=== PATIENT | female | born 1950 | race Caucasian/White ===

== ENCOUNTER 2017-10-16 13:50 | Emergency (ER) | payer MEDICARE, SELFPAY ==
[2017-10-16 13:51] VITALS: BP 154/76; PULSE 64; RESP 16; TEMP 36.9; O2SAT 99; BMI 26.4
--- NOTE | 2017-10-16 14:16 | EKG12_ITS ---
Test Reason : PALPITATIONS Blood Pressure : / mmHG Vent. Rate : 064 BPM Atrial Rate : 064 BPM P-R Int : 176 ms QRS Dur : 150 ms QT Int : 426 ms P-R-T Axes : 065 011 075 degrees QTc Int : 439 ms Sinus rhythm with Premature atrial complexes in a pattern of bigeminy Left bundle branch block Abnormal ECG Confirmed by LALITA CAICEDO ([id number]), graphics editor MAGALY STAHL ([id number]) on 10/19/2017 1:34:18 PM Referred By: Confirmed By:LALITA CAICEDO
[2017-10-16 14:52] LABS: Anion Gap 7 (5-15); BUN 19 mg/dL (7-18); BUN/Creat Ratio 20.3 RATIO (10-20); Calcium,Total 9.5 mg/dL (8.5-10.1); Chloride 112 mmol/L (98-107); Creatinine, Serum 0.94 mg/dL (0.55-1.02); EST Glomerular Filtration Rate 63 mL/min (>60); Est Glom Filt Rate - Afr Amer 76 mL/min (>60); Estimated Creatinine Clearance 56.98 ml/min; Glucose 89 mg/dL (74-106); Potassium 4.1 mmol/L (3.5-5.1); Sodium Level 145 mmol/L (136-145)
--- NOTE | 2017-10-16 16:13 | ED.VISSUMM ---
- ER Visit Summary Date of Service: 10/16/17 Chief Complaint: Palpitations for approximately 2 weeks History of Present Illness: The patient is a 67 F who has history of diabetes, hypertension hyper constantly male who presents with intermittent palpitations for the past 2 weeks. She denies any leg pain, swelling discoloration. She denies history of PE, DVT or any risk factors. She denies fever, chills night sweats. She denies heat or cold intolerance. She denies chest pain of any type. She denies dyspnea, cough, dyspnea on exertion, orthopnea or PND. She denies any GI or symptoms. Please read written note for complete detail Physical Examination: Vital signs remarkable for blood pressure 157/76. Monitor reveals sinus rhythm with frequent PACs and a pattern of atrial bigeminy. Head is atraumatic normocephalic. Pupils are equal round reactive. Extraocular muscles are intact. TMs are pearly white with landmarks noted. Nares patent with no drainage. Posterior pharynx without erythema or exudate. Uvula is midline. There is no dysphonia or dysphasia. Trachea is midline. There is no stridor with auscultation of the neck. Heart is irregular secondary to PACs. Lungs are clear to auscultation. Abdomen soft nontender. There is no asymmetry, swelling, discoloration, leg vein distention, palpable cords or tenderness along the distribution of the deep venous system. Patient is alert and oriented ?3. Motor is 5 over 5. Sensory is intact. DTRs are symmetric with no clonus or Babinski sign. Cranial 2 through 12 are intact. Cerebellar testing is normal. Test Results: BMP is remarkable slight elevation of BUN at 19. Troponin is less than 0.02. EKG reveals a sinus rhythm with premature atrial complexes and a bigeminy pattern. Emergency Department Course and Treatment: To evaluate patient's PACs electrode panel was obtained. If her potassium is low will obtain a magnesium level. In the event that this is atypical cardiac ischemic event and troponin was obtained since she has had symptoms for 2 weeks. Her troponin is less than 0.02. Treatment Plan: Follow-up with PCP Dr. Calzada Disposition: Discharged home with appropriate home-going instructions Impression: Patient secondary to premature atrial beats and atrial bigeminal pattern This note was generated with [employer] software. It may contain incorrect words, spelling, and punctuation that were not noted in review of the chart prior to signing ED Disposition - Plan for ED Patient: Disposition: Home or Assisted Living Chief Complaint: Palpitations Instructions: ED Palpitations Referrals: Davon Calzada MD [Primary Care Provider] - 1 Week if not improving
--- NOTE | 2017-10-16 16:19 | ED.VISSUMM ---
- ER Visit Summary Date of Service: 10/16/17 Chief Complaint: [] History of Present Illness: The patient is a 67 F [] Physical Examination: [] Test Results: [] Emergency Department Course and Treatment: [] Treatment Plan: [] Disposition: [] Impression: [] This note was generated with Memrise dictation software. It may contain incorrect words, spelling, and punctuation that were not noted in review of the chart prior to signing ED Disposition - Plan for ED Patient: Disposition: Home or Assisted Living Chief Complaint: Palpitations Instructions: ED Palpitations Referrals: Davon Calzada MD [Primary Care Provider] - 1 Week if not improving
[2017-10-16 16:24] VITALS: BP 115/98; PULSE 17; PULSE 58; RESP 17; O2SAT 98
== END 2017-10-16 16:32 | disposition home or self-care (01) ==
PROVIDERS: Emergency Provider Emergency Medicine; Family Provider Internal Medicine; PCP Internal Medicine
DX: I49.1 Atrial premature depolarization (principal); R00.8 Other abnormalities of heart beat; E66.9 Obesity, unspecified; E11.9 Type 2 diabetes mellitus without complications; I10 Essential (primary) hypertension; E78.00 Pure hypercholesterolemia, unspecified; Z79.82 Long term (current) use of aspirin; Z79.84 Long term (current) use of oral hypoglycemic drugs; Z79.899 Other long term (current) drug therapy
CPT/HCPCS: 80048; 84484; 93005; 99284; A4216

== ENCOUNTER → 2018-10-28 10:49 | Outpatient (CLI) | payer MEDICARE, SELFPAY ==
[2018-09-30 12:55] VITALS: BMI 26.9
--- NOTE | 2018-10-31 09:51 | PFT ---
INTRODUCTION: The patient is a 68-year-old female that presents for pulmonary function testing secondary to a diagnosis of dyspnea. Respiratory therapy reports good patient effort. Bronchodilators were used during testing. INTERPRETATION: Forced expiration spirometry demonstrates the presence of a moderate large airways obstructive ventilatory defect. There was no significant response to aerosolized bronchodilators. Spirograms are of good quality and do not plateau indicating slow emptying of the lungs. Body plethysmography was performed and reveals lung volumes to be within normal limits. Diffusing capacity by single breath CO is within normal limits as well. IMPRESSION: Irreversible moderate large airways obstructive ventilatory defect with preserved lung volumes and diffusing capacity.
== END ==
LOC: PSN 10:50
PROVIDERS: Family Provider Internal Medicine; PCP Internal Medicine; Referring Provider Internal Medicine Critical Care Medicine; Visit Provider Internal Medicine Critical Care Medicine
DX: R06.00 Dyspnea, unspecified (principal)
CPT/HCPCS: 94060; 94726; 94729

== ENCOUNTER → 2018-12-06 | Outpatient (CLI) | payer MEDICARE, SELFPAY ==
[2018-09-30 12:55] VITALS: BMI 26.9
--- NOTE | 2018-12-06 08:48 | ECHOD_ITS ---
Reason For Study: VALVE REPLACEMENT Procedure This was a 2D Doppler, Color Flow transthoracic echocardiogram. Exam performed in department. Left Ventricle Normal LV size. Left ventricular systolic function is normal. The estimated ejection fraction is 60 %. Stage 1 diastolic dysfunction. No regional wall motion abnormalities noted. Right Ventricle Normal RV size. Normal systolic function. Atria The left atrium is mildly enlarged. The right atrium is mildly enlarged. Mitral Valve There is mild mitral annular calcification. Mild (1+) eccentric mitral valve insufficiency. Tricuspid Valve Normal tricuspid valve. Mild tricuspid valve insufficiency. Pulmonary artery systolic pressure is 24 mmHg. Aortic Valve Peak aortic valve gradient 58 mmHg. Mean aortic valve gradient 35 mmHg. Moderate aortic stenosis. Calculated aortic valve area (continuity equation) is 1.1 cm2. Mild (1+) aortic valve insufficiency. Bioprosthetic aortic valve. Pulmonic Valve Normal pulmonic valve. Mild (1+) pulmonic valve insufficiency. Great Vessels Normal aortic root. The pulmonary artery is normal size. Normal inferior vena cava. Pericardium/Pleural No pericardial effusion. MMode/2D Measurements & Calculations LVIDd: 4.6 cm IVSd: 1.00 cm LVOT diam: 2.0 cm LVIDs: 3.2 cm LVPWd: 1.0 cm LVOT area: 3.2 cm2 RVDd: 4.0 cm FS: 29.9 % Ao root diam: 2.9 cm LAV(MOD-bp): 65.1 ml LA A4 area: 21.4 cm2 LAV(MOD-bp) Indexed: 34.8 ml/m2 LAV(MOD-sp2): 61.0 ml LAV(MOD-sp4): 68.3 ml LA dimension(2D): 4.1 cm RA A4 area: 21.7 cm2 Time Measurements MV dec time: 0.33 sec Doppler Measurements & Calculations MV E max dez: 85.0 cm/sec Lat Peak E' Dez: 7.9 cm/sec Med Peak E' Dez: 5.0 cm/sec MV A max dez: 106.1 cm/sec E/E' lat: 10.7 E/E' med: 16.9 MV E/A: 0.80 Ao V2 max: 382.5 cm/sec LV V1 max: 129.5 cm/sec SV(LVOT): 85.7 ml Ao max P.6 mmHg LV V1 max P.7 mmHg Ao V2 mean: 283.9 cm/sec LV V1 mean P.6 mmHg Ao mean P.3 mmHg LV V1 mean: 89.5 cm/sec Ao V2 VTI: 78.2 cm LV V1 VTI: 26.6 cm SPENCER(I,D): 1.1 cm2 SPENCER(V,D): 1.1 cm2 PA V2 max: 112.8 cm/sec PI end-d dez: 97.8 cm/sec TR max dez: 232.7 cm/sec TR max P.7 mmHg Interpretation Summary Normal LV size. Left ventricular systolic function is normal. The estimated ejection fraction is 60 %. Stage 1 diastolic dysfunction. Moderate aortic stenosis. Calculated aortic valve area (continuity equation) is 1.1 cm2. Mild (1+) aortic valve insufficiency. Bioprosthetic aortic valve. No previous for comparison Ordering Physician: Chriss Sanchez Referring Physician: JALEN BRADLEY Performed By: Meredith Nelson, CIERA, RVT
== END | disposition home or self-care (01) ==
PROVIDERS: Family Provider Internal Medicine; PCP Internal Medicine; Referring Provider Internal Medicine Critical Care Medicine; Visit Provider Internal Medicine Critical Care Medicine
DX: I35.0 Nonrheumatic aortic (valve) stenosis (principal)
CPT/HCPCS: 93306

== ENCOUNTER 2019-01-05 18:29 | Inpatient (IN) | payer MEDICARE, SELFPAY ==
[2018-12-13 12:38] VITALS: BMI 26.9
[2019-01-05] VITALS (7 sets, daily range): BP systolic 112–119; BP diastolic 55–81; PULSE 65–133; RESP 12–22; TEMP 36.6–37.3; O2SAT 97–99; BMI 28.8; BMI 26.0
--- NOTE | 2019-01-05 18:47 | EKG12_ITS ---
Test Reason : Blood Pressure : / mmHG Vent. Rate : 135 BPM Atrial Rate : 135 BPM P-R Int : 184 ms QRS Dur : 136 ms QT Int : 336 ms P-R-T Axes : -43 -25 165 degrees QTc Int : 504 ms Unusual P axis, possible atrial fluttter Left bundle branch block Abnormal ECG Confirmed by REZA RASCON, KATINA ([id number]), primer expeditor and drier MAGALY STAHL ([id number]) on 01/07/2019 6:39:44 AM Referred By: Marlen Woodson Confirmed By:KATINA COBB MD
--- NOTE | 2019-01-05 18:47 | RAD_ITS ---
STUDY: X-RAY CHEST REASON FOR EXAM: Female, 68 years old. Chest pain TECHNIQUE: Single AP portable view of the chest. COMPARISON: None. FINDINGS: The lungs are clear and expanded. There is no demonstrated pleural abnormality. Sternal cerclage wires and vascular clips are present from a prior sternotomy and coronary artery bypass graft procedure (CABG). Normal mediastinum and rosalinda. Normal visualized pulmonary arteries. Normal visualized aortic arch and descending thoracic aorta. Normal visualized thoracic spine. Normal visualized ribs, clavicles, and shoulders. There is no demonstrated abnormality of the visualized soft tissue structures of the upper abdomen. RAD/Chest 1 View (Portable) IMPRESSION: No acute chest disease. Electronically Signed: Darius Dukes MD at 19:03 EDT , Service support ,
[2019-01-05 19:15] LABS: Absolute Neutrophil Count 4.7 X10^3/uL (2.0-7.7); Basophil# 0.05 X10^3/uL; Basophil% 0.6 % (0-1); Eosinophil# 0.19 X10^3/uL; Eosinophils% 2.4 % (0-5); Hematocrit 39.9 % (37-47); Hemoglobin 13.3 g/dl (12.0-15.0); Lymphocyte % 29.3 % (19-41); Mean Corp Hgb Conc 33.3 g/gl (32-36); Mean Corpuscular Hgb 29.2 pg (27.0-32.0); Mean Corpuscular Volume 87.5 fL (81-99); Mean Platelet Vol. 10.8 fl (6.2-12.0); Monocyte# 0.64 X10^3/uL; Monocyte% 8.2 % (0-10); Neutrophil # 4.66 X10^3/uL (2.7-7.7); Neutrophil % 59.4 % (47-70); POSITIVE COUNT NO; POSITIVE DIFFERENTIAL NO; POSITIVE MORPHOLOGY NO; Platelet Count 179 K/mm3 (150-450); RBC Distribution Width CV 14.4 % (11.6-14.6); RBC Distribution Width SD 46.4 fl (35.1-43.9); Red Blood Count 4.56 M/mm3 (4.2-5.4); White Blood Count 7.9 K/mm3 (4.4-11.0)
[2019-01-05 19:17] LABS: International Normalized Ratio 1.1; Prothrombin Time (Protime)PT. 13.6 SECONDS (11.7-14.9)
[2019-01-05 19:18] LABS: Partial Thromboplast Time 29.8 Seconds (24.1-36.2)
[2019-01-05 19:20] LABS: Anion Gap 8 (5-15); BUN 20 mg/dL (7-18); Calcium,Total 9.5 mg/dL (8.5-10.1); Chloride 114 mmol/L (98-107); Creatinine, Serum 1.11 mg/dL (0.55-1.02); EST Glomerular Filtration Rate 52 mL/min (>60); Est Glom Filt Rate - Afr Amer 62 mL/min (>60); Estimated Creatinine Clearance 45.86 ml/min; Glucose 113 mg/dL (74-106); Potassium 4.1 mmol/L (3.5-5.1); Sodium Level 143 mmol/L (136-145)
[2019-01-05] MEDS: Adenosine 6 MG/2 ML Syringe IV (19:22)
--- NOTE | 2019-01-05 19:43 | EKG12_ITS ---
Test Reason : REPEAT Blood Pressure : / mmHG Vent. Rate : 061 BPM Atrial Rate : 061 BPM P-R Int : 160 ms QRS Dur : 152 ms QT Int : 428 ms P-R-T Axes : 056 -41 101 degrees QTc Int : 430 ms Normal sinus rhythm Left axis deviation Left bundle branch block Abnormal ECG Confirmed by REZA RASCON, KATINA ([id number]), newspaper copy editor MAGALY STAHL ([id number]) on 01/07/2019 6:40:04 AM Referred By: Marlen Woodson Confirmed By:KATINA COBB MD
--- NOTE | 2019-01-05 19:45 | ED.RN ---
6 MG ADENOSINE GIVEN, PT TOLERATED WELL. CARDIAC RHYTHM CONVERTED TO SINUS / SINUS ARRHYTHMIA. SECOND ECG TO CONFIRM.
--- NOTE | 2019-01-05 19:49 | ED.DCSUM_ITS ---
- ER Visit Summary Date of Service: 01/05/19 Chief Complaint: Chest tightness History of Present Illness: The patient is a 68 F who presents with chest tightness. Symptoms started yesterday and lasted for a few minutes. They recurred today. Symptoms have been going on intermittently throughout the day. Nothing seems to bring them on or make them worse. She never had this before. She has some mild shortness of breath with it but no other associated symptoms. Patient has a history of diabetes, hypertension, hyperlipidemia, and asthma. She denies any history of coronary disease. She does have a history of aortic valve replacement in 2012. She is not on blood thinners. She denies any history of PE, leg swelling, calf pain. Physical Examination: Afebrile and vital signs unremarkable except for heart rate of 133. Skin is normal without pallor or diaphoresis. Patient is alert and oriented. Heart is tachycardic but regular. Lungs are clear. Abdomen soft. Extremities nontender with no edema. Strong equal pulses. Test Results: EKG showed a monomorphic tachycardia, wide-complex at a rate of 135. Previous EKG showed a left bundle branch block pattern. CBC, BMP, troponin unremarkable. Chest x-ray showed no acute findings. Emergency Department Course and Treatment: Patient presents with a wide-complex tachycardia. She has a history of a left bundle branch block. This is monomorphic and regular. I suspect she has an underlying flutter. Patient was placed on a monitor and treated with adenosine. This immediately showed an underlying flutter pattern. The patient subsequently converted to sinus rhythm. Repeat EKG showed sinus rhythm at a rate of 61 with left bundle branch block pattern. No sign of acute ischemia or infarction pattern. Patient had aspirin prior to arrival. On further reevaluation, she remains in sinus rhythm. She is pain-free. Sitting comfortably. Breathing comfortably without symptoms. Vitals are stable. Chest x-ray and labs were otherwise unremarkable. Hospitalist was contacted to admit for further care. Treatment Plan: As above Disposition: Admission Impression: 1. Atrial flutter new onset This note was generated with [employer]ation software. It may contain incorrect words, spelling, and punctuation that were not noted in review of the chart prior to signing ED Disposition - Plan for ED Patient: Referrals: Davon Calzada MD [Primary Care Provider] -
--- NOTE | 2019-01-05 19:53 | PCM.HP.STD ---
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 insulin use: without assisted use Diabetes mellitus complication status: with unspecified complications Qualified Code(s): E11.8 - Type 2 diabetes mellitus with unspecified complications (6) Asthma Status: Chronic Qualifiers: Asthma severity: moderate Asthma persistence: persistent Asthma complication type: uncomplicated Qualified Code(s): J45.40 - Moderate persistent asthma, uncomplicated (7) GERD (gastroesophageal reflux disease) Status: Chronic Qualifiers: Esophagitis presence: esophagitis presence not specified Qualified Code(s): K21.9 - Gastro-esophageal reflux disease without esophagitis History of Present Illness Date of Admission: 01/05/19 Chief Complaint: Chest pain The patient is a 68 y/o F w/ PMHx: Asthma, HTN, HLD, GERD, Diabetes mellitus type II, Valvular Heart Disease w/ s/p Porcine AVR 2012 who presents to the [facility] ED on 01/05/19 with history of onset intermittent chest tightness with associated lightheadedness, dizziness in addition to dyspnea x2 days, worse on day of presentation with more pronounced symptoms and more episodes prompting eventual presentation to the ED. Patient rated chest tightness as mild to moderate, 4-5 out of 10, currently completely resolved. She denies having had any episodes like this prior. The ED work-up included T 99.1, heart rate 133, BP 116/81, respiratory rate 18, 97% on room air, unremarkable CBC, unremarkable coags, BMP with chloride 114, BUN/Cr 20/1.11, glucose 113, trop 0.020, chest x-ray with no acute cardiopulmonary findings, initial EKG with monomorphic tachycardia, wide-complex at a rate of 135 with administration of 6 mg adenosine following which patient demonstrated atrial flutter with eventual chemical cardioversion with demonstrated sinus rhythm with a left bundle branch block. Patient was administered aspirin and nitroglycerin per EMS prior to arrival and had been a 5 level of discomfort but improved to 3 and is noted upon evaluation was 0. Past Medical History Past Medical History (Chronic Problems): Chronic Problems (Last Reviewed 12/13/18 @ 12:53 by Re Escalona NP-C) HTN (hypertension) (Chronic) HLD (hyperlipidemia) (Chronic) H/O aortic valve replacement (Chronic) 2012 Diabetes mellitus, type II (Chronic) Aortic stenosis (Chronic) Asthma (Chronic) GERD (gastroesophageal reflux disease) (Chronic) Medical History: Medical History (Last Reviewed 12/13/18 @ 12:53 by Re Escalona NP-C) Asthma with acute exacerbation J45.901 Bradycardia R00.1 Cough R05 Lichen planus L43.9 Pneumonia J18.9 Aortic stenosis I35.0 Asthma, moderate persistent J45.40 Carpal tunnel syndrome G56.00 GERD (gastroesophageal reflux disease) K21.9 HLD (hyperlipidemia) E78.5 HTN (hypertension) I10 Seasonal allergies J30.2 Type 2 diabetes mellitus E11.9 Allergies Penicillins Allergy (Verified 01/05/19 18:30) Shortness of breath Home Medications: Ambulatory Orders Medication Instructions Recorded Lisinopril [Zestril] 5 mg PO DAILY 09/06/16 Pravastatin [Pravachol] 40 mg PO DAILY 09/06/16 Ranitidine [Zantac] 150 mg PO BID 09/06/16 fluticasone furoate 200 1 inh INHALATION DAILY #3 device 11/16/17 mcg-vilanterol 25 mcg/dose inhalation powder metformin 500 mg tablet 500 mg PO DAILY 12/01/17 albuterol sulfate HFA 90 2 puff INHALATION Q6H PRN #18 g 07/01/18 mcg/actuation aerosol inhaler Cholecalciferol (Vitamin D3) 2,000 unit PO DAILY 01/05/19 [D3-1999] Surgical History: Surgical History (Last Reviewed 12/13/18 @ 12:53 by STEPHANY Christiansen) H/O aortic valve replacement Z95.2 01/25/13 History of tonsillectomy Z90.89 Hx of cataract extraction Z98.49 S/P surgical removal of pilonidal cyst Z98.890 Surgical History: - - Tonsillectomy, aortic valve replacement with porcine valve, pilonidal cyst removal in use, cataract surgery bilaterally. 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 Denies: Chills, Fever, Weight Change HEENT: Denies: Head Aches, Sinus Congestion, Sinus Drainage Cardiovascular: Reports: Chest Pain, Chest Tightness, Heaviness, Light Headedness. Denies: Edema, Orthopnea, Palpitations, Syncope Respiratory: Reports: Shortness of Breath. Denies: Cough, Shortness of breath at rest, Shortness of breath upon exertion, Sputum production, Wheezing Gastrointestinal: Denies: Abdominal Pain, Nausea, Vomiting Genitourinary: Denies: Dysuria Musculoskeletal: Denies: Joint Pain, Joint Tenderness Skin: Denies: Rash, Wounds Neurological: Denies: Numbness, Tingling, Focal weakness Psychiatric: Denies: Anxiety, Depression, Homicidal Ideations, Suicidal Ideations Hematologic/ Lymphatic: Denies: Easy Bruising, Easy Bleeding VTE Information - Inpt Only VTE Present on Admission: No VTE Mechan Device Prophylaxis: SCD's VTE Pharm Prophylaxis ordered?: Yes Patient Problems: Active and Suspected Problems (Last Reviewed 12/13/18 @ 12:53 by Re Escalona NP-Noah) Atrial flutter with rapid ventricular response (Acute) Subjective: Seated upright in ED bed, no acute distress, complete resolution of prior chest tightness. Objective: Physical Examination: General: awake, alert, oriented x 3 and cooperative, seated upright in the ED bed in no apparent distress. Skin: normal color, turgor, no icterus, cyanosis. HEENT: AT/NC, EOMI, PERRLA, MMM, no carotid bruits or JVD noted. Lungs: CTA bilaterally, moderate effort, mild decrease BL bases, no rales, ronchi or wheezing. Heart: Remains converted, Regular rate and rhythm; no gallop, rub audible, SM present, s/p AVR. Abdomen: soft, NTTP, ND, normal BS, no HSM. Extremities: no cyanosis, clubbing, or edema. Neurological: patient awake, alert, oriented x 3; cognitive function intact; pupils equally reactive to light and accomodation; cranial nerves II-XII grossly normal, moving all 4 extremities, no focal deficits, strength mildly globally decreased secondary to acute hesitation, improved. Psychiatric: affect appears normal, no acute evidence of depressive or anxiety feelings. - Physical Exam Vital Signs Temp Pulse Resp BP Pulse Ox 99.1 F 67 12 119/73 99 01/05/19 18:31 01/05/19 19:45 01/05/19 19:45 01/05/19 19:45 01/05/19 19:45 Oxygen Flow Rate (L/min) 2 Oxygen Delivery Method Nasal Cannula Weight: 183 lb 10.321 oz Body Mass Index (BMI) 28.8 Laboratory Tests Past 24 Hrs 01/05/19 01/05/19 01/05/19 18:56 18:56 18:56 WBC 7.9 RBC 4.56 Hgb 13.3 Hct 39.9 MCV 87.5 MCH 29.2 MCHC 33.3 RDW 14.4 RDW Differential 46.4 H Plt Count 179 MPV 10.8 Immature Gran % (Auto) 0.100 Neut % (Auto) 59.4 Lymph % (Auto) 29.3 [place] % (Auto) 8.2 Eos % (Auto) 2.4 Baso % (Auto) 0.6 Absolute Neuts (auto) 4.7 Absolute Lymphs (auto) 2.30 Total Counted Not Reportable PT 13.6 INR 1.1 APTT 29.8 Sodium 143 Potassium 4.1 Chloride 114 H Carbon Dioxide 21.0 Anion Gap 8 BUN 20 H Creatinine 1.11 H Estim Creat Clear Calc 45.86 Est GFR (MDRD) Af Amer 62 Est GFR (MDRD) Non-Af 52 L BUN/Creatinine Ratio 18.0 Glucose 113 H Calcium 9.5 Troponin I 0.020 Assessment/Plan All Active Problems (Last Reviewed 12/13/18 @ 12:53 by Re Escalona, DALTON-C) Atrial flutter with rapid ventricular response (Acute) The patient is a 68 y/o F w/ PMHx: Asthma, HTN, HLD, GERD, Diabetes mellitus type II, Valvular Heart Disease w/ s/p Porcine AVR 2012 who presents to the [facility] ED on 01/05/19 with history of onset intermittent chest tightness with associated lightheadedness, dizziness in addition to dyspnea x2 days, worse on day of presentation with more pronounced symptoms and more episodes prompting eventual presentation to the ED. (1) New onset, Paroxsymal atrial flutter with associated chest tightness, dyspnea: ED work-up included T 99.1, heart rate 133, BP 116/81, respiratory rate 18, 97% on room air, unremarkable CBC, unremarkable coags, BMP with chloride 114, BUN/Cr 20/1.11, glucose 113, trop 0.020, chest x-ray with no acute cardiopulmonary findings, initial EKG with monomorphic tachycardia, wide-complex at a rate of 135 with administration of 6 mg adenosine following which patient demonstrated atrial flutter with eventual chemical cardioversion with demonstrated sinus rhythm with a left bundle branch block. Will admit to PCU, maintain on telemetry, obtain cardiac enzyme serial set, obtain magnesium level, obtain ECHO, obtain TSH level. CHADs scoring appropriate for consideration of anticoagulation versus ASA therapy. Will initiate oral cardizem, monitor given concurrent disease history and following conversion in ED BP low normal, HR 60s, may not tolerate. Maintain on therapeutic lovenox while monitoring. (2) Chronic Asthma: Hold home inhalers,maintain on duonebs, PRN albuterol, HOB, IS parameters. (3) Hypertension: Continue home regimen including lisinopril, Cardizem as noted with close monitoring, PRN hydralazine. (4) Hyperlipidemia: Continue home statin regimen. AM FLP. (5) Diabetes mellitus type II: Hold oral home regimen, ADA diet, accu checks w/ ISS. (6) ? CKD stage III: Admission BUN/Cr 20/1.11, unclear if CKD, repeat BMP in AM. (7) GERD: Continue home ranitidine. (8) Valvular Heart Disease: history, s/p 2012 AVR porcine, pending ECHO as noted. (9) DVT Prophylaxis: SCDs, lovenox. Code Visit OBSV E&M: 77329 Initial observation care L3
--- NOTE | 2019-01-05 19:56 | HP.PCM_ITS ---
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: without intermediate use Diabetes me llitus complication status: with unspecified complications Qualified Code(s): E11.8 - Type 2 diabetes mellitus with unspecified complications (6) Asthma Status: Chronic Qualifiers: Asthma severity: moderate Asthma persistence: persistent Asthma complication type: uncomplicated Qualified Code(s): J45.40 - Moderate persistent asthma, uncomplicated (7) GERD (gastroesophageal reflux disease) Status: Chronic Qualifiers: Esophagitis presence: esophagitis presence not specified Qualified Code(s): K21.9 - Gastro-esophageal reflux disease without esophagitis History of Present Illness Date of Admission: 01/05/19 Chief Complaint: Chest pain The patient is a 68 y/o F w/ PMHx: Asthma, HTN, HLD, GERD, Diabetes mellitus type II, Valvular Heart Disease w/ s/p Porcine AVR 2012 who presents to the [facility] ED on 01/05/19 with history of onset intermittent chest tightness with associated lightheadedness, dizziness in addition to dyspnea x2 days, worse on day of presentation with more pronounced symptoms and more episodes prompting eventual presentation to the ED. Patient rated chest tightness as mild to moderate, 4-5 out of 10, currently completely resolved. She denies having had any episodes like this prior. The ED work-up included T 99.1, heart rate 133, BP 116/81, respiratory rate 18, 97% on room air, unremarkable CBC, unremarkable coags, BMP with chloride 114, BUN/Cr 20/1.11, glucose 113, trop 0.020, chest x- ray with no acute cardiopulmonary findings, initial EKG with monomorphic tachycardia, wide-complex at a rate of 135 with administration of 6 mg adenosine following which patient demonstrated atrial flutter with eventual chemical cardioversion with demonstrated sinus rhythm with a left bundle branch block. Patient was administered aspirin and nitroglycerin per EMS prior to arrival and had been a 5 level of discomfort but improved to 3 and is noted upon evaluation was 0. Past Medical History Past Medical History (Chronic Problems): Chronic Problems (Last Reviewed 12/13/18 @ 12:53 by Re Escalona NP-C) HTN (hypertension) (Chronic) HLD (hyperlipidemia) (Chronic) H/O aortic valve replacement (Chronic) Porcine 2012 Diabetes mellitus, type II (Chronic) Aortic stenosis (Chronic) Asthma (Chronic) GERD (gastroesophageal reflux disease) (Chronic) Medical History: Medical History (Last Reviewed 12/13/18 @ 12:53 by STEPHANY Christiansen) Asthma with acute exacerbation J45.901 Bradycardia R00.1 Cough R05 Lichen planus L43.9 Pneumonia J18.9 Aortic stenosis I35.0 Asthma, moderate persistent J45.40 Carpal tunnel syndrome G56.00 GERD (gastroesophageal reflux disease) K21.9 HLD (hyperlipidemia) E78.5 HTN (hypertension) I10 Seasonal allergies J30.2 Type 2 diabetes mellitus E11.9 Allergies Penicillins Allergy (Verified 01/05/19 18:30) Shortness of breath Home Medications: Ambulatory Orders Medication Instructions Recorded Lisinopril [Zestril] 5 mg PO DAILY 09/06/16 Pravastatin [Pravachol] 40 mg PO DAILY 09/06/16 Ranitidine [Zantac] 150 mg PO BID 09/06/16 fluticasone furoate 200 1 inh INHALATION DAILY #3 device 11/16/17 mcg-vilanterol 25 mcg/dose inhalation powder metformin 500 mg tablet 500 mg PO DAILY 12/01/17 albuterol sulfate HFA 90 2 puff INHALATION Q6H PRN #18 g 07/01/18 mcg/actuation aerosol inhaler Cholecalciferol (Vitamin D3) 2,000 unit PO DAILY 01/05/19 [D3-2000] Surgical History: Surgical History (Last Reviewed 12/13/18 @ 12:53 by STEPHANY Christiansen) H/O aortic valve replacement Z95.2 01/25/13 History of tonsillectomy Z90.89 Hx of cataract extraction Z98.49 S/P surgical removal of pilonidal cyst Z98.890 Surgical History: - - Tonsillectomy, aortic valve replacement with porcine valve, pilonidal cyst removal in use, cataract surgery bilaterally. 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 Denies: Chills, Fever, Weight Change HEENT: Denies: Head Aches, Sinus Congestion, Sinus Drainage Cardiovascular: Reports: Chest Pain, Chest Tightness, Heaviness, Light Headedness. Denies: Edema, Orthopnea, Palpitations, Syncope Respiratory: Reports: Shortness of Breath. Denies: Cough, Shortness of breath at rest, Shortness of breath upon exertion, Sputum production, Wheezing Gastrointestinal: Denies: Abdominal Pain, Nausea, Vomiting Genitourinary: Denies: Dysuria Musculoskeletal: Denies: Joint Pain, Joint Tenderness Skin: Denies: Rash, Wounds Neurological: Denies: Numbness, Tingling, Focal weakness Psychiatric: Denies: Anxiety, Depression, Homicidal Ideations, Suicidal Ideations Hematologic/ Lymphatic: Denies: Easy Bruising, Easy Bleeding VTE Information - Inpt Only VTE Present on Admission: No VTE Mechan Device Prophylaxis: SCD's VTE Pharm Prophylaxis ordered?: Yes Patient Problems: Active and Suspected Problems (Last Reviewed 12/13/18 @ 12:53 by STEPHANY Christiansen) Atrial flutter with rapid ventricular response (Acute) Subjective: Seated upright in ED bed, no acute distress, complete resolution of prior chest tightness. Objective: Physical Examination: General: awake, alert, oriented x 3 and cooperative, seated upright in the ED bed in no apparent distress. Skin: normal color, turgor, no icterus, cyanosis. HEENT: AT/NC, EOMI, PERRLA, MMM, no carotid bruits or JVD noted. Lungs: CTA bilaterally, moderate effort, mild decrease BL bases, no rales, ronchi or wheezing. Heart: Remains converted, Regular rate and rhythm; no gallop, rub audible, SM present, s/p AVR. Abdomen: soft, NTTP, ND, normal BS, no HSM. Extremities: no cyanosis, clubbing, or edema. Neurological: patient awake, alert, oriented x 3; cognitive function intact; pupils equally reactive to light and accomodation; cranial nerves II-XII grossly normal, moving all 4 extremities, no focal deficits, strength mildly globally decreased secondary to acute hesitation, improved. Psychiatric: affect appears normal, no acute evidence of depressive or anxiety feelings. - Physical Exam Vital Signs Temp Pulse Resp BP Pulse Ox 99.1 F 67 12 119/73 99 01/05/19 18:31 01/05/19 19:45 01/05/19 19:45 01/05/19 19:45 01/05/19 19:45 Oxygen Flow Rate (L/min) 2 Oxygen Delivery Method Nasal Cannula Weight: 183 lb 10.321 oz Body Mass Index (BMI) 28.8 Laboratory Tests Past 24 Hrs 01/05/19 01/05/19 01/05/19 18:56 18:56 18:56 WBC 7.9 RBC 4.56 Hgb 13.3 Hct 39.9 MCV 87.5 MCH 29.2 MCHC 33.3 RDW 14.4 RDW Differential 46.4 H Plt Count 179 MPV 10.8 Immature Gran % (Auto) 0.100 Neut % (Auto) 59.4 Lymph % (Auto) 29.3 [place] % (Auto) 8.2 Eos % (Auto) 2.4 Baso % (Auto) 0.6 Absolute Neuts (auto) 4.7 Absolute Lymphs (auto) 2.30 Total Counted Not Reportable PT 13.6 INR 1.1 APTT 29.8 Sodium 143 Potassium 4.1 Chloride 114 H Carbon Dioxide 21.0 Anion Gap 8 BUN 20 H Creatinine 1.11 H Estim Creat Clear Calc 45.86 Est GFR (MDRD) Af Amer 62 Est GFR (MDRD) Non-Af 52 L BUN/Creatinine Ratio 18.0 Glucose 113 H Calcium 9.5 Troponin I 0.020 Assessment/Plan All Active Problems (Last Reviewed 12/13/18 @ 12:53 by Re Escalona, DALTON-C) Atrial flutter with rapid ventricular response (Acute) The patient is a 68 y/o F w/ PMHx: Asthma, HTN, HLD, GERD, Diabetes mellitus type II, Valvular Heart Disease w/ s/p Porcine AVR 2012 who presents to the [facility] ED on 01/05/19 with history of onset intermittent chest tightness with associated lightheadedness, dizziness in addition to dyspnea x2 days, worse on day of presentation with more pronounced symptoms and more episodes prompting eventual presentation to the ED. (1) New onset, Paroxsymal atrial flutter with associated chest tightness, dyspnea: ED work-up included T 99.1, heart rate 133, BP 116/81, respiratory rate 18, 97% on room air, unremarkable CBC, unremarkable coags, BMP with chloride 114, BUN/Cr 20/1.11, glucose 113, trop 0.020, chest x-ray with no acute cardiopulmonary findings, initial EKG with monomorphic tachycardia, wide-complex at a rate of 135 with administration of 6 mg adenosine following which patient demonstrated atrial flutter with eventual chemical cardioversion with demonstrated sinus rhythm with a left bundle branch block. Will admit to PCU, maintain on telemetry, obtain cardiac enzyme serial set, obtain magnesium level, obtain ECHO, obtain TSH level. CHADs scoring appropriate for consideration of anticoagulation versus ASA therapy. Will initiate oral cardizem, monitor given concurrent disease history and following conversion in ED BP low normal, HR 60s, may not tolerate. Maintain on therapeutic lovenox while monitoring. (2) Chronic Asthma: Hold home inhalers,maintain on duonebs, PRN albuterol, HOB, IS parameters. (3) Hypertension: Continue home regimen including lisinopril, Cardizem as noted with close monitoring, PRN hydralazine. (4) Hyperlipidemia: Continue home statin regimen. AM FLP. (5) Diabetes mellitus type II: Hold oral home regimen, ADA diet, accu checks w/ ISS. (6) ? CKD stage III: Admission BUN/Cr 20/1.11, unclear if CKD, repeat BMP in AM. (7) GERD: Continue home ranitidine. (8) Valvular Heart Disease: history, s/p 2012 AVR porcine, pending ECHO as noted. (9) DVT Prophylaxis: SCDs, lovenox. Code Visit OBSV E&M: [id number] Initial observation care L3
--- NOTE | 2019-01-05 20:55 | EKG12_ITS ---
Test Reason : CP ADMIT Blood Pressure : / mmHG Vent. Rate : 062 BPM Atrial Rate : 062 BPM P-R Int : 180 ms QRS Dur : 152 ms QT Int : 438 ms P-R-T Axes : 067 -40 110 degrees QTc Int : 444 ms Normal sinus rhythm Left axis deviation Left bundle branch block Abnormal ECG When compared with ECG of 16-OCT-2017 14:09, Premature atrial complexes are no longer Present Confirmed by ODETTE RASCON, BENTLEY ([id number]), photo editor MAGALY STAHL ([id number]) on 01/07/2019 8:31:11 AM Referred By: Marlen Woodson Confirmed By:BENTLEY PINO MD
[2019-01-05 21:21] LABS: Magnesium 2.1 mg/dL (1.6-2.6)
[2019-01-05] MEDS: dilTIAZem CD 120 MG Capsule PO (22:27)
[2019-01-05] MEDS: Enoxaparin 80 MG/0.8 ML Syringe SC (22:27)
[2019-01-05] MEDS: Pravastatin 40 MG Tablet PO (22:29)
[2019-01-05] MEDS: Famotidine 20 MG Tablet PO (22:29)
[2019-01-06] VITALS (15 sets, daily range): BP systolic 96–121; BP diastolic 51–71; PULSE 51–126; RESP 16–18; TEMP 36.4–36.8; O2SAT 96–100
[2019-01-06 00:21] LABS: Bedside Glucose 108 mg/dL (70-110)
[2019-01-06 05:43] LABS: Absolute Lymphocyte Count 2.09 X10^3/ul (0.83-4.51); Absolute Neutrophil Count 3.6 X10^3/uL (2.0-7.7); Basophil# 0.02 X10^3/uL; Basophil% 0.3 % (0-1); Eosinophil# 0.22 X10^3/uL; Eosinophils% 3.4 % (0-5); Hematocrit 36.9 % (37-47); Hemoglobin 12.1 g/dl (12.0-15.0); Lymphocyte # 2.09 X10^3/ul (4.0); Lymphocyte % 32.4 % (19-41); Mean Corp Hgb Conc 32.8 g/gl (32-36); Mean Corpuscular Hgb 29.4 pg (27.0-32.0); Mean Corpuscular Volume 89.8 fL (81-99); Mean Platelet Vol. 11.3 fl (6.2-12.0); Monocyte# 0.55 X10^3/uL; Monocyte% 8.5 % (0-10); Neutrophil # 3.57 X10^3/uL (2.7-7.7); Neutrophil % 55.4 % (47-70); Platelet Count 151 K/mm3 (150-450); RBC Distribution Width CV 14.7 % (11.6-14.6); RBC Distribution Width SD 47.6 fl (35.1-43.9); Red Blood Count 4.11 M/mm3 (4.2-5.4); White Blood Count 6.5 K/mm3 (4.4-11.0)
[2019-01-06 05:45] LABS: POSITIVE COUNT NO; POSITIVE DIFFERENTIAL NO; POSITIVE MORPHOLOGY NO
[2019-01-06 06:13] LABS: Anion Gap 8 (5-15); BUN 21 mg/dL (7-18); BUN/Creat Ratio 23.3 RATIO (10-20); Calcium,Total 8.8 mg/dL (8.5-10.1); Chloride 113 mmol/L (98-107); Cholesterol 134 mg/dL (200); EST Glomerular Filtration Rate 65 mL/min (>60); Est Glom Filt Rate - Afr Amer 79 mL/min (>60); Estimated Creatinine Clearance 56.56 ml/min; Glucose 106 mg/dL (74-106); High Density Lipoprotein 39 mg/dL; Potassium 4.2 mmol/L (3.5-5.1); Sodium Level 143 mmol/L (136-145); Thyroid Stim Hormone (TSH) 5.43 uIU/mL (0.358-3.74); Triglycerides 149 mg/dL; Very Low Density Lipoprotein 30 mg/dL (5-40)
[2019-01-06 07:00] LABS: Bedside Glucose 99 mg/dL (70-110)
[2019-01-06] MEDS: Ipratropium/Albuterol Sulfate 3 ML AMPUL.NEB INHALATION ×2 (07:04→19:22)
[2019-01-06] MEDS: Enoxaparin 80 MG/0.8 ML Syringe SC ×2 (09:12→21:11)
[2019-01-06] MEDS: Lisinopril 5 MG Tablet PO (09:13)
[2019-01-06] MEDS: Famotidine 20 MG Tablet PO ×2 (09:13→21:07)
--- NOTE | 2019-01-06 09:16 | PCM.CONS.C ---
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: without regional intermodal truck driver use Diabetes mellitus complication status: with unspecified complications Qualified Code(s): E11.8 - Type 2 diabetes mellitus with unspecified complications (6) Asthma Status: Chronic Qualifiers: Asthma severity: moderate Asthma persistence: persistent Asthma complication type: uncomplicated Qualified Code(s): J45.40 - Moderate persistent asthma, uncomplicated (7) GERD (gastroesophageal reflux disease) Status: Chronic Qualifiers: Esophagitis presence: esophagitis presence not specified Qualified Code(s): K21.9 - Gastro-esophageal reflux disease without esophagitis Reason for Consult Date of Consultation: 01/06/19 History of Present Illness: The patient is a 68 year old white female with a past medical history which is included underlying lipidemia, hypertension, aortic valve disease status post aortic valve [id number], superimposed upon a history of underlying diabetes mellitus, COPD/asthma, and GERD who presents for evaluation of atrial flutter. The patient states that to the best of her knowledge she has never had any cardiac dysrhythmias before. She has noted off and on palpitations. However yesterday she noted a combination of symptoms which included palpitations, chest discomfort, shortness of breath/dyspnea, feeling lightheaded and dizzy and as if she may lose consciousness but she did not, and subsequently presented to the emergency department and was subsequently diagnosed with atrial flutter with a rapid ventricular response. In the emergency department she was evaluated and treated with IV adenosine which subsequently was reported as identifying her underlying atrial flutter. She was reported as subsequently spontaneously converting to sinus rhythm. She was placed in the PCU for further evaluation and care. She is undergone cardiac enzymes which have been negative. Her ECG has demonstrated underlying sinus rhythm with a left axis deviation and a left bundle branch block pattern. In comparison to a previous ECG available from 10-16-2017 the aforementioned left bundle branch block pattern was present at that time. A chest x-ray was performed which demonstrated post open heart surgery changes with no acute cardiopulmonary disease process. She states on her good days she otherwise feels well with no similar type symptoms. She does not describe symptoms of ongoing chest discomfort at rest or with exertion. There is been no orthopnea, PND, or peripheral pitting edema. There has been no near syncope or syncope. She had a transthoracic echocardiogram performed on 12-06-18. At that time her left ventricle was normal with an LVEF of 60% with mild biatrial enlargement mild mitral annular consultation with mild MR, mild TR, and a bioprosthetic aortic valve in place with a mean gradient of 35 mmHg and a calculated aortic valve area 1.1 cm? compatible with moderate aortic valve stenosis with associated mild aortic valve insufficiency, mild HI, and estimated RV systolic pressure 24 mmHg, and decreased diastolic compliance. Past Medical History Allergies/Adverse Reactions: Allergies Penicillins Allergy (Verified 01/05/19 18:30) Shortness of breath Home Medications: Ambulatory Orders Medication Instructions Recorded Lisinopril [Zestril] 5 mg PO DAILY 09/06/16 Pravastatin [Pravachol] 40 mg PO DAILY 09/06/16 Ranitidine [Zantac] 150 mg PO BID 09/06/16 fluticasone furoate 200 1 inh INHALATION DAILY #3 device 11/16/17 mcg-vilanterol 25 mcg/dose inhalation powder metformin 500 mg tablet 500 mg PO DAILY 12/01/17 albuterol sulfate HFA 90 2 puff INHALATION Q6H PRN #18 g 07/01/18 mcg/actuation aerosol inhaler Cholecalciferol (Vitamin D3) 2,000 unit PO DAILY 01/05/19 [D3-2000] Past Medical History (Chronic Problems): Chronic Problems (Last Reviewed 12/13/18 @ 12:53 by Re Escalona NP-C) HTN (hypertension) (Chronic) HLD (hyperlipidemia) (Chronic) H/O aortic valve replacement (Chronic) Porcine 2012 Diabetes mellitus, type II (Chronic) Aortic stenosis (Chronic) Asthma (Chronic) GERD (gastroesophageal reflux disease) (Chronic) Surgical History: - - Tonsillectomy, aortic valve replacement with porcine valve, pilonidal cyst removal in use, cataract surgery bilaterally. 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 - *Family History Maternal Family History: Family History (Last Reviewed 12/13/18 @ 12:53 by STEPHANY Christiansen) Mother Diabetes Aunt Breast cancer Father Cancer History Items: Diabetes Paternal Family History: Family History (Last Reviewed 12/13/18 @ 12:53 by STEPHANY Christiansen) Mother Diabetes Aunt Breast cancer Father Cancer History Items: Cancer Lives: Alone Smoking Status: Never smoker Tobacco Use: Non-smoker Alcohol: Occasional Drugs: None Review of Systems - Review of Systems General: Denies: Fever, Night Sweats, Fatigue Cardiovascular: Reports: Chest Discomfort, Palpitations, Near Syncope. Denies: Shortness of Breath, Orthopnea, PND, Peripheral Edema, Lightheadedness, Dizziness, Syncope Respiratory: Reports: Shortness of Breath. Denies: Cough, Sputum Production, Hemoptysis Gastrointestinal: Denies: Hematemesis, Hematochezia, Melena Genitourinary: Denies: Dysuria, Hematuria Skin: Denies: Rash Subjectve: This is a 68-year-old white female appears resting comfortably at the moment in no acute distress. Objective: Vital Signs Temp Pulse Resp BP Pulse Ox 98.3 F 64 17 111/51 L 99 01/06/19 08:42 01/06/19 08:42 01/06/19 08:42 01/06/19 08:42 01/06/19 08:42 Oxygen Flow Rate (L/min) 1.5 Oxygen Delivery Method Room Air Weight: 166 lb Body Mass Index (BMI) 28.8 Intake and Output for Last 24 Hours 01/04/19 01/05/19 01/06/19 23:59 23:59 23:59 Intake Total 240 / 240 60 / 60 Balance 240 / 240 60 / 60 General: Awake, Alert, Oriented x 3, Cooperative, No Acute Distress HEENT: Atraumatic, Normocephalic, PERRL, EOMI, Sclera Non Icteric Oral: Moist Mucosa Neck: Supple, Good ROM, No JVD Lungs: Expiratory Wheezes-Leonidas Cardiovascular: Regular Rhythm, Normal S1, Normal S2 Murmur Murmur: Grade 3/6, Harsh, Mid Systolic, LLSB, LVOT, Sternal Notch Vascular: Leonidas Carotid Artery Bruits Abdomen: Bowel Sounds Present, Soft, Non Tender Extremities: No Cyanosis, No Clubbing, No edema Neurological: No Focal Motor or Sensory Deficit Psych/Mental Status: Appropriate 01/05/19 18:56: WBC 7.9, RBC 4.56, Hgb 13.3, Hct 39.9, MCV 87.5, MCH 29.2, MCHC 33.3, RDW 14.4, RDW Differential 46.4 H, Plt Count 179, MPV 10.8, Immature Gran % (Auto) 0.100, Neut % (Auto) 59.4, Lymph % (Auto) 29.3, [place] % (Auto) 8.2, Eos % (Auto) 2.4, Baso % (Auto) 0.6, Absolute Neuts (auto) 4.7, Total Counted Not Reportable 01/05/19 18:56: PT 13.6, INR 1.1, APTT 29.8 01/05/19 18:56: Sodium 143, Potassium 4.1, Chloride 114 H, Carbon Dioxide 21.0, Anion Gap 8, BUN 20 H, Creatinine 1.11 H, Est GFR (MDRD) Af Amer 62, Est GFR (MDRD) Non-Af 52 L, BUN/Creatinine Ratio 18.0, Glucose 113 H, Calcium 9.5, Troponin I 0.020 01/05/19 18:56: Magnesium 2.1 01/05/19 21:55: Troponin I 0.023 01/06/19 00:40: Troponin I 0.018 01/06/19 05:25: Sodium 143, Potassium 4.2, Chloride 113 H, Carbon Dioxide 22.0, Anion Gap 8, BUN 21 H, Creatinine 0.90, Est GFR (MDRD) Af Amer 79, Est GFR (MDRD) Non-Af 65, BUN/Creatinine Ratio 23.3 H, Glucose 106, Calcium 8.8, Triglycerides 149, Cholesterol 134, LDL Cholesterol 65, VLDL Cholesterol 30, HDL Cholesterol 39 L 01/06/19 05:25: WBC 6.5, RBC 4.11 L, Hgb 12.1, Hct 36.9 L, MCV 89.8, MCH 29.4, MCHC 32.8, RDW 14.7 H, RDW Differential 47.6 H, Plt Count 151, MPV 11.3, Immature Gran % (Auto) 0.000, Neut % (Auto) 55.4, Lymph % (Auto) 32.4, [place] % (Auto) 8.5, Eos % (Auto) 3.4, Baso % (Auto) 0.3, Absolute Neuts (auto) 3.6, Total Counted Not Reportable Rhythm: Sinus rhythm/sinus bradycardia EKG: As noted above ECHO: As noted above CXR: As noted above Assessment/Plan 1. Atrial flutter with rapid ventricular response The patient appears to have demonstrated evidence of atrial flutter with a rapid ventricular response. This was further identified in the emergency department after IV adenosine demonstrating the underlying atrial flutter activity. The patient has had subsequent spontaneous return to sinus rhythm/sinus bradycardia. The patient does have an underlying IVCD/left bundle branch block pattern. At the present time this may be secondary to combination of factors. This could include the patient's age, history of hypertension, history of cardiovascular disease, history of pulmonary disease, etc. At the moment she is being monitored. Her rhythm remains sinus/sinus bradycardia. She will continue rate control therapy as deemed appropriate taking to consideration concerns of potential sinus bradycardia. She will continue anticoagulant therapy as deemed appropriate. She may need to be considered for antiarrhythmic therapy as well again taking into consideration concerns of potential sinus bradycardia. Depending upon her clinical course she may need future EP consultation for possible EPS/RFA. Also if the bradycardia becomes an issue she may need to be considered for permanent pacemaker support. In the interim she will undergo further evaluation of her cardiovascular disease history and process. This will include an attempt at regaining additional cardiovascular records. This will will also include a pharmacologic stress nuclear imaging study to evaluate for any obvious underlying CAD/myocardial ischemia that would be contributing to her symptoms and/or her objective findings. 2. Aortic valve disease status post aortic valve replacement At the present time she has undergone recent evaluation of her aortic valve by transthoracic echocardiogram as noted above. An attempt will be made to obtain previous medical records to assist in knowledge of her aortic valve disease process. She will need continued future follow-up as an inpatient and outpatient as deemed appropriate to monitor her aortic valve. She also needs continued AHA antibiotic prophylaxis. 3. Hyperlipidemia She will continue medical management. 4. Hypertension She will continue medical therapy with adjustment as needed taking into consideration concerns of any rate limiting factors. 5. Diabetes mellitus She will continue under the care of internal medicine. 6. OPD She will continue under the care of internal medicine and pulmonology as needed. 7. GERD She will continue medical therapy as deemed appropriate. Comment: The patient's case was discussed reviewed with the patient and her daughter. This note was generated with [employer] dictation software. It may contain incorrect words, spelling, and punctuation that were not noted in checking the note before signing.
--- NOTE | 2019-01-06 10:28 | CASEMGMT ---
SW met with patient as she requested a Medicaid application. SW gave patient a Medicaid application along with phone, fax, and address to [facility]. Pricilla PENALOZA MSW
[2019-01-06 11:40] LABS: Bedside Glucose 105 mg/dL (70-110)
--- NOTE | 2019-01-06 12:54 | EKG12_ITS ---
Test Reason : MED Blood Pressure : / mmHG Vent. Rate : 049 BPM Atrial Rate : 049 BPM P-R Int : 184 ms QRS Dur : 150 ms QT Int : 488 ms P-R-T Axes : 055 -18 100 degrees QTc Int : 440 ms Sinus bradycardia with Premature atrial complexes Left bundle branch block Abnormal ECG When compared with ECG of 06-JAN-2019 12:56, MANUAL COMPARISON REQUIRED, DATA IS UNCONFIRMED Confirmed by ODETTE RASCON, BENTLEY ([id number]), society editor MAGALY STAHL ([id number]) on 01/07/2019 8:10:01 AM Referred By: Marlen Woodson Confirmed By:BENTLEY PINO MD
[2019-01-06] MEDS: Metoprolol Tartrate 25 MG Tablet 12.5 MG PO ×2 (12:56→21:07)
--- NOTE | 2019-01-06 13:14 | STRESSREP_ITS ---
Stress Test Report Date: 01-06-19 Procedure: Pharmacologic stress nuclear imaging study Indications: Chest pain; shortness of breath; palpitations; atrial flutter; status post aortic valve replacement; abnormal ECG-left bundle branch block pattern Consent: Per the patient Procedure: The patient underwent pharmacologic (Regadenoson) evaluation with a peak heart rate of 86 beats per minute (57 %predicted maximal heart rate) and a peak blood pressure of 120/62 mmHg. The baseline ECG demonstrated sinus bradycardia; left bundle branch block pattern. The peak pharmacologic ECG demonstrated no obvious ECG changes. There were occasional PACs and PVCs pretest, occasional PACs during infusion, and occasional PACs/PVCs during recovery. There was no complaint of chest discomfort during pharmacologic infusion or recovery. The examination was discontinued secondary to completion of protocol. Impression: 1. Pharmacologic (Regadenoson) evaluation 2. Peak pharmacologic ECG with continued left bundle branch block pattern. 3. There were occasional PACs and PVCs pretest, occasional PACs during infusion, and occasional PACs/PVCs during recovery. 4. Nuclear images pending Myocardial perfusion imaging study: Technique: The patient was injected with 12.0 millicuries of technetium 99m Cardiolite and subsequently rest SPECT Cardiolite nuclear imaging was obtained in the horizontal long, vertical long, and short axis views. The patient underwent pharmacologic (Regadenoson) evaluation with a peak heart rate of 86 beats per minute (57 % percent predicted maximal heart rate) and a peak blood pressure of 120/62 mmHg. The patient was injected with 34.2 millicuries of technetium 99m Cardiolite and subsequently stress SPECT Cardiolite nuclear imaging was obtained in the horizontal long, vertical long, and short axis views. A gated Cardiolite study at peak stress was obtained. Interpretation: Rest and stress SPECT Cardiolite nuclear imaging status post realignment, normalization, and attenuation correction demonstrate a small area of subtle diminished tracer uptake near the apical segments without significant change between rest and stress.. There is end systolic thickening and brightening. The gated Cardiolite study demonstrates myocardial thickening and inward wall motion. The reported LVEF is 69 %. Impression: 1. Rest and stress SPECT currently nuclear imaging demonstrate myocardial perfusion changes appearing compatible defects of physiologic apical thinning with no myocardial perfusion changes considered diagnostic for associated stress-induced myocardial ischemia or previous myocardial injury/infarction. 2. The gated Cardiolite study reports an LVEF of 69 %. This note was generated with Letsgofordinneration software. It may contain incorrect words, spelling, and punctuation that were not noted in checking the note before signing.
--- NOTE | 2019-01-06 13:32 | PCM.PN.HOSP ---
Patient Problems: Active and Suspected Problems (Last Reviewed 12/13/18 @ 12:53 by STEPHANY Christiansen) Atrial flutter with rapid ventricular response (Acute) Subjective: Patient is a 68-year-old lady with history of aortic valve replacement with porcine material who presented to the emergency department with chest tightness with associated lightheadedness. EKG obtained in the emergency department demonstrated A. fib flutter with aberrancy. Admitted to a monitored bed for subsequent management Objective: GENERAL: cooperative HEENT: Atraumatic; EYES; Anicteric, Normal Conjunctiva NECK; supple, normal thyroid, RESPIRATORY: Diminished to auscultation CARDIOVASCULAR: Regular S1 S2, GI: soft, non-tender, normoactive bowel sounds, : No Renal angle tenderness; EXTREMITIES: No edema, no clubbing, no cyanosis. MUSCULOSKELETAL: No Joint Tenderness; NEURO: Awake; no lateralizing signs. SKIN: No Rash PSYCH; Normal affect Vitals/I&O's: Vital Signs Temp Pulse Resp BP Pulse Ox 98.3 F 126 H 17 111/51 L 99 01/06/19 08:42 01/06/19 12:56 01/06/19 08:42 01/06/19 08:42 01/06/19 08:42 Oxygen Flow Rate (L/min) 1.5 Oxygen Delivery Method Room Air Weight: 75.296 kg Body Mass Index (BMI) 28.8 Intake and Output for Last 24 Hours 01/04/19 01/05/19 01/06/19 23:59 23:59 23:59 Intake Total 240 / 240 520 / 520 Balance 240 / 240 520 / 520 Laboratory Results 01/05/19 18:56: WBC 7.9, RBC 4.56, Hgb 13.3, Hct 39.9, MCV 87.5, MCH 29.2, MCHC 33.3, RDW 14.4, RDW Differential 46.4 H, Plt Count 179, MPV 10.8, Immature Gran % (Auto) 0.100, Neut % (Auto) 59.4, Lymph % (Auto) 29.3, [place] % (Auto) 8.2, Eos % (Auto) 2.4, Baso % (Auto) 0.6, Absolute Neuts (auto) 4.7, Absolute Lymphs (auto) 2.30, Total Counted Not Reportable 01/05/19 18:56: PT 13.6, INR 1.1, APTT 29.8 01/05/19 18:56: Sodium 143, Potassium 4.1, Chloride 114 H, Carbon Dioxide 21.0, Anion Gap 8, BUN 20 H, Creatinine 1.11 H, Estim Creat Clear Calc 45.86, Est GFR (MDRD) Af Amer 62, Est GFR (MDRD) Non-Af 52 L, BUN/Creatinine Ratio 18.0, Glucose 113 H, Calcium 9.5, Troponin I 0.020 01/05/19 18:56: Magnesium 2.1 01/05/19 21:55: Troponin I 0.023 01/05/19 22:10: POC Glucose 108 01/06/19 00:40: Troponin I 0.018 01/06/19 05:25: Sodium 143, Potassium 4.2, Chloride 113 H, Carbon Dioxide 22.0, Anion Gap 8, BUN 21 H, Creatinine 0.90, Estim Creat Clear Calc 56.56, Est GFR (MDRD) Af Amer 79, Est GFR (MDRD) Non-Af 65, BUN/Creatinine Ratio 23.3 H, Glucose 106, Calcium 8.8, Triglycerides 149, Cholesterol 134, LDL Cholesterol 65, VLDL Cholesterol 30, HDL Cholesterol 39 L, TSH 5.43 H 01/06/19 05:25: WBC 6.5, RBC 4.11 L, Hgb 12.1, Hct 36.9 L, MCV 89.8, MCH 29.4, MCHC 32.8, RDW 14.7 H, RDW Differential 47.6 H, Plt Count 151, MPV 11.3, Immature Gran % (Auto) 0.000, Neut % (Auto) 55.4, Lymph % (Auto) 32.4, [place] % (Auto) 8.5, Eos % (Auto) 3.4, Baso % (Auto) 0.3, Absolute Neuts (auto) 3.6, Absolute Lymphs (auto) 2.09, Total Counted Not Reportable 01/06/19 06:33: POC Glucose 99 01/06/19 11:21: POC Glucose 105 Current Medications Acetaminophen (Tylenol) 650 mg PO Q6H PRN PRN PRN Reason: Non-cardiac pain (mod-severe) Hydrocodone Bitart/Acetaminophen (Almond 5mg-325mg) 1 - 2 tablet PO Q6H PRN PRN PRN Reason: MOD-SEVERE PAIN (4-10/10) Al Hydroxide/Mg Hydroxide (Mylanta Ii) 15 - 30 ml PO Q4H PRN PRN PRN Reason: INDIGESTION Albuterol Sulfate (Ventolin Aerosols) 2.5 mg INHALATION Q2H PRN PRN PRN Reason: dyspnea, wheezing Albuterol/Ipratropium (Duoneb) 3 ml INHALATION Q6HWA.RT [facility] Last Admin: 01/06/19 12:50 Dose: Not Given Cholecalciferol (Vitamin D) 2,000 unit PO DAILY [facility] Last Admin: 01/06/19 09:13 Dose: 2,000 unit Dextrose (D50w Syringe) 0 gm IV X1 PRN; Protocol PRN Reason: Hypoglycemia Dofetilide (Tikosyn) 250 mcg PO Q12 [facility] Enoxaparin Sodium (Lovenox) 80 mg 1 mg/kg (80 mg) SC Q12 [facility] Last Admin: 01/06/19 09:12 Dose: 80 mg Famotidine (Pepcid) 20 mg PO BID [facility] Last Admin: 01/06/19 09:13 Dose: 20 mg Glucagon () 1 mg IM .X1 PRN PRN Reason: Hypoglycemia Hydralazine HCl (Apresoline Iv) 10 mg IV Q4H PRN PRN PRN Reason: SBP > 160 Insulin Human Lispro (Humalog Kwikpen (Bkc)) 0 unit SQ ACHS [facility]; Protocol Last Admin: 01/06/19 11:24 Dose: Not Given Lisinopril (Zestril) 5 mg PO DAILY [facility] Last Admin: 01/06/19 09:13 Dose: 5 mg Melatonin (Melatonin) 3 mg PO QHS PRN PRN PRN Reason: INSOMNIA Metoprolol Tartrate (Lopressor (Beta Mira)) 12.5 mg PO BID [facility] Last Admin: 01/06/19 12:56 Dose: 12.5 mg Morphine Sulfate () 1 - 2 mg IV Q4H PRN PRN PRN Reason: PAIN Nitroglycerin (Nitrostat) 0.4 mg SUBLINGUAL Q5M PRN PRN Reason: CARDIAC/CHEST PAIN Ondansetron HCl (Zofran) 4 mg IV Q8H PRN PRN PRN Reason: NAUSEA/VOMITING Pravastatin Sodium (Pravachol) 40 mg PO QHS [facility] Last Admin: 01/05/19 22:29 Dose: 40 mg Sodium Chloride () 5 - 15 ml IV UD PRN PRN Reason: SALINE FLUSH Medical Necessity - Tobacco Use Smoking Status: Never smoker Tobacco Use: Non-smoker Assessment/Plan All Active Problems (Last Reviewed 12/13/18 @ 12:53 by Re Escalona NP-C) Atrial flutter with rapid ventricular response (Acute) Patient is a 68-year-old lady with history of aortic valve replacement with porcine material who presented to the emergency department with chest tightness with associated lightheadedness. EKG obtained in the emergency department demonstrated A. fib flutter with aberrancy. Admitted to a monitored bed for subsequent management 1. Paroxysmal atrial/flutter fibrillation with RVR and aberrancy. Patient apparently underwent cardioversion in the ED converted to sinus rhythm subsequently admitted to the progressive care unit patient however went back into A. fib Case discussed with Dr. Torres plan is for patient to be started on Tikosyn. As part of patient's management she underwent a nuclear stress test on 01/06/2019 which was negative for stress-induced ischemia. Patient was also started on systemic anticoagulation with Lovenox on admission 2. Mild intermittent asthma: Currently not in exacerbation 3. Essential hypertension-blood pressure controlled, home medications continued with dose adjustment as needed 4. Dyslipidemia: Patient is on pravastatin did continue 5. Diabetes mellitus type 2: Patient oral medications held placed and Accu-Cheks before meals and at bedtime with sliding scale coverage 6. 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 GERD on H2 blockers 8. DVT prophylaxis on Lovenox Active Medications Acetaminophen (Tylenol) 650 mg PO Q6H PRN PRN PRN Reason: Non-cardiac pain (mod-severe) Hydrocodone Bitart/Acetaminophen (Almond 5mg-325mg) 1 - 2 tablet PO Q6H PRN PRN PRN Reason: MOD-SEVERE PAIN (4-10/10) Al Hydroxide/Mg Hydroxide (Mylanta Ii) 15 - 30 ml PO Q4H PRN PRN PRN Reason: INDIGESTION Albuterol Sulfate (Ventolin Aerosols) 2.5 mg INHALATION Q2H PRN PRN PRN Reason: dyspnea, wheezing Albuterol/Ipratropium (Duoneb) 3 ml INHALATION Q6HWA.RT [facility] Last Admin: 01/06/19 12:50 Dose: Not Given Cholecalciferol (Vitamin D) 2,000 unit PO DAILY [facility] Last Admin: 01/06/19 09:13 Dose: 2,000 unit Dextrose (D50w Syringe) 0 gm IV X1 PRN; Protocol PRN Reason: Hypoglycemia Dofetilide (Tikosyn) 250 mcg PO Q12 [facility] Enoxaparin Sodium (Lovenox) 80 mg 1 mg/kg (80 mg) SC Q12 [facility] Last Admin: 01/06/19 09:12 Dose: 80 mg Famotidine (Pepcid) 20 mg PO BID [facility] Last Admin: 01/06/19 09:13 Dose: 20 mg Glucagon () 1 mg IM .X1 PRN PRN Reason: Hypoglycemia Hydralazine HCl (Apresoline Iv) 10 mg IV Q4H PRN PRN PRN Reason: SBP > 160 Insulin Human Lispro (Humalog Kwikpen (Bkc)) 0 unit SQ ACHS [facility]; Protocol Last Admin: 01/06/19 11:24 Dose: Not Given Lisinopril (Zestril) 5 mg PO DAILY [facility] Last Admin: 01/06/19 09:13 Dose: 5 mg Melatonin (Melatonin) 3 mg PO QHS PRN PRN PRN Reason: INSOMNIA Metoprolol Tartrate (Lopressor (Beta Mira)) 12.5 mg PO BID [facility] Last Admin: 01/06/19 12:56 Dose: 12.5 mg Morphine Sulfate () 1 - 2 mg IV Q4H PRN PRN PRN Reason: PAIN Nitroglycerin (Nitrostat) 0.4 mg SUBLINGUAL Q5M PRN PRN Reason: CARDIAC/CHEST PAIN Ondansetron HCl (Zofran) 4 mg IV Q8H PRN PRN PRN Reason: NAUSEA/VOMITING Pravastatin Sodium (Pravachol) 40 mg PO QHS [facility] Last Admin: 01/05/19 22:29 Dose: 40 mg Sodium Chloride () 5 - 15 ml IV UD PRN PRN Reason: SALINE FLUSH Code Visit OBSV E&M: 12569 Subsequent observation care L3
--- NOTE | 2019-01-06 13:37 | PN_ITS ---
Patient Problems: Active and Suspected Problems (Last Reviewed 12/13/18 @ 12:53 by STEPHANY Christiansen) Atrial flutter with rapid ventricular response (Acute) Subjective: Patient is a 68-year-old lady with history of aortic valve replacement with porcine material who presented to the emergency department with chest tightness with associated lightheadedness. EKG obtained in the emergency department demonstrated A. fib flutter with aberrancy. Admitted to a monitored bed for subsequent management Objective: GENERAL: cooperative HEENT: Atraumatic; EYES; Anicteric, Normal Conjunctiva NECK; supple, normal thyroid, RESPIRATORY: Diminished to auscultation CARDIOVASCULAR: Regular S1 S2, GI: soft, non-tender, normoactive bowel sounds, : No Renal angle tenderness; EXTREMITIES: No edema, no clubbing, no cyanosis. MUSCULOSKELETAL: No Joint Tenderness; NEURO: Awake; no lateralizing signs. SKIN: No Rash PSYCH; Normal affect Vitals/I&O's: Vital Signs Temp Pulse Resp BP Pulse Ox 98.3 F 126 H 17 111/51 L 99 01/06/19 08:42 01/06/19 12:56 01/06/19 08:42 01/06/19 08:42 01/06/19 08:42 Oxygen Flow Rate (L/min) 1.5 Oxygen Delivery Method Room Air Weight: 75.296 kg Body Mass Index (BMI) 28.8 Intake and Output for Last 24 Hours 01/04/19 01/05/19 01/06/19 23:59 23:59 23:59 Intake Total 240 / 240 520 / 520 Balance 240 / 240 520 / 520 Laboratory Results 01/05/19 18:56: WBC 7.9, RBC 4.56, Hgb 13.3, Hct 39.9, MCV 87.5, MCH 29.2, MCHC 33.3, RDW 14.4, RDW Differential 46.4 H, Plt Count 179, MPV 10.8, Immature Gran % (Auto) 0.100, Neut % (Auto) 59.4, Lymph % (Auto) 29.3, [place] % (Auto) 8.2, Eos % (Auto) 2.4, Baso % (Auto) 0.6, Absolute Neuts (auto) 4.7, Absolute Lymphs (auto) 2.30, Total Counted Not Reportable 01/05/19 18:56: PT 13.6, INR 1.1, APTT 29.8 01/05/19 18:56: Sodium 143, Potassium 4.1, Chloride 114 H, Carbon Dioxide 21.0, Anion Gap 8, BUN 20 H, Creatinine 1.11 H, Estim Creat Clear Calc 45.86, Est GFR (MDRD) Af Amer 62, Est GFR (MDRD) Non-Af 52 L, BUN/Creatinine Ratio 18.0, Gluco se 113 H, Calcium 9.5, Troponin I 0.020 01/05/19 18:56: Magnesium 2.1 01/05/19 21:55: Troponin I 0.023 01/05/19 22:10: POC Glucose 108 01/06/19 00:40: Troponin I 0.018 01/06/19 05:25: Sodium 143, Potassium 4.2, Chloride 113 H, Carbon Dioxide 22.0, Anion Gap 8, BUN 21 H, Creatinine 0.90, Estim Creat Clear Calc 56.56, Est GFR (MDRD) Af Amer 79, Est GFR (MDRD) Non-Af 65, BUN/Creatinine Ratio 23.3 H, Glucose 106, Calcium 8.8, Triglycerides 149, Cholesterol 134, LDL Cholesterol 65, VLDL Cholesterol 30, HDL Cholesterol 39 L, TSH 5.43 H 01/06/19 05:25: WBC 6.5, RBC 4.11 L, Hgb 12.1, Hct 36.9 L, MCV 89.8, MCH 29.4, MCHC 32.8, RDW 14.7 H, RDW Differential 47.6 H, Plt Count 151, MPV 11.3, Immature Gran % (Auto) 0.000, Neut % (Auto) 55.4, Lymph % (Auto) 32.4, [place] % (Auto) 8.5, Eos % (Auto) 3.4, Baso % (Auto) 0.3, Absolute Neuts (auto) 3.6, Absolute Lymphs (auto) 2.09, Total Counted Not Reportable 01/06/19 06:33: POC Glucose 99 01/06/19 11:21: POC Glucose 105 Current Medications Acetaminophen (Tylenol) 650 mg PO Q6H PRN PRN PRN Reason: Non-cardiac pain (mod-severe) Hydrocodone Bitart/Acetaminophen ([place] 5mg-325mg) 1 - 2 tablet PO Q6H PRN PRN PRN Reason: MOD-SEVERE PAIN (4-10/10) Al Hydroxide/Mg Hydroxide (Mylanta Ii) 15 - 30 ml PO Q4H PRN PRN PRN Reason: INDIGESTION Albuterol Sulfate (Ventolin Aerosols) 2.5 mg INHALATION Q2H PRN PRN PRN Reason: dyspnea, wheezing Albuterol/Ipratropium (Duoneb) 3 ml INHALATION Q6HWA.RT [facility] Last Admin: 01/06/19 12:50 Dose: Not Given Cholecalciferol (Vitamin D) 2,000 unit PO DAILY [facility] Last Admin: 01/06/19 09:13 Dose: 2,000 unit Dextrose (D50w Syringe) 0 gm IV X1 PRN; Protocol PRN Reason: Hypoglycemia Dofetilide (Tikosyn) 250 mcg PO Q12 [facility] Enoxaparin Sodium (Lovenox) 80 mg 1 mg/kg (80 mg) SC Q12 [facility] Last Admin: 01/06/19 09:12 Dose: 80 mg Famotidine (Pepcid) 20 mg PO BID [facility] Last Admin: 01/06/19 09:13 Dose: 20 mg Glucagon () 1 mg IM .X1 PRN PRN Reason: Hypoglycemia Hydralazine HCl (Apresoline Iv) 10 mg IV Q4H PRN PRN PRN Reason: SBP > 160 Insulin Human Lispro (Humalog Kwikpen (Bkc)) 0 unit SQ ACHS [facility]; Protocol Last Admin: 01/06/19 11:24 Dose: Not Given Lisinopril (Zestril) 5 mg PO DAILY [facility] Last Admin: 01/06/19 09:13 Dose: 5 mg Melatonin (Melatonin) 3 mg PO QHS PRN PRN PRN Reason: INSOMNIA Metoprolol Tartrate (Lopressor (Beta Mira)) 12.5 mg PO BID [facility] Last Admin: 01/06/19 12:56 Dose: 12.5 mg Morphine Sulfate () 1 - 2 mg IV Q4H PRN PRN PRN Reason: PAIN Nitroglycerin (Nitrostat) 0.4 mg SUBLINGUAL Q5M PRN PRN Reason: CARDIAC/CHEST PAIN Ondansetron HCl (Zofran) 4 mg IV Q8H PRN PRN PRN Reason: NAUSEA/VOMITING Pravastatin Sodium (Pravachol) 40 mg PO QHS [facility] Last Admin: 01/05/19 22:29 Dose: 40 mg Sodium Chloride () 5 - 15 ml IV UD PRN PRN Reason: SALINE FLUSH Medical Necessity - Tobacco Use Smoking Status: Never smoker Tobacco Use: Non-smoker Assessment/Plan All Active Problems (Last Reviewed 12/13/18 @ 12:53 by ARNAUD ChristiansenC) Atrial flutter with rapid ventricular response (Acute) Patient is a 68-year-old lady with history of aortic valve replacement with porcine material who presented to the emergency department with chest tightness with associated lightheadedness. EKG obtained in the emergency department demonstrated A. fib flutter with aberrancy. Admitted to a monitored bed for subsequent management 1. Paroxysmal atrial/flutter fibrillation with RVR and aberrancy. Patient apparently underwent cardioversion in the ED converted to sinus rhythm subsequently admitted to the progressive care unit patient however went back into A. fib Case discussed with Dr. Torres plan is for patient to be started on Tikosyn. As part of patient's management she underwent a nuclear stress test on 01/06/2019 which was negative for stress-induced ischemia. Patient was also started on systemic anticoagulation with Lovenox on admission 2. Mild intermittent asthma: Currently not in exacerbation 3. Essential hypertension-blood pressure controlled, home medications continued with dose adjustment as needed 4. Dyslipidemia: Patient is on pravastatin did continue 5. Diabetes mellitus type 2: Patient oral medications held placed and Accu- Cheks before meals and at bedtime with sliding scale coverage 6. 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 GERD on H2 blockers 8. DVT prophylaxis on Lovenox Active Medications Acetaminophen (Tylenol) 650 mg PO Q6H PRN PRN PRN Reason: Non-cardiac pain (mod-severe) Hydrocodone Bitart/Acetaminophen ([place] 5mg-325mg) 1 - 2 tablet PO Q6H PRN PRN PRN Reason: MOD-SEVERE PAIN (4-10/10) Al Hydroxide/Mg Hydroxide (Mylanta Ii) 15 - 30 ml PO Q4H PRN PRN PRN Reason: INDIGESTION Albuterol Sulfate (Ventolin Aerosols) 2.5 mg INHALATION Q2H PRN PRN PRN Reason: dyspnea, wheezing Albuterol/Ipratropium (Duoneb) 3 ml INHALATION Q6HWA.RT [facility] Last Admin: 01/06/19 12:50 Dose: Not Given Cholecalciferol (Vitamin D) 2,000 unit PO DAILY [facility] Last Admin: 01/06/19 09:13 Dose: 2,000 unit Dextrose (D50w Syringe) 0 gm IV X1 PRN; Protocol PRN Reason: Hypoglycemia Dofetilide (Tikosyn) 250 mcg PO Q12 [facility] Enoxaparin Sodium (Lovenox) 80 mg 1 mg/kg (80 mg) SC Q12 [facility] Last Admin: 01/06/19 09:12 Dose: 80 mg Famotidine (Pepcid) 20 mg PO BID [facility] Last Admin: 01/06/19 09:13 Dose: 20 mg Glucagon () 1 mg IM .X1 PRN PRN Reason: Hypoglycemia Hydralazine HCl (Apresoline Iv) 10 mg IV Q4H PRN PRN PRN Reason: SBP > 160 Insulin Human Lispro (Humalog Kwikpen (Bkc)) 0 unit SQ ACHS [facility]; Protocol Last Admin: 01/06/19 11:24 Dose: Not Given Lisinopril (Zestril) 5 mg PO DAILY [facility] Last Admin: 01/06/19 09:13 Dose: 5 mg Melatonin (Melatonin) 3 mg PO QHS PRN PRN PRN Reason: INSOMNIA Metoprolol Tartrate (Lopressor (Beta Mira)) 12.5 mg PO BID [facility] Last Admin: 01/06/19 12:56 Dose: 12.5 mg Morphine Sulfate () 1 - 2 mg IV Q4H PRN PRN PRN Reason: PAIN Nitroglycerin (Nitrostat) 0.4 mg SUBLINGUAL Q5M PRN PRN Reason: CARDIAC/CHEST PAIN Ondansetron HCl (Zofran) 4 mg IV Q8H PRN PRN PRN Reason: NAUSEA/VOMITING Pravastatin Sodium (Pravachol) 40 mg PO QHS [facility] Last Admin: 01/05/19 22:29 Dose: 40 mg Sodium Chloride () 5 - 15 ml IV UD PRN PRN Reason: SALINE FLUSH Code Visit OBSV E&M: 31956 Subsequent observation care L3
[2019-01-06] MEDS: Dofetilide 250 MCG Capsule PO ×2 (14:16→22:57)
[2019-01-06 17:11] LABS: Bedside Glucose 165 mg/dL (70-110)
--- NOTE | 2019-01-06 17:20 | EKG12_ITS ---
Test Reason : RHYTHM Blood Pressure : / mmHG Vent. Rate : 125 BPM Atrial Rate : 122 BPM P-R Int : 000 ms QRS Dur : 152 ms QT Int : 368 ms P-R-T Axes : 000 -17 157 degrees QTc Int : 531 ms Atrial fibrillation with rapid ventricular response Left bundle branch block Abnormal ECG When compared with ECG of 05-JAN-2019 20:55, MANUAL COMPARISON REQUIRED, DATA IS UNCONFIRMED Confirmed by ODETTE RASCON, BENTLEY ([id number]), multimedia editor MAGALY STAHL ([id number] on 01/07/2019 8:10:47 AM Referred By: Marlen Woodson Confirmed By:BENTLEY PINO MD
[2019-01-06] MEDS: Insulin Lispro 100 UNIT/ML INSULN.PEN SQ (17:44)
[2019-01-06] MEDS: Pravastatin 40 MG Tablet PO (21:07)
[2019-01-06 23:00] LABS: Bedside Glucose 111 mg/dL (70-110)
[2019-01-07] VITALS (20 sets, daily range): BP systolic 105–128; BP diastolic 56–80; PULSE 45–80; RESP 16–20; TEMP 36.6–36.9; O2SAT 94–97
--- NOTE | 2019-01-07 02:00 | EKG12_ITS ---
Test Reason : TIKOSIN Blood Pressure : / mmHG Vent. Rate : 051 BPM Atrial Rate : 051 BPM P-R Int : 190 ms QRS Dur : 160 ms QT Int : 570 ms P-R-T Axes : 074 -30 071 degrees QTc Int : 525 ms Sinus bradycardia with Premature atrial complexes Left axis deviation Left bundle branch block Abnormal ECG When compared with ECG of 06-JAN-2019 17:19, MANUAL COMPARISON REQUIRED, DATA IS UNCONFIRMED Confirmed by ODETTE RASCON, BENTLEY ([id number]), desk editor MAGALY STAHL ([id number]) on 01/07/2019 8:08:36 AM Referred By: Marlen Woodson Confirmed By:BENTLEY PINO MD
[2019-01-07 06:03] LABS: Anion Gap 9 (5-15); BUN 22 mg/dL (7-18); BUN/Creat Ratio 21.4 RATIO (10-20); Chloride 112 mmol/L (98-107); Creatinine, Serum 1.03 mg/dL (0.55-1.02); EST Glomerular Filtration Rate 56 mL/min (>60); Est Glom Filt Rate - Afr Amer 68 mL/min (>60); Estimated Creatinine Clearance 49.42 ml/min; Glucose 105 mg/dL (74-106); Potassium 4.3 mmol/L (3.5-5.1); Sodium Level 144 mmol/L (136-145)
[2019-01-07 06:55] LABS: Bedside Glucose 107 mg/dL (70-110)
[2019-01-07] MEDS: Ipratropium/Albuterol Sulfate 3 ML AMPUL.NEB INHALATION ×2 (07:33→20:25)
--- NOTE | 2019-01-07 08:23 | CDU_ITS ---
Reason For Study: BRUIT Rt. Velocities/BP Lt. Velocities/BP Prox CCA 114/14 cm/sec. Prox CCA 138/36 cm/sec. Mid CCA 87/23 cm/sec. Mid CCA 85/30 cm/sec. Dist CCA 71/21 cm/sec. Dist CCA 83/23 cm/sec. Prox ICA 82/19 cm/sec. Prox ICA 85/27 cm/sec. Mid ICA 67/21 cm/sec. Mid ICA 113/58 cm/sec. Dist ICA 44/16 cm/sec. Dist ICA 118/45 cm/sec. Rt. ICA/CCA = .7. Lt. ICA/CCA = .9. Prox ECA 76/18 cm/sec. Prox ECA 100/18 cm/sec. Rt. Vert. 58/16 cm/sec. Lt. Vert. 54/16 cm/sec. Right Extracranial There is intimal thickening but no significant atherosclerotic plaque noted in the right common carotid artery. There is heterogeneous, irregular atherosclerotic plaque noted in the right internal carotid artery. There is no significant atherosclerotic plaque noted in the right external carotid artery. Antegrade flow is noted in the right vertebral artery. Left Extracranial There is intimal thickening but no significant atherosclerotic plaque noted in the left common carotid artery. There is heterogeneous, irregular atherosclerotic plaque noted in the left internal carotid artery. There is homogeneous, smooth atherosclerotic plaque noted in the left external carotid artery. Antegrade flow is noted in the left vertebral artery. Procedure Carotid Duplex [id number]. Exam performed portable in patient room. Interpretation Summary Minimal plague at the proximal right internal carotid with <50% stenosis. <50% stenosis right external carotid Minimal calcific plague at the proximal left internal carotid with <50% stenosis. <50% stenosis left external carotid Patent and antegrade vertebrals bilaterally Ordering Physician: Ori Torres Referring Physician: JALEN BRADLEY Performed By: Meredith Nelson, RDCS, RVT
--- NOTE | 2019-01-07 08:23 | PN.CARD_ITS ---
Subjectve: The patient states she is feeling better overall. She notes her symptoms occur when she enters atrial flutter especially with a rapid ventricular response. Objective: Vital Signs Temp Pulse Resp BP Pulse Ox 97.9 F 59 L 20 H 123/80 H 95 01/07/19 08:10 01/07/19 08:10 01/07/19 08:10 01/07/19 08:10 01/07/19 08:10 Oxygen Flow Rate (L/min) 1.5 Oxygen Delivery Method Room Air Weight: 166 lb Body Mass Index (BMI) 28.8 Intake and Output for Last 24 Hours 01/05/19 01/06/19 01/07/19 23:59 23:59 23:59 Intake Total 240 / 240 1240 / 1240 360 / 360 Output Total 200 / 200 Balance 240 / 240 1240 / 1240 160 / 160 General: Awake, Alert, Oriented x 3, Cooperative, No Acute Distress HEENT: Atraumatic, Normocephalic, PERRL, EOMI, Sclera Non Icteric Oral: Moist Mucosa Neck: Supple, Good ROM, No JVD Lungs: Clear to auscultation Cardiovascular: Regular Rhythm, Normal S1, Normal S2 Murmur Murmur: Grade 3/6, Harsh, Mid Systolic, LLSB, LVOT, Sternal Notch Vascular: L Carotid Artery Bruits Abdomen: Bowel Sounds Present, Soft, Non Tender Extremities: No edema Neurological: No Focal Motor or Sensory Deficit Psych/Mental Status: Appropriate 01/07/19 05:20: Sodium 144, Potassium 4.3, Chloride 112 H, Carbon Dioxide 23.0, Anion Gap 9, BUN 22 H, Creatinine 1.03 H, Est GFR (MDRD) Af Amer 68, Est GFR (MDRD) Non-Af 56 L, BUN/Creatinine Ratio 21.4 H, Glucose 105, Calcium 9.0 Rhythm: Sinus rhythm/sinus bradycardia EKG: Sinus bradycardia; left bundle branch block pattern Medical Necessity - Tobacco Use Smoking Status: Never smoker Tobacco Use: Non-smoker Assessment/Plan 1. Atrial flutter with rapid ventricular response The patient appears to have demonstrated evidence of atrial flutter with a rapid ventricular response. This was further identified in the emergency department after IV adenosine demonstrating the underlying atrial flutter activity. The patient has had subsequent spontaneous return to sinus rhythm/sinus bradycardia. The patient does have an underlying IVCD/left bundle branch block pattern. At the present time this may be secondary to combination of factors. This could include the patient's age, history of hypertension, history of cardiovascular disease, history of pulmonary disease, etc. At the moment she is being monitored. Her rhythm remains sinus/sinus bradycardia. She has been treated medically. However it is been challenging with respect to rate limiting medications based on her underlying sinus bradycardia. She was also placed on antiarrhythmic therapy. Consideration was given to avoiding rate limiting agents such as amiodarone and sotalol. Consideration was also given to avoiding agents such as flecainide based upon the potential concern with the patient's underlying atrial flutter that if she did enter atrial flutter without adequate rate limiting medication she could potentially have atrial flutter with one-to-one conduction. Thus consideration was given to attempting medication with Tikosyn as long as she had no concerns with respect to her underlying ECG intervals/QT intervals, etc. However, it has been noticed on Tikosyn therapy that she has begun to prolong her QT intervals above and beyond her baseline status with her underlying IVCD. At the moment she will continue to be monitored. She will continue rate limiting therapy as tolerated. Her antiarrhythmic therapy will be placed on hold. With her permission a telephone curbside consultation will be obtained with electrophysiology with respect to guidance for further evaluation and care of her bradycardia/tachycardia (atrial flutter with RVR) with respect to medical therapy and/or device therapy and/or ablation therapy. She will eventually need consideration for oral systemic anticoagulant therapy once her course is more clearly defined. 2. Aortic valve disease status post aortic valve replacement At the present time she has undergone recent evaluation of her aortic valve by transthoracic echocardiogram as noted above. An attempt will be made to obtain previous medical records to assist in knowledge of her aortic valve disease process. She will need continued future follow-up as an inpatient and outpatient as deemed appropriate to monitor her aortic valve. She also needs continued AHA antibiotic prophylaxis. 3. Hyperlipidemia She will continue medical management. 4. Hypertension She will continue medical therapy with adjustment as needed taking into consideration concerns of any rate limiting factors. 5. Diabetes mellitus She will continue under the care of internal medicine. 6. OPD She will continue under the care of internal medicine and pulmonology as needed. 7. GERD She will continue medical therapy as deemed appropriate. 8. Carotid artery bruit She does have the appearance of a carotid artery bruit. Thus it would be reasonable to obtain a carotid artery duplex study for further evaluation. This note was generated with [employer] dictation software. It may contain incorrect words, spelling, and punctuation that were not noted in checking the note before signing.
--- NOTE | 2019-01-07 09:45 | PCM.PN.HOSP ---
Patient Problems: Active and Suspected Problems (Last Reviewed 12/13/18 @ 12:53 by STEPHANY Christiansen) Atrial flutter with rapid ventricular response (Acute) Subjective: Telemetry monitoring revealed episodes of bradycardia as well as A. fib with aberrancy. Case was discussed with Dr. Torres the day prior to patient undergo pacemaker placement on 01/07/2019 Objective: GENERAL: cooperative HEENT: Atraumatic; EYES; Anicteric, Normal Conjunctiva NECK; supple, normal thyroid, RESPIRATORY: Diminished to auscultation CARDIOVASCULAR: Irregular S1 S2, GI: soft, non-tender, normoactive bowel sounds, : No Renal angle tenderness; EXTREMITIES: No edema, no clubbing, no cyanosis. MUSCULOSKELETAL: No Joint Tenderness; NEURO: Awake; no lateralizing signs. SKIN: No Rash PSYCH; Normal affect Vitals/I&O's: Vital Signs Temp Pulse Resp BP Pulse Ox 97.9 F 59 L 20 H 123/80 H 95 01/07/19 08:10 01/07/19 08:10 01/07/19 08:10 01/07/19 08:10 01/07/19 08:10 Oxygen Flow Rate (L/min) 1.5 Oxygen Delivery Method Room Air Weight: 75.296 kg Body Mass Index (BMI) 28.8 Intake and Output for Last 24 Hours 01/05/19 01/06/19 01/07/19 23:59 23:59 23:59 Intake Total 240 / 240 1240 / 1240 360 / 360 Output Total 200 / 200 Balance 240 / 240 1240 / 1240 160 / 160 Laboratory Results 01/06/19 11:21: POC Glucose 105 01/06/19 16:56: POC Glucose 165 H 01/06/19 21:02: POC Glucose 111 H 01/07/19 05:20: Sodium 144, Potassium 4.3, Chloride 112 H, Carbon Dioxide 23.0, Anion Gap 9, BUN 22 H, Creatinine 1.03 H, Estim Creat Clear Calc 49.42, Est GFR (MDRD) Af Amer 68, Est GFR (MDRD) Non-Af 56 L, BUN/Creatinine Ratio 21.4 H, Glucose 105, Calcium 9.0 01/07/19 06:42: POC Glucose 107 Current Medications Acetaminophen (Tylenol) 650 mg PO Q6H PRN PRN PRN Reason: Non-cardiac pain (mod-severe) Hydrocodone Bitart/Acetaminophen ([place] 5mg-325mg) 1 - 2 tablet PO Q6H PRN PRN PRN Reason: MOD-SEVERE PAIN (4-10/10) Al Hydroxide/Mg Hydroxide (Mylanta Ii) 15 - 30 ml PO Q4H PRN PRN PRN Reason: INDIGESTION Albuterol Sulfate (Ventolin Aerosols) 2.5 mg INHALATION Q2H PRN PRN PRN Reason: dyspnea, wheezing Albuterol/Ipratropium (Duoneb) 3 ml INHALATION Q6HWA.RT [facility] Last Admin: 01/07/19 07:33 Dose: 3 ml Cholecalciferol (Vitamin D) 2,000 unit PO DAILY [facility] Last Admin: 01/06/19 09:13 Dose: 2,000 unit Dextrose (D50w Syringe) 0 gm IV X1 PRN; Protocol PRN Reason: Hypoglycemia Famotidine (Pepcid) 20 mg PO BID [facility] Last Admin: 01/06/19 21:07 Dose: 20 mg Glucagon () 1 mg IM .X1 PRN PRN Reason: Hypoglycemia Hydralazine HCl (Apresoline Iv) 10 mg IV Q4H PRN PRN PRN Reason: SBP > 160 Sodium Chloride () 1,000 mls @ 100 mls/hr IV .Q10H [facility] Insulin Human Lispro (Humalog Kwikpen (Bkc)) 0 unit SQ ACHS [facility]; Protocol Last Admin: 01/07/19 06:44 Dose: Not Given Lisinopril (Zestril) 5 mg PO DAILY [facility] Last Admin: 01/06/19 09:13 Dose: 5 mg Melatonin (Melatonin) 3 mg PO QHS PRN PRN PRN Reason: INSOMNIA Metoprolol Tartrate (Lopressor (Beta Mira)) 12.5 mg PO BID [facility] Last Admin: 01/06/19 21:07 Dose: 12.5 mg Morphine Sulfate () 1 - 2 mg IV Q4H PRN PRN PRN Reason: PAIN Nitroglycerin (Nitrostat) 0.4 mg SUBLINGUAL Q5M PRN PRN Reason: CARDIAC/CHEST PAIN Ondansetron HCl (Zofran) 4 mg IV Q8H PRN PRN PRN Reason: NAUSEA/VOMITING Pravastatin Sodium (Pravachol) 40 mg PO QHS [facility] Last Admin: 01/06/19 21:07 Dose: 40 mg Sodium Chloride () 5 - 15 ml IV UD PRN PRN Reason: SALINE FLUSH Medical Necessity - Tobacco Use Smoking Status: Never smoker Tobacco Use: Non-smoker Assessment/Plan All Active Problems (Last Reviewed 12/13/18 @ 12:53 by STEPHANY Christiansen) Atrial flutter with rapid ventricular response (Acute) Patient is a 68-year-old lady with history of aortic valve replacement with porcine material who presented to the emergency department with chest tightness with associated lightheadedness. EKG obtained in the emergency department demonstrated A. fib flutter with aberrancy. Admitted to a monitored bed for subsequent management 1. Paroxysmal atrial/flutter fibrillation with RVR and aberrancy. Patient apparently underwent cardioversion in the ED converted to sinus rhythm subsequently admitted to the progressive care unit patient however went back into A. fib Case discussed with Dr. Torres plan is for patient to be started on Tikosyn. As part of patient's management she underwent a nuclear stress test on 01/06/2019 which was negative for stress-induced ischemia. Patient was also started on systemic anticoagulation with Lovenox on admission ~01/07/2019;Telemetry monitoring revealed episodes of bradycardia as well as A. fib with aberrancy. Case was discussed with Dr. Torres the day prior to patient undergo pacemaker placement on 01/07/2019 2. Mild intermittent asthma: Currently not in exacerbation 3. Essential hypertension-blood pressure controlled, home medications continued with dose adjustment as needed 4. Dyslipidemia: Patient is on pravastatin did continue 5. Diabetes mellitus type 2: Patient oral medications held placed and Accu-Cheks before meals and at bedtime with sliding scale coverage 6. 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 GERD on H2 blockers 8. DVT prophylaxis on Lovenox Clinical Impression(s) from Imaging Studies Chest X-Ray 01/05/19 18:47 IMPRESSION: No acute chest disease. Electronically Signed: Darius Dukes MD at 19:03 EDT , Service support , Active Medications Acetaminophen (Tylenol) 650 mg PO Q6H PRN PRN PRN Reason: Non-cardiac pain (mod-severe) Hydrocodone Bitart/Acetaminophen ([place] 5mg-325mg) 1 - 2 tablet PO Q6H PRN PRN PRN Reason: MOD-SEVERE PAIN (4-10/10) Al Hydroxide/Mg Hydroxide (Mylanta Ii) 15 - 30 ml PO Q4H PRN PRN PRN Reason: INDIGESTION Albuterol Sulfate (Ventolin Aerosols) 2.5 mg INHALATION Q2H PRN PRN PRN Reason: dyspnea, wheezing Albuterol/Ipratropium (Duoneb) 3 ml INHALATION Q6HWA.RT [facility] Last Admin: 01/07/19 07:33 Dose: 3 ml Cholecalciferol (Vitamin D) 2,000 unit PO DAILY [facility] Last Admin: 01/06/19 09:13 Dose: 2,000 unit Dextrose (D50w Syringe) 0 gm IV X1 PRN; Protocol PRN Reason: Hypoglycemia Famotidine (Pepcid) 20 mg PO BID [facility] Last Admin: 01/06/19 21:07 Dose: 20 mg Glucagon () 1 mg IM .X1 PRN PRN Reason: Hypoglycemia Hydralazine HCl (Apresoline Iv) 10 mg IV Q4H PRN PRN PRN Reason: SBP > 160 Sodium Chloride () 1,000 mls @ 100 mls/hr IV .Q10H [facility] Insulin Human Lispro (Humalog Kwikpen (Bkc)) 0 unit SQ ACHS [facility]; Protocol Last Admin: 01/07/19 06:44 Dose: Not Given Lisinopril (Zestril) 5 mg PO DAILY [facility] Last Admin: 01/06/19 09:13 Dose: 5 mg Melatonin (Melatonin) 3 mg PO QHS PRN PRN PRN Reason: INSOMNIA Metoprolol Tartrate (Lopressor (Beta Mira)) 12.5 mg PO BID [facility] Last Admin: 01/06/19 21:07 Dose: 12.5 mg Morphine Sulfate () 1 - 2 mg IV Q4H PRN PRN PRN Reason: PAIN Nitroglycerin (Nitrostat) 0.4 mg SUBLINGUAL Q5M PRN PRN Reason: CARDIAC/CHEST PAIN Ondansetron HCl (Zofran) 4 mg IV Q8H PRN PRN PRN Reason: NAUSEA/VOMITING Pravastatin Sodium (Pravachol) 40 mg PO QHS [facility] Last Admin: 01/06/19 21:07 Dose: 40 mg Sodium Chloride () 5 - 15 ml IV UD PRN PRN Reason: SALINE FLUSH Code Visit Inpatient E&M: 82843 Subs Hosp L2
--- NOTE | 2019-01-07 09:49 | CASEMGMT ---
REYNOLD ASCENCIO assessment: Face to Face with patient for initial transition planning/care coordination assessment. REYNOLD ASCENCIO introduced self and role at [facility], pt voices understanding and consents to assessment at this time. Pt is sitting up in bed in no distress at this time. Pt is A/Ox4 at this time and answers all questions appropriately at this time. Care providers, pharmacy, and demographics verified at this time. PCP: Zheng but pt states she would like to switch to a PCP that is affiliated with [facility]. Pt provided with contact info for Dr. Nuñez and Dr. Harrell at this time. Specialists: shiv Sanchez Preferred Pharmacy: [facility] Insurance: [employer] Prescription Benefit: [employer] Living Will/HPOA: Pt is unsure if she has LW/HPOA but would like to complete at this time. Mehran PATINO aware, voices understanding. LNOK: Luiza Bateman, daughter Living Arrangements: Pt states that her 8wks ago and she now lives alone in 1 story apt and states no concerns at home at this time. Pt states that she has been staying with her daughter about 1 day a week since her and plans to stay with her upon discharge from the hospital. Pt states that her daughter does have a flight of stairs into apt but pt states no concerns with this at this time. Pt states is independent with ADL's. Transportation: Pt states drives self and states no transportation concerns at this time. DME/HHC: Pt states has a cane, grab bars, and shower chair and states no need for any further DME at this time. Pt states no hx of HHC or SNF in the past. Pt states no concerns with going home at time of discharge. Pt is retired. Pt states does not smoke or drink ETOH. Pt does ask if SW would also be able to fill out the DANNIE jonny that was provided previously. Sharad PATINO aware at this time as well as regarding pt's recent loss of , voices understanding. Pt states that daughter will arrive to see her prior to procedure for pacer. Pt voices no further questions/concerns/needs at this time. CM to follow for any further discharge planning/needs. Advised pt to ask for CM if any further questions/concerns/needs arise, voices understanding. Pt Goal: Home Plan: [place] REYNOLD ASCENCIO
[2019-01-07] MEDS: Famotidine 20 MG Tablet PO ×2 (11:11→22:38)
[2019-01-07] MEDS: Lisinopril 5 MG Tablet PO (11:12)
[2019-01-07] MEDS: 0.9% Normal Saline 1,000 ML 100 ML IV ×2 (11:13→22:15)
[2019-01-07] MEDS: Metoprolol Tartrate 25 MG Tablet 12.5 MG PO (11:14)
[2019-01-07] MEDS: 0.9% NaCl Peripheral Flush Adult/Peds IV (11:17)
--- NOTE | 2019-01-07 11:29 | CASEMGMT ---
SW met w/pt briefly in regard to LW/POA. Pt does not want to complete LW/POA at this time, would like daughter to be here. She also would like assist in completing the Medicaid application. SW let pt know will have SW on Thursday come see her as time allows in regard to this--as pt is about to leave the floor to get a pacemaker. SW will continue to follow. HARPREET Mitchell
[2019-01-07 12:15] LABS: Bedside Glucose 94 mg/dL (70-110)
[2019-01-07 13:47] LABS: M R Staph aureus DNA By PCR Negative (Negative); Probe Check PASS; Specimen Processing Control PASS
--- NOTE | 2019-01-07 14:26 | CL.IE_ITS ---
Patient: MCKENNA STEPHENS Study Date: 01/07/2019 Performing: Rubio Blanc MD : 1950 Age: 68 Gender: female PROCEDURES PERFORMED [id number] PACER INSERT+DUAL LEADS INDICATIONS Sinoatrial node dysfunction/Sick sinus syndrome PROCEDURE DETAILS The patient was brought to the Catheterization Lab in the postabsorptive nonsedated state. Infor med consent was obtained prior to the procedure. Local anesthetic was given subcutaneously to the le ft upper chest area with Lidocaine 2%. Incision was made to the left upper chest. Access was achieved and a guidewire was advanced into the left subclavian vein. PPM ventricular lead was inserted / posi tioned to right ventricular septal wall. PPM ventricular lead testing performed. PPM ventricular lead testing performed. PPM atrial lead was inserted / positioned to the right atrial appendage. PPM atri al lead testing performed. The Ventricular PM lead sutured in place with 3-0 Silk. The Atrial lead harris tured in place with 3-0 Silk. Device pocket was irrigated with antibiotic. PPM generator was attached to the lead(s) and inserted into the pocket. PPM generator was then interrogated by the mainframe systems programmer. Subcutaneous closure was completed with 3-0 Vicryl. Skin closure was completed with 4-0 Vicryl. Steri-strips applied to left subclavicular incision. The patient tolerated the procedure wel l. Estimated Blood Loss: < 10 mls IMPLANTED / EX-PLANTED DEVICES IMPLANTED DEVICE(S): PPM Ventricular lead - Apartment House Manager: [employer], Model # 7742 , Serial # [id number] PPM Atrial lead - Apartment House Manager: [employer], Model # 7741 , Serial # [id number] PPM Generator - Apartment House Manager: [employer], Model # [employer] MRI L111 , Serial # [id number] DEVICE PARAMETERS ATRIAL LEAD PARAMETERS: Current- 1.8 (mA) threshold- 1.4 (V) impedence- 686 (OHMS) VENTRICULAR LEAD PARAMETERS: Current- 0.9 (mA) threshold- 0.7 (V) impedence- 834 (OHMS) DEVICE PARAMETERS: Mode- DDD Lower rate- 60 Upper rate- 130 CONCLUSIONS / RECOMMENDATIONS Device Conclusions: Successful implantation of a dual chamber pacemaker battery change and replacemen t Device Recommendations: Follow up with Primary Care Physician PROCEDURE MEDICATIONS Versed 1 mg IV Fentanyl 25 mcg IV Oxygen: 2 L/min via nasal cannula Antibiotic given in appropriate timeframe. Signed By Rubio Blanc MD On 01/07/2019 14:26:29 Rubio Blanc MD
--- NOTE | 2019-01-07 15:13 | CASEMGMT ---
Pt back from getting pacemaker, daughter here. Daughter able to assist in completing Medicaid application. SW and daughter completed Medicaid jonny and SW faxed to S. SW gave jonny to the daughter. SW also spoke w/daughter and pt about POA/LW, pt not up for completing but did say she wants daughter as POA. Initial information completed and forms given to daughter with number for SW dept to follow up after discharge to complete. SW explained if SW here tomorrow is able she will come in to assist w/completing the forms but if not pt can set up an appointment after discharge. Daughter states understanding. Daughter also states pt is involved with the bereavement program at [facility] in regard to the recent loss of her . SW to follow up if time allows tomorrow for POA/LW, however if not daughter and pt have number to call to set up appt to complete after discharge. HARPREET Mitchell
[2019-01-07] MEDS: Acetaminophen 325 MG Tablet 650 MG PO (15:33)
[2019-01-07 16:46] LABS: Bedside Glucose 90 mg/dL (70-110)
[2019-01-07] MEDS: HYDROcodone Bitartrate/Apap 5/325 Tablet PO (20:31)
[2019-01-07] MEDS: Pravastatin 40 MG Tablet PO (22:38)
[2019-01-07 23:06] LABS: Bedside Glucose 120 mg/dL (70-110)
[2019-01-08] VITALS (10 sets, daily range): BP systolic 111–128; BP diastolic 69–73; PULSE 56–103; RESP 16; TEMP 36.6–36.7; O2SAT 97–98
--- NOTE | 2019-01-08 05:55 | RAD_ITS ---
STUDY: X-RAY CHEST REASON FOR EXAM: Female, 69 years old. Status post pacemaker placement. TECHNIQUE: PA and lateral views of the chest. COMPARISON: January 05, 2019. FINDINGS: Patient has a left-sided intracardiac pacemaker. Cardiac monitoring leads are present. Patient has had a sternotomy. There is mild elevation and eventration of the left hemidiaphragm. There may be some eventration of the right hemidiaphragm. The right lung appears to be hyperexpanded. Bronchovascular markings are prominent in both lungs. There are small bilateral pleural effusions. There is borderline cardiomegaly. Normal mediastinum and rosalinda. Normal visualized pulmonary arteries. There is atherosclerotic calcification of the aortic arch with tortuosity. There is demineralization of the osseous structures. Normal visualized ribs, clavicles, and shoulders. There is no demonstrated abnormality of the visualized soft tissue structures of the upper abdomen. RAD/Chest PA and Lateral IMPRESSION: Mild pulmonary congestion and small pleural effusions. Electronically Signed: Sulema Meraz MD at 9:41 EDT , Service support ,
--- NOTE | 2019-01-08 05:55 | EKG12_ITS ---
Test Reason : Blood Pressure : / mmHG Vent. Rate : 060 BPM Atrial Rate : 060 BPM P-R Int : 264 ms QRS Dur : 160 ms QT Int : 482 ms P-R-T Axes : 044 -20 098 degrees QTc Int : 482 ms Atrial-paced rhythm with prolonged AV conduction Left bundle branch block Abnormal ECG Confirmed by REZA RASCON, KATINA ([id number]), assignment editor EVELYNE ENGEL ([id number]) on 01/12/2019 12:10:55 PM Referred By: Marlen Woodson Confirmed By:KATINA COBB MD
[2019-01-08] MEDS: Ipratropium/Albuterol Sulfate 3 ML AMPUL.NEB INHALATION (06:55)
[2019-01-08] MEDS: 0.9% NaCl Peripheral Flush Adult/Peds IV (07:01)
[2019-01-08 07:05] LABS: Bedside Glucose 84 mg/dL (70-110)
[2019-01-08 07:32] LABS: Hematocrit 38.1 % (37-47); Hemoglobin 10.1 g/dl (12.0-15.0)
[2019-01-08 07:57] LABS: Anion Gap 8 (5-15); BUN 20 mg/dL (7-18); BUN/Creat Ratio 22.2 RATIO (10-20); Chloride 114 mmol/L (98-107); EST Glomerular Filtration Rate 65 mL/min (>60); Est Glom Filt Rate - Afr Amer 79 mL/min (>60); Estimated Creatinine Clearance 55.75 ml/min; Glucose 84 mg/dL (74-106); Potassium 4.3 mmol/L (3.5-5.1); Sodium Level 145 mmol/L (136-145)
[2019-01-08] MEDS: Acetaminophen 325 MG Tablet 650 MG PO ×2 (08:03→20:00)
[2019-01-08] MEDS: 0.9% Normal Saline 1,000 ML 100 ML IV (08:04)
[2019-01-08] MEDS: Lisinopril 5 MG Tablet PO (09:16)
[2019-01-08] MEDS: Famotidine 20 MG Tablet PO ×2 (09:16→21:23)
[2019-01-08] MEDS: Sotalol Hydrochloride 80 MG Tablet PO ×2 (09:17→21:23)
--- NOTE | 2019-01-08 09:34 | PCM.PN.CARD ---
Subjectve: Patient seen and evaluated. Appears to be doing well. No complaints Objective: Vital Signs Temp Pulse Resp BP Pulse Ox 98.1 F 69 16 118/69 97 01/08/19 09:05 01/08/19 09:05 01/08/19 09:05 01/08/19 09:05 01/08/19 09:05 Oxygen Flow Rate (L/min) 1.5 Oxygen Delivery Method Room Air Weight: 166 lb Body Mass Index (BMI) 28.8 Intake and Output for Last 24 Hours 01/06/19 01/07/19 01/08/19 23:59 23:59 23:59 Intake Total 1240 / 1240 2028 / 2028 602 / 602 Output Total 1250 / 1250 Balance 1240 / 1240 778 / 778 602 / 602 General: Awake, Alert, Oriented x 3 HEENT: PERRL, EOMI, Sclera Non Icteric Neck: Supple, Good ROM, No Lymph Node Enlargement Chest Wall: - - Left pacer site no hematoma Lungs: Clear to auscultation Cardiovascular: Regular Rhythm, Normal S1, Normal S2, No Murmurs, No Rubs, No Gallops Vascular: No Carotid Bruits, Normal Femoral Pulses, Normal Radial Pulses, Normal Dorsalis Pedal Pulse, Normal Posterior Tibial Pulses Abdomen: Bowel Sounds Present, Soft, Non Tender, No HSM, No Organomegaly Extremities: No Cyanosis, No Clubbing, No edema Musculoskeletal: No Erythema Skin: No Rashes Lymphatic: No Lymph Node Enlargement Neurological: No Focal Motor or Sensory Deficit Psych/Mental Status: Appropriate 01/08/19 05:43: Hgb 10.1 L, Hct 38.1 01/08/19 05:43: Sodium 145, Potassium 4.3, Chloride 114 H, Carbon Dioxide 23.0, Anion Gap 8, BUN 20 H, Creatinine 0.90, Est GFR (MDRD) Af Amer 79, Est GFR (MDRD) Non-Af 65, BUN/Creatinine Ratio 22.2 H, Glucose 84, Calcium 9.0 Rhythm: EKG: ECHO: Stress Test: Cardiac Cath: PCI: CT Surgery: Holter monitor: EPS: PPM: CXR: Chest CT Scan: Medical Necessity - Tobacco Use Smoking Status: Never smoker Tobacco Use: Non-smoker Assessment/Plan 1. Atrial flutter with rapid ventricular response The patient appears to have demonstrated evidence of atrial flutter with a rapid ventricular response. This was further identified in the emergency department after IV adenosine demonstrating the underlying atrial flutter activity. The patient has had subsequent spontaneous return to sinus rhythm/sinus bradycardia. The patient does have an underlying IVCD/left bundle branch block pattern. It appeared that patient had a tachybradycardia syndrome and after discussion with the primary blocker and polisher gold wheel and fixed assets accountant was decided to proceed with a dual-chamber permanent pacemaker implantation which was implanted successfully yesterday. Chest x-ray demonstrates no abnormalities and pacer check this morning was good. Decision by primary blocker and polisher gold wheel to start patient on sotalol. This would necessitate at least 5 doses and therefore patient would need to stay in-house until Thursday morning. Patient has expressed understanding. 2. Aortic valve disease status post aortic valve replacement At the present time she has undergone recent evaluation of her aortic valve by transthoracic echocardiogram as noted above. An attempt will be made to obtain previous medical records to assist in knowledge of her aortic valve disease process. She will need continued future follow-up as an inpatient and outpatient as deemed appropriate to monitor her aortic valve. She also needs continued AHA antibiotic prophylaxis. 3. Hyperlipidemia She will continue medical management. Thank you for allowing me to participate in the care of your patient. Please don't hesitate to call if any issues arise
--- NOTE | 2019-01-08 09:35 | PCM.PN.HOSP ---
Patient Problems: Active and Suspected Problems (Last Updated 01/07/19 @ 15:20 by Nicky Torres) Atrial flutter with rapid ventricular response (Acute) Subjective: Patient underwent pacemaker placement on 01/07/2019. Case discussed with Dr. pennington with cardiology plan is for patient to be initiated on sotalol necessitating patient being kept in the hospital for 48 hours Objective: GENERAL: cooperative HEENT: Atraumatic; EYES; Anicteric, Normal Conjunctiva NECK; supple, normal thyroid, RESPIRATORY: Diminished to auscultation CARDIOVASCULAR: Irregular S1 S2, GI: soft, non-tender, normoactive bowel sounds, : No Renal angle tenderness; EXTREMITIES: Left upper extremity in a sling MUSCULOSKELETAL: No Joint Tenderness; NEURO: Awake; no lateralizing signs. SKIN: No Rash PSYCH; Normal affect Vitals/I&O's: Vital Signs Temp Pulse Resp BP Pulse Ox 98.1 F 69 16 118/69 97 01/08/19 09:05 01/08/19 09:05 01/08/19 09:05 01/08/19 09:05 01/08/19 09:05 Oxygen Flow Rate (L/min) 1.5 Oxygen Delivery Method Room Air Weight: 75.296 kg Body Mass Index (BMI) 28.8 Intake and Output for Last 24 Hours 01/06/19 01/07/19 01/08/19 23:59 23:59 23:59 Intake Total 1240 / 1240 2027 / 2027 602 / 602 Output Total 1250 / 1250 Balance 1240 / 1240 778 / 778 602 / 602 Laboratory Results 01/07/19 11:30: MRSA (PCR) Negative 01/07/19 12:05: POC Glucose 94 01/07/19 16:34: POC Glucose 90 01/07/19 22:37: POC Glucose 120 H 01/08/19 05:43: Hgb 10.1 L, Hct 38.1 01/08/19 05:43: Sodium 145, Potassium 4.3, Chloride 114 H, Carbon Dioxide 23.0, Anion Gap 8, BUN 20 H, Creatinine 0.90, Estim Creat Clear Calc 55.75, Est GFR (MDRD) Af Amer 79, Est GFR (MDRD) Non-Af 65, BUN/Creatinine Ratio 22.2 H, Glucose 84, Calcium 9.0 01/08/19 07:01: POC Glucose 84 Current Medications Acetaminophen (Tylenol) 650 mg PO Q6H PRN PRN PRN Reason: Non-cardiac pain (mod-severe) Last Admin: 01/08/19 08:03 Dose: 650 mg Hydrocodone Bitart/Acetaminophen ([place] 5mg-325mg) 1 - 2 tablet PO Q6H PRN PRN PRN Reason: MOD-SEVERE PAIN (4-10/10) Last Admin: 01/07/19 20:31 Dose: 1 tablet Al Hydroxide/Mg Hydroxide (Mylanta Ii) 15 - 30 ml PO Q4H PRN PRN PRN Reason: INDIGESTION Albuterol Sulfate (Ventolin Aerosols) 2.5 mg INHALATION Q2H PRN PRN PRN Reason: dyspnea, wheezing Albuterol/Ipratropium (Duoneb) 3 ml INHALATION Q6HWA.RT [facility] Last Admin: 01/08/19 06:55 Dose: 3 ml Cholecalciferol (Vitamin D) 2,000 unit PO DAILY [facility] Last Admin: 01/08/19 09:16 Dose: 2,000 unit Dextrose (D50w Syringe) 0 gm IV X1 PRN; Protocol PRN Reason: Hypoglycemia Famotidine (Pepcid) 20 mg PO BID [facility] Last Admin: 01/08/19 09:16 Dose: 20 mg Glucagon () 1 mg IM .X1 PRN PRN Reason: Hypoglycemia Hydralazine HCl (Apresoline Iv) 10 mg IV Q4H PRN PRN PRN Reason: SBP > 160 Sodium Chloride () 1,000 mls @ 100 mls/hr IV .Q10H [facility] Last Admin: 01/08/19 08:04 Dose: 100 mls/hr Insulin Human Lispro (Humalog Kwikpen (Bkc)) 0 unit SQ ACHS [facility]; Protocol Last Admin: 01/08/19 07:01 Dose: Not Given Lisinopril (Zestril) 5 mg PO DAILY [facility] Last Admin: 01/08/19 09:16 Dose: 5 mg Melatonin (Melatonin) 3 mg PO QHS PRN PRN PRN Reason: INSOMNIA Morphine Sulfate () 1 - 2 mg IV Q4H PRN PRN PRN Reason: PAIN Nitroglycerin (Nitrostat) 0.4 mg SUBLINGUAL Q5M PRN PRN Reason: CARDIAC/CHEST PAIN Ondansetron HCl (Zofran) 4 mg IV Q8H PRN PRN PRN Reason: NAUSEA/VOMITING Pravastatin Sodium (Pravachol) 40 mg PO QHS [facility] Last Admin: 01/07/19 22:38 Dose: 40 mg Sodium Chloride () 5 - 15 ml IV UD PRN PRN Reason: SALINE FLUSH Last Admin: 01/08/19 07:01 Dose: 5 ml Sotalol HCl (Betapace (G)) 80 mg PO BID [facility] Last Admin: 01/08/19 09:17 Dose: 80 mg Medical Necessity - Tobacco Use Smoking Status: Never smoker Tobacco Use: Non-smoker Assessment/Plan All Active Problems (Last Updated 01/07/19 @ 15:20 by Nicky Torres) Atrial flutter with rapid ventricular response (Acute) Patient is a 68-year-old lady with history of aortic valve replacement with porcine material who presented to the emergency department with chest tightness with associated lightheadedness. EKG obtained in the emergency department demonstrated A. fib flutter with aberrancy. Admitted to a monitored bed for subsequent management 1. Paroxysmal atrial/flutter fibrillation with RVR and aberrancy. Patient apparently underwent cardioversion in the ED converted to sinus rhythm subsequently admitted to the progressive care unit patient however went back into A. fib Case discussed with Dr. Torres plan is for patient to be started on Tikosyn. As part of patient's management she underwent a nuclear stress test on 01/06/2019 which was negative for stress-induced ischemia. ~01/07/2019;Telemetry monitoring revealed episodes of bradycardia as well as A. fib with aberrancy. Case was discussed with Dr. Torres the day prior to patient undergo pacemaker placement on 01/07/2019 ~01/08/2019; Patient underwent pacemaker placement on 01/07/2019. Case discussed with Dr. Blanc with cardiology plan is for patient to be initiated on sotalol necessitating patient being kept in the hospital for 48 hours 2. Mild intermittent asthma: Currently not in exacerbation 3. Essential hypertension-blood pressure controlled, home medications continued with dose adjustment as needed 4. Dyslipidemia: Patient is on pravastatin did continue 5. Diabetes mellitus type 2: Patient oral medications held placed and Accu-Cheks before meals and at bedtime with sliding scale coverage 6. 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 GERD on H2 blockers 8. DVT prophylaxis on Lovenox; discontinued for her pacemaker placement on 01/07/2019 Active Medications Acetaminophen (Tylenol) 650 mg PO Q6H PRN PRN PRN Reason: Non-cardiac pain (mod-severe) Last Admin: 01/08/19 08:03 Dose: 650 mg Hydrocodone Bitart/Acetaminophen ([place] 5mg-325mg) 1 - 2 tablet PO Q6H PRN PRN PRN Reason: MOD-SEVERE PAIN (4-10/10) Last Admin: 01/07/19 20:31 Dose: 1 tablet Al Hydroxide/Mg Hydroxide (Mylanta Ii) 15 - 30 ml PO Q4H PRN PRN PRN Reason: INDIGESTION Albuterol Sulfate (Ventolin Aerosols) 2.5 mg INHALATION Q2H PRN PRN PRN Reason: dyspnea, wheezing Albuterol/Ipratropium (Duoneb) 3 ml INHALATION Q6HWA.RT [facility] Last Admin: 01/08/19 06:55 Dose: 3 ml Cholecalciferol (Vitamin D) 2,000 unit PO DAILY [facility] Last Admin: 01/08/19 09:16 Dose: 2,000 unit Dextrose (D50w Syringe) 0 gm IV X1 PRN; Protocol PRN Reason: Hypoglycemia Famotidine (Pepcid) 20 mg PO BID [facility] Last Admin: 01/08/19 09:16 Dose: 20 mg Glucagon () 1 mg IM .X1 PRN PRN Reason: Hypoglycemia Hydralazine HCl (Apresoline Iv) 10 mg IV Q4H PRN PRN PRN Reason: SBP > 160 Insulin Human Lispro (Humalog Kwikpen (Bkc)) 0 unit SQ ACHS [facility]; Protocol Last Admin: 01/08/19 07:01 Dose: Not Given Lisinopril (Zestril) 5 mg PO DAILY [facility] Last Admin: 01/08/19 09:16 Dose: 5 mg Melatonin (Melatonin) 3 mg PO QHS PRN PRN PRN Reason: INSOMNIA Morphine Sulfate () 1 - 2 mg IV Q4H PRN PRN PRN Reason: PAIN Nitroglycerin (Nitrostat) 0.4 mg SUBLINGUAL Q5M PRN PRN Reason: CARDIAC/CHEST PAIN Ondansetron HCl (Zofran) 4 mg IV Q8H PRN PRN PRN Reason: NAUSEA/VOMITING Pravastatin Sodium (Pravachol) 40 mg PO QHS [facility] Last Admin: 01/07/19 22:38 Dose: 40 mg Sodium Chloride () 5 - 15 ml IV UD PRN PRN Reason: SALINE FLUSH Last Admin: 01/08/19 07:01 Dose: 5 ml Sotalol HCl (Betapace (G)) 80 mg PO BID [facility] Last Admin: 01/08/19 09:17 Dose: 80 mg Clinical Impression(s) from Imaging Studies Chest X-Ray 01/05/19 18:47 IMPRESSION: No acute chest disease. Electronically Signed: Darius Dukes MD at 19:03 EDT , Service support , Code Visit Inpatient E&M: 02509 Subs Hosp L2
--- NOTE | 2019-01-08 09:38 | PN_ITS ---
Patient Problems: Active and Suspected Problems (Last Updated 01/07/19 @ 15:20 by Nicky Torres) Atrial flutter with rapid ventricular response (Acute) Subjective: Patient underwent pacemaker placement on 01/07/2019. Case discussed with Dr. pennington with cardiology plan is for patient to be initiated on sotalol necessitating patient being kept in the hospital for 48 hours Objective: GENERAL: cooperative HEENT: Atraumatic; EYES; Anicteric, Normal Conjunctiva NECK; supple, normal thyroid, RESPIRATORY: Diminished to auscultation CARDIOVASCULAR: Irregular S1 S2, GI: soft, non-tender, normoactive bowel sounds, : No Renal angle tenderness; EXTREMITIES: Left upper extremity in a sling MUSCULOSKELETAL: No Joint Tenderness; NEURO: Awake; no lateralizing signs. SKIN: No Rash PSYCH; Normal affect Vitals/I&O's: Vital Signs Temp Pulse Resp BP Pulse Ox 98.1 F 69 16 118/69 97 01/08/19 09:05 01/08/19 09:05 01/08/19 09:05 01/08/19 09:05 01/08/19 09:05 Oxygen Flow Rate (L/min) 1.5 Oxygen Delivery Method Room Air Weight: 75.296 kg Body Mass Index (BMI) 28.8 Intake and Output for Last 24 Hours 01/06/19 01/07/19 01/08/19 23:59 23:59 23:59 Intake Total 1240 / 1240 2027 / 2027 602 / 602 Output Total 1250 / 1250 Balance 1240 / 1240 778 / 778 602 / 602 Laboratory Results 01/07/19 11:30: MRSA (PCR) Negative 01/07/19 12:05: POC Glucose 94 01/07/19 16:34: POC Glucose 90 01/07/19 22:37: POC Glucose 120 H 01/08/19 05:43: Hgb 10.1 L, Hct 38.1 01/08/19 05:43: Sodium 145, Potassium 4.3, Chloride 114 H, Carbon Dioxide 23.0, Anion Gap 8, BUN 20 H, Creatinine 0.90, Estim Creat Clear Calc 55.75, Est GFR (MDRD) Af Amer 79, Est GFR (MDRD) Non-Af 65, BUN/Creatinine Ratio 22.2 H, Glucose 84, Calcium 9.0 01/08/19 07:01: POC Glucose 84 Current Medications Acetaminophen (Tylenol) 650 mg PO Q6H PRN PRN PRN Reason: Non-cardiac pain (mod-severe) Last Admin: 01/08/19 08:03 Dose: 650 mg Hydrocodone Bitart/Acetaminophen ([place] 5mg-325mg) 1 - 2 tablet PO Q6H PRN PRN PRN Reason: MOD-SEVERE PAIN (4-10/10) Last Admin: 01/07/19 20:31 Dose: 1 tablet Al Hydroxide/Mg Hydroxide (Mylanta Ii) 15 - 30 ml PO Q4H PRN PRN PRN Reason: INDIGESTION Albuterol Sulfate (Ventolin Aerosols) 2.5 mg INHALATION Q2H PRN PRN PRN Reason: dyspnea, wheezing Albuterol/Ipratropium (Duoneb) 3 ml INHALATION Q6HWA.RT [facility] Last Admin: 01/08/19 06:55 Dose: 3 ml Cholecalciferol (Vitamin D) 2,000 unit PO DAILY [facility] Last Admin: 01/08/19 09:16 Dose: 2,000 unit Dextrose (D50w Syringe) 0 gm IV X1 PRN; Protocol PRN Reason: Hypoglycemia Famotidine (Pepcid) 20 mg PO BID [facility] Last Admin: 01/08/19 09:16 Dose: 20 mg Glucagon () 1 mg IM .X1 PRN PRN Reason: Hypoglycemia Hydralazine HCl (Apresoline Iv) 10 mg IV Q4H PRN PRN PRN Reason: SBP > 160 Sodium Chloride () 1,000 mls @ 100 mls/hr IV .Q10H [facility] Last Admin: 01/08/19 08:04 Dose: 100 mls/hr Insulin Human Lispro (Humalog Kwikpen (Bkc)) 0 unit SQ ACHS [facility]; Protocol Last Admin: 01/08/19 07:01 Dose: Not Given Lisinopril (Zestril) 5 mg PO DAILY [facility] Last Admin: 01/08/19 09:16 Dose: 5 mg Melatonin (Melatonin) 3 mg PO QHS PRN PRN PRN Reason: INSOMNIA Morphine Sulfate () 1 - 2 mg IV Q4H PRN PRN PRN Reason: PAIN Nitroglycerin (Nitrostat) 0.4 mg SUBLINGUAL Q5M PRN PRN Reason: CARDIAC/CHEST PAIN Ondansetron HCl (Zofran) 4 mg IV Q8H PRN PRN PRN Reason: NAUSEA/VOMITING Pravastatin Sodium (Pravachol) 40 mg PO QHS [facility] Last Admin: 01/07/19 22:38 Dose: 40 mg Sodium Chloride () 5 - 15 ml IV UD PRN PRN Reason: SALINE FLUSH Last Admin: 01/08/19 07:01 Dose: 5 ml Sotalol HCl (Betapace (G)) 80 mg PO BID [facility] Last Admin: 01/08/19 09:17 Dose: 80 mg Medical Necessity - Tobacco Use Smoking Status: Never smoker Tobacco Use: Non-smoker Assessment/Plan All Active Problems (Last Updated 01/07/19 @ 15:20 by Nicky Torres) Atrial flutter with rapid ventricular response (Acute) Patient is a 68-year-old lady with history of aortic valve replacement with porcine material who presented to the emergency department with chest tightness with associated lightheadedness. EKG obtained in the emergency department demonstrated A. fib flutter with aberrancy. Admitted to a monitored bed for subsequent management 1. Paroxysmal atrial/flutter fibrillation with RVR and aberrancy. Patient apparently underwent cardioversion in the ED converted to sinus rhythm subsequently admitted to the progressive care unit patient however went back into A. fib Case discussed with Dr. Torres plan is for patient to be started on Tikosyn. As part of patient's management she underwent a nuclear stress test on 01/06/2019 which was negative for stress-induced ischemia. ~01/07/2019;Telemetry monitoring revealed episodes of bradycardia as well as A. fib with aberrancy. Case was discussed with Dr. Torres the day prior to patient undergo pacemaker placement on 01/07/2019 ~01/08/2019; Patient underwent pacemaker placement on 01/07/2019. Case discussed with Dr. Blanc with cardiology plan is for patient to be initiated on sotalol necessitating patient being kept in the hospital for 48 hours 2. Mild intermittent asthma: Currently not in exacerbation 3. Essential hypertension-blood pressure controlled, home medications continued with dose adjustment as needed 4. Dyslipidemia: Patient is on pravastatin did continue 5. Diabetes mellitus type 2: Patient oral medications held placed and Accu- Cheks before meals and at bedtime with sliding scale coverage 6. 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 GERD on H2 blockers 8. DVT prophylaxis on Lovenox; discontinued for her pacemaker placement on 01/07/2019 Active Medications Acetaminophen (Tylenol) 650 mg PO Q6H PRN PRN PRN Reason: Non-cardiac pain (mod-severe) Last Admin: 01/08/19 08:03 Dose: 650 mg Hydrocodone Bitart/Acetaminophen ([place] 5mg-325mg) 1 - 2 tablet PO Q6H PRN PRN PRN Reason: MOD-SEVERE PAIN (4-10/10) Last Admin: 01/07/19 20:31 Dose: 1 tablet Al Hydroxide/Mg Hydroxide (Mylanta Ii) 15 - 30 ml PO Q4H PRN PRN PRN Reason: INDIGESTION Albuterol Sulfate (Ventolin Aerosols) 2.5 mg INHALATION Q2H PRN PRN PRN Reason: dyspnea, wheezing Albuterol/Ipratropium (Duoneb) 3 ml INHALATION Q6HWA.RT [facility] Last Admin: 01/08/19 06:55 Dose: 3 ml Cholecalciferol (Vitamin D) 2,000 unit PO DAILY [facility] Last Admin: 01/08/19 09:16 Dose: 2,000 unit Dextrose (D50w Syringe) 0 gm IV X1 PRN; Protocol PRN Reason: Hypoglycemia Famotidine (Pepcid) 20 mg PO BID [facility] Last Admin: 01/08/19 09:16 Dose: 20 mg Glucagon () 1 mg IM .X1 PRN PRN Reason: Hypoglycemia Hydralazine HCl (Apresoline Iv) 10 mg IV Q4H PRN PRN PRN Reason: SBP > 160 Insulin Human Lispro (Humalog Kwikpen (Bkc)) 0 unit SQ ACHS [facility]; Protocol Last Admin: 01/08/19 07:01 Dose: Not Given Lisinopril (Zestril) 5 mg PO DAILY [facility] Last Admin: 01/08/19 09:16 Dose: 5 mg Melatonin (Melatonin) 3 mg PO QHS PRN PRN PRN Reason: INSOMNIA Morphine Sulfate () 1 - 2 mg IV Q4H PRN PRN PRN Reason: PAIN Nitroglycerin (Nitrostat) 0.4 mg SUBLINGUAL Q5M PRN PRN Reason: CARDIAC/CHEST PAIN Ondansetron HCl (Zofran) 4 mg IV Q8H PRN PRN PRN Reason: NAUSEA/VOMITING Pravastatin Sodium (Pravachol) 40 mg PO QHS [facility] Last Admin: 01/07/19 22:38 Dose: 40 mg Sodium Chloride () 5 - 15 ml IV UD PRN PRN Reason: SALINE FLUSH Last Admin: 01/08/19 07:01 Dose: 5 ml Sotalol HCl (Betapace (G)) 80 mg PO BID [facility] Last Admin: 01/08/19 09:17 Dose: 80 mg Clinical Impression(s) from Imaging Studies Chest X-Ray 01/05/19 18:47 IMPRESSION: No acute chest disease. Electronically Signed: Darius Dukes MD at 19:03 EDT , Service support , Code Visit Inpatient E&M: 56999 Subs Hosp L2
--- NOTE | 2019-01-08 10:46 | CASEMGMT ---
Social Work Note SW met with pt to complete advanced directives. SW provided pt with original copy and placed copy of advanced directives on pt's chart. Marleen Gray LEAD CUSTOMER SERVICE REPRESENTATIVE, [employer]
[2019-01-08 12:11] LABS: Bedside Glucose 141 mg/dL (70-110)
[2019-01-08 16:41] LABS: Bedside Glucose 97 mg/dL (70-110)
[2019-01-08] MEDS: Pravastatin 40 MG Tablet PO (21:23)
[2019-01-08 22:25] LABS: Bedside Glucose 113 mg/dL (70-110)
[2019-01-09] VITALS (11 sets, daily range): BP systolic 104–121; BP diastolic 56–64; PULSE 59–90; RESP 16–18; TEMP 36.6–36.9; O2SAT 96–98
[2019-01-09] MEDS: Ipratropium/Albuterol Sulfate 3 ML AMPUL.NEB INHALATION ×2 (07:15→19:12)
[2019-01-09 07:26] LABS: Bedside Glucose 29 mg/dL (70-110)
[2019-01-09 07:26] LABS: Bedside Glucose 108 mg/dL (70-110)
--- NOTE | 2019-01-09 07:44 | PN_ITS ---
Patient Problems: Active and Suspected Problems (Last Updated 01/07/19 @ 15:20 by Nicky Torres) Atrial flutter with rapid ventricular response (Acute) Subjective: Patient seen complains of some soreness at the site of her pacemaker incision. EKG obtained this morning demonstrates QTC of 457 Objective: GENERAL: cooperative HEENT: Atraumatic; EYES; Anicteric, Normal Conjunctiva NECK; supple, normal thyroid, RESPIRATORY: Diminished to auscultation CARDIOVASCULAR: Irregular S1 S2, GI: soft, non-tender, normoactive bowel sounds, : No Renal angle tenderness; EXTREMITIES: Left upper extremity in a sling MUSCULOSKELETAL: No Joint Tenderness; NEURO: Awake; no lateralizing signs. SKIN: No Rash PSYCH; Normal affect Vitals/I&O's: Vital Signs Temp Pulse Resp BP Pulse Ox 97.8 F 63 16 104/64 97 01/09/19 03:05 01/09/19 06:49 01/09/19 03:05 01/09/19 03:05 01/09/19 03:05 Oxygen Flow Rate (L/min) 1.5 Oxygen Delivery Method Room Air Weight: 75.296 kg Body Mass Index (BMI) 28.8 Intake and Output for Last 24 Hours 01/07/19 01/08/19 01/09/19 23:59 23:59 23:59 Intake Total 2027 / 2027 1583 / 1583 120 / 120 Output Total 1250 / 1250 750 / 750 750 / 750 Balance 778 / 778 833 / 833 -630 / -630 Laboratory Results 01/08/19 05:43: Sodium 145, Potassium 4.3, Chloride 114 H, Carbon Dioxide 23.0, Anion Gap 8, BUN 20 H, Creatinine 0.90, Estim Creat Clear Calc 55.75, Est GFR (MDRD) Af Amer 79, Est GFR (MDRD) Non-Af 65, BUN/Creatinine Ratio 22.2 H, Glucose 84, Calcium 9.0 01/08/19 11:29: POC Glucose 141 H 01/08/19 16:37: POC Glucose 97 01/08/19 21:22: POC Glucose 113 H 01/09/19 06:52: POC Glucose 29 L* 01/09/19 07:03: POC Glucose 108 Current Medications Acetaminophen (Tylenol) 650 mg PO Q6H PRN PRN PRN Reason: Non-cardiac pain (mod-severe) Last Admin: 01/08/19 20:00 Dose: 650 mg Hydrocodone Bitart/Acetaminophen ([place] 5mg-325mg) 1 - 2 tablet PO Q6H PRN PRN PRN Reason: MOD-SEVERE PAIN (4-10/10) Last Admin: 01/07/19 20:31 Dose: 1 tablet Al Hydroxide/Mg Hydroxide (Mylanta Ii) 15 - 30 ml PO Q4H PRN PRN PRN Reason: INDIGESTION Albuterol Sulfate (Ventolin Aerosols) 2.5 mg INHALATION Q2H PRN PRN PRN Reason: dyspnea, wheezing Albuterol/Ipratropium (Duoneb) 3 ml INHALATION Q6HWA.RT [facility] Last Admin: 01/09/19 07:15 Dose: 3 ml Cholecalciferol (Vitamin D) 2,000 unit PO DAILY [facility] Last Admin: 01/08/19 09:16 Dose: 2,000 unit Dextrose (D50w Syringe) 0 gm IV X1 PRN; Protocol PRN Reason: Hypoglycemia Famotidine (Pepcid) 20 mg PO BID [facility] Last Admin: 01/08/19 21:23 Dose: 20 mg Glucagon () 1 mg IM .X1 PRN PRN Reason: Hypoglycemia Hydralazine HCl (Apresoline Iv) 10 mg IV Q4H PRN PRN PRN Reason: SBP > 160 Insulin Human Lispro (Humalog Kwikpen (Bkc)) 0 unit SQ ACHS [facility]; Protocol Last Admin: 01/09/19 06:57 Dose: Not Given Lisinopril (Zestril) 5 mg PO DAILY [facility] Last Admin: 01/08/19 09:16 Dose: 5 mg Melatonin (Melatonin) 3 mg PO QHS PRN PRN PRN Reason: INSOMNIA Morphine Sulfate () 1 - 2 mg IV Q4H PRN PRN PRN Reason: PAIN Nitroglycerin (Nitrostat) 0.4 mg SUBLINGUAL Q5M PRN PRN Reason: CARDIAC/CHEST PAIN Ondansetron HCl (Zofran) 4 mg IV Q8H PRN PRN PRN Reason: NAUSEA/VOMITING Pravastatin Sodium (Pravachol) 40 mg PO QHS [facility] Last Admin: 01/08/19 21:23 Dose: 40 mg Sodium Chloride () 5 - 15 ml IV UD PRN PRN Reason: SALINE FLUSH Last Admin: 01/08/19 07:01 Dose: 5 ml Sotalol HCl (Betapace (G)) 80 mg PO BID [facility] Last Admin: 01/08/19 21:23 Dose: 80 mg Medical Necessity - Tobacco Use Smoking Status: Never smoker Tobacco Use: Non-smoker Assessment/Plan All Active Problems (Last Updated 01/07/19 @ 15:20 by Nicky Torres) Atrial flutter with rapid ventricular response (Acute) Patient is a 68-year-old lady with history of aortic valve replacement with porcine material who presented to the emergency department with chest tightness with associated lightheadedness. EKG obtained in the emergency department demonstrated A. fib flutter with aberrancy. Admitted to a monitored bed for subsequent management 1. Paroxysmal atrial/flutter fibrillation with RVR and aberrancy. Patient apparently underwent cardioversion in the ED converted to sinus rhythm subsequently admitted to the progressive care unit patient however went back into A. fib Case discussed with Dr. Torres plan is for patient to be started on Tikosyn. As part of patient's management she underwent a nuclear stress test on 01/06/2019 which was negative for stress-induced ischemia. ~01/07/2019;Telemetry monitoring revealed episodes of bradycardia as well as A. fib with aberrancy. Case was discussed with Dr. Torres the day prior to patient undergo pacemaker placement on 01/07/2019 ~01/08/2019; Patient underwent pacemaker placement on 01/07/2019. Case discussed with Dr. Blanc with cardiology plan is for patient to be initiated on sotalol necessitating patient being kept in the hospital for 48 hours 01/09/2019: Postoperative day 2 following pacemaker placement. Patient was started on sotalol on 01/08/2019. QTc 457. 2. Mild intermittent asthma: Currently not in exacerbation 3. Essential hypertension-blood pressure controlled, home medications continued with dose adjustment as needed 4. Dyslipidemia: Patient is on pravastatin did continue 5. Diabetes mellitus type 2: Patient oral medications held placed and Accu- Cheks before meals and at bedtime with sliding scale coverage 6. 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 GERD on H2 blockers 8. DVT prophylaxis on Lovenox; discontinued for her pacemaker placement on 01/07/2019 Disposition: Home Possibly on 01/10/2019 Code Visit Inpatient E&M: 64077 Subs Hosp L2
--- NOTE | 2019-01-09 08:58 | EKG12_ITS ---
Test Reason : ARRHYTHMIA Blood Pressure : / mmHG Vent. Rate : 061 BPM Atrial Rate : 061 BPM P-R Int : 256 ms QRS Dur : 156 ms QT Int : 454 ms P-R-T Axes : 069 -01 132 degrees QTc Int : 457 ms Atrial-paced rhythm with prolonged AV conduction Left bundle branch block Abnormal ECG Confirmed by REZA RASCON, KATINA ([id number]), supervising editor trailer EVELYNE ENGEL ([id number]) on 01/12/2019 12:05:29 PM Referred By: Marlen Woodson Confirmed By:KATINA COBB MD
[2019-01-09] MEDS: Lisinopril 5 MG Tablet PO (09:04)
[2019-01-09] MEDS: Famotidine 20 MG Tablet PO ×2 (09:04→21:28)
[2019-01-09] MEDS: Sotalol Hydrochloride 80 MG Tablet PO ×2 (09:04→21:28)
--- NOTE | 2019-01-09 10:07 | PCM.PN.CARD ---
Subjectve: Patient seen and evaluated. Appears to be doing well Objective: Vital Signs Temp Pulse Resp BP Pulse Ox 98.2 F 60 16 117/63 96 01/09/19 09:02 01/09/19 09:02 01/09/19 09:02 01/09/19 09:02 01/09/19 09:02 Oxygen Flow Rate (L/min) 1.5 Oxygen Delivery Method Room Air Weight: 166 lb Body Mass Index (BMI) 28.8 Intake and Output for Last 24 Hours 01/07/19 01/08/19 01/09/19 23:59 23:59 23:59 Intake Total 2027 1583 / 1583 120 / 120 Output Total 1250 / 1250 750 / 750 750 / 750 Balance 778 / 778 833 / 833 -630 / -630 General: Awake, Alert, Oriented x 3 HEENT: PERRL, EOMI, Sclera Non Icteric Neck: Supple, Good ROM, No Lymph Node Enlargement Lungs: Clear to auscultation Cardiovascular: Regular Rhythm, Normal S1, Normal S2, No Murmurs, No Rubs, No Gallops Vascular: No Carotid Bruits, Normal Femoral Pulses, Normal Radial Pulses, Normal Dorsalis Pedal Pulse, Normal Posterior Tibial Pulses Abdomen: Bowel Sounds Present, Soft, Non Tender, No HSM, No Organomegaly Extremities: No Cyanosis, No Clubbing, No edema Musculoskeletal: No Erythema Skin: No Rashes Lymphatic: No Lymph Node Enlargement Neurological: No Focal Motor or Sensory Deficit Psych/Mental Status: Appropriate Rhythm: EKG: ECHO: Stress Test: Cardiac Cath: PCI: CT Surgery: Holter monitor: EPS: PPM: CXR: Chest CT Scan: Medical Necessity - Tobacco Use Smoking Status: Never smoker Tobacco Use: Non-smoker Assessment/Plan 1. Atrial flutter with rapid ventricular response The patient appears to have demonstrated evidence of atrial flutter with a rapid ventricular response. This was further identified in the emergency department after IV adenosine demonstrating the underlying atrial flutter activity. The patient has had subsequent spontaneous return to sinus rhythm/sinus bradycardia. The patient does have an underlying IVCD/left bundle branch block pattern. 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 Chest x-ray demonstrates no abnormalities and pacer check this morning was good. Decision by primary azure principal solution specialist to start patient on sotalol. This would necessitate at least 5 doses and therefore patient would need to stay in-house until Thursday morning. Patient has expressed understanding. 2. Aortic valve disease status post aortic valve replacement At the present time she has undergone recent evaluation of her aortic valve by transthoracic echocardiogram as noted above. An attempt will be made to obtain previous medical records to assist in knowledge of her aortic valve disease process. She will need continued future follow-up as an inpatient and outpatient as deemed appropriate to monitor her aortic valve. She also needs continued AHA antibiotic prophylaxis. 3. Hyperlipidemia She will continue medical management. Thank you for allowing me to participate in the care of your patient. Please don't hesitate to call if any issues arise
--- NOTE | 2019-01-09 10:10 | PN.CARD_ITS ---
Subjectve: Patient seen and evaluated. Appears to be doing well Objective: Vital Signs Temp Pulse Resp BP Pulse Ox 98.2 F 60 16 117/63 96 01/09/19 09:02 01/09/19 09:02 01/09/19 09:02 01/09/19 09:02 01/09/19 09:02 Oxygen Flow Rate (L/min) 1.5 Oxygen Delivery Method Room Air Weight: 166 lb Body Mass Index (BMI) 28.8 Intake and Output for Last 24 Hours 01/07/19 01/08/19 01/09/19 23:59 23:59 23:59 Intake Total 2027 1583 / 1583 120 / 120 Output Total 1250 / 1250 750 / 750 750 / 750 Balance 778 / 778 833 / 833 -630 / -630 General: Awake, Alert, Oriented x 3 HEENT: PERRL, EOMI, Sclera Non Icteric Neck: Supple, Good ROM, No Lymph Node Enlargement Lungs: Clear to auscultation Cardiovascular: Regular Rhythm, Normal S1, Normal S2, No Murmurs, No Rubs, No Gallops Vascular: No Carotid Bruits, Normal Femoral Pulses, Normal Radial Pulses, Normal Dorsalis Pedal Pulse, Normal Posterior Tibial Pulses Abdomen: Bowel Sounds Present, Soft, Non Tender, No HSM, No Organomegaly Extremities: No Cyanosis, No Clubbing, No edema Musculoskeletal: No Erythema Skin: No Rashes Lymphatic: No Lymph Node Enlargement Neurological: No Focal Motor or Sensory Deficit Psych/Mental Status: Appropriate Rhythm: EKG: ECHO: Stress Test: Cardiac Cath: PCI: CT Surgery: Holter monitor: EPS: PPM: CXR: Chest CT Scan: Medical Necessity - Tobacco Use Smoking Status: Never smoker Tobacco Use: Non-smoker Assessment/Plan 1. Atrial flutter with rapid ventricular response The patient appears to have demonstrated evidence of atrial flutter with a rapid ventricular response. This was further identified in the emergency department after IV adenosine demonstrating the underlying atrial flutter activity. The patient has had subsequent spontaneous return to sinus rhythm/sinus bradycardia. The patient does have an underlying IVCD/left bundle branch block pattern. 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 Chest x-ray demonstrates no abnormalities and pacer check this morning was good. * Decision by primary sound system installer to start patient on sotalol. This would necessitate at least 5 doses and therefore patient would need to stay in-house until Thursday morning. Patient has expressed understanding. 2. Aortic valve disease status post aortic valve replacement At the present time she has undergone recent evaluation of her aortic valve by transthoracic echocardiogram as noted above. An attempt will be made to obtain previous medical records to assist in knowledge of her aortic valve disease process. She will need continued future follow-up as an inpatient and outpatient as deemed appropriate to monitor her aortic valve. She also needs continued AHA antibiotic prophylaxis. 3. Hyperlipidemia She will continue medical management. Thank you for allowing me to participate in the care of your patient. Please don't hesitate to call if any issues arise
[2019-01-09 11:56] LABS: Bedside Glucose 120 mg/dL (70-110)
[2019-01-09 16:46] LABS: Bedside Glucose 133 mg/dL (70-110)
[2019-01-09] MEDS: Acetaminophen 325 MG Tablet 650 MG PO (20:47)
[2019-01-09] MEDS: Pravastatin 40 MG Tablet PO (21:28)
[2019-01-09 21:35] LABS: Bedside Glucose 118 mg/dL (70-110)
[2019-01-10] VITALS (9 sets, daily range): BP systolic 86–107; BP diastolic 54–63; PULSE 59–66; RESP 16–18; TEMP 36.4–37; O2SAT 95–98
[2019-01-10 07:00] LABS: Bedside Glucose 107 mg/dL (70-110)
[2019-01-10] MEDS: Ipratropium/Albuterol Sulfate 3 ML AMPUL.NEB INHALATION ×2 (07:06→13:29)
[2019-01-10] MEDS: Sotalol Hydrochloride 80 MG Tablet PO (09:21)
[2019-01-10] MEDS: Famotidine 20 MG Tablet PO (09:21)
[2019-01-10] MEDS: Lisinopril 5 MG Tablet PO (09:21)
--- NOTE | 2019-01-10 09:24 | EKG12_ITS ---
Test Reason : MEDICATION Blood Pressure : / mmHG Vent. Rate : 060 BPM Atrial Rate : 060 BPM P-R Int : 254 ms QRS Dur : 160 ms QT Int : 450 ms P-R-T Axes : 034 -16 142 degrees QTc Int : 450 ms Atrial-paced rhythm with prolonged AV conduction Left bundle branch block Abnormal ECG Confirmed by REZA RASCON, KATINA ([id number]), editor sound EVELYNE ENGEL ([id number]) on 01/12/2019 11:49:32 AM Referred By: Marlen Woodson Confirmed By:KATINA COBB MD
--- NOTE | 2019-01-10 11:00 | PN.CARD_ITS ---
Subjectve: The patient is status post permanent pacemaker placement and antiarrhythmic medication initiation. She appears to be recuperating well. She has no new acute complaints. Objective: Vital Signs Temp Pulse Resp BP Pulse Ox 97.6 F L 60 16 93/62 96 01/10/19 03:17 01/10/19 07:06 01/10/19 07:06 01/10/19 03:17 01/10/19 07:06 Oxygen Flow Rate (L/min) 1.5 Oxygen Delivery Method Room Air Weight: 166 lb Body Mass Index (BMI) 28.8 Intake and Output for Last 24 Hours 01/08/19 01/09/19 01/10/19 23:59 23:59 23:59 Intake Total 1583 / 1583 920 / 920 120 / 120 Output Total 750 / 750 1300 / 1300 Balance 833 / 833 -380 / -380 120 / 120 General: Awake, Alert, Oriented x 3, Cooperative, No Acute Distress HEENT: Atraumatic, Normocephalic, PERRL, EOMI, Sclera Non Icteric Oral: Moist Mucosa Neck: Supple, Good ROM, No JVD Lungs: Clear to auscultation Cardiovascular: Regular Rhythm, Normal S1, Normal S2 Murmur Murmur: Grade 3/6, Harsh, Mid Systolic, LLSB, LVOT, Sternal Notch Abdomen: Bowel Sounds Present, Soft, Non Tender Extremities: No edema Neurological: No Focal Motor or Sensory Deficit Psych/Mental Status: Appropriate Rhythm: Electronic atrial paced rhythm EKG: Electronic atrial paced rhythm; underlying left bundle branch block pattern Medical Necessity - Tobacco Use Smoking Status: Never smoker Tobacco Use: Non-smoker Assessment/Plan 1. Atrial flutter with rapid ventricular response The patient appears to be doing well status post her permanent pacemaker placement. She has continued to be monitored. She has initiated medical therapy with sotalol/Betapace. She appears to have done well with no adverse events or findings. The goal will be to continue a combination of medical management with respect to her underlying atrial dysrhythmia and permanent pacemaker support based upon concerns of her bradycardia dysrhythmia. As she recuperates from her pacemaker procedure she will be considered for future anticoagulant therapy as well. 2. Aortic valve disease status post aortic valve replacement At the present time she has undergone recent evaluation of her aortic valve by transthoracic echocardiogram as noted above. An attempt will be made to obtain previous medical records to assist in knowledge of her aortic valve disease process. She will need continued future follow-up as an inpatient and outpatient as deemed appropriate to monitor her aortic valve. She also needs continued AHA antibiotic prophylaxis. 3. Hyperlipidemia She will continue medical management. 4. Hypertension She will continue medical therapy with adjustment as needed taking into consideration concerns of any rate limiting factors. 5. Diabetes mellitus She will continue under the care of internal medicine. 6. COPD She will continue under the care of internal medicine and pulmonology as needed. 7. GERD She will continue medical therapy as deemed appropriate. 8. Carotid artery bruit She does have the appearance of a carotid artery bruit. According to her carotid artery duplex study she has mild disease bilaterally. Comment: The above was discussed with the [facility] staff. This note was generated with [facility] dictation software. It may contain incorrect words, spelling, and punctuation that were not noted in checking the note before signing.
[2019-01-10 11:41] LABS: Bedside Glucose 106 mg/dL (70-110)
--- NOTE | 2019-01-10 12:15 | EKG12_ITS ---
Test Reason : MEDICATION Blood Pressure : / mmHG Vent. Rate : 060 BPM Atrial Rate : 060 BPM P-R Int : 262 ms QRS Dur : 158 ms QT Int : 478 ms P-R-T Axes : 044 -18 112 degrees QTc Int : 478 ms Atrial-paced rhythm with prolonged AV conduction Left bundle branch block Abnormal ECG Confirmed by REZA RASCON, KATINA ([id number]), brands editor EVELYNE ENGEL ([id number]) on 01/12/2019 11:49:02 AM Referred By: Marlen Woodson Confirmed By:KATINA COBB MD
--- NOTE | 2019-01-10 13:20 | DCINST_ITS ---
- Discharge Diagnoses Current Active Problems: Current Active and Chronic Problems (Last Updated 01/07/19 @ 15:20 by Nicky Torres) Non-rheumatic aortic stenosis (Chronic) Essential (primary) hypertension (Chronic) Presence of permanent cardiac pacemaker (Chronic 01/07/19) Sick sinus syndrome (Chronic) SA node dysfunction (Chronic) Atrial flutter with rapid ventricular response (Acute) HLD (hyperlipidemia) (Chronic) H/O aortic valve replacement (Chronic) 2012 Diabetes mellitus, type II (Chronic) You will use the following diet at home:: Cardiac Your food should be the consistency of: Regular Your liquids should be the consistency of: Regular/Thin Discharge Activity: Return to Normal Activity, No Restrictions Call your doctor if your incision/area has: Sudden Increased Bleeding, Increased Pain/ Swelling, Increased Redness, Swelling at the incision site Call your doctor if you observe: Fever of 101 or Higher, Shortness of breath, Dizziness, Fainting spells, Swelling in the ankles, Chest pain, Increased palpitations (irregular heartbeat) Allergies/Adverse Reactions: Allergies Penicillins Allergy (Verified 01/05/19 18:30) Shortness of breath Medications to take at Discharge Lisinopril [Zestril] 5 mg PO DAILY 09/06/16 Pravastatin [Pravachol] 40 mg PO DAILY 09/06/16 Ranitidine [Zantac] 150 mg PO BID 09/06/16 fluticasone furoate 200 mcg-vilanterol 25 mcg/dose inhalation powder 1 inh INHALATION DAILY #3 device 11/16/17 metformin 500 mg tablet 500 mg PO DAILY 12/01/17 albuterol sulfate HFA 90 mcg/actuation aerosol inhaler 2 puff INHALATION Q6H PRN #18 g 07/01/18 Cholecalciferol (Vitamin D3) [D3-2000] 2,000 unit PO DAILY 01/05/19 Sotalol Hydrochloride [Betapace (Beta Mira)] 80 mg PO BID #60 tablet 01/10/19 The following prescriptions were given: Sotalol Hydrochloride [Betapace (Beta Mira)] 80 mg PO BID #60 tablet Primary Care Physician: Davon Calzada MD [Primary Care Provider] - Please follow up with your Primary Care Physician in: 3-5 days Test Results: Test results from this visit will be discussed in further detail at your follow- up appointment, if applicable. Please Follow Up With: Rubio Blanc MD When: 1 week
--- NOTE | 2019-01-10 13:37 | DS.PCM_ITS ---
Discharge Date and Diagnosis - Problem List Patient Problems: Active and Suspected Problems (Last Updated 01/07/19 @ 15:20 by Nicky Torres) Atrial flutter with rapid ventricular response (Acute) Date of Admission: 01/05/19 Date of Discharge: 01/10/19 - Primary Discharge Diagnosis Active and Suspected Problems (Last Updated 01/07/19 @ 15:20 by Nicky Torres) Atrial flutter with rapid ventricular response (Acute) - Secondary Discharge Diagnosis Chronic Problems (Last Updated 01/07/19 @ 15:20 by Nicky Torres) Non-rheumatic aortic stenosis (Chronic) Essential (primary) hypertension (Chronic) Presence of permanent cardiac pacemaker (Chronic 01/07/19) Sick sinus syndrome (Chronic) SA node dysfunction (Chronic) HLD (hyperlipidemia) (Chronic) H/O aortic valve replacement (Chronic) Porcine 2012 Diabetes mellitus, type II (Chronic) Asthma (Chronic) GERD (gastroesophageal reflux disease) (Chronic) Hospital Course and Treatment Imaging Results: CXR: IMPRESSION: No acute chest disease. Carotid Duplex: Interpretation Summary Minimal plague at the proximal right internal carotid with <50% stenosis. <50% stenosis right external carotid Minimal calcific plague at the proximal left internal carotid with <50% stenosis. <50% stenosis left external carotid Patent and antegrade vertebrals bilaterally Operations: - - PROCEDURES PERFORMED [id number] PACER INSERT+DUAL LEADS INDICATIONS Sinoatrial node dysfunction/Sick sinus syndrome CONCLUSIONS / RECOMMENDATIONS Device Conclusions: Successful implantation of a dual chamber pacemaker battery change and replacement Device Recommendations: Follow up with Primary Care Physician Procedures: Nuclear stress test - Impression: 1. Rest and stress SPECT currently nuclear imaging demonstrate myocardial perfusion changes appearing compatible defects of physiologic apical thinning with no myocardial perfusion changes considered diagnostic for associated stress-induced myocardial ischemia or previous myocardial injury/infarction. 2. The gated Cardiolite study reports an LVEF of 69 %. Summary of Care Provided: Per HPI: The patient is a 68 y/o F w/ PMHx: Asthma, HTN, HLD, GERD, Diabetes mellitus type II, Valvular Heart Disease w/ s/p Porcine AVR 2012 who presents to the [facility] ED on 01/05/19 with history of onset intermittent chest tightness with associated lightheadedness, dizziness in addition to dyspnea x2 days, worse on day of presentation with more pronounced symptoms and more episodes prompting eventual presentation to the ED. Patient rated chest tightness as mild to moderate, 4-5 out of 10, currently completely resolved. She denies having had any episodes like this prior. The ED work-up included T 99.1, heart rate 133, BP 116/81, respiratory rate 18, 97% on room air, unremarkable CBC, unremarkable coags, BMP with chloride 114, BUN/Cr 20/1.11, glucose 113, trop 0.020, chest x- ray with no acute cardiopulmonary findings, initial EKG with monomorphic tachycardia, wide-complex at a rate of 135 with administration of 6 mg adenosine following which patient demonstrated atrial flutter with eventual chemical cardioversion with demonstrated sinus rhythm with a left bundle branch block. Patient was administered aspirin and nitroglycerin per EMS prior to arrival and had been a 5 level of discomfort but improved to 3 and is noted upon evaluation was 0. Hospital Course: 1. Paroxysmal atrial flutter/fib with RVR and aberrancy/HTN/HLD/aortic valve [id number] female who presented to the ER with a history of intermittent chest tightness and lightheadedness/dizziness that had worsened to 2 days prior to admission. She was found to have initial monomorphic tachycardia and a wide-complex he was given 6 mg of adenosine at which point she demonstrated atrial flutter and eventual chemical cardioversion with sinus rhythm and left bundle branch block. She was evaluated by cardiology and had a stress test which showed some physiologic apical thinning without any signs of ischemia. She had a normal EF on her stress test. She then had a carotid duplex which was negative for any stenosis. She underwent pacemaker placement for sick sinus syndrome and also started on sotalol. She had a normal QTC today 3 hours after her sotalol dose and therefore it was determined she can be discharged. She is healing well from her pacemaker and will follow-up with cardiology in a week at which point the wound can be evaluated and they can have a more in-depth discussion about anticoagulation options for her in the future. She does need to wear the sling. She will need to follow-up with her primary care physician in 3 to 5 days. This was discussed with the patient and she understood and agrees with plan. Her home medication for blood pressure and hyperlipidemia were continued on discharge. 2. Her other medical diagnoses were evaluated in her home medications were continued where appropriate Patient Problems: Active and Suspected Problems (Last Updated 01/07/19 @ 15:20 by Nicky Torres) Atrial flutter with rapid ventricular response (Acute) - Physical Exam General: Alert, Oriented x3, Cooperative, No apparent distress HEENT: Atraumatic, PERRLA, EOMI, Normocephalic Oral: Moist Mucosa Neck: Supple, No JVD Lungs: Clear to auscultation, Normal air movement, No rhonchi, No wheeze, No rales, Diminished Cardiovascular: Regular rate, Normal S1, Normal S2, No murmurs, - - irregular rhythm Abdomen: Soft, Non Tender, Non-Distended, No Hepato-splenomegaly Extremities: No edema, Capillary Refill Less than 3 Seconds Skin: No rashes, No breakdown, Incision - Dressing is clean dry and intact Neurological: Neuro grossly intact, Sensory exam intact to light touch and pain Psych/Mental Status: Normal Affect, Appropriate Vital Signs Temp Pulse Resp BP Pulse Ox 98.0 F 60 16 107/62 98 01/10/19 09:15 01/10/19 09:15 01/10/19 09:15 01/10/19 09:15 01/10/19 09:15 Oxygen Flow Rate (L/min) 1.5 Oxygen Delivery Method Room Air Weight: 166 lb Body Mass Index (BMI) 28.8 Intake and Output for Last 24 Hours 01/08/19 01/09/19 01/10/19 23:59 23:59 23:59 Intake Total 1583 / 1583 920 / 920 120 / 120 Output Total 750 / 750 1300 / 1300 Balance 833 / 833 -380 / -380 120 / 120 POC Glucose 01/10/19 01/10/19 01/09/19 11:23 06:40 21:27 POC Glucose 106 107 118 H 01/09/19 16:29 POC Glucose 133 H Discharge Activity: Return to Normal Activity, No Restrictions Call your doctor if your incision/area has: Sudden Increased Bleeding, Increased Pain/ Swelling, Increased Redness, Swelling at the incision site Call your doctor if you observe: Fever of 101 or Higher, Shortness of breath, Dizziness, Fainting spells, Swelling in the ankles, Chest pain, Increased palpitations (irregular heartbeat) Home Medications: Medications to take at Discharge Lisinopril [Zestril] 5 mg PO DAILY 09/06/16 Pravastatin [Pravachol] 40 mg PO DAILY 09/06/16 Ranitidine [Zantac] 150 mg PO BID 09/06/16 fluticasone furoate 200 mcg-vilanterol 25 mcg/dose inhalation powder 1 inh INHALATION DAILY #3 device 11/16/17 metformin 500 mg tablet 500 mg PO DAILY 12/01/17 albuterol sulfate HFA 90 mcg/actuation aerosol inhaler 2 puff INHALATION Q6H PRN #18 g 07/01/18 Cholecalciferol (Vitamin D3) [D3-2000] 2,000 unit PO DAILY 01/05/19 Sotalol Hydrochloride [Betapace (Beta Mira)] 80 mg PO BID #60 tablet 01/10/19 Following Prescrptions Were Given to Patient: Sotalol Hydrochloride [Betapace (Beta Mira)] 80 mg PO BID #60 tablet Primary Care Physician: Davon Calzada MD [Primary Care Provider] - Please follow up with your Primary Care Physician in: 3-5 days Please Follow Up With: Rubio Blanc MD When: 1 week Disposition: Home Minutes spent on discharge:: 35 Patient Condition:: Stable Medical Necessity - Tobacco Use Smoking Status: Never smoker Tobacco Use: Non-smoker Meaningful Use Info Meaningful Use Diagnoses (Choose all that apply): None applicable Code Visit Inpatient E&M: 92166 Disch Hosp
--- NOTE | 2019-01-10 14:57 | CHAPLAIN ---
Type of Pastoral Visit _x__ Initial Visit ___ Follow-up Visit ___ On-call Visit ___ General Patient Visit ___ Spiritual Assessment ___ Family Conference ___ Bereavement ___ Rapid Response ___ Code Blue ___ Other (describe below) Pastoral Care Referral From _x__ Patient ___ Family ___ Nurse ___ Physician ___ Title I Instructional Assistant ___ Aerospace Engineer ___ Other (describe below) Sacrament/Intervention _x__ Active listening ___ Anointing ___ Pentecostal ___ Bereavement ___ Communion ___ Kim exploration ___ ___ Life review ___ Prayer ___ Reconciliation ___ Sacrament of Sick ___ Supportive presence ___ Wedding ___ Other (describe below) Pastoral Comments visit was interrupted by staff/testing
--- NOTE | 2019-01-11 15:44 | CASEMGMT ---
REYNOLD ASCENCIO Discharge Follow-Up Phone Call. Lace: 12 Strata: 4 Discharge Date: 01/10/19 Adm Dx: New onset A-fib/flutter Attempted discharge follow-up phone call. No answer. Message left for pt to return call to SPORTS MEDICINE SPECIALISTMarleen FLAHERTY CM, if she has any questions/concerns re: discharge instructions, medications, or follow-up appts. Phone number provided. Brandon DUNAWAY RN CM
== END 2019-01-10 17:45 | disposition home or self-care (01) | DRG 244 ==
LOC: ED 19:02 → PCU 20:24
PROVIDERS: Internal Medicine; Internal Medicine Cardiovascular Disease; Admitting Provider Family Medicine; Emergency Provider Emergency Medicine; Family Provider Internal Medicine; PCP Internal Medicine; Referring Provider Family Medicine; Visit Provider Family Medicine
DX: I48.92 Unspecified atrial flutter (principal); I35.0 Nonrheumatic aortic (valve) stenosis; E78.5 Hyperlipidemia, unspecified; K21.9 Gastro-esophageal reflux disease without esophagitis; I10 Essential (primary) hypertension; Z95.3 Presence of xenogenic heart valve; I49.5 Sick sinus syndrome; Z79.84 Long term (current) use of oral hypoglycemic drugs; E11.9 Type 2 diabetes mellitus without complications; I44.7 Left bundle-branch block, unspecified
CPT/HCPCS: 33208; 36415; 71045; 71046; 78452; 80048; 80061; 82962; 83735; 84443; 84484; 85014; 85018; 85025; 85610; 85730; 87641; 93005; 93017; 93880; 94640; 99152; 99153; 99285; A9500; J7030; J7040; J7050; A4216; C1894; J0153; J2785

== ENCOUNTER 2019-01-14 15:06 | Emergency (ER) | payer MEDICARE, SELFPAY ==
[2019-01-05 18:31] VITALS: BMI 28.8
[2019-01-14 15:07] VITALS: BP 133/68; BP 145/79; PULSE 60; RESP 16; TEMP 36.7; O2SAT 97; BMI 27.1
[2019-01-14 15:19] VITALS: O2SAT 97
--- NOTE | 2019-01-14 15:19 | EKG12_ITS ---
Test Reason : CHEST DISCOMFORT Blood Pressure : / mmHG Vent. Rate : 060 BPM Atrial Rate : 060 BPM P-R Int : 244 ms QRS Dur : 154 ms QT Int : 456 ms P-R-T Axes : 061 012 123 degrees QTc Int : 456 ms Atrial-paced rhythm with prolonged AV conduction Left bundle branch block Abnormal ECG Confirmed by ODETTE RASCON, BENTLEY ([id number]), order editor ABIDA DONATO ([id number]) on 01/18/2019 9:21:47 AM Referred By: TL Confirmed By:BENTLEY PINO MD
--- NOTE | 2019-01-14 15:20 | ED.VISSUMM ---
- ER Visit Summary Date of Service: 01/14/19 Chief Complaint: Chest pain, dizziness History of Present Illness: The patient is a 69 F who has chest pain and dizziness. It started today. She feels a tightness in the middle part of her chest. It radiates into her back and she has pain between her shoulder blades. Exertion makes it worse and nothing makes it better. She was short of breath when it started. She also feels dizzy and lightheaded. The patient was here last week and diagnosed with atrial flutter with RVR. She was initially put on rate and rhythm control medications but then a permanent pacemaker was placed. She states that she has had no issues with the pacemaker wound. There is been no bleeding or discharge from this area. Physical Examination: Vital signs reviewed. HEENT exam unremarkable. Heart is regular rate and rhythm without murmurs. Lungs are clear to auscultation. Abdomen is soft and nontender. Extremities reveal no edema. Peripheral pulses are equal. Skin exam normal. The incision in the left upper chest is clean dry and intact. Neurologic exam normal. Test Results: EKG is paced with nonspecific changes. Rate of 60. Laboratory studies are unremarkable including troponin. Chest x-ray shows chronic changes Emergency Department Course and Treatment: Better after sublingual nitroglycerin. I spoke with Dr. Leonard on-call for Dr. Torres. He reviewed the case and felt the patient could be discharged home. She had a stress test last week which showed no ischemic changes. Patient has a follow-up next week as well. Treatment Plan: [] Disposition: Discharge Impression: Chest pain, recent pacemaker implantation This note was generated with [employer] software. It may contain incorrect words, spelling, and punctuation that were not noted in review of the chart prior to signing ED Disposition - Plan for ED Patient: Referrals: Davon Calzada MD [Primary Care Provider] -
--- NOTE | 2019-01-14 15:22 | RAD_ITS ---
STUDY: X-RAY CHEST REASON FOR EXAM: Female, 69 years old. Chest tightness and chest pain. TECHNIQUE: Single AP portable view of the chest. COMPARISON: Comparison is made with prior study dated January 08, 2019. FINDINGS: EKG electrodes are seen. Stable mild increased linear markings at the left lung base. This may represent mild scarring and/or atelectasis. There is no demonstrated pleural abnormality. Sternal cerclage wires are present from a prior sternotomy. A left-sided dual-chamber pacemaker is seen. Normal mediastinum and rosalinda. Normal visualized pulmonary arteries. Normal visualized aortic arch and descending thoracic aorta. Normal visualized thoracic spine. Normal visualized ribs, clavicles, and shoulders. There is no demonstrated abnormality of the visualized soft tissue structures of the upper abdomen. RAD/Chest 1 View (Portable) IMPRESSION: Stable mild increased markings at the left lung base suggestive of linear atelectasis and/or linear scarring. Electronically Signed: Mike Gray, at 15:36 EDT , Service support ,
[2019-01-14 15:40] LABS: Absolute Lymphocyte Count 1.56 X10^3/ul (0.83-4.51); Basophil# 0.04 X10^3/uL; Basophil% 0.5 % (0-1); Eosinophil# 0.14 X10^3/uL; Eosinophils% 1.9 % (0-5); Hemoglobin 12.8 g/dl (12.0-15.0); Lymphocyte # 1.56 X10^3/ul (4.0); Lymphocyte % 20.7 % (19-41); Mean Corpuscular Hgb 28.5 pg (27.0-32.0); Mean Corpuscular Volume 89.1 fL (81-99); Monocyte# 0.82 X10^3/uL; Monocyte% 10.9 % (0-10); Neutrophil # 4.95 X10^3/uL (2.7-7.7); Neutrophil % 65.9 % (47-70); POSITIVE COUNT NO; POSITIVE DIFFERENTIAL NO; POSITIVE MORPHOLOGY NO; Platelet Count 143 K/mm3 (150-450); RBC Distribution Width CV 14.3 % (11.6-14.6); RBC Distribution Width SD 46.3 fl (35.1-43.9); Red Blood Count 4.49 M/mm3 (4.2-5.4); White Blood Count 7.5 K/mm3 (4.4-11.0)
[2019-01-14 15:51] LABS: Anion Gap 4 (5-15); BUN 20 mg/dL (7-18); BUN/Creat Ratio 19.2 RATIO (10-20); Calcium,Total 9.4 mg/dL (8.5-10.1); Chloride 113 mmol/L (98-107); Creatinine, Serum 1.04 mg/dL (0.55-1.02); EST Glomerular Filtration Rate 56 mL/min (>60); Est Glom Filt Rate - Afr Amer 67 mL/min (>60); Estimated Creatinine Clearance 48.25 ml/min; Glucose 100 mg/dL (74-106); Potassium 4.4 mmol/L (3.5-5.1); Sodium Level 142 mmol/L (136-145)
[2019-01-14 15:58] VITALS: BP 112/69; PULSE 60; RESP 16; O2SAT 96
[2019-01-14] MEDS: Nitroglycerin SL (ED/IMG/CATH) 0.4 MG TABLET SUBLINGUAL ×3 (15:58→16:27)
[2019-01-14 16:34] VITALS: BMI 27.1
--- NOTE | 2019-01-14 16:56 | ED.DEP ---
ED Disposition - Plan for ED Patient: Disposition: Home or Assisted Living Instructions: ED Chest Pain NonCardiac Referrals: Davon Calzada MD [Primary Care Provider] -
[2019-01-14 17:11] VITALS: BP 104/60; PULSE 60; RESP 16; O2SAT 96; O2SAT 97
== END 2019-01-14 17:19 | disposition home or self-care (01) ==
PROVIDERS: Emergency Provider Emergency Medicine; Family Provider Internal Medicine; PCP Internal Medicine
DX: R07.89 Other chest pain (principal); Z95.0 Presence of cardiac pacemaker; R42 Dizziness and giddiness; R06.00 Dyspnea, unspecified; I48.92 Unspecified atrial flutter; E11.9 Type 2 diabetes mellitus without complications; I10 Essential (primary) hypertension; Z79.84 Long term (current) use of oral hypoglycemic drugs; Z79.899 Other long term (current) drug therapy
CPT/HCPCS: 71045; 80048; 84484; 85025; 93005; 99285; A4216

== ENCOUNTER 2019-05-20 08:37 | Emergency (ER) | payer MEDICARE, SELFPAY ==
[2019-03-21 08:19] VITALS: BMI 26.6
[2019-05-20 08:39] VITALS: BP 146/86; PULSE 61; RESP 18; TEMP 36.6; O2SAT 99; BMI 26.6
--- NOTE | 2019-05-20 08:55 | CT_ITS ---
STUDY: CT BRAIN WITHOUT CONTRAST REASON FOR EXAM: Female, 69 years old. Dizziness. RADIATION DOSAGE (If Supplied By Facility): CTDIvol = ( 44.99 ) mGy, DLP = ( 796.11 ) mGycm TECHNIQUE: Transaxial CT imaging of the brain was performed without administration of intravenous contrast material. Individualized dose optimization techniques were used for this CT. COMPARISON: No relevant priors. FINDINGS: Normal soft tissue structures. Normal calvarium. Normal size ventricles and extra-axial spaces for the patient's age. Normal white matter tracts of the cerebral hemispheres. Normal basal ganglia and thalami. Normal brainstem. Normal cerebellum. There is no intracranial hemorrhage. There are no findings of an acute ischemic infarction. Normal visualized paranasal sinuses. CT/Brain/Head without Contrast IMPRESSION: Normal unenhanced CT scan of the brain. Electronically Signed: Mike Gray, at 10:09 EDT , Service support ,
--- NOTE | 2019-05-20 08:55 | EKG12_ITS ---
Test Reason : DIZZINESS Blood Pressure : / mmHG Vent. Rate : 060 BPM Atrial Rate : 060 BPM P-R Int : 262 ms QRS Dur : 156 ms QT Int : 456 ms P-R-T Axes : 008 -36 139 degrees QTc Int : 456 ms Atrial-paced rhythm with prolonged AV conduction Left axis deviation Left bundle branch block Abnormal ECG Confirmed by GINGER RASCON, AGUSTIN ([id number]), purchasing expeditor MAGALY STAHL ([id number]) on 05/27/2019 11:22:13 AM Referred By: Ori Torres Confirmed By:HARVEY MILES MD
--- NOTE | 2019-05-20 08:57 | RAD_ITS ---
STUDY: X-RAY CHEST REASON FOR EXAM: Female, 69 years old. Shortness of breath and dizziness. TECHNIQUE: Single AP portable view of the chest. COMPARISON: Comparison is made with prior study dated January 14, 2019. FINDINGS: EKG electrodes are seen. Stable mild elevation of the left hemidiaphragm. There is no demonstrated pleural abnormality. Sternal cerclage wires and vascular clips are present from a prior sternotomy and coronary artery bypass graft procedure (CABG). A left-sided dual-chamber pacemaker is seen. Normal mediastinum and rosalinda. Normal visualized pulmonary arteries. Normal visualized aortic arch and descending thoracic aorta. Normal visualized thoracic spine. Normal visualized ribs, clavicles, and shoulders. There is no demonstrated abnormality of the visualized soft tissue structures of the upper abdomen. RAD/Chest 1 View (Portable) IMPRESSION: No acute abnormality is seen. Electronically Signed: Mike Gray, at 9:36 EDT , Service support ,
--- NOTE | 2019-05-20 09:04 | ED.DCSUM_ITS ---
- ER Visit Summary Date of Service: 05/20/19 Chief Complaint: Dizziness History of Present Illness: The patient is a 69 F presenting with dizziness with standing. This has been intermittent over the past couple of weeks. Daughter states that it has been progressively worsening. She has had no syncope. She denies vertigo. Denies chest pain or shortness of breath. Denies fever or cough. She had mild nausea today. She has also had intermittent diarrhea. Denies blood in her stool. Denies abdominal pain. She complains of a mild headache. Denies other complaints. Physical Examination: Vitals are stable. Patient is afebrile. Alert no acute distress. HEENT exam is unremarkable. Neck is supple. Lungs are clear and equal bilaterally. Heart is regular rate and rhythm. Abdomen is soft nontender nondistended. Extremities are unremarkable. Skin is warm and dry. No focal neurologic deficit. NIH 0 Remainder of exam is unremarkable. Emergency Department Course and Treatment: Patient was given IV fluids. CBC, chemistries unremarkable other than glucose 152. EKG is paced with rate of 60, unchanged from previous. Urinalysis shows 10-25 white blood cells, 1+ bacteria. Urine culture sent. Troponin is negative. Chest x-ray shows no acute abnormality. CT head shows no acute process. Orthostatics negative. She was given Macrobid. Patient is feeling improved. She is able to ambulate in the ED. Discussed with patient and her daughter. She is comfortable with discharge home. Advised to return to the ED for worsening complaints. Advised to follow- up with primary care physician. Disposition: Discharge home Impression: Lightheadedness, UTI This note was generated with [employer] dictation software. It may contain incorrect words, spelling, and punctuation that were not noted in review of the chart prior to signing ED Disposition - Plan for ED Patient: Instructions: Understanding Urinary Tract Infections (UTIs), DIZZINESS, Unk Cause Prescriptions: Nitrofurantoin Macrocrystals [Macrobid] 100 mg PO Q12 #14 cap Prescription Printed Referrals: Davon Calzada MD [Primary Care Provider] -
[2019-05-20 09:06] LABS: Absolute Lymphocyte Count 1.53 X10^3/uL (0.83-4.51); Absolute Neutrophil Count 4.3 X10^3/uL (2.0-7.7); Basophil# 0.07 X10^3/uL; Basophil% 1.1 % (0-1); Hematocrit 41.3 % (37-47); Hemoglobin 13.4 g/dL (12.0-15.0); Lymphocyte # 1.53 X10^3/ul (4.0); Mean Corp Hgb Conc 32.4 g/dL (32-36); Mean Corpuscular Hgb 29.6 pg (27.0-32.0); Mean Corpuscular Volume 91.2 fL (81-99); Mean Platelet Vol. 10.7 fl (6.2-12.0); Monocyte# 0.49 X10^3/uL; Monocyte% 7.4 % (0-10); NRBC Flagged by Analyzer 0 % (0-5); Neutrophil # 4.32 X10^3/uL (2.7-7.7); Platelet Count 161 K/mm3 (150-450); RBC Distribution Width CV 14.8 % (11.6-14.6); RBC Distribution Width SD 49.7 fl (35.1-43.9); Red Blood Count 4.53 M/mm3 (4.2-5.4); White Blood Count 6.6 K/mm3 (4.4-11.0)
[2019-05-20 09:27] LABS: Anion Gap 8 (5-15); BUN 17 mg/dL (7-18); BUN/Creat Ratio 17.3 RATIO (10-20); Calcium,Total 9.7 mg/dL (8.5-10.1); Chloride 110 mmol/L (98-107); Creatinine, Serum 0.98 mg/dL (0.55-1.02); EST Glomerular Filtration Rate 59 mL/min (>60); Est Glom Filt Rate - Afr Amer 72 mL/min (>60); Glucose 152 mg/dL (74-106); Potassium 4.5 mmol/L (3.5-5.1); Sodium Level 141 mmol/L (136-145)
[2019-05-20 10:12] LABS: Mucous, Urine 0 SEEN /hpf (<or=2+); Red Blood Cells-Urine 0 SEEN /hpf (0-5)
[2019-05-20 10:14] LABS: Color, Urine Straw (Yellow); Glucose, Dipstick Normal (Normal); Ketone-Dipstick Negative (Negative); Leukocyte Esterase-Dipstick 100 /ul (Negative); Nitrite-Dipstick Negative (Negative); Occult Blood-Urine Negative /ul (Negative); Protein-Dipstick 15 mg/dl (Negative); Specific Gravity, Urine 1.015 (1.002-1.030); Urine Bilirubin Dipstick Negative (Negative); Urine Clarity Sl. Cloudy (Clear); Urine Urobilinogen Normal (Normal); Urine pH 6.5 (5.0 - 8.0)
[2019-05-20 10:20] LABS: Bacteria 1+ /hpf (None Seen); Squamous Epithelial Cells - UA 0-5 SEEN /hpf (5-10); White Blood Cells 10-25 SEEN /hpf (0-5)
[2019-05-20 11:00] VITALS: BP 127/73; BP 132/79; BP 138/76; PULSE 60; PULSE 65; PULSE 68
--- NOTE | 2019-05-20 11:38 | CM.ED ---
SOCIAL WORK INFORMANT: DR. RUBALCAVA REASON FOR REFERRAL: D/C PLANNING, PATIENT WORRIED ABOUT HOME GOING. LIVING SITUATION: PATIENT LIVES HOME ALONE AND REPORTS HAS BEEN STAYING WITH DAUGHTER 2-3X/WEEK PRIOR LEVEL OF FUNCTIONING: PATIENT STATES IS NORMALLY INDEPENDENT. DAUGHTER ASSISTS WITH TRANSPORTATION, GROCERY SHOPPING, AND FINANCES. MENTAL HEALTH HISTORY: PATIENT REPORTS RECENTLY LOST IN NOVEMBER 2018. PATIENT STATES HAS BEEN DOING BEREAVEMENT COUNSELING THROUGH HOSPICE WITH KIRSTY CAVAZOS. PATIENT DENIES ANY FURTHER COUNSELING NEEDS. ASSESSMENT: MET WITH PATIENT IN ROOM. INTRODUCED ROLE AND REASON FOR REFERRAL. PATIENT STATES IS FEELING MUCH BETTER NOW AND REPORTS I WAS PANICKED WHEN I FIRST CAME IN. PATIENT REPORTS HAS BEEN DIAGNOSED WITH UTI AND WILL BE GIVEN AN ANTIBIOTIC. PATIENT STATES FEELS SAFE GOING HOME AND WILL STAY WITH DAUGHTER IF NEEDED. PATIENT DENIES ANY NEEDS OR RESOURCES. UPDATED DR. RUBALCAVA AND PATIENT'S NURSEELVIS ON THE ABOVE. 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
--- NOTE | 2019-05-20 11:55 | ED.DEP ---
ED Disposition - Plan for ED Patient: Instructions: DIZZINESS, Unk Cause, Understanding Urinary Tract Infections (UTIs) Prescriptions: Nitrofurantoin Macrocrystals [Macrobid] 100 mg PO Q12 #14 capsule Referrals: Davon Calzada MD [Primary Care Provider] -
[2019-05-20] MEDS: Nitrofurantoin Macrocrystals 100 MG Capsule PO (12:12)
[2019-05-20 12:13] VITALS: BP 136/75; PULSE 60; RESP 15; TEMP 36.6; O2SAT 97
== END 2019-05-20 12:40 | disposition home or self-care (01) ==
PROVIDERS: Emergency Provider Emergency Medicine; Family Provider Internal Medicine; PCP Internal Medicine; Referring Provider Internal Medicine Cardiovascular Disease
DX: N39.0 Urinary tract infection, site not specified (principal); R42 Dizziness and giddiness; R19.7 Diarrhea, unspecified; R51 Headache; J45.909 Unspecified asthma, uncomplicated; K21.9 Gastro-esophageal reflux disease without esophagitis; E11.9 Type 2 diabetes mellitus without complications; I10 Essential (primary) hypertension; E78.00 Pure hypercholesterolemia, unspecified; I48.91 Unspecified atrial fibrillation; Z95.2 Presence of prosthetic heart valve; Z95.0 Presence of cardiac pacemaker; Z79.84 Long term (current) use of oral hypoglycemic drugs; Z79.899 Other long term (current) drug therapy
CPT/HCPCS: 70450; 71045; 80048; 81001; 84484; 85025; 87077; 87086; 87088; 93005; 96360; 99285; J7030; A4216

== ENCOUNTER 2019-08-06 14:49 | Emergency (ER) | payer MEDICARE, SELFPAY ==
[2019-06-09 13:01] VITALS: BMI 26.6
[2019-08-06 14:50] VITALS: BP 172/82; PULSE 60; RESP 19; TEMP 36.9; O2SAT 99; BMI 28.3
--- NOTE | 2019-08-06 15:21 | EKG12_ITS ---
Test Reason : CP Blood Pressure : / mmHG Vent. Rate : 060 BPM Atrial Rate : 060 BPM P-R Int : 252 ms QRS Dur : 160 ms QT Int : 452 ms P-R-T Axes : 031 -57 122 degrees QTc Int : 452 ms Atrial-paced rhythm with prolonged AV conduction Left axis deviation Left bundle branch block Abnormal ECG Confirmed by ODETTE RASCON, BENTLEY ([id number]), food expeditor ABIDA DONATO ([id number]) on 08/09/2019 8:46:35 AM Referred By: TOSHIA Confirmed By:BENTLEY PINO MD
--- NOTE | 2019-08-06 15:23 | RAD_ITS ---
STUDY: X-RAY CHEST REASON FOR EXAM: Female, 69 years old. CHEST PAIN WITH SOB TECHNIQUE: AP COMPARISON: None. FINDINGS: EKG leads project over the chest. Two lead cardiac conduction device is seen via the left subclavian vein with lead tips projecting over the right atrium and right ventricle, respectively. Sternal wires and mediastinal surgical clips compatible with prior CABG. Left hemidiaphragm is elevated with minimal scarring in the left lung base. There is no demonstrated pleural abnormality. Normal size heart. Normal mediastinum and rosalinda. Normal visualized pulmonary arteries. There is atherosclerotic tortuosity of the aortic arch and descending thoracic aorta. No acute bony process. There is no demonstrated abnormality of the visualized soft tissue structures of the upper abdomen. RAD/Chest 1 View (Portable) IMPRESSION: 1. No airspace consolidation or pleural effusion. Electronically Signed: Vicente York MD (Brooks) at 15:38 EST , Service support ,
[2019-08-06 15:33] LABS: Absolute Lymphocyte Count 1.54 X10^3/uL (0.83-4.51); Absolute Neutrophil Count 6.4 X10^3/uL (2.0-7.7); Basophil# 0.06 X10^3/uL; Basophil% 0.7 % (0-1); Eosinophil# 0.14 X10^3/uL; Eosinophils% 1.6 % (0-5); Hematocrit 40.8 % (37-47); Hemoglobin 13.1 g/dL (12.0-15.0); Lymphocyte # 1.54 X10^3/ul (4.0); Lymphocyte % 17.5 % (19-41); Mean Corp Hgb Conc 32.1 g/dL (32-36); Mean Corpuscular Hgb 29.3 pg (27.0-32.0); Mean Corpuscular Volume 91.3 fL (81-99); Mean Platelet Vol. 11.1 fl (6.2-12.0); Monocyte# 0.59 X10^3/uL; Monocyte% 6.7 % (0-10); NRBC Flagged by Analyzer 0 % (0-5); Neutrophil # 6.43 X10^3/uL (2.7-7.7); Neutrophil % 73.3 % (47-70); Platelet Count 181 K/mm3 (150-450); RBC Distribution Width CV 14.1 % (11.6-14.6); Red Blood Count 4.47 M/mm3 (4.2-5.4); White Blood Count 8.8 K/mm3 (4.4-11.0)
[2019-08-06 15:49] LABS: Anion Gap 4 (5-15); BUN 20 mg/dL (7-18); BUN/Creat Ratio 16.8 RATIO (10-20); Calcium,Total 9.6 mg/dL (8.5-10.1); Chloride 115 mmol/L (98-107); Creatinine, Serum 1.19 mg/dL (0.55-1.02); EST Glomerular Filtration Rate 47 mL/min (>60); Est Glom Filt Rate - Afr Amer 57 mL/min (>60); Estimated Creatinine Clearance 42.17 ml/min; Glucose 109 mg/dL (74-106); Potassium 4.2 mmol/L (3.5-5.1); Sodium Level 142 mmol/L (136-145)
[2019-08-06 15:54] VITALS: BP 139/98; PULSE 60; RESP 14; O2SAT 99
[2019-08-06 16:08] VITALS: BP 121/72; PULSE 60; RESP 16; O2SAT 98
--- NOTE | 2019-08-06 16:15 | ED.VISSUMM ---
- ER Visit Summary Date of Service: 08/06/19 Chief Complaint: Chest pain History of Present Illness: The patient is a 69 F who presents with chest pain. It stared earlier today. She describes a tightness lower part of her sternum. It does not radiate. She has had intermittent shortness of breath. This pain is also intermittent. Nothing makes her symptoms better or worse. She denies any stents in her heart. She has a history of A. fib and has a pacemaker in place. Denies taking any blood thinning medications. Physical Examination: Vital signs reviewed. HEENT exam unremarkable. Heart is regular rate and rhythm without murmurs. Lungs are clear to auscultation. Her chest is tender in the lower sternal area and this reproduces the pain that she is feeling. Abdomen is soft and nontender. Extremities reveal no edema. Peripheral pulses are equal. Skin exam normal. Neurologic exam normal. Test Results: EKG is paced with no ST changes. Labs are unremarkable except for creatinine of 1.15 and chloride of 115. Chest x-ray unremarkable. Emergency Department Course and Treatment: Patient was given aspirin by EMS. The patient's work-up is negative. Her pain is reproducible. I do not feel that this is cardiac in nature. Patient will be discharged to take Tylenol for pain at home. She will call her casting molder for follow-up Treatment Plan: [] Disposition: Discharge Impression: Chest pain This note was generated with [employer] dictation software. It may contain incorrect words, spelling, and punctuation that were not noted in review of the chart prior to signing ED Disposition - Plan for ED Patient: Referrals: Davon Calzada MD [Primary Care Provider] -
--- NOTE | 2019-08-06 16:18 | ED.DEP ---
ED Disposition - Plan for ED Patient: Disposition: Home or Assisted Living Instructions: CHEST WALL PAIN, Costochondritis Referrals: Davon Calzada MD [Primary Care Provider] -
[2019-08-06 16:28] VITALS: BP 148/78; PULSE 60; RESP 16; O2SAT 98
== END 2019-08-06 16:28 | disposition home or self-care (01) ==
PROVIDERS: Emergency Provider Emergency Medicine; Family Provider Internal Medicine; PCP Internal Medicine
DX: R07.89 Other chest pain (principal); R06.00 Dyspnea, unspecified; I48.91 Unspecified atrial fibrillation; J45.909 Unspecified asthma, uncomplicated; K21.9 Gastro-esophageal reflux disease without esophagitis; E11.9 Type 2 diabetes mellitus without complications; I10 Essential (primary) hypertension; Z95.0 Presence of cardiac pacemaker; Z95.2 Presence of prosthetic heart valve; Z79.84 Long term (current) use of oral hypoglycemic drugs; Z79.899 Other long term (current) drug therapy
CPT/HCPCS: 71045; 80048; 84484; 85025; 93005; 99285; A4216

== ENCOUNTER 2019-09-07 11:01 | Day surgery (SDC) | payer MEDICARE, SELFPAY ==
[2019-09-07 11:32] VITALS: BP 172/76; PULSE 60; RESP 16; TEMP 37; O2SAT 99; BMI 25.9
[2019-09-07 11:35] LABS: Bedside Glucose 137 mg/dL (70-110)
[2019-09-07] MEDS: Lactated Ringers 1,000 ML 100 ML IV (11:37)
--- NOTE | 2019-09-07 11:56 | HP.PCM_ITS ---
History and Physical Date of Admission: 09/07/19 Clari Dalton a 69 year old female who is a consultation requested by Dr. Calzada for an opinion regarding a positive ifobt. My final recommendations will be communicated back to the requesting physician by way of shared Medical record. The patient has not been seen previously. The patient denies a family history of colon cancer. ? The patient has a history of aortic valve replacement for non-rheumatic aortic stenosis, as well as a pacemaker (01/07/19) due to a-fib, SA node dysfunction /sick sinus syndrome. She underwent nuclear stress test 01/06/19. She sees [facility]. History also includes HTN, DM type 2, asthma,and GERD. ? Component Latest Ref Rng & Units 06/10/2019 WBC 3.70 - 11.00 k/uL 6.10 RBC 3.90 - 5.20 m/uL 4.37 Hemoglobin 11.5 - 15.5 g/dL 12.8 Hematocrit 36.0 - 46.0 % 40.9 MCV 80.0 - 100.0 fL 93.6 MCH 26.0 - 34.0 pG 29.3 MCHC 30.5 - 36.0 g/dL 31.3 RDW-CV 11.5 - 15.0 % 14.6 Platelet Count 150 - 400 k/uL 192 MPV 9.0 - 12.7 fL 11.5 Absolute nRBC <0.01 k/uL <0.01 ? Component Latest Ref Rng & Units 06/21/2019 Occult Blood, Stool Negative Positive (A) ? Component Latest Ref Rng & Units 06/10/2019 Glucose 74 - 99 mg/dL 128 (H) BUN 7 - 21 mg/dL 15 Creatinine 0.58 - 0.96 mg/dL 0.90 Sodium 136 - 144 mmol/L 142 Potassium 3.7 - 5.1 mmol/L 4.2 Chloride 97 - 105 mmol/L 108 (H) CO2 22 - 30 mmol/L 23 Anion Gap 9 - 18 mmol/L 11 Calcium 8.5 - 10.2 mg/dL 9.9 eGFR- ? >60 eGFR-All Other Races . >60 Hemoglobin A1C 4.3 - 5.6 % 5.9 (H) Estimated Average Glucose mg/dL 123 ? ? Presenting complaint: The patient denies change in bowel habits, rectal bleeding or abdominal pain. Having a bowel movement once or twice a day. ? Taking ranitidine for a couple years. No heartburn or indigestion as long as she takes that. ? REVIEW OF SYSTEMS: GENERAL: No weight loss, malaise or fevers RESPIRATORY: Asthma. Recent shortness of breath- using rescue inhaler. No cough. CARDIOVASCULAR: Pacemaker. Paroxysmal A fib, HTN and HLD. GI: The patient states that her appetite has been good. She does get hungry. There has been no nausea, no vomiting. She denies dysphagia and denies odynophagia. There has not been indigestion or heartburn. There has not been regurgitation. Bowel habits have been regular. There has occasionally been diarrhea. There has occasionally been constipation. She will take 1/2 glass of prune juice with good relief.The patient denies rectal bleeding. There has not been melena. No abdominal pain. DIRECTOR PATIENT FINANCIAL SERVICES: Negative for abnormal vaginal bleeding, abnormal vaginal discharge. MUSCULOSKELETAL: Back pain - PSYCH: Negative for sleep disturbance, mood disorder and recent psychosocial stressors. HEMATOLOGY/LYMPHOLOGY Negative for prolonged bleeding, bruising easily or swollen nodes ENDOCRINE: No diabetes or thyroid. NEURO: No history of headaches, syncope, paralysis, seizures or tremors All other reviewed and negative other than HPI. ? ? PAST MEDICAL HISTORY ? AORTIC VALVE DISORDER 12/03/2005 ? Oneal 12-03-05: ECG showed SB, no LVH-rec Echo to consider bicupsid AV Echo 03-09: LA 42 mm, 61%, mild LVH, mod-severe calcific -orifice 1.1 cm2, 1+ TR, RVSP 31 Go 02-07: rec repeat Echo in 6 mo (reordered in 01-09 as pt did not do test) Echo 02-08: 65%, LVH, trivial MR, RVSP 24, mod-sev of 1 cm2 ? ASTHMA UNSPECIFIED 07/12/2007 ? Amoxil 01-05 and Ketek 08-08 for URI Singulair and Albuterol started in 04-07 Rec OTC antihistamine for eye symptoms as of 01-09 ? Carpal tunnel syndrome 06/17/2007 ? Recommended Naprosyn and Flexeril as of 03-09 [facility]: rec stopping in 06-09 Responding well to wrist splints as of 06-09 and wt loss as of 07-09 ? HYPERLIPIDEMIA NEC/NOS 06/17/2007 ? Zocor in 01-05 and Lipitor as of 04-09 LDL 100, HDL 36, TG 186 in 05-08 LDL 84, HDL 36, TG 140 in 11-08 Changed to Pravastatin 40 mg in 10-09 LDL 112, HDL 38, TG 136 in 01-09 ? HYPERTENSION NOS 06/17/2007 ? Lisinopril started about 12-05 Creat 0.9 in 05-08, 07-10, 01-09 UA negative for protein and blood in 01-09 ? Impaired fasting glucose 03/04/2010 ? Lichen planus 03/09/2014 ? Vulva ? PNEUMONIA, ORGANISM NOS 06/08/2008 ? Lingular infiltrate by CXR, WBC 11 K in 03-10: need to repeat for clearing (pt had pneumonia clinically) CXR 06-10 showed partial resolution of the left lingular infiltrate: scheduled pt as need to consider CT given timeframe CT in 07-10: atelec vs scar vs infiltrate (unlikely given clinical improvement), no JEWEL (notified by phone 08-02-08) ? S/P aortic valve replacement 03/03/2013 ? Type II or unspecified type diabetes mellitus without mention of complication, not stated as uncontrolled 04/15/2013 ? PAST SURGICAL HISTORY ? BREAST BIOPSY W/STEREOTACTIC GUIDANCE Left 12/25/2016 ? Microcalcifications-benign ? PILONIDAL CYST/SINUS EXCISION ? 1950s ? REMOVAL OF TONSILS,<12 Y/O ? 1950s ? Tonsillectomy ? REPLAC AORT VALV PROSTH VALV ? 01/25/2013 ? Aortic valve replacement, [place] FAMILY HISTORY ? Diabetes Mother ? ? alive age 86 2010 ? Hypertension Mother ? ? Heart Mother ? ? pacemaker ? Cancer Father ? ? lymphoma? dec. age 60s CURRENT MEDICATIONS ? Blood Pressure Monitor kit Use to monitor blood pressure as directed. 1 Kit 0 ? albuterol HFA (PROVENTIL HFA) 90 mcg/actuation inhaler Inhale 2 Puffs as instructed every 6 hours as needed for Wheezing/Shortness of Breath. ? ? ? Cholecalciferol, Vitamin D3, 2,000 unit cap Take 1 capsule by mouth once daily. ? ? ? metFORMIN (GLUCOPHAGE) 500 mg tablet TABLET BY MOUTH EVERY DAY WITH BREAKFAST 90 tablet 1 ? pravastatin (PRAVACHOL) 40 mg tablet Take 1 tablet by mouth daily at bedtime. 90 tablet 1 ? lisinopril (ZESTRIL, PRINIVIL) 5 mg tablet Take 1 tablet by mouth once daily. 90 tablet 1 ? sotalol (BETAPACE) 80 mg tablet Take 1 tablet by mouth twice daily. ? ? ? ranitidine (ZANTAC) 150 mg tablet Take 1 tablet by mouth twice daily. 180 tablet 3 ? fluticasone-vilanterol (BREO ELLIPTA) 200-25 mcg/dose inhaler Inhale 1 Inhalation as instructed once daily. Inhale one puff once daily. () ? 0 ? blood sugar diagnostic (CONTOUR TEST STRIPS) test strip Test blood sugar(s) 2 times daily. Dx: 250.00. Insulin: No 100 Strip 2 ? ? ? SOCIAL HISTORY: Patient is . She has never smoked and reports her alcohol use as never. ? ? PHYSICAL EXAMINATION: Blood pressure 134/82, pulse 63, weight 76.7 kg (169 lb), SpO2 98 %. General Appearance: Well appearing, alert, in no acute distress, well-hydrated, well nourished. Skin: Skin color, texture, turgor normal, no suspicious rashes or lesions. Head: Normocephalic, no masses, lesions or abnormalities. Eyes: Anicteric sclera. Oropharynx: Lips, mucosa, and tongue normal, oropharynx normal. Neck: Supple, no adenopathy; thyroid symmetric, normal size. Lungs: lungs clear to auscultation. No wheezing, rhonchi, rales. Heart: RRR without murmur. Abdomen: Abdomen soft, non-tender. Bowel sounds normal. No masses, organomegaly. Extremities: No deformities, edema, skin discoloration, clubbing or cyanosis. Good capillary refill. Peripheral Pulses: Normal. Neurologic: Gait normal. Sensation grossly intact. ? ?Impression: positive ifobt No anemia ? ? Plan: This patient will be scheduled for a colonoscopy using Miralax and Dulcolax as the prep. The preparation, as well as the procedure, has been explained in detail. The risks, benefits, anticipated outcomes and possible complications, including failure to complete the endoscopy and perforation, were mentioned. ?I explained the procedure in understandable terms and the patient was given printed material concerning the planned procedure. The patient had the opportunity to ask questions concerning the planned procedure. The patient freely consents to the planned procedure. ? The patient is asked to call with any questions for concerns, or should there be any change in health status between now and the scheduled procedure. ? ? Susie Hart RN FABRICATION DEPARTMENT SUPERVISOR.PC INSTALLATION ENGINEER
[2019-09-07 12:23] VITALS: BP 113/68; BP 172/76; PULSE 60; RESP 16; TEMP 36.8; O2SAT 98
--- NOTE | 2019-09-07 12:27 | OP.CCLET_ITS ---
09/07/2019 Davon Calzada [address] [place] [address] Re : Colonoscopy procedure for Clari Dalton Dear Dr. Calzada This procedure was performed on Saturday, September 07, 2019. My impressions and recommendations are as follows: Impressions : - Non-bleeding external and internal hemorrhoids. - No specimens collected. Recommendations : - Repeat colonoscopy in 10 years for screening purposes. - Return to primary care physician PRN. - Continue present medications. My findings are described in the full procedure note, which is enclosed. If I can be of further assistance, please feel free to contact me at Doctor phone number(s): , Work: . Sincerely, MD Radha Duran MD 09/07/2019 12:26:49 PM This report has been signed electronically.
--- NOTE | 2019-09-07 12:27 | OP.COLON_ITS ---
Patient Name: Clari Dalton Procedure Date: 09/07/2019 11:16 AM Date of : 1950 Age: 69 Procedure: Colonoscopy Indications: Heme positive stool Providers: Radha Silvestre MD Referring MD: Davon Calzada Medicines: See the Anesthesia note for documentation of the administered medications Patient Profile: Refer to note in patient chart for documentation of history and physical. Last Colonoscopy: date unknown. Complications: No immediate complications. Procedure: Pre-Anesthesia Assessment: - see anesthesia note After I obtained informed consent, the scope was passed under direct vision. Throughout the procedure, the patient's blood pressure, pulse, and oxygen saturations were monitored continuously. The pediatric colonoscope was introduced through the anus and advanced to the cecum, identified by appendiceal orifice and ileocecal valve. The colonoscopy was performed without difficulty. The patient tolerated the procedure well. The quality of the bowel preparation was adequate. Scope In: 12:03:43 PM Scope Withdrawal Time 0 hours 11 minutes 27 seconds Scope Out: 12:20:43 PM Total Procedure Duration Time 0 hours 17 minutes 0 seconds Findings: The perianal and digital rectal examinations were normal. Pertinent negatives include normal sphincter tone. Non-bleeding external and internal hemorrhoids were found. Impression: - Non-bleeding external and internal hemorrhoids. - No specimens collected. Recommendation: - Repeat colonoscopy in 10 years for screening purposes. - Return to primary care physician PRN. - Continue present medications. Procedure Code(s): --- Professional --- 30436, Colonoscopy, flexible; diagnostic, including collection of specimen(s) by brushing or washing, when performed (separate procedure) Diagnosis Code(s): --- Professional --- K64.8, Other hemorrhoids R19.5, Other fecal abnormalities CPT copyright 2017 [employer]. All rights reserved. The codes documented in this report are preliminary and upon manager battery review may be revised to meet current compliance requirements. MD Radha Duran MD 09/07/2019 12:26:49 PM This report has been signed electronically. Number of Addenda: 0 Note Initiated On: 09/07/2019 11:16 AM
[2019-09-07 12:28] VITALS: BP 129/68; BP 172/76; PULSE 60; RESP 16; O2SAT 100
[2019-09-07 12:30] VITALS: BP 132/69; BP 172/76; PULSE 60; RESP 16; O2SAT 100
[2019-09-07 12:40] VITALS: BP 133/77; BP 172/76; PULSE 60; RESP 16; TEMP 37.5; O2SAT 100
[2019-09-07 13:15] VITALS: BP 172/76
== END 2019-09-07 13:18 | disposition home or self-care (01) ==
LOC: EN 11:01 → AC 11:03
PROVIDERS: PCP Internal Medicine; Referring Provider Internal Medicine; Visit Provider Surgery
PROC: 0DJD8ZZ Inspection of Lower Intestinal Tract, Via Natural or Artificial Opening Endoscopic (ICD-10-PCS; CPT 45378; principal; 2019-09-07 11:55)
DX: R19.5 Other fecal abnormalities (principal); K64.8 Other hemorrhoids; K64.4 Residual hemorrhoidal skin tags; I49.5 Sick sinus syndrome; I48.91 Unspecified atrial fibrillation; J45.909 Unspecified asthma, uncomplicated; I10 Essential (primary) hypertension; E11.9 Type 2 diabetes mellitus without complications; K21.9 Gastro-esophageal reflux disease without esophagitis; E78.00 Pure hypercholesterolemia, unspecified; Z78.0 Asymptomatic menopausal state; Z87.01 Personal history of pneumonia (recurrent); Z95.2 Presence of prosthetic heart valve; Z79.84 Long term (current) use of oral hypoglycemic drugs; Z79.899 Other long term (current) drug therapy
CPT/HCPCS: 45378; 82962; J7120; J3490

== ENCOUNTER → 2019-12-08 08:08 | Outpatient (CLI) | payer MEDICARE, SELFPAY ==
[2019-06-09 13:01] VITALS: BMI 26.6
[2019-11-14 11:16] VITALS: BMI 25.9
--- NOTE | 2019-12-09 11:26 | PFT ---
INTRODUCTION: The patient is a 69-year-old female that presents for pulmonary function studies secondary to a diagnosis of asthma. Respiratory therapy reports good patient effort. Bronchodilators were used during testing. INTERPRETATION: Forced expiration spirometry demonstrates the presence of a moderate large airways obstructive ventilatory defect. There was a significant response to aerosolized bronchodilators noted. Spirograms are of good quality and plateau gradually indicating slow emptying of the lungs. Body plethysmography was performed and revealed a decreased TLC to 65% of predicted, indicative of a moderate restrictive ventilatory impairment. The remainder of the lung volumes are symmetrically reduced. Diffusing capacity by single breath CO is reduced at 53% of predicted. When compared to previous pulmonary function studies from October 2018 there has been a 14% reduction in FEV1, 29% reduction in TLC and 24% reduction in DLCO. IMPRESSION: Partially reversible moderate mixed ventilatory defect with symmetric reduction in diffusing capacity. There has been significant worsening in the patient's PFTs since October 2018, as noted above.
== END ==
PROVIDERS: Family Provider Internal Medicine; PCP Internal Medicine; Referring Provider Internal Medicine Critical Care Medicine; Visit Provider Internal Medicine Critical Care Medicine
DX: J45.909 Unspecified asthma, uncomplicated (principal)
CPT/HCPCS: 94060; 94726; 94729

== ENCOUNTER → 2019-12-20 12:54 | Outpatient (CLI) | payer MEDICARE, SELFPAY ==
[2019-11-14 11:16] VITALS: BMI 25.9
[2019-12-15 09:28] LABS: Hemoglobin 12.3 g/dL (12.0-15.0); Mean Corp Hgb Conc 33.2 g/dL (32-36); Mean Corpuscular Hgb 31.1 pg (27.0-32.0); Mean Corpuscular Volume 93.4 fL (81-99); Mean Platelet Vol. 11.5 fl (6.2-12.0); Platelet Count 173 K/mm3 (150-450); RBC Distribution Width CV 14.8 % (11.6-14.6); RBC Distribution Width SD 50.6 fl (35.1-43.9); Red Blood Count 3.96 M/mm3 (4.2-5.4)
[2019-12-15 09:57] LABS: Anion Gap 7 (5-15); BUN 18 mg/dL (7-18); BUN/Creat Ratio 18.8 RATIO (10-20); Calcium,Total 9.5 mg/dL (8.5-10.1); Chloride 110 mmol/L (98-107); Creatinine, Serum 0.96 mg/dL (0.55-1.02); EST Glomerular Filtration Rate 61 mL/min (>60); Est Glom Filt Rate - Afr Amer 74 mL/min (>60); Glucose 126 mg/dL (74-106); Potassium 3.7 mmol/L (3.5-5.1); Sodium Level 144 mmol/L (136-145)
[2019-12-15 10:18] LABS: BNP,B-Type NATRIURETIC PEPTIDE 343.2 pg/mL (0-100)
--- NOTE | 2019-12-20 12:55 | ECHOD_ITS ---
Reason For Study: DYSPNEA Procedure This was a 2D Doppler, Color Flow transthoracic echocardiogram. Exam performed in department. Left Ventricle Normal LV size. Sigmoid septum. Left ventricular systolic function is normal. The estimated ejection fraction is 60 %. Diastolic function is indeterminate. No regional wall motion abnormalities noted. Right Ventricle Normal RV size. Normal systolic function. Atria The left atrium is mildly enlarged. The right atrium is mildly enlarged. No doppler evidence for ASD. Mitral Valve There is moderate mitral annular calcification. Extension of the mitral annular calcification onto the base of the posterior mitral valve leaflet. Anterior leaflet diffuse mitral valve thickening. Mild (1+) mitral valve insufficiency. Tricuspid Valve Normal tricuspid valve. Moderate (2+) tricuspid valve insufficiency. Right ventricular systolic pressure estimated to be 25 mmHg. Aortic Valve Moderate aortic stenosis. Stable appearing bioprosthetic aortic valve apparatus. Pulmonic Valve The pulmonic valve is not well visualized. Mild (1+) pulmonic valve insufficiency. Great Vessels Borderline dilated ascending aorta. Pericardium/Pleural No pericardial effusion. MMode/2D Measurements & Calculations LVIDd: 4.2 cm IVSd: 1.3 cm LVOT diam: 2.0 cm LVIDs: 3.0 cm LVPWd: 1.1 cm LVOT area: 3.0 cm2 RVDd: 3.5 cm FS: 27.3 % Ao root diam: 3.9 cm LAV(MOD-bp): 64.0 ml LVAd ap4: 26.8 cm2 LAV(MOD-bp) Indexed: 33.1 ml/m2 EDV(MOD-sp4): 87.2 ml LAV(MOD-sp2): 59.2 ml EDV(sp4-el): 88.9 ml LAV(MOD-sp4): 66.0 ml LVAs ap4: 15.6 cm2 ESV(MOD-sp4): 37.6 ml ESV(sp4-el): 36.7 ml EF(MOD-sp4): 56.8 % EF(sp4-el): 58.7 % SV(MOD-sp4): 49.5 ml SV(sp4-el): 52.2 ml LA A4 area: 20.6 cm2 LA dimension(2D): 4.4 cm RA A4 area: 19.3 cm2 Time Measurements MV dec time: 0.26 sec Doppler Measurements & Calculations MV E max dez: 83.3 cm/sec Lat Peak E' Dez: 5.6 cm/sec Med Peak E' Dez: 4.5 cm/sec MV A max dez: 106.7 cm/sec E/E' lat: 14.8 E/E' med: 18.4 MV E/A: 0.78 MV V2 max: 98.5 cm/sec Ao V2 max: 378.1 cm/sec LV V1 max: 130.2 cm/sec MV max P.9 mmHg Ao max P.3 mmHg LV V1 max P.8 mmHg MV V2 mean: 57.2 cm/sec Ao V2 mean: 278.2 cm/sec LV V1 mean P.3 mmHg MV mean P.5 mmHg Ao mean P.1 mmHg LV V1 mean: 99.9 cm/sec MV V2 VTI: 35.9 cm Ao V2 VTI: 73.7 cm LV V1 VTI: 26.0 cm MVA(VTI): 2.2 cm2 SPENCER(I,D): 1.1 cm2 SPENCER(V,D): 1.0 cm2 SV(LVOT): 79.1 ml PA V2 max: 103.8 cm/sec PI end-d dez: 58.0 cm/sec TR max dez: 235.8 cm/sec MV P1/2t-pr_phl: 129.3 msec TR max P.3 mmHg Interpretation Summary Left ventricular systolic function is normal. The estimated ejection fraction is 60 %. Sigmoid septum. The left atrium is mildly enlarged. The right atrium is mildly enlarged. There is moderate mitral annular calcification. Extension of the mitral annular calcification onto the base of the posterior mitral valve leaflet. Anterior leaflet diffuse mitral valve thickening. Mild (1+) mitral valve insufficiency. Moderate (2+) tricuspid valve insufficiency. Stable appearing bioprosthetic aortic valve apparatus. Moderate aortic stenosis. Mild (1+) pulmonic valve insufficiency. Borderline dilated ascending aorta. Right ventricular systolic pressure estimated to be 25 mmHg. Diastolic function is indeterminate. Ordering Physician: Ori Torres Referring Physician: Davon Calzada M.D. Performed By: Meredith Nelson, CIERA, RVT
--- NOTE | 2019-12-20 13:54 | RAD_ITS ---
STUDY: X-RAY CHEST REASON FOR EXAM: Female, 69 years old. SOB TECHNIQUE: PA and lateral views of the chest. COMPARISON: Portable AP upright chest x-ray August 06, 2019. FINDINGS: Left chest wall/left subclavian dual-lead cardiac pacemaker is unchanged. There is improved aeration at the left base. No new infiltrate. There is no demonstrated pleural abnormality. Normal size heart. Sternal cerclage wires and vascular clips are present from a prior sternotomy and coronary artery bypass graft procedure (CABG). Normal mediastinum and rosalinda. Normal visualized pulmonary arteries. Normal visualized aortic arch and descending thoracic aorta. There are stable degenerative changes of the visualized thoracic spine. Normal visualized ribs, clavicles, and shoulders. There is no demonstrated abnormality of the visualized soft tissue structures of the upper abdomen. RAD/Chest PA and Lateral IMPRESSION: 1. Improved aeration of the left base. No acute pneumonic infiltrate. 2. Prior median sternotomy and CABG as well as dual lead cardiac pacemaker again noted. No CHF. Electronically Signed: Nathaniel Flores MD at 14:12 EDT , Service support ,
== END ==
LOC: CVS 12:55
PROVIDERS: PCP Internal Medicine; Referring Provider Internal Medicine Cardiovascular Disease; Visit Provider Internal Medicine Cardiovascular Disease
DX: R06.00 Dyspnea, unspecified (principal); R06.02 Shortness of breath; I10 Essential (primary) hypertension; I35.0 Nonrheumatic aortic (valve) stenosis; Z95.3 Presence of xenogenic heart valve; E11.9 Type 2 diabetes mellitus without complications; I48.0 Paroxysmal atrial fibrillation; R00.1 Bradycardia, unspecified; J45.40 Moderate persistent asthma, uncomplicated
CPT/HCPCS: 36415; 71046; 80048; 83735; 83880; 85027; 93306

== ENCOUNTER 2020-01-04 17:50 | Emergency (ER) | payer MEDICARE, SELFPAY ==
[2019-11-14 11:16] VITALS: BMI 25.9
[2020-01-04] VITALS (8 sets, daily range): BP systolic 134–175; BP diastolic 69–94; PULSE 60–62; RESP 11–18; TEMP 36.7; O2SAT 97–98; BMI 28.3
--- NOTE | 2020-01-04 18:24 | ED.DCSUM_ITS ---
History of Present Illness Chief Complaint: Chest Pain Informant: Patient, Relative Onset: Hours - 1 Activity at onset: - - reaching up into a kitchen cabinet w/ RUE Timing: Continuous Quality: Tightness Location: Left Chest - lower, and substernal, and into upper back between shoulder blades Current Severity: Mild Maximum Severity: Moderate Worsened By: Nothing. Not Worsened By: Movement of Arm, Movement of Torso, Breathing, Coughing Relieved By: Nothing Associated Symptoms: Dyspnea. Negative for: Nausea, Vomiting, Diaphoresis, Cough, Fever, Lightheadedness, Palpitations Narrative: Patient starts by saying that she has tightness in her chest all the time, since she had her aortic valve replaced. She was having a little more tightness and seasonal allergy type asthma symptoms earlier, she did some albuterol and it felt better. However, when she reached overhead about an hour prior to evaluation, into her kitchen cabinet, she use her right upper extremity and suddenly felt increased tightness and may be a sharp pain in her left inframammary area, radiating into her mid back. That pain has persisted. She felt short of breath with that as well. Denies a history of coronary disease. Had atrial fibrillation that responded well to sotalol, but she came bradycardic so she has a pacemaker, and aortic valve replacement, and does not take any antiplatelet or anticoagulants. - Past Medical History (1) Lichen planus Status: Chronic (2) Asthma Status: Chronic (3) Essential (primary) hypertension Status: Chronic (4) GERD (gastroesophageal reflux disease) Status: Chronic (5) HLD (hyperlipidemia) Status: Chronic (6) History of aortic valve replacement with bioprosthetic valve Status: Chronic Comment: Porcine (7) Non-rheumatic aortic stenosis Status: Chronic (8) Paroxysmal atrial fibrillation Status: Chronic (9) Presence of permanent cardiac pacemaker Status: Chronic (10) Seasonal allergies Status: Chronic (11) Sick sinus syndrome Status: Chronic (12) Type 2 diabetes mellitus Status: Chronic Past Medical History - Allergies and Home Meds Allergies/Adverse Reactions: Allergies Penicillins Allergy (Verified 01/04/20 17:55) Shortness of breath Primary Care Physician: Davon Calzada MD [Primary Care Provider] - 3-5 Days if not improving Surgical History: - - Tonsillectomy, aortic valve replacement with porcine valve, pilonidal cyst removal in use, cataract surgery bilaterally. Lives: Alone Smoking Status: Never smoker - Family History Maternal Family History: Family History (Last Reviewed 01/02/20 @ 08:58 by STEPHANY Christiansen) Mother Diabetes Aunt Breast cancer Father Cancer Family History: Reports: Diabetes Paternal Family History: Family History (Last Reviewed 01/02/20 @ 08:58 by STEPHANY Christiansen) Mother Diabetes Aunt Breast cancer Father Cancer Family History: Reports: Cancer Review of Systems General: Denies: Chills, Fever, Sweats Eyes: Denies: Visual changes - bilaterally, Diplopia ENT: Denies: Bilateral ear pain, Rhinorrhea, Sore throat Cardiovascular: Reports: Chest pain. Denies: Palpitations Respiratory: Reports: Dyspnea. Denies: Cough, Dyspnea on exertion Gastrointestinal: Denies: Abdominal pain, Nausea, Vomiting, Diarrhea, Melena, Hematochezia Genitourinary: Denies: Dysuria, Hematuria, Frequency Musculoskeletal: Reports: Back pain. Denies: Neck pain, Swelling, Extremity Pain Skin: Denies: Rash, Wounds Neurological: Denies: Headache, Weakness, Numbness Physical Exam Vital Signs/Narrative: Vital Signs Temp Pulse Resp BP Pulse Ox 01/04/20 17:54 98.0 F 62 18 175/94 H 98 01/04/20 17:52 98.0 F 62 18 175/94 H 98 Inital Vital Signs reviewed: Yes General: Well nourished, Well developed, Obese, No Acute Distress Head: Normocephalic, Atraumatic Eyes: Perrl, EOMI ENT: Moist mucous membranes, No rhinorrhea Neck: Supple, Nontender, No lymphadenopathy, No JVD Cardiovascular: Regular rate, Regular rhythm, No murmurs, Normal S1, Normal S2 Respiratory: No distress, CTA bilaterally, Chest nontender Abdomen: Soft, Nondistended, Normal bowel sounds, No masses, Tender - Mild, epigastric only. Negative for: Guarding, Rebound tenderness, Pulsatile mass Back: Nontender, Normal Inspection Extremities: Nontender, No edema. Negative for: Calf Tenderness Skin: Normal color, No rash, No Trauma Neurological: Alert, Oriented x3, Cranial nerves II-XII grossly intact, Normal Strength, Normal Sensation Psychological: Normal affect, Normal Mood Diagnostic/Tx/Re-eval Impressions Chest X-Ray 01/04/20 18:30 IMPRESSION: No acute cardiopulmonary findings Electronically Signed: Kris Araiza, at 18:55 EDT Tel , Service support , 01/04/20 18:30 Chest 1 View (Portable) [RAD] Stat Laboratory Results 01/04/20 01/04/20 18:10 18:10 WBC 7.3 RBC 4.09 L Hgb 12.2 Hct 38.7 MCV 94.6 MCH 29.8 MCHC 31.5 L RDW Std Deviation 50.6 H RDW Coeff of Yunior 14.6 Plt Count 185 MPV 11.5 Immature Gran % (Auto) 0.400 Neut % (Auto) 60.4 Lymph % (Auto) 26.3 [place] % (Auto) 8.9 Eos % (Auto) 3.2 Baso % (Auto) 0.8 Absolute Neuts (auto) 4.4 Absolute Lymphs (auto) 1.92 Nucleated RBC % 0 Sodium 145 Potassium 4.1 Chloride 113 H Carbon Dioxide 26.0 Anion Gap 6 BUN 20 H Creatinine 0.92 Estim Creat Clear Calc 54.54 Est GFR (MDRD) Af Amer 77 Est GFR (MDRD) Non-Af 64 BUN/Creatinine Ratio 21.6 H Glucose 123 H Calcium 9.4 Troponin I < 0.015 - Rhythm Strip Rhythm Strip: Atrial pacing Rate: 60 - EKG Initial EKG Interpretation: No Acute Injury Pattern, Paced Prior: Unchanged Treatment: Aspirin, NTG SL - a little improved; Repeat Eval: mild, persistent, pt comfortable EVE Risk: Age >/= 65, >/= 3RF Score: 2 - Medical Decision Making Patient has constant retrosternal tightness, it was made worse by reaching up over her shoulder. I suspect this is all related to scar tissue she has in her sternum from having open chest surgery for her valve replacement. She and daughter thinks it makes sense. I recommend given her risk factors, undergoing the heart pathway and performing a 3-hour delta troponin. I also offered admission. She prefers to undergo the delta troponin to go home if possible. Her heart score is 0,0,2,2,0 = 4. Under the circumstances, I think this is very reasonable. The second 3-hour troponin was 0 for a delta of 0. She is comfortable being discharged home and advised to follow-up closely, we discussed reasons to return. ED Disposition - Plan for ED Patient: Disposition: Home or Assisted Living Diagnosis: Atypical chest pain Instructions: ED Strain Chest Wall Referrals: Davon Calzada MD [Primary Care Provider] - 3-5 Days if not improving
--- NOTE | 2020-01-04 18:24 | EKG12_ITS ---
Test Reason : CHEST HEAVINESS Blood Pressure : / mmHG Vent. Rate : 060 BPM Atrial Rate : 060 BPM P-R Int : 254 ms QRS Dur : 156 ms QT Int : 458 ms P-R-T Axes : 066 -28 115 degrees QTc Int : 458 ms Atrial-paced rhythm with prolonged AV conduction Left bundle branch block Abnormal ECG Confirmed by REZA RASCON, KATINA ([id number]), story editor MAGALY STAHL ([id number]) on 01/06/2020 9:13:28 AM Referred By: MONROE Confirmed By:KATINA COBB MD
--- NOTE | 2020-01-04 18:30 | RAD_ITS ---
STUDY: X-RAY CHEST REASON FOR EXAM: Female, 69 years old. INTERMITTENT CHEST HEAVINESS X45 MIN, SOB TECHNIQUE: Single frontal view of the chest. COMPARISON: 12/20/2019. FINDINGS: Left cardiac device. Median sternotomy wires. There is nonspecific elevation of the left hemidiaphragm. Cardiac silhouette unremarkable. Pulmonary vascularity unremarkable. Aorta unremarkable. No focal airspace opacities. No pleural effusions. Left upper lobe granuloma. Upper abdomen unremarkable. Osseous structures intact. No pneumothorax. RAD/Chest 1 View (Portable) IMPRESSION: No acute cardiopulmonary findings Electronically Signed: Kris Araiza, at 18:55 EDT Tel , Service support ,
[2020-01-04] MEDS: Aspirin 81 MG TAB.CHEW 324 MG PO (18:31)
[2020-01-04] MEDS: Nitroglycerin SL (ED/IMG/CATH) 0.4 MG TABLET SUBLINGUAL (18:32)
[2020-01-04 18:43] LABS: Anion Gap 6 (5-15); BUN 20 mg/dL (7-18); BUN/Creat Ratio 21.6 RATIO (10-20); Calcium,Total 9.4 mg/dL (8.5-10.1); Chloride 113 mmol/L (98-107); Creatinine, Serum 0.92 mg/dL (0.55-1.02); EST Glomerular Filtration Rate 64 mL/min (>60); Est Glom Filt Rate - Afr Amer 77 mL/min (>60); Estimated Creatinine Clearance 54.54 ml/min; Glucose 123 mg/dL (74-106); Potassium 4.1 mmol/L (3.5-5.1); Sodium Level 145 mmol/L (136-145)
[2020-01-04 18:59] LABS: Absolute Lymphocyte Count 1.92 X10^3/uL (0.83-4.51); Absolute Neutrophil Count 4.4 X10^3/uL (2.0-7.7); Basophil# 0.06 X10^3/uL; Basophil% 0.8 % (0-1); Eosinophil# 0.23 X10^3/uL; Eosinophils% 3.2 % (0-5); Hematocrit 38.7 % (37-47); Hemoglobin 12.2 g/dL (12.0-15.0); Lymphocyte # 1.92 X10^3/ul (4.0); Lymphocyte % 26.3 % (19-41); Mean Corp Hgb Conc 31.5 g/dL (32-36); Mean Corpuscular Hgb 29.8 pg (27.0-32.0); Mean Corpuscular Volume 94.6 fL (81-99); Mean Platelet Vol. 11.5 fl (6.2-12.0); Monocyte# 0.65 X10^3/uL; Monocyte% 8.9 % (0-10); NRBC Flagged by Analyzer 0 % (0-5); Neutrophil # 4.41 X10^3/uL (2.7-7.7); Neutrophil % 60.4 % (47-70); Platelet Count 185 K/mm3 (150-450); RBC Distribution Width CV 14.6 % (11.6-14.6); RBC Distribution Width SD 50.6 fl (35.1-43.9); Red Blood Count 4.09 M/mm3 (4.2-5.4); White Blood Count 7.3 K/mm3 (4.4-11.0)
== END 2020-01-04 22:02 | disposition home or self-care (01) ==
PROVIDERS: Emergency Provider Emergency Medicine; PCP Internal Medicine
DX: R07.89 Other chest pain (principal); R06.00 Dyspnea, unspecified; E66.9 Obesity, unspecified; I10 Essential (primary) hypertension; K21.9 Gastro-esophageal reflux disease without esophagitis; E78.5 Hyperlipidemia, unspecified; I35.0 Nonrheumatic aortic (valve) stenosis; I48.0 Paroxysmal atrial fibrillation; I49.5 Sick sinus syndrome; E11.9 Type 2 diabetes mellitus without complications; J45.909 Unspecified asthma, uncomplicated; Z95.3 Presence of xenogenic heart valve; Z79.84 Long term (current) use of oral hypoglycemic drugs; Z79.899 Other long term (current) drug therapy
CPT/HCPCS: 71045; 80048; 84484; 85025; 93005; 99285

== ENCOUNTER 2020-01-14 20:08 | Emergency (ER) | payer MEDICARE, SELFPAY ==
[2020-01-04 17:52] VITALS: BMI 28.3
[2020-01-14 20:10] VITALS: BP 168/96; PULSE 60; RESP 13; RESP 16; TEMP 36.7; O2SAT 97; O2SAT 98; BMI 29.6
--- NOTE | 2020-01-14 20:24 | CT_ITS ---
STUDY: CT BRAIN WITHOUT CONTRAST REASON FOR EXAM: Female, 70 years old. DIZZINESS, vertigo. RADIATION DOSAGE (If Supplied By Facility): CTDIvol = ( 44.99 ) mGy, DLP = ( 846.73 ) mGycm TECHNIQUE: Transaxial CT imaging of the brain was performed without administration of intravenous contrast material. Individualized dose optimization techniques were used for this CT. COMPARISON: 05/20/2019 FINDINGS: Normal soft tissue structures. Normal calvarium. Normal size ventricles and extra-axial spaces for the patient''s age. Normal white matter tracts of the cerebral hemispheres. Normal basal ganglia and thalami. Normal brainstem. Normal cerebellum. There is no intracranial hemorrhage. There are no findings of an acute ischemic infarction. Normal visualized paranasal sinuses. CT/Brain/Head without Contrast IMPRESSION: Normal unenhanced CT scan of the brain. Electronically Signed: Darius Dukes MD at 21:00 EDT , Service support ,
--- NOTE | 2020-01-14 20:26 | EKG12_ITS ---
Test Reason : DIZZINESS Blood Pressure : / mmHG Vent. Rate : 060 BPM Atrial Rate : 083 BPM P-R Int : 264 ms QRS Dur : 168 ms QT Int : 470 ms P-R-T Axes : 000 044 164 degrees QTc Int : 470 ms Atrial-paced rhythm with prolonged AV conduction Left bundle branch block Abnormal ECG Confirmed by REZA RASCON, KATINA ([id number]), sound editor ABIDA DONATO ([id number]) on 01/18/2020 1:06:41 PM Referred By: SUDEEP Confirmed By:KATINA COBB MD
--- NOTE | 2020-01-14 20:31 | ED.VISSUMM ---
- ER Visit Summary Date of Service: 01/14/20 Chief Complaint: Dizziness History of Present Illness: The patient is a 70 F who presents with dizziness that began today. Patient states it is gradually gotten worse. Patient states she feels like she is shaky all over. Patient denies any spinning sensation or lightheadedness. Patient does admit to some pain in her chest and some mild shortness of breath. Patient denies any nausea or vomiting. Patient denies any diaphoresis. Patient denies any fevers or chills. Patient states nothing makes the dizziness better or worse. Physical Examination: Vital signs are stable. Patient is afebrile. Patient is in no acute distress. Oral mucosa is pink and moist. Neck is supple. Trachea is midline. There is no JVD noted. Heart was regular rate and rhythm. Lungs are clear and equal bilaterally. Abdomen is soft. Bowel sounds are normal. There is no tenderness. There is no rebound or guarding noted. Skin is warm dry. Cranial nerves II through XII are intact. There are no focal motor or sensory deficits noted. Extremities are intact. There is no calf tenderness or edema. Test Results: CBC and comprehensive metabolic profile were essentially within normal limits. Urinalysis does not show any evidence of urinary tract infection. EKG shows a paced rhythm with a rate of 60. There is a left bundle branch block pattern noted. This was unchanged compared to previous EKG dated 01/04/2020. Portable chest x-ray was obtained. There is no acute cardiopulmonary process. CT scan of the brain was obtained. There is no intracranial abnormality. These were interpreted by the radiologist and reviewed by myself. Emergency Department Course and Treatment: Orthostatic vital signs were obtained and were within normal limits. Patient was able to ambulate to the bathroom and back without any difficulty. Patient states her dizziness did not change with this. Patient was advised of her findings. Patient was instructed to drink plenty of fluids. Patient was instructed to follow-up with her primary care physician in 5 to 7 days. Patient understood and was agreeable with the plan. All questions were answered. Disposition: Discharge home Impression: Dizziness This note was generated with [employer] dictation software. It may contain incorrect words, spelling, and punctuation that were not noted in review of the chart prior to signing ED Disposition - Plan for ED Patient: Disposition: Home or Assisted Living Diagnosis: Dizziness Instructions: ED Dizziness [facility] Referrals: Davon Calzada MD [Primary Care Provider] - 3-5 Days
[2020-01-14 20:39] LABS: Absolute Lymphocyte Count 2.19 X10^3/uL (0.83-4.51); Absolute Neutrophil Count 5.2 X10^3/uL (2.0-7.7); Basophil# 0.06 X10^3/uL; Basophil% 0.7 % (0-1); Eosinophil# 0.28 X10^3/uL; Eosinophils% 3.3 % (0-5); Hematocrit 41.8 % (37-47); Hemoglobin 13.1 g/dL (12.0-15.0); Lymphocyte # 2.19 X10^3/ul (4.0); Lymphocyte % 26.1 % (19-41); Mean Corp Hgb Conc 31.3 g/dL (32-36); Mean Corpuscular Hgb 29.2 pg (27.0-32.0); Mean Corpuscular Volume 93.3 fL (81-99); Mean Platelet Vol. 11.3 fl (6.2-12.0); Monocyte# 0.66 X10^3/uL; Monocyte% 7.9 % (0-10); NRBC Flagged by Analyzer 0 % (0-5); Neutrophil # 5.17 X10^3/uL (2.7-7.7); Neutrophil % 61.6 % (47-70); Platelet Count 217 K/mm3 (150-450); RBC Distribution Width CV 14.3 % (11.6-14.6); Red Blood Count 4.48 M/mm3 (4.2-5.4); White Blood Count 8.4 K/mm3 (4.4-11.0)
--- NOTE | 2020-01-14 20:43 | RAD_ITS ---
STUDY: X-RAY CHEST REASON FOR EXAM: Female, 70 years old. dizziness. Increased blood pressure TECHNIQUE: Single AP portable view of the chest. COMPARISON: 01/04/2020 FINDINGS: The lungs are clear and expanded. There is no demonstrated pleural abnormality. Normal size heart. Previous CABG. Pacemaker is seen with leads terminating in the right atrium and right ventricle. Normal mediastinum and rosalinda. Normal visualized pulmonary arteries. Normal visualized aortic arch and descending thoracic aorta. Normal visualized thoracic spine. Normal visualized ribs, clavicles, and shoulders. There is no demonstrated abnormality of the visualized soft tissue structures of the upper abdomen. RAD/Chest 1 View (Portable) IMPRESSION: No definite acute or significant abnormality seen. Electronically Signed: Darius Dukes MD at 21:01 EDT , Service support ,
[2020-01-14 21:05] LABS: ALB/GLOB Ratio 0.9 RATIO (0.9-2.4); AST(SGOT) 42 U/L (15-37); Alanine Aminotransfer ALT/SGPT 64 U/L (13-56); Albumin, Serum 3.5 g/dL (3.2-5.0); Alkaline Phosphatase 175 U/L (45-117); Anion Gap 7 (5-15); BUN 17 mg/dL (7-18); BUN/Creat Ratio 18.1 RATIO (10-20); Calcium,Total 9.4 mg/dL (8.5-10.1); Chloride 110 mmol/L (98-107); Creatinine, Serum 0.94 mg/dL (0.55-1.02); EST Glomerular Filtration Rate 62 mL/min (>60); Est Glom Filt Rate - Afr Amer 76 mL/min (>60); Estimated Creatinine Clearance 52.61 ml/min; Glucose 144 mg/dL (74-106); Potassium 3.8 mmol/L (3.5-5.1); Protein, Total 7.5 g/dL (6.4-8.2); Sodium Level 141 mmol/L (136-145)
[2020-01-14 21:12] VITALS: BP 158/75; PULSE 60; RESP 16; O2SAT 97
[2020-01-14 21:23] LABS: Bacteria 0 SEEN /hpf (None Seen); Mucous, Urine 0 SEEN /hpf (<or=2+); Red Blood Cells-Urine 0 SEEN /hpf (0-5); White Blood Cells 0 SEEN /hpf (0-5)
[2020-01-14 21:25] LABS: Color, Urine Yellow (Yellow); Glucose, Dipstick Normal (Normal); Ketone-Dipstick Negative (Negative); Leukocyte Esterase-Dipstick Negative /ul (Negative); Nitrite-Dipstick Negative (Negative); Occult Blood-Urine Negative /ul (Negative); Protein-Dipstick Negative (Negative); Urine Bilirubin Dipstick Negative (Negative); Urine Clarity Sl. Cloudy (Clear); Urine Urobilinogen Normal (Normal); Urine pH 6.5 (5.0 - 8.0)
[2020-01-14 21:33] LABS: Squamous Epithelial Cells - UA 0-5 SEEN /hpf (5-10)
[2020-01-14 22:00] VITALS: BP 167/87; PULSE 60; RESP 18; O2SAT 97
[2020-01-14 22:10] VITALS: BP 138/78; BP 147/101; BP 167/87; PULSE 60; PULSE 61
== END 2020-01-14 22:32 | disposition home or self-care (01) ==
PROVIDERS: Emergency Provider Emergency Medicine; PCP Internal Medicine
DX: R42 Dizziness and giddiness (principal); R07.89 Other chest pain; R06.02 Shortness of breath; R51 Headache; M54.9 Dorsalgia, unspecified; I44.7 Left bundle-branch block, unspecified; I10 Essential (primary) hypertension; K21.9 Gastro-esophageal reflux disease without esophagitis; Z79.899 Other long term (current) drug therapy
CPT/HCPCS: 70450; 71045; 80053; 81001; 84484; 85025; 93005; 99285; A4216

== ENCOUNTER → 2020-02-14 08:29 | Outpatient (CLI) | payer MEDICARE, SELFPAY ==
[2019-06-09 13:01] VITALS: BMI 26.6
[2020-02-14 08:30] VITALS: PULSE 59; PULSE 60; PULSE 62; PULSE 63; PULSE 65; PULSE 71; PULSE 73; PULSE 74; O2SAT 94; O2SAT 95; O2SAT 96
--- NOTE | 2020-02-14 14:19 | WT_ITS ---
PSN 6 Minute Walk Test - 6 Minute Walk Test 6 Minute Walk Test: 6 Minute Walk Test PSN:6-Minute Walk Test Start: 02/14/20 09:42 Freq: Status: Active Protocol: RESP.[id number] Document 02/14/20 08:30 [facility] (Rec: 02/14/20 09:50 [facility] [id number]) 6 Minute Walk Test Date Performed 02/14/20 Time Performed 08:30 Height 5 ft 7 in Weight: 178 lb Weight in Pounds 178.[address]: Dr. Sanchez Assistive device used: Cane Pre-test Oxygen Delivery Method Room Air Pulse Ox (%) 96 Pulse Rate (60-100 beats/min) 60 Dyspnea Eloisa Scale (0-10) 0.5 Exertion Eloisa Scale (6-20) 6 1st minute Oxygen Delivery Method Room Air Pulse Ox (%) 96 Pulse Rate (60-100 beats/min) 59 L 2nd minute Oxygen Delivery Method Room Air Pulse Ox (%) 94 Pulse Rate (60-100 beats/min) 63 3rd minute Oxygen Delivery Method Room Air Pulse Ox (%) 94 Pulse Rate (60-100 beats/min) 65 4th minute Oxygen Delivery Method Room Air Pulse Ox (%) 95 Pulse Rate (60-100 beats/min) 74 5th minute Oxygen Delivery Method Room Air Pulse Ox (%) 96 Pulse Rate (60-100 beats/min) 73 6th minute Oxygen Delivery Method Room Air Pulse Ox (%) 95 Pulse Rate (60-100 beats/min) 71 Dyspnea Eloisa Scale (0-10) 1 Exertion Eloisa Scale (6-20) 8 Post-test Oxygen Delivery Method Room Air Pulse Ox (%) 96 Pulse Rate (60-100 beats/min) 62 Full Laps Walked 8 Partial Lap, Number of Tiles Walked 46 Total Distance Walked (ft) 518 - Interpretation Interpretation: The patient ambulated 518 feet over the course of 6 minutes beginning on room air with the use of a cane. Pretesting oxygen saturation was noted to be 96% on room air. With ambulation, the alfredo oxygen saturation was 94%. Although there was evidence of impaired walk distance, there was no significant exertional oxygen desaturation. This would be consistent with a musculoskeletal limitation to exercise tolerance. - Recommendations Recommendations: There is no indication for the use of supplemental oxygen at this time.
== END ==
LOC: PSN 08:31
PROVIDERS: Family Provider Internal Medicine; PCP Internal Medicine; Referring Provider Internal Medicine Critical Care Medicine; Visit Provider Internal Medicine Critical Care Medicine
DX: J45.909 Unspecified asthma, uncomplicated (principal)
CPT/HCPCS: 94618

== ENCOUNTER 2020-03-10 19:47 | Emergency (ER) | payer MEDICARE, SELFPAY ==
[2020-02-17 09:24] VITALS: BMI 29.1
[2020-03-10 19:51] VITALS: BP 187/119; PULSE 60; RESP 18; TEMP 37.2; O2SAT 97; BMI 29.7
--- NOTE | 2020-03-10 20:05 | EKG12_ITS ---
Test Reason : CHEST TIGHTNESS Blood Pressure : / mmHG Vent. Rate : 060 BPM Atrial Rate : 060 BPM P-R Int : 252 ms QRS Dur : 164 ms QT Int : 456 ms P-R-T Axes : 051 -17 135 degrees QTc Int : 456 ms Atrial-paced rhythm with prolonged AV conduction Left bundle branch block Abnormal ECG Confirmed by ODETTE RASCON, BENTLEY ([id number]), writer editor ABIDA DONATO ([id number]) on 03/12/2020 9:47:05 AM Referred By: [place] Confirmed By:BENTLEY PINO MD
--- NOTE | 2020-03-10 20:05 | RAD_ITS ---
STUDY: X-RAY CHEST REASON FOR EXAM: Female, 70 years old. EPISODE OF CHEST TIGHTNESS TODAY TECHNIQUE: Single frontal view of the chest. COMPARISON: 01/14/2020 FINDINGS: Dual-chamber pacemaker on the left. Median sternotomy wires. The lungs are clear and expanded. There is no demonstrated pleural abnormality. Normal size heart. Normal mediastinum and rosalinda. Normal visualized pulmonary arteries. Normal visualized aortic arch and descending thoracic aorta. Normal visualized thoracic spine. Normal visualized ribs, clavicles, and shoulders. There is no demonstrated abnormality of the visualized soft tissue structures of the upper abdomen. RAD/Chest 1 View (Portable) IMPRESSION: No acute pulmonary findings. Electronically Signed: Jarad Victor MD at 20:46 EDT Tel , Service support ,
[2020-03-10 20:19] LABS: Absolute Lymphocyte Count 1.91 X10^3/uL (0.83-4.51); Absolute Neutrophil Count 4.7 X10^3/uL (2.0-7.7); Basophil# 0.06 X10^3/uL; Basophil% 0.8 % (0-1); Eosinophil# 0.23 X10^3/uL; Hematocrit 38.4 % (37-47); Hemoglobin 12.4 g/dL (12.0-15.0); Lymphocyte # 1.91 X10^3/ul (4.0); Lymphocyte % 25.2 % (19-41); Mean Corp Hgb Conc 32.3 g/dL (32-36); Mean Corpuscular Hgb 28.9 pg (27.0-32.0); Mean Corpuscular Volume 89.5 fL (81-99); Mean Platelet Vol. 11.3 fl (6.2-12.0); Monocyte# 0.63 X10^3/uL; Monocyte% 8.3 % (0-10); NRBC Flagged by Analyzer 0 % (0-5); Neutrophil # 4.74 X10^3/uL (2.7-7.7); Neutrophil % 62.4 % (47-70); POSITIVE MORPHOLOGY YES; Platelet Count 164 K/mm3 (150-450); RBC Distribution Width CV 14.7 % (11.6-14.6); RBC Distribution Width SD 47.8 fl (35.1-43.9); Red Blood Count 4.29 M/mm3 (4.2-5.4); White Blood Count 7.6 K/mm3 (4.4-11.0)
[2020-03-10] MEDS: Aspirin 81 MG TAB.CHEW 324 MG PO (20:20)
[2020-03-10 20:23] LABS: Differential Indicated SCAN CRITERIA MET
[2020-03-10 20:49] LABS: Differential Comment SCANNED
[2020-03-10 21:00] VITALS: BP 137/70; PULSE 65; RESP 22; O2SAT 97
--- NOTE | 2020-03-10 21:33 | ED.VISSUMM ---
- ER Visit Summary Date of Service: 03/10/20 Chief Complaint: Shortness of breath History of Present Illness: The patient is a [address] Torres and Dr. Calzada. She reports she has shortness of breath began an hour and a half ago that she was walking through her house. She states that it is a little bit more than usual. States that it was not relieved with her albuterol MDI as fast as it typically is. She reports it is now completely resolved. Patient reports that she has had a chest tightness for years that is unchanged. She states that she has had this ever since have an aortic valve replacement in January 2013. States her tightness was no different than usual today. She denies any other complaints. Physical Examination: Vitals: Stable. Afebrile. General: Well-nourished and well-developed. Head: Normocephalic atraumatic. Neck: Supple, no lymphadenopathy. No JVD. Nontender. Cardiovascular: Regular rate and rhythm. No murmurs. Respiratory: No respiratory distress. Clear to auscultation bilaterally. Abdominal: Soft, nontender, nondistended, normal bowel sounds. No guarding, rebound, or peritoneal signs. Back: Nontender. Extremities: Nontender, no edema. Skin: Normal color, no rash. Neurologic: Alert and oriented ?3. Cranial nerves II through XII are intact. Normal strength and sensation. Psych: Normal affect. Test Results: EKG is AV paced at 60 with no acute changes. Initial troponin 0 0.03. Chem-7 is remarkable for a sodium of 146, chloride 115, glucose 128. CBC is normal. Clinical Impression(s) from Imaging Studies Chest X-Ray 03/10/20 20:05 IMPRESSION: No acute pulmonary findings. Electronically Signed: Jarad Victor MD at 20:46 EDT Tel , Service support , Emergency Department Course and Treatment: Patient is resting comfortably. She is had no further shortness of breath while here. Treatment Plan: Patient was discussed with Dr. Torres. She will have a 3-hour troponin obtained. I am not going to do a repeat EKG as she is paced and this is going to be helpful. Assuming this is negative she will be discharged instructions to follow-up with her primary care physician1-2 days if not improving. If this is positive she will be admitted to the hospital. Disposition: Pending Impression: 1. Atypical chest pain. 2. Dyspnea. 3. History of asthma. This note was generated with MakerBot[employer] software. It may contain incorrect words, spelling, and punctuation that were not noted in review of the chart prior to signing <Christ Alvarado - Last Filed: 03/11/20 00:08> - ER Visit Summary Addendum by Blanca: Repeat troponin was obtained and is still in the negative range. The patient has had no further symptoms. Based on initial plan, the patient will be discharged home. This note was generated with [employer] software. It may contain incorrect words, spelling, and punctuation that were not noted in review of the chart prior to signing <Davis Albrecht - Last Filed: 03/11/20 01:02> ED Disposition <Christ Alvarado - Last Filed: 03/11/20 00:08> <Davis Albrecht - Last Filed: 03/11/20 01:02> - Plan for ED Patient: Instructions: ED REACTIVE AIRWAY DISEASE Adult Referrals: Davon Calzada MD [Primary Care Provider] - 1-2 Days if not improving
[2020-03-10 21:58] LABS: Anion Gap 8 (5-15); BUN 12 mg/dL (7-18); BUN/Creat Ratio 12.9 RATIO (10-20); Calcium,Total 9.4 mg/dL (8.5-10.1); Chloride 115 mmol/L (98-107); Creatinine, Serum 0.93 mg/dL (0.55-1.02); EST Glomerular Filtration Rate 63 mL/min (>60); Est Glom Filt Rate - Afr Amer 76 mL/min (>60); Estimated Creatinine Clearance 53.17 ml/min; Glucose 128 mg/dL (74-106); Potassium 3.6 mmol/L (3.5-5.1); Sodium Level 146 mmol/L (136-145)
[2020-03-10 22:00] VITALS: BP 130/80; PULSE 60; RESP 18; O2SAT 96
[2020-03-10 23:00] VITALS: BP 138/85; PULSE 60; RESP 13
[2020-03-11] VITALS: BP 120/72; PULSE 60; RESP 14
[2020-03-11 01:00] VITALS: BP 133/80; PULSE 60; RESP 12; O2SAT 96
== END 2020-03-11 01:18 | disposition home or self-care (01) ==
LOC: ED 20:44
PROVIDERS: Emergency Provider Emergency Medicine; PCP Internal Medicine
DX: R07.89 Other chest pain (principal); R06.00 Dyspnea, unspecified; R19.7 Diarrhea, unspecified; J45.909 Unspecified asthma, uncomplicated; I10 Essential (primary) hypertension; E11.9 Type 2 diabetes mellitus without complications; I49.5 Sick sinus syndrome; E78.00 Pure hypercholesterolemia, unspecified; Z95.2 Presence of prosthetic heart valve; Z95.0 Presence of cardiac pacemaker; Z79.84 Long term (current) use of oral hypoglycemic drugs; Z79.899 Other long term (current) drug therapy
CPT/HCPCS: 71045; 80048; 84484; 85025; 93005; 99285; A4216

== ENCOUNTER → 2020-03-19 09:05 | Outpatient (CLI) | payer MEDICARE, SELFPAY ==
[2020-03-10 19:51] VITALS: BMI 29.7
[2020-03-19 10:24] LABS: AST(SGOT) 23 U/L (15-37); Alanine Aminotransfer ALT/SGPT 32 U/L (13-56); Albumin, Serum 3.5 g/dL (3.2-5.0); Alkaline Phosphatase 165 U/L (45-117); Bilirubin, Direct 0.11 mg/dL (0.00-0.30); Cholesterol 189 mg/dL (200); Globulin 3.6 g/dL (2.2-4.2); High Density Lipoprotein 45 mg/dL; Protein, Total 7.1 g/dL (6.4-8.2); Triglycerides 200 mg/dL; Very Low Density Lipoprotein 40 mg/dL (5-40)
== END ==
LOC: LAB 09:07
PROVIDERS: PCP Internal Medicine; Referring Provider Internal Medicine Cardiovascular Disease; Visit Provider Internal Medicine Cardiovascular Disease
DX: E78.00 Pure hypercholesterolemia, unspecified (principal)
CPT/HCPCS: 36415; 80061; 80076

== ENCOUNTER → 2020-10-08 11:21 | Outpatient (CLI) | payer MEDICARE, SELFPAY ==
[2020-10-04 08:43] VITALS: BMI 29.9
--- NOTE | 2020-10-08 11:35 | RAD_ITS ---
STUDY: X-RAY CHEST REASON FOR EXAM: Female, 70 years old. SOB, CP TECHNIQUE: PA and lateral views of the chest. COMPARISON: March 10, 2020 chest x-ray FINDINGS: There is a left-sided pacer with leads overlying the right atrium and ventricle. Persistent elevation of the left hemidiaphragm. There is no visualized focal infiltrate. There is no demonstrated pleural abnormality. Sternal cerclage wires and vascular clips are present from a prior sternotomy and coronary artery bypass graft procedure (CABG). Normal mediastinum and rosalinda. Normal visualized pulmonary arteries. Normal visualized aortic arch and descending thoracic aorta. There are diffuse degenerative changes of the visualized thoracic spine. Normal visualized ribs, clavicles, and shoulders. There is no demonstrated abnormality of the visualized soft tissue structures of the upper abdomen. RAD/Chest PA and Lateral IMPRESSION: Stable chest status post CABG pacemaker no visualized focal infiltrate. Electronically Signed: Argenis Avila MD at 3:01 EST Tel , Service support ,
[2020-10-08 12:59] LABS: Absolute Lymphocyte Count 1.67 X10^3/uL (0.83-4.51); Absolute Neutrophil Count 4.6 X10^3/uL (2.0-7.7); Basophil# 0.07 X10^3/uL; Eosinophils% 2.8 % (0-5); Hematocrit 41.3 % (37-47); Hemoglobin 12.6 g/dL (12.0-15.0); Lymphocyte # 1.67 X10^3/ul (4.0); Lymphocyte % 23.8 % (19-41); Mean Corp Hgb Conc 30.5 g/dL (32-36); Mean Corpuscular Hgb 27.7 pg (27.0-32.0); Mean Corpuscular Volume 90.8 fL (81-99); Mean Platelet Vol. 10.9 fl (6.2-12.0); Monocyte# 0.44 X10^3/uL; Monocyte% 6.3 % (0-10); NRBC Flagged by Analyzer 0 % (0-5); Neutrophil # 4.63 X10^3/uL (2.7-7.7); Neutrophil % 65.8 % (47-70); Platelet Count 181 K/mm3 (150-450); RBC Distribution Width CV 14.7 % (11.6-14.6); RBC Distribution Width SD 49.3 fl (35.1-43.9); Red Blood Count 4.55 M/mm3 (4.2-5.4)
[2020-10-08 13:21] LABS: Anion Gap 8 (5-15); BUN 19 mg/dL (7-18); BUN/Creat Ratio 19.7 RATIO (10-20); Calcium,Total 9.8 mg/dL (8.5-10.1); Chloride 109 mmol/L (98-107); Creatinine, Serum 0.96 mg/dL (0.55-1.02); EST Glomerular Filtration Rate 60 mL/min (>60); Est Glom Filt Rate - Afr Amer 73 mL/min (>60); Glucose 183 mg/dL (74-106); Magnesium 1.8 mg/dL (1.6-2.6); Potassium 3.6 mmol/L (3.5-5.1); Sodium Level 142 mmol/L (136-145)
[2020-10-08 13:22] LABS: BNP,B-Type NATRIURETIC PEPTIDE 224.2 pg/mL (0-100)
== END ==
LOC: LAB 11:24
PROVIDERS: PCP Internal Medicine; Referring Provider Nurse Practitioner Family; Visit Provider Nurse Practitioner Family
DX: R06.00 Dyspnea, unspecified (principal); I48.0 Paroxysmal atrial fibrillation; I35.0 Nonrheumatic aortic (valve) stenosis; I10 Essential (primary) hypertension; I49.5 Sick sinus syndrome; E78.5 Hyperlipidemia, unspecified; R06.02 Shortness of breath; R07.9 Chest pain, unspecified; Z95.0 Presence of cardiac pacemaker
CPT/HCPCS: 36415; 71046; 80048; 83735; 83880; 85025

== ENCOUNTER 2021-07-02 11:12 | Emergency (ER) | payer MEDICARE, SELFPAY ==
[2021-07-02 11:14] VITALS: BP 119/77; PULSE 60; RESP 24; TEMP 37.3; O2SAT 96; BMI 28.3
[2021-07-02 12:26] VITALS: BP 160/83; PULSE 60; RESP 20; O2SAT 95
--- NOTE | 2021-07-02 13:17 | EDS_ITS ---
HPI History of Present Illness Chief Complaint: Shortness of Breath Informant: patient Onset/Context/Timing Onset: Days (several) Context: Gradual Onset Timing: Intermittent Quality: wheezing Location: chest Current Severity: Gone Maximum Severity: Moderate Worsened by: coughing, exertion sometimes Relieved by: Albuterol mdi Narrative Narrative: Patient states she developed a cough about 1 week ago, it has gotten worse, nonproductive, and for the last several days she has had some shortness of breath and wheezing. She has a history of asthma, she states it feels like her asthma. She has had no orthopnea or peripheral edema. No chest pain except for mild soreness from lots of coughing. She denies any fevers, chills, myalgias. She has chronic diarrhea that is unchanged without any blood or melena. No other GI symptoms. She was vaccinated against Covid. She was seen at urgent care just prior to being sent here to the ER and had a negative rapid Covid test. She states that other than the cough and wheezing she is feeling well. [facility] Medical History (Updated 07/02/21 @ 14:[address] Paul Lanza MD) Asthma with acute exacerbation Asthma, moderate persistent Bradycardia Carpal tunnel syndrome Cough Dyspnea on exertion Essential (primary) hypertension GERD (gastroesophageal reflux disease) HLD (hyperlipidemia) HLD (hyperlipidemia) Lichen planus Non-rheumatic aortic stenosis Pneumonia SA node dysfunction Seasonal allergies Shortness of breath Sick sinus syndrome Type 2 diabetes mellitus Home Medications pravastatin 40 mg PO QHS 09/06/16 [History Last Taken 01/13/19] metformin 500 mg tablet 500 mg PO DAILY 12/01/17 [History Last Taken 01/14/19] cholecalciferol (vitamin D3) 2,000 unit PO DAILY 01/05/19 [History Last Taken 01/14/19] fexofenadine 180 mg tablet 180 mg PO DAILY #30 tab 11/28/19 [Rx Last Taken Unknown] pantoprazole 20 mg PO DAILY 01/14/20 [History Last Taken Unknown] lisinopril 10 mg tablet 10 mg PO BID #180 tab 10/04/20 [Rx Last Taken Unknown] sotalol 80 mg tablet 80 mg PO BID #180 tab 01/07/21 [Rx Last Taken Unknown] meclizine 25 mg tablet 25 mg PO DAILY PRN 02/14/21 [History Last Taken Unknown] albuterol sulfate 90 mcg/actuation aerosol inhaler 2 puff INHALATION Q4H PRN #18 g 02/15/21 [Rx Last Taken Unknown] cefdinir 300 mg PO BID #20 cap 07/02/21 [Rx Last Taken Unknown] clobetasol 1 applic TOPICAL DAILY 07/02/21 [History Last Taken Unknown] estradiol 1 applic VAGINAL 07/02/21 [History Last Taken Unknown] fluticasone furoate-vilanterol [Breo Ellipta] 1 inh INHALATION DAILY 07/02/21 [History Last Taken Unknown] prednisone 40 mg PO DAILY #10 tablet 07/02/21 [Rx Last Taken Unknown] Allergy/AdvReac Type Severity Reaction Status Date / Time Penicillins Allergy Shortness Verified 07/02/21 11:17 of breath Family History (Reviewed 02/15/21 @ 10:18 by Re Escalona M[employer]IPLE [employer]LE [employer]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, 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) Mother Diabetes Aunt Breast cancer Father Cancer Surgical History H/O aortic valve replacement H/O aortic valve replacement History of aortic valve replacement with bioprosthetic valve (~01/25/13) History of tonsillectomy Hx of cataract extraction Presence of permanent cardiac pacemaker (01/07/19) S/P surgical removal of pilonidal cyst Social History Smoking Status: Never smoker alcohol intake: never substance use type: does not use caffeine: Yes (Occasionally) Type: carbonated beverages and tea ROS ROS ED Constitutional Constitutional ED: Denies chills or fever(s) Eyes Eyes: Denies change in vision or diplopia ENT ENT ED: Denies rhinorrhea or sore throat Cardiovascular Cardiovascular: Denies chest pain or palpitations Respiratory/Chest Respiratory/Chest: Reports cough, dyspnea and wheezing Gastrointestinal Gastrointestinal: Reports diarrhea; Denies abdominal pain, nausea or vomiting Genitourinary Genitourinary ED: Denies dysuria or hematuria Musculoskeletal Musculoskeletal: Reports other Details: Chronic arthralgias unchanged ; Denies back pain or neck pain Integumentary Denies abscess or rash Neurologic Neurologic: Denies headache(s), paresthesias or weakness Psychiatric Psychiatric: Denies anxiety or suicidal thoughts EXAM Physical Exam Const Vital Signs: 07/02/21 11:14 07/02/21 12:26 07/02/21 12:28 Temperature 99.1 F Temperature Source Oral Pulse Rate 60 60 Respiratory Rate 24 H 20 H Respiratory Effort Normal Non-Labored Respiratory Depth Normal Respiratory Pattern Normal Blood Pressure 119/77 160/83 H Blood Pressure Mean 91 108 Pulse Ox 96 95 Oxygen Delivery Method Room Air Room Air Positive well nourished and well developed General Appearance ED: well developed and NAD HEENT Reports moist mucous membranes normocephalic and atraumatic Eyes PERRL and EOMs intact bilaterally Neck full ROM and supple Resp normal respiratory effort and clear to auscultation bilaterally Cardio regular rate, regular rhythm and no JVD Cardio Narrative: Mild systolic ejection murmur Rate: Negative for tachycardic GI non-tender and non-distended Auscultation: normoactive bowel sounds Palpation: soft Back/Spine no CVA tenderness General Back: other FROM Extremity normal to inspection General Extremety ED: Negative for edema, pulses abnormal or tenderness General Extremity: Negative for edema or pulses abnormal Neuro oriented x3, CN's II-XII intact bilaterally and no sensory deficits noted Sensorium / Orientation: awake and alert Motor Exam: strength 5/5 throughout Skin no rashes or lesions noted and no wounds MDM MDM MDM Narrative Medical decision making narrative: Chest x-ray obtained, as below it shows findings suggestive of early pneumonia at the right lung base. This is not a Covid-like appearance, and she had a negative rapid Covid test. I do think it is reasonable to obtain a send out PCR to ensure that that was not a false negative, however she has normal vital signs except for some mild hypertension on recheck at 160/83, but she is not hypoxic. Her lungs are clear she is breathing well, she does not have any pleuritic discomfort to suggest pulmonary embolus here, nor does she have specific risk factors for that. I do not think she really requires any further work-up, I think her symptoms are consistent with an illness. We ambulated her, she did well without hypoxemia. At this time I think it is reasonable to treat her as an outpatient for pneumonia with azithromycin since she has a penicillin allergy, and a short course of steroids for her asthma. She is amenable to all of that. Started her with a dose of Solu-Medrol here since we have an IV, will prescribe her a 5-day burst to start tomorrow of prednisone. Advise close outpatient follow-up either with her pu lmonologist or her PCP, she is comfortable with that plan. After the patient was given the initial azithromycin here, I realized that she was on sotalol, which can give her a prolonged QT interval. Therefore instead of prescribing more a azithromycin I will prescribe her to cefdinir for 10 days. Radiography Diagnostic Testing: Clinical Impression(s) from Imaging Studies Chest X-Ray 07/02/21 13:30 IMPRESSION: Stable scarring at the lung bases with the findings suggestive of early infiltrate at the right lung base. Electronically Signed: Mike Gray MD at 13:47 EST , Service support , Discharge Plan Triage Chief Complaint: Shortness of Breath ED Provider: Paul Lanza Dx/Rx/DC Orders Clinical Impression: Pneumonia, Acute asthma exacerbation Instructions: ED Asthma, Acute (Adult), ED Pneumonia (Adult) Prescriptions: New prednisone 20 MG tablet 40 mg PO DAILY Qty: 10 RF: 0 cefdinir 300 mg capsule 300 mg PO BID Qty: 20 RF: 0 No Action metformin 500 mg tablet 500 mg PO DAILY RF: 0 lisinopril 10 mg tablet 10 mg PO BID Qty: 180 RF: 3 meclizine 25 mg tablet 25 mg PO DAILY PRN (Reason: Dizziness) RF: 0 albuterol sulfate 90 mcg/actuation HFA aerosol inhaler 2 puff INHALATION Q4H PRN (Reason: shortness of breath or wheezing) Qty: 18 RF: 6 pravastatin 40 MG tablet 40 mg PO QHS RF: 0 cholecalciferol (vitamin D3) 2,000 UNIT capsule 2,000 unit PO DAILY RF: 0 pantoprazole 20 MG tablet 20 mg PO DAILY RF: 0 estradiol 0.01 % (0.1 mg/gram) cream 1 applic VAGINAL RF: 0 Breo Ellipta 200-25 mcg/dose blister with device 1 inh INHALATION DAILY RF: 0 clobetasol 0.025 % Cream 1 applic TOPICAL DAILY RF: 0 fexofenadine 180 mg tablet 180 mg PO DAILY Qty: 30 RF: 3 sotalol 80 mg tablet 80 mg PO BID Qty: 180 RF: 3 Primary Care Provider: Davon Calzada Referrals: Chriss Sanchez MD [STAFF PHYSICIAN] - (Follow-up with pulmonary or your PCP within the next 3-5 days) Davon Calzada MD [Primary Care Provider] - Activity Restrictions/Additional Instructions: Start your antibiotic as soon as you get the prescription, start the prednisone prescription tomorrow 07/03 Disposition Disposition: Home, Self Care
--- NOTE | 2021-07-02 13:30 | RAD_ITS ---
STUDY: X-RAY CHEST REASON FOR EXAM: Female, 71 years old. Cough asthma TECHNIQUE: PA and lateral views of the chest. COMPARISON: Comparison is made with prior examination dated 10/08/2020. FINDINGS: EKG electrodes are seen. Hyperinflation. There is evidence of increased markings at the lung bases suggestive of a scarring. These have increased at the right lung base suggestive of possible early right basilar infiltrate. There is no demonstrated pleural abnormality. Sternal cerclage wires and vascular clips are present from a prior sternotomy and coronary artery bypass graft procedure (CABG). A left-sided dual-chamber pacemaker is seen. Normal mediastinum and rosalinda. Normal visualized pulmonary arteries. Normal visualized aortic arch and descending thoracic aorta. Normal visualized thoracic spine. Normal visualized ribs, clavicles, and shoulders. There is no demonstrated abnormality of the visualized soft tissue structures of the upper abdomen. RAD/Chest PA and Lateral IMPRESSION: Stable scarring at the lung bases with the findings suggestive of early infiltrate at the right lung base. Electronically Signed: Mike Gray MD at 13:47 EST , Service support ,
[2021-07-02] MEDS: Azithromycin 250 MG Tablet 500 MG PO (14:15)
[2021-07-02] MEDS: MethylPREDNISolone 125 MG/2 ML Vial IV (14:15)
[2021-07-02 15:17] VITALS: O2SAT 98
[2021-07-02 15:34] VITALS: BP 149/76; PULSE 60; RESP 22; O2SAT 96
== END 2021-07-02 15:35 | disposition home or self-care (01) ==
PROVIDERS: Emergency Provider Emergency Medicine; PCP Internal Medicine
DX: J18.9 Pneumonia, unspecified organism (principal); J45.41 Moderate persistent asthma with (acute) exacerbation; E11.9 Type 2 diabetes mellitus without complications; E78.5 Hyperlipidemia, unspecified; I10 Essential (primary) hypertension; I35.0 Nonrheumatic aortic (valve) stenosis; I49.5 Sick sinus syndrome; K21.9 Gastro-esophageal reflux disease without esophagitis; G56.00 Carpal tunnel syndrome, unspecified upper limb; Z95.2 Presence of prosthetic heart valve; Z79.84 Long term (current) use of oral hypoglycemic drugs; Z79.899 Other long term (current) drug therapy
CPT/HCPCS: 71046; 87635; 96374; 99285; U0005; A4216; U0003

== ENCOUNTER 2021-09-10 13:27 | Outpatient (CLI) | payer MEDICARE, SELFPAY ==
--- NOTE | 2021-09-10 13:34 | ECHOD_ITS ---
Reason For Study: VALVE REPLACEMET EVAL Procedure This was a 2D Doppler, Color Flow transthoracic echocardiogram. The study was technically difficult. Due to body habitus. Exam performed in department. Left Ventricle Based upon the 2D echocardiographic images obtained there appears to be grossly normal left ventricular size, wall motion, and systolic function. The estimated ejection fraction is 55 %. Diastolic function is indeterminate. Right Ventricle Normal RV size. ICD or pacer leads identified within the right ventricle. Normal systolic function. Atria The left atrium is mildly enlarged. The right atrium is mildly enlarged. No doppler evidence for ASD. Mitral Valve There is moderate mitral annular calcification. Extension of the mitral annular calcification on the base of the posterior mitral valve leaflet. Anterior leaflet diffuse mitral valve thickening. Mild (1+) mitral valve insufficiency. Tricuspid Valve Normal tricuspid valve. Moderate (2+) tricuspid valve insufficiency. Right ventricular systolic pressure estimated to be 28 mmHg. Aortic Valve The aortic valve apparatus is not well visualized, however, based upon the 2D echocardiographic images obtained there appears to be a stable appearing bioprosthetic aortic valve apparatus. Moderate aortic stenosis. Pulmonic Valve The pulmonic valve is not well visualized. Great Vessels Normal sized aortic root. Pericardium/Pleural No pericardial effusion. MMode/2D Measurements & Calculations LVIDd: 4.3 cm IVSd: 1.3 cm LVOT diam: 2.0 cm LVIDs: 3.3 cm LVPWd: 1.1 cm LVOT area: 3.0 cm2 RVDd: 4.0 cm FS: 23.1 % Ao root diam: 3.3 cm LAV(MOD-bp): 52.9 ml LA A4 area: 20.2 cm2 LAV(MOD-bp) Indexed: 27.1 ml/m2 LAV(MOD-sp2): 38.7 ml LAV(MOD-sp4): 64.4 ml LA dimension(2D): 4.3 cm RA A4 area: 17.8 cm2 Time Measurements MV dec time: 0.22 sec Doppler Measurements & Calculations MV E max dez: 79.9 cm/sec Lat Peak E' Dez: 7.9 cm/sec Med Peak E' Dez: 4.4 cm/sec MV A max dez: 87.1 cm/sec E/E' lat: 10.1 E/E' med: 18.2 MV E/A: 0.92 Ao V2 max: 331.7 cm/sec LV V1 max: 95.3 cm/sec SV(LVOT): 53.9 ml Ao max P.0 mmHg LV V1 max P.6 mmHg Ao V2 mean: 215.3 cm/sec LV V1 mean P.6 mmHg Ao mean P.0 mmHg LV V1 mean: 59.5 cm/sec Ao V2 VTI: 66.6 cm LV V1 VTI: 18.0 cm SPENCER(I,D): 0.81 cm2 SPENCER(V,D): 0.86 cm2 PA V2 max: 100.3 cm/sec TR max dez: 249.7 cm/sec TR max P.0 mmHg ECHO/Echo Complete Interpretation Summary The study was technically difficult. Based upon the 2D echocardiographic images obtained there appears to be grossly normal left ventricular size, wall motion, and systolic function. The estimated ejection fraction is 55 %. The left atrium is mildly enlarged. The right atrium is mildly enlarged. There is moderate mitral annular calcification. Extension of the mitral annular calcification on the base of the posterior mitr al valve leaflet. Anterior leaflet diffuse mitral valve thickening. Mild (1+) mitral valve insufficiency. Moderate (2+) tricuspid valve insufficiency. The aortic valve apparatus is not well visualized, however, based upon the 2D e chocardiographic images obtained there appears to be a stable appearing bioprosthetic aortic tamra ve apparatus. Moderate aortic stenosis. Right ventricular systolic pressure estimated to be 28 mmHg. Diastolic function is indeterminate. Ordering Physician: Ori Torres Referring Physician: Davon Calzada Performed By: Leila Lin, RDCS, RVT
== END 2021-09-10 23:59 | disposition home or self-care (01) ==
LOC: CVS 13:33
PROVIDERS: PCP Internal Medicine; Referring Provider Internal Medicine Cardiovascular Disease; Visit Provider Internal Medicine Cardiovascular Disease
DX: I35.0 Nonrheumatic aortic (valve) stenosis (principal)
CPT/HCPCS: 93306

== ENCOUNTER → 2022-03-19 | Outpatient (REF) | payer MEDICARE, MEDICAID, SELFPAY ==
[2022-03-19 09:21] LABS: Absolute Lymphocyte Count 2.19 X10^3/uL (0.83-4.51); Absolute Neutrophil Count 4.9 X10^3/uL (2.0-7.7); Basophil# 0.05 X10^3/uL; Basophil% 0.6 % (0-1); Eosinophil# 0.18 X10^3/uL; Eosinophils% 2.3 % (0-5); Hematocrit 39.1 % (37-47); Hemoglobin 12.2 g/dL (12.0-15.0); Lymphocyte # 2.19 X10^3/ul (0.83-4.51); Lymphocyte % 27.7 % (19-41); Mean Corp Hgb Conc 31.2 g/dL (32-36); Mean Corpuscular Volume 89.9 fL (81-99); Mean Platelet Vol. 11.4 fl (6.2-12.0); Monocyte# 0.56 X10^3/uL; Monocyte% 7.1 % (0-10); NRBC Flagged by Analyzer 0 % (0-5); Neutrophil # 4.89 X10^3/uL (2.7-7.7); Neutrophil % 61.9 % (47-70); Platelet Count 202 K/mm3 (150-450); RBC Distribution Width CV 15.5 % (11.6-14.6); RBC Distribution Width SD 51.2 fl (35.1-43.9); Red Blood Count 4.35 M/mm3 (4.2-5.4); White Blood Count 7.9 K/mm3 (4.4-11.0)
[2022-03-19 09:34] LABS: Vitamin D,25 Hydroxy 63.5 ng/mL
[2022-03-19 09:41] LABS: ALB/GLOB Ratio 0.9 RATIO (0.9-2.4); AST(SGOT) 18 U/L (15-37); Alanine Aminotransfer ALT/SGPT 28 U/L (13-56); Albumin, Serum 3.3 g/dL (3.2-5.0); Alkaline Phosphatase 141 U/L (45-117); Anion Gap 7 (5-15); BUN 28 mg/dL (7-18); BUN/Creat Ratio 27.5 RATIO (10-20); Calcium,Total 10.1 mg/dL (8.5-10.1); Chloride 111 mmol/L (98-107); Cholesterol 182 mg/dL (200); Creatinine, Serum 1.02 mg/dL (0.55-1.02); EST Glomerular Filtration Rate 56 mL/min (>60); Est Glom Filt Rate - Afr Amer 68 mL/min (>60); Globulin 3.8 g/dL (2.2-4.2); Glucose 131 mg/dL (74-106); High Density Lipoprotein 60 mg/dL; Magnesium 2.2 mg/dL (1.6-2.6); Potassium 4.4 mmol/L (3.5-5.1); Protein, Total 7.1 g/dL (6.4-8.2); Sodium Level 142 mmol/L (136-145); Triglycerides 141 mg/dL; Very Low Density Lipoprotein 28 mg/dL (5-40)
[2022-03-19 09:44] LABS: Hemoglobin A1c 6.4 % (3.8-5.6)
== END ==
LOC: OLS.SWAL 05:00
PROVIDERS: PCP Internal Medicine; Visit Provider Internal Medicine
DX: E11.9 Type 2 diabetes mellitus without complications (principal); E55.9 Vitamin D deficiency, unspecified; I10 Essential (primary) hypertension; E78.5 Hyperlipidemia, unspecified
CPT/HCPCS: 36415; 80053; 80061; 82306; 83036; 83735; 85025

== ENCOUNTER → 2022-07-21 | Outpatient (REF) | payer MEDICARE, OTHER, MEDICAID, SELFPAY ==
[2022-07-21 09:40] LABS: Hemoglobin A1c 6.4 % (3.8-5.6)
== END ==
LOC: OLS.SWAL 04:00
PROVIDERS: Referring Provider Internal Medicine; Visit Provider Internal Medicine
DX: E11.9 Type 2 diabetes mellitus without complications (principal)
CPT/HCPCS: 36415; 83036

== ENCOUNTER → 2022-09-03 | Outpatient (REF) | payer MEDICARE, MEDICAID, SELFPAY ==
[2022-09-03 08:58] LABS: Hemoglobin A1c 6.3 % (3.8-5.6)
[2022-09-03 09:05] LABS: ALB/GLOB Ratio 0.9 RATIO (0.9-2.4); AST(SGOT) 21 U/L (15-37); Alanine Aminotransfer ALT/SGPT 24 U/L (13-56); Albumin, Serum 3.1 g/dL (3.2-5.0); Alkaline Phosphatase 127 U/L (45-117); Anion Gap 5 (5-15); BUN 23 mg/dL (7-18); BUN/Creat Ratio 21.3 RATIO (10-20); Calcium,Total 9.6 mg/dL (8.5-10.1); Chloride 116 mmol/L (98-107); Cholesterol 169 mg/dL (200); Creatinine, Serum 1.08 mg/dL (0.55-1.02); EST Glomerular Filtration Rate 53 mL/min (>60); Est Glom Filt Rate - Afr Amer 64 mL/min (>60); Globulin 3.5 g/dL (2.2-4.2); Glucose 104 mg/dL (74-106); High Density Lipoprotein 50 mg/dL; Potassium 4.8 mmol/L (3.5-5.1); Protein, Total 6.6 g/dL (6.4-8.2); Sodium Level 143 mmol/L (136-145); Thyroid Stim Hormone (TSH) 3.71 uIU/mL (0.358-3.74); Triglycerides 144 mg/dL; Very Low Density Lipoprotein 29 mg/dL (5-40)
== END ==
LOC: OLS.SWAL 05:00
PROVIDERS: Visit Provider Internal Medicine
DX: E78.49 Other hyperlipidemia (principal); E11.9 Type 2 diabetes mellitus without complications; I10 Essential (primary) hypertension
CPT/HCPCS: 36415; 80053; 80061; 83036; 84443

== ENCOUNTER → 2022-09-28 | Outpatient (REF) | payer MEDICARE, MEDICAID, SELFPAY ==
[2022-09-29 07:26] LABS: Bacteria 0 SEEN /hpf (None Seen); Mucous, Urine 0 SEEN /hpf (<or=2+); Red Blood Cells-Urine 0 SEEN /hpf (0-5); White Blood Cells 0 SEEN /hpf (0-5)
[2022-09-29 07:51] LABS: Color, Urine Yellow (Yellow); Glucose, Dipstick Normal (Normal); Ketone-Dipstick Negative (Negative); Leukocyte Esterase-Dipstick Negative /ul (Negative); Nitrite-Dipstick Negative (Negative); Occult Blood-Urine Negative /ul (Negative); Protein-Dipstick Negative (Negative); Urine Bilirubin Dipstick Negative (Negative); Urine Clarity Sl. Cloudy (Clear); Urine Urobilinogen Normal (Normal); Urine pH 6.5 (5.0 - 8.0)
[2022-09-29 08:06] LABS: Squamous Epithelial Cells - UA 0-5 SEEN /hpf (5-10)
== END ==
LOC: OLS.SWAL 10:30
PROVIDERS: Referring Provider Internal Medicine; Visit Provider Internal Medicine
DX: N39.0 Urinary tract infection, site not specified (principal)
CPT/HCPCS: 81001; 87086; 87088

== ENCOUNTER → 2022-11-12 | Outpatient (REF) | payer MEDICARE, MEDICAID, SELFPAY ==
[2022-11-12 06:56] LABS: Absolute Lymphocyte Count 2.34 X10^3/uL (0.83-4.51); Absolute Neutrophil Count 4.6 X10^3/uL (2.0-7.7); Basophil# 0.05 X10^3/uL; Basophil% 0.6 % (0-1); Eosinophil# 0.15 X10^3/uL; Eosinophils% 1.9 % (0-5); Hematocrit 35.1 % (37-47); Lymphocyte # 2.34 X10^3/ul (0.83-4.51); Lymphocyte % 29.8 % (19-41); Mean Corp Hgb Conc 31.3 g/dL (32-36); Mean Corpuscular Volume 92.6 fL (81-99); Mean Platelet Vol. 11.5 fl (6.2-12.0); Monocyte# 0.65 X10^3/uL; Monocyte% 8.3 % (0-10); NRBC Flagged by Analyzer 0 % (0-5); Neutrophil # 4.63 X10^3/uL (2.7-7.7); Neutrophil % 59.1 % (47-70); Platelet Count 201 K/mm3 (150-450); RBC Distribution Width CV 15.1 % (11.6-14.6); RBC Distribution Width SD 51.8 fl (35.1-43.9); Red Blood Count 3.79 M/mm3 (4.2-5.4); White Blood Count 7.8 K/mm3 (4.4-11.0)
[2022-11-12 07:02] LABS: Anion Gap 4 (5-15); BUN 22 mg/dL (7-18); BUN/Creat Ratio 21.4 RATIO (10-20); Calcium,Total 9.7 mg/dL (8.5-10.1); Chloride 114 mmol/L (98-107); Creatinine, Serum 1.03 mg/dL (0.55-1.02); EST Glomerular Filtration Rate 56 mL/min (>60); Est Glom Filt Rate - Afr Amer 67 mL/min (>60); Glucose 99 mg/dL (74-106); Potassium 4.4 mmol/L (3.5-5.1); Sodium Level 141 mmol/L (136-145)
== END ==
LOC: OLS.SWAL 05:00
PROVIDERS: Visit Provider Internal Medicine
DX: I10 Essential (primary) hypertension (principal); R42 Dizziness and giddiness
CPT/HCPCS: 36415; 80048; 85025

== ENCOUNTER → 2022-12-01 | Outpatient (CLI) | payer MEDICARE, MEDICAID, SELFPAY | END | disposition home or self-care (01) | PROVIDERS: PCP Internal Medicine; Referring Provider Nurse Practitioner Gerontology; Visit Provider Nurse Practitioner Gerontology | DX: I48.0 Paroxysmal atrial fibrillation (principal) | CPT/HCPCS: 93225; 93226 ==

== ENCOUNTER → 2022-12-02 | Outpatient (REF) | payer MEDICARE, MEDICAID, SELFPAY ==
[2022-12-02 09:13] LABS: ALB/GLOB Ratio 0.8 RATIO (0.9-2.4); AST(SGOT) 28 U/L (15-37); Alanine Aminotransfer ALT/SGPT 34 U/L (13-56); Albumin, Serum 2.8 g/dL (3.2-5.0); Alkaline Phosphatase 141 U/L (45-117); Anion Gap 8 (5-15); BUN 27 mg/dL (7-18); BUN/Creat Ratio 24.3 RATIO (10-20); Calcium,Total 9.8 mg/dL (8.5-10.1); Chloride 114 mmol/L (98-107); Cholesterol 174 mg/dL (200); Creatinine, Serum 1.11 mg/dL (0.55-1.02); EST Glomerular Filtration Rate 51 mL/min (>60); Est Glom Filt Rate - Afr Amer 62 mL/min (>60); Globulin 3.7 g/dL (2.2-4.2); Glucose 103 mg/dL (74-106); High Density Lipoprotein 45 mg/dL; Potassium 4.5 mmol/L (3.5-5.1); Protein, Total 6.5 g/dL (6.4-8.2); Sodium Level 142 mmol/L (136-145); Thyroid Stim Hormone (TSH) 4.84 uIU/mL (0.358-3.74); Triglycerides 128 mg/dL; Very Low Density Lipoprotein 26 mg/dL (5-40)
[2022-12-02 09:16] LABS: Hemoglobin A1c 6.1 % (3.8-5.6)
== END ==
LOC: OLS.SWAL 05:00
PROVIDERS: PCP Internal Medicine; Visit Provider Internal Medicine
DX: E11.9 Type 2 diabetes mellitus without complications (principal); I10 Essential (primary) hypertension; E78.49 Other hyperlipidemia
CPT/HCPCS: 36415; 80053; 80061; 83036; 84443

== ENCOUNTER → 2023-01-02 | Outpatient (REF) | payer MEDICARE, MEDICAID, SELFPAY ==
[2023-01-02 08:20] LABS: Thyroid Stim Hormone (TSH) 3.18 uIU/mL (0.358-3.74)
== END ==
LOC: OLS.SWAL 05:00
PROVIDERS: PCP Internal Medicine; Visit Provider Internal Medicine
DX: I10 Essential (primary) hypertension (principal); E78.49 Other hyperlipidemia
CPT/HCPCS: 36415; 84443

== ENCOUNTER → 2023-03-02 | Outpatient (REF) | payer MEDICARE, MEDICAID, SELFPAY ==
[2023-03-02 06:46] LABS: ALB/GLOB Ratio 0.8 RATIO (0.9-2.4); AST(SGOT) 20 U/L (15-37); Alanine Aminotransfer ALT/SGPT 27 U/L (13-56); Albumin, Serum 2.8 g/dL (3.2-5.0); Alkaline Phosphatase 144 U/L (45-117); Anion Gap 3 (5-15); BUN 22 mg/dL (7-18); BUN/Creat Ratio 20.8 RATIO (10-20); Calcium,Total 9.2 mg/dL (8.5-10.1); Chloride 115 mmol/L (98-107); Cholesterol 138 mg/dL (200); Creatinine, Serum 1.06 mg/dL (0.55-1.02); EST Glomerular Filtration Rate 54 mL/min (>60); Est Glom Filt Rate - Afr Amer 65 mL/min (>60); Globulin 3.5 g/dL (2.2-4.2); Glucose 103 mg/dL (74-106); High Density Lipoprotein 43 mg/dL; Potassium 4.4 mmol/L (3.5-5.1); Protein, Total 6.3 g/dL (6.4-8.2); Sodium Level 141 mmol/L (136-145); Thyroid Stim Hormone (TSH) 4.73 uIU/mL (0.358-3.74); Triglycerides 126 mg/dL; Very Low Density Lipoprotein 25 mg/dL (5-40)
== END ==
LOC: OLS.SWAL 05:00
PROVIDERS: PCP Internal Medicine; Visit Provider Internal Medicine
DX: E78.49 Other hyperlipidemia (principal); I10 Essential (primary) hypertension; E11.9 Type 2 diabetes mellitus without complications
CPT/HCPCS: 36415; 80053; 80061; 83036; 84443

== ENCOUNTER → 2023-06-01 | Outpatient (REF) | payer MEDICAID, SELFPAY ==
[2023-06-01 08:54] LABS: ALB/GLOB Ratio 0.8 RATIO (0.9-2.4); AST(SGOT) 22 U/L (15-37); Alanine Aminotransfer ALT/SGPT 34 U/L (13-56); Albumin, Serum 2.9 g/dL (3.2-5.0); Alkaline Phosphatase 155 U/L (45-117); Anion Gap 6 (5-15); BUN 23 mg/dL (7-18); BUN/Creat Ratio 24.1 RATIO (10-20); Calcium,Total 9.5 mg/dL (8.5-10.1); Chloride 115 mmol/L (98-107); Cholesterol 150 mg/dL (200); Creatinine, Serum 0.95 mg/dL (0.55-1.02); EST Glomerular Filtration Rate 61 mL/min (>60); Est Glom Filt Rate - Afr Amer 73 mL/min (>60); Globulin 3.7 g/dL (2.2-4.2); Glucose 111 mg/dL (74-106); High Density Lipoprotein 44 mg/dL; Potassium 4.2 mmol/L (3.5-5.1); Protein, Total 6.6 g/dL (6.4-8.2); Sodium Level 142 mmol/L (136-145); Thyroid Stim Hormone (TSH) 4.33 uIU/mL (0.358-3.74); Triglycerides 162 mg/dL; Very Low Density Lipoprotein 32 mg/dL (5-40)
== END | disposition home or self-care (01) ==
LOC: OLS.SWAL 04:00
PROVIDERS: PCP Internal Medicine; Referring Provider Internal Medicine; Visit Provider Internal Medicine
DX: E11.9 Type 2 diabetes mellitus without complications (principal); I10 Essential (primary) hypertension; E78.49 Other hyperlipidemia
CPT/HCPCS: 36415; 80053; 80061; 83036; 84443

== ENCOUNTER → 2023-06-23 | Outpatient (CLI) | payer MEDICARE, MEDICAID, SELFPAY ==
--- NOTE | 2023-06-23 10:19 | ECHOD_ITS ---
Reason For Study: VALVE REPLACEMENT Procedure This was a 2D Doppler, Color Flow transthoracic echocardiogram. Technically difficult study due to body habitus. Definity deferred due to no IV access. Several IV attempts made. Exam performed in department. Left Ventricle Moderate concentric left ventricular hypertrophy. The left ventricular ejection fraction is 65 %. Stage 2 diastolic dysfunction. Right Ventricle Moderately dilated right ventricle. ICD or pacer leads identified within the right ventricle. Normal systolic function. Atria There is severe biatrial dilatation. ICD or pacer leads identified within the right atrium. Mitral Valve Moderate mitral annular calcification. Mild (1+) mitral valve insufficiency. Tricuspid Valve Moderate (2+) tricuspid valve insufficiency. Right ventricular systolic pressure estimated to be 46 mmHg. Aortic Valve Moderate aortic stenosis. Bioprosthetic aortic valve. Pulmonic Valve The pulmonic valve is not well visualized. Great Vessels The aortic root is not well visualized. Pericardium/Pleural No pericardial effusion. MMode/2D Measurements & Calculations LVIDd: 3.9 cm IVSd: 1.4 cm LVOT diam: 2.0 cm LVIDs: 2.5 cm LVPWd: 1.3 cm LVOT area: 3.1 cm2 FS: 35.2 % Ao root diam: 3.0 cm LAV(MOD-bp): 67.9 ml LA A4 area: 21.6 cm2 LAV(MOD-bp) Indexed: 33.4 ml/m2 LAV(MOD-sp2): 63.5 ml LAV(MOD-sp4): 63.9 ml LA dimension(2D): 5.4 cm TAPSE: 1.7 cm RA A4 area: 17.2 cm2 Time Measurements MV dec time: 0.37 sec Doppler Measurements & Calculations MV E max dez: 71.6 cm/sec Lat Peak E' Dez: 7.2 cm/sec Med Peak E' Dez: 4.7 cm/sec MV A max dez: 99.4 cm/sec E/E' lat: 10.0 E/E' med: 15.4 MV E/A: 0.72 MV V2 max: 100.6 cm/sec MV dec slope: 194.8 cm/sec2 Ao V2 max: 324.7 cm/sec MV max P.1 mmHg Ao max P.2 mmHg MV V2 mean: 58.6 cm/sec Ao V2 mean: 219.1 cm/sec MV mean P.6 mmHg Ao mean P.2 mmHg MV V2 VTI: 40.5 cm Ao V2 VTI: 72.6 cm MVA(VTI): 2.0 cm2 AV (velocity ratio): 0.36 SPENCER(I,D): 1.1 cm2 SPENCER(V,D): 1.2 cm2 LV V1 max: 128.1 cm/sec SV(LVOT): 80.3 ml PA V2 max: 98.5 cm/sec LV V1 max P.6 mmHg PA V2 mean: 73.0 cm/sec LV V1 mean P.9 mmHg LV V1 mean: 94.9 cm/sec LV V1 VTI: 26.2 cm TR max dez: 280.0 cm/sec TR max P.4 mmHg ECHO/Echo Complete Interpretation Summary Moderate concentric left ventricular hypertrophy. The left ventricular ejection fraction is 65 %. Stage 2 diastolic dysfunction. Moderately dilated right ventricle. There is severe biatrial dilatation. Mild (1+) mitral valve insufficiency. Moderate (2+) tricuspid valve insufficiency. Right ventricular systolic pressure estimated to be 46 mmHg. Moderate aortic stenosis. Ordering Physician: Blnaca Kaufman Referring Physician: Blanca Kaufman Performed By: Verito Hopkins RCS
== END | disposition home or self-care (01) ==
PROVIDERS: PCP Internal Medicine; Referring Provider Nurse Practitioner Gerontology; Visit Provider Nurse Practitioner Gerontology
DX: I35.0 Nonrheumatic aortic (valve) stenosis (principal); Z95.3 Presence of xenogenic heart valve
CPT/HCPCS: 93306; Q9957; A4216

== ENCOUNTER → 2023-08-28 | Outpatient (REF) | payer MEDICARE, MEDICAID, SELFPAY ==
--- OUTSIDE RECORDS SUMMARY | 2023-08-28 05:25 | XMS RPT_ITS | CCD ---
Author Name Unknown Address [address] [place] [address] Organization [facility] Care Team Providers Care Hris Administrator Name Role Phone MARBELLA HOLLINS Unavailable Unavailable PHYSICIAN, NONE Unavailable Unavailable Zheng RASCON, Davon Head Primary Care Provider [phone] Davon Bradley MD Primary Care Provider [phone] Davon Bradley MD Primary Care Provider [phone] Allergies Allergy Classification Reported Allergen(s) Allergy Type Date of Onset Reaction(s) Facility (14 sources) Penicillins Propensity to adverse reactions 6 Other: See Comments [facility] [place] Work Phone: (20 sources) Seasonal allergy Propensity to adverse reactions 4 Intolerance [facility] [place] Work Phone: (6 sources) Penicillins Propensity to adverse reactions to drug 6 Other: See Comments [facility] [place] Work Phone: Medications Current Medications Medication Drug Class(es) Dates Sig (Normalized) Sig (Original) acetaminophen 500 mg oral tablet (3 sources) Start: 01-21-2022 End: 02-20-2022 take 2 tablets by mouth every six hours as needed acetaminophen (TYLENOL EXTRA STRENGTH) 500 mg tablet Take 2 tablets by mouth every 6 hours as needed for pain. 56 tablet 2 01/21/2022 02/20/2022 Active Completed/Discontinued Medications Medication Drug Class(es) Dates Sig (Normalized) Sig (Original) [id number] 200 actuat albuterol 0.09 mg/actuat metered dose inhaler (20 sources) beta2-Adrenergic Agonist Start: 07-01-2018 take 2 puff(s) by inhalation every six hours as needed for wheezing albuterol HFA (PROVENTIL HFA) 90 mcg/actuation inhaler Inhale 2 Puffs as instructed every 6 hours as needed for Wheezing/Shortnes s of Breath. 0 07/01/2018 Active Problems Active Problems Problem Classification Problem Date Documented Date Episodic/Chronic Asthma (20 sources) Asthma; Translations: [Unspecified asthma, uncomplicated] Onset: 07-12-2007 12-01-2016 Chronic Cardiac dysrhythmias (20 sources) Paroxysmal atrial fibrillation; Translations: [Paroxysmal atrial fibrillation] Onset: 05-24-2019 05-24-2019 Chronic Conduction disorders (20 sources) Cardiac pacemaker in situ; Translations: [Presence of cardiac pacemaker] Onset: 01-07-2019 05-10-2020 Chronic Diabetes mellitus without complication (20 sources) Diabetes mellitus without complication; Translations: [Type 2 diabetes mellitus without complications] Onset: 04-15-2013 06-15-2015 Chronic Disorders of lipid metabolism (20 sources) Hyperlipidemia; Translations: [Hyperlipidemia, unspecified] Onset: 06-17-2007 12-01-2016 Chronic Esophageal disorders (20 sources) Gastroesophageal reflux disease; Translations: [Gastro-esophageal reflux disease without esophagitis] Onset: 07-12-2007 12-01-2016 Chronic Essential hypertension (20 sources) Essential hypertension; Translations: [Essential (primary) hypertension] Onset: 06-17-2007 12-01-2016 Chronic Genitourinary congenital anomalies (3 sources) Fusion of vulva; 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 Genitourinary symptoms and ill-defined conditions (1 source) Dribbling of urine; Translations: [Post-void dribbling] Chronic Genitourinary symptoms and ill-defined conditions (3 sources) History of urinary tract infection; Translations: [Personal history of urinary (tract) infections] Episodic Heart valve disorders (20 sources) History of aortic valve replacement; Translations: [Presence of prosthetic heart valve] Onset: 03-03-2013 05-24-2019 Chronic Menopausal disorders (2 sources) Atrophy of vagina; 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 Other inflammatory condition of skin (1 source) Pruritus of vulva; Translations: [Pruritus vulvae] Episodic Other nutritional; endocrine; and metabolic disorders (7 sources) Obese class I; Translations: [Obesity, unspecified] Onset: 01-21-2022 01-21-2022 Chronic Other screening for suspected conditions (not mental disorders or infectious disease) (1 source) Patient encounter status; Translations: [Encounter for screening mammogram for malignant neoplasm of breast] Episodic Residual codes; unclassified (2 sources) Postoperative state; Translations: [Other specified postprocedural states] Episodic Past or Other Problems Problem Classification Problem Date Documented Da te Episodic/Chronic Allergic reactions (20 sources) Urticaria; Translations: [Urticaria, unspecified] Onset: 10-25-2021 Episodic Conditions associated with dizziness or vertigo (20 sources) Dizziness; Translations: [Dizziness and giddiness] Onset: 05-25-2020 05-25-2020 Episodic Other inflammatory condition of skin (20 sources) Lichen planus; Translations: [Lichen planus, unspecified] Onset: 03-09-2014 03-09-2014 Episodic Results Test Name Value Interpretation Reference Range Facil ity Vital Signs Date Time Vital Sign Value Performing Clinician Faci lity 12-25-2021 09:22-0400 Diastolic blood pressure 82 mm[Hg] Indigo Mayfield APRN.MAINTENANCE ANALYST Work Phone: [facility] [place] 12-25-2021 09:22-0400 Systolic blood pressure 136 mm[Hg] Indigo Mayfield APRN.CNP Work Phone: [facility] [place] 12-16-2021 14:10-0400 Diastolic blood pressure 74 mm[Hg] Davon Bradley MD Work Phone: [facility] [place] 12-16-2021 14:10-0400 Heart rate 60 /min Davon Bradley MD Work Phone: [facility] [place] 12-16-2021 14:10-0400 Systolic blood pressure 114 mm[Hg] Davon Bradley MD Work Phone: [facility] [place] 12-16-2021 14:04-0400 Body temperature 97.3 [degF] Davon Bradley MD Work Phone: [facility] [place] 12-16-2021 14:04-0400 Body weight 80.2 kg Davon Bradley MD Work Phone: [facility] [place] 12-05-2021 13:47-0400 Body weight 80.29 kg Cami Farris APRN.MAINTENANCE ANALYST Work Phone: [facility] [place] 12-05-2021 13:47-0400 Diastolic blood pressure 76 mm[Hg] Cami Farris APRN.MAINTENANCE ANALYST Work Phone: [facility] [place] 12-05-2021 13:47-0400 Systolic blood pressure 140 mm[Hg] Cami Farris APRN.MAINTENANCE ANALYST Work Phone: [facility] [place] Encounters Encounter Date Encounter Type Care Provider Facility Start: 05-11-2023 ambulatory Sarah Diaz [facility] [place] Procedures Date Procedure Procedure Detail Performing Clinician Start: 12-05-2021 Urnls dip stick/tabl et rgnt auto w/o microscopy Cami Farris APRN.MAINTENANCE ANALYST Work Phone: Start: 06-12-2021 Adult depression scr eening assessment Davon Bradley MD Work Phone: Start: 09-07-2019 Colonoscopy Davon Keenan MD Work Phone: Start: 06-16-2018 Mammography Davon Keenan MD Work Phone: Plan of Treatment Date Care Activity Detail Author Start: 09-07-2029 Colonoscopy COLONOSCOPY [facility] Start: 09-07-2029 COLORECTAL CANCER SCREENING COLORECTAL CANCER SCREENING [facility] [place] Start: 04-03-2023 Influenza vaccination [facility] Start: 01-13-2023 End: 03-15-2023 ALBUMIN/CREAT RATIO RND UR ALBUMIN/CREAT RATIO RND UR Lab Routine Diabetes mellitus without complication (HCC) Expected: 01/13/2023, Expires: 03/15/2023 [facility] Work Phone: Immunizations Immunization Date Immunization Notes Care Provider Fa cility 09-24-2021 COVID-19 vaccine, ag e 12+ yr ([employer] [facility]) Davon Bradley MD Work Phone: [facility] [place] 06-12-2021 influenza, high-dose , quadrivalent vaccine (FLUZONE HIGH DOSE QUADRIVALENT) Davon Bradley MD Work Phone: [facility] Work Phone: 06-12-2021 influenza virus vacc ine, unspecified formulation Sarah Birmingham MA [facility] 05-10-2020 influenza, high-dose , quadrivalent vaccine (FLUZONE HIGH DOSE QUADRIVALENT) Davon Bradley MD Work Phone: [facility] Work Phone: 05-24-2019 influenza, high dose seasonal, preservative-free Davon Bradley MD Work Phone: [facility] 06-09-2018 influenza, high dose seasonal, preservative-free Davon Bradley MD Work Phone: [facility] 05-12-2018 influenza, seasonal, injectable, preservative free Davon Bradley MD Work Phone: [facility] 06-12-2017 influenza, high dose seasonal, preservative-free Davon Bradley MD Work Phone: [facility] [place] 06-20-2016 influenza, high dose seasonal, preservative-free Davon Bradley MD Work Phone: [facility] Work Phone: 12-17-2015 pneumococcal conjuga te vaccine, 13 valent Davon Bradley MD Work Phone: [facility] 06-15-2015 influenza, high dose seasonal, preservative-free Davon Bradley MD Work Phone: [facility] Work Phone: 06-06-2014 influenza, seasonal, injectable Davon Bradley MD Work Phone: [facility] 05-19-2013 influenza virus vacc ine, unspecified formulation Davon Bradley MD Work Phone: [facility] 01-25-2013 pneumococcal polysaccharide vaccine, 23 valent Davon Bradley MD Work Phone: [facility] Work Phone: 05-10-2012 influenza virus vacc ine, whole virus Davon Bradley MD Work Phone: [facility] Work Phone: 04-26-2009 influenza virus vacc ine, unspecified formulation Davon Bradley MD Work Phone: [facility] 06-02-2008 influenza virus vacc ine, whole virus Davon Bradley MD Work Phone: [facility] Work Phone: 04-06-2008 pneumococcal polysaccharide vaccine, 23 valent Davon Bradley MD Work Phone: [facility] 11-23-2007 tetanus and diphther ia toxoids, adsorbed, preservative free, for adult use (2 Lf of tetanus toxoid and 2 Lf of diphtheria toxoid) Davon Bradley MD Work Phone: [facility] 06-03-2007 influenza virus vacc ine, unspecified formulation Davon Bradley MD Work Phone: [facility] Payers Date Payer Category Payer Unknown [id number] 2013 Medicare MEDICARE MEDICAR E A AND B [id number] 2013-Present [phone] [place] [address] Medicare [id number] 2013 Medicare MEDICARE MEDICAR E A AND B [id number] 2013-Present [phone] [place] [address] Medicare [id number] Social History Date Type Detail Facility Tobacco smoking stat us [facility] Never smoked tobacco [facility] Work Phone: Start: 09-24-2021 End: 02-19-2022 Alcohol intake Current non-drinker of alcohol (finding) [facility] Start: 1950 Sex Assigned At Not on file [facility] Start: 10-13-2021 End: 01-21-2022 Exposure to SARS-CoV-2 (event) Not sure [facility] Start: 02-19-2022 End: 08-29-2022 History of Social function [facility] Work Phone: Start: 02-19-2022 End: 08-29-2022 Tobacco use panel [facility] Work Phone: Adult Depression Screening Assessment 0 [facility] Work Phone: Medical Equipment Procedure Code Equipment Code Equipment Origin al Text Equipment Identifier Dates Test blood sugar (s) 1 times daily. Dx: Type 2 DM - Controlled E11.9 Insulin: No Start: 11-27-2020 Clinical Notes 09-28-2012 to 05-11-2023 Sarah Birmingham MA - 05/11/2023 8:22 AM EDTPatient InstructionsIndigo Mayfield APRN.CNP - 02/19/2022 8:00 AM EDTPatient InstructionsIndigo Mayfield APRN.CNP - 02/05/2022 8:00 AM EDT Note Date & Type Note Facility 05-11-2023 Note Patient Outreach (MJ HUSTONAV) CLARI STEPHENS ([id number]) 1950 F Date Time Provider Department 05/11/23 SARAH BIRMINGHAMV During your visit today, we recorded the following information about you: Sarah Birmingham MA 05/11/2023 2:19 PM Signed POPULATION HEALTH NAVIGATION OUTREACH Action/ LVM DGSEHART MESSAGE SENT ANNUAL MEDICARE WELLNESS BP Controlled (<130/80) due on 11/27/2021 HbA1C due on 06/18/2022 Advance Directive Discussion Never done Annual PCP Team Chronic Disease Visit due on 12/16/2022 Influenza Vaccine(1) due on 04/03/2023 Patient Identified by Name and : NO Outreach Outcome/Action Unable to reach patient: Left message [employer] message sent Did you use a PCP flex slot to schedule this appointment? No Reason for Outreach Care Gap or Scheduling/Wellness visits Payer: Payor: MEDICARE / Plan: MEDICARE A AND B / Product Type: Medicare / Care Gap Reviewed:: Annual Wellness visit Controlling Blood Pressure HBA1C Flu Vaccine Reminder: Reminder note to check Health Maintenance for items below Health Maintenance items due: Shingrix Vaccine(1 of 2) Never done DTaP,Tdap,Td Vaccine(1 - Tdap) due on 11/24/2007 Hepatitis B Vaccine(1 of 3 - Risk 3-dose series) Never done Covid-19 Vaccine(4 - Moderna series) due on 11/19/2021 BP Controlled (<130/80) due on 11/27/2021 Diabetic Foot Exam due on 03/14/2022 Dilated Retinal Exam due on 04/03/2022 Urine Albumin:Creatinine Ratio due on 06/12/2022 HbA1C due on 06/18/2022 Advance Directive Discussion Never done Depression Assessment Never done LDL Cholesterol due on 12/16/2022 Annual PCP Team Chronic Disease Visit due on 12/16/2022 Influenza Vaccine(1) due on 04/03/2023 Navigation Signature: Sarah Birmingham MA May 11, 2023 8:22 AM Allergies As of Date: 05/11/2023 Noted Allergy Reaction PENICILLINS 12/03/2005 14 - Other: See Comments Comments: Childhood reaction. Tolerates cephalosporins SEASONAL ALLERGIES 02/01/2014 5 - Intolerance Comments: Sneezing and running nose (sinus issues) Date Reviewed: 02/19/2022 Reviewed by: Cami Meraz, RN - Fully Assessed Reason for Visit: Population Health Navigation Outreach [3910] Cmt: ACO BP AND DM Prescriptions as of 05/11/2023 - oxyCODONE IR (ROXICODONE) 5 mg immediate release tablet Take 1 tablet by mouth every 6 hours as needed for pain for up to 5 doses. - estradiol 0.01% estriol 0.01% topical cream (CPD) Apply 1 gram (4 clicks) vaginally twice weekly - amLODIPine (NORVASC) 2.5 mg tablet Take 1 tablet by mouth once daily. - metFORMIN (GLUCOPHAGE) 500 mg tablet TABLET BY MOUTH EVERY DAY WITH BREAKFAST - pravastatin (PRAVACHOL) 40 mg tablet Take 1 tablet by mouth daily at bedtime. - estradiol (ESTRACE) 0.01 % (0.1 mg/gram) vaginal cream Use 1 g vaginally two times a week, THEN 1 g two times a week. Apply to affected area daily for 2 weeks then twice weekly.. - lisinopril (ZESTRIL, PRINIVIL) 20 mg tablet Take 1 tablet by mouth twice daily. - famotidine (PEPCID) 40 mg tablet Take 1 tablet by mouth once daily. - aspirin 81 mg chewable tablet Take 1 tablet by mouth once daily. - meclizine (ANTIVERT) 25 mg tab Take 1 tablet by mouth every 6 hours as needed (dizziness). - nystatin (NYSTOP) powder Apply 1 application to affected area four times daily. - blood sugar diagnostic (BLOOD GLUCOSE TEST) test strip Test blood sugar(s) 1 times daily. Dx: Type 2 DM - Controlled E11.9 Insulin: No - Lancets lancets Test blood sugar(s) 1 times daily. Dx: Type 2 DM - Controlled E11.9 Insulin: No - clobetasol (TEMOVATE) 0.05 % ointment Apply 1 application to affected area daily at bedtime. TO AFFECTED AREA for 4 weeks. - Blood Pressure Monitor kit Use to monitor blood pressure as directed. - albuterol HFA (PROVENTIL HFA) 90 mcg/actuation inhaler Inhale 2 Puffs as instructed every 6 hours as needed for Wheezing/Shortness of Breath. - Cholecalciferol, Vitamin D3, 2,000 unit cap Take 1 capsule by mouth once daily. - sotalol (BETAPACE) 80 mg tablet Take 1 tablet by mouth twice daily. - fluticasone-vilanterol (BREO ELLIPTA) 200-25 mcg/dose inhaler Inhale 1 Inhalation as instructed once daily. Inhale one puff once daily. () Problem List As Of Date 05/11/2023 Noted Resolved Aortic valve disorders [I35.9] 12/03/2005 04/19/2013 Hyperlipemia [E78.5] 06/17/2007 Obesity, Unspecified [E66.9] 06/17/2007 06/07/2014 Essential hypertension [I10] 06/17/2007 Asthma [J45.909] 07/12/2007 Esophageal reflux [K21.9] 07/12/2007 Routine general medical examination at 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 [facility] 05-11-2023 Note HNO ID: [id number] Author: Sarah Birmingham MA Service: ? Author Type: Office Services Manager Type: Progress Notes Filed: 05/11/2023 2:19 PM Note Text: POPULATION HEALTH NAVIGATION OUTREACH Action/FYI LVM [employer] MESSAGE SENT ANNUAL MEDICARE WELLNESS BP Controlled (<130/80) due on 11/27/2021 HbA1C due on 06/18/2022 Advance Directive Discussion Never done Annual PCP Team Chronic Disease Visit due on 12/16/2022 Influenza Vaccine(1) due on 04/03/2023 Patient Identified by Name and : NO Outreach Outcome/Action Unable to reach patient: Left message [employer] message sent Did you use a PCP flex slot to schedule this appointment? No Reason for Outreach Care Gap or Scheduling/Wellness visits Payer: Payor: MEDICARE / Plan: MEDICARE A AND B / Product Type: Medicare / Care Gap Reviewed:: Annual Wellness visit Controlling Blood Pressure HBA1C Flu Vaccine Reminder: Reminder note to check Health Maintenance for items below Health Maintenance items due: Shingrix Vaccine(1 of 2) Never done DTaP,Tdap,Td Vaccine(1 - Tdap) due on 11/24/2007 Hepatitis B Vaccine(1 of 3 - Risk 3-dose series) Never done Covid-19 Vaccine(4 - Moderna series) due on 11/19/2021 BP Controlled (<130/80) due on 11/27/2021 Diabetic Foot Exam due on 03/14/2022 Dilated Retinal Exam due on 04/03/2022 Urine Albumin:Creatinine Ratio due on 06/12/2022 HbA1C due on 06/18/2022 Advance Directive Discussion Never done Depression Assessment Never done LDL Cholesterol due on 12/16/2022 Annual PCP Team Chronic Disease Visit due on 12/16/2022 Influenza Vaccine(1) due on 04/03/2023 Navigation Signature: Sarah Birmingham MA May 11, 2023 8:22 AM [facility] 05-11-2023 History of Presen t illness Narrative POPULATION HEALTH NAVIGATION OUTREACH Action/I LVM [employer] MESSAGE SENT ANNUAL MEDICARE WELLNESS BP Controlled (<130/80) due on 11/27/2021 HbA1C due on 06/18/2022 Advance Directive Discussion Never done Annual PCP Team Chronic Disease Visit due on 12/16/2022 Influenza Vaccine(1) due on 04/03/2023 Patient Identified by Name and : NO Outreach Outcome/Action Unable to reach patient: Left message [employer] message sent Did you use a PCP flex slot to schedule this appointment? No Reason for Outreach Care Gap or Scheduling/Wellness visits Payer: Payor: MEDICARE / Plan: MEDICARE A AND B / Product Type: Medicare / Care Gap Reviewed:: Annual Wellness visit Controlling Blood Pressure HBA1C Flu Vaccine Reminder: Reminder note to check Health Maintenance for items below Health Maintenance items due: Shingrix Vaccine(1 of 2) Never done DTaP,Tdap,Td Vaccine(1 - Tdap) due on 11/24/2007 Hepatitis B Vaccine(1 of 3 - Risk 3-dose series) Never done Covid-19 Vaccine(4 - Moderna series) due on 11/19/2021 BP Controlled (<130/80) due on 11/27/2021 Diabetic Foot Exam due on 03/14/2022 Dilated Retinal Exam due on 04/03/2022 Urine Albumin:Creatinine Ratio due on 06/12/2022 HbA1C due on 06/18/2022 Advance Directive Discussion Never done Depression Assessment Never done LDL Cholesterol due on 12/16/2022 Annual PCP Team Chronic Disease Visit due on 12/16/2022 Influenza Vaccine(1) due on 04/03/2023 Navigation Signature: Sarah Birmingham MA May 11, 2023 8:22 AM documented in this encounter [facility] 01-13-2023 Note Patient Outreach (IN TMMN) CLARI STEPHENS ([id number]) 1950 F Date Time Provider Department 01/13/23 DAVON BRADLEY During your visit today, we recorded the following information about you: Allergies As of Date: 01/13/2023 Noted Allergy Reaction PENICILLINS 12/03/2005 14 - Other: See Comments Comments: Childhood reaction. Tolerates cephalosporins SEASONAL ALLERGIES 02/01/2014 5 - Intolerance Comments: Sneezing and running nose (sinus issues) Date Reviewed: 02/19/2022 Reviewed by: Cami Meraz RN - Fully Assessed Visit Diagnosis:Diabetes mellitus without complication (HCC) [E11.9] Order(s):ALBUMIN/CREAT RATIO RND UR [SQUACR] Order #: [id number] FUTURE HGB A1C [KLQIU9C] Order #: [id number] FUTURE Prescriptions as of 01/16/2023 - oxyCODONE IR (ROXICODONE) 5 mg immediate release tablet Take 1 tablet by mouth every 6 hours as needed for pain for up to 5 doses. - estradiol 0.01% estriol 0.01% topical cream (CPD) Apply 1 gram (4 clicks) vaginally twice weekly - amLODIPine (NORVASC) 2.5 mg tablet Take 1 tablet by mouth once daily. - metFORMIN (GLUCOPHAGE) 500 mg tablet TABLET BY MOUTH EVERY DAY WITH BREAKFAST - pravastatin (PRAVACHOL) 40 mg tablet Take 1 tablet by mouth daily at bedtime. - estradiol (ESTRACE) 0.01 % (0.1 mg/gram) vaginal cream Use 1 g vaginally two times a week, THEN 1 g two times a week. Apply to affected area daily for 2 weeks then twice weekly.. - lisinopril (ZESTRIL, PRINIVIL) 20 mg tablet Take 1 tablet by mouth twice daily. - famotidine (PEPCID) 40 mg tablet Take 1 tablet by mouth once daily. - aspirin 81 mg chewable tablet Take 1 tablet by mouth once daily. - meclizine (ANTIVERT) 25 mg tab Take 1 tablet by mouth every 6 hours as needed (dizziness). - nystatin (NYSTOP) powder Apply 1 application to affected area four times daily. - blood sugar diagnostic (BLOOD GLUCOSE TEST) test strip Test blood sugar(s) 1 times daily. Dx: Type 2 DM - Controlled E11.9 Insulin: No - Lancets lancets Test blood sugar(s) 1 times daily. Dx: Type 2 DM - Controlled E11.9 Insulin: No - clobetasol (TEMOVATE) 0.05 % ointment Apply 1 application to affected area daily at bedtime. TO AFFECTED AREA for 4 weeks. - Blood Pressure Monitor kit Use to monitor blood pressure as directed. - albuterol HFA (PROVENTIL HFA) 90 mcg/actuation inhaler Inhale 2 Puffs as instructed every 6 hours as needed for Wheezing/Shortness of Breath. - Cholecalciferol, Vitamin D3, 2,000 unit cap Take 1 capsule by mouth once daily. - sotalol (BETAPACE) 80 mg tablet Take 1 tablet by mouth twice daily. - fluticasone-vilanterol (BREO ELLIPTA) 200-25 mcg/dose inhaler Inhale 1 Inhalation as instructed once daily. Inhale one puff once daily. 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] 09/28/2012 06/07/2014 S/P aortic valve replacement [Z95.2] 03/03/2013 Diabetes mellitus without complication (HCC) [E*04/15/2013 Lichen planus [L43.9] 03/09/2014 Paroxysmal atrial fibrillation (HCC) [I48.0] 05/24/2019 Presence of permanent cardiac pacemaker [Z95.0] 01/07/2019 Dizziness [R42] 05/25/2020 Urticaria [L50.9] 10/25/2021 Obesity, Class I, BMI 30-34.9 [E66.9] 01/21/2022 Encounter Status:Closed by SONIA SIMS on 01/16/23 [facility] 11-11-2022 Note Patient Outreach (IN TMMN) CLARI STEPHENS ([id number]) 1950 F Date Time Provider Department 11/11/22 DAVON BRADLEY During your visit today, we recorded the following information about you: Allergies As of Date: 11/11/2022 Noted Allergy Reaction PENICILLINS 12/03/2005 14 - Other: See Comments Comments: Childhood reaction. Tolerates cephalosporins SEASONAL ALLERGIES 02/01/2014 5 - Intolerance Comments: Sneezing and running nose (sinus issues) Date Reviewed: 02/19/2022 Reviewed by: Cami Meraz RN - Fully Assessed Visit Diagnosis:Diabetes mellitus without complication (HCC) [E11.9] Order(s):ALBUMIN/CREAT RATIO RND UR [SQUACR] Order #: [id number] FUTURE HGB A1C [LDMYP7K] Order #: [id number] FUTURE Prescriptions as of 11/14/2022 - oxyCODONE IR (ROXICODONE) 5 mg immediate release tablet Take 1 tablet by mouth every 6 hours as needed for pain for up to 5 doses. - estradiol 0.01% estriol 0.01% topical cream (CPD) Apply 1 gram (4 clicks) vaginally twice weekly - amLODIPine (NORVASC) 2.5 mg tablet Take 1 tablet by mouth once daily. - metFORMIN (GLUCOPHAGE) 500 mg tablet TABLET BY MOUTH EVERY DAY WITH BREAKFAST - pravastatin (PRAVACHOL) 40 mg tablet Take 1 tablet by mouth daily at bedtime. - estradiol (ESTRACE) 0.01 % (0.1 mg/gram) vaginal cream Use 1 g vaginally two times a week, THEN 1 g two times a week. Apply to affected area daily for 2 weeks then twice weekly.. - lisinopril (ZESTRIL, PRINIVIL) 20 mg tablet Take 1 tablet by mouth twice daily. - famotidine (PEPCID) 40 mg tablet Take 1 tablet by mouth once daily. - aspirin 81 mg chewable tablet Take 1 tablet by mouth once daily. - meclizine (ANTIVERT) 25 mg tab Take 1 tablet by mouth every 6 hours as needed (dizziness). - nystatin (NYSTOP) powder Apply 1 application to affected area four times daily. - blood sugar diagnostic (BLOOD GLUCOSE TEST) test strip Test blood sugar(s) 1 times daily. Dx: Type 2 DM - Controlled E11.9 Insulin: No - Lancets lancets Test blood sugar(s) 1 times daily. Dx: Type 2 DM - Controlled E11.9 Insulin: No - clobetasol (TEMOVATE) 0.05 % ointment Apply 1 application to affected area daily at bedtime. TO AFFECTED AREA for 4 weeks. - Blood Pressure Monitor kit Use to monitor blood pressure as directed. - albuterol HFA (PROVENTIL HFA) 90 mcg/actuation inhaler Inhale 2 Puffs as instructed every 6 hours as needed for Wheezing/Shortness of Breath. - Cholecalciferol, Vitamin D3, 2,000 unit cap Take 1 capsule by mouth once daily. - sotalol (BETAPACE) 80 mg tablet Take 1 tablet by mouth twice daily. - fluticasone-vilanterol (BREO ELLIPTA) 200-25 mcg/dose inhaler Inhale 1 Inhalation as instructed once daily. Inhale one puff once daily. () Problem List As Of Date 11/11/2022 Noted Resolved Aortic valve disorders [I35.9] 12/03/2005 04/19/2013 Hyperlipemia [E78.5] 06/17/2007 Obesity, Unspecified [E66.9] 06/17/2007 06/07/2014 Essential hypertension [I10] 06/17/2007 Asthma [J45.909] 07/12/2007 Esophageal reflux [K21.9] 07/12/2007 Routine general medical examination at 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] 09/28/2012 06/07/2014 S/P aortic valve replacement [Z95.2] 03/03/2013 Diabetes mellitus without complication (HCC) [E*04/15/2013 Lichen planus [L43.9] 03/09/2014 Paroxysmal atrial fibrillation (HCC) [I48.0] 05/24/2019 Presence of permanent cardiac pacemaker [Z95.0] 01/07/2019 Dizziness [R42] 05/25/2020 Urticaria [L50.9] 10/25/2021 Obesity, Class I, BMI 30-34.9 [E66.9] 01/21/2022 Encounter Status:Closed by [employer] Project[employer]is Miguel on 11/14/22 [facility] 05-14-2022 Note Patient Outreach (IN TMMN) CLARI STEPHENS ([id number]) 1950 F Date Time Provider Department 05/14/22 DAVON BRADLEY During your visit today, we recorded the following information about you: Allergies As of Date: 05/14/2022 Noted Allergy Reaction PENICILLINS 12/03/2005 14 - Other: See Comments Comments: Childhood reaction. Tolerates cephalosporins SEASONAL ALLERGIES 02/01/2014 5 - Intolerance Comments: Sneezing and running nose (sinus issues) Date Reviewed: 02/19/2022 Reviewed by: Cami Meraz RN - Fully Assessed Visit Diagnosis:Encounter for screening mammogram for breast cancer [Z12.31] Order(s):[facility] SCREEN[facility] [[id number]] Order #: [id number] FUTURE Prescriptions as of 05/19/2022 - oxyCODONE IR (ROXICODONE) 5 mg immediate release tablet Take 1 tablet by mouth every 6 hours as needed for pain for up to 5 doses. - estradiol 0.01% estriol 0.01% topical cream (CPD) Apply 1 gram (4 clicks) vaginally twice weekly - amLODIPine (NORVASC) 2.5 mg tablet Take 1 tablet by mouth once daily. - metFORMIN (GLUCOPHAGE) 500 mg tablet TABLET BY MOUTH EVERY DAY WITH BREAKFAST - pravastatin (PRAVACHOL) 40 mg tablet Take 1 tablet by mouth daily at bedtime. - estradiol (ESTRACE) 0.01 % (0.1 mg/gram) vaginal cream Use 1 g vaginally two times a week, THEN 1 g two times a week. Apply to affected area daily for 2 weeks then twice weekly.. - lisinopril (ZESTRIL, PRINIVIL) 20 mg tablet Take 1 tablet by mouth twice daily. - famotidine (PEPCID) 40 mg tablet Take 1 tablet by mouth once daily. - aspirin 81 mg chewable tablet Take 1 tablet by mouth once daily. - meclizine (ANTIVERT) 25 mg tab Take 1 tablet by mouth every 6 hours as needed (dizziness). - nystatin (NYSTOP) powder Apply 1 application to affected area four times daily. - blood sugar diagnostic (BLOOD GLUCOSE TEST) test strip Test blood sugar(s) 1 times daily. Dx: Type 2 DM - Controlled E11.9 Insulin: No - Lancets lancets Test blood sugar(s) 1 times daily. Dx: Type 2 DM - Controlled E11.9 Insulin: No - clobetasol (TEMOVATE) 0.05 % ointment Apply 1 application to affected area daily at bedtime. TO AFFECTED AREA for 4 weeks. - Blood Pressure Monitor kit Use to monitor blood pressure as directed. - albuterol HFA (PROVENTIL HFA) 90 mcg/actuation inhaler Inhale 2 Puffs as instructed every 6 hours as needed for Wheezing/Shortness of Breath. - Cholecalciferol, Vitamin D3, 2,000 unit cap Take 1 capsule by mouth once daily. - sotalol (BETAPACE) 80 mg tablet Take 1 tablet by mouth twice daily. - fluticasone-vilanterol (BREO ELLIPTA) 200-25 mcg/dose inhaler Inhale 1 Inhalation as instructed once daily. Inhale one puff once daily. 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 Call office/go to ER if you are unable to urinate documented in this encounter [facility] [place] 02-19-2022 History of Presen t illness Narrative Female Pelvic Medicine & Reconstructive Surgery Post-Op Visit Clari Stephens is a 72 year old female who presents for a 4 Week post-op check s/p lysis of labial adhesions. JAVI post op 2 week on 02/05/2022: ASSESMENT: Clari Stephens is a 72 year old female who is post-op; stable and doing well post-operative course complicated by labial adhesions PLAN: Lengthy discussion with patient and daughter about the importance of applying vaginal estrogen cream and clobetasol to prevent the adhesions from worsening. Educated both daughter and patient on the following regimen: - Apply pea sized amount of clobetasol cream all over vaginal opening and labia while spreading labia every day - Apply 1 g of vaginal estrogen cream around vaginal opening with gentle spreading every night Just moved into a assisted living facility this past weekend. States she has been applying estrogen and clobetasol cream every day with gentle labial spreading. States she had bleeding for 3-4 days after last appointment, very light, after spreading. Since, she has not had any bleeding. Denies pain. States she is still able to void well, states urine is not trickling out and feels like she has a good stream. Post-op complications: yes, labial adhesion Bleeding: no Pain: no If you had pain related to your prolapse before surgery, has your pain resolved? Not Applicable Abnormal vaginal discharge: no Mine Boss offered:Patient declines OBJECTIVE: There were no vitals taken for this visit. General: Well appearing, alert, in no acute distress, well-hydrated, well nourished. Pelvic: Ext. Genitalia, Agglutination of labia majora ( about 1.5 cm) with 1 cm opening at the top and 1 cm opening at the bottom, able to release small amount of adhesions with gentle spreading at bottom. Vagina: unable to assess ASSESMENT: Clari Stephens is a 72 year old female who is post-op; with labial adhesions. PLAN: - Continue use of daily clobetasol and vaginal estrogen cream once daily for 1 month - Follow up in 1 month to assess adhesions - If adhesions have not worsened, can attempt to decrease frequency of medications - Educated patient if she cannot void, to call office or to go to ER - Discussed plan with patient and daughter, both agreeable to plan Indigo Mayfield APRN.DEEJAY documented in this encounter [facility] 02-05-2022 Instructions Indigo Mayfield APRN.CNP - 02/05/2022 8:25 AM EDT Follow up in 1-2 weeks Apply pea sized amount of clobetasol cream all over vaginal opening and labia Apply 1 g of vaginal estrogen cream with finger around vaginal opening with gentle spreading of labia documented in this encounter [facility] [place] 02-05-2022 History of Presen t illness Narrative Female Pelvic Medicine & Reconstructive Surgery Post-Op Visit Clari Stephens is a 72 year old female who presents for a 2 Week post-op check s/p: Procedure(s): Lysis of labial adhesions, cystoscopy Anesthesia: Monitored Anesthesia Care Findings: -Completely fused labia minora with small pinpoint hole at 6:00 with urine leaking out, vaginal opening restored on completion of procedure -Mid vagina stenotic -Normal appearing cervix - A 360 degree cystoscopy was performed without evidence of trauma, sutures or injury to the bladder. There were brisk urine jets coming from both ureteral orifices. The urethra was assessed without any evidence of injury. History since surgery: Patient states she received message to start clobetasol and estrogen cream but did not apply it yet. States she gets confused on where to apply each cream. Is moving to an assisted living apartment in next 1-2 weeks where she hopes she will have help applying the creams. States that she can urinate much better since surgery. Denies concern for a UTI today. States she does not have pain, or vaginal bleeding. Is very happy with her recovery. Post-op complications: no Bleeding: no Pain: no If you had pain related to your prolapse before surgery, has your pain resolved? Yes Abnormal vaginal discharge: no PFDI-20 Do you: Usually experience pressure in the lower abdomen? No (0) Usually experience heaviness or dullness in the pelvic area? No (0) Usually have a bulge or something falling out that you can see or feel in your vaginal area? No (0) Ever have to push on the vagina or around the rectum to have or complete a bowel movement? No (0) Usually experience a feeling of incomplete bladder emptying? No (0) Ever have to push up on a bulge in the vaginal area with your fingers to start or complete urination? No (0) Feel you need to strain too hard to have a bowel movement? No (0) Feel you have not completely emptied your bowels at the end of a bowel movement? No (0) Usually lose stool beyond your control if your stool is well formed? Yes, not at all bothersome (1) Usually lose stool beyond your control if your stool is loose? Yes, not at all bothersome (1) Usually lose gas from the rectum beyond your control? No (0) Usually have pain when you pass your stool? No (0) Experience a strong sense of urgency and have to neil to the bathroom to have a bowel movement? Yes, not at all bothersome (1) Does part of your bowel ever pass through the rectum and bulge outside during or after a bowel movement? No (0) Usually experience frequent urination? No (0) Usually experience urine leakage associated with a feeling of urgency, that is, a strong sensation of needing to go to the bathroom? No (0) Usually experience urine leakage related to coughing, sneezing or laughing? No (0) Usually experience small amounts of urine leakage (that is, drops)? No (0) Usually experience difficulty emptying your bladder? No (0) Usually experience pain or discomfort in the lower abdomen or genital region? No (0) Overall, how satisfied were you with your postoperative pain medication? Satisfied With regard to your expectations before surgery, did you have the amount of pain you expected, more pain, or less pain? Much less pain than I expected Was the preoperative teaching you had about pain expectations helpful? Yes Were the discharge instructions you received about pain medications helpful? Yes Mine Boss offered:Patient declines OBJECTIVE: There were no vitals taken for this visit. General: Well appearing, alert, in no acute distress, well-hydrated, well nourished. Abdomen: Abdomen soft, non-tender Pelvic: Ext. Genitalia: agglutination of labia majora with 0.5 cm opening at top and bottom of labia, able to release only a small amount (about 0.1-0.2 cm worth) of adhesions with gentle spreading near top and bottom. slight erythema noted. Vagina: unable to visualize due to adhesions Cervix: unable to perform speculum exam Urethra: unable to visualize due to adhesions Bimanual: unable to perform Rectovaginal: Deferred ASSESMENT: Clari Stephens is a 72 year old female who is post-op; stable and doing well post-operative course complicated by labial adhesions PLAN: Lengthy discussion with patient and daughter about the importance of applying vaginal estrogen cream and clobetasol to prevent the adhesions from worsening. Educated both daughter and patient on the following regimen: - Apply pea sized amount of clobetasol cream all over vaginal opening and labia while spreading labia every day - Apply 1 g of vaginal estrogen cream around vaginal opening with gentle spreading every night May resume normal activities. Operative findings and pathology report were reviewed today. Follow up in 1-2 weeks or sooner if needed Chart forwarded to Dr. Miller for review Patient expressed understanding. Indigo Mayfield APRN.DEEJAY documented in this encounter [facility] 01-23-2022 Miscellaneous Notes Spoke with Luiza, patient's daughter. I relayed the message for Dr. Miller for patient to start Estrace and Clobetasol cream as directed. Advised Luiza to have Clari use applicator for Estrace cream to help the patency of the vagina. Luiza is not sure patient has an applicator but she will check and let me know. Chung Lion APRN.DEEJAY documented in this encounter [facility] 01-20-2022 Miscellaneous Notes Provider in pre-admission calling stating they still have not been able to get ahold of patient. Please advise if able to move forward with surgery tomorrow as patient has a pace maker and was supposed to be evaluated. Please advise and call pre-admission [phone] ask for Unique. Thank you Preadmission testing employee called. She saw that patient has surgery with Dr. Miller on 01/21/2022. She's tried to reach the patient multiple times, but she hasn't answer, nor has she called back in regards to preadmission testing. Employee just wanted to let Dr. Miller know. Thank you. documented in this encounter [facility] 01-16-2022 Miscellaneous Notes Called and all reviewed with pts daughter. She requested we faxed the admission forms to [facility] at [facility]. This was done. At this time pt still plans on coming in for appts with pcp. Did request they complete the office if this info does change. Form completed. rec'd forms from pts daughter. They are [facility] assisted living initial and annual health assessment. Printed last office note for pcp to review. documented in this encounter [facility] 01-13-2022 History of Presen t illness Narrative Female Pelvic Medicine & Reconstructive Surgery Follow-Up Clari Stephens is a 72 year old female, who presents for a follow-up of lichen planus, agglutination of labia minora, UTI and vaginal atrophy. Pt is a follow up for lichen planus. + JAVI Mayfield CNP 12/25/21: Impression: Clari Stephens is a 71 year old female with Lichen Planus, Agglutination of labia minora, UTI, vaginal atrophy. Plan: 1. Continue clobetasol cream nightly 2. Continue vaginal estrogen cream twice weekly, Rx to compounding pharmacy sent. Educated patient on where to apply cream 3. Complete course of Keflex for UTI 4. Apply Aquaphor as skin barrier for incontinence as needed 5. Follow up with Dr. Miller in 1 month 6. Patient to call office if she feels she cannot empty her bladder or if her symptoms worsen History since last visit: Pt is using clobetasol daily but forget to use estrace. Pt started macobid today for infection. Urinary Incontinence: yes, Does not need a pad Voiding Dysfunction: no Urinary Frequency: yes, Urinary Urgency: yes, sometimes Prolapse Symptoms: no Defecatory Dysfunction: no Fecal Incontinence: no Abnormal Bleeding: no Pain: no Abnormal Vaginal Discharge: no I have confirmed and edited as necessary, the PFSH obtained by others. Maricel Miller MD Mine Boss offered: Patient declines. OBJECTIVE: There were no vitals taken for this visit. General: Well appearing, alert, in no acute distress, well-hydrated, well nourished. Abdomen: Abdomen soft, non-tender Pelvic: Ext. Genitalia: Complete agglutination of labia majora. Gentle spreading of labia releases adhesions Impression: Clari Stephens is a 72 year old (FAVD x 1) female with Lichen Planus and Complete Labial Agglutination. Pt has been using clobetasol cream and occasionally vaginal estrogen cream. Last examined patient on 03/01/2021 and no significant improvement in agglutination. Would recommend labial adhesiolysis in the OR. Discussed risk of procedure including bleeding, infection, pain and non-resolution of symptoms. Pt and daughter agree and would like to proceed Plan: 1. Patient leaning towards surgical management and would like to schedule exam under anesthesia, labial adhesiolysis and possible cystoscopy on ThursdayJanuary 21 at [place] 2. No pre-operative appointments needed and will sign consent on the day of surgery 3. Pt will follow-up with Indigo Mayfield 1-2 weeks postoperatively and then restart clobetasol cream and vaginal estrogen cream 4. Will re-evaluate urinary incontinence and recurrent UTIs after she has undergone labial adhesiolysis I spent 30 minutes in the visit, with more than 50% of the total [id number] time of the visit in counseling / coordination of care. This time included preparing to see the patient, [id number] patient care, completing clinical documentation, obtaining and/or reviewing separately obtained history, performing a medically appropriate examination, counseling and educating the patient/family/caregiver and ordering medications, tests, or procedures. Maricel Miller MD documented in this encounter [facility] 01-07-2022 Miscellaneous Notes Patient notified. Kerline Pedroza RN ordered Patient of AG. Calling c/o UTI symptoms. Has been having dysuria x1 week and urinary frequency started this morning. Can only come in tomorrow between 10-11. Wants lab orders placed since no appointments available in that time frame. Please file. Patient requesting call back to let her know. Kerline Pedroza RN documented in this encounter [facility] 12-25-2021 Instructions Indigo Mayfield APRN.DEEJAY - 12/25/2021 9:52 AM EDT Follow up with Dr. Miller in 1 month. As you spread your labia apart nightly, apply 1 application of clobetasol cream. Twice weekly, apply vaginal estrogen cream before bed. If you cannot empty your bladder or your symptoms do not improve, call the office. documented in this encounter [facility] 12-25-2021 History of Presen t illness Narrative Female Pelvic Medicine & Reconstructive Surgery Follow-Up Clari Stephens is a 71 year old female, who presents for a follow-up of lichen planus and labial agglutination. ===== JAVI on 03/01/[address] Miller: IMPRESSION: Clari Stephens is a 71 year old (FAVD x 1) female with Lichen Planus and Complete Labial Agglutination. Discussed options with patient including continuing clobetasol/estrogen cream and gently spreading the labia apart every night for 5-10 minute or performing surgical excision and labial adhesiolysis in the OR. Pt is able to urinate and does not desire to be sexually active. Discussed plan with patient and daughter. Since patient is able to urinate, we will try conservative management with clobetasol/estrogen for 1 more month while she spreads apart the labial herself nightly. If there is no improvement in symptoms or if she has trouble urinating, then we will schedule labial adhesiolysis. PLAN: 1. Continue nightly clobetasol 0.05% 2. Continue vaginal estrogen cream twice weekly 3. Follow-up in 1 month History since last visit: Patient states she was using the Clobetasol and vaginal estrogen inconsistently until her last [employer] appointment with Cami Farris CNP on 12/05/2021 for an appointment made for UTI symptoms, specifically burning with urination. She is currently being treated with Keflex and has 2 days left of the treatment. She states she missed 3 days of taking it. States her burning has significantly decreased since starting her antibiotics. Also states this is her 2nd UTI in the last 6 months. Since she saw OB 3 weeks ago, she has been using Clobetasol most nights, states she puts it inside labia. She stopped using vaginal estrogen 1 month ago because it was and is concerned about the cost of the medication. Patient states that before she developed her UTI, she did not have vaginal burning or itching. States she feels like she fully empties her bladder, and that her incontinence can cause her skin to be irritated at times. Is here today because she was told she should follow up with UroGyn by the [employer]. Urinary Incontinence: yes, more recently with UTI Voiding Dysfunction: no Urinary Frequency: yes, more at night- voids 3-4x/night Urinary Urgency: yes, sometimes Prolapse Symptoms: no Defecatory Dysfunction: yes, recently constipated- hasn't taken anything Fecal Incontinence: yes, liquid Abnormal Bleeding: no Pain: no Abnormal Vaginal Discharge: no DOOR FITTER HISTORY: Last pap: Date:2011, normal; Last mammogram: Her last mammogram was 2018. She has a previous history of an abnormal mammogram with benign breast biopsy LMP: No LMP recorded. Patient is postmenopausal.; Menopause yes: Menstrual history: Menarche: teens; Deliveries: I have confirmed and edited as necessary, the PFSH obtained by others. Indigo Mayfield APRN.DEEJAY [employer] offered: Patient accepts, visit chaperoned by Magdalena Nava RN. OBJECTIVE: BP 136/82 General: Well appearing, alert, in no acute distress, well-hydrated, well nourished. Abdomen: Abdomen soft, non-tender Pelvic: Ext. Genitalia: complete agglutination of labia minora. Very small pinhole sized opening. Labia is erythematous. Vagina: unable to assess, pinhole vaginal opening Photo taken and uploaded to chart UA results: N/A Bladder scan: N/A Impression: Clari Stephens is a 71 year old female with Lichen Planus, Agglutination of labia minora, UTI, vaginal atrophy. Plan: 1. Continue clobetasol cream nightly 2. Continue vaginal estrogen cream twice weekly, Rx to compounding pharmacy sent. Educated patient on where to apply cream 3. Complete course of Keflex for UTI 4. Apply Aquaphor as skin barrier for incontinence as needed 5. Follow up with Dr. Miller in 1 month 6. Patient to call office if she feels she cannot empty her bladder or if her symptoms worsen I spent a total of 35 minutes on the date of the service which included preparing to see the patient, [id number] patient care, completing clinical documentation, obtaining and/or reviewing separately obtained history, performing a medically appropriate examination, counseling and educating the patient/family/caregiver and ordering medications, tests, or procedures Indigo Mayfield APRN.MAINTENANCE ANALYST documented in this encounter [facility] [place] 12-16-2021 History of Presen t illness Narrative This note was created using NoteWriter. Subjective Clari Stephens is a 71 year old female. She had no concerns. She had not been taking amlodipine for an unspecified time because her bottle fell behind the microwave. She was looking to get into assisted living. Review of Systems Constitutional: Negative. Respiratory: Negative for shortness of breath. Cardiovascular: Negative for chest pain, palpitations and leg swelling. Gastrointestinal: Negative. Neurological: Negative for dizziness and headaches. ACTIVE PROBLEM LIST Hyperlipemia Essential Hypertension Asthma Esophageal Reflux S/P Aortic Valve Replacement Diabetes Mellitus Without Complication (Hcc) Lichen Planus Paroxysmal Atrial Fibrillation (Hcc) Presence of Permanent Cardiac Pacemaker Dizziness Urticaria Current Outpatient Medications Medication Sig amLODIPine (NORVASC) 2.5 mg tablet Take 1 tablet by mouth once daily. metFORMIN (GLUCOPHAGE) 500 mg tablet TABLET BY MOUTH EVERY DAY WITH BREAKFAST pravastatin (PRAVACHOL) 40 mg tablet Take 1 tablet by mouth daily at bedtime. cephALEXin (KEFLEX) 500 mg capsule Take 1 capsule by mouth four times daily for 10 days. estradiol (ESTRACE) 0.01 % (0.1 mg/gram) vaginal cream Use 1 g vaginally two times a week, THEN 1 g two times a week. Apply to affected area daily for 2 weeks then twice weekly.. lisinopril (ZESTRIL, PRINIVIL) 20 mg tablet Take 1 tablet by mouth twice daily. famotidine (PEPCID) 40 mg tablet Take 1 tablet by mouth once daily. aspirin 81 mg chewable tablet Take 1 tablet by mouth once daily. meclizine (ANTIVERT) 25 mg tab Take 1 tablet by mouth every 6 hours as needed (dizziness). nystatin (NYSTOP) powder Apply 1 application to affected area four times daily. blood sugar diagnostic (BLOOD GLUCOSE TEST) test strip Test blood sugar(s) 1 times daily. Dx: Type 2 DM - Controlled E11.9 Insulin: No Lancets lancets Test blood sugar(s) 1 times daily. Dx: Type 2 DM - Controlled E11.9 Insulin: No clobetasol (TEMOVATE) 0.05 % ointment Apply 1 application to affected area daily at bedtime. TO AFFECTED AREA for 4 weeks. Blood Pressure Monitor kit Use to monitor blood pressure as directed. albuterol HFA (PROVENTIL HFA) 90 mcg/actuation inhaler Inhale 2 Puffs as instructed every 6 hours as needed for Wheezing/Shortness of Breath. Cholecalciferol, Vitamin D3, 2,000 unit cap Take 1 capsule by mouth once daily. sotalol (BETAPACE) 80 mg tablet Take 1 tablet by mouth twice daily. fluticasone-vilanterol (BREO ELLIPTA) 200-25 mcg/dose inhaler Inhale 1 Inhalation as instructed once daily. Inhale one puff once daily. () No current facility-administered medications for this visit. Objective BP 114/74 (BP Site: Left Arm, BP Position: Sitting, BP Cuff Size: Large Adult) Pulse 60 Temp 36.3 C (97.3 F) (Temporal Artery) Wt 80.2 kg (176 lb 12.8 oz) BMI 30.11 kg/m Physical Exam Constitutional: General: She is not in acute distress. Appearance: She is not diaphoretic. Cardiovascular: Rate and Rhythm: Normal rate and regular rhythm. Heart sounds: No murmur heard. No gallop. Pulmonary: Effort: Pulmonary effort is normal. Breath sounds: Normal breath sounds. No wheezing or rales. Musculoskeletal: Right lower leg: No edema. Left lower leg: No edema. Neurological: General: No focal deficit present. Mental Status: She is alert. Comments: Using a wheelchair and has a cane. Psychiatric: Mood and Affect: Mood normal. Assessment and Plan 1. Essential hypertension - ICD9: 401.9, ICD10: I10 (primary diagnosis) - good control - Recent BP reviewed. Continue medications. - AMLODIPINE 2.5 MG TABLET 2. Diabetes mellitus without complication (HCC) - ICD9: 250.00, ICD10: E11.9 Controlled. - Continue current medications - METFORMIN 500 MG TABLET - BASIC METABOLIC PNL - HGB A1C 3. Other hyperlipidemia - ICD9: 272.4, ICD10: E78.49 TBD by labs. - PRAVASTATIN 40 MG TABLET - LIPID PANEL, NONFASTING Davon Bradley MD documented in this encounter [facility] [place] 12-12-2021 Miscellaneous Notes Patient notified. She only remembers PCN allergy and not to Keflex. Kerline Pedroza RN Attempted to contact patient on mobile number but no answer and unable to leave a message as voicemail box is full. Also attempted to contact patient on home number but number rings fast busy. Will attempt to contact patient again later. Margoth Perry RN Please notify pt - The urine culture showed bacteria often found in skin, which is not surprising with her anatomy. Keflex prescribed - ask about allergy to PCN - she was prescribed Keflex in 2019 with no allergy noted. Cami Farris APRN.CNP documented in this encounter [facility] [place] 12-05-2021 Miscellaneous Notes Spoke to pharmacist at [facility] and medication instructions clarified. Margoth Perry RN 1 gm twice weekly. Cami Farris APRN.CNP Pharmacy called. Needing clarification on Estradiol cream. This is how it reads: Use 1 g vaginally two times a week, THEN 1 g two times a week. Apply to affected area daily for 2 weeks then twice weekly. documented in this encounter [facility] [place] 12-05-2021 Instructions Cami Farris APRN.CNP - 12/05/2021 2:12 PM EDT Incontinence pads such as Poise. Hypoallergenic, no dyes, no fragrances. Use them only when needed. Wash and dry skin after incontinence of urine and then apply Aquaphor or A&D to protect the skin. documented in this encounter [facility] [place] 12-05-2021 History of Presen t illness Narrative Clari Stephens is a 71 year old female who presents for problem visit Vaginal itching and burning. HPI: Vaginal itching and burning for past year, more burning over the past couple of months. Has lichen planus with agglutination of labial. Using clobetasol every night unless she falls asleep and forgets. Uses estrogen cream twice a week but has not used it for the past 10 days. States has gotten sloppy about using creams and needs to get back to using them regularly. Uses a calendar as a reminder but still forgets. Has taken antibiotics twice in the past few months for UTI. No discharge. States has a poor memory and hopes she is relating the correct information. Evaluated by Dr Miller, uro food production machine operator 01/2021 - Discussed options with patient including continuing clobetasol/estrogen cream and gently spreading the labia apart every night for 5-10 minute or performing surgical excision and labial adhesiolysis in the OR. Pt is able to urinate and does not desire to be sexually active. Discussed plan with patient and daughter. Since patient is able to urinate, we will try conservative management with clobetasol/estrogen for 1 more month while she spreads apart the labial herself nightly. If there is no improvement in symptoms or if she has trouble urinating, then we will schedule labial adhesiolysis. PLAN: 1. Continue nightly clobetasol 0.05% 2. Continue vaginal estrogen cream twice weekly 3. Follow-up in 1 month OB History T1 L1 SAB0 IAB0 Ectopic0 Multiple0 Live Births0 Student Dean History LMP: Postmenopausal Age at Menarche: Age at First : Age at Menopause: Student Dean History Comments: Sexual Activity: Never; No partner data on record Contraception: No contraception data on record PAST MEDICAL HISTORY Diagnosis Date AORTIC VALVE DISORDER 12/03/2005 [place] 12-03-05: ECG showed SB, no LVH-rec Echo to consider bicupsid AV Echo 03-09: LA 42 mm, 61%, mild LVH, mod-severe calcific -orifice 1.1 cm2, 1+ TR, RVSP 31 [place] 02-07: rec repeat Echo in 6 mo (reordered in 01-09 as pt did not do test) Echo 02-08: 65%, LVH, trivial MR, RVSP 24, mod-sev of 1 cm2 ASTHMA UNSPECIFIED 07/12/2007 Amoxil 01-05 and Ketek 08-08 for URI Singulair and Albuterol started in 04-07 Rec OTC antihistamine for eye symptoms as of 01-09 Carpal tunnel syndrome 06/17/2007 Recommended Naprosyn and Flexeril as of 03-09 [facility]: rec stopping in 06-09 Responding well to wrist splints as of 06-09 and wt loss as of 07-09 Heme positive stool 09/2019 HYPERLIPIDEMIA NEC/NOS 06/17/2007 Zocor in 01-05 and Lipitor as of 04-09 LDL 100, HDL 36, TG 186 in 05-08 LDL 84, HDL 36, TG 140 in 11-08 Changed to Pravastatin 40 mg in 10-09 LDL 112, HDL 38, TG 136 in 01-09 HYPERTENSION NOS 06/17/2007 Lisinopril started about 12-05 Creat 0.9 in 05-08, 07-10, 01-09 UA negative for protein and blood in 01-09 Impaired fasting glucose 03/04/2010 Lichen planus 03/09/2014 Vulva PNEUMONIA, ORGANISM NOS 06/08/2008 Lingular infiltrate by CXR, WBC 11 K in 03-10: need to repeat for clearing (pt had pneumonia clinically) CXR 06-10 showed partial resolution of the left lingular infiltrate: scheduled pt as need to consider CT given timeframe CT in 07-10: atelec vs scar vs infiltrate (unlikely given clinical improvement), no JEWEL (notified by phone 08-02-08) S/P aortic valve replacement 03/03/2013 Type II or unspecified type diabetes mellitus without mention of complication, not stated as uncontrolled 04/15/2013 PAST SURGICAL HISTORY Procedure Laterality Date BX BREAST W/DEVICE 1ST LESION STEREOTACTIC GUID Left 12/25/2016 Microcalcifications-benign COLONOSCOPY FLX DX W/COLLJ SPEC WHEN PFRMD 09/07/2019 EXCISION PILONIDAL CYST/SINUS SIMPLE 1950 estimated. PACEMAKER 01/07/2019 RPLCMT PROST AORTIC VALVE OPEN XCP HOMOGRF/STENT 01/25/2013 Aortic valve replacement, Porcine TONSILLECTOMY PRIMARY/SECONDARY <AGE 12 1952 estimated FAMILY HISTORY Problem Relation Age of Onset Diabetes Mother alive age 86 2010 Hypertension Mother Heart Mother pacemaker Cancer Father lymphoma? dec. age 60s Social History Tobacco Use Smoking status: Never Smoker Smokeless tobacco: Never Used Substance Use Topics Alcohol use: No Drug use: No Current Outpatient Medications Medication Sig lisinopril (ZESTRIL, PRINIVIL) 20 mg tablet Take 1 tablet by mouth twice daily. famotidine (PEPCID) 40 mg tablet Take 1 tablet by mouth once daily. aspirin 81 mg chewable tablet Take 1 tablet by mouth once daily. amLODIPine (NORVASC) 2.5 mg tablet Take 1 tablet by mouth once daily. meclizine (ANTIVERT) 25 mg tab Take 1 tablet by mouth every 6 hours as needed (dizziness). metFORMIN (GLUCOPHAGE) 500 mg tablet TABLET BY MOUTH EVERY DAY WITH BREAKFAST pravastatin (PRAVACHOL) 40 mg tablet Take 1 tablet by mouth daily at bedtime. blood sugar diagnostic (BLOOD GLUCOSE TEST) test strip Test blood sugar(s) 1 times daily. Dx: Type 2 DM - Controlled E11.9 Insulin: No Lancets lancets Test blood sugar(s) 1 times daily. Dx: Type 2 DM - Controlled E11.9 Insulin: No estradiol (ESTRACE) 0.01 % (0.1 mg/gram) vaginal cream Apply to affected area daily for 2 weeks then twice weekly. Blood Pressure Monitor kit Use to monitor blood pressure as directed. albuterol HFA (PROVENTIL HFA) 90 mcg/actuation inhaler Inhale 2 Puffs as instructed every 6 hours as needed for Wheezing/Shortness of Breath. Cholecalciferol, Vitamin D3, 2,000 unit cap Take 1 capsule by mouth once daily. sotalol (BETAPACE) 80 mg tablet Take 1 tablet by mouth twice daily. fluticasone-vilanterol (BREO ELLIPTA) 200-25 mcg/dose inhaler Inhale 1 Inhalation as instructed once daily. Inhale one puff once daily. () hydrOXYzine HCl (ATARAX) 25 mg tablet Take 1 tablet by mouth three times daily as needed for itching/rash. (Patient not taking: Reported on 12/05/2021 ) predniSONE (DELTASONE) 10 mg tablet TAKE BY MOUTH 4 TABLETS DAILY FOR 2 DAYS, THEN 3 TABLETS DAILY FOR 2 DAYS, THEN 2 TABLETS DAILY FOR 2 DAYS, THEN 1 TABLET DAILY FOR 2 DAYS. (Patient not taking: Reported on 12/05/2021 ) nystatin (NYSTOP) powder Apply 1 application to affected area four times daily. clobetasol (TEMOVATE) 0.05 % ointment Apply 1 application to affected area daily at bedtime. TO AFFECTED AREA for 4 weeks. No current facility-administered medications for this visit. Allergies As of Date: 12/05/2021 Allergen Noted Reaction PENICILLINS 12/03/2005 SEASONAL ALLERGIES 02/01/2014 Intolerance Fully Assessed 12/05/2021 REVIEW OF SYSTEMS Abdomen: No bloating, early satiety, indigestion, or increased flatulence. No abdominal pain, nausea, vomiting, diarrhea, or constipation. Bladder: frequency and incontinence/dribbling of urine. Is not wearing protection. Allergies and current medication updated:Yes EXAM: BP 140/76 Wt 177 lb (80.3kg) GENERAL: pleasant, female in no apparent distress. Poor historian. CHEST: Normal inspiratory effort PELVIC: Complete agglutination of labia majora. Tiny vaginal opening with scant continuous stream of urine with gentle spreading of labia. Inner l NEURO: alert and oriented x3,exam grossly non-focal ASSESSMENT/PLAN: 1. Dermatitis of vulva - ICD9: 692.9, ICD10: L30.9 (primary diagnosis) - Incontinence pads such as Poise. Hypoallergenic, no dyes, no fragrances. - Use them only when needed. - Wash and dry skin after incontinence of urine and then apply - Aquaphor or A&D to protect the skin. - FLUCONAZOLE 150 MG TABLET 2. 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 Lichen planus - ICD9: 697.0, ICD10: L43.9 See #3 5. Urinary dribbling - ICD9: 788.35, ICD10: N39.43 - UA POC - trace intact blood, trace protein, small leuks - URINE CULTURE Clari's daughter, Luiza, called per myself per request of patient -discussed findings of only very small vaginal opening allowing urine to pass through and continuous dribbling of urine with spreading of labial skin. Discussed risk for infection and current skin breakdown. Advised that patient needs an appointment with Dr. Miller as soon as possible for further management. Continue clobetasol, vaginal estrogen. Informed of written instructions to protect skin from urine dribbling. Voiced understanding and will call for an appointment. Clari made aware that daughter was called prior to leaving the office. Follow-up as needed. Cami Farris APRN.DEEJAY I spent a total of 35 minutes on the date of the service which included preparing to see the patient, [id number] patient care, completing clinical documentation, obtaining and/or reviewing separately obtained history, performing a medically appropriate examination, counseling and educating the patient/family/caregiver, ordering medications, tests, or procedures and communicating results to the patient/family/caregiver. documented in this encounter [facility] [place] 11-04-2021 Miscellaneous Notes Patient's request for medication is as follows Signed Prescriptions Disp Refills lisinopril (ZESTRIL, PRINIVIL) 20 mg tablet 180 tablet 1 Sig: Take 1 tablet by mouth twice daily. Authorizing Provider: DAVON BRADLEY MD Pt's daughter Luiza calls to report that pt's lisinopril dose was increased and pt needs a new rx to go to the pharmacy. Went from lisinopril 10 mg one tab twice daily to 10 mg 2 tabs twice daily. Patient has been identified by name and date of : Yes Pending Prescriptions Disp Refills LISINOPRIL 20 MG TABLET 180 tablet 1 Sig: Take 1 tablet by mouth twice daily. RX INSTRUCTIONS: Patient aware RX will be sent to pharmacy. No need to notify patient. Iliana Romeo LPN documented in this encounter [facility] [place] 11-02-2021 Miscellaneous Notes Reason For Call: Urinary problem. Outcome: SEE HCP WITHIN 4 HOURS (OR PCP TRIAGE): Spoke with the provider on-call Dr. Bradley who prescribed the following medication and this nurse E-Prescribed it to the requested [facility]: Allergies reviewed: Yes ALLERGIES Penicillins Seasonal Allergies Intolerance Comment:Sneezing and running nose (sinus issues) The following medications were verbally ordered by and read back to Dr. Bradley on 11/02/2021 at 4:42 PM by Jonathan Malcolm RN. Signed Prescriptions: Disp Refills nitrofurantoin monohydrate and 6 capsule 0 macrocrystal (MACROBID) 100 mg capsule Sig: Take 1 capsule by mouth twice daily with meals for 3 days. EMERITA: No Authorizing Provider: DAVON BRADLEY Patient/Family notified: Yes Jonathan Malcolm RN Reason for Disposition [1] Discomfort (pain, burning or stinging) when passing urine AND [2] female Diabetes mellitus or weak immune system (e.g., HIV positive, cancer chemo, splenectomy, organ transplant, chronic steroids) Answer Assessment - Initial Assessment Questions 1. SEVERITY: 2/10; more annoying than anything 2. FREQUENCY: 4-5 times today 3. PATTERN: Present every time she urinates 4. ONSET: Couple of days to a week ago 5. FEVER: No 6. PAST UTI: Yes, last time was 2 months ago, she was put on nitrofurantoin monohydrate and macrocrystal (MACROBID) 7. CAUSE: Thinks it's caused by a UTI, feels similar to last month 8. OTHER SYMPTOMS: Some urinary incontinence that she's for over a year, she thinks her providers are aware Protocols used: URINARY [id number], URINATION PAIN - [id number] documented in this encounter [facility] [place] 10-28-2021 History of Presen t illness Narrative This note was created using NoteWriter. Subjective Clari Stephens is a 71 year old female. She continued with itchy hives ongoing for more than one month. She reverted to previously used soap. Prednisone helped temporarily. She had no other symptoms. Review of Systems Constitutional: Negative for diaphoresis and fever. HENT: Negative for sore throat and trouble swallowing. Respiratory: Negative for cough, shortness of breath and wheezing. Cardiovascular: Negative. Gastrointestinal: Negative for abdominal pain, diarrhea, nausea and vomiting. Musculoskeletal: Negative for arthralgias. ACTIVE PROBLEM LIST Hyperlipemia Essential Hypertension Asthma Esophageal Reflux S/P Aortic Valve Replacement Diabetes Mellitus Without Complication (Hcc) Lichen Planus Paroxysmal Atrial Fibrillation (Hcc) Presence of Permanent Cardiac Pacemaker Dizziness Urticaria Current Outpatient Medications Medication Sig loratadine (CLARITIN) 10 mg tablet Take 1 tablet by mouth once daily. predniSONE (DELTASONE) 10 mg tablet TAKE BY MOUTH 4 TABLETS DAILY FOR 2 DAYS, THEN 3 TABLETS DAILY FOR 2 DAYS, THEN 2 TABLETS DAILY FOR 2 DAYS, THEN 1 TABLET DAILY FOR 2 DAYS. aspirin 81 mg chewable tablet Take 1 tablet by mouth once daily. amLODIPine (NORVASC) 2.5 mg tablet Take 1 tablet by mouth once daily. lisinopril (ZESTRIL, PRINIVIL) 10 mg tablet Take 2 tablets by mouth twice daily. meclizine (ANTIVERT) 25 mg tab Take 1 tablet by mouth every 6 hours as needed (dizziness). metFORMIN (GLUCOPHAGE) 500 mg tablet TABLET BY MOUTH EVERY DAY WITH BREAKFAST pravastatin (PRAVACHOL) 40 mg tablet Take 1 tablet by mouth daily at bedtime. nystatin (NYSTOP) powder Apply 1 application to affected area four times daily. blood sugar diagnostic (BLOOD GLUCOSE TEST) test strip Test blood sugar(s) 1 times daily. Dx: Type 2 DM - Controlled E11.9 Insulin: No Lancets lancets Test blood sugar(s) 1 times daily. Dx: Type 2 DM - Controlled E11.9 Insulin: No estradiol (ESTRACE) 0.01 % (0.1 mg/gram) vaginal cream Apply to affected area daily for 2 weeks then twice weekly. clobetasol (TEMOVATE) 0.05 % ointment Apply 1 application to affected area daily at bedtime. TO AFFECTED AREA for 4 weeks. Blood Pressure Monitor kit Use to monitor blood pressure as directed. albuterol HFA (PROVENTIL HFA) 90 mcg/actuation inhaler Inhale 2 Puffs as instructed every 6 hours as needed for Wheezing/Shortness of Breath. Cholecalciferol, Vitamin D3, 2,000 unit cap Take 1 capsule by mouth once daily. sotalol (BETAPACE) 80 mg tablet Take 1 tablet by mouth twice daily. fluticasone-vilanterol (BREO ELLIPTA) 200-25 mcg/dose inhaler Inhale 1 Inhalation as instructed once daily. Inhale one puff once daily. () predniSONE (DELTASONE) 10 mg tablet Take 4 tabs daily for 3 days, then 2 tabs daily for 3 days, then 1 tab daily for 3 days with food. hydrOXYzine HCl (ATARAX) 25 mg tablet Take 1 tablet by mouth three times daily as needed for itching/rash. famotidine (PEPCID) 40 mg tablet Take 1 tablet by mouth once daily. No current facility-administered medications for this visit. Objective BP (P) 132/74 (BP Site: Left Arm, BP Position: Sitting, BP Cuff Size: Large Adult) Pulse (P) 84 Temp (P) 36.8 C (98.2 F) (Temporal) Resp (P) 16 Wt (P) 79.4 kg (175 lb) BMI (P) 29.81 kg/m Physical Exam Constitutional: General: She is not in acute distress. Appearance: She is not ill-appearing. HENT: Nose: Nose normal. Mouth/Throat: Pharynx: Oropharynx is clear. Cardiovascular: Rate and Rhythm: Normal rate and regular rhythm. Heart sounds: Murmur heard. Pulmonary: Effort: No respiratory distress. Breath sounds: No wheezing. Musculoskeletal: Right lower leg: No edema. Left lower leg: No edema. Skin: Findings: Rash present. Comments: Urticaria generalized. Neurological: Mental Status: She is alert. Assessment and Plan 1. Urticaria - ICD9: 708.9, ICD10: L50.9 (primary diagnosis) - Likely viral or allergic etiology discussed with patient - Follow up if symptoms persist or worsen. - PREDNISONE 10 MG TABLET - LORATADINE 10 MG TABLET - HYDROXYZINE HCL 25 MG TABLET - FAMOTIDINE 40 MG TABLET Discussed medication dosage, usage, goals of therapy, and side effects. 2. Gastroesophageal reflux disease without esophagitis - ICD9: 530.81, ICD10: K21.9 - She stopped pantoprazole some time ago. - FAMOTIDINE 40 MG TABLET 3. Diabetes mellitus without complication (HCC) - ICD9: 250.00, ICD10: E11.9 Monitor with prednisone. - Continue current medications Davon Bradley MD documented in this encounter [facility] [place] 10-25-2021 Instructions Davon Bradley MD - 10/25/2021 5:05 PM EDT SEE MEDICATION LIST FOR CHANGES. documented in this encounter [facility] [place] 10-23-2021 Miscellaneous Notes Spoke with patient. Given message from provider's office. Patient verbalizes understanding. Appointment scheduled. Miya Foley RN She needs in office follow up. She was seen in urgent care and called for a refill of prednisone, which I did. I need to see these rashes. Patient calling back, she checked her calendar and finished the prednisone one week ago today. She uses [facility] for her pharmacy if needed. Patient calling said she finished prednisone rx 2 weeks ago, and she has hives all over arms and legs, back. Patient said she stopped using her dryer sheet and soap. She has been using otc anti itch cream 1% hydrocortisone cream sparingly. Patient asking what did you want her to do, since hives have never left? Please advise documented in this encounter [facility] [place] documented as of this encounter (statuses as of 10/23/2021) [facility] [place]02-26[facility]2013 History of Past illness Narrative* Problem Noted Date Resolved Date Labia minora agglutination 09/28/201206/07 Impaired fasting glucose 03/04/2010 014 Routine general medical exam ination at a health care facility 07/12/2007 01/01/2012 Overview: Prednisone for hives in 05-08 HCT 41% in 05-08 TSH 4.38 in 05-08 C spine NL for neck pain on 03-24-07 To pursue Pap through [facility] outside [facility] for cost in 01-08: not so as of 04-10 PPD negative on 04-08-08: job related testing Obesity, Unspecified 06/17/2007 06/07/2014 Overview: Pt to come to the office once a week for a weight check as of 07-09 197 in 08-10, 187 in 02-07: left message with at home on 03-06-08, 185 in 05-10 Discussed limiting meat based proteins as of 01-08 Weight was 179 pounds in 04-11 Aortic valve disorders 12/03/2005 3 Overview: Oneal 12-03-05: ECG showed SB, no LVH-rec Echo to consider bicupsid AV Echo 03-09: LA 42 mm, 61%, mild LVH, mod-severe calcific -orifice 1.1 cm2, 1+ TR, RVSP 31 [place] 02-07: rec repeat Echo in 6 mo (reordered in 01-09 as pt did not do test) Echo 02-08: 65%, LVH, trivial MR, RVSP 24, mod-sev of 1 cm2 documented as of this encounter (statuses as of 10/28/2021) [facility] [place]02-[facility]2013 History of Past illness Narrative* Problem Noted Date Resolved Date Labia minora agglutination 09/28/201206/07 Impaired fasting glucose 03/04/2010 014 Routine general medical exam ination at a health care facility 07/12/2007 01/01/2012 Overview: Prednisone for hives in 05-08 HCT 41% in 05-08 TSH 4.38 in 05-08 C spine NL for neck pain on 03-24-07 To pursue Pap through [facility] for cost in 01-08: not so as of 04-10 PPD negative on 04-08-08: job related testing Obesity, Unspecified 06/17/2007 06/07/2014 Overview: Pt to come to the office once a week for a weight check as of 07-09 197 in 08-10, 187 in 02-07: left message with at home on 03-06-08, 185 in 05-10 Discussed limiting meat based proteins as of 01-08 Weight was 179 pounds in 04-11 Aortic valve disorders 12/03/2005 3 Overview: Oneal 12-03-05: ECG showed SB, no LVH-rec Echo to consider bicupsid AV Echo 03-09: LA 42 mm, 61%, mild LVH, mod-severe calcific -orifice 1.1 cm2, 1+ TR, RVSP 31 Go 02-07: rec repeat Echo in 6 mo (reordered in 01-09 as pt did not do test) Echo 02-08: 65%, LVH, trivial MR, RVSP 24, mod-sev of 1 cm2 documented as of this encounter (statuses as of 11/02/2021) [facility] [place]02[facility]2013 History of Past illness Narrative* Problem Noted Date Resolved Date Labia minora agglutination 09/28/201206/07 Impaired fasting glucose 03/04/2010 014 Routine general medical exam ination at a health care facility 07/12/2007 01/01/2012 Overview: Prednisone for hives in 05-08 HCT 41% in 05-08 TSH 4.38 in 05-08 C spine NL for neck pain on 03-24-07 To pursue Pap through [facility] for cost in 01-08: not so as of 04-10 PPD negative on 04-08-08: job related testing Obesity, Unspecified 06/17/2007 06/07/2014 Overview: Pt to come to the office once a week for a weight check as of 07-09 197 in 08-10, 187 in 02-07: left message with at home on 03-06-08, 185 in 05-10 Discussed limiting meat based proteins as of 01-08 Weight was 179 pounds in 04-11 Aortic valve disorders 12/03/2005 3 Overview: Oneal 12-03-05: ECG showed SB, no LVH-rec Echo to consider bicupsid AV Echo 03-09: LA 42 mm, 61%, mild LVH, mod-severe calcific -orifice 1.1 cm2, 1+ TR, RVSP 31 [place] 02-07: rec repeat Echo in 6 mo (reordered in 01-09 as pt did not do test) Echo 02-08: 65%, LVH, trivial MR, RVSP 24, mod-sev of 1 cm2 documented as of this encounter (statuses as of 11/04/2021) [facility] [place]02-[facility]2013 History of Past illness Narrative* Problem Noted Date Resolved Date Labia minora agglutination 09/28/201206/07 Impaired fasting glucose 03/04/2010 014 Routine general medical exam ination at a health care facility 07/12/2007 01/01/2012 Overview: Prednisone for hives in 05-08 HCT 41% in 05-08 TSH 4.38 in 05-08 C spine NL for neck pain on 03-24-07 To pursue Pap through [facility] for cost in 01-08: not so as of 04-10 PPD negative on 04-08-08: job related testing Obesity, Unspecified 06/17/2007 06/07/2014 Overview: Pt to come to the office once a week for a weight check as of 07-09 197 in 08-10, 187 in 02-07: left message with at home on 03-06-08, 185 in 05-10 Discussed limiting meat based proteins as of 01-08 Weight was 179 pounds in 04-11 Aortic valve disorders 12/03/2005 3 Overview: Oneal 12-03-05: ECG showed SB, no LVH-rec Echo to consider bicupsid AV Echo 03-09: LA 42 mm, 61%, mild LVH, mod-severe calcific -orifice 1.1 cm2, 1+ TR, RVSP 31 [place] 02-07: rec repeat Echo in 6 mo (reordered in 01-09 as pt did not do test) Echo 02-08: 65%, LVH, trivial MR, RVSP 24, mod-sev of 1 cm2 documented as of this encounter (statuses as of 12/05/2021) [facility] [place]02[facility]2013 History of Past illness Narrative* Problem Noted Date Resolved Date Labia minora agglutination 09/28/201206/07 Impaired fasting glucose 03/04/2010 014 Routine general medical exam ination at a health care facility 07/12/2007 01/01/2012 Overview: Prednisone for hives in 05-08 HCT 41% in 05-08 TSH 4.38 in 05-08 C spine NL for neck pain on 03-24-07 To pursue Pap through [facility] for cost in 01-08: not so as of 04-10 PPD negative on 04-08-08: job related testing Obesity, Unspecified 06/17/2007 06/07/2014 Overview: Pt to come to the office once a week for a weight check as of 07-09 197 in 08-10, 187 in 02-07: left message with at home on 03-06-08, 185 in 05-10 Discussed limiting meat based proteins as of 01-08 Weight was 179 pounds in 04-11 Aortic valve disorders 12/03/2005 3 Overview: Oneal 12-03-05: ECG showed SB, no LVH-rec Echo to consider bicupsid AV Echo 03-09: LA 42 mm, 61%, mild LVH, mod-severe calcific -orifice 1.1 cm2, 1+ TR, RVSP 31 [place] 02-07: rec repeat Echo in 6 mo (reordered in 01-09 as pt did not do test) Echo 02-08: 65%, LVH, trivial MR, RVSP 24, mod-sev of 1 cm2 documented as of this encounter (statuses as of 12/05/2021) [facility] [place]02[facility]2013 History of Past illness Narrative* Problem Noted Date Resolved Date Labia minora agglutination 09/28/201206/07 Impaired fasting glucose 03/04/2010 014 Routine general medical exam ination at a health care facility 07/12/2007 01/01/2012 Overview: Prednisone for hives in 05-08 HCT 41% in 05-08 TSH 4.38 in 05-08 C spine NL for neck pain on 03-24-07 To pursue Pap through [facility] for cost in 01-08: not so as of 04-10 PPD negative on 04-08-08: job related testing Obesity, Unspecified 06/17/2007 06/07/2014 Overview: Pt to come to the office once a week for a weight check as of 07-09 197 in 08-10, 187 in 02-07: left message with at home on 03-06-08, 185 in 05-10 Discussed limiting meat based proteins as of 01-08 Weight was 179 pounds in 04-11 Aortic valve disorders 12/03/2005 3 Overview: Oneal 12-03-05: ECG showed SB, no LVH-rec Echo to consider bicupsid AV Echo 03-09: LA 42 mm, 61%, mild LVH, mod-severe calcific -orifice 1.1 cm2, 1+ TR, RVSP 31 [place] 02-07: rec repeat Echo in 6 mo (reordered in 01-09 as pt did not do test) Echo 02-08: 65%, LVH, trivial MR, RVSP 24, mod-sev of 1 cm2 documented as of this encounter (statuses as of 12/12/2021) [facility] [place]02[facility]2013 History of Past illness Narrative* Problem Noted Date Resolved Date Labia minora agglutination 09/28/201206/07 Impaired fasting glucose 03/04/2010 014 Routine general medical exam ination at a health care facility 07/12/2007 01/01/2012 Overview: Prednisone for hives in 05-08 HCT 41% in 05-08 TSH 4.38 in 05-08 C spine NL for neck pain on 03-24-07 To pursue Pap through [facility] for cost in 01-08: not so as of 04-10 PPD negative on 04-08-08: job related testing Obesity, Unspecified 06/17/2007 06/07/2014 Overview: Pt to come to the office once a week for a weight check as of 07-09 197 in 08-10, 187 in 02-07: left message with at home on 03-06-08, 185 in 05-10 Discussed limiting meat based proteins as of 01-08 Weight was 179 pounds in 04-11 Aortic valve disorders 12/03/2005 3 Overview: Oneal 12-03-05: ECG showed SB, no LVH-rec Echo to consider bicupsid AV Echo 03-09: LA 42 mm, 61%, mild LVH, mod-severe calcific -orifice 1.1 cm2, 1+ TR, RVSP 31 [place] 02-07: rec repeat Echo in 6 mo (reordered in 01-09 as pt did not do test) Echo 02-08: 65%, LVH, trivial MR, RVSP 24, mod-sev of 1 cm2 documented as of this encounter (statuses as of 12/16/2021) [facility] [place]02[facility]2013 History of Past illness Narrative* Problem Noted Date Resolved Date Labia minora agglutination 09/28/201206/07 Impaired fasting glucose 03/04/2010 014 Routine general medical exam ination at a health care facility 07/12/2007 01/01/2012 Overview: Prednisone for hives in 05-08 HCT 41% in 05-08 TSH 4.38 in 05-08 C spine NL for neck pain on 03-24-07 To pursue Pap through [facility] for cost in 01-08: not so as of 04-10 PPD negative on 04-08-08: job related testing Obesity, Unspecified 06/17/2007 06/07/2014 Overview: Pt to come to the office once a week for a weight check as of 07-09 197 in 08-10, 187 in 02-07: left message with at home on 03-06-08, 185 in 05-10 Discussed limiting meat based proteins as of 01-08 Weight was 179 pounds in 04-11 Aortic valve disorders 12/03/2005 3 Overview: Oneal 12-03-05: ECG showed SB, no LVH-rec Echo to consider bicupsid AV Echo 03-09: LA 42 mm, 61%, mild LVH, mod-severe calcific -orifice 1.1 cm2, 1+ TR, RVSP 31 [place] 02-07: rec repeat Echo in 6 mo (reordered in 01-09 as pt did not do test) Echo 02-08: 65%, LVH, trivial MR, RVSP 24, mod-sev of 1 cm2 documented as of this encounter (statuses as of 12/25/2021) [facility] [place]02[facility]2013 History of Past illness Narrative* Problem Noted Date Resolved Date Labia minora agglutination 09/28/201206/07 Impaired fasting glucose 03/04/2010 014 Routine general medical exam ination at a health care facility 07/12/2007 01/01/2012 Overview: Prednisone for hives in 05-08 HCT 41% in 05-08 TSH 4.38 in 05-08 C spine NL for neck pain on 03-24-07 To pursue Pap through [facility] for cost in 01-08: not so as of 04-10 PPD negative on 04-08-08: job related testing Obesity, Unspecified 06/17/2007 06/07/2014 Overview: Pt to come to the office once a week for a weight check as of 07-09 197 in 08-10, 187 in 02-07: left message with at home on 03-06-08, 185 in 05-10 Discussed limiting meat based proteins as of 01-08 Weight was 179 pounds in 04-11 Aortic valve disorders 12/03/2005 3 Overview: Oneal 12-03-05: ECG showed SB, no LVH-rec Echo to consider bicupsid AV Echo 03-09: LA 42 mm, 61%, mild LVH, mod-severe calcific -orifice 1.1 cm2, 1+ TR, RVSP 31 [place] 02-07: rec repeat Echo in 6 mo (reordered in 01-09 as pt did not do test) Echo 02-08: 65%, LVH, trivial MR, RVSP 24, mod-sev of 1 cm2 documented as of this encounter (statuses as of 01/07/2022) [facility] [place]02[facility]2013 History of Past illness Narrative* Problem Noted Date Resolved Date Labia minora agglutination 09/28/201206/07 Impaired fasting glucose 03/04/2010 014 Routine general medical exam ination at a health care facility 07/12/2007 01/01/2012 Overview: Prednisone for hives in 05-08 HCT 41% in 05-08 TSH 4.38 in 05-08 C spine NL for neck pain on 03-24-07 To pursue Pap through [facility] for cost in 01-08: not so as of 04-10 PPD negative on 04-08-08: job related testing Obesity, Unspecified 06/17/2007 06/07/2014 Overview: Pt to come to the office once a week for a weight check as of 07-09 197 in 08-10, 187 in 02-07: left message with at home on 03-06-08, 185 in 05-10 Discussed limiting meat based proteins as of 01-08 Weight was 179 pounds in 04-11 Aortic valve disorders 12/03/2005 3 Overview: Oneal 12-03-05: ECG showed SB, no LVH-rec Echo to consider bicupsid AV Echo 03-09: LA 42 mm, 61%, mild LVH, mod-severe calcific -orifice 1.1 cm2, 1+ TR, RVSP 31 [place] 02-07: rec repeat Echo in 6 mo (reordered in 01-09 as pt did not do test) Echo 02-08: 65%, LVH, trivial MR, RVSP 24, mod-sev of 1 cm2 documented as of this encounter (statuses as of 01/13/2022) [facility] [place]02[facility]2013 History of Past illness Narrative* Problem Noted Date Resolved Date Labia minora agglutination 09/28/201206/07 Impaired fasting glucose 03/04/2010 014 Routine general medical exam ination at a health care facility 07/12/2007 01/01/2012 Overview: Prednisone for hives in 05-08 HCT 41% in 05-08 TSH 4.38 in 05-08 C spine NL for neck pain on 03-24-07 To pursue Pap through [facility] for cost in 01-08: not so as of 04-10 PPD negative on 04-08-08: job related testing Obesity, Unspecified 06/17/2007 06/07/2014 Overview: Pt to come to the office once a week for a weight check as of 07-09 197 in 08-10, 187 in 02-07: left message with at home on 03-06-08, 185 in 05-10 Discussed limiting meat based proteins as of 01-08 Weight was 179 pounds in 04-11 Aortic valve disorders 12/03/2005 3 Overview: Oneal 12-03-05: ECG showed SB, no LVH-rec Echo to consider bicupsid AV Echo 03-09: LA 42 mm, 61%, mild LVH, mod-severe calcific -orifice 1.1 cm2, 1+ TR, RVSP 31 [place] 02-07: rec repeat Echo in 6 mo (reordered in 01-09 as pt did not do test) Echo 02-08: 65%, LVH, trivial MR, RVSP 24, mod-sev of 1 cm2 documented as of this encounter (statuses as of 01/16/2022) [facility] [place]02[facility]2013 History of Past illness Narrative* Problem Noted Date Resolved Date Labia minora agglutination 09/28/201206/07 Impaired fasting glucose 03/04/2010 014 Routine general medical exam ination at a health care facility 07/12/2007 01/01/2012 Overview: Prednisone for hives in 05-08 HCT 41% in 05-08 TSH 4.38 in 05-08 C spine NL for neck pain on 03-24-07 To pursue Pap through [facility] for cost in 01-08: not so as of 04-10 PPD negative on 04-08-08: job related testing Obesity, Unspecified 06/17/2007 06/07/2014 Overview: Pt to come to the office once a week for a weight check as of 07-09 197 in 08-10, 187 in 02-07: left message with at home on 03-06-08, 185 in 05-10 Discussed limiting meat based proteins as of 01-08 Weight was 179 pounds in 04-11 Aortic valve disorders 12/03/2005 3 Overview: Oneal 12-03-05: ECG showed SB, no LVH-rec Echo to consider bicupsid AV Echo 03-09: LA 42 mm, 61%, mild LVH, mod-severe calcific -orifice 1.1 cm2, 1+ TR, RVSP 31 [place] 02-07: rec repeat Echo in 6 mo (reordered in 01-09 as pt did not do test) Echo 02-08: 65%, LVH, trivial MR, RVSP 24, mod-sev of 1 cm2 documented as of this encounter (statuses as of 01/20/2022) [facility] [place]02[facility] History of Past illness Narrative* Problem Noted Date Resolved Date Labia minora agglutination 09/28/201206/07 Impaired fasting glucose 03/04/2010 014 Routine general medical exam ination at a health care facility 07/12/2007 01/01/2012 Overview: Prednisone for hives in 05-08 HCT 41% in 05-08 TSH 4.38 in 05-08 C spine NL for neck pain on 03-24-07 To pursue Pap through [facility] for cost in 01-08: not so as of 04-10 PPD negative on 04-08-08: job related testing Obesity, Unspecified 06/17/2007 06/07/2014 Overview: Pt to come to the office once a week for a weight check as of 07-09 197 in 08-10, 187 in 02-07: left message with at home on 03-06-08, 185 in 05-10 Discussed limiting meat based proteins as of 01-08 Weight was 179 pounds in 04-11 Aortic valve disorders 12/03/2005 3 Overview: Oneal 12-03-05: ECG showed SB, no LVH-rec Echo to consider bicupsid AV Echo 03-09: LA 42 mm, 61%, mild LVH, mod-severe calcific -orifice 1.1 cm2, 1+ TR, RVSP 31 [place] 02-07: rec repeat Echo in 6 mo (reordered in 01-09 as pt did not do test) Echo 02-08: 65%, LVH, trivial MR, RVSP 24, mod-sev of 1 cm2 documented as of this encounter (statuses as of 01/23/2022) [facility] [place]02[facility]2013 History of Past illness Narrative* Problem Noted Date Resolved Date Labia minora agglutination 09/28/201206/07 Impaired fasting glucose 03/04/2010 014 Routine general medical exam ination at a health care facility 07/12/2007 01/01/2012 Overview: Prednisone for hives in 05-08 HCT 41% in 05-08 TSH 4.38 in 05-08 C spine NL for neck pain on 03-24-07 To pursue Pap through [facility] for cost in 01-08: not so as of 04-10 PPD negative on 04-08-08: job related testing Obesity, Unspecified 06/17/2007 06/07/2014 Overview: Pt to come to the office once a week for a weight check as of 07-09 197 in 08-10, 187 in 02-07: left message with at home on 03-06-08, 185 in 05-10 Discussed limiting meat based proteins as of 01-08 Weight was 179 pounds in 04-11 Aortic valve disorders 12/03/2005 3 Overview: Oneal 12-03-05: ECG showed SB, no LVH-rec Echo to consider bicupsid AV Echo 03-09: LA 42 mm, 61%, mild LVH, mod-severe calcific -orifice 1.1 cm2, 1+ TR, RVSP 31 [place] 02-07: rec repeat Echo in 6 mo (reordered in 01-09 as pt did not do test) Echo 02-08: 65%, LVH, trivial MR, RVSP 24, mod-sev of 1 cm2 documented as of this encounter (statuses as of 02/05/2022) [facility] [place] History of Past illness Narrative* Problem Noted Date Resolved Date Labia minora agglutination 09/28/201206/07 Impaired fasting glucose 03/04/2010 014 Routine general medical exam ination at a health care facility 07/12/2007 01/01/2012 Overview: Prednisone for hives in 05-08 HCT 41% in 05-08 TSH 4.38 in 05-08 C spine NL for neck pain on 03-24-07 To pursue Pap through [facility] for cost in 01-08: not so as of 04-10 PPD negative on 04-08-08: job related testing Obesity, Unspecified 06/17/2007 06/07/2014 Overview: Pt to come to the office once a week for a weight check as of 07-09 197 in 08-10, 187 in 02-07: left message with at home on 03-06-08, 185 in 05-10 Discussed limiting meat based proteins as of 01-08 Weight was 179 pounds in 04-11 Aortic valve disorders 12/03/2005 3 Overview: Oneal 12-03-05: ECG showed SB, no LVH-rec Echo to consider bicupsid AV Echo 03-09: LA 42 mm, 61%, mild LVH, mod-severe calcific -orifice 1.1 cm2, 1+ TR, RVSP 31 [place] 02-07: rec repeat Echo in 6 mo (reordered in 01-09 as pt did not do test) Echo 02-08: 65%, LVH, trivial MR, RVSP 24, mod-sev of 1 cm2 documented as of this encounter (statuses as of 02/19/2022) [facility] [place] History of Past illness Narrative* Problem Noted Date Resolved Date Labia minora agglutination 09/28/201206/07 Impaired fasting glucose 03/04/2010 014 Routine general medical exam ination at a health care facility 07/12/2007 01/01/2012 Overview: Prednisone for hives in 05-08 HCT 41% in 05-08 TSH 4.38 in 05-08 C spine NL for neck pain on 03-24-07 To pursue Pap through [facility] for cost in 01-08: not so as of 04-10 PPD negative on 04-08-08: job related testing Obesity, Unspecified 06/17/2007 06/07/2014 Overview: Pt to come to the office once a week for a weight check as of 07-09 197 in 08-10, 187 in 02-07: left message with at home on 03-06-08, 185 in 05-10 Discussed limiting meat based proteins as of 01-08 Weight was 179 pounds in 04-11 Aortic valve disorders 12/03/2005 3 Overview: Oneal 12-03-05: ECG showed SB, no LVH-rec Echo to consider bicupsid AV Echo 03-09: LA 42 mm, 61%, mild LVH, mod-severe calcific -orifice 1.1 cm2, 1+ TR, RVSP 31 [place] 02-07: rec repeat Echo in 6 mo (reordered in 01-09 as pt did not do test) Echo 02-08: 65%, LVH, trivial MR, RVSP 24, mod-sev of 1 cm2 documented as of this encounter (statuses as of 05/19/2022) [facility] [place] History of Past illness Narrative* Problem Noted Date Resolved Date Labia minora agglutination 09/28/201206/07 Impaired fasting glucose 03/04/2010 014 Routine general medical exam ination at a health care facility 07/12/2007 01/01/2012 Overview: Prednisone for hives in 05-08 HCT 41% in 05-08 TSH 4.38 in 05-08 C spine NL for neck pain on 03-24-07 To pursue Pap through [facility] for cost in 01-08: not so as of 04-10 PPD negative on 04-08-08: job related testing Obesity, Unspecified 06/17/2007 06/07/2014 Overview: Pt to come to the office once a week for a weight check as of 07-09 197 in 08-10, 187 in 02-07: left message with at home on 03-06-08, 185 in 05-10 Discussed limiting meat based proteins as of 01-08 Weight was 179 pounds in 04-11 Aortic valve disorders 12/03/2005 3 Overview: Oneal 12-03-05: ECG showed SB, no LVH-rec Echo to consider bicupsid AV Echo 03-09: LA 42 mm, 61%, mild LVH, mod-severe calcific -orifice 1.1 cm2, 1+ TR, RVSP 31 [place] 02-07: rec repeat Echo in 6 mo (reordered in 01-09 as pt did not do test) Echo 02-08: 65%, LVH, trivial MR, RVSP 24, mod-sev of 1 cm2 documented as of this encounter (statuses as of 11/14/2022) [facility] [place] History of Past illness Narrative* Problem Noted Date Resolved Date Labia minora agglutination 09/28/201206/07 Impaired fasting glucose 03/04/2010 014 Routine general medical exam ination at a health care facility 07/12/2007 01/01/2012 Overview: Prednisone for hives in 05-08 HCT 41% in 05-08 TSH 4.38 in 05-08 C spine NL for neck pain on 03-24-07 To pursue Pap through [facility] for cost in 01-08: not so as of 04-10 PPD negative on 04-08-08: job related testing Obesity, Unspecified 06/17/2007 06/07/2014 Overview: Pt to come to the office once a week for a weight check as of 07-09 197 in 08-10, 187 in 02-07: left message with at home on 03-06-08, 185 in 05-10 Discussed limiting meat based proteins as of 01-08 Weight was 179 pounds in 04-11 Aortic valve disorders 12/03/2005 3 Overview: Oneal 12-03-05: ECG showed SB, no LVH-rec Echo to consider bicupsid AV Echo 03-09: LA 42 mm, 61%, mild LVH, mod-severe calcific -orifice 1.1 cm2, 1+ TR, RVSP 31 [place] 02-07: rec repeat Echo in 6 mo (reordered in 01-09 as pt did not do test) Echo 02-08: 65%, LVH, trivial MR, RVSP 24, mod-sev of 1 cm2 documented as of this encounter (statuses as of 01/16/2023) [facility] [place]2013 History of Past illness Narrative* Problem Noted Date Diagnosed Date Resolved Date Labia minora agglutination 09/28/2012 1 08/07/2013 Impaired fasting glucose 03/04/2010 Routine general medical exam ination at a health care facility 07/12/2007 01/01/2012 Overview: Prednisone for hives in 05-08 HCT 41% in 05-08 TSH 4.38 in 05-08 C spine NL for neck pain on 03-24-07 To pursue Pap through [facility] for cost in 01-08: not so as of 04-10 PPD negative on 04-08-08: job related testing Obesity, Unspecified 06/17/2007 014 Overview: Pt to come to the office once a week for a weight check as of 07-09 197 in 08-10, 187 in 02-07: left message with at home on 03-06-08, 185 in 05-10 Discussed limiting meat based proteins as of 01-08 Weight was 179 pounds in 04-11 Aortic valve disorders 12/03/200504/19 Overview: [place] 12-03-05: ECG showed SB, no LVH-rec Echo to consider bicupsid AV Echo 03-09: LA 42 mm, 61%, mild LVH, mod-severe calcific -orifice 1.1 cm2, 1+ TR, RVSP 31 Go 02-07: rec repeat Echo in 6 mo (reordered in 01-09 as pt did not do test) Echo 02-08: 65%, LVH, trivial MR, RVSP 24, mod-sev of 1 cm2 documented as of this encounter (statuses as of 05/12/2023) [facility] Diagnosis Urticaria- Primary Urticaria, unspecified Gastroesophageal reflux disease without esophagitis Esophageal reflux Diabetes mellitus without complication (HCC) Type II or unspecified type diabetes mellitus without mention of complication, not stated as uncontrolled documented in this encounter [facility] Diagnosis Dermatitis of vulva- Primary Other inflammatory disease of cervix, vagina and vulva Vulvar pruritus Pruritus of genital organs 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, vagina, 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 Lichen planus Urinary dribbling Post-void dribbling documented in this encounter [facility] Diagnosis Essential hypertension- Primary Unspecified essential hypertension Diabetes mellitus without complication (HCC) Type II or unspecified type diabetes mellitus without mention of complication, not stated as uncontrolled Other hyperlipidemia [facility] Lichen planus- Primary 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, vagina, 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 History of UTI Personal history of urinary (tract) infection Vaginal atrophy Postmenopausal atrophic vaginitis [facility] Diagnosis Urinary frequency- Primary Dysuria documented in this encounter [facility] Diagnosis Lichen planus- Primary Vaginal atrophy 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 note* Diagnosis Post-operative state- Primary Other postprocedural status Lichen planus documented in this encounter [facility] note* Diagnosis Encounter for screening mammogram for breast cancer documented in this encounter [facility] note* Diagnosis Diabetes mellitus without complication (HCC) Type II or unspecified type diabetes mellitus without mention of complication, not stated as uncontrolled documented [facility] this encounter [facility] Diagnostic Procedure Only (Routine) - Pending Review Specialty Diagnoses / Procedures Referred By Contac t Referred To Contact [facility] Diagnoses Encounter for screening mammogram for breast cancer Procedures YANELIS SCREENING SCREENING MAMMOGRAPHY BI 2-VIEW BREAST INC CAD Davon Bradley MD [address] [place] [address] [facility] [address] [place] [address] Referral ID Status Reason Start Date Expiration Date Visits Requested Visits Authorized [id number] Pending Review Auto-Generat ed Referral 2 06/13/2023 1 1 [facility] [place] Summary Purpose Family History No Family History Records FoundNo Family History Records FoundNo Family History Records FoundNo Family History Records Found Advance Directives No Advanced Directives Records FoundDocuments on File 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 Date 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 Advance Directive(s) 01/21/2022 7:12 AM Additional Source Comments INFORMATION SOURCE (unrecogn ized section and content) DATE CREATED AUTHOR AUTHOR'S ORGANIZ ATION 01/24/2022 [facility] DATE CREATED AUTHOR AUTHOR'S ORGANIZ ATION 01/29/2022 [facility] DATE CREATED AUTHOR AUTHOR'S ORGANIZ ATION 05/13/2023 [facility] Source Comments (unrecognize d section and content) In the event this informatio n is protected by the Federal Confidentiality of Alcohol and Drug Abuse Patient Records regulations: The Federal rules restrict any use of the information to criminally investigate or prosecute any alcohol or drug abuse patient.[facility] the event this information is protected by the Federal Confidentiality of Alcohol and Drug Abuse Patient Records regulations: The Federal rules restrict any use of the information to criminally investigate or prosecute any alcohol or drug abuse patient.[facility] [place] the event this information is protected by the Federal Confidentiality of Alcohol and Drug Abuse Patient Records regulations: The Federal rules restrict any use of the information to criminally investigate or prosecute any alcohol or drug abuse patient.[facility] [place] the event this information is protected by the Federal Confidentiality of Alcohol and Drug Abuse Patient Records regulations: The Federal rules restrict any use of the information to criminally investigate or prosecute any alcohol or drug abuse patient.[facility] [place] the event this information is protected by the Federal Confidentiality of Alcohol and Drug Abuse Patient Records regulations: The Federal rules restrict any use of the information to criminally investigate or prosecute any alcohol or drug abuse patient.[facility] [place] the event this information is protected by the Federal Confidentiality of Alcohol and Drug Abuse Patient Records regulations: The Federal rules restrict any use of the information to criminally investigate or prosecute any alcohol or drug abuse patient.[facility] [place] the event this information is protected by the Federal Confidentiality of Alcohol and Drug Abuse Patient Records regulations: The Federal rules restrict any use of the information to criminally investigate or prosecute any alcohol or drug abuse patient.[facility] [place] the event this information is protected by the Federal Confidentiality of Alcohol and Drug Abuse Patient Records regulations: The Federal rules restrict any use of the information to criminally investigate or prosecute any alcohol or drug abuse patient.[facility] [place] the event this information is protected by the Federal Confidentiality of Alcohol and Drug Abuse Patient Records regulations: The Federal rules restrict any use of the information to criminally investigate or prosecute any alcohol or drug abuse patient.[facility] the event this information is protected by the Federal Confidentiality of Alcohol and Drug Abuse Patient Records regulations: The Federal rules restrict any use of the information to criminally investigate or prosecute any alcohol or drug abuse patient.[facility] [place] the event this information is protected by the Federal Confidentiality of Alcohol and Drug Abuse Patient Records regulations: The Federal rules restrict any use of the information to criminally investigate or prosecute any alcohol or drug abuse patient.[facility] [place] the event this information is protected by the Federal Confidentiality of Alcohol and Drug Abuse Patient Records regulations: The Federal rules restrict any use of the information to criminally investigate or prosecute any alcohol or drug abuse patient.[facility] the event this information is protected by the Federal Confidentiality of Alcohol and Drug Abuse Patient Records regulations: The Federal rules restrict any use of the information to criminally investigate or prosecute any alcohol or drug abuse patient.[facility] [place] the event this information is protected by the Federal Confidentiality of Alcohol and Drug Abuse Patient Records regulations: The Federal rules restrict any use of the information to criminally investigate or prosecute any alcohol or drug abuse patient.[facility] [place] the event this information is protected by the Federal Confidentiality of Alcohol and Drug Abuse Patient Records regulations: The Federal rules restrict any use of the information to criminally investigate or prosecute any alcohol or drug abuse patient.[facility] [place] the event this information is protected by the Federal Confidentiality of Alcohol and Drug Abuse Patient Records regulations: The Federal rules restrict any use of the information to criminally investigate or prosecute any alcohol or drug abuse patient.[facility] [place] the event this information is protected by the Federal Confidentiality of Alcohol and Drug Abuse Patient Records regulations: The Federal rules restrict any use of the information to criminally investigate or prosecute any alcohol or drug abuse patient.[facility] [place] the event this information is protected by the Federal Confidentiality of Alcohol and Drug Abuse Patient Records regulations: The Federal rules restrict any use of the information to criminally investigate or prosecute any alcohol or drug abuse patient.[facility] [place] the event this information is protected by the Federal Confidentiality of Alcohol and Drug Abuse Patient Records regulations: The Federal rules restrict any use of the information to criminally investigate or prosecute any alcohol or drug abuse patient.[facility] [place] the event this information is protected by the Federal Confidentiality of Alcohol and Drug Abuse Patient Records regulations: The Federal rules restrict any use of the information to criminally investigate or prosecute any alcohol or drug abuse patient.[facility] [place] Reason for Visit (unrecogniz ed section and content) Reason Comments Rash x1 month Reason Comments Urinary Problem Reason Comments Medication Problem Reason Comments Vaginal Problem itching/burning Reason Comments Medication Question Reason Comments Results New Medication Reason Comments F/U 6 months Reason Comments UTI Reason Comments Forms Reason Comments Question Reason Comments Patient Update Reason Onset Date Comments Population Health Navigation Outreach 05/11/2023 ACO BP AND DM Care Teams (unrecognized sec tion and content) Hris Administrator Relationship Specialty Start Date End Date Davon Bradley MD [address] [facility] [place] [address] PCP - General 09/03/09 Hris Administrator Relationship Specialty Start Date End Date Davon Bradley MD [address] [place] [address] PCP - General 09/03/09 Hris Administrator Relationship Specialty Start Date End Date Davon Bradley MD [address] [facility] [place] [address] PCP - General 09/03/09 Hris Administrator Relationship Specialty Start Date End Date Davon Bradley MD [address] [facility] [place] [address] PCP - General 09/03/09 Hris Administrator Relationship Specialty Start Date End Date Davon Bradley MD [address] [facility] [place] [address] PCP - General 09/03/09 Hris Administrator Relationship Specialty Start Date End Date Davon Bradley MD [address] [facility] [place] [address] PCP - General 09/03/09 Hris Administrator Relationship Specialty Start Date End Date Davon Bradley MD [address] [facility] [place] [address] PCP - General 09/03/09 Hris Administrator Relationship Specialty Start Date End Date Davon Bradley MD [address] [place], [place] [address] PCP - General 09/03/09 Hris Administrator Relationship Specialty Start Date End Date Davon Bradley MD [address] [place], [place] [id number] PCP - General 09/03/09 Hris Administrator Relationship Specialty Start Date End Date Davon Bradley MD [address] [place], [place] [id number] [facility] General 09/03/09 Hris Administrator Relationship Specialty Start Date End Date Davon Bradley MD [address] [place], [place] [id number] [facility] General 09/03/09 Hris Administrator Relationship Specialty Start Date End Date Davon Bradley MD [address], [place] [phone] [facility] General 09/03/09 FOR RECORDS PERTAINING TO PATIENTS WHO ARE OR HAVE BEEN ENROLLED IN A CHEMICAL DEPENDENCY/SUBSTANCEABUSE PROGRAM, SOME INFORMATION MAY BE OMITTED. This clinical summary was aggregated from multiple sources. Caution should be exercised in using it in the provision of clinical care. This summary normalizes information from multiple sources, and as a consequence, information in this document may materially change the coding, format and clinical context of patient data. In addition, data may be omitted in some cases. CLINICAL DECISIONS SHOULD BE BASED ON THE PRIMARY CLINICAL RECORDS. [employer] [facility]. provides no warranty or guarantee of the accuracy or completeness of information in this document.
[2023-08-28 09:56] LABS: ALB/GLOB Ratio 0.9 RATIO (0.9-2.4); AST(SGOT) 28 U/L (15-37); Alanine Aminotransfer ALT/SGPT 37 U/L (13-56); Alkaline Phosphatase 127 U/L (45-117); Anion Gap 3 (5-15); BUN 20 mg/dL (7-18); BUN/Creat Ratio 18.9 RATIO (10-20); Calcium,Total 9.6 mg/dL (8.5-10.1); Chloride 116 mmol/L (98-107); Cholesterol 146 mg/dL (200); Creatinine, Serum 1.06 mg/dL (0.55-1.02); EST Glomerular Filtration Rate 54 mL/min (>60); Est Glom Filt Rate - Afr Amer 65 mL/min (>60); Globulin 3.4 g/dL (2.2-4.2); Glucose 111 mg/dL (74-106); High Density Lipoprotein 44 mg/dL; Potassium 4.5 mmol/L (3.5-5.1); Protein, Total 6.4 g/dL (6.4-8.2); Sodium Level 143 mmol/L (136-145); Thyroid Stim Hormone (TSH) 3.69 uIU/mL (0.358-3.74); Triglycerides 156 mg/dL; Very Low Density Lipoprotein 31 mg/dL (5-40)
== END ==
LOC: OLS.SWAL 05:00
PROVIDERS: PCP Internal Medicine; Visit Provider Internal Medicine
DX: E78.49 Other hyperlipidemia (principal); I10 Essential (primary) hypertension; E11.9 Type 2 diabetes mellitus without complications
CPT/HCPCS: 36415; 80053; 80061; 83036; 84443

== ENCOUNTER → 2023-09-17 | Outpatient (REF) | payer MEDICARE, MEDICAID, SELFPAY ==
--- OUTSIDE RECORDS SUMMARY | 2023-09-17 04:41 | XMS RPT_ITS | CCD ---
Author Name Unknown Address [address] [place] [address] Organization [facility] Care Team Providers Care Visualizer Name Role Phone MARBELLA HOLLINS Unavailable Unavailable PHYSICIAN, NONE Unavailable Unavailable Zheng RASCON, Davon Head Primary Care Provider [phone] Davon Bradley MD Primary Care Provider [phone] Davon Bradley MD Primary Care Provider [phone] Allergies Allergy Classification Reported Allergen(s) Allergy Type Date of Onset Reaction(s) Facility (14 sources) Penicillins Propensity to adverse reactions 6 Other: See Comments [facility] Work Phone: (20 sources) Seasonal allergy Propensity to adverse reactions 4 Intolerance [facility] Work Phone: (6 sources) Penicillins Propensity to adverse reactions to drug 6 Other: See Comments [facility] Work Phone: Medications Current Medications Medication Drug [...] Drug Class(es) Dates Sig (Normalized) Sig (Original) [id number] 200 actuat albuterol 0.09 mg/actuat metered dose [...] Diastolic blood pressure 82 mm[Hg] Indigo Mayfield APRN.FORESTER AIDE Work Phone: [facility] 12-25-2021 09:22-0400 Systolic blood pressure 136 mm[Hg] Indigo Mayfield APRN.CNP Work Phone: [facility] 12-16-2021 14:10-0400 Diastolic blood pressure 74 mm[Hg] Davon Bradley MD Work Phone: [facility] 12-16-2021 14:10-0400 Heart rate 60 /min Davon Bradley MD Work Phone: [facility] 12-16-2021 14:10-0400 Systolic blood pressure 114 mm[Hg] Davon Bradley MD Work Phone: [facility] 12-16-2021 14:04-0400 Body temperature 97.3 [degF] Davon Bradley MD Work Phone: [facility] 12-16-2021 14:04-0400 Body weight 80.2 kg Davon Bradley MD Work Phone: [facility] 12-05-2021 13:47-0400 Body weight 80.29 kg Cami Farris APRN.FORESTER AIDE Work Phone: [facility] 12-05-2021 13:47-0400 Diastolic blood pressure 76 mm[Hg] Cami Farris APRN.FORESTER AIDE Work Phone: [facility] 12-05-2021 13:47-0400 Systolic blood pressure 140 mm[Hg] Cami Farris APRN.FORESTER AIDE Work Phone: [facility] Encounters Encounter Date Encounter Type Care Provider Facility Start: 05-11-2023 ambulatory Sarah Diaz [facility] Procedures Date Procedure Procedure Detail Performing Clinician Start: 12-05-2021 Urnls dip stick/tabl et rgnt auto w/o microscopy Cami Farris APRN.FORESTER AIDE Work Phone: Start: 06-12-2021 Adult depression scr eening assessment Davon Bradley MD Work Phone: Start: 09-07-2019 Colonoscopy Davon Keenan MD Work Phone: Start: 06-16-2018 Mammography Davon Keenan MD Work Phone: Plan of Treatment Date Care Activity Detail Author Start: 09-07-2029 Colonoscopy COLONOSCOPY [facility] Start: 09-07-2029 COLORECTAL CANCER SCREENING COLORECTAL CANCER SCREENING [facility] Start: 04-03-2023 Influenza vaccination [facility] Start: 01-13-2023 End: 03-15-2023 ALBUMIN/CREAT RATIO RND UR ALBUMIN/CREAT RATIO RND UR Lab Routine Diabetes mellitus without complication (HCC) Expected: 01/13/2023, Expires: 03/15/2023 [facility] Work Phone: Immunizations Immunization Date Immunization Notes Care Provider Fa cility 09-24-2021 COVID-19 vaccine, ag e 12+ yr ([id number]) Davon Bradley MD Work Phone: [facility] 06-12-2021 influenza, high-dose , quadrivalent vaccine (FLUZONE HIGH DOSE QUADRIVALENT) Davon Bradley MD Work Phone: [facility] Work Phone: 06-12-2021 influenza virus vacc ine, unspecified formulation Sarah Birmingham MA [facility] 05-10-2020 influenza, high-dose , quadrivalent vaccine (FLUZONE HIGH DOSE QUADRIVALENT) Davon Bradley MD Work Phone: [facility] Work Phone: 05-24-2019 influenza, high dose seasonal, preservative-free Davon Bradley MD Work Phone: [facility] 06-09-2018 influenza, high dose seasonal, preservative-free Davon Bradley MD Work Phone: [facility] 05-12-2018 influenza, seasonal, injectable, preservative free Davon Bradley MD Work Phone: [facility] 06-12-2017 influenza, high dose seasonal, preservative-free Davon Bradley MD Work Phone: [facility] 06-20-2016 influenza, high dose seasonal, preservative-free Davon Bradley MD Work Phone: [facility] Work Phone: 12-17-2015 pneumococcal conjuga te vaccine, 13 valent Davon Bradley MD Work Phone: [facility] 06-15-2015 influenza, high dose seasonal, preservative-free Davon Bradley MD Work Phone: [facility] Work Phone: 06-06-2014 influenza, seasonal, injectable Davon Bradley MD Work Phone: [facility] 05-19-2013 influenza virus vacc ine, unspecified formulation Davon Bradley MD Work Phone: [facility] 01-25-2013 pneumococcal polysaccharide vaccine, 23 valent Davon Bradley MD Work Phone: [facility] Work Phone: 05-10-2012 influenza virus vacc ine, whole virus Davon Bradley MD Work Phone: [facility] Work Phone: 04-26-2009 influenza virus vacc ine, unspecified formulation Davon Bradley MD Work Phone: [facility] 06-02-2008 influenza virus vacc ine, whole virus Davon Bradley MD Work Phone: [facility] Work Phone: 04-06-2008 pneumococcal polysaccharide vaccine, 23 valent Davon Bradley MD Work Phone: [facility] 11-23-2007 tetanus and diphther ia toxoids, adsorbed, preservative free, for adult use (2 Lf of tetanus toxoid and 2 Lf of diphtheria toxoid) Davon Bradley MD Work Phone: [facility] 06-03-2007 influenza virus vacc ine, unspecified formulation Davon Bradely MD Work Phone: [facility] Payers Date Payer Category Payer Unknown [id number] 2013 Medicare MEDICARE MEDICAR E A AND B [id number] 2013-Present [phone] [place] [address] Medicare [id number] 2013 Medicare MEDICARE MEDICAR E A AND B [id number] 2013-Present [phone] [place] [address] Medicare [id number] Social History Date Type Detail Facility Tobacco smoking stat us [facility] Never smoked tobacco [facility] Work Phone: Start: 09-24-2021 End: 02-19-2022 Alcohol intake Current non-drinker of alcohol (finding) [facility] Start: 1950 Sex Assigned At Not on file [facility] Start: 10-13-2021 End: 01-21-2022 Exposure to SARS-CoV-2 (event) Not sure [facility] Start: 02-19-2022 End: 08-29-2022 History of Social function [facility] Work Phone: Start: 02-19-2022 End: 08-29-2022 Tobacco use panel [facility] Work Phone: Adult Depression Screening Assessment 0 [facility] Work Phone: Medical Equipment Procedure Code Equipment [...] Note Patient Outreach (MJ HUSTONAV) CLARI STEPHENS ([id number]) 1950 F Date Time Provider Department 05/11/23 SARAH BIRMINGHAMV During your visit today, we recorded the following information about you: Sarah Birmingham MA 05/11/2023 2:19 PM Signed POPULATION HEALTH NAVIGATION OUTREACH Action/ LVM [employer]HART MESSAGE SENT ANNUAL MEDICARE WELLNESS BP Controlled (<130/80) due on 11/27/2021 HbA1C due on 06/18/2022 Advance Directive Discussion Never done Annual PCP Team Chronic Disease Visit due on 12/16/2022 Influenza Vaccine(1) due on 04/03/2023 Patient Identified by Name and : NO Outreach Outcome/Action Unable to reach patient: Left message [employer] message sent Did you use a PCP [...] [K21.9] 07/12/2007 Routine general medical examination at [facility]/12/2007 01/01/2012 Impaired fasting glucose [R73.01] 03/04/2010 04/20/2014 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 [facility] 05-11-2023 Note HNO ID: [id number] Author: Sarah Birmingham MA Service: ? Author Type: Environmental Services Lead Type: Progress Notes Filed: 05/11/2023 2:19 PM Note Text: POPULATION HEALTH NAVIGATION OUTREACH Action/FYI LVM [employer] MESSAGE SENT ANNUAL MEDICARE WELLNESS BP Controlled (<130/80) due on 11/27/2021 HbA1C due on 06/18/2022 Advance Directive Discussion Never done Annual PCP Team Chronic Disease Visit due on 12/16/2022 Influenza Vaccine(1) due on 04/03/2023 Patient Identified by Name and : NO Outreach Outcome/Action Unable to reach patient: Left message [employer] message sent Did you use a PCP [...] Birmingham MA May 11, 2023 8:22 AM [facility] 05-11-2023 History of Presen t illness Narrative POPULATION HEALTH NAVIGATION OUTREACH Action/I LVM [employer] MESSAGE SENT ANNUAL MEDICARE WELLNESS BP Controlled (<130/80) due on 11/27/2021 HbA1C due on 06/18/2022 Advance Directive Discussion Never done Annual PCP Team Chronic Disease Visit due on 12/16/2022 Influenza Vaccine(1) due on 04/03/2023 Patient Identified by Name and : NO Outreach Outcome/Action Unable to reach patient: Left message [employer] message sent Did you use a PCP [...] 2023 8:22 AM documented in this encounter [facility] 01-13-2023 Note Patient Outreach (IN TMMN) CLARI STEPHENS ([id number]) 1950 F Date Time Provider Department 01/13/23 [...] Order(s):ALBUMIN/CREAT RATIO RND UR [SQUACR] Order #: [id number] FUTURE HGB A1C [PUUEH4A] Order #: [id number] FUTURE Prescriptions as of 01/16/2023 - oxyCODONE [...] Encounter Status:Closed by SONIA SIMS on 01/16/23 [facility] 11-11-2022 Note Patient Outreach (IN TMMN) CLARI STEPHENS ([id number]) 1950 F Date Time Provider Department 11/11/22 [...] Order(s):ALBUMIN/CREAT RATIO RND UR [SQUACR] Order #: [id number] FUTURE HGB A1C [[id number]] Order #: [id number] FUTURE Prescriptions as of 11/14/2022 - oxyCODONE [...] [K21.9] 07/12/2007 Routine general medical examination at [facility]07/12/2007 01/01/2012 Impaired fasting glucose [R73.01] 03/04/2010 04/20/2014 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.] for screening mammogram for breast cancer [Z12.31] Order(s):[facility] SCREENING [[id number]] Order #: [id number] FUTURE Prescriptions as of 05/19/2022 - oxyCODONE [...] [K21.9] 07/12/2007 Routine [facility] at [facility]07/12/2007 01/01/2012 Impaired fasting glucose [R73.01] 03/04/2010 04/20/2014 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 Call office/go to ER if you are unable to urinate documented in this encounter [facility] 02-19-2022 History of Presen t illness Narrative [...] resolved? Not Applicable Abnormal vaginal discharge: no Director Of Consumer Marketing offered:Patient declines OBJECTIVE: There were no vitals [...] Indigo Mayfield APRN.DEEJAY documented in this encounter [facility] 02-05-2022 Instructions Indigo Mayfield APRN.CNP - 02/05/2022 8:25 AM EDT Follow up in 1-2 weeks Apply pea sized amount of clobetasol cream all over vaginal opening and labia Apply 1 g of vaginal estrogen cream with finger around vaginal opening with gentle spreading of labia documented in this encounter [facility] 02-05-2022 History of Presen t illness Narrative [...] you received about pain medications helpful? Yes Director Of Consumer Marketing offered:Patient declines OBJECTIVE: There were no vitals [...] Indigo Mayfield APRN.DEEJAY documented in this encounter [facility] 01-23-2022 Miscellaneous Notes Spoke with Luiza, patient's [...] Chung Lion APRN.DEEJAY documented in this encounter [facility] 01-20-2022 Miscellaneous Notes Provider in pre-admission calling stating they still have not been able to get ahold of patient. Please advise if able to move forward with surgery tomorrow as patient has a pace maker and was supposed to be evaluated. Please advise and call pre-admission [phone] ask for Unique. Thank you Preadmission testing employee called. She saw that patient has surgery with Dr. Miller on 01/21/2022. She's tried to reach the patient multiple times, but she hasn't answer, nor has she called back in regards to preadmission testing. Employee just wanted to let Dr. Miller know. Thank you. documented in this encounter [facility] 01-16-2022 Miscellaneous Notes Called and all reviewed with pts daughter. She requested we faxed the admission forms to H[facility] at [facility]. This was done. At this time pt still plans on coming in for appts with pcp. Did request they complete the office if this info does change. Form completed. rec'd forms from pts daughter. They are [facility] assisted living initial and annual health assessment. Printed last office note for pcp to review. documented in this encounter [facility] 01-13-2022 History of Presen t illness Narrative [...] PFSH obtained by others. Maricel Miller MD Director Of Consumer Marketing offered: Patient declines. OBJECTIVE: There were no [...] and possible cystoscopy on ThursdayJanuary 21 at [place] 2. No pre-operative appointments needed and will sign consent on the day of surgery 3. Pt will follow-up with Indigo Mayfield 1-2 weeks postoperatively and then restart clobetasol cream and vaginal estrogen cream 4. Will re-evaluate urinary incontinence and recurrent UTIs after she has undergone labial adhesiolysis I spent 30 minutes in the visit, with more than 50% of the total [id number]-[id number] time of the visit in counseling / coordination of care. This time included preparing to see the patient, [id number] patient care, completing clinical documentation, obtaining and/or reviewing separately obtained history, performing a medically appropriate examination, counseling and educating the patient/family/caregiver and ordering medications, tests, or procedures. Maricel Miller MD documented in this encounter [facility] 01-07-2022 Miscellaneous Notes Patient notified. Kerline Pedroza [...] Kerline Pedroza RN documented in this encounter [facility] 12-25-2021 Instructions Indigo Mayfield APRN.DEEJAY - 12/25/2021 9:52 AM EDT Follow up with Dr. Miller in 1 month. As you spread your labia apart nightly, apply 1 application of clobetasol cream. Twice weekly, apply vaginal estrogen cream before bed. If you cannot empty your bladder or your symptoms do not improve, call the office. documented in this encounter [facility] 12-25-2021 History of Presen t illness Narrative [...] and vaginal estrogen inconsistently until her last HELPER/DRIVER appointment with Cami Farris CNP on 12/05/2021 [...] should follow up with UroGyn by the HELPER/DRIVER. 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 She has a previous history of an abnormal mammogram with benign breast biopsy LMP: No LMP recorded. Patient is postmenopausal.; Menopause yes: Menstrual history: Menarche: teens; Deliveries: I have confirmed and edited as necessary, the PFSH obtained by others. Indigo Mayfield APRN.DEEJAY Director Of Consumer Marketing offered: Patient accepts, visit chaperoned by Magdalena [...] which included preparing to see the patient, zjic-em-rrov patient care, completing clinical documentation, obtaining and/or reviewing separately obtained history, performing a medically appropriate examination, counseling and educating the patient/family/caregiver and ordering medications, tests, or procedures Indigo Mayfield APRN.FORESTER AIDE documented in this encounter [facility] 12-16-2021 History of Presen t illness Narrative [...] Davon Bradley MD documented in this encounter [facility] 12-12-2021 Miscellaneous Notes Patient notified. She only [...] Cami Farris APRN.CNP documented in this encounter [facility] 12-05-2021 Miscellaneous Notes Spoke to pharmacist at [facility] and medication instructions clarified. Margoth Perry RN 1 gm twice weekly. Cami Farris APRN.CNP Pharmacy called. Needing clarification on Estradiol cream. This is how it reads: Use 1 g vaginally two times a week, THEN 1 g two times a week. Apply to affected area daily for 2 weeks then twice weekly. documented in this encounter [facility] 12-05-2021 Instructions Cami Farris APRN.CNP - 12/05/2021 2:12 PM EDT Incontinence pads such as Poise. Hypoallergenic, no dyes, no fragrances. Use them only when needed. Wash and dry skin after incontinence of urine and then apply Aquaphor or A&D to protect the skin. documented in this encounter [facility] 12-05-2021 History of Presen t illness Narrative [...] correct information. Evaluated by Dr Miller, uro director 01/2021 - Discussed options with patient including [...] L1 SAB0 IAB0 Ectopic0 Multiple0 Live Births0 Cartography Supervisor History LMP: Postmenopausal Age at Menarche: Age at First : Age at Menopause: Cartography Supervisor History Comments: Sexual Activity: Never; No partner data on record Contraception: No contraception data on record PAST MEDICAL HISTORY Diagnosis Date AORTIC VALVE DISORDER 12/03/2005 [facility] 12-03-05: ECG showed SB, no LVH-rec Echo to consider bicupsid AV Echo 03-09: LA 42 mm, 61%, mild LVH, mod-severe calcific -orifice 1.1 cm2, 1+ TR, RVSP 31 [place] 02-07: rec repeat Echo in 6 mo [...] - Follow-up appointment with Dr Miller, uro director 4. Lichen planus - ICD9: 697.0, ICD10: [...] which included preparing to see the patient, rkkm-lg-saam patient care, completing clinical documentation, obtaining and/or reviewing separately obtained history, performing a medically appropriate examination, counseling and educating the patient/family/caregiver, ordering medications, tests, or procedures and communicating results to the patient/family/caregiver. documented in this encounter [facility] 11-04-2021 Miscellaneous Notes Patient's request for medication [...] Iliana Romeo LPN documented in this encounter [facility] 11-02-2021 Miscellaneous Notes Reason For Call: Urinary [...] her providers are aware Protocols used: URINARY [id number], URINATION PAIN - [id number] documented in this encounter [facility] 10-28-2021 History of Presen t illness Narrative [...] Davon Bradley MD documented in this encounter [facility] 10-25-2021 Instructions Davon Bradley MD - 10/25/2021 5:05 PM EDT SEE MEDICATION LIST FOR CHANGES. documented in this encounter [facility] 10-23-2021 Miscellaneous Notes Spoke with patient. Given [...] prednisone one week ago today. She uses [facility] for her pharmacy if needed. [...] left? Please advise documented in this encounter [facility] documented as of this encounter (statuses as of 10/23/2021) [facility] of Past illness Narrative* Problem Noted [...] of this encounter (statuses as of 10/28/2021) [facility] Narrative* Problem Noted [...] -orifice 1.1 cm2, 1+ TR, RVSP 31 Mason 02-07: rec repeat Echo in 6 mo (reordered in 01-09 as pt did not do test) Echo 02-08: 65%, LVH, trivial MR, RVSP 24, mod-sev of 1 cm2 documented as of this encounter (statuses as of 11/02/2021) [facility] of [facility] Narrative* Problem Noted [...] of this encounter (statuses as of 11/04/2021) [facility] Narrative* Problem Noted [...] of this encounter (statuses as of 12/05/2021) [facility] of [facility] Narrative* Problem Noted [...] -orifice 1.1 cm2, 1+ TR, RVSP 31 Mason 02-07: rec repeat Echo in 6 mo (reordered in 01-09 as pt did not do test) Echo 02-08: 65%, LVH, trivial MR, RVSP 24, mod-sev of 1 cm2 documented as of this encounter (statuses as of 12/05/2021) [facility] of [facility] illness Narrative* Problem Noted [...] -orifice 1.1 cm2, 1+ TR, RVSP 31 [place] 02-07: rec repeat Echo in 6 mo (reordered in 01-09 as pt did not do test) Echo 02-08: 65%, LVH, trivial MR, RVSP 24, mod-sev of 1 cm2 documented as of this encounter (statuses as of 12/12/2021) [facility] of [facility] illness Narrative* Problem Noted [...] of this encounter (statuses as of 12/16/2021) [facility] Narrative* Problem Noted [...] -orifice 1.1 cm2, 1+ TR, RVSP 31 Mason 02-07: rec repeat Echo in 6 mo (reordered in 01-09 as pt did not do test) Echo 02-08: 65%, LVH, trivial MR, RVSP 24, mod-sev of 1 cm2 documented as of this encounter (statuses as of 12/25/2021) [facility] of [facility] Narrative* Problem Noted [...] of this encounter (statuses as of 01/07/2022) [facility] Narrative* Problem Noted [...] of this encounter (statuses as of 01/13/2022) [facility] Narrative* Problem Noted [...] -orifice 1.1 cm2, 1+ TR, RVSP 31 Mason 02-07: rec repeat Echo in 6 mo (reordered in 01-09 as pt did not do test) Echo 02-08: 65%, LVH, trivial MR, RVSP 24, mod-sev of 1 cm2 documented as of this encounter (statuses as of 01/16/2022) [facility] Narrative* Problem Noted [...] of this encounter (statuses as of 01/20/2022) [facility] Narrative* Problem Noted [...] -orifice 1.1 cm2, 1+ TR, RVSP 31 [place] 02-07: rec repeat Echo in 6 mo (reordered in 01-09 as pt did not do test) Echo 02-08: 65%, LVH, trivial MR, RVSP 24, mod-sev of 1 cm2 documented as of this encounter (statuses as of 01/23/2022) [facility] Narrative* Problem Noted [...] of this encounter (statuses as of 02/05/2022) [facility] Narrative* Problem Noted [...] -orifice 1.1 cm2, 1+ TR, RVSP 31 [place] 02-07: rec repeat Echo in 6 mo (reordered in 01-09 as pt did not do test) Echo 02-08: 65%, LVH, trivial MR, RVSP 24, mod-sev of 1 cm2 documented as of this encounter (statuses as of 02/19/2022) [facility] Narrative* Problem Noted [...] -orifice 1.1 cm2, 1+ TR, RVSP 31 Mason 02-07: rec repeat Echo in 6 mo (reordered in 01-09 as pt did not do test) Echo 02-08: 65%, LVH, trivial MR, RVSP 24, mod-sev of 1 cm2 documented as of this encounter (statuses as of 05/19/2022) [facility] History of Past illness Narrative* Problem Noted [...] of this encounter (statuses as of 11/14/2022) [facility] of Past illness Narrative* Problem Noted [...] -orifice 1.1 cm2, 1+ TR, RVSP 31 Mason 02-07: rec repeat Echo in 6 mo (reordered in 01-09 as pt did not do test) Echo 02-08: 65%, LVH, trivial MR, RVSP 24, mod-sev of 1 cm2 documented as of this encounter (statuses as of 01/16/2023) [facility] History of Past illness Narrative* Problem Noted [...] -orifice 1.1 cm2, 1+ TR, RVSP 31 Mason 02-07: rec repeat Echo in 6 mo (reordered in 01-09 as pt did not do test) Echo 02-08: 65%, LVH, trivial MR, RVSP 24, mod-sev of 1 cm2 documented as of this encounter (statuses as of 05/12/2023) [facility] Diagnosis Urticaria- Primary Urticaria, unspecified Gastroesophageal reflux disease without esophagitis Esophageal reflux Diabetes mellitus without complication (HCC) Type II or unspecified type diabetes mellitus without mention of complication, not stated as uncontrolled [facility] Diagnosis Dermatitis of vulva- Primary Other inflammatory disease of cervix, vagina and vulva Vulvar pruritus Pruritus of genital organs 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, vagina, 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 Lichen planus Urinary dribbling Post-void dribbling [facility] Diagnosis Essential hypertension- Primary Unspecified essential hypertension Diabetes mellitus without complication (HCC) Type II or unspecified type diabetes mellitus without mention of complication, not stated as uncontrolled Other hyperlipidemia [facility] Lichen planus- Primary 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, vagina, 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 History of UTI Personal history of urinary (tract) infection Vaginal atrophy Postmenopausal atrophic vaginitis [facility] Diagnosis Urinary frequency- Primary Dysuria [facility] Diagnosis Lichen planus- Primary Vaginal atrophy 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, vagina, 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 [facility] Diagnosis Post-operative state- Primary Other postprocedural status documented in this encounter [facility] note* Diagnosis Post-operative state- Primary Other postprocedural status Lichen planus documented in this encounter [facility] note* Diagnosis Encounter for screening mammogram for breast cancer documented in this encounter [facility] note* Diagnosis Diabetes mellitus without complication (HCC) Type II or unspecified type diabetes mellitus without mention of complication, not stated as uncontrolled [facility] Diagnostic Procedure Only (Routine) - Pending Review Specialty Diagnoses / Procedures Referred By Contac t Referred To Contact [facility] Diagnoses Encounter for screening mammogram for breast cancer Procedures YANELIS SCREENING SCREENING MAMMOGRAPHY BI 2-VIEW BREAST INC CAD Davon Bradley MD [address] [place] [address] [facility] [address] [place] [address] Referral ID Status Reason Start Date Expiration Date Visits Requested Visits Authorized [id number] Pending Review Auto-Generat ed Referral 2 06/13/2023 1 1 [facility] Summary Purpose Family History No Family History Records FoundNo Family History Records FoundNo Family History Records FoundNo Family History Records Found Advance Directives No Advanced Directives Records FoundDocuments on File Type Date 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 Correspondence Section Expl anation Advance Directive(s) 01/21/2022 7:12 AM Additional Source Comments INFORMATION SOURCE (unrecogn ized section and content) DATE CREATED AUTHOR AUTHOR'S ORGANIZ ATION 01/24/2022 [facility] DATE CREATED AUTHOR AUTHOR'S ORGANIZ ATION 01/29/2022 [facility] DATE CREATED AUTHOR AUTHOR'S ORGANIZ ATION 05/13/2023 [facility] Source Comments (unrecognize d section and content) In the event this informatio n is protected by the Federal Confidentiality of Alcohol and Drug Abuse Patient Records regulations: The Federal rules restrict any use of the information to criminally investigate or prosecute any alcohol or drug abuse patient.[facility] the event this information is protected by the Federal Confidentiality of Alcohol and Drug Abuse Patient Records regulations: The Federal rules restrict any use of the information to criminally investigate or prosecute any alcohol or drug abuse patient.[facility] the event this information is protected by the Federal Confidentiality of Alcohol and Drug Abuse Patient Records regulations: The Federal rules restrict any use of the information to criminally investigate or prosecute any alcohol or drug abuse patient.[facility] the event this information is protected by the Federal Confidentiality of Alcohol and Drug Abuse Patient Records regulations: The Federal rules restrict any use of the information to criminally investigate or prosecute any alcohol or drug abuse patient.[facility] the event this information is protected by the Federal Confidentiality of Alcohol and Drug Abuse Patient Records regulations: The Federal rules restrict any use of the information to criminally investigate or prosecute any alcohol or drug abuse patient.[facility] the event this information is protected by the Federal Confidentiality of Alcohol and Drug Abuse Patient Records regulations: The Federal rules restrict any use of the information to criminally investigate or prosecute any alcohol or drug abuse patient.[facility] the event this information is protected by the Federal Confidentiality of Alcohol and Drug Abuse Patient Records regulations: The Federal rules restrict any use of the information to criminally investigate or prosecute any alcohol or drug abuse patient.[facility] the event this information is protected by the Federal Confidentiality of Alcohol and Drug Abuse Patient Records regulations: The Federal rules restrict any use of the information to criminally investigate or prosecute any alcohol or drug abuse patient.[facility] the event this information is protected by the Federal Confidentiality of Alcohol and Drug Abuse Patient Records regulations: The Federal rules restrict any use of the information to criminally investigate or prosecute any alcohol or drug abuse patient.[facility] the event this information is protected by the Federal Confidentiality of Alcohol and Drug Abuse Patient Records regulations: The Federal rules restrict any use of the information to criminally investigate or prosecute any alcohol or drug abuse patient.[facility] the event this information is protected by the Federal Confidentiality of Alcohol and Drug Abuse Patient Records regulations: The Federal rules restrict any use of the information to criminally investigate or prosecute any alcohol or drug abuse patient.[facility] the event this information is protected by [...] or prosecute any alcohol or drug abuse patient.[facility] the event this information is protected by the Federal Confidentiality of Alcohol and Drug Abuse Patient Records regulations: The Federal rules restrict any use of the information to criminally investigate or prosecute any alcohol or drug abuse patient.[facility] the event this information is protected by the Federal Confidentiality of Alcohol and Drug Abuse Patient Records regulations: The Federal rules restrict any use of the information to criminally investigate or prosecute any alcohol or drug abuse patient.[facility] the event this information is protected by the Federal Confidentiality of Alcohol and Drug Abuse Patient Records regulations: The Federal rules restrict any use of the information to criminally investigate or prosecute any alcohol or drug abuse patient.[facility] the event this information is protected by the Federal Confidentiality of Alcohol and Drug Abuse Patient Records regulations: The Federal rules restrict any use of the information to criminally investigate or prosecute any alcohol or drug abuse patient.[facility] the event this information is protected by the Federal Confidentiality of Alcohol and Drug Abuse Patient Records regulations: The Federal rules restrict any use of the information to criminally investigate or prosecute any alcohol or drug abuse patient.[facility] the event this information is protected by the Federal Confidentiality of Alcohol and Drug Abuse Patient Records regulations: The Federal rules restrict any use of the information to criminally investigate or prosecute any alcohol or drug abuse patient.[facility] the event this information is protected by the Federal Confidentiality of Alcohol and Drug Abuse Patient Records regulations: The Federal rules restrict any use of the information to criminally investigate or prosecute any alcohol or drug abuse patient.[facility] Reason for Visit (unrecogniz ed section and [...] Care Teams (unrecognized sec tion and content) Visualizer Relationship Specialty Start Date End Date Davon Bradley MD [address] [facility] [place] [address] PCP - General 09/03/09 Visualizer Relationship Specialty Start Date End Date Davon Bradley MD [address] [facility] [place] [address] PCP - General 09/03/09 Visualizer Relationship Specialty Start Date End Date Davon Bradley MD [address] [facility] [place] [address] PCP - General 09/03/09 Visualizer Relationship Specialty Start Date End Date Davon Bradley MD [address] [facility] [place] [address] PCP - General 09/03/09 Visualizer Relationship Specialty Start Date End Date Davon Bradley MD [address] [facility] [place] [address] PCP - General 09/03/09 Visualizer Relationship Specialty Start Date End Date Davon Bradley MD [address] [facility] [place] [address] PCP - General 09/03/09 Visualizer Relationship Specialty Start Date End Date Davon Bradley MD [address] [facility] [place] [address] PCP - General 09/03/09 Visualizer Relationship Specialty Start Date End Date Davon Bradley MD [address] [place], [place] [id number] PCP - General 09/03/09 Visualizer Relationship Specialty Start Date End Date Davon Bradley MD [address] [place], [place] [id number] PCP - General 09/03/09 Visualizer Relationship Specialty Start Date End Date Davon Bradley MD [address], [place] [id number] [facility] General 09/03/09 Visualizer Relationship Specialty Start Date End Date Davon Bradley MD [address], [place] [id number] [facility] General 09/03/09 Visualizer Relationship Specialty Start Date End Date Davon Bradley MD [address], [place] [id number] [facility] General 09/03/09 FOR RECORDS PERTAINING TO [...] BE BASED ON THE PRIMARY CLINICAL RECORDS. [employer] [facility]. provides no warranty or guarantee of the accuracy or completeness of information in this document.
[2023-09-17 09:22] LABS: Hemoglobin A1c 6.2 % (3.8-5.6)
== END ==
LOC: OLS.SWAL 05:00
PROVIDERS: PCP Internal Medicine; Visit Provider Internal Medicine
DX: E11.9 Type 2 diabetes mellitus without complications (principal)
CPT/HCPCS: 36415; 83036

== ENCOUNTER → 2023-11-27 | Outpatient (REF) | payer MEDICAID, SELFPAY ==
[2023-11-27 08:12] LABS: ALB/GLOB Ratio 0.8 RATIO (0.9-2.4); AST(SGOT) 32 U/L (15-37); Alanine Aminotransfer ALT/SGPT 38 U/L (13-56); Albumin, Serum 2.9 g/dL (3.2-5.0); Alkaline Phosphatase 119 U/L (45-117); Anion Gap 6 (5-15); BUN 22 mg/dL (7-18); Calcium,Total 9.5 mg/dL (8.5-10.1); Chloride 113 mmol/L (98-107); Cholesterol 135 mg/dL (200); Creatinine, Serum 1.05 mg/dL (0.55-1.02); EST Glomerular Filtration Rate 54 mL/min (>60); Est Glom Filt Rate - Afr Amer 66 mL/min (>60); Globulin 3.7 g/dL (2.2-4.2); Glucose 105 mg/dL (74-106); High Density Lipoprotein 39 mg/dL; Potassium 4.5 mmol/L (3.5-5.1); Protein, Total 6.6 g/dL (6.4-8.2); Sodium Level 142 mmol/L (136-145); Thyroid Stim Hormone (TSH) 2.76 uIU/mL (0.358-3.74); Triglycerides 100 mg/dL; Very Low Density Lipoprotein 20 mg/dL (5-40)
== END | disposition home or self-care (01) ==
LOC: OLS.SWAL 05:00
PROVIDERS: PCP Internal Medicine; Visit Provider Internal Medicine
DX: E11.9 Type 2 diabetes mellitus without complications (principal); I10 Essential (primary) hypertension; E78.5 Hyperlipidemia, unspecified; E03.9 Hypothyroidism, unspecified
CPT/HCPCS: 36415; 80053; 80061; 83036; 84443

== ENCOUNTER → 2023-12-17 | Outpatient (CLI) | payer MEDICAID, MEDICARE, SELFPAY ==
--- NOTE | 2023-12-17 13:32 | CDU_ITS ---
Reason For Study: bruit Rt. Velocities/BP Lt. Velocities/BP Prox CCA 89.1/7.8 cm/sec. Prox CCA 77.8/19.2 cm/sec. Mid CCA 90.0/17.3 cm/sec. Mid CCA 74.0/20.1 cm/sec. Dist CCA 51.3/16.3 cm/sec. Dist CCA 68.3/20.1 cm/sec. Prox ICA 87.2/18.2 cm/sec. Prox ICA 57.0/14.5 cm/sec. Mid ICA 78.7/16.3 cm/sec. Mid ICA 39.0/12.6 cm/sec. Dist ICA 65.5/18.2 cm/sec. Dist ICA 103.4/31.0 cm/sec. Rt. ICA/CCA = 1.0. Lt. ICA/CCA = 1.4. Prox ECA 75.9/10.7 cm/sec. Prox ECA 59.8/8.8 cm/sec. Rt. Vert. 44.7/13.5 cm/sec. Lt. Vert. 40.0/8.8 cm/sec. Right Extracranial There is intimal thickening but no significant atherosclerotic plaque noted in the right common carotid artery. There is heterogeneous, irregular atherosclerotic plaque noted in the right internal carotid artery. There is intimal thickening but no significant atherosclerotic plaque noted in the right external carotid artery. Antegrade flow is noted in the right vertebral artery. Left Extracranial There is intimal thickening but no significant atherosclerotic plaque noted in the left common carotid artery. There is heterogeneous, irregular atherosclerotic plaque noted in the left internal carotid artery. There is heterogeneous, irregular atherosclerotic plaque noted in the left external carotid artery. Antegrade flow is noted in the left vertebral artery. Procedure Carotid Duplex 10313. This is a Carotid Duplex examination using B-mode, color flow and specral Doppler. The exam was diagnostic. Exam performed in department. VL/Carotid Duplex Ultrasound Interpretation Summary Mild (<50%) stenosis right extracranial internal carotid. Mild (<50%) stenosis left extracranial internal carotid. Flow within the vertebral arteries is antegrade bilaterally. Ordering Physician: Mark Dacosta Referring Physician: Mark Dacosta Performed By: [place] RVT
== END | disposition home or self-care (01) ==
LOC: CVS 13:28
PROVIDERS: PCP Internal Medicine; Referring Provider Internal Medicine Cardiovascular Disease; Visit Provider Internal Medicine Cardiovascular Disease
DX: R09.89 Other specified symptoms and signs involving the circulatory and respiratory systems (principal); E78.5 Hyperlipidemia, unspecified
CPT/HCPCS: 93880

== ENCOUNTER → 2024-02-25 | Outpatient (REF) | payer MEDICARE, MEDICAID, SELFPAY ==
[2024-02-25 08:49] LABS: ALB/GLOB Ratio 0.7 RATIO (0.9-2.4); AST(SGOT) 31 U/L (15-37); Alanine Aminotransfer ALT/SGPT 32 U/L (13-56); Albumin, Serum 2.9 g/dL (3.2-5.0); Alkaline Phosphatase 131 U/L (45-117); Anion Gap 6 (5-15); BUN 21 mg/dL (7-18); BUN/Creat Ratio 18.8 RATIO (10-20); Chloride 114 mmol/L (98-107); Cholesterol 137 mg/dL (200); Creatinine, Serum 1.12 mg/dL (0.55-1.02); EST Glomerular Filtration Rate 50 mL/min (>60); Est Glom Filt Rate - Afr Amer 61 mL/min (>60); Globulin 3.9 g/dL (2.2-4.2); Glucose 105 mg/dL (74-106); High Density Lipoprotein 47 mg/dL; Potassium 4.2 mmol/L (3.5-5.1); Protein, Total 6.8 g/dL (6.4-8.2); Sodium Level 143 mmol/L (136-145); Thyroid Stim Hormone (TSH) 4.19 uIU/mL (0.358-3.74); Triglycerides 151 mg/dL; Very Low Density Lipoprotein 30 mg/dL (5-40)
== END ==
LOC: OLS.SWAL 05:00
PROVIDERS: PCP Internal Medicine; Referring Provider Internal Medicine; Visit Provider Internal Medicine
DX: E11.9 Type 2 diabetes mellitus without complications (principal); I10 Essential (primary) hypertension; E78.5 Hyperlipidemia, unspecified
CPT/HCPCS: 36415; 80053; 80061; 83036; 84443

== ENCOUNTER → 2024-05-25 | Outpatient (REF) | payer MEDICAID, SELFPAY ==
[2024-05-25 08:43] LABS: Hemoglobin A1c 6.1 % (3.8-5.6)
[2024-05-25 08:52] LABS: ALB/GLOB Ratio 0.9 RATIO (0.9-2.4); AST(SGOT) 27 U/L (15-37); Alanine Aminotransfer ALT/SGPT 35 U/L (13-56); Albumin, Serum 3.4 g/dL (3.2-5.0); Alkaline Phosphatase 124 U/L (45-117); Anion Gap 5 (5-15); BUN 24 mg/dL (7-18); BUN/Creat Ratio 23.8 RATIO (10-20); Calcium,Total 9.9 mg/dL (8.5-10.1); Chloride 115 mmol/L (98-107); Cholesterol 166 mg/dL (200); Creatinine, Serum 1.01 mg/dL (0.55-1.02); EST Glomerular Filtration Rate 57 mL/min (>60); Est Glom Filt Rate - Afr Amer 69 mL/min (>60); Globulin 3.8 g/dL (2.2-4.2); Glucose 121 mg/dL (74-106); High Density Lipoprotein 54 mg/dL; Potassium 4.5 mmol/L (3.5-5.1); Protein, Total 7.2 g/dL (6.4-8.2); Sodium Level 141 mmol/L (136-145); Triglycerides 173 mg/dL; Very Low Density Lipoprotein 35 mg/dL (5-40)
== END | disposition home or self-care (01) ==
LOC: OLS.SWAL 05:00
PROVIDERS: PCP Internal Medicine; Visit Provider Internal Medicine
DX: E11.9 Type 2 diabetes mellitus without complications (principal); E78.49 Other hyperlipidemia
CPT/HCPCS: 36415; 80053; 80061; 83036; 84443

== ENCOUNTER → 2024-06-07 | Outpatient (REF) | payer MEDICAID, SELFPAY ==
[2024-06-07 08:45] LABS: Hematocrit 36.7 % (37-47); Hemoglobin 11.2 g/dL (12.0-15.0); Mean Corp Hgb Conc 30.5 g/dL (32-36); Mean Corpuscular Hgb 27.9 pg (27.0-32.0); Mean Corpuscular Volume 91.5 fL (81-99); Mean Platelet Vol. 11.7 fl (6.2-12.0); Platelet Count 169 K/mm3 (150-450); RBC Distribution Width CV 16.1 % (11.6-14.6); RBC Distribution Width SD 54.6 fl (35.1-43.9); Red Blood Count 4.01 M/mm3 (4.2-5.4); White Blood Count 7.1 K/mm3 (4.4-11.0)
== END | disposition home or self-care (01) ==
LOC: OLS.SWAL 04:00
PROVIDERS: PCP Internal Medicine; Referring Provider Internal Medicine; Visit Provider Internal Medicine
DX: E11.9 Type 2 diabetes mellitus without complications (principal); I10 Essential (primary) hypertension
CPT/HCPCS: 36415; 85027

== ENCOUNTER → 2024-07-11 | Outpatient (CLI) | payer MEDICARE, MEDICAID, SELFPAY ==
--- NOTE | 2024-07-11 13:42 | ECHOD_ITS ---
Reason For Study: Valve Replacement Procedure This was a 2D Doppler, Color Flow transthoracic echocardiogram. The study was technically difficult. Best parasternal images taken with patient in the supine position. Exam performed in department. Left Ventricle Mild concentric left ventricular hypertrophy. Normal LV size. The left ventricular ejection fraction is 60 %. Stage 2 diastolic dysfunction. Right Ventricle Mildly dilated right ventricle. Normal systolic function. Atria There is severe biatrial dilatation. ICD or pacer leads identified within the right atrium. Mitral Valve Moderate mitral annular calcification. Mild (1+) mitral valve insufficiency. Tricuspid Valve Mild (1+) tricuspid valve insufficiency. Right ventricular systolic pressure estimated to be 38 mmHg. Aortic Valve Bioprosthetic aortic valve mean peak gradient 33 mmHg. Pulmonic Valve The pulmonic valve is not well visualized. Mild (1+) pulmonic valve insufficiency. Great Vessels Normal sized aortic root. Pericardium/Pleural No pericardial effusion. MMode/2D Measurements & Calculations LVIDd: 4.2 cm IVSd: 1.4 cm LVOT diam: 1.9 cm LVIDs: 3.0 cm LVPWd: 0.94 cm LVOT area: 2.8 cm2 RVDd: 4.4 cm FS: 30.1 % Ao root diam: 3.5 cm LAV(MOD-bp): 62.1 ml LA A4 area: 21.6 cm2 LAV(MOD-bp) Indexed: 30.5 ml/m2 LAV(MOD-sp2): 60.7 ml LAV(MOD-sp4): 62.6 ml LA dimension(2D): 4.0 cm TAPSE: 1.8 cm RA A4 area: 19.0 cm2 Time Measurements MV dec time: 0.19 sec Doppler Measurements & Calculations MV E max dez: 99.5 cm/sec Lat Peak E' Dez: 9.7 cm/sec Med Peak E' Dez: 4.6 cm/sec MV A max dez: 110.3 cm/sec E/E' lat: 10.3 E/E' med: 21.7 MV E/A: 0.90 MV V2 max: 119.9 cm/sec MV P1/2t max dez: 119.9 cm/sec Ao V2 max: 396.7 cm/sec MV max P.7 mmHg MV P1/2t: 68.7 msec Ao max P.1 mmHg MV V2 mean: 65.7 cm/sec MV dec slope: 511.3 cm/sec2 Ao V2 mean: 264.0 cm/sec MV mean P.1 mmHg Ao mean P.0 mmHg MV V2 VTI: 37.7 cm MVA(P1/2t): 3.2 cm2 Ao V2 VTI: 91.0 cm MVA(VTI): 1.5 cm2 AV (velocity ratio): 0.22 SPENCER(I,D): 0.64 cm2 SPENCER(V,D): 0.65 cm2 LV V1 max: 91.9 cm/sec MR max dez: 446.4 cm/sec SV(LVOT): 57.8 ml LV V1 max P.4 mmHg MR max P.7 mmHg LV V1 mean P.8 mmHg LV V1 mean: 62.2 cm/sec LV V1 VTI: 20.5 cm PA V2 max: 83.4 cm/sec TR max dez: 287.8 cm/sec PA V2 mean: 58.3 cm/sec TR max P.1 mmHg ECHO/Echo Complete Interpretation Summary The left ventricular ejection fraction is 60 %. Stage 2 diastolic dysfunction. Mildly dilated right ventricle. Mild (1+) mitral valve insufficiency. Mild (1+) tricuspid valve insufficiency. Right ventricular systolic pressure es timated to be 38 mmHg. Bioprosthetic aortic valve mean peak gradient 33 mmHg. This is increased from 2 3 mmHg gradient noted on study in 06/2023. Moderate aortic valve stenosis. Mild (1+) pulmonic valve insufficiency. Ordering Physician: Mark Dacosta Referring Physician: Mark Dacosta Performed By: Sorin Smith [facility]
== END | disposition home or self-care (01) ==
PROVIDERS: PCP Internal Medicine; Referring Provider Internal Medicine Cardiovascular Disease; Visit Provider Internal Medicine Cardiovascular Disease
DX: Z95.3 Presence of xenogenic heart valve (principal); I35.0 Nonrheumatic aortic (valve) stenosis
CPT/HCPCS: 93306

== ENCOUNTER → 2024-08-25 | Outpatient (REF) | payer MEDICAID, SELFPAY ==
[2024-08-25 08:22] LABS: Absolute Lymphocyte Count 2.14 X10^3/uL (0.83-4.51); Absolute Neutrophil Count 3.9 X10^3/uL (2.0-7.7); Basophil# 0.05 X10^3/uL; Basophil% 0.7 % (0-1); Eosinophil# 0.22 X10^3/uL; Eosinophils% 3.2 % (0-5); Hematocrit 36.9 % (37-47); Hemoglobin 11.3 g/dL (12.0-15.0); Lymphocyte # 2.14 X10^3/ul (0.83-4.51); Lymphocyte % 30.9 % (19-41); Mean Corp Hgb Conc 30.6 g/dL (32-36); Mean Corpuscular Hgb 28.3 pg (27.0-32.0); Mean Corpuscular Volume 92.3 fL (81-99); Mean Platelet Vol. 11.8 fl (6.2-12.0); Monocyte# 0.58 X10^3/uL; Monocyte% 8.4 % (0-10); NRBC Flagged by Analyzer 0 % (0-5); Neutrophil # 3.91 X10^3/uL (2.7-7.7); Neutrophil % 56.4 % (47-70); Platelet Count 166 K/mm3 (150-450); RBC Distribution Width CV 15.5 % (11.6-14.6); RBC Distribution Width SD 52.6 fl (35.1-43.9); White Blood Count 6.9 K/mm3 (4.4-11.0)
[2024-08-25 08:44] LABS: ALB/GLOB Ratio 0.9 RATIO (0.9-2.4); AST(SGOT) 22 U/L (15-37); Alanine Aminotransfer ALT/SGPT 26 U/L (13-56); Alkaline Phosphatase 99 U/L (45-117); Anion Gap 7 (5-15); BUN 19 mg/dL (7-18); BUN/Creat Ratio 19.5 RATIO (10-20); Calcium,Total 9.6 mg/dL (8.5-10.1); Chloride 113 mmol/L (98-107); Cholesterol 144 mg/dL (200); Creatinine, Serum 0.97 mg/dL (0.55-1.02); EST Glomerular Filtration Rate 59 mL/min (>60); Est Glom Filt Rate - Afr Amer 71 mL/min (>60); Globulin 3.4 g/dL (2.2-4.2); Glucose 108 mg/dL (74-106); High Density Lipoprotein 48 mg/dL; Potassium 4.2 mmol/L (3.5-5.1); Protein, Total 6.4 g/dL (6.4-8.2); Sodium Level 142 mmol/L (136-145); Triglycerides 120 mg/dL; Very Low Density Lipoprotein 24 mg/dL (5-40)
== END | disposition home or self-care (01) ==
LOC: OLS.SWAL 05:00
PROVIDERS: PCP Internal Medicine; Visit Provider Internal Medicine
DX: E11.9 Type 2 diabetes mellitus without complications (principal); E78.5 Hyperlipidemia, unspecified; I10 Essential (primary) hypertension
CPT/HCPCS: 36415; 80053; 80061; 83036; 84443; 85025

== ENCOUNTER → 2024-10-21 | Outpatient (CLI) | payer MEDICAID, SELFPAY | END | disposition home or self-care (01) | LOC: PSN 08:13 | PROVIDERS: PCP Internal Medicine; Referring Provider Nurse Practitioner Family; Visit Provider Nurse Practitioner Family | DX: I48.0 Paroxysmal atrial fibrillation (principal); R06.09 Other forms of dyspnea; R00.0 Tachycardia, unspecified | CPT/HCPCS: 93225; 93226 ==

== ENCOUNTER 2024-11-03 10:41 | Emergency (ER) | payer MEDICARE, MEDICAID, SELFPAY ==
[2024-11-03 10:47] VITALS: BP 142/115; PULSE 92; RESP 16; TEMP 36.6; O2SAT 99; BMI 31.5
--- NOTE | 2024-11-03 11:45 | EX.ED.DYSGE1 ---
HPI History of Present Illness Chief Complaint: Palpitations Informant: patient and friend Narrative Narrative: Presents by EMS from home intermittent palpitations short of breath lightheaded symptoms with intermittent dizziness. IV negative history of atrial fibrillation and on Eliquis and sotalol. Her daughter pacemaker is placed to becoming bradycardic followed by . States she has had 4 different episodes Jayashree. Since October she called her PCP had a Holter monitor for 24 hours last week. The reason why denies cough. Denies recent vomiting or diarrhea. They reported there was runs of heart rate going fast was told to monitor. Occasional spinning which has resolved history of vertigo. Prior similar symptoms: Yes [facility] Medical History Dyspnea on exertion Shortness of breath Paroxysmal atrial fibrillation Non-rheumatic aortic stenosis Essential (primary) hypertension Sick sinus syndrome SA node dysfunction Diabetes mellitus, type II HLD (hyperlipidemia) Asthma GERD (gastroesophageal reflux disease) Carpal tunnel syndrome Pneumonia Lichen planus Type 2 diabetes mellitus GERD (gastroesophageal reflux disease) Cough Asthma, moderate persistent Asthma with acute exacerbation Seasonal allergies Bradycardia Home Medications ?Medication ?Instructions ?Recorded ?Last Taken ?Type pravastatin 40 mg tablet 40 mg PO QHS CHOLESTEROL 09/06/16 01/13/19 History clobetasol 0.025 % topical cream 1 applic topical DAILY 07/02/21 Unknown History estradiol 0.01% (0.1 mg/gram) 1 applic vaginal .COMPLEX 07/02/21 Unknown History vaginal cream fluticasone furoate 200 1 inh inhalation DAILY #60 ea 08/12/21 Unknown Rx mcg-vilanterol 25 mcg/dose inhalation powder (Breo Ellipta) sotalol 80 mg tablet 80 mg PO BID HEART #180 tabs 01/06/22 Unknown Rx acetaminophen 500 mg capsule 500 mg PO Q6H PRN fever or pain 03/27/22 Unknown History famotidine 40 mg tablet 40 mg PO DAILY 03/27/22 Unknown History nystatin 100,000 unit/gram topical 1 applic topical TID 03/27/22 Unknown History powder sennosides 8.6 mg tablet (Senokot) 8.6 mg PO DAILY 03/27/22 Unknown History glipizide 2.5 mg tablet, extended 2.5 mg PO DAILY 09/26/22 Unknown History release 24 hr loratadine 10 mg tablet (Claritin) 10 mg PO DAILY 09/26/22 Unknown History apixaban 5 mg tablet (Eliquis) 5 mg PO BID #60 tabs 12/10/22 Unknown Rx albuterol sulfate 90 mcg/actuation 2 puff inhalation Q6H PRN 12/02/23 Unknown History aerosol inhaler shortness of breath or wheezing cholecalciferol (vitamin D3) 50 50 mcg PO DAILY 12/02/23 Unknown History mcg (2,000 unit) tablet fluticasone furoate 200 1 inh inhalation DAILY 12/02/23 Unknown History mcg-vilanterol 25 mcg/dose inhalation powder magnesium hydroxide 400 mg/5 mL 30 ml PO DAILY PRN constipation 12/02/23 Unknown History oral suspension (Milk of Magnesia) meclizine 25 mg tablet 25 mg PO Q6H PRN Dizziness 12/02/23 Unknown History tizanidine 2 mg tablet 2 mg PO BID PRN muscle spasticity 12/02/23 Unknown History aluminum-magnesium hydroxide 225 30 ml PO Q4H PRN PRN gi distress 06/16/24 Unknown History mg-200 mg/5 mL oral suspension guaifenesin 100 mg/5 mL oral 200 mg PO Q6H PRN cough 11/03/24 Unknown History liquid (Adult Tussin Chest Congestion) lisinopril 20 mg tablet 20 mg PO BID 11/03/24 Unknown History loperamide 2 mg capsule See Rx Instructions PO .COMPLEX 11/03/24 Unknown History (Anti-Diarrheal (loperamide)) PRN loose stool metoprolol tartrate 25 mg tablet 25 mg PO BID 11/03/24 Unknown History Allergy/AdvReac Type Severity Reaction Status Date / Time Penicillins Allergy Shortness Verified 06/16/24 13:49 of breath Family History Mother Diabetes Aunt Breast cancer Father Cancer Surgical History History of aortic valve replacement with bioprosthetic valve (~01/25/13) Presence of permanent cardiac pacemaker (01/07/19) H/O aortic valve replacement Hx of cataract extraction H/O aortic valve replacement S/P surgical removal of pilonidal cyst History of tonsillectomy Social History Smoking Status: Never smoker alcohol intake: never substance use type: does not use caffeine: Yes (Occasionally) Type: carbonated beverages and tea ROS ROS ED Constitutional Constitutional ED: Denies chills, fever(s) or sweats ENT ENT ED: Denies sore throat Cardiovascular Cardiovascular: Reports palpitations and racing heartbeat; Denies chest pain or leg edema Respiratory/Chest Respiratory/Chest: Reports dyspnea; Denies cough or dyspnea on exertion Gastrointestinal Gastrointestinal: Denies abdominal pain, diarrhea, nausea or vomiting Genitourinary Genitourinary ED: Denies dysuria, hematuria or urinary frequency Musculoskeletal Musculoskeletal: Denies back pain, extremity pain or neck pain Integumentary Denies rash or wounds Neurologic Neurologic: Denies headache(s), paresthesias or weakness EXAM Physical Exam Const Vital Signs: 11/03/24 10:47 11/03/24 10:51 11/03/24 12:41 Temperature 97.9 F Temperature Source Oral Pulse Rate 92 143 H Respiratory Rate 16 14 Respiratory Effort Short of Breath Blood Pressure 142/115 H 132/97 H Blood Pressure Mean 124 108 Pulse Ox 99 97 Oxygen Delivery Method Room Air Room Air 11/03/24 14:00 11/03/24 15:34 Temperature 98.1 F Temperature Source Pulse Rate 105 H 96 Respiratory Rate 14 16 Respiratory Effort Blood Pressure 152/95 H 142/86 H Blood Pressure Mean 114 104 Pulse Ox 98 99 Oxygen Delivery Method Room Air Positive well nourished and well developed General Appearance ED: well developed and NAD HEENT Reports moist mucous membranes normocephalic and atraumatic Eyes General Eye ED: Yes normal appearance of both eyes Neck full ROM Chest Wall Chest: Negative for tenderness Resp normal respiratory effort and normal air movement Effort and Inspection: symmetric chest movement; Negative for respiratory distress Cardio regular rate, regular rhythm and no murmurs Peripheral Pulses: pulses 2+ throughout GI normal to inspection, nondistended, normoactive bowel sounds and non-tender Palpation: Negative for guarding or rebound tenderness present Extremity normal to inspection General Extremety ED: Negative for edema or tenderness General Extremity: Negative for edema Neuro oriented x3 and no sensory deficits noted Neuro Narrative: No focal deficits Sensorium / Orientation: awake and alert Skin no rashes or lesions noted and no wounds MDM MDM MDM Narrative Medical decision making narrative: Interventions / MDM: Differential diagnosis: Atrial flutter/fibrillation, palpitations, chronic anticoagulation medicine Diagnosis considered but do not suspect: N/A My EKG interpretation: Paced rhythm rate of 62 PVCs noted. Imaging independently reviewed and interpreted by myself: 1 view chest x-ray: No acute process. Pacemaker wires in appropriate addition. External documents reviewed: N/A Test considered but not ordered:N/A ED course: Patient pacemaker intermittent palpitations during evaluation on the monitor heart rate jumped to the 130s and resolved. A-fib history suspect paroxysmal A-fib. She is on Eliquis and sotalol. She also metoprolol 25 mg twice daily. Will check labs chest x-ray. Will have her [employer] pacemaker interrogated. 1310: Heart rate in the 140s. Regular on the monitor. Likely a flutter concerns. Further discussion with daughter and patient yesterday they called cardiology office for which she follows Dr. Dacosta reports sotalol was stopped and started on metoprolol 25 mg. Nursing called to confirm this 25 mg was given this morning. With her RVR, will start IV Lopressor. 1328: Per nursing after 2 doses IV Lopressor, heart rate in the 90s. Clinically feels better. 1445: Interrogation evaluated from December 10, 2023 up till November 03, 2024 did not report any dysrhythmias. In the system she had a Holter monitor October 21, 2024 reporting paroxysmal A-fib. She has had runs of flutter in the emergency department and on reevaluation appears to be atrial fibrillation heart rate from 90s to 110s. With these heart rates she is not having symptoms. She has more clinical symptoms with 130s and 140s. I discussed with on-call used car sales manager Dr. Blanc, discussed her changes yesterday, he would like her back on sotalol for which she is on 80 twice a day. This was ordered in the ED. She will continue her home medications including her Eliquis. She will follow-up with her used car sales manager. Re-evaluation: stable Disposition discussed with patient/family/significant other: Patient and daughter Case discussed with consulting clinician: Cardiology This note was generated with ITCation software. It may contain incorrect words, spelling, and punctuation that were not noted in checking the note before signing. Lab Data Attestation: I reviewed the patient's lab results. Labs: Laboratory Results - last 24 hr 11/03/24 12:01 WBC 8.5 RBC 4.05 L Hgb 11.8 L Hct 37.3 MCV 92.1 MCH 29.1 MCHC 31.6 L RDW Std Deviation 55.5 H RDW Coeff of Yunior 16.5 H Plt Count 154 MPV 11.3 Immature Gran % (Auto) 0.400 Neut % (Auto) 64.7 Lymph % (Auto) 22.4 [place] % (Auto) 10.1 H Eos % (Auto) 1.9 Baso % (Auto) 0.5 Absolute Neuts (auto) 5.5 Absolute Lymphs (auto) 1.90 Nucleated RBC % 0 Sodium 141 Potassium 4.6 Chloride 111 H Carbon Dioxide 18.6 L Anion Gap 12 BUN 21 H Creatinine 0.98 Estim Creat Clear Calc 58.58 Est GFR (MDRD) Non-Af 60 BUN/Creatinine Ratio 21.5 H Glucose 91 Calcium 10.4 Magnesium 2.2 Radiography Diagnostic Testing: Clinical Impression(s) from Imaging Studies Chest X-Ray 11/03/24 12:15 IMPRESSION: No Acute Findings. Reading Location: [facility]- Discharge Plan Triage Chief Complaint: Palpitations ED Provider: Jani Hale Dx/Rx/DC Orders Clinical Impression: Atrial fibrillation and flutter, Palpitations Instructions: ED AFIB Prescriptions: No Action meclizine 25 mg tablet 25 mg PO Q6H PRN (Reason: Dizziness) famotidine 40 mg tablet 40 mg PO DAILY sennosides [Senokot] 8.6 mg tablet 8.6 mg PO DAILY nystatin 100,000 unit/gram powder 1 applic topical TID acetaminophen 500 mg capsule 500 mg PO Q6H PRN (Reason: fever or pain) magnesium hydroxide [Milk of Magnesia] 400 mg/5 mL suspension 30 ml PO DAILY PRN (Reason: constipation) loratadine [Claritin] 10 mg tablet 10 mg PO DAILY glipizide 2.5 mg tablet extended release 24hr 2.5 mg PO DAILY fluticasone furoate-vilanterol 200-25 mcg/dose blister with device 1 inh inhalation DAILY albuterol sulfate 90 mcg/actuation HFA aerosol inhaler 2 puff INHALATION Q6H PRN (Reason: shortness of breath or wheezing) cholecalciferol (vitamin D3) 50 mcg (2,000 unit) tablet 50 mcg PO DAILY tizanidine 2 mg tablet 2 mg PO BID PRN (Reason: muscle spasticity) aluminum-magnesium hydroxide 225-200 mg/5 mL suspension 30 ml PO Q4H PRN PRN (Reason: gi distress) pravastatin 40 MG tablet 40 mg PO QHS estradiol 0.01 % (0.1 mg/gram) cream 1 applic VAGINAL .COMPLEX Rx Instructions: APPLY TO AFFECTED AREA ONCE DAILY FOR 2 WEEKS THEN TWICE WEEKL clobetasol 0.025 % Cream 1 applic TOPICAL DAILY guaifenesin [Adult Tussin Chest Congestion] 100 mg/5 mL liquid 200 mg PO Q6H PRN (Reason: cough) loperamide [Anti-Diarrheal (loperamide)] 2 mg capsule See Rx Instructions PO .COMPLEX PRN (Reason: loose stool) Rx Instructions: 2 TABS WITH FIRST LOOSE STOOL THEN 1 TAB WITH EACH LOOSE STOOL AFTER lisinopril 20 mg tablet 20 mg PO BID metoprolol tartrate 25 mg tablet 25 mg PO BID Breo Ellipta 200-25 mcg/dose blister with device 1 inh INHALATION DAILY Qty: 60 6RF sotalol 80 mg tablet 80 mg PO BID Qty: 180 3RF Eliquis 5 mg tablet 5 mg PO BID Qty: 60 11RF Primary Care Provider: Angela Manjarrez Referrals: Mark Dacosta MD [Med Staff - Active Staff] - 5-7 Days Angela Manjarrez MD [Primary Care Provider] - Activity Restrictions/Additional Instructions: Transient runs a flutter to A-fib in the emergency department. Labs are stable. Discussed with cardiology Dr. Blanc, would like you back on your sotalol twice a day. Continue metoprolol same dose at this time. Follow-up with Dr. Dacosta. Print Language: Ghanaian Disposition Disposition: Home, Self Care Discharge Date/Time: 11/03/24 15:35
--- NOTE | 2024-11-03 12:11 | EKG12_ITS ---
Test Reason : AFIB/SOB Blood Pressure : */* mmHG Vent. Rate : 62 BPM Atrial Rate : 62 BPM P-R Int : 290 ms QRS Dur : 158 ms QT Int : 438 ms P-R-T Axes : 27 -28 128 degrees QTcB Int : 444 ms Atrial-paced rhythm with prolonged AV conduction Left bundle branch block Abnormal ECG Confirmed by ODETTE RASCON, BENTLEY ([id number]), editorial manager SALOMÓN KAUFMAN ([id number]) on 11/04/2024 9:34:47 AM Referred By: Confirmed By: BENTLEY PINO MD
[2024-11-03 12:14] LABS: Absolute Neutrophil Count 5.5 X10^3/uL (2.0-7.7); Basophil# 0.04 X10^3/uL; Basophil% 0.5 % (0-1); Eosinophil# 0.16 X10^3/uL; Eosinophils% 1.9 % (0-5); Hematocrit 37.3 % (37-47); Hemoglobin 11.8 g/dL (12.0-15.0); Lymphocyte % 22.4 % (19-41); Mean Corp Hgb Conc 31.6 g/dL (32-36); Mean Corpuscular Hgb 29.1 pg (27.0-32.0); Mean Corpuscular Volume 92.1 fL (81-99); Mean Platelet Vol. 11.3 fl (6.2-12.0); Monocyte# 0.86 X10^3/uL; Monocyte% 10.1 % (0-10); NRBC Flagged by Analyzer 0 % (0-5); Neutrophil # 5.51 X10^3/uL (2.7-7.7); Neutrophil % 64.7 % (47-70); Platelet Count 154 K/mm3 (150-450); RBC Distribution Width CV 16.5 % (11.6-14.6); RBC Distribution Width SD 55.5 fl (35.1-43.9); Red Blood Count 4.05 M/mm3 (4.2-5.4); White Blood Count 8.5 K/mm3 (4.4-11.0)
--- NOTE | 2024-11-03 12:15 | RAD_ITS ---
PROCEDURE: CHEST 1 VIEW (PORTABLE) 11/03/2024 REASON FOR EXAM: PALPI History of atrial fibrillation. TECHNIQUE: Frontal view of the chest. COMPARISON: None FINDINGS: Hardware: EKG electrodes. Left-sided dual-chamber pacemaker. Midline sternotomy. Heart: The heart size is normal. Lungs: The lungs are clear. Bones: Degenerative changes are identified within the thoracic spine. Other: RAD/Chest 1 View (Portable) IMPRESSION: No Acute Findings. Reading Location: [place] [id number]
[2024-11-03 12:41] VITALS: BP 132/97; PULSE 143; RESP 14; O2SAT 97
[2024-11-03 12:55] LABS: Magnesium 2.2 mg/dL (1.5-2.2)
[2024-11-03] MEDS: Metoprolol Tartrate 5 MG/5 ML Vial IV ×2 (13:18→13:23)
[2024-11-03 13:34] LABS: Anion Gap 12 (5-15); BUN 21 mg/dL (4-19); BUN/Creat Ratio 21.5 RATIO (10-20); Calcium,Total 10.4 mg/dL (7.6-11.0); Carbon Dioxide 18.6 mmol/L (21.0-32.0); Chloride 111 mmol/L (98-108); Creatinine, Serum 0.98 mg/dL (0.70-1.20); EST Glomerular Filtration Rate 60 (>60); Estimated Creatinine Clearance 58.58 ml/min (50-250); Glucose 91 mg/dL (70-99); Potassium 4.6 mmol/L (3.3-5.1); Sodium Level 141 mmol/L (133-145)
[2024-11-03 14:00] VITALS: BP 152/95; PULSE 105; RESP 14; O2SAT 98
--- NOTE | 2024-11-03 14:57 | ED.RN ---
this rn calls veronica colbert and informs nurse of the medication change per cardiology. dr Hale requested the nurse be notified via phone. this rn gives instruction to take 80 mg Sotalol PO BID per the verbal order of Dr. Blanc. pt is also instructed to follow up with Dr. Dacosta outpatient. nurse verbalizes understanding
[2024-11-03] MEDS: Sotalol Hydrochloride 80 MG Tablet PO (15:33)
[2024-11-03 15:34] VITALS: BP 142/86; PULSE 96; RESP 16; TEMP 36.7; O2SAT 99
== END 2024-11-03 15:35 | disposition home or self-care (01) ==
PROVIDERS: Emergency Provider Emergency Medicine; PCP Internal Medicine; Visit Provider Emergency Medicine
DX: R00.2 Palpitations (principal); I48.0 Paroxysmal atrial fibrillation; E11.9 Type 2 diabetes mellitus without complications; Z79.01 Long term (current) use of anticoagulants; E78.5 Hyperlipidemia, unspecified; Z79.899 Other long term (current) drug therapy; Z79.51 Long term (current) use of inhaled steroids; Z79.84 Long term (current) use of oral hypoglycemic drugs; J45.909 Unspecified asthma, uncomplicated
CPT/HCPCS: 71045; 80048; 83735; 85025; 93005; 99285; A4216

== ENCOUNTER → 2024-11-25 | Outpatient (REF) | payer MEDICAID, SELFPAY ==
[2024-11-25 08:31] LABS: Absolute Lymphocyte Count 1.98 X10^3/uL (0.83-4.51); Absolute Neutrophil Count 4.6 X10^3/uL (2.0-7.7); Basophil# 0.07 X10^3/uL; Basophil% 0.9 % (0-1); Eosinophil# 0.18 X10^3/uL; Eosinophils% 2.3 % (0-5); Hematocrit 34.5 % (37-47); Hemoglobin 10.8 g/dL (12.0-15.0); Lymphocyte # 1.98 X10^3/ul (0.83-4.51); Lymphocyte % 25.7 % (19-41); Mean Corp Hgb Conc 31.3 g/dL (32-36); Mean Corpuscular Hgb 29.1 pg (27.0-32.0); Mean Platelet Vol. 11.8 fl (6.2-12.0); Monocyte# 0.87 X10^3/uL; Monocyte% 11.3 % (0-10); NRBC Flagged by Analyzer 0 % (0-5); Neutrophil # 4.59 X10^3/uL (2.7-7.7); Neutrophil % 59.5 % (47-70); Platelet Count 175 K/mm3 (150-450); RBC Distribution Width SD 54.9 fl (35.1-43.9); Red Blood Count 3.71 M/mm3 (4.2-5.4); White Blood Count 7.7 K/mm3 (4.4-11.0)
[2024-11-25 09:06] LABS: Hemoglobin A1c 6.2 % (<=5.6)
[2024-11-25 09:11] LABS: ALB/GLOB Ratio 1.4 RATIO (0.9-2.4); AST(SGOT) 25 U/L (<=31); Alanine Aminotransfer ALT/SGPT 20 U/L (<=34); Albumin, Serum 3.5 g/dL (3.4-4.8); Alkaline Phosphatase 93 U/L (35-104); Anion Gap 11 (5-15); BUN 20 mg/dL (4-19); BUN/Creat Ratio 22.1 RATIO (10-20); Calcium,Total 9.3 mg/dL (7.6-11.0); Carbon Dioxide 20.3 mmol/L (21.0-32.0); Chloride 112 mmol/L (98-108); Cholesterol 141 mg/dL (<=200); Creatinine, Serum 0.91 mg/dL (0.70-1.20); EST Glomerular Filtration Rate 65 (>60); Globulin 2.5 g/dL (2.2-4.2); Glucose 106 mg/dL (70-99); High Density Lipoprotein 40 mg/dL; Low Density Lipoprotein Calc. 75 mg/dL; Potassium 4.3 mmol/L (3.3-5.1); Protein, Total 5.9 g/dL (5.9-8.4); Sodium Level 144 mmol/L (133-145); Total Bilirubin 0.33 mg/dL (0.00-1.30); Triglycerides 130 mg/dL; Very Low Density Lipoprotein 26 mg/dL (5-40); cholesterol:hdl ratio screen 3.55
== END | disposition home or self-care (01) ==
LOC: OLS.SWAL 05:00
PROVIDERS: PCP Internal Medicine; Visit Provider Internal Medicine
DX: E11.9 Type 2 diabetes mellitus without complications (principal); I10 Essential (primary) hypertension; E78.49 Other hyperlipidemia
CPT/HCPCS: 36415; 80053; 80061; 83036; 84443; 85025

== ENCOUNTER → 2025-02-24 05:00 | Outpatient (REF) | payer MEDICAID, SELFPAY ==
--- OUTSIDE RECORDS SUMMARY | 2025-02-24 05:04 | XMS RPT_ITS | CCD ---
Author Organization [facility] Care Team Providers Care Customs Manager Name Role Phone MARBELLA HOLLINS Unavailable Unavailable PHYSICIAN, NONE Unavailable Unavailable Davon Calzada MD Primary Care Provider Dr. Davon Calzada Primary Care Provider Dr. Ori Torres Attending Provider Dr. Ori Torres Referring Provider Dr. Davon Calzada Referring Provider Mandeep HOFFMAN, CIPHER EXPERT-C Blanca Attending Provider Davon Calzada MD Primary Care Provider Dr. Ori Torres Attending Provider Suzanna Bateman Attending Provider Unavailable Mandeep CIPHER EXPERT, CIPHER EXPERT-C Blanca Attending Provider Davon Calzada MD Primary Care Provider Mandeep HOFFMAN, CIPHER EXPERT-C Blanca Attending Provider Dr. Angela Manjarrez Primary Care Provider UnavailDr. Angela Lopez Referring Provider Unavailable Mandeep HOFFMAN, CIPHER EXPERT-C Blanca Attending Provider Dr. Angela Manjarrez Primary Care Provider Unavaila Dr. Angela Palomino Referring Provider Unavailable Dr. Mark Dacosta Attending Provider Dr. Rubio Blanc Attending Provider Dr. Angela Manjarrez Primary Care Provider Unavailshira Kaufman CIPHER EXPERT, CIPHER EXPERT-C Blanca Attending Provider Unavailable Primary Care Provider Unavailabl e Unavailable Primary Care Provider Unavailcaridad Manjarrez MD, Dr. Miller Primary Care Provider Unava marshall Dacosta MD, Dr. Flores Attending Provider Praneeth RASCON, Dr. Flores Referring Provider [phone] Dr. Angela Manjarrez MD Attending Provider Unavailshira Blanc MD, Dr. Bergeron Attending Provider [phone] [facility] CIPHER EXPERT-C, Marbella Attending Provider Roof CIPHER EXPERT-C, Marbella H Referring Provider Dr. Jani Hale DO Emergency Provider TESTRAZAHRA REBOLLAR Attending Unavailable TESTRAKE, ZAHRA Referring Unavailable TESTRAKE, ZAHRA Referring Unavailable TESTRAJOANNE, ZAHRA Attending Unavailable SELF Referring Unavailable ZAHRA VAZQUEZ Attending Unavailable Josseline RASCON, Dr. Miller Primary Care Provider Unava Dr. Jani Pineda Attending Provider [phone] Dr. Angela Manjarrez MD Referring Provider Unavailshira Kaufman CIPHER EXPERT-C, Blanca Attending Provider Dr. Angela Manjarrez MD Primary Care Provider Unava marshall Blanc MD, Dr. Bergeron Attending Provider [phone] Dr. Angela Manjarrez MD Attending Provider UnavailJani Medina Attending Unavailable Gudla, Angela Primary Care Unavailable Gudla Angela NORRIS Attending Unavailable Gudla Angela NORRIS Referring Unavailable Gudla, Angela Primary Care Unavailable Gudla Angela NORRIS Attending Unavailable Gudla, Angela Primary Care Unavailable Gudla, Angela Primary Care Unavailable Rubio Blanc Attending Unavailable Roof CIPHER EXPERT, Marbella H Referring Unavailable Mark Dacosta Attending Unavailable Gudla, Angela Primary Care Unavailable Gudla, Angela Referring Unavailable Rubio Blanc Attending Unavailable Gudla, Angela Primary Care Unavailable Gudla Angela NORRIS Attending Unavailable Gudla, Angela Primary Care Unavailable Gudla Angela NORRIS Attending Unavailable Gudla OLSGurpreetAngela Referring Unavailable Gudla, Angela Primary Care Unavailable Gudla, Angela Primary Care Unavailable Gudla MYRNA Angela Attending Unavailable Gudla, Angela Primary Care Unavailable PraneethMark easton Attending Unavailable PraneethMark easton Referring Unavailable Gudla, Angela Primary Care Unavailable Roof CIPHER EXPERT, Marbella Head Attending Unavailable Patricia CIPHER EXPERT, Marbella Head Referring Unavailable Gudla, Angela Primary Care Unavailable PraneethMark easton Attending Unavailable Gudla, Angela Primary Care Unavailable Jayashree, [place] Attending Unavailable Mandeep CIPHER EXPERT, Blanca Attending Unavailable Gudla, Angela Referring Unavailable Gudla, Angela Primary Care Unavailable Gudla, Angela Primary Care Unavailable JayashreeRui valleril Attending Unavailable Allergies Allergy Classification Reported Allergen(s) Allergy Type Date of Onset Reaction(s) Facility (15 sources) Penicillins; Translations: [PENICILLINS] Propensity to adverse reactions 6 Other: See Comments [facility] Work Phone: (20 sources) Seasonal allergy; Translations: [SEASONAL ALLERGIES] Propensity to adverse reactions 4 Intolerance [facility] Work Phone: (9 sources) Penicillins Propensity to adverse reactions to drug 6 Other: See Comments [facility] Work Phone: (17 sources) Penicillins Allergy to substance 2 Shortness of breath [facility] (1 source) Penicillins Drug allergy (disorder) 5 [facility] Repository Medications Current Medications Medication Drug Class(es) Dates Sig (Normalized) Sig (Original) acetaminophen 500 mg oral capsule (20 sources) Start: 03-27-2022 take 1 capsule by mouth every six hours as needed for pain Acetaminophen 500 mg capsule Active 500 mg PO EVERY 6 HOURS as needed for fever or pain March 27, 2022 12:00am Start: 01-21-2022 End: 02-20-2022 take 2 tablets by mouth every six hours as needed acetaminophen (TYLENOL EXTRA STRENGTH) 500 mg tablet Take 2 tablets by mouth every 6 hours as needed for pain. 56 tablet 2 01/21/2022 02/20/2022 Active take 1 tablet by joan every eight hours as needed acetaminophen (TYLENOL EXTRA STRENGTH) 500 mg tablet Take 500 mg by mouth every 8 hours as needed. Active Comment on above: Take 2 tablets by mo [facility] every 6 hours as needed for pain. [id number] 200 actuat albuterol 0.09 mg/actuat metered dose inhaler (20 sources) beta2-Adrenergic Agonist Start: 12-02-2023 Albuterol Sulfate 90 mcg/actuation HFA aerosol inhaler Active 2 NMA INHALATION EVERY 6 HOURS as needed for shortness of breath or wheezing December 02, 2023 2:02pm Start: 06-09-2019 End: 12-02-2023 Albuterol Sulfate 90 mcg/act uation HFA aerosol inhaler Discontinued 2 NMA INHALATION Q4H as needed for shortness of breath or wheezing August 08, 2021 9:59am December 02, 2023 2:05pm Start: 06-09-2019 End: 08-08-2021 take 1 puff(s) by inhalation every four hours Albuterol Sulfate Discontinued 2 PUFF INHALATION Q4H December 14, 2019 1:57pm February 15, 2021 9:21am Start: 07-01-2018 take 2 puff(s) by in halation every six hours as needed for wheezing albuterol HFA (PROVENTIL HFA) 90 mcg/actuation inhaler Inhale 2 Puffs as instructed every 6 hours as needed for Wheezing/Shortness of Breath. 07/01/2018 Active Start: 07-01-2018 End: 03-21-2019 Albuterol Sulfate (Proair Hf a) 90 mcg/actuation HFA aerosol inhaler Discontinued 2 NMA INHALATION EVERY 6 HOURS as needed for shortness of breath or wheezing July 01, 2018 12:46pm March 21, 2019 8:27am Start: 07-01-2018 End: 03-21-2019 take 1 puff(s) by inhalation every six hours Albuterol Sulfate (Proair Hfa) 90 mcg/actuation HFA aerosol inhaler Discontinued 2 PUFF INHALATION EVERY 6 HOURS July 01, 2018 11:46am March 21, 2019 7:27am Start: 03-24-2018 End: 07-01-2018 Albuterol Sulfate (Proair Hf a) 90 mcg/actuation HFA aerosol inhaler Discontinued 2 NMA INHALATION EVERY 6 HOURS as needed for shortness of breath or wheezing March 24, 2018 9:39am July 01, 2018 12:46pm Start: 03-24-2018 End: 07-01-2018 take 1 puff(s) by inhalation every six hours Albuterol Sulfate (Proair Hfa) 90 mcg/actuation HFA aerosol inhaler Discontinued 2 PUFF INHALATION EVERY 6 HOURS March 24, 2018 8:39am July 01, 2018 11:46am Start: 12-01-2017 End: 03-24-2018 Albuterol Sulfate (Proair Hf a) 90 mcg/actuation HFA aerosol inhaler Discontinued 2 NMA INHALATION EVERY 6 HOURS as needed December 01, 2017 12:00am March 24, 2018 9:40am Start: 12-01-2017 End: 03-24-2018 take 1 puff(s) by inhalation every six hours Albuterol Sulfate (Proair Hfa) 90 mcg/actuation HFA aerosol inhaler Discontinued 2 PUFF INHALATION EVERY 6 HOURS November 30, 2017 11:00pm March 24, 2018 8:40am Comment on above: Inhale 2 Puffs as in structed every 6 hours as needed for Wheezing/Shortness of Breath. Aluminum-Magnesium Hydroxide 225-200 mg/5 mL suspension (5 sources) Start: 06-16-20 take 1 mL by mouth every four hours as needed Aluminum-Magnesium Hydroxide 225-200 mg/5 mL suspension Active 30 mL PO EVERY 4 HOURS NEEDED as needed for gi distress June 16, 2024 1:00am Start: 06-16-2024 take 1 mL by mouth e very four hours as needed Aluminum-Magnesium Hydroxide 225-200 mg/5 mL suspension Active mL PO EVERY 4 HOURS NEEDED as needed June 16, 2024 1:00am apixaban 5 mg oral tablet (14 sources) Factor Xa Inhibitor Start: 12-10-2022 take 1 tablet by mouth twice daily Apixaban (Eliquis) 5 mg tablet Active 5 mg PO TWICE A DAY 60 December 10, 2022 12:00am Blood Pressure Monitor kit (20 sources) Start: 06-28-2019 Blood Pressure Monitor kit Indications: Essential hypertension Use to monitor blood pressure as directed. 1 Kit 06/28/2019 Active Start: 06-28-2019 Blood Pressure Monitor kit Indications: Essential hypertension Use to monitor blood pressure as directed. 1 Kit 0 06/28/2019 Active Comment on above: Use to monitor blood pressure as directed. cephalexin 500 mg oral capsule (2 sources) Cephalosporin Antibacterial Start: End: take 1 capsule by mouth four times daily cephALEXin (KEFLEX) 500 mg capsule Take 1 capsule by mouth four times daily for 10 days. 40 capsule 0 12/10/2021 12/20/2021 Active Comment on above: Take 1 capsule by [facility] four times daily for 10 days. cholecalciferol 0.05 mg oral tablet (20 sources) Vitamin D Start: take 1 tablet by mouth once daily Cholecalciferol (Vitamin D3) 50 mcg (2,000 unit) tablet Active 50 ug PO DAILY December 02, 2023 12:00am Start: 03-27-2022 End: 12-02-2023 take 1 capsule by mouth once daily Cholecalciferol (Vitamin D3) 125 mcg (5,000 unit) capsule Discontinued 125 ug PO DAILY March 27, 2022 12:00am December 02, 2023 2:03pm Start: 01-05-2019 End: 03-27-2022 take 1 capsule by mouth once daily Cholecalciferol (Vitamin D3) 2,000 UNIT capsule Discontinued 2000 U PO DAILY January 05, 2019 12:00am March 27, 2022 10:06am Comment on above: Take 1 capsule by [facility] once daily. Clobetasol (20 sources) Corticosteroid Start: 07-02-2021 Clobetasol 0.025 % Cream Active 1 NMA TOPICAL DAILY July 02, 2021 1:00am Start: 07-02-2021 Clobetasol 0.0 25 % Cream Active 1 NMA TOPICAL DAILY July 02, 2021 1:00am Start: 11-14-2020 clobetasol (TE MOVATE) 0.05 % ointment Indications: Lichen planus , Vulvar pruritus Apply 1 application to affected area daily at bedtime. TO AFFECTED AREA for 4 weeks. 60 g 1 11/14/2020 Active Comment on above: Apply 1 application to affected area daily at bedtime. TO AFFECTED AREA for 4 weeks. estradiol 0.1 mg/ml vaginal cream (20 sources) Estrogen Start: 12-05-2021 End: 12-05-2023 estradiol (ESTRACE) 0.01 % (0.1 mg/gram) vaginal cream Indications: Labia minora agglutination Use 1 g vaginally two times a week, THEN 1 g two times a week. Apply to affected area daily for 2 weeks then twice weekly.. 42.5 g 2 12/05/2021 Active Start: 07-02-2021 Estradiol 0.01 % (0.1 mg/gram) cream Active 1 NMA VAGINAL .COMPLEX July 02, 2021 1:00am APPLY TO AFFECTED AREA ONCE DAILY FOR 2 WEEKS THEN TWICE WEEKL Start: 07-02-2021 Estradiol 0.01 % (0.1 mg/gram) cream Active 1 NMA VAGINAL July 02, 2021 1:00am Start: 07-02-2021 Estradiol Acti ve 1 APPLIC VAGINAL July 02, 2021 12:00am Start: 11-14-2020 End: 12-05-2021 estradiol (ESTRACE) 0.01 % ( 0.1 mg/gram) vaginal cream Indications: Vulvar pruritus , Labia minora agglutination Apply to affected area daily for 2 weeks then twice weekly. 42.5 g 1 11/14/2020 12/05/2021 Discontinued Comment on above: Apply to affected ar ea daily for 2 weeks then twice weekly. Use 1 g vaginally tw o times a week, THEN 1 g two times a week. Apply to affected area daily for 2 weeks then twice weekly.. Estradiol / Estriol (15 sources) Estrogen Start: 2 estradiol 0.01% estriol 0.01% topical cream (CPD) Indications: Vaginal atrophy Apply 1 gram (4 clicks) vaginally twice weekly 30 g 2 12/25/2021 Active Comment on above: Apply 1 gram (4 clic ks) vaginally twice weekly famotidine 40 mg oral tablet (20 sources) Histamine-2 Receptor Antagonist Start: 2 take 1 tablet by mouth once daily Famotidine 40 mg tablet Active 40 mg PO DAILY March 27, 2022 12:00am Comment on above: Take 1 tablet by joan th once daily. fluconazole 150 mg oral tablet (2 sources) Azole Antifungal Start: 2 End: 2 take 1 tablet by mouth once fluconazole (DIFLUCAN) 150 mg tablet Indications: Dermatitis of vulva Take 1 tablet by mouth one time only for 1 dose. 1 tablet 0 12/05/2021 12/05/2021 Active Comment on above: Take 1 tablet by joan th one time only for 1 dose. Fluticasone Furoate-Vilanterol (20 sources) Corticosteroid, beta2-Adrenergic Agonist Start: Fluticasone Furoate-Vilanterol (Breo Ellipta) 200-25 mcg/dose blister with device Active 1 NMA INHALATION DAILY 60 August 12, 2021 1:26pm Start: 08-12-2021 Fluticasone Fu roate-Vilanterol (Breo Ellipta) 200-25 mcg/dose blister with device Active 1 INH INHALATION DAILY 60 August 12, 2021 12:26pm Start: 08-12-2021 Fluticasone Fu roate-Vilanterol (Breo Ellipta) 200-25 mcg/dose blister with device Active 1 INH INHALATION DAILY August 12, 2021 1:26pm Start: 07-02-2021 End: 08-12-2021 Fluticasone Furoate-Vilanter ol (Breo Ellipta) 200-25 mcg/dose blister with device Discontinued 1 NMA INHALATION DAILY July 02, 2021 1:00am August 12, 2021 1:27pm Start: 07-02-2021 End: 08-12-2021 Fluticasone Furoate-Vilanter ol (Breo Ellipta) 200-25 mcg/dose blister with device Discontinued 1 INH INHALATION DAILY July 02, 2021 12:00am August 12, 2021 12:27pm Start: 07-02-2021 End: 08-12-2021 Fluticasone Furoate-Vilanter ol (Breo Ellipta) 200-25 mcg/dose blister with device Discontinued 1 INH INHALATION DAILY July 02, 2021 1:00am August 12, 2021 1:27pm Start: 12-02-2019 End: 04-11-2020 Fluticasone Furoate-Vilanter ol 200-25 mcg/dose blister with device Discontinued 1 NMA INHALATION DAILY December 02, 2019 9:22am April 11, 2020 9:19am Start: 12-02-2019 End: 04-11-2020 Fluticasone Furoate-Vilanter ol Discontinued 1 EACH INHALATION DAILY December 02, 2019 8:22am April 11, 2020 8:19am Start: 12-02-2019 End: 04-11-2020 Fluticasone Furoate-Vilanter ol Discontinued 1 EACH INHALATION DAILY 60 December 02, 2019 9:22am April 11, 2020 9:19am Start: 12-02-2019 End: 12-02-2019 Fluticasone Furoate-Vilanter ol 200-25 mcg/dose blister with device Discontinued 1 NMA INHALATION DAILY 60 December 02, 2019 7:39am December 02, 2019 9:22am Start: 12-02-2019 End: 12-02-2019 Fluticasone Furoate-Vilanter ol Discontinued 1 EACH INHALATION DAILY 60 December 02, 2019 6:39am December 02, 2019 8:22am Start: 12-02-2019 End: 12-02-2019 Fluticasone Furoate-Vilanter ol Discontinued 1 EACH INHALATION DAILY 60 December 02, 2019 7:39am December 02, 2019 9:22am Start: 09-12-2019 End: 12-02-2019 Fluticasone Furoate-Vilanter ol 200-25 mcg/dose blister with device Discontinued 1 NMA INHALATION DAILY 60 September 12, 2019 11:55am December 02, 2019 7:39am Start: 09-12-2019 End: 12-02-2019 Fluticasone Furoate-Vilanter ol Discontinued 1 EACH INHALATION DAILY 60 September 12, 2019 10:55am December 02, 2019 6:39am Start: 09-12-2019 End: 12-02-2019 Fluticasone Furoate-Vilanter ol Discontinued 1 EACH INHALATION DAILY 60 September 12, 2019 11:55am December 02, 2019 7:39am Start: 09-07-2019 End: 09-12-2019 take 1 dose by inhalation once daily Fluticasone Furoate-Vilanterol 1 EACH blister with device Discontinued 1 NMA INHALATION DAILY September 07, 2019 1:00am September 12, 2019 11:55am Start: 09-07-2019 End: 09-12-2019 take 1 puff(s) by inhalation once daily Fluticasone Furoate-Vilanterol Discontinued 1 PUFF INHALATION DAILY September 07, 2019 12:00am September 12, 2019 10:55am Start: 09-07-2019 End: 09-12-2019 take 1 puff(s) by inhalation once daily Fluticasone Furoate-Vilanterol Discontinued 1 PUFF INHALATION DAILY September 07, 2019 1:00am September 12, 2019 11:55am Start: 01-26-2019 End: 01-27-2019 Fluticasone Furoate-Vilanter ol 200-25 mcg/dose blister with device Discontinued 1 NMA INHALATION DAILY 1 January 26, 2019 2:52pm January 27, 2019 8:42am rinse mouth after each use Start: 01-26-2019 End: 01-27-2019 Fluticasone Furoate-Vilanter ol Discontinued 1 INH INHALATION DAILY January 26, 2019 1:52pm January 27, 2019 7:42am rinse mouth after each use Start: 01-26-2019 End: 01-27-2019 Fluticasone Furoate-Vilanter ol Discontinued 1 INH INHALATION DAILY January 26, 2019 2:52pm January 27, 2019 8:42am rinse mouth after each use Start: 11-16-2017 End: 01-26-2019 Fluticasone Furoate-Vilanter ol 200-25 mcg/dose blister with device Discontinued 1 NMA INHALATION DAILY 3 November 16, 2017 10:19am January 26, 2019 2:53pm rinse mouth after each use Start: 11-16-2017 End: 01-26-2019 Fluticasone Furoate-Vilanter ol Discontinued 1 INH INHALATION DAILY November 16, 2017 9:19am January 26, 2019 1:53pm rinse mouth after each use Start: 11-16-2017 End: 01-26-2019 Fluticasone Furoate-Vilanter ol Discontinued 1 INH INHALATION DAILY 3 November 16, 2017 10:19am January 26, 2019 2:53pm rinse mouth after each use Start: 07-13-2017 End: 11-16-2017 take 1 dose by mouth once daily Fluticasone Furoate-Vilanterol 1 EACH blister with device Discontinued 1 NMA INHALATION DAILY July 13, 2017 5:28pm November 16, 2017 10:19am rinse mouth after each use Start: 07-13-2017 End: 11-16-2017 Fluticasone Furoate-Vilanter ol Discontinued 1 INH INHALATION DAILY July 13, 2017 4:28pm November 16, 2017 9:19am rinse mouth after each use Start: 07-13-2017 End: 11-16-2017 Fluticasone Furoate-Vilanter ol Discontinued 1 INH INHALATION DAILY July 13, 2017 5:28pm November 16, 2017 10:19am rinse mouth after each use Start: 12-01-2016 Fluticasone Fu roate-Vilanterol 200-25 mcg/dose blister with device Active 1 NMA INHALATION DAILY December 02, 2023 12:00am Start: 09-06-2016 End: 07-13-2017 take 1 dose by inhalation once daily Fluticasone Furoate-Vilanterol 1 EACH blister with device Discontinued 1 NMA IH DAILY September 06, 2016 1:00am July 13, 2017 5:30pm Start: 09-06-2016 End: 07-13-2017 Fluticasone Furoate-Vilanter ol Discontinued 1 EACH IH DAILY September 06, 2016 12:00am July 13, 2017 4:30pm Start: 09-06-2016 End: 07-13-2017 Fluticasone Furoate-Vilanter ol Discontinued 1 EACH IH DAILY September 06, 2016 1:00am July 13, 2017 5:30pm Comment on above: Inhale 1 Inhalation as instructed once daily. Inhale one puff once daily. () glipiZIDE er 2.5 mg 24 hr extended release oral tablet (17 sources) Sulfonylurea Start: 09-26-2022 take 1 tablet by mouth once daily Glipizide 2.5 mg tablet extended release 24hr Active 2.5 mg PO DAILY September 26, 2022 1:00am take 1 tablet by joan th twice daily before mealtime glipiZIDE 2.5 mg tablet Take 2.5 mg by mouth two times a day before meals. Active guaiFENesin 20 mg/ml oral solution (9 sources) Start: 11-03-2024 take 200 mg by mouth every six hours as needed for cough Guaifenesin (Adult Tussin Chest Congestion) 100 mg/5 mL liquid Active 200 mg PO EVERY 6 HOURS as needed for cough November 03, 2024 12:00am Start: 06-16-2024 End: 11-03-2024 take 1 tablet by mouth every twelve hours as needed Guaifenesin 600 mg tablet extended release 12hr Discontinued 600 mg PO Q12H as needed June 16, 2024 1:00am November 03, 2024 11:20am ibuprofen 600 mg oral tablet (3 sources) Nonsteroidal Anti-inflammatory Drug Start: 01-21-2022 End: 02-20-2022 take 1 tablet by mouth every six hours as needed ibuprofen (MOTRIN) 600 mg tablet Take 1 tablet by mouth every 6 hours as needed for pain. Take with food. 28 tablet 2 01/21/2022 02/20/2022 Active Comment on above: Take 1 tablet by joan th every 6 hours as needed for pain. Take with food. lisinopril 20 mg oral tablet (20 sources) Angiotensin Converting Enzyme Inhibitor Start: 11-03-2024 take 1 tablet by mouth twice daily Lisinopril 20 mg tablet Active 20 mg PO TWICE A DAY November 03, 2024 12:00am Start: 03-27-2022 End: 11-03-2024 take 2 tablets by mouth twice daily Lisinopril 10 mg tablet Discontinued 20 mg PO TWICE A DAY March 27, 2022 10:05am November 03, 2024 11:23am Start: 03-27-2022 take 20 mg by mouth twice jose alfredo y Lisinopril Active 20 MG PO TWICE A DAY March 27, 2022 9:05am Start: 11-04-2021 take 1 tablet by joan th twice daily lisinopril (ZESTRIL, PRINIVIL) 20 mg tablet Take 1 tablet by mouth twice daily. 180 tablet 1 11/04/2021 Active Start: 07-22-2021 End: 11-04-2021 take 2 tablets by mouth twice daily lisinopril (ZESTRIL, PRINIVIL) 10 mg tablet Indications: Essential hypertension Take 2 tablets by mouth twice daily. 0 07/22/2021 11/04/2021 Discontinued (Dosage adjustment) Start: 10-04-2020 End: 10-04-2020 take 2 tablets by mouth once daily Lisinopril 5 mg tablet Discontinued 10 mg PO DAILY October 04, 2020 10:27am October 04, 2020 12:57pm Start: 10-04-2020 End: 10-04-2020 take 10 mg by mouth once daily Lisinopril Discontinued 10 MG PO DAILY October 04, 2020 9:27am October 04, 2020 11:57am Start: 10-04-2020 End: 03-27-2022 take 1 tablet by mouth twice daily Lisinopril 10 mg tablet Discontinued 10 mg PO TWICE A DAY 180 October 08, 2021 12:22pm March 27, 2022 10:06am Start: 08-06-2019 End: 10-04-2020 take 1 tablet by mouth once daily Lisinopril 5 MG tablet Discontinued 5 mg PO DAILY August 06, 2019 1:00am October 04, 2020 10:28am Comment on above: Take 2 tablets by mo [facility] twice daily. Take 1 tablet by joan twice daily. loperamide hydrochloride 2 mg oral capsule (4 sources) Opioid Agonist Start: 11-03-2024 Loperamide (Anti-Diarrheal (Loperamide)) 2 mg capsule Active 0 PO .COMPLEX as needed for loose stool November 03, 2024 12:00am 2 TABS WITH FIRST LOOSE STOOL THEN 1 TAB WITH EACH LOOSE STOOL AFTER loratadine 10 mg oral tablet (20 sources) Start: 03-27-2022 End: 09-26-2022 take 1 tablet by mouth once daily Loratadine (Claritin) 10 mg tablet Active 10 mg PO DAILY September 26, 2022 1:00am Start: 10-01-2021 End: 11-24-2021 take 1 tablet by mouth once daily loratadine (CLARITIN) 10 mg tablet Indications: Urticaria Take 1 tablet by mouth once daily. 30 tablet 2 10/25/2021 11/24/2021 Active Comment on above: Take 1 tablet by [facility] once daily. mag hydrox/aluminum hyd/simeth (ANTACID SUSPENSION ORAL) (2 sources) mag hydrox/alumi num hyd/simeth (ANTACID SUSPENSION ORAL) Take by mouth. Active Magnesium Hydroxide (20 sources) Start: take 1 mL by mouth once daily as needed for constipation Magnesium Hydroxide (Milk Of Magnesia) 400 mg/5 mL suspension Active 30 mL PO DAILY as needed for constipation December 02, 2023 2:04pm Start: 12-02-2023 take 1 mL by mouth o nce daily as needed Magnesium Hydroxide (Milk Of Magnesia) 400 mg/5 mL suspension Active 30 mL PO DAILY as needed December 02, 2023 2:04pm Start: 03-27-2022 End: 12-02-2023 take 1 mL by mouth once daily as needed Magnesium Hydroxide (Milk Of Magnesia) 400 mg/5 mL suspension Discontinued 5 mL PO DAILY as needed March 27, 2022 12:00am May 1st, 2024 2:05pm Start: 03-27-2022 take 1 mL by mouth once daily Magnesium Hydroxide (Milk Of Magnesia) 400 mg/5 mL suspension Active 5 ML PO DAILY March 26, 2022 11:00pm Start: 03-27-2022 take 1 mL by mouth once daily Magnesium Hydroxide (Milk Of Magnesia) 400 mg/5 mL suspension Active 5 ML PO DAILY March 27, 2022 12:00am meclizine hydrochloride 25 mg oral tablet (20 sources) Antiemetic Start: 06-12-2021 take 1 tablet by mouth every six hours as needed for dizziness Meclizine 25 mg tablet Active 25 mg PO EVERY 6 HOURS as needed for Dizziness December 02, 2023 2:01pm Start: 02-14-2021 End: 12-02-2023 take 1 tablet by mouth once daily as needed for dizziness Meclizine 25 mg tablet Discontinued 25 mg PO DAILY as needed for Dizziness February 14, 2021 12:00am December 02, 2023 2:05pm Comment on above: Take 1 tablet by [facility] every 6 hours as needed (dizziness). metoprolol tartrate 25 mg oral tablet (4 sources) beta-Adrenergic Mira Start: 11-04-19 take 1 tablet by mouth twice daily Metoprolol Tartrate 25 mg tablet Active 25 mg PO TWICE A DAY November 03, 2024 12:00am nitrofurantoin, macrocrystals 25 mg / nitrofurantoin, monohydrate 75 mg oral capsule (4 sources) Nitrofuran Antibacterial Start: 01-10-20 End: 01-17-20 take 1 capsule by mouth twice daily nitrofurantoin monohydrate and macrocrystal (MACROBID) 100 mg capsule Take 1 capsule by mouth twice daily for 7 days. 14 capsule 0 2022 01/16/2022 Active Start: 11-02-2021 End: 11-05-2021 take 1 capsule by mouth twice daily at mealtime nitrofurantoin monohydrate and macrocrystal (MACROBID) 100 mg capsule Take 1 capsule by mouth twice daily with meals for 3 days. 6 capsule 0 11/02/2021 11/05/2021 Active Comment on above: Take 1 capsule by [facility] twice daily with meals for 3 days. Take 1 capsule by [facility] twice daily for 7 days. nystatin 100 unt/mg topical powder (20 sources) Polyene Antifungal Start: 03-27-2022 Nystatin 100,000 unit/gram powder Active 1 NMA TOPICAL THREE TIMES A DAY March 27, 2022 12:00am Start: 03-27-2022 Nystatin Activ e 1 APPLIC TOPICAL THREE TIMES A DAY March 26, 2022 11:00pm Start: 12-12-2020 End: 04-01-2024 nystatin (NYSTOP) powder Ind ications: Intertrigo Apply 1 application to affected area four times daily. 1 Bottle 2 12/12/2020 04/01/2024 Discontinued (Course of therapy completed) Comment on above: Apply 1 application to affected area four times daily. pravastatin sodium 40 mg oral tablet (20 sources) HMG-CoA Reductase Inhibitor Start: End: 2 take 1 tablet by mouth at bedtime Pravastatin 40 MG tablet Active 40 mg PO AT BEDTIME September 06, 2016 1:00am Comment on above: Take 1 tablet by joan daily at bedtime. sennosides, alf 8.6 mg oral tablet (19 sources) Start: take 1 tablet by mouth once daily Sennosides (Senokot) 8.6 mg tablet Active 8.6 mg PO DAILY March 27, 2022 12:00am take 1 tablet by mouth twice martín ly senna (SENOKOT) 8.6 mg tab Take 8.6 mg by mouth two times a day. Active sotalol hydrochloride 80 mg oral tablet (20 sources) Antiarrhythmic Start: 11-14-2024 take 1 tablet by mouth twice daily Sotalol 80 mg tablet Active 80 mg PO TWICE A DAY November 14, 2024 12:00am Start: 01-10-2019 End: 11-04-2024 take 1 tablet by mouth twice daily Sotalol 80 mg tablet Discontinued 80 mg PO TWICE A DAY 180 January 06, 2022 2:45pm November 04, 2024 4:59pm Comment on above: Take 1 tablet by joan twice daily. tiZANidine 2 mg oral tablet (7 sources) Central alpha-2 Adrenergic Agonist Start: 12-02-2023 take 1 tablet by mouth twice daily as needed Tizanidine 2 mg tablet Active 2 mg PO TWICE A DAY as needed for muscle spasticity December 02, 2023 12:00am take 1 capsule by mo [facility] every eight hours as needed tiZANidine HCl (ZANAFLEX) 2 mg capsule T marsha 2 mg by mouth three times a day as needed. Active Completed/Discontinued Medications Medication Drug Class(es) Dates Sig (Normalized) Sig (Original) amLODIPine 2.5 mg oral tablet (20 sources) Dihydropyridine Calcium Channel Mira Start: 03-27-2022 End: 06-16-2024 take 1 tablet by mouth once daily Amlodipine 2.5 mg tablet Discontinued 2.5 mg PO DAILY March 27, 2022 12:00am June 16, 2024 4:22pm Start: 09-24-2021 End: 12-16-2021 take 1 tablet by mouth once daily amLODIPine (NORVASC) 2.5 mg tablet Indications: Essential hypertension Take 1 tablet by mouth once daily. 90 tablet 1 12/16/2021 Active Comment on above: Take 1 tablet by joan once daily. aspirin 81 mg chewable tablet (20 sources) Platelet Aggregation Inhibitor, Nonsteroidal Anti-inflammatory Drug Start: End: take 1 tablet by mouth once daily aspirin 81 mg chewable tablet Take 1 tablet by mouth once daily. 09/24/2021 04/01/2024 Discontinued (Course of therapy completed) Start: 08-19-2021 End: 12-12-2022 take 1 tablet by mouth once daily Aspirin 81 mg tablet,delayed release (DR/EC) Discontinued 81 mg PO DAILY August 19, 2021 1:00am December 12, 2022 3:13pm Comment on above: Take 1 tablet by joan once daily. cefdinir 300 mg oral capsule (17 sources) Cephalosporin Antibacterial Start: 07-02-20 End: 08-19-19 take 1 capsule by mouth twice daily Cefdinir 300 mg capsule Discontinued 300 mg PO TWICE A DAY July 02, 2021 1:00am August 19, 2021 4:36pm clindamycin 300 mg oral capsule (15 sources) Lincosamide Antibacterial Start: 09-26-19 23 End: 06-16-20 Clindamycin Hcl 300 mg capsule Discontinued 600 mg PO ONCE 2 September 26, 2022 1:00am June 16, 2024 2:55pm Take 2 capsules 30-60 minutes prior to dental work. Start: 09-26-2022 Clindamycin Hc l Active 600 MG PO ONCE 2 September 26, 2022 12:00am Take 2 capsules 30-60 minutes prior to dental work. diazePAM 2 mg oral tablet (17 sources) Benzodiazepine Start: 09-06-2016 End: 12-01-2017 take 1 tablet by mouth three times daily as needed Diazepam 2 MG tablet Discontinued 2 mg PO 3 TIMES DAILY NEEDED as needed for Vertigo September 06, 2016 1:00am December 01, 2017 1:27pm causes drowsiness Disability Placard (17 sources) Start: 12-20-2018 End: 12-23-2018 Disability Placard Discontinued 0 .Route .MEDSUPPLY December 20, 2018 12:00am December 14, 2019 12:00am December 23, 2018 10:08am As directed Start: 12-20-2018 End: 12-23-2018 Disability Placard Discontin ued 0 .Route .MEDSUPPLY December 19, 2018 11:00pm December 23, 2018 9:08am As directed Start: 12-20-2018 End: 12-23-2018 Disability Placard Discontin ued 0 .Route .MEDSUPPLY December 20, 2018 12:00am December 23, 2018 10:08am As directed fexofenadine hydrochloride 180 mg oral tablet (20 sources) Histamine-1 Receptor Antagonist Start: 11-14-2019 End: 03-27-2022 take 1 tablet by mouth once daily Fexofenadine 180 mg tablet Discontinued 180 mg PO DAILY November 28, 2019 1:52pm March 27, 2022 10:06am Fluticasone Furoate (17 sources) Corticosteroid Start: 03-27-2022 End: 12-02-2023 Fluticasone Furoate 200 mcg/actuation blister with device Discontinued 1 NMA INHALATION Q24H March 27, 2022 12:00am December 02, 2023 2:04pm Start: 03-27-2022 Fluticasone Fu roate Active 1 INH INHALATION Q24H March 26, 2022 11:00pm Start: 03-27-2022 Fluticasone Fu roate Active 1 INH INHALATION Q24H March 27, 2022 12:00am hydrOXYzine hydrochloride 25 mg oral tablet (7 sources) Antihistamine Start: 10-25-2021 End: 12-16-2021 take 1 tablet by mouth three times daily as needed hydrOXYzine HCl (ATARAX) 25 mg tablet Indications: Urticaria Take 1 tablet by mouth three times daily as needed for itching/rash. 30 tablet 0 10/25/2021 12/16/2021 Discontinued Comment on above: Take 1 tablet by joan th three times daily as needed for itching/rash. metFORMIN hydrochloride 500 mg oral tablet (20 sources) Biguanide Start: 12-01-2017 End: 04-01-2024 take 1 tablet by mouth once daily Metformin 500 mg tablet Discontinued 500 mg PO DAILY December 01, 2017 12:00am September 26, 2022 3:43pm Start: 09-06-2016 End: 12-01-2017 take 1 tablet by mouth once daily Metformin 500 MG tablet,ER son.retention 24 hr Discontinued 500 mg PO DAILY September 06, 2016 1:00am December 01, 2017 1:27pm Comment on above: TABLET BY MOUTH EVER Y DAY WITH BREAKFAST oxyCODONE hydrochloride 5 mg oral tablet (9 sources) Opioid Agonist Start: 2 End: 4 oxyCODONE IR (ROXICODONE) 5 mg immediate release tablet Indications: pain Take 1 tablet by mouth every 6 hours as needed for pain for up to 5 doses. 5 tablet 01/21/2022 04/01/2024 Discontinued (Course of therapy completed) Comment on above: Take 1 tablet by joan th every 6 hours as needed for pain for up to 5 doses. pantoprazole 20 mg delayed release oral tablet (19 sources) Proton Pump Inhibitor Start: 0 End: 2 take 1 tablet by mouth once daily Pantoprazole 20 MG tablet Discontinued 20 mg PO DAILY January 14, 2020 12:00am March 27, 2022 10:05am Comment on above: Take 1 tablet by joan th daily before breakfast. Take on empty stomach, 1/2 hr before meal. predniSONE 10 mg oral tablet (20 sources) Start: 2 End: 2 take 4 tablets by mouth once daily, then take 3 tablets by mouth once daily, then take 2 tablets by mouth once daily, then take 1 tablet by mouth once daily predniSONE (DELTASONE) 10 mg tablet Indications: Rash and nonspecific skin eruption TAKE BY MOUTH 4 TABLETS DAILY FOR 2 DAYS, THEN 3 TABLETS DAILY FOR 2 DAYS, THEN 2 TABLETS DAILY FOR 2 DAYS, THEN 1 TABLET DAILY FOR 2 DAYS. 20 tablet 0 10/01/2021 12/16/2021 Discontinued Start: 07-02-2021 End: 08-19-2021 take 2 tablets by mouth once daily Prednisone 20 MG tablet Discontinued 40 mg PO DAILY July 02, 2021 1:00am August 19, 2021 4:36pm Start: 07-02-2021 End: 08-19-2021 take 40 mg by mouth once daily Prednisone Discontinued 40 MG PO DAILY July 02, 2021 12:00am August 19, 2021 3:36pm Comment on above: TAKE BY MOUTH 4 TABL ETS DAILY FOR 2 DAYS, THEN 3 TABLETS DAILY FOR 2 DAYS, THEN 2 TABLETS DAILY FOR 2 DAYS, THEN 1 TABLET DAILY FOR 2 DAYS. Take 4 tabs daily fo r 3 days, then 2 tabs daily for 3 days, then 1 tab daily for 3 days with food. Problems Active Problems Problem Classification Problem Date Documented Date Episodic/Chronic Asthma (20 sources) Asthma; Translations: [Unspecified asthma, uncomplicated] Onset: 07-12-2007 12-01-2016 Chronic Cardiac dysrhythmias (20 sources) Paroxysmal atrial fibrillation; Translations: [Paroxysmal atrial fibrillation] Onset: 05-24-2019 05-24-2019 Chronic Cardiac dysrhythmias (20 sources) Bradycardia; Translations: [Bradycardia, unspecified] Onset: 11-08-2024 10-20-2019 Episodic Conditions associated with dizziness or vertigo (20 sources) Dizziness; Translations: [Dizziness and giddiness] Onset: 05-25-2020 05-25-2020 Episodic Conduction disorders (20 sources) Cardiac pacemaker in situ; Translations: [Presence of cardiac pacemaker] Onset: 01-07-2019 05-10-2020 Chronic Diabetes mellitus with complications (3 sources) Polyneuropathy due to type 2 diabetes mellitus; Translations: [Type 2 diabetes mellitus with diabetic polyneuropathy] Onset: 11-25-2024 04-01-2024 Chronic Diabetes mellitus without complication (20 sources) [...] (primary) hypertension] Onset: 06-17-2007 12-01-2016 Chronic Genitourinary symptoms and ill-defined conditions (1 source) Dribbling of urine; Translations: [Post-void dribbling] Chronic Genitourinary symptoms and ill-defined conditions (3 sources) History of urinary tract infection; Translations: [Personal history of urinary (tract) infections] Episodic Heart valve disorders (20 sources) History of aortic valve replacement; Translations: [Presence of prosthetic heart valve] Onset: 12-03-2005 Resolved: 04-19-2013 05-24-2019 Chronic Comment on above: Porcine Porcine 2013 Menopausal disorders (2 sources) Atrophy of vagina; 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 Mycoses (3 sources) Onychomycosis; Translations: [Tinea unguium] Onset: 11-25-2024 04-01-2024 Episodic Nonspecific chest pain (17 sources) Atypical chest pain; Translations: [Other chest pain] 01-05-2020 Episodic Other circulatory disease (8 sources) Carotid bruit; Translations: [Other specified symptoms and signs involving the circulatory and respiratory systems] 12-02-2023 Episodic Other connective tissue disease (2 sources) Pain of toe of left foot; Translations: [Pain in left toe(s)] 04-01-2024 Episodic Other connective tissue disease (2 sources) Pain of toe of right foot; Translations: [Pain in right toe(s)] 04-01-2024 Episodic Other connective tissue disease (1 source) Pain in left toe(s); Translations: [Pain in toe of left foot] Onset: 11-25-2024 Episodic Other connective tissue disease (1 source) Pain in right toe(s); Translations: [Pain in toe of right foot] Onset: 11-25-2024 Episodic Other inflammatory condition of skin (1 source) Pruritus of vulva; Translations: [Pruritus vulvae] Episodic Other lower respiratory disease (17 sources) Dyspnea on exertion; Translations: [Other forms of dyspnea] 12-14-2019 Episodic Other lower respiratory disease (17 sources) Dyspnea; Translations: [Shortness of breath] 12-14-2019 Episodic Other lower respiratory disease (17 sources) Cough; Translations: [Cough] 02-17-2020 Episodic Other nutritional; endocrine; and metabolic disorders (10 sources) Obese class I; Translations: [Obesity, unspecified] Onset: 01-21-2022 01-21-2022 Chronic Other screening for suspected conditions (not mental disorders or infectious disease) (1 source) Patient encounter status; Translations: [Encounter for screening mammogram for malignant neoplasm of breast] Episodic Other skin disorders (2 sources) Ingrowing nail; Translations: [Ingrowing nail] 04-01-2024 Episodic Other skin disorders (1 source) Ingrowing nail; Translations: [Onychocryptosis] Onset: 11-25-2024 Episodic Other upper respiratory disease (17 sources) Seasonal allergic rhinitis; Translations: [Other seasonal allergic rhinitis] 11-14-2019 Chronic Pneumonia (except that caused by tuberculosis or sexually transmitted disease) (17 sources) Pneumonia; Translations: [Pneumonia, unspecified organism] 07-10-2021 Episodic Residual codes; unclassified (2 sources) Postoperative state; Translations: [Other specified postprocedural states] Episodic Past or Other Problems Problem Classification Problem Date Documented Da te Episodic/Chronic Allergic reactions (20 sources) Urticaria; Translations: [Urticaria, unspecified] Onset: 10-25-2021 Episodic Diabetes mellitus without complication (2 sources) Impaired fasting glycemia; Translations: [Impaired fasting glucose] Onset: 03-04-2010 Resolved: 04-20-2014 04-20-2014 Episodic Genitourinary congenital anomalies (5 sources) Fusion of vulva; 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] Onset: 09-28-2012 Resolved: 06-07-2014 Chronic Other circulatory disease (1 source) Other specified symptoms and signs involving the circulatory and respiratory systems; Translations: [Other specified symptoms and signs involving the circulatory and respiratory systems] Onset: 06-16-2024 Episodic Other inflammatory condition of skin (20 sources) Lichen planus; Translations: [Lichen planus, unspecified] Onset: 03-09-2014 03-09-2014 Episodic Other nutritional; endocrine; and metabolic disorders (2 sources) Obesity; Translations: [Obesity, unspecified] Onset: 06-17-2007 Resolved: 06-07-2014 06-07-2014 Chronic Results Test Name Value Interpretation Reference Range Facility Absolute lymphocyte countOrd ered By: Angela Manjarrez on 11-25-2024 Lymphocytes Auto (Unsp spec) [#/Vol] 1.98 10*3/uL 0.83-4.51 [facility] Absolute neutrophil countOrd ered By: Angela Manjarrez on 11-25-2024 Neutrophils (Bld) [#/Vol] 4.6 10*3/uL 2.0-7.7 [facility] Anion gap in Serum or Plasma Ordered By: Angela Manjarrez on 11-25-2024 Anion gap [Moles/Vol] 11 mmol/L 12-15 [facility] Automated lymphocyte count a s percentage of total leukocytesOrdered By: Angela Manjarrez on 11-25-2024 Lymphocytes/100 WBC Auto (Unsp spec) 25.7 % - [facility] BUN/creatinine ratioOrdered By: Angela Manjarrez on 11-25-2024 Urea nitrogen/Creatinine [Mass ratio] 22.1 mg/mg High 10- [facility] Basophil percentageOrdered B y: Angela Manjarrez on 11-25-2024 Basophils/100 WBC (Bld) 0.9 % 0-1 [facility] Bilirubin, totalOrdered By: Angela Manjarrez on 11-25-2024 Bilirubin [Mass/Vol] 0.33 mg/dL 0.00-1.30 [facility] CBC W/Diff, Automatedon 11-02 Absolute Lymph 1.98 X10 3/uL Normal 0.83-4.51 [facility] Comment on above: Order Comment: 114 Performed By: #### L [id number], L100.0100, L500.2500 #### [facility] [address] [place], [place], [id number] Absolute Neut 4.6 X10 3/uL Normal 2.0-7.7 [facility] Comment on above: Order Comment: 114 Performed By: #### L [id number], L100.0100, L500.2500 #### [facility] [address] [place], [address] Basophils/100 WBC (Bld) 0.9 % Normal 0-1 [facility] Comment on above: Order Comment: 114 Performed By: #### L [id number], L100.0100, L500.2500 #### [facility] [address] [place], [address] Eosinophils/100 WBC (Bld) 2.3 % Normal 0-5 [facility] Comment on above: Order Comment: 114 Performed By: #### L [id number], L100.0100, L500.2500 #### [facility] [address] [place], [address] Erythrocyte distribution width (RBC) [Ratio] 16.0 % High 11.6-14.6 [facility] Comment on above: Order Comment: 114 Performed By: #### L [id number], L100.0100, L500.2500 #### [facility] [address] [place], [address] Hematocrit (Bld) [Volume fraction] 34.5 % Low 37-47 [facility] Comment on above: Order Comment: 114 Performed By: #### L [id number], L100.0100, L500.2500 #### [facility] [address] [place], [address] Hemoglobin (Bld) [Mass/Vol] 10.8 g/dL Low 12.0-15.0 [facility] Comment on above: Order Comment: 114 Performed By: #### L [id number], L100.0100, L500.2500 #### [facility] [address] [place], [address] IG% 0.300 Normal 0.0-0.9 [facility] Comment on above: Order Comment: 114 Result Comment: IG% - Immature Granulocytes (promyelocytes, myelocytes and metamyelocytes) > 1% indicates that a LEFT SHIFT is Present. Performed By: #### L [id number], L100.0100, L500.2500 #### [facility] [address] [place], [address] Lymphocytes/100 WBC (Bld) 25.7 % Normal 19-41 [facility] Comment on above: Order Comment: 114 Performed By: #### L [id number], L100.0100, L500.2500 #### [facility] [address] [place], [address] MCH (RBC) [Entitic mass] 29.1 pg Normal 27.0-32.0 [facility] Comment on above: Order Comment: 114 Performed By: #### L [id number], L100.0100, L500.2500 #### [facility] [address] [place], [address] MCHC (RBC) [Mass/Vol] 31.3 g/dL Low 32-36 [facility] Comment on above: Order Comment: 114 Performed By: #### L [id number], L100.0100, L500.2500 #### [facility] [address] [place], [address] MCV (RBC) [Entitic vol] 93.0 fL Normal 81-99 [facility] Comment on above: Order Comment: 114 Performed By: #### L [id number], L100.0100, L500.2500 #### [facility] [address] [place], [address] Monocytes/100 WBC (Bld) 11.3 % High 0-10 [facility] Comment on above: Order Comment: 114 Performed By: #### L [id number], L100.0100, L500.2500 #### [facility] [address] [place], [address] Neutrophils/100 WBC (Bld) 59.5 % Normal 47-70 [facility] Comment on above: Order Comment: 114 Performed By: #### L [id number], L100.0100, L500.2500 #### [facility] [address] [place], [address] Nucleated RBC (Bld) [#/Vol] 0 10*3/uL Normal 0-5 [facility] Comment on above: Order Comment: 114 Performed By: #### L [id number], L100.0100, L500.2500 #### [facility] [address] [place], [address] Platelet mean volume (Bld) [Entitic vol] 11.8 fL Normal 6.2-12.0 [facility] Comment on above: Order Comment: 114 Performed By: #### L [id number], L100.0100, L500.2500 #### [facility] [address] [place], [address] Platelets (Bld) [#/Vol] 175 10*3/uL Normal 150-450 [facility] Comment on above: Order Comment: 114 Performed By: #### L [id number], L100.0100, L500.2500 #### [facility] [address] [place], [address] RBC (Bld) [#/Vol] 3.71 10*6/uL Low 4.2-5.4 [facility] Comment on above: Order Comment: 114 Performed By: #### L [id number], L100.0100, L500.2500 #### [facility] [address] [place], [address] RDW SD 54.9 fl High 35.1-43.9 [facility] Comment on above: Order Comment: 114 Performed By: #### L [id number], L100.0100, L500.2500 #### [facility] [address] [place], [address] WBC (Bld) [#/Vol] 7.7 10*3/uL Normal 4.4-11.0 [facility] Comment on above: Order Comment: 114 Performed By: #### L [id number], L100.0100, L500.2500 #### [facility] [address] [place], [address] CNOVon 11-25-2024 CNOV Office Visit (PODIWS) CLARI STEPHENS ([id number]) 1950 F Date Time Provider Department 11/25/24 3:40 PM ZAHRA VAZQUEZ PODIWS During your visit today, we recorded the following information about you: Katelin Breen, REYNOLD 11/25/2024 4:00 PM Signed Patient presents with: Left Foot - Established Patient, Follow Up, Diabetic Foot Care Right Foot - Established Patient, Follow Up, Diabetic Foot Care Patient presents for follow up diabetic foot/nail care. JAVI 07/08/24 Zahra Vazquez 11/25/2024 3:50 PM Signed Diabetes Foot Care Instructions When you have diabetes, proper foot care is very important. Poor foot care may lead to amputation of a foot or leg. As a person with diabetes, you are more vulnerable to foot problems, because diabetes can damage your nerves and reduce blood flow to your feet. Here are some diabetes foot care tips to follow: Wash and Dry Your Feet Daily Use mild soaps Use warm water Pat your skin dry; do not rub. Thoroughly dry your feet. After washing, use lotion on your feet to prevent cracking. Do not put lotion between your toes. Examine Your Feet Each Day Check the tops and bottoms of your feet. Have someone else look at your feet if you cannot see them. Check for dry, cracked skin. Look for blisters, cuts, scratches, or other sores. Check for redness, increased warmth, or tenderness when touching any area of your feet. Check for ingrown toenails, corns, and calluses. If you get a blister or sore from your shoes, do not "pop" it. Apply a bandage and wear a different pair of shoes. Take Care of Your Toenails Cut toenails after bathing, when they are soft. Cut toenails straight across and smooth with a nail file. Avoid cutting into the corners of toes. Do not cut cuticles. If you have neuropathy (or decreased sensation in your feet) a overhead crane technician should always cut your toenails. Be Careful When Exercising Walk and exercise in comfortable shoes. Do not exercise when you have open sores on your feet. Protect Your Feet With Shoes and Socks Never go barefoot. Always protect your feet by wearing shoes or hard-soled slippers or footwear. Avoid shoes with high heels and pointed toes. Avoid shoes that expose your toes or heels (such as open-toed shoes or sandals). These types of shoes increase your risk for injury and potential infections. Try on new footwear with the type of socks you usually wear. Do not wear new shoes for more than an hour at a time. Change your socks daily. Look and feel inside your shoes before putting them on to make sure there are no foreign objects or rough areas. Avoid tight socks. Wear natural-fiber socks (cotton, wool, or a cotton-wool blend). Wear special shoes if your health care provider recommends them. Wear shoes/boots that will protect your feet from various weather conditions (cold, moisture, etc.). Make sure your shoes fit properly. If you have neuropathy (nerve damage), you may not notice that your shoes are too tight. Perform the footwear test described below. Footwear Test Use this simple test to see if your shoes fit correctly: Stand on a piece of paper. (Make sure you are standing and not sitting, because your foot changes shape when you stand.) Trace the outline of your foot. Trace the outline of your shoe. Compare the tracings: Is the shoe too narrow? Is your foot crammed into the shoe? The shoe should be at least 1/2 inch longer than your longest toe and as wide as your foot. Proper Shoe Choices The following types of shoes are best for people with diabetes Closed toes and heels Leather uppers without a seam inside At least 1/2 inch extra space at the end of your longest toe Inside of shoe should be soft with no rough areas Outer sole should be made of stiff material Shoes should be at least as wide as your feet Tips for Foot Care in Diabetes Don't wait to treat a minor foot problem if you have diabetes. Follow your health care provider's guidelines and first aid guidelines. Report foot injuries and infections to your health care provider immediately. Check water temperature with your elbow, not your foot. Do not use a heating pad on your feet. Do not cross your legs. Do not self-treat your corns, calluses, or other foot problems. Go to your health care provider or overhead crane technician to treat these conditions. Zahra Vazquez 11/25/2024 4:00 PM Signed Last saw pcp: not in chart Subjective: Patient presents to clinic c/o painful toenails. They state that the nails are especially painful with shoe gear and pressure. Patient states that nails left 3rd are painful. Patient admits to being diabetic and states. No other pedal complaints at this time. Patient states no change in medications or medical history since last visit. Objective: Patient presents to clinic ambulating in [facility] Vasc: DP and PT pu (more content not included)... Normal [facility] Calculated very low density lipoprotein (VLDL) cholesterol measurementOrdered By: Angela Manjarrez on 11-25-2024 Calculated very low density lipoprotein (VLDL) cholesterol measurement 26 mg/dL 5-40 [facility] Carbon dioxide, total [Moles /volume] in Central venous bloodOrdered By: Angela Manjarrez on 11-25-2024 CO2 [Moles/Vol] 20.3 mmol/L Low 21.0-32.0 [facility] Chloride assayOrdered By: Vincent Manjarrez on 11-25-2024 Chloride [Moles/Vol] 112 mmol/L High 98-108 [facility] Comprehensive Metabolic Prof ilon 11-25-2024 Albumin [Mass/Vol] 3.5 g/dL Normal 3.4-4.8 [facility] Comment on above: Order Comment: 114 Performed By: #### L 501.5200, L100.0100, L500.2500 #### [facility] [address] [place], [address] Albumin/Globulin [Mass ratio] 1.4 {ratio} Normal 0.9-2.4 [facility] Comment on above: Order Comment: 114 Performed By: #### L 501.5200, L100.0100, L500.2500 #### [facility] [address] [place], [address] ALK PHOS 93 U/L Normal 35-104 [facility] Comment on above: Order Comment: 114 Performed By: #### L 501.5200, L100.0100, L500.2500 #### [facility] [address] [place], [address] ALT [Catalytic activity/Vol] 20 U/L Normal <=34 [facility] Comment on above: Order Comment: 114 Performed By: #### L 501.5200, L100.0100, L500.2500 #### [facility] [address] [place], [address] AST [Catalytic activity/Vol] 25 U/L Normal <=31 [facility] Comment on above: Order Comment: 114 Performed By: #### L 501.5200, L100.0100, L500.2500 #### [facility] [address] [place], [address] Bilirubin [Mass/Vol] 0.33 mg/dL Normal 0.00-1.30 [facility] Comment on above: Order Comment: 114 Performed By: #### L 501.5200, L100.0100, L500.2500 #### [facility] [address] [place], [address] BUN/CRE 22.1 RATIO High 10-20 [facility] Comment on above: Order Comment: 114 Performed By: #### L 501.5200, L100.0100, L500.2500 #### [facility] [address] [place], [address] Calcium [Mass/Vol] 9.3 mg/dL Normal 7.6-11.0 [facility] Comment on above: Order Comment: 114 Performed By: #### L 501.5200, L100.0100, L500.2500 #### [facility] [address] [place], [address] Chloride [Moles/Vol] 112 mmol/L High 98-108 [facility] Comment on above: Order Comment: 114 Performed By: #### L 501.5200, L100.0100, L500.2500 #### [facility] [address] [place], [address] CO2 [Moles/Vol] 20.3 mmol/L Low 21.0-32.0 [facility] Comment on above: Order Comment: 114 Performed By: #### L 501.5200, L100.0100, L500.2500 #### [facility] [address] [place], [address] Creatinine [Mass/Vol] 0.91 mg/dL Normal 0.70-1.20 [facility] Comment on above: Order Comment: 114 Performed By: #### L 501.5200, L100.0100, L500.2500 #### [facility] [address] [place], [address] GAP 11 Normal 5-15 [facility] Comment on above: Order Comment: 114 Performed By: #### L 501.5200, L100.0100, L500.2500 #### [facility] [address] [place], [address] GFR/1.73 sq M.predicted among non-blacks MDRD (S/P/Bld) [Vol rate/Area] 65 mL/min/{1.73_m2} Normal >60 [facility] Comment on above: Order Comment: 114 Result Comment: mL/m in/1.73m2 CKD-EPI Creatinine Equation (2020) Performed By: #### L 501.5200, L100.0100, L500.2500 #### [facility] [address] [place], [address] Globulin (S) [Mass/Vol] 2.5 g/dL Normal 2.2-4.2 [facility] Comment on above: Order Comment: 114 Performed By: #### L 501.5200, L100.0100, L500.2500 #### [facility] [address] [place], [address] Glucose [Mass/Vol] 106 mg/dL High 70-99 [facility] Comment on above: Order Comment: 114 Performed By: #### L 501.5200, L100.0100, L500.2500 #### [facility] [address] [place], [address] Potassium [Moles/Vol] 4.3 mmol/L Normal 3.3-5.1 [facility] Comment on above: Order Comment: 114 Performed By: #### L 501.5200, L100.0100, L500.2500 #### [facility] [address] [place], [address] Sodium [Moles/Vol] 144 mmol/L Normal 133-145 [facility] Comment on above: Order Comment: 114 Performed By: #### L 501.5200, L100.0100, L500.2500 #### [facility] [address] [place], [address] T PROT 5.9 g/dL Normal 5.9-8.4 [facility] Comment on above: Order Comment: 114 Performed By: #### L 501.5200, L100.0100, L500.2500 #### [facility] [address] [place], [place], [address] Urea nitrogen [Mass/Vol] 20 mg/dL High 4-19 [facility] Comment on above: Order Comment: 114 Performed By: #### L 501.5200, L100.0100, L500.2500 #### [facility] [address] [place], [place], [address] Eosinophil percentageOrdered By: Angela Manjarrez on 11-25-2024 Eosinophils/100 WBC (Bld) 2.3 % 0-5 [facility] Erythrocyte distribution wid th ratioOrdered By: Angela Manjarrez on 11-25-2024 Erythrocyte distribution width (RBC) [Ratio] 16.0 % High 11.6-14.6 [facility] Erythrocyte distribution wid th standard deviationOrdered By: Angelaerick Manjarrez on 11-25-2024 Erythrocyte distribution width (RBC) [Ratio] 54.9 fl High 35.1-43.9 [facility] Glomerular filtration rate ( GFR) estimation/1.73 sq m using serum, plasma, or whole bOrdered By: Angela Manjarrez on 11-25-2024 GFR/1.73 sq M.predicted among non-blacks MDRD (S/P/Bld) [Vol rate/Area] 65 mL/min/{1.73_m2} >60 [facility] Comment on above: mL/min/1.73m2 CKD-EP I Creatinine Equation (2020) Hematocrit Auto (Bld) [Volum e fraction]Ordered By: Angela Manjarrez on 11-25-2024 Hematocrit (Bld) [Volume fraction] 34.5 % Low 37-47 [facility] Hemoglobin A1con 11-25-2024 HbA1c (Bld) [Mass fraction] 6.2 % High <=5.6 [facility] Comment on above: Order Comment: 114 Result Comment: Norm al < 5.7 % Prediabetic 5.7 - 6.4 % Diabetic >or= 6.5 % Please note range changes. Performed By: #### L 501.5200, L100.0100, L500.2500 #### [facility] [address] [place], [address] Hemoglobin A1c percentageOrd ered By: Angela Manjarrez on 11-25-2024 HbA1c (Bld) [Mass fraction] 6.2 % High <5.7 [facility] Comment on above: Normal < 5.7 % Predi abetic 5.7 - 6.4 % Diabetic >or= 6.5 % Please note range changes. Hemoglobin measurementOrdere d By: Angela Manjarrez on 11-25-2024 Hemoglobin (Bld) [Mass/Vol] 10.8 g/dL Low 12.0-15.0 [facility] Immature granulocytes/100 WB C Auto (Bld)Ordered By: Angela Manjarrez on 11-25-2024 Immature granulocytes/100 WBC (Bld) 0.300 % 0.0-0.9 [facility] Comment on above: IG% - Immature Granu locytes (promyelocytes, myelocytes and metamyelocytes) > 1% indicates that a LEFT SHIFT is Present. LDL calc ser/plasOrdered By: Angela Manjarrez on 11-25-2024 Cholesterol in LDL [Mass/Vol] 75 mg/dL [facility] Comment on above: Xybcbpxjnt=910-471 m g/dL & Higher Wsjy=071 mg/dL or greater Laboratory - Chemistry and C hemistry - challengeOrdered By: Angela Manjarrez on 11-25-2024 AST [Catalytic activity/Vol] 25 U/L <32 [facility] Lipid Profileon 11-25-2024 CHOL:HDL 3.55 Normal [facility] Comment on above: Order Comment: 114 Performed By: #### L 501.5200, L100.0100, L500.2500 #### [facility] [address] [place], [place], [id number] Cholesterol [Mass/Vol] 141 mg/dL Normal <=200 [facility] Comment on above: Order Comment: 114 Result Comment: Chol esterol level, Desirable <200 mg/dL Borderline high cholesterol 200-239 mg/dL High cholesterol >=240 mg/dL Recommendations of the NCEP Adult Treatment Panel for the following risk-cutoff thresholds for the [place] population. Performed By: #### L 501.5200, L100.0100, L500.2500 #### [facility] [address] [place], [address] Cholesterol in HDL [Mass/Vol] 40 mg/dL Normal [facility] Comment on above: Order Comment: 114 Result Comment: Linda onal Cholesterol Education Program (NCEP) guidelines: <40 mg/dL: Low HDL-cholesterol (major risk factor for CHD) >= 60 mg/dL: High HDL-cholesterol (negative risk factor for CHD) HDL-cholesterol is affected by a number of factors, e.g. smoking, exercise, hormones, sex and age. Performed By: #### L 501.5200, L100.0100, L500.2500 #### [facility] [address] [place], [address] Cholesterol in LDL [Mass/Vol] 75 mg/dL Normal [facility] Comment on above: Order Comment: 114 Result Comment: Bord antmge=315-742 mg/dL Higher Pxhm=908 mg/dL or greater Performed By: #### L 501.5200, L100.0100, L500.2500 #### [facility] [address] [place], [address] Cholesterol in VLDL [Mass/Vol] 26 mg/dL Normal 5-40 [facility] Comment on above: Order Comment: 114 Performed By: #### L 501.5200, L100.0100, L500.2500 #### [facility] [address] [place], [address] Triglyceride [Mass/Vol] 130 mg/dL Normal [facility] Comment on above: Order Comment: 114 Result Comment: The drugs N-Acetylcysteine and Metamizole may falsely depress this assay. Normal range: <150 mg/dL Borderline High: 150-199 mg/dL High: 200-499 mg/dL Very High: >500 mg/dL Performed By: #### L 501.5200, L100.0100, L500.2500 #### [facility] [place], [address] MCV (mean corpuscular volume ) determinationOrdered By: Angela Manjarrez on 11-25-2024 MCV (RBC) [Entitic vol] 93.0 fL 81-99 [facility] Mean corpuscular hemoglobin (MCH) determinationOrdered By: Angela Manjarrez on 11-25-2024 MCH (RBC) [Entitic mass] 29.1 pg 27.0-32.0 [facility] Mean corpuscular hemoglobin concentration (MCHC) determinationOrdered By: Angela Manjarrez on 11-25-2024 MCHC (RBC) [Mass/Vol] 31.3 g/dL Low 32-36 [facility] Mean platelet volume determi nationOrdered By: Angela Manjarrez on 11-25-2024 Platelet mean volume (Bld) [Entitic vol] 11.8 fL 6.2-12.0 [facility] Monocyte percentageOrdered B y: Angela Manjarrez on 11-25-2024 Monocytes/100 WBC (Bld) 11.3 % High 0-10 [facility] Neutrophil percentageOrdered By: Angela Manjarrez on 11-25-2024 Neutrophils/100 WBC (Bld) 59.5 % 47-70 [facility] Nucleated red blood cell per centageOrdered By: Angela Mnajarrez on 11-25-2024 Nucleated RBC/100 WBC (Bld) [Ratio] 0 % 0-5 [facility] Platelet countOrdered By: Vincent Manjarrez on 11-25-2024 Platelets (Bld) [#/Vol] 175 10*3/uL 150-450 [facility] Potassium measurement (mass/ volume)Ordered By: Angela Manjarrez on 11-25-2024 Potassium (Unsp spec) [Mass/Vol] 4.3 mmol/L 3.3-5.1 [facility] RBC Auto (Bld) [#/Vol]Ordere d By: Angela Manjarrez on 11-25-2024 RBC (Bld) [#/Vol] 3.71 10*6/uL Low 4.2-5.4 [facility] Screening total cholesterol/ high density lipoprotein (HDL) cholesterol ratioOrdered By: Angela Manjarrez on 11-25-2024 Cholesterol.total/Choles terol in HDL [Mass ratio] 3.55 {ratio} [facility] Serum creatinine measurement (mass/volume)Ordered By: Angela Manjarrez on 11-25-2024 Creatinine [Mass/Vol] 0.91 mg/dL 0.70-1.20 [facility] Serum globulin measurementOr dered By: Angela Manjarrez on 11-25-2024 Globulin (S) [Mass/Vol] 2.5 g/dL 2.2-4.2 [facility] Serum glucose measurement (m ass/volume)Ordered By: Angela Manjarrez on 11-25-2024 Glucose [Mass/Vol] 106 mg/dL High 70-99 [facility] Serum or plasma alanine an otransferase (ALT) measurementOrdered By: Angela Manjarrez on 11-25-2024 ALT [Catalytic activity/Vol] 20 U/L <35 [facility] Serum or plasma albumin jia urement (mass/volume)Ordered By: Angela Manjarrez on 11-25-2024 Albumin [Mass/Vol] 3.5 g/dL 3.4-4.8 [facility] Serum or plasma albumin/glob ulin mass ratioOrdered By: Angela Manjarrez on 11-25-2024 Albumin/Globulin [Mass ratio] 1.4 {ratio} 0.9-2.4 [facility] Serum or plasma alkaline michael sphatase measurementOrdered By: Angela Manjarrez on 11-25-2024 ALP [Catalytic activity/Vol] 93 U/L 35-104 [facility] Serum or plasma calcium jia urement (mass/volume)Ordered By: Angela Manjarrez on 11-25-2024 Calcium [Mass/Vol] 9.3 mg/dL 7.6-11.0 [facility] Serum or plasma cholesterol in HDL measurement (mass/volume)Ordered By: Angela Manjarrez on 11-25-2024 Cholesterol in HDL [Mass/Vol] 40 mg/dL >40 [facility] Comment on above: National Cholesterol Education Program (NCEP) guidelines:<40 mg/dL: Low HDL-cholesterol (major risk factor for CHD)>= 60 mg/dL: High HDL-cholesterol (negative risk factor for CHD)HDL-cholesterol is affected by a number of factors, e.g. smoking, exercise, hormones, sex and age. Serum or plasma cholesterol measurement (mass/volume)Ordered By: Angela Manjarrez on 11-25-2024 Cholesterol [Mass/Vol] 141 mg/dL <201 [facility] Comment on above: Cholesterol level, D esirable <200 mg/dLBorderline high cholesterol 200-239 mg/dLHigh cholesterol >=240 mg/dLRecommendations of the NCEP Adult Treatment Panel for the following risk-cutoff thresholds for the [place] population. Serum or plasma urea nitroge n measurement (mass/volume)Ordered By: Angela Manjarrez on 11-25-2024 Urea nitrogen [Mass/Vol] 20 mg/dL High 4-19 [facility] Sodium levelOrdered By: Brandyn Manjarrez on 11-25-2024 Sodium [Moles/Vol] 144 mmol/L 133-145 [facility] TSH DL <= 0.005 mIU/L QnOrde red By: Angela Manjarrez on 11-25-2024 TSH Qn 2.480 uIU/mL 0.300-4.200 [facility] Thyroid Stim Hormone (TSH)on 11-25-2024 TSH 2.480 uIU/mL Normal 0.300-4.200 [facility] Comment on above: Order Comment: 114 Performed By: #### L 501.5200, L100.0100, L500.2500 #### [facility] [address] [place], [place], [id number] Total proteinOrdered By: Roxi Manjarrez on 11-25-2024 Protein [Mass/Vol] 5.9 g/dL 5.9-8.4 [facility] Triglycerides measurementOrd ered By: Angela Manjarrez on 11-25-2024 Triglyceride [Mass/Vol] 130 mg/dL <199 [facility] Comment on above: The drugs N-Acetylcy steine and Metamizole may falsely depress this assay. Normal range: <150 mg/dLBorderline High: 150-199 mg/dLHigh: 200-499 mg/dLVery High: >500 mg/dL White blood cell (WBC) count Ordered By: Angela Manjarrez on 11-25-2024 WBC (Bld) [#/Vol] 7.7 10*3/uL 4.4-11.0 [facility] 12 Lead EKG performed by [facility] on 11-14-2024 12 Lead EKG performed by [facility] [address] [place] [address] 12 Lead EKG performed by [facility] 11/14/24 140 MR#: [id number] Acct: [id number] Name: CLARI STEPHENS Rep #: [id number] : 1950 74 From: Blanca Kaufman NP CIPHER EXPERT-C Attending Dr: Blanca Kaufman, CIPHER EXPERT-C Status: DEP A MB Ordering Dr: Blanca Kaufman CIPHER EXPERT CIPHER EXPERT-C Date: 11/14/24 Location: [facility] Sex: F C Admitted: [facility]/12 Lead EKG performed by [facility] ECG Report Interpretation ------Atrial pacingElectronically signed on 11/15/2024 at 14:55 by Rubio [employer] Version [id number] 11/15/24 1459 Date Blanca Kaufman NP [employer]C CC: Angela Manjarrez MD Date Dictated: 11/14/241408 Date Transcribed: 11/14/241408 Shank Archer: ALICE Signed Normal [facility] Cardiology Visit Reporton Cardiology Visit Report [facility] [address] [place] [address] OFFICE VISIT Date of Service: 11/14/24 MR#: [id number] Acct: [id number] Name: CLARI STEPHENS Rep #: [id number] : 1950 Provider: STEPHANY dang Age/Sex: 74/F Location: [facility] Status: Signed HPI HPI History of Present Illness Details: This is a 74-year-old female who presents today for cardiovascular follow-up visit. She has a history of aortic valve stenosis status post replacement with a bioprosthetic valve, paroxysmal atrial fibrillation on sotalol, sick sinus syndrome status post permanent pacemaker placement, dyslipidemia and diabetes mellitus. Patient presented to the emergency room on 11/03/2024 with complaints of palpitations. Her EKG at that time demonstrated paced rhythm with a heart rate of 62, PVCs noted. In the emergency room room she had runs of atrial flutter, and atrial fibrillation with heart rates in the 90s to 110s. She was placed back on sotalol 80 mg twice daily and discharged to follow-up with cardiology. From a cardiac standpoint, the patient is doing well. She does acknowledge occasional palpitations. She denies any chest pain, pressure or heaviness. She does have SOB with walking fast-this is nothing new or worsening. She denies Orthopnea, and PND. She does not have bleeding issues; no blood in urine, stool, or nosebleeds. She does acknowledge a decrease in energy level. She denies myalgias, or claudication. She does not have edema, or sudden weight gain. She does have vertigo. She denies lightheadedness, dizziness, syncopal or near syncopal episodes, and headaches. Intake Vital Signs 11/03/24 10:47 11/14/24 14:08 Height 5 ft 8 in 5 ft 8 in Weight: 203 lb BMI 30.9 BP 136/84 H Blood Pressure Location Lt brachial Position Sitting Respiration 20 H Pulse 66 Pulse Source Monitor Pulse Oximetry (%) 97 Intake Visit Reasons: S/P [facility] 11/03 [employer] Required: No Is patient in pain?: No Allergies Penicillins Allergy (Verified 11/14/24 14:20) Shortness of breath Medications ???Medication ???Instructions ???Recorded ???Confirmed ???Type pravastatin 40 mg tablet 40 mg PO QHS CHOLESTEROL 09/06/16 11/14/24 History clobetasol 0.025 % topical cream 1 applic topical DAILY 07/02/21 History estradiol 0.01% (0.1 mg/gram) 1 applic vaginal .COMPLEX 07/02/21 11/14/24 History vaginal cream fluticasone furoate 200 1 inh inhalation DAILY #60 ea 08/0311/14/24 Rx mcg-vilanterol 25 mcg/dose inhalation powder (Breo Ellipta) acetaminophen 500 mg capsule 500 mg PO Q6H PRN fever or pain 11/14/24 History famotidine 40 mg tablet 40 mg PO DAILY 03/27/22 11/14/24 H istory nystatin 100,000 unit/gram topical 1 applic topical TID 03/27/22 History powder sennosides 8.6 mg tablet (Senokot) 8.6 mg PO DAILY 03/27/22 5 History glipizide 2.5 mg tablet, extended 2.5 mg PO DAILY 09/26/22 11/14/24 History release 24 hr loratadine 10 mg tablet (Claritin) 10 mg PO DAILY 09/26/22 11/14/24 History apixaban 5 mg tablet (Eliquis) 5 mg PO BID #60 tabs 12/10/2211/01 Rx albuterol sulfate 90 mcg/actuation 2 puff inhalation Q6H PRN 11/14/24 History aerosol inhaler shortness of breath or wheezing cholecalciferol (vitamin D3) 50 50 mcg PO DAILY 12/02/23 11/14/24 History mcg (2,000 unit) tablet fluticasone furoate 200 1 inh inhalation DAILY 12/02/23 History mcg-vilanterol 25 mcg/dose inhalation powder magnesium hydroxide 400 mg/5 mL 30 ml PO DAILY PRN constipation 11/14/24 History oral suspension (Milk of Magnesia) meclizine 25 mg tablet 25 mg PO Q6H PRN Dizziness 4 11/14/24 History tizanidine 2 mg tablet 2 mg PO BID PRN muscle spasticity 12/02/23 11/14/24 History aluminum-magnesium hydroxide 225 30 ml PO Q4H PRN PRN gi distress 1 08/16/23 11/14/24 History mg-200 mg/5 mL oral suspension guaifenesin 100 mg/5 mL oral 200 mg PO Q6H PRN cough 11/03/24 0 11/14/24 History liquid (Adult Tussin Chest Congestion) lisinopril 20 mg tablet 20 mg PO BID 11/03/24 11/14/24 His tory loperamide 2 mg capsule See Rx Instructions PO .COMPLEX 11/14/24 History (Anti-Diarrheal (loperamide)) PRN loose stool metoprolol tartrate 25 mg tablet 25 mg PO BID 11/03/24 11/14/24 His tory sotalol 80 mg tablet 80 mg PO BID 11/14/24 11/14/24 His tory Have you fallen in the past year?: No [facility] Medical History Dyspnea on exertion Shortness of breath Paroxysmal atrial fibrillation Non-rheumatic aortic stenosis Essential (primary) hypertension Sick sinus syndrome SA node dysfunction Diabetes mellitus, type II HLD (hyperlipide (more content not included)... Normal [facility] 12 Lead EKGon 11-03-2024 12 Lead EKG [facility] [address] [place] [address] 12 Lead EKG 11/03/24 1049 MR#: [id number] Acct: [id number] Name: CLARI STEPHENS Rep #: [id number] : 1950 74 From: Rubio Blanc MD Attending Dr: Status: DEP ER Ordering Dr: Jani Hale DO Date: 11/03/24 Location: ED Sex: F C Admitted: Test Reason : AFIB/SOB Blood Pressure : */* mmHG Vent. Rate : 62 BPM Atrial Rate : 62 BPM P-R Int : 290 ms QRS Dur : 158 ms QT Int : 438 ms P-R-T Axes : 27 -28 128 degrees QTcB Int : 444 ms Atrial-paced rhythm with prolonged AV conduction Left bundle branch block Abnormal ECG Confirmed by RUBIO BLANC MD ([id number]), assignment editor SALOMÓN KAUFMAN ([id number]) on 11/04/2024 9:34:47 AM Referred By: Confirmed By: RUBIO BLANC MD 11/04/24 0934 Date Rubio Blanc MD CC: Dr. Jani Hale, DO; Angela Manjarrez MD Signed Normal [facility] Absolute lymphocyte countOrd ered By: Jani Hale on 11-03-2024 Lymphocytes Auto (Unsp spec) [#/Vol] 1.90 10*3/uL 0.83-4.51 [facility] Absolute neutrophil countOrd ered By: Jani Hale on 11-03-2024 Neutrophils (Bld) [#/Vol] 5.5 10*3/uL 2.0-7.7 [facility] Anion gap in Serum or Plasma Ordered By: Jani Hale on 11-03-2024 Anion gap [Moles/Vol] 12 mmol/L 5-15 [facility] Automated lymphocyte count a s percentage of total leukocytesOrdered By: Jani Hale on 11-03-2024 Lymphocytes/100 WBC Auto (Unsp spec) 22.4 % 19-41 [facility] BUN/creatinine ratioOrdered By: Jani Hale on 11-03-2024 Urea nitrogen/Creatinine [Mass ratio] 21.5 mg/mg High 10-20 [facility] Basic Metabolic Profile (BMP )on 11-03-2024 BUN/CRE 21.5 RATIO High 10-20 [facility] Comment on above: Performed By: #### L 501.5200, L100.0100, L500.2500 #### [facility] [address] [place], [address] Calcium [Mass/Vol] 10.4 mg/dL Normal 7.6-11.0 [facility] Comment on above: Performed By: #### L 501.5200, L100.0100, L500.2500 #### [facility] [address] [place], [address] Chloride [Moles/Vol] 111 mmol/L High 98-108 [facility] Comment on above: Performed By: #### L 501.5200, L100.0100, L500.2500 #### [facility] [address] [place], [address] CO2 [Moles/Vol] 18.6 mmol/L Low 21.0-32.0 [facility] Comment on above: Performed By: #### L 501.5200, L100.0100, L500.2500 #### [facility] [address] [place], [address] Creatinine [Mass/Vol] 0.98 mg/dL Normal 0.70-1.20 [facility] Comment on above: Performed By: #### L 501.5200, L100.0100, L500.2500 #### [facility] [address] [place], [address] ECRCL 58.58 ml/min Normal 50-250 [facility] Comment on above: Performed By: #### L 501.5200, L100.0100, L500.2500 #### [facility] [facility] [address] [place], [address] GAP 12 Normal 5-15 [facility] Comment on above: Performed By: #### L 501.5200, L100.0100, L500.2500 #### [facility] [address] [place], [address] GFR/1.73 sq M.predicted among non-blacks MDRD (S/P/Bld) [Vol rate/Area] 60 mL/min/{1.73_m2} Normal >60 [facility] Comment on above: Result Comment: mL/m in/1.73m2 CKD-EPI Creatinine Equation (2020) Performed By: #### L 501.5200, L100.0100, L500.2500 #### [facility] [address] [place], [address] Glucose [Mass/Vol] 91 mg/dL Normal 70-99 [facility] Comment on above: Performed By: #### L 501.5200, L100.0100, L500.2500 #### [facility] [address] [place], [address] Potassium [Moles/Vol] 4.6 mmol/L Normal 3.3-5.1 [facility] Comment on above: Result Comment: Hemo lysis present, Results??could be affected. ?? Performed By: #### L 501.5200, L100.0100, L500.2500 #### [facility] [address] [place], [address] Sodium [Moles/Vol] 141 mmol/L Normal 133-145 [facility] Comment on above: Performed By: #### L 501.5200, L100.0100, L500.2500 #### [facility] [address] [place], [address] Urea nitrogen [Mass/Vol] 21 mg/dL High 4-19 [facility] Comment on above: Performed By: #### L 501.5200, L100.0100, L500.2500 #### [facility] [address] [place], [address] Basophil percentageOrdered B y: Jani Alexia on 11-03-2024 Basophils/100 WBC (Bld) 0.5 % 0-1 [facility] CBC W/Diff, Automatedon 04-0 Absolute Lymph 1.90 X10 3/uL Normal 0.83-4.51 [facility] Comment on above: Performed By: #### L 501.5200, L100.0100, L500.2500 #### [facility] [address] [place], [address] Absolute Neut 5.5 X10 3/uL Normal 2.0-7.7 [facility] Comment on above: Performed By: #### L 501.5200, L100.0100, L500.2500 #### [facility] [address] [place], [address] Basophils/100 WBC (Bld) 0.5 % Normal 0-1 [facility] Comment on above: Performed By: #### L 501.5200, L100.0100, L500.2500 #### [facility] [address] [place], [address] Eosinophils/100 WBC (Bld) 1.9 % Normal 0-5 [facility] Comment on above: Performed By: #### L 501.5200, L100.0100, L500.2500 #### [facility] [address] [place], [address] Erythrocyte distribution width (RBC) [Ratio] 16.5 % High 11.6-14.6 [facility] Comment on above: Performed By: #### L 501.5200, L100.0100, L500.2500 #### [facility] [address] [place], [address] Hematocrit (Bld) [Volume fraction] 37.3 % Normal 37-47 [facility] Comment on above: Performed By: #### L 501.5200, L100.0100, L500.2500 #### [facility] [address] [place], [address] Hemoglobin (Bld) [Mass/Vol] 11.8 g/dL Low 12.0-15.0 [facility] Comment on above: Performed By: #### L 501.5200, L100.0100, L500.2500 #### [facility] [address] [place], [address] IG% 0.400 Normal 0.0-0.9 [facility] Comment on above: Result Comment: IG% - Immature Granulocytes (promyelocytes, myelocytes and metamyelocytes) > 1% indicates that a LEFT SHIFT is Present. Performed By: #### L 501.5200, L100.0100, L500.2500 #### [facility] [address] [place], [address] Lymphocytes/100 WBC (Bld) 22.4 % Normal 19-41 [facility] Comment on above: Performed By: #### L 501.5200, L100.0100, L500.2500 #### [facility] [address] [place], [address] MCH (RBC) [Entitic mass] 29.1 pg Normal 27.0-32.0 [facility] Comment on above: Performed By: #### L 501.5200, L100.0100, L500.2500 #### [facility] [address] [place], [address] MCHC (RBC) [Mass/Vol] 31.6 g/dL Low 32-36 [facility] Comment on above: Performed By: #### L 501.5200, L100.0100, L500.2500 #### [facility] [address] [place], [address] MCV (RBC) [Entitic vol] 92.1 fL Normal 81-99 [facility] Comment on above: Performed By: #### L 501.5200, L100.0100, L500.2500 #### [facility] [address] [place], [address] Monocytes/100 WBC (Bld) 10.1 % High 0-10 [facility] Comment on above: Performed By: #### L 501.5200, L100.0100, L500.2500 #### [facility] [address] [place], [address] Neutrophils/100 WBC (Bld) 64.7 % Normal 47-70 [facility] Comment on above: Performed By: #### L 501.5200, L100.0100, L500.2500 #### [facility] [address] [place], [address] Nucleated RBC (Bld) [#/Vol] 0 10*3/uL Normal 0-5 [facility] Comment on above: Performed By: #### L 501.5200, L100.0100, L500.2500 #### [facility] [address] [place], [address] Platelet mean volume (Bld) [Entitic vol] 11.3 fL Normal 6.2-12.0 [facility] Comment on above: Performed By: #### L 501.5200, L100.0100, L500.2500 #### [facility] [address] [place], [address] Platelets (Bld) [#/Vol] 154 10*3/uL Normal 150-450 [facility] Comment on above: Performed By: #### L 501.5200, L100.0100, L500.2500 #### [facility] [address] [place], [address] RBC (Bld) [#/Vol] 4.05 10*6/uL Low 4.2-5.4 [facility] Comment on above: Performed By: #### L 501.5200, L100.0100, L500.2500 #### [facility] [address] [place], [address] RDW SD 55.5 fl High 35.1-43.9 [facility] Comment on above: Performed By: #### L 501.5200, L100.0100, L500.2500 #### [facility] [address] [place], [address] WBC (Bld) [#/Vol] 8.5 10*3/uL Normal 4.4-11.0 [facility] Comment on above: Performed By: #### L 501.5200, L100.0100, L500.2500 #### [facility] [address] [place], [place], [address] Carbon dioxide, total [Moles /volume] in Central venous bloodOrdered By: Jani Hale on 11-03-2024 CO2 [Moles/Vol] 18.6 mmol/L Low 21.0-32.0 [facility] Chest 1 View (Portable)on Chest 1 View (Portable) [facility] Imaging Services [address] [place] [address] Chest 1 View (Portable) MR#: [id number] Acct: [id number] Name: CLARI STEPHENS Rep #: [id number] : 1950 F 74 From: Mike rivera MD PCP: Angela Manjarrez MD Status: REG ER Study: Chest 1 View (Portable) Date of Exam: 11/03/24 Exam# [id number] Ordering Dr: Jani Hale DO PROCEDURE: CHEST 1 VIEW (PORTABLE) 11/03/2024 REASON FOR EXAM: PALPI History of atrial fibrillation. TECHNIQUE: Frontal view of the chest. COMPARISON: None FINDINGS: Hardware: EKG electrodes. Left-sided dual-chamber pacemaker. Midline sternotomy. Heart: The heart size is normal. Lungs: The lungs are clear. Bones: Degenerative changes are identified within the thoracic spine. Other: RAD/Chest 1 View (Portable) IMPRESSION: No Acute Findings. Reading Location: [facility]- CC: Dr. Jani Hale DO; Angela Manjarrez MD Shank Archer: Signed Normal [facility] Chloride assayOrdered By: Michoacano Hale on 11-03-2024 Chloride [Moles/Vol] 111 mmol/L High 98-108 [facility] Emergency Department Summary on 11-03-2024 Emergency Department Summary [facility] Medical Records Department [address] [place] [address] Emergency Department Summary 11/03/24 MR#: [id number] Acct: [id number] Name: CLARI STEPHENS Nolberto Rep #: [id number] : 1950 74 From: Jani Mejia PCP: Angela Manjarrez MD Status:DEP ER Location: ED HPI History of Present Illness Chief Complaint: Palpitations Informant: patient and friend Narrative Narrative: Presents by EMS from home intermittent palpitations short of breath lightheaded symptoms with intermittent dizziness. IV negative history of atrial fibrillation and on Eliquis and sotalol. Her daughter pacemaker is placed to becoming bradycardic followed by Dr. States she has had 4 different episodes Jayashree. Since October she called her PCP had a Holter monitor for 24 hours last week. The reason why denies cough. Denies recent vomiting or diarrhea. They reported there was runs of heart rate going fast was told to monitor. Occasional spinning which has resolved history of vertigo. Prior similar symptoms: Yes [facility] Medical History Dyspnea on exertion Shortness of breath Paroxysmal atrial fibrillation Non-rheumatic aortic stenosis Essential (primary) hypertension Sick sinus syndrome SA node dysfunction Diabetes mellitus, type II HLD (hyperlipidemia) Asthma GERD (gastroesophageal reflux disease) Carpal tunnel syndrome Pneumonia Lichen planus Type 2 diabetes mellitus GERD (gastroesophageal reflux disease) Cough Asthma, moderate persistent Asthma with acute exacerbation Seasonal allergies Bradycardia Home Medications ???Medication ???Instructions ???Recorded ???Last Taken ???Type pravastatin 40 mg tablet 40 mg PO QHS CHOLESTEROL 09/06/16 01/13/19 History clobetasol 0.025 % topical cream 1 applic topical DAILY 07/02/21 Un known History estradiol 0.01% (0.1 mg/gram) 1 applic vaginal .COMPLEX 07/02/21 Unknown History vaginal cream fluticasone furoate 200 1 inh inhalation DAILY #60 ea 08/03 Unknown Rx mcg-vilanterol 25 mcg/dose inhalation powder (Breo Ellipta) sotalol 80 mg tablet 80 mg PO BID HEART #180 tabs 01/06 Unknown Rx acetaminophen 500 mg capsule 500 mg PO Q6H PRN fever or pain Unknown History famotidine 40 mg tablet 40 mg PO DAILY 03/27/22 Unknown Hi story nystatin 100,000 unit/gram topical 1 applic topical TID 03/27/22 Un known History powder sennosides 8.6 mg tablet (Senokot) 8.6 mg PO DAILY 03/27/22 Unknown History glipizide 2.5 mg tablet, extended 2.5 mg PO DAILY 09/26/22 Unknown History release 24 hr loratadine 10 mg tablet (Claritin) 10 mg PO DAILY 09/26/22 Unknown History apixaban 5 mg tablet (Eliquis) 5 mg PO BID #60 tabs 12/10/22 Unkn own Rx albuterol sulfate 90 mcg/actuation 2 puff inhalation Q6H PRN Unknown History aerosol inhaler shortness of breath or wheezing cholecalciferol (vitamin D3) 50 50 mcg PO DAILY 12/02/23 Unknown H istory mcg (2,000 unit) tablet fluticasone furoate 200 1 inh inhalation DAILY 12/02/23 Un known History mcg-vilanterol 25 mcg/dose inhalation powder magnesium hydroxide 400 mg/5 mL 30 ml PO DAILY PRN constipation Unknown History oral suspension (Milk of Magnesia) meclizine 25 mg tablet 25 mg PO Q6H PRN Dizziness 4 Unknown History tizanidine 2 mg tablet 2 mg PO BID PRN muscle spasticity 12/02/23 Unknown History aluminum-magnesium hydroxide 225 30 ml PO Q4H PRN PRN gi distress 1 08/16/23 Unknown History mg-200 mg/5 mL oral suspension guaifenesin 100 mg/5 mL oral 200 mg PO Q6H PRN cough 11/03/24 U nknown History liquid (Adult Tussin Chest Congestion) lisinopril 20 mg tablet 20 mg PO BID 11/03/24 Unknown Hist ory loperamide 2 mg capsule See Rx Instructions PO .COMPLEX Unknown History (Anti-Diarrheal (loperamide)) PRN loose stool metoprolol tartrate 25 mg tablet 25 mg PO BID 11/03/24 Unknown Hist ory Allergy/AdvReac Type Severity Reaction Status Date / Time Penicillins Allergy Shortness Verified 06/16/24 13:49 of breath Family History Mother Diabetes Aunt Breast cancer Father Cancer Surgical History History of aortic valve replacement with bioprosthetic valve ( 01/25/13) Presence of permanent cardiac pacemaker (01/07/19) H/O aortic valve replacement Hx of cataract extraction H/O aortic valve replacement S/P surgical removal of pilonidal cyst History of tonsillectomy Social History Smoking Status: Never smoker alcohol intake: never substance use type: does not use caffeine: Yes (Occasionally) Type: carbonated beverages and tea ROS ROS ED (more content not included)... Normal [facility] Eosinophil percentageOrdered By: Jani Hale on 11-03-2024 Eosinophils/100 WBC (Bld) 1.9 % 0-5 [facility] Erythrocyte distribution wid th (RBC) [Ratio]Ordered By: Jani Hale on 11-03-2024 Erythrocyte distribution width (RBC) [Entitic vol] 55.5 fL High 35.1-43.9 [facility] Erythrocyte distribution wid th ratioOrdered By: Jani Hale on 11-03-2024 Erythrocyte distribution width (RBC) [Ratio] 16.5 % High 11.6-14.6 [facility] Erythrocyte distribution wid th standard deviationOrdered By: Jani Hale on 11-03-2024 Erythrocyte distribution width (RBC) [Ratio] 55.5 fl High 35.1-43.9 [facility] Estimation of creatinine davina aranceOrdered By: Jani Hale on 11-03-2024 Estimated Creatinine Clearance Calc 58.58 ml/min 50-250 [facility] GFR/1.73 sq M.predicted raul g non-blacks MDRD (S/P/Bld) [Vol rate/Area]Ordered By: Jani Hale on 11-03-2024 Estimated GFR (MDRD) Non-Af Amer 60 >60 [facility] Comment on above: mL/min/1.73m2 CKD-EP I Creatinine Equation (2020) Glomerular filtration rate ( GFR) estimation/1.73 sq m using serum, plasma, or whole bOrdered By: Jani Hale on 11-03-2024 GFR/1.73 sq M.predicted among non-blacks MDRD (S/P/Bld) [Vol rate/Area] 60 mL/min/{1.73_m2} >60 [facility] Comment on above: mL/min/1.73m2 CKD-EP I Creatinine Equation (2020) Hematocrit Auto (Bld) [Volum e fraction]Ordered By: Jani Hale on 11-03-2024 Hematocrit (Bld) [Volume fraction] 37.3 % 37-47 [facility] Hemoglobin measurementOrdere d By: Jani Hale on 11-03-2024 Hemoglobin (Bld) [Mass/Vol] 11.8 g/dL Low 12.0-15.0 [facility] Immature granulocytes/100 WB C Auto (Bld)Ordered By: Jani Hale on 11-03-2024 Immature granulocytes/100 WBC (Bld) 0.400 % 0.0-0.9 [facility] Comment on above: IG% - Immature Granu locytes (promyelocytes, myelocytes and metamyelocytes) > 1% indicates that a LEFT SHIFT is Present. Lymphocytes Auto (Unsp spec) [#/Vol]Ordered By: Jani Hale on 11-03-2024 Lymphocytes (Bld) [#/Vol] 1.90 10*3/uL 0.83-4.51 [facility] Lymphocytes/100 WBC Auto (Un sp spec)Ordered By: Jani Hale on 11-03-2024 Lymphocytes/100 WBC (Bld) 22.4 % 19-41 [facility] MCV (mean corpuscular volume ) determinationOrdered By: Jani Hale on 11-03-2024 MCV (RBC) [Entitic vol] 92.1 fL 81-99 [facility] Magnesiumon 11-03-2024 Magnesium [Mass/Vol] 2.2 mg/dL Normal 1.5-2.2 [facility] Comment on above: Performed By: #### L 501.5200, L100.0100, L500.2500 #### [facility] [address] [place] [address], [address] Magnesium (Unsp spec) [Mass/ Vol]Ordered By: Jani Hale on 11-03-2024 Magnesium [Mass/Vol] 2.2 mg/dL 1.5-2.2 [facility] Magnesium measurement (mass/ volume)Ordered By: Jani Hale on 11-03-2024 Magnesium (Unsp spec) [Mass/Vol] 2.2 mg/dL 1.5-2.2 [facility] Mean corpuscular hemoglobin (MCH) determinationOrdered By: Jani Hale on 11-03-2024 MCH (RBC) [Entitic mass] 29.1 pg 27.0-32.0 [facility] Mean corpuscular hemoglobin concentration (MCHC) determinationOrdered By: Jani Hale on 11-03-2024 MCHC (RBC) [Mass/Vol] 31.6 g/dL Low 32-36 [facility] Mean platelet volume determi nationOrdered By: Jani Hale on 11-03-2024 Platelet mean volume (Bld) [Entitic vol] 11.3 fL 6.2-12.0 [facility] Monocyte percentageOrdered B y: Jani Hale on 11-03-2024 Monocytes/100 WBC (Bld) 10.1 % High 0-10 [facility] Neutrophil percentageOrdered By: Jani Hale on 11-03-2024 Neutrophils/100 WBC (Bld) 64.7 % 47-70 [facility] Nucleated red blood cell per centageOrdered By: Jani Hale on 11-03-2024 Nucleated RBC/100 WBC (Bld) [Ratio] 0 % 0-5 [facility] Platelet countOrdered By: Michoacano Hale on 11-03-2024 Platelets (Bld) [#/Vol] 154 10*3/uL 150-450 [facility] Potassium (Unsp spec) [Mass/ Vol]Ordered By: Jani Hale on 11-03-2024 Potassium [Moles/Vol] 4.6 mmol/L 3.3-5.1 [facility] Comment on above: Hemolysis present, R esults could be affected. Potassium measurement (mass/ volume)Ordered By: Jani Hale on 11-03-2024 Potassium (Unsp spec) [Mass/Vol] 4.6 mmol/L 3.3-5.1 [facility] Comment on above: Hemolysis present, R esults could be affected. RBC Auto (Bld) [#/Vol]Ordere d By: Jani Hale on 11-03-2024 RBC (Bld) [#/Vol] 4.05 10*6/uL Low 4.2-5.4 [facility] Serum creatinine measurement (mass/volume)Ordered By: Jani Hale on 11-03-2024 Creatinine [Mass/Vol] 0.98 mg/dL 0.70-1.20 [facility] Serum glucose measurement (m ass/volume)Ordered By: Jani Hale on 11-03-2024 Glucose [Mass/Vol] 91 mg/dL 70-99 [facility] Serum or plasma calcium jia urement (mass/volume)Ordered By: Jani Hale on 11-03-2024 Calcium [Mass/Vol] 10.4 mg/dL 7.6-11.0 [facility] Serum or plasma urea nitroge n measurement (mass/volume)Ordered By: Jani Hale on 11-03-2024 Urea nitrogen [Mass/Vol] 21 mg/dL High 4-19 [facility] Sodium levelOrdered By: Jani Hale on 11-03-2024 Sodium [Moles/Vol] 141 mmol/L 133-145 [facility] White blood cell (WBC) count Ordered By: Jani Hale on 11-03-2024 WBC (Bld) [#/Vol] 8.5 10*3/uL 4.4-11.0 [facility] Absolute lymphocyte countOrd ered By: Angela Manjarrez on 08-25-2024 Lymphocytes Auto (Unsp spec) [#/Vol] 2.14 10*3/uL 0.83-4.51 [facility] Absolute neutrophil countOrd ered By: Angela Manjarrez on 08-25-2024 Neutrophils (Bld) [#/Vol] 3.9 10*3/uL 2.0-7.7 [facility] Albumin to globulin ratioOrd ered By: Angela Manjarrez on 08-25-2024 Albumin/Globulin [Mass ratio] 0.9 {ratio} 0.9-2.4 [facility] Automated lymphocyte count a s percentage of total leukocytesOrdered By: Angela Manjarrez on 08-25-2024 Lymphocytes/100 WBC Auto (Unsp spec) 30.9 % 19-41 [facility] Basophil percentageOrdered B y: Angela Manjarrez on 08-25-2024 Basophils/100 WBC (Bld) 0.7 % 0-1 [facility] Bilirubin, totalOrdered By: Angela Manjarrez on 08-25-2024 Bilirubin [Mass/Vol] 0.40 mg/dL 0.20-1.00 [facility] Comment on above: For patients on eltr ombopag therapy, use of Dimension [place] TBIL is not recommended. Blood urea nitrogen (BUN)/cr eatinine ratioOrdered By: Angela Manjarrez on 08-25-2024 Urea nitrogen/Creatinine [Mass ratio] 19.5 mg/mg 10- [facility] CBC W/Diff, Automatedon 08-04 Absolute Lymph 2.14 X10 3/uL Normal 0.83-4.51 [facility] Comment on above: Order Comment: 114 Performed By: #### L 501.5200, L100.0100, L500.2500 #### [facility] [address] [place], [address] Absolute Neut 3.9 X10 3/uL Normal 2.0-7.7 [facility] Comment on above: Order Comment: 114 Performed By: #### L 501.5200, L100.0100, L500.2500 #### [facility] [address] [place], [address] Basophils/100 WBC (Bld) 0.7 % Normal 0-1 [facility] Comment on above: Order Comment: 114 Performed By: #### L 501.5200, L100.0100, L500.2500 #### [facility] [address] [place], [address] Eosinophils/100 WBC (Bld) 3.2 % Normal 0-5 [facility] Comment on above: Order Comment: 114 Performed By: #### L 501.5200, L100.0100, L500.2500 #### [facility] [address] [place], [address] Erythrocyte distribution width (RBC) [Ratio] 15.5 % High 11.6-14.6 [facility] Comment on above: Order Comment: 114 Performed By: #### L 501.5200, L100.0100, L500.2500 #### [facility] [address] [place], [address] Hematocrit (Bld) [Volume fraction] 36.9 % Low 37-47 [facility] Comment on above: Order Comment: 114 Performed By: #### L 501.5200, L100.0100, L500.2500 #### [facility] [address] [place], [address] Hemoglobin (Bld) [Mass/Vol] 11.3 g/dL Low 12.0-15.0 [facility] Comment on above: Order Comment: 114 Performed By: #### L 501.5200, L100.0100, L500.2500 #### [facility] [address] [place], [address] IG% 0.400 Normal 0.0-0.9 [facility] Comment on above: Order Comment: 114 Result Comment: IG% - Immature Granulocytes (promyelocytes, myelocytes and metamyelocytes) > 1% indicates that a LEFT SHIFT is Present. Performed By: #### L 501.5200, L100.0100, L500.2500 #### [facility] [address] [place], [address] Lymphocytes/100 WBC (Bld) 30.9 % Normal 19-41 [facility] Comment on above: Order Comment: 114 Performed By: #### L 501.5200, L100.0100, L500.2500 #### [facility] [address] [place], [address] MCH (RBC) [Entitic mass] 28.3 pg Normal 27.0-32.0 [facility] Comment on above: Order Comment: 114 Performed By: #### L 501.5200, L100.0100, L500.2500 #### [facility] [address] [place], [address] MCHC (RBC) [Mass/Vol] 30.6 g/dL Low 32-36 [facility] Comment on above: Order Comment: 114 Performed By: #### L 501.5200, L100.0100, L500.2500 #### [facility] [address] [place], [address] MCV (RBC) [Entitic vol] 92.3 fL Normal 81-99 [facility] Comment on above: Order Comment: 114 Performed By: #### L 501.5200, L100.0100, L500.2500 #### [facility] [address] [place], [address] Monocytes/100 WBC (Bld) 8.4 % Normal 0-10 [facility] Comment on above: Order Comment: 114 Performed By: #### L 501.5200, L100.0100, L500.2500 #### [facility] [address] [place], [address] Neutrophils/100 WBC (Bld) 56.4 % Normal 47-70 [facility] Comment on above: Order Comment: 114 Performed By: #### L 501.5200, L100.0100, L500.2500 #### [facility] [address] [place], [address] Nucleated RBC (Bld) [#/Vol] 0 10*3/uL Normal 0-5 [facility] Comment on above: Order Comment: 114 Performed By: #### L 501.5200, L100.0100, L500.2500 #### [facility] [address] [place], [address] Platelet mean volume (Bld) [Entitic vol] 11.8 fL Normal 6.2-12.0 [facility] Comment on above: Order Comment: 114 Performed By: #### L 501.5200, L100.0100, L500.2500 #### [facility] [address] [place], [address] Platelets (Bld) [#/Vol] 166 10*3/uL Normal 150-450 [facility] Comment on above: Order Comment: 114 Performed By: #### L 501.5200, L100.0100, L500.2500 #### [facility] [address] [place], [address] RBC (Bld) [#/Vol] 4.00 10*6/uL Low 4.2-5.4 [facility] Comment on above: Order Comment: 114 Performed By: #### L 501.5200, L100.0100, L500.2500 #### [facility] [address] [place], [address] RDW SD 52.6 fl High 35.1-43.9 [facility] Comment on above: Order Comment: 114 Performed By: #### L 501.5200, L100.0100, L500.2500 #### [facility] [address] [place], [address] WBC (Bld) [#/Vol] 6.9 10*3/uL Normal 4.4-11.0 [facility] Comment on above: Order Comment: 114 Performed By: #### L 501.5200, L100.0100, L500.2500 #### [facility] [address] [place], [address] Carbon dioxide measurementOr dered By: Angela Manjarrez on 08-25-2024 CO2 [Moles/Vol] 22.0 mmol/L 21.0-32.0 [facility] Chloride measurementOrdered By: Angela Manjarrez on 08-25-2024 Chloride [Moles/Vol] 113 mmol/L High 98-107 [facility] Comprehensive Metabolic Prof ilon 08-25-2024 Albumin [Mass/Vol] 3.0 g/dL Low 3.2-5.0 [facility] Comment on above: Order Comment: 114 Performed By: #### L 501.5200, L100.0100, L500.2500 #### [facility] [address] [place], [address] Albumin/Globulin [Mass ratio] 0.9 {ratio} Normal 0.9-2.4 [facility] Comment on above: Order Comment: 114 Performed By: #### L 501.5200, L100.0100, L500.2500 #### [facility] [address] [place], [address] ALK P 99 U/L Normal 45-117 [facility] Comment on above: Order Comment: 114 Performed By: #### L 501.5200, L100.0100, L500.2500 #### [facility] [address] [place], [address] ALT [Catalytic activity/Vol] 26 U/L Normal 13-56 [facility] Comment on above: Order Comment: 114 Performed By: #### L 501.5200, L100.0100, L500.2500 #### [facility] [address] [place], [address] AST [Catalytic activity/Vol] 22 U/L Normal 15-37 [facility] Comment on above: Order Comment: 114 Performed By: #### L 501.5200, L100.0100, L500.2500 #### [facility] [address] [place], [address] Bilirubin [Mass/Vol] 0.40 mg/dL Normal 0.20-1.00 [facility] Comment on above: Order Comment: 114 Result Comment: For patients on eltrombopag therapy, use of Dimension [place] TBIL is not recommended. Performed By: #### L 501.5200, L100.0100, L500.2500 #### [facility] [address] [place], [address] BUN/CRE 19.5 RATIO Normal 10-20 [facility] Comment on above: Order Comment: 114 Performed By: #### L 501.5200, L100.0100, L500.2500 #### [facility] [address] [place], [address] CA,Total 9.6 mg/dL Normal 8.5-10.1 [facility] Comment on above: Order Comment: 114 Performed By: #### L 501.5200, L100.0100, L500.2500 #### [facility] [address] [place], [address] Chloride [Moles/Vol] 113 mmol/L High 98-107 [facility] Comment on above: Order Comment: 114 Performed By: #### L 501.5200, L100.0100, L500.2500 #### [facility] [address] [place], [address] CO2 [Moles/Vol] 22.0 mmol/L Normal 21.0-32.0 [facility] Comment on above: Order Comment: 114 Performed By: #### L 501.5200, L100.0100, L500.2500 #### [facility] [address] [place], [address] Creatinine [Mass/Vol] 0.97 mg/dL Normal 0.55-1.02 [facility] Comment on above: Order Comment: 114 Result Comment: The validity of the calculated GFR GFRAA in patients over 70 years has not been determined. Clinical correlation is essential. Performed By: #### L 501.5200, L100.0100, L500.2500 #### [facility] [address] [place], [address] EST GFR - AA 71 mL/min Normal >60 [facility] Comment on above: Order Comment: 114 Result Comment: Afri can Greek GFR Calc Performed By: #### L 501.5200, L100.0100, L500.2500 #### [facility] [address] [place], [address] GAP 7 Normal 5-15 [facility] Comment on above: Order Comment: 114 Performed By: #### L 501.5200, L100.0100, L500.2500 #### [facility] [address] [place], [address] GFR/1.73 sq M.predicted among non-blacks MDRD (S/P/Bld) [Vol rate/Area] 59 mL/min/{1.73_m2} Low >60 [facility] Comment on above: Order Comment: 114 Result Comment: Non- GFR Calc Performed By: #### L 501.5200, L100.0100, L500.2500 #### [facility] [address] [place], [address] Globulin (S) [Mass/Vol] 3.4 g/dL Normal 2.2-4.2 [facility] Comment on above: Order Comment: 114 Performed By: #### L 501.5200, L100.0100, L500.2500 #### [facility] [address] [place], [address] Glucose [Mass/Vol] 108 mg/dL High 74-106 [facility] Comment on above: Order Comment: 114 Result Comment: Fast ing Glucose result from 100 to 125 mg/dL suggests IMPAIRED HOMEOSTASIS per A.D.A. criteria. Performed By: #### L 501.5200, L100.0100, L500.2500 #### [facility] [address] [place], [address] Potassium [Moles/Vol] 4.2 mmol/L Normal 3.5-5.1 [facility] Comment on above: Order Comment: 114 Performed By: #### L 501.5200, L100.0100, L500.2500 #### [facility] [address] [place], [address] Sodium [Moles/Vol] 142 mmol/L Normal 136-145 [facility] Comment on above: Order Comment: 114 Performed By: #### L 501.5200, L100.0100, L500.2500 #### [facility] [address] [place], [address] T PROT 6.4 g/dL Normal 6.4-8.2 [facility] Comment on above: Order Comment: 114 Performed By: #### L 501.5200, L100.0100, L500.2500 #### [facility] [address] [place], [address] Urea nitrogen [Mass/Vol] 19 mg/dL High 7-18 [facility] Comment on above: Order Comment: 114 Performed By: #### L 501.5200, L100.0100, L500.2500 #### [facility] [address] [place], [address] Eosinophil percentageOrdered By: Angela Manjarrez on 08-25-2024 Eosinophils/100 WBC (Bld) 3.2 % 0-5 [facility] Erythrocyte distribution wid th ratioOrdered By: Angela Manajrrez on 08-25-2024 Erythrocyte distribution width (RBC) [Ratio] 15.5 % High 11.6-14.6 [facility] Erythrocyte distribution wid th standard deviationOrdered By: Angela Manjarrez on 08-25-2024 Erythrocyte distribution width (RBC) [Entitic vol] 52.6 fL High 35.1-43.9 [facility] Erythrocyte distribution width (RBC) [Ratio] 52.6 fl High 35.1-43.9 [facility] Estimated glomerular filtrat ion rate (GFR) AmericanOrdered By: Angela Manjarrez on 08-25-2024 Estimated GFR (MDRD) Amer 71 mL/min >60 [facility] Comment on above: GFR Calc Glomerular filtration rate ( GFR) estimationOrdered By: Angela Manjarrez on 08-25-2024 Estimated GFR (MDRD) Non-Af Amer 59 mL/min Low >60 [place] [facility] Comment on above: Non- GFR Calc GFR/1.73 sq M.predicted among non-blacks MDRD (S/P/Bld) [Vol rate/Area] 59 mL/min/{1.73_m2} Low >60 [facility] Comment on above: Non- GFR Calc Glucose measurementOrdered B y: Angela Manjarrez on 08-25-2024 Glucose [Mass/Vol] 108 mg/dL High 74-106 [facility] Comment on above: Fasting Glucose resu lt from 100 to 125 mg/dL suggests IMPAIRED HOMEOSTASIS per A.D.A. criteria. Hematocrit Auto (Bld) [Volum e fraction]Ordered By: Angela Manjarrez on 08-25-2024 Hematocrit (Bld) [Volume fraction] 36.9 % Low 37-47 [facility] Hemoglobin A1con 08-25-2024 HbA1c (Bld) [Mass fraction] 6.0 % High 3.8-5.6 [facility] Comment on above: Order Comment: 114 Result Comment: Norm al < 5.7 % Prediabetic 5.7 - 6.4 % Diabetic >or= 6.5 % Please note range changes. Performed By: #### L 501.5200, L100.0100, L500.2500 #### [facility] [address] [place], [place], [address] Hemoglobin A1c percentageOrd ered By: Angela Manjarrez on 08-25-2024 HbA1c (Bld) [Mass fraction] 6.0 % High 3.8-5.6 [facility] Comment on above: Normal < 5.7 % Predi abetic 5.7 - 6.4 % Diabetic >or= 6.5 % Please note range changes. Hemoglobin measurementOrdere d By: Angela Manjarrez on 08-25-2024 Hemoglobin (Bld) [Mass/Vol] 11.3 g/dL Low 12.0-15.0 [facility] High density lipoprotein (HD L) measurementOrdered By: Angela Manjarrez on 08-25-2024 Cholesterol in HDL [Mass/Vol] 48 mg/dL >40 [facility] Comment on above: The drugs N-Acetylcy steine and Metamizole may falsely depress this assay. Reference Range HDL <40 mg/dL Low HDL Cholesterol HDL >or= 60 mg/dL High HDL Cholesterol Immature granulocytes/100 WB C Auto (Bld)Ordered By: Angela Manjarrez on 08-25-2024 Immature granulocytes/100 WBC (Bld) 0.400 % 0.0-0.9 [facility] Comment on above: IG% - Immature Granu locytes (promyelocytes, myelocytes and metamyelocytes) > 1% indicates that a LEFT SHIFT is Present. Laboratory - Chemistry and C hemistry - challengeOrdered By: Angela Manjarrez on 08-25-2024 AST [Catalytic activity/Vol] 22 U/L 15-37 [facility] Lipid Profileon 08-25-2024 Cholesterol [Mass/Vol] 144 mg/dL Normal 200 [facility] Comment on above: Order Comment: 114 Result Comment: <200 mg/dL Desirable 200-240 mg/dL Borderline >240 mg/dL High Risk Performed By: #### L 501.5200, L100.0100, L500.2500 #### [facility] [address] [place], [address] Cholesterol in HDL [Mass/Vol] 48 mg/dL Normal [facility] Comment on above: Order Comment: 114 Result Comment: The drugs N-Acetylcysteine and Metamizole may falsely depress this assay. Reference Range HDL <40 mg/dL Low HDL Cholesterol HDL >or= 60 mg/dL High HDL Cholesterol Performed By: #### L 501.5200, L100.0100, L500.2500 #### [facility] [address] [place], [address] Cholesterol in LDL [Mass/Vol] 72 mg/dL Normal 0-130 [facility] Comment on above: Order Comment: 114 Performed By: #### L 501.5200, L100.0100, L500.2500 #### [facility] [address] [place], [address] Cholesterol in VLDL [Mass/Vol] 24 mg/dL Normal 5-40 [facility] Comment on above: Order Comment: 114 Performed By: #### L 501.5200, L100.0100, L500.2500 #### [facility] [address] [place], [address] Triglyceride [Mass/Vol] 120 mg/dL Normal [facility] Comment on above: Order Comment: 114 Result Comment: The drugs N-Acetylcysteine and Metamizole may falsely depress this assay. Serum Triglycerides Reference Interval Normal <150 mg/dL Borderline high 150 - 199 mg/dL High 200 - 499 mg/dL Very High > or = 500 mg/dL Performed By: #### L 501.5200, L100.0100, L500.2500 #### [facility] [address] [facility] [address] [place], [place], [id number] Low density lipoprotein (LDL ) cholesterol measurementOrdered By: Angela Manjarrez on 08-25-2024 Cholesterol in LDL [Mass/Vol] 72 mg/dL 0-130 [facility] Lymphocytes Auto (Unsp spec) [#/Vol]Ordered By: Angela Manjarrez on 08-25-2024 Lymphocytes (Bld) [#/Vol] 2.14 10*3/uL 0.83-4.51 [facility] Lymphocytes/100 WBC Auto (Un sp spec)Ordered By: Angela Manjarrez on 08-25-2024 Lymphocytes/100 WBC (Bld) 30.9 % 19-41 [facility] MCV (mean corpuscular volume ) determinationOrdered By: Angela Manjarrez on 08-25-2024 MCV (RBC) [Entitic vol] 92.3 fL 81-99 [facility] Mean corpuscular hemoglobin (MCH) determinationOrdered By: Angela Manjarrez on 08-25-2024 MCH (RBC) [Entitic mass] 28.3 pg 27.0-32.0 [facility] Mean corpuscular hemoglobin concentration (MCHC) determinationOrdered By: Angela Manjarrez on 08-25-2024 MCHC (RBC) [Mass/Vol] 30.6 g/dL Low 32-36 [facility] Mean platelet volume determi nationOrdered By: Angela Manjarrez on 08-25-2024 Platelet mean volume (Bld) [Entitic vol] 11.8 fL 6.2-12.0 [facility] Monocyte percentageOrdered B y: Angela Manjarrez on 08-25-2024 Monocytes/100 WBC (Bld) 8.4 % 0-10 [facility] Neutrophil percentageOrdered By: Angela Manjarrez on 08-25-2024 Neutrophils/100 WBC (Bld) 56.4 % 47-70 [facility] Nucleated red blood cell per centageOrdered By: Angela Manjarrez on 08-25-2024 Nucleated RBC/100 WBC (Bld) [Ratio] 0 % 0-5 [facility] Platelet countOrdered By: Vincent Manjarrez on 08-25-2024 Platelets (Bld) [#/Vol] 166 10*3/uL 150-450 [facility] Potassium measurementOrdered By: Angela Manjarrez on 08-25-2024 Potassium [Moles/Vol] 4.2 mmol/L 3.5-5.1 [facility] RBC Auto (Bld) [#/Vol]Ordere d By: Angela Manjarrez on 08-25-2024 RBC (Bld) [#/Vol] 4.00 10*6/uL Low 4.2-5.4 [facility] Serum anion gap measurementO rdered By: Angela Manjarrez on 08-25-2024 Anion gap [Moles/Vol] 7 mmol/L 5-15 [facility] Serum globulin measurementOr dered By: Angela Manjarrez on 08-25-2024 Globulin (S) [Mass/Vol] 3.4 g/dL 2.2-4.2 [facility] Serum or plasma alanine an otransferase (ALT) measurementOrdered By: Angela Manjarrez on 08-25-2024 ALT [Catalytic activity/Vol] 26 U/L 13-56 [facility] Serum or plasma albumin jia urement (mass/volume)Ordered By: Angela Manjarrez on 08-25-2024 Albumin [Mass/Vol] 3.0 g/dL Low 3.2-5.0 [facility] Serum or plasma alkaline michael sphatase measurementOrdered By: Angela Manjarrez on 08-25-2024 ALP [Catalytic activity/Vol] 99 U/L 45-117 [facility] Serum or plasma calcium jia urement (mass/volume)Ordered By: Angela Manjarrez on 08-25-2024 Calcium [Mass/Vol] 9.6 mg/dL 8.5-10.1 [facility] Serum or plasma cholesterol measurement (mass/volume)Ordered By: Angela Manjarrez on 08-25-2024 Cholesterol [Mass/Vol] 144 mg/dL <200 [facility] Comment on above: <200 mg/dL Desirable 200-240 mg/dL Borderline >240 mg/dL High Risk Serum or plasma creatinine m easurement (mass/volume)Ordered By: Angela Manjarrez on 08-25-2024 Creatinine [Mass/Vol] 0.97 mg/dL 0.55-1.02 [facility] Comment on above: The validity of the calculated GFR & GFRAA in patients over 70 years has not been determined. Clinical correlation is essential. Serum or plasma thyroid stim ulating hormone (TSH) measurement (units/volume)Ordered By: Angela Manjarrez on 08-25-2024 TSH Qn 2.660 uIU/mL 0.358-3.740 [facility] Serum or plasma urea nitroge n measurement (mass/volume)Ordered By: Angela Manjarrez on 08-25-2024 Urea nitrogen [Mass/Vol] 19 mg/dL High 7-18 [facility] Sodium levelOrdered By: Brandyn Manjarrez on 08-25-2024 Sodium [Moles/Vol] 142 mmol/L 136-145 [facility] TSH QnOrdered By: Angela hair on 08-25-2024 Thyroid Stimulating Hormone (TSH) 2.660 uIU/mL 0.358-3.740 [facility] Thyroid Stim Hormone (TSH)on 08-25-2024 TSH 2.660 uIU/mL Normal 0.358-3.740 [facility] Comment on above: Order Comment: 114 Performed By: #### L 501.5200, L100.0100, L500.2500 #### [facility] [address] [place], [address] Total proteinOrdered By: Roxi Manjarrez on 08-25-2024 Protein [Mass/Vol] 6.4 g/dL 6.4-8.2 [facility] Triglycerides measurementOrd ered By: Angela Manjarrez on 08-25-2024 Triglyceride [Mass/Vol] 120 mg/dL <199 [facility] Comment on above: The drugs N-Acetylcy steine and Metamizole may falsely depress this assay.Serum Triglycerides Reference Interval Normal <150 mg/dL Borderline high 150 - 199 mg/dL High 200 - 499 mg/dL Very High > or = 500 mg/dL Very low density lipoprotein (VLDL) cholesterol measurementOrdered By: Angela Manjarrez on 08-25-2024 Very low density lipoprotein (VLDL) cholesterol measurement 24 mg/dL 5-40 [facility] VLDL Cholesterol 24 mg/dL 5-40 [facility] White blood cell (WBC) count Ordered By: Angela Manjarrez on 08-25-2024 WBC (Bld) [#/Vol] 6.9 10*3/uL 4.4-11.0 [facility] Echo Completeon 07-11-2024 Echo Complete [facility] [address] [place] [address] Echo Complete 07/11/24 1412 MR#: [id number] Acct: [id number] Name: CLARI STEPHENS Rep #: [id number] : 1950 74 From: Mark Dacosta MD Attending Dr: Dr. Mark Dacosta MD Status: REG CLI Ordering Dr: Mark Dacosta MD Date: 07/11/24 Location: [facility] Sex: F C Admitted: Reason For Study: Valve Replacement Procedure This was a 2D Doppler, Color Flow transthoracic echocardiogram. The study was technically difficult. Best parasternal images taken with patient in the supine position. Exam performed in department. Left Ventricle Mild concentric left ventricular hypertrophy. Normal LV size. The left ventricular ejection fraction is 60 %. Stage 2 diastolic dysfunction. Right Ventricle Mildly dilated right ventricle. Normal systolic function. Atria There is severe biatrial dilatation. ICD or pacer leads identified within the right atrium. Mitral Valve Moderate mitral annular calcification. Mild (1+) mitral valve insufficiency. Tricuspid Valve Mild (1+) tricuspid valve insufficiency. Right ventricular systolic pressure estimated to be 38 mmHg. Aortic Valve Bioprosthetic aortic valve mean peak gradient 33 mmHg. Pulmonic Valve The pulmonic valve is not well visualized. Mild (1+) pulmonic valve insufficiency. Great Vessels Normal sized aortic root. Pericardium/Pleural No pericardial effusion. MMode/2D Measurements Calculations LVIDd: 4.2 cm IVSd: 1.4 cm LVOT diam: 1.9 cm LVIDs: 3.0 cm LVPWd: 0.94 cm LVOT area: 2.8 cm2 RVDd: 4.4 cm FS: 30.1 % _ Ao root diam: 3.5 cm LAV(MOD-bp): 62.1 ml LA A4 area: 21.6 cm2 LAV(MOD-bp) Indexed: 30.5 ml/m2 LAV(MOD-sp2): 60.7 ml LAV(MOD-sp4): 62.6 ml _ LA dimension(2D): 4.0 cm TAPSE: 1.8 cm RA A4 area: 19.0 cm2 Time Measurements MV dec time: 0.19 sec Doppler Measurements Calculations MV E max ana lilia: 99.5 cm/sec Lat Peak E' Ana Lilia: 9.7 cm/sec Med Peak E' Ana Lilia: 4.6 cm/sec MV A max ana lilia: 110.3 cm/sec E/E' lat: 10.3 E/E' med: 21.7 MV E/A: 0.90 _ MV V2 max: 119.9 cm/sec MV P1/2t max ana lilia: 119.9 cm/sec Ao V2 max: 396.7 cm/sec MV max P.7 mmHg MV P1/2t: 68.7 msec Ao max P.1 mmHg MV V2 mean: 65.7 cm/sec MV dec slope: 511.3 cm/sec2 Ao V2 mean: 264.0 cm/sec MV mean P.1 mmHg Ao mean P.0 mmHg MV V2 VTI: 37.7 cm MVA(P1/2t): 3.2 cm2 Ao V2 VTI: 91.0 cm MVA(VTI): 1.5 cm2 AV (velocity ratio): 0.22 SPENCER(I,D): 0.64 cm2 SPENCER(V,D): 0.65 cm2 _ LV V1 max: 91.9 cm/sec MR max ana lilia: 446.4 cm/sec SV(LVOT): 57.8 ml LV V1 max P.4 mmHg MR max P.7 mmHg LV V1 mean P.8 mmHg LV V1 mean: 62.2 cm/sec LV V1 VTI: 20.5 cm _ PA V2 max: 83.4 cm/sec TR max ana lilia: 287.8 cm/sec PA V2 mean: 58.3 cm/sec TR max P.1 mmHg ECHO/Echo Complete Interpretation Summary The left ventricular ejection fraction is 60 %. Stage 2 diastolic dysfunction. Mildly dilated right ventricle. Mild (1+) mitral valve insufficiency. Mild (1+) tricuspid valve insufficiency. Right ventricular systolic pressure estimated to be 38 mmHg. Bioprosthetic aortic valve mean peak gradient 33 mmHg. This is increased from 23 mmHg gradient noted on study in 06/2023. Moderate aortic valve stenosis. Mild (1+) pulmonic valve insufficiency. Ordering Physician: Mark Dacosta Referring Physician: Mark Dacosta Performed By: Sorin Smith RCS 07/12/24 0812 Date Mark Dacosta MD CC: Dr. Mark Dacosta MD; Angela Manjarrez MD Date Dictated: 07/11/24 1412 Date Transcribed: 07/12/24 08 Shank Archer: Signed [facility]OVon 07-08-2024 [facility] Office Visit (PODIWS) CLARI STEPHENS ([id number]) 1950 F Date Time Provider Department 07/08/24 2:20 PM ZAHRA VAZQUEZ During your visit today, we recorded the following information about you: EdnaShania rebollarew 07/08/2024 2:33 PM Signed Last saw pcp: not in chart Subjective: Patient presents to clinic c/o painful toenails. They state that the nails are especially painful with shoe gear and pressure. Patient states that nails left 2nd and 3rd toenail is painful. Patient admits to being diabetic. No other pedal complaints at this time. Patient states no change in medications or medical history since last visit. Objective: Patient presents to clinic ambulating in avia tennis shoes Vasc: DP and PT pulses are palpable bilateral. CFT is less than 5 seconds bilateral. Skin temperature is warm to cool proximal to distal bilateral. There is no edema or varicosities noted. Neuro: Protective sensation is intact to the foot and toes when tested with the 5.07 SWM bilateral. Vibratory sensation is slight decreased at the hallux IPJ bilateral. The hallux is downgoing bilateral. Derm: Nails 1-5 right and 2-5 left are painful, discolored-yellow, thick, crumbly, dystrophic and with subungal debris. Skin is of normal turgor, texture and hair growth is decreased bilateral. There are no hyperkeratosis, ulcerations, scars, verruca or other lesions noted. Ortho: Muscle strength is 5/5 for all pedal groups tested. Ankle joint DF is full with the knee extended with no pain or crepitus noted. 1st MPJ ROM is decreased bilateral. Assessment: Onychomycosis with pain Diabetes Plan: Patient was seen and evaluated. Nails 1-5 right and 2-5 left were debrided in length and thickness. She complains of pain primarily to the left 2nd and left 3rd nail. If these bother her, she could consider nail removal of the left 2nd and 3rd toe. She had this done on the hallux and has done well. She will consider. Patient was instructed on the continued importance of diabetic foot care along with proper diet and keeping their blood sugar under control to prevent complications. I discussed the importance of avoiding barefoot walking, wearing good shoes, inspection of feet. These are necessary to help lower risks of developing foot complications. Patient is to RTC in 3-4 months. MARITZA Christy, Zahra 07/08/2024 2:23 PM Signed Diabetes Foot Care Instructions When you have diabetes, proper foot care is very important. Poor foot care may lead to amputation of a foot or leg. As a person with diabetes, you are more vulnerable to foot problems, because diabetes can damage your nerves and reduce blood flow to your feet. Here are some diabetes foot care tips to follow: Wash and Dry Your Feet Daily Use mild soaps Use warm water Pat your skin dry; do not rub. Thoroughly dry your feet. After washing, use lotion on your feet to prevent cracking. Do not put lotion between your toes. Examine Your Feet Each Day Check the tops and bottoms of your feet. Have someone else look at your feet if you cannot see them. Check for dry, cracked skin. Look for blisters, cuts, scratches, or other sores. Check for redness, increased warmth, or tenderness when touching any area of your feet. Check for ingrown toenails, corns, and calluses. If you get a blister or sore from your shoes, do not "pop" it. Apply a bandage and wear a different pair of shoes. Take Care of Your Toenails Cut toenails after bathing, when they are soft. Cut toenails straight across and smooth with a nail file. Avoid cutting into the corners of toes. Do not cut cuticles. If you have neuropathy (or decreased sensation in your feet) a overhead crane technician should always cut your toenails. Be Careful When Exercising Walk and exercise in comfortable shoes. Do not exercise when you have open sores on your feet. Protect Your Feet With Shoes and Socks Never go barefoot. Always protect your feet by wearing shoes or hard-soled slippers or footwear. Avoid shoes with high heels and pointed toes. Avoid shoes that expose your toes or heels (such as open-toed shoes or sandals). These types of shoes increase your risk for injury and potential infections. Try on new footwear with the type of socks you usually wear. Do not wear new shoes for more than an hour at a time. Change your socks daily. Look and feel inside your shoes before putting them on to make sure there are no foreign objects or rough areas. Avoid tight socks. Wear natural-fiber socks (cotton, wool, or a cotton-wool blend). Wear special shoes if your health care provider recommends them. Wear shoes/boots that will protect your feet from various weather conditions (cold, moisture, etc.). Make sure your shoes fit properly. If you have neuropathy (nerve damage), you may not notice that your shoes are to (more content not included)... Normal [facility] 12 Lead EKG performed by [facility] on 06-16-2024 12 Lead EKG performed by [facility] [address] [place] [address] 12 Lead EKG performed by [facility] 06/16/24 141 MR#: [id number] Acct: [id number] Name: CLARI STEPHENS Rep #: [id number] : 1950 74 From: Mark Dacosta MD Attending Dr: Dr. Mark Dacosta MD Status: DEP AMB Ordering Dr: Mark Dacosta MD Date: 06/16/24 Location: [facility] Sex: F C Admitted: [facility]/12 Lead EKG performed by [facility] ECG Report Interpretation ------Sinus Bradycardia-Left bundle branch block. ABNORMAL Electronically signed on 08/29/2024 at 11:[address] Mark Dacosta [employer] Version 8610 08/29/241114 Date Mark Dacosta MD CC: Angela Manjarrez MD Date Dictated: 06/16/241410 Date Transcribed: 06/16/241410 Shank Archer: PAPITO Signed Normal [facility] Cardiology Visit Reporton Cardiology Visit Report [facility] [address] [place] [address] OFFICE VISIT Date of Service: 06/16/24 MR#: [id number] Acct: [id number] Name: CLARI STEPHENS Rep #: [id number] : 1950 Provider: Dr. Mark Dacosta MD Age/Sex: 74/F Location: [facility] Status: Signed HPI HPI History of Present Illness Details: This lady with a history of aortic valve stenosis status post replacement with a bioprosthetic valve, paroxysmal atrial fibrillation on sotalol, sick sinus syndrome status post permanent pacemaker placement, dyslipidemia and diabetes mellitus is here for follow-up visit. Denies any complaints today. No chest pains. No shortness of breath. No palpitations. No orthopnea. No PND. Denies any ankle edema. Intake Vital Signs 12/02/23 13:57 06/16/24 08:20 Height 5 ft 8 in 5 ft 8 in Weight: 199 lb BMI 30.2 BP 116/73 Blood Pressure Location Lt brachial Position Sitting Respiration 16 Pulse 60 Pulse Source NIBP Intake Visit Reasons: 6 M [employer] Required: No Accompanied by: Self Is patient in pain?: No Allergies Penicillins Allergy (Verified 06/16/24 13:49) Shortness of breath Medications ???Medication ???Instructions ???Recorded ???Confirmed ???Type pravastatin 40 mg tablet 40 mg PO QHS CHOLESTEROL 09/06/16 06/16/24 History clobetasol 0.025 % topical cream 1 applic topical DAILY 07/02/21 06/16/24 History estradiol 0.01% (0.1 mg/gram) 1 applic vaginal 07/02/21 06/16/24 History vaginal cream fluticasone furoate 200 1 inh inhalation DAILY #60 ea 08/12/21 06/16/24 Rx mcg-vilanterol 25 mcg/dose inhalation powder (Breo Ellipta) sotalol 80 mg tablet 80 mg PO BID HEART #180 tabs 01/06/22 06/16/24 Rx acetaminophen 500 mg capsule 500 mg PO Q6H PRN 03/27/22 06/16/24 History amlodipine 2.5 mg tablet 2.5 mg PO DAILY 03/27/22 06/16/24 History famotidine 40 mg tablet 40 mg PO DAILY 03/27/22 06/16/24 History lisinopril 10 mg tablet 20 mg PO BID 03/27/22 06/16/24 History nystatin 100,000 unit/gram topical 1 applic topical TID 03/27/22 06/16/24 History powder sennosides 8.6 mg tablet (Senokot) 8.6 mg PO DAILY 03/27/22 06/16/24 History glipizide 2.5 mg tablet, extended 2.5 mg PO DAILY 09/26/22 06/16/24 History release 24 hr loratadine 10 mg tablet (Claritin) 10 mg PO DAILY 09/26/22 06/16/24 History apixaban 5 mg tablet (Eliquis) 5 mg PO BID #60 tabs 12/10/22 06/16/24 Rx albuterol sulfate 90 mcg/actuation 2 puff inhalation Q6H PRN 12/02/23 06/16/24 History aerosol inhaler shortness of breath or wheezing cholecalciferol (vitamin D3) 50 50 mcg PO DAILY 12/02/23 06/16/24 History mcg (2,000 unit) tablet fluticasone furoate 200 1 inh inhalation DAILY 12/02/23 06/16/24 History mcg-vilanterol 25 mcg/dose inhalation powder magnesium hydroxide 400 mg/5 mL 30 ml PO DAILY PRN 12/02/23 06/16/24 History oral suspension (Milk of Magnesia) meclizine 25 mg tablet 25 mg PO Q6H PRN Dizziness 12/02/23 06/16/24 History tizanidine 2 mg tablet 2 mg PO BID PRN 12/02/23 06/16/24 History aluminum-magnesium hydroxide 225 ml PO Q4H PRN PRN 06/16/24 06/16/24 History mg-200 mg/5 mL oral suspension guaifenesin 600 mg tablet, 600 mg PO Q12H PRN 06/16/24 06/16/24 History extended release 12 hr Ejection fraction %: 65 Have you fallen in the past year?: No PFSH Medical History Asthma Asthma with acute exacerbation Asthma, moderate persistent Bradycardia Carpal tunnel syndrome Cough Diabetes mellitus, type II Dyspnea on exertion Essential (primary) hypertension GERD (gastroesophageal reflux disease) GERD (gastroesophageal reflux disease) HLD (hyperlipidemia) Lichen planus Non-rheumatic aortic stenosis Paroxysmal atrial fibrillation Pneumonia SA node dysfunction Seasonal allergies Shortness of breath Sick sinus syndrome Type 2 diabetes mellitus Surgical History H/O aortic valve replacement H/O aortic valve replacement History of aortic valve replacement with bioprosthetic valve ( 01/25/13) History of tonsillectomy Hx of cataract extraction Presence of permanent cardiac pacemaker (01/07/19) S/P surgical removal of pilonidal cyst Family History Mother Diabetes Aunt Breast cancer Father Cancer Social History Smoking Status: Never smoker alcohol intake: never substance use type: does not use caffeine: Yes (Occasionally) Type: carbonated beverages and tea ROS Const Const: Negative for fatigue, weakness, headache(s) or weight gain ENT ENT: Positive for dizziness (vertigo); Negative for headache(s), Nosebleed/epista (more content not included)... Normal [facility] CBC-Complete Blood Cnt No Di ffon 06-07-2024 Erythrocyte distribution width (RBC) [Ratio] 16.1 % High 11.6-14.6 [facility] Comment on above: Order Comment: 114 Performed By: #### L 501.5200, L100.0100, L500.2500 #### [facility] [address] [place], [address] Hematocrit (Bld) [Volume fraction] 36.7 % Low 37-47 [facility] Comment on above: Order Comment: 114 Performed By: #### L 501.5200, L100.0100, L500.2500 #### [facility] [address] [place], [address] Hemoglobin (Bld) [Mass/Vol] 11.2 g/dL Low 12.0-15.0 [facility] Comment on above: Order Comment: 114 Performed By: #### L 501.5200, L100.0100, L500.2500 #### [facility] [address] [place], [address] MCH (RBC) [Entitic mass] 27.9 pg Normal 27.0-32.0 [facility] Comment on above: Order Comment: 114 Performed By: #### L 501.5200, L100.0100, L500.2500 #### [facility] [address] [place], [address] MCHC (RBC) [Mass/Vol] 30.5 g/dL Low 32-36 [facility] Comment on above: Order Comment: 114 Performed By: #### L 501.5200, L100.0100, L500.2500 #### [facility] [address] [place], [address] MCV (RBC) [Entitic vol] 91.5 fL Normal 81-99 [facility] Comment on above: Order Comment: 114 Performed By: #### L 501.5200, L100.0100, L500.2500 #### [facility] [address] [place], [address] Platelet mean volume (Bld) [Entitic vol] 11.7 fL Normal 6.2-12.0 [facility] Comment on above: Order Comment: 114 Performed By: #### L 501.5200, L100.0100, L500.2500 #### [facility] [address] [place], [address] Platelets (Bld) [#/Vol] 169 10*3/uL Normal 150-450 [facility] Comment on above: Order Comment: 114 Performed By: #### L 501.5200, L100.0100, L500.2500 #### [facility] [address] [place], [address] RBC (Bld) [#/Vol] 4.01 10*6/uL Low 4.2-5.4 [facility] Comment on above: Order Comment: 114 Performed By: #### L 501.5200, L100.0100, L500.2500 #### [facility] [address] [place], [address] RDW SD 54.6 fl High 35.1-43.9 [facility] Comment on above: Order Comment: 114 Performed By: #### L 501.5200, L100.0100, L500.2500 #### [facility] [address] [place], [address] WBC (Bld) [#/Vol] 7.1 10*3/uL Normal 4.4-11.0 [facility] Comment on above: Order Comment: 114 Performed By: #### L 501.5200, L100.0100, L500.2500 #### [facility] [address] [place], [address] [facility] 05-25-2024 Albumin [Mass/Vol] 3.4 g/dL Normal 3.2-5.0 [facility] Comment on above: Order Comment: 114 Performed By: #### L 500.4100, L501.9520, L501.9985, L500.4050 #### [facility] [address] [place], [address] Albumin/Globulin [Mass ratio] 0.9 {ratio} Normal 0.9-2.4 [facility] Comment on above: Order Comment: 114 Performed By: #### L 500.4100, L501.9520, L501.9985, L500.4050 #### [facility] [address] [place], [address] ALK P 124 U/L High 45-117 [facility] Comment on above: Order Comment: 114 Performed By: #### L 500.4100, L501.9520, L501.9985, L500.4050 #### [facility] [address] [place], [address] ALT [Catalytic activity/Vol] 35 U/L Normal 13-56 [facility] Comment on above: Order Comment: 114 Performed By: #### L 500.4100, L501.9520, L501.9985, L500.4050 #### [facility] [address] [place], [address] AST [Catalytic activity/Vol] 27 U/L Normal 15-37 [facility] Comment on above: Order Comment: 114 Performed By: #### L 500.4100, L501.9520, L501.9985, L500.4050 #### [facility] [address] [place], [address] Bilirubin [Mass/Vol] 0.40 mg/dL Normal 0.20-1.00 [facility] Comment on above: Order Comment: 114 Result Comment: For patients on eltrombopag therapy, use of Dimension [place] TBIL is not recommended. Performed By: #### L 500.4100, L501.9520, L501.9985, L500.4050 #### [facility] [address] [place], [address] BUN/CRE 23.8 RATIO High 10-20 [facility] Comment on above: Order Comment: 114 Performed By: #### L 500.4100, L501.9520, L501.9985, L500.4050 #### [facility] [address] [place], [address] CA,Total 9.9 mg/dL Normal 8.5-10.1 [facility] Comment on above: Order Comment: 114 Performed By: #### L 500.4100, L501.9520, L501.9985, L500.4050 #### [facility] [address] [place], [address] Chloride [Moles/Vol] 115 mmol/L High 98-107 [facility] Comment on above: Order Comment: 114 Performed By: #### L 500.4100, L501.9520, L501.9985, L500.4050 #### [facility] [address] [place], [address] CO2 [Moles/Vol] 21.0 mmol/L Normal 21.0-32.0 [facility] Comment on above: Order Comment: 114 Performed By: #### L 500.4100, L501.9520, L501.9985, L500.4050 #### [facility] [address] [place], [address] Creatinine [Mass/Vol] 1.01 mg/dL Normal 0.55-1.02 [facility] Comment on above: Order Comment: 114 Result Comment: The validity of the calculated GFR GFRAA in patients over 70 years has not been determined. Clinical correlation is essential. Performed By: #### L 500.4100, L501.9520, L501.9985, L500.4050 #### [facility] [address] [place], [address] EST GFR - AA 69 mL/min Normal >60 [facility] Comment on above: Order Comment: 114 Result Comment: Afri can Greek GFR Calc Performed By: #### L 500.4100, L501.9520, L501.9985, L500.4050 #### [facility] [address] [place], [address] GAP 5 Normal 5-15 [facility] Comment on above: Order Comment: 114 Performed By: #### L 500.4100, L501.9520, L501.9985, L500.4050 #### [facility] [address] [place], [address] GFR/1.73 sq M.predicted among non-blacks MDRD (S/P/Bld) [Vol rate/Area] 57 mL/min/{1.73_m2} Low >60 [facility] Comment on above: Order Comment: 114 Result Comment: Non- GFR Calc Performed By: #### L 500.4100, L501.9520, L501.9985, L500.4050 #### [facility] [address] [place], [address] Globulin (S) [Mass/Vol] 3.8 g/dL Normal 2.2-4.2 [facility] Comment on above: Order Comment: 114 Performed By: #### L 500.4100, L501.9520, L501.9985, L500.4050 #### [facility] [address] [place], [address] Glucose [Mass/Vol] 121 mg/dL High 74-106 [facility] Comment on above: Order Comment: 114 Result Comment: Fast ing Glucose result from 100 to 125 mg/dL suggests IMPAIRED HOMEOSTASIS per A.D.A. criteria. Performed By: #### L 500.4100, L501.9520, L501.9985, L500.4050 #### [facility] [address] [place], [address] Potassium [Moles/Vol] 4.5 mmol/L Normal 3.5-5.1 [facility] Comment on above: Order Comment: 114 Performed By: #### L 500.4100, L501.9520, L501.9985, L500.4050 #### [facility] [address] [place], [address] Sodium [Moles/Vol] 141 mmol/L Normal 136-145 [facility] Comment on above: Order Comment: 114 Performed By: #### L 500.4100, L501.9520, L501.9985, L500.4050 #### [facility] [address] [place], [address] T PROT 7.2 g/dL Normal 6.4-8.2 [facility] Comment on above: Order Comment: 114 Performed By: #### L 500.4100, L501.9520, L501.9985, L500.4050 #### [facility] [address] [place], [address] Urea nitrogen [Mass/Vol] 24 mg/dL High 7-18 [facility] Comment on above: Order Comment: 114 Performed By: #### L 500.4100, L501.9520, L501.9985, L500.4050 #### [facility] [address] [place], [address] Hemoglobin A1con 05-25-2024 HbA1c (Bld) [Mass fraction] 6.1 % High 3.8-5.6 [facility] Comment on above: Order Comment: 114 Result Comment: Norm al < 5.7 % Prediabetic 5.7 - 6.4 % Diabetic >or= 6.5 % Please note range changes. Performed By: #### L 500.4100, L501.9520, L501.9985, L500.4050 #### [facility] [address] [place], [address] Lipid Profileon 05-25-2024 Cholesterol [Mass/Vol] 166 mg/dL Normal 200 [facility] Comment on above: Order Comment: 114 Result Comment: <200 mg/dL Desirable 200-240 mg/dL Borderline >240 mg/dL High Risk Performed By: #### L 501.5200, L100.0100, L500.2500 #### [facility] [address] [place], [address] Cholesterol in HDL [Mass/Vol] 54 mg/dL Normal [facility] Comment on above: Order Comment: 114 Result Comment: The drugs N-Acetylcysteine and Metamizole may falsely depress this assay. Reference Range HDL <40 mg/dL Low HDL Cholesterol HDL >or= 60 mg/dL High HDL Cholesterol Performed By: #### L 501.5200, L100.0100, L500.2500 #### [facility] [address] [place], [address] Cholesterol in LDL [Mass/Vol] 77 mg/dL Normal 0-130 [facility] Comment on above: Order Comment: 114 Performed By: #### L 501.5200, L100.0100, L500.2500 #### [facility] [address] [place], [address] Cholesterol in VLDL [Mass/Vol] 35 mg/dL Normal 5-40 [facility] Comment on above: Order Comment: 114 Performed By: #### L 501.5200, L100.0100, L500.2500 #### [facility] [address] [place], [address] Triglyceride [Mass/Vol] 173 mg/dL Normal [facility] Comment on above: Order Comment: 114 Result Comment: The drugs N-Acetylcysteine and Metamizole may falsely depress this assay. Serum Triglycerides Reference Interval Normal <150 mg/dL Borderline high 150 - 199 mg/dL High 200 - 499 mg/dL Very High > or = 500 mg/dL Performed By: #### L 501.5200, L100.0100, L500.2500 #### [facility] [address] [place], [address] Thyroid Stim Hormone (TSH)on 05-25-2024 TSH 3.460 uIU/mL Normal 0.358-3.740 [facility] Comment on above: Order Comment: 114 Performed By: #### L 501.5200, L100.0100, L500.2500 #### [facility] [address] [place], [address] CNOVon 04-01-2024 CNOV Office Visit (PODIWS) CLARI STEPHENS ([id number]) 1950 F Date Time Provider Department 04/01/24 1:00 PM ZAHRA VAZQUEZ During your visit today, we recorded the following information about you: Liang NeffiaKATIE 04/01/2024 1:34 PM Signed AMB ROOMING INTAKE FLOWSHEET DATA Risk Screening Do you have concerns about personal safety or safety in the home?: No Pain Pain Level: 3 Pain Location: Toe Description: Sore Duration Units: Months Frequency: Intermittent Patient presents with: Left Foot - Established Patient, nail care, New, Ingrown Toenail Right Foot - nail care, New, Ingrown Toenail Barbie Neff [employer] Zahra Vazquez 04/01/2024 1:34 PM Signed Initial Office Visit Subjective: This 74 year old female presents to clinic for diabetic foot check. Patient has the following complaints: painful toenail, right hallux. Patient admits to being diabetic for multiple years now. Patient -B/T/N in feet at this time. Patient -pain in legs when walking. No other pedal complaints at this time. No change in medications or medical history since last visit. PAIN EVALUATION 04/01/2024 1310 Pain Level: 3 Pain Location: Toe Description: Sore Duration Units: Months Frequency: Intermittent Hemoglobin A1C (%) Date Value 12/16/2021 6.4 06/12/2021 6.0 05/10/2020 6.3 06/10/2019 5.9 06/12/2017 6.0 10/09/2016 6.1 Hemoglobin A1C (POCT) (%) Date Value 11/27/2020 6.0 PCP: No primary care provider on file. PAST MEDICAL HISTORY 12/03/2005: AORTIC VALVE DISORDER Comment: Oneal 12-03-05: ECG showed SB, no LVH-rec Echo to consider bicupsid AV Echo 03-09: LA 42 mm, 61%, mild LVH, mod-severe calcific -orifice 1.1 cm2, 1+ TR, RVSP 31 Go 02-07: rec repeat Echo in 6 mo (reordered in 01-09 as pt did not do test) Echo 02-08: 65%, LVH, trivial MR, RVSP 24, mod-sev of 1 cm2 07/12/2007: ASTHMA UNSPECIFIED Comment: Amoxil 01-05 and Ketek 1-06 for URI Singulair and Albuterol started in 04-07 Rec OTC antihistamine for eye symptoms as of 01-0906/17/2007: Carpal tunnel syndrome Comment: Recommended Naprosyn and Flexeril as of 03-09 [facility]: rec stopping in 06-09 Responding well to wrist splints as of 06-09 and wt loss as of 07-09: Heme positive stool 06/17/2007: HYPERLIPIDEMIA NEC/NOS Comment: Zocor in 01-05 and Lipitor as of 04-09 LDL 100, HDL 36, TG 186 in 05-08 LDL 84, HDL 36, TG 140 in 11-08 Changed to Pravastatin 40 mg in 10-09 LDL 112, HDL 38, TG 136 in 01-0906/17/2007: HYPERTENSION NOS Comment: Lisinopril started about 12-05 Creat 0.9 in 05-08, 07-10, 01-09 UA negative for protein and blood in 01-0903/04/2010: Impaired fasting glucose 03/09/2014: Lichen planus Comment: Vulva 06/08/2008: PNEUMONIA, ORGANISM NOS Comment: Lingular infiltrate by CXR, WBC 11 K in 03-10: need to repeat for clearing (pt had pneumonia clinically) CXR 06-10 showed partial resolution of the left lingular infiltrate: scheduled pt as need to consider CT given timeframe CT in 07-10: atelec vs scar vs infiltrate (unlikely given clinical improvement), no JEWEL (notified by phone 08-02-08) 03/03/2013: S/P aortic valve replacement 04/15/2013: Type II or unspecified type diabetes mellitus without mention of complication, not stated as uncontrolled Current Outpatient Medications Medication Sig mag hydrox/aluminum hyd/simeth (ANTACID SUSPENSION ORAL) Take by mouth. loratadine (CLARITIN) 10 mg tablet Take 10 mg by mouth once daily. apixaban (ELIQUIS ORAL) Take 5 mg by mouth. glipiZIDE 2.5 mg tablet Take 2.5 mg by mouth two times a day before meals. senna (SENOKOT) 8.6 mg tab Take 8.6 mg by mouth two times a day. tiZANidine HCl (ZANAFLEX) 2 mg capsule Take 2 mg by mouth three times a day as needed. acetaminophen (TYLENOL EXTRA STRENGTH) 500 mg tablet Take 500 mg by mouth every 8 hours as needed. estradiol 0.01% estriol 0.01% topical cream (CPD) Apply 1 gram (4 clicks) vaginally twice weekly amLODIPine (NORVASC) 2.5 mg tablet Take 1 tablet by mouth once daily. pravastatin (PRAVACHOL) 40 mg tablet Take 1 tablet by mouth daily at bedtime. lisinopril (ZESTRIL, PRINIVIL) 20 mg tablet Take 1 tablet by mouth twice daily. famotidine (PEPCID) 40 mg tablet Take 1 tablet by mouth once daily. meclizine (ANTIVERT) 25 mg tab Take 1 tablet by mouth every 6 hours as needed (dizziness). clobetasol (TEMOVATE) 0.05 % ointment Apply 1 application to affected area daily at bedtime. TO AFFECTED AREA for 4 weeks. albuterol HFA (PROVENTIL HFA) 90 mcg/actuation inhaler Inhale 2 Puffs as instructed every 6 hours as needed for Wheezing/Shortness of Breath. Cholecalciferol, Vitamin D3, 2,000 unit cap Take 1 capsule by mouth once daily. sotalol (BETAPACE) 80 mg tablet Take 1 tablet by mouth twice daily. fluticasone-vilanter ol (BREO ELLIPTA) 200-25 mcg/dose inhaler Inhale 1 Inhalation as instructed once martín (more content not included)... Normal [facility] Metabolic Prof ilmarci 02-25-2024 Albumin [Mass/Vol] 2.9 g/dL Low 3.2-5.0 [facility] Comment on above: Order Comment: 114 Performed By: #### L 500.4100, L500.4050, L501.9985, L501.9520 #### [facility] [address] [place], [place], [address] Albumin/Globulin [Mass ratio] 0.7 {ratio} Low 0.9-2.4 [facility] Comment on above: Order Comment: 114 Performed By: #### L 500.4100, L500.4050, L501.9985, L501.9520 #### [facility] [address] [place], [address] ALK P 131 U/L High 45-117 [facility] Comment on above: Order Comment: 114 Performed By: #### L 500.4100, L500.4050, L501.9985, L501.9520 #### [facility] [address] [place], [address] ALT [Catalytic activity/Vol] 32 U/L Normal 13-56 [facility] Comment on above: Order Comment: 114 Performed By: #### L 500.4100, L500.4050, L501.9985, L501.9520 #### [facility] [address] [place], [address] AST [Catalytic activity/Vol] 31 U/L Normal 15-37 [facility] Comment on above: Order Comment: 114 Performed By: #### L 500.4100, L500.4050, L501.9985, L501.9520 #### [facility] [address] [place], [address] Bilirubin [Mass/Vol] 0.20 mg/dL Normal 0.20-1.00 [facility] Comment on above: Order Comment: 114 Result Comment: For patients on eltrombopag therapy, use of Dimension [place] TBIL is not recommended. Performed By: #### L 500.4100, L500.4050, L501.9985, L501.9520 #### [facility] [address] [place], [address] BUN/CRE 18.8 RATIO Normal 10-20 [facility] Comment on above: Order Comment: 114 Performed By: #### L 500.4100, L500.4050, L501.9985, L501.9520 #### [facility] [address] [place], [address] CA,Total 10.0 mg/dL Normal 8.5-10.1 [facility] Comment on above: Order Comment: 114 Performed By: #### L 500.4100, L500.4050, L501.9985, L501.9520 #### [facility] [address] [place], [address] Chloride [Moles/Vol] 114 mmol/L High 98-107 [facility] Comment on above: Order Comment: 114 Performed By: #### L 500.4100, L500.4050, L501.9985, L501.9520 #### [facility] [address] [place], [address] CO2 [Moles/Vol] 23.0 mmol/L Normal 21.0-32.0 [facility] Comment on above: Order Comment: 114 Performed By: #### L 500.4100, L500.4050, L501.9985, L501.9520 #### [facility] [address] [place], [address] Creatinine [Mass/Vol] 1.12 mg/dL High 0.55-1.02 [facility] Comment on above: Order Comment: 114 Result Comment: The validity of the calculated GFR GFRAA in patients over 70 years has not been determined. Clinical correlation is essential. Performed By: #### L 500.4100, L500.4050, L501.9985, L501.9520 #### [facility] [address] [place], [address] EST GFR - AA 61 mL/min Normal >60 [facility] Comment on above: Order Comment: 114 Result Comment: Afri can Greek GFR Calc Performed By: #### L 500.4100, L500.4050, L501.9985, L501.9520 #### [facility] [address] [place], [address] GAP 6 Normal 5-15 [facility] Comment on above: Order Comment: 114 Performed By: #### L 500.4100, L500.4050, L501.9985, L501.9520 #### [facility] [address] [place], [address] GFR/1.73 sq M.predicted among non-blacks MDRD (S/P/Bld) [Vol rate/Area] 50 mL/min/{1.73_m2} Low >60 [facility] Comment on above: Order Comment: 114 Result Comment: Non- GFR Calc Performed By: #### L 500.4100, L500.4050, L501.9985, [id number] #### [facility] [address] [place], [address] Globulin (S) [Mass/Vol] 3.9 g/dL Normal 2.2-4.2 [facility] Comment on above: Order Comment: 114 Performed By: #### L 500.4100, [id number], [id number], [id number] #### [facility] [address] [place], [address] Glucose [Mass/Vol] 105 mg/dL Normal 74-106 [facility] Comment on above: Order Comment: 114 Result Comment: Fast ing Glucose result from 100 to 125 mg/dL suggests IMPAIRED HOMEOSTASIS per A.D.A. criteria. Performed By: #### L 500.4100, [id number], [id number], [id number] #### [facility] [address] [place], [address] Potassium [Moles/Vol] 4.2 mmol/L Normal 3.5-5.1 [facility] Comment on above: Order Comment: 114 Performed By: #### L 500.4100, [id number], [id number], [id number] #### [facility] [address] [place], [address] Sodium [Moles/Vol] 143 mmol/L Normal 136-145 [facility] Comment on above: Order Comment: 114 Performed By: #### L 500.4100, [id number], [id number], [id number] #### [facility] [address] [place], [address] T PROT 6.8 g/dL Normal 6.4-8.2 [facility] Comment on above: Order Comment: 114 Performed By: #### L 500.4100, [id number], [id number], [id number] #### [facility] [address] [place], [address] Urea nitrogen [Mass/Vol] 21 mg/dL High 7-18 [facility] Comment on above: Order Comment: 114 Performed By: #### L 500.4100, [id number], [id number], [id number] #### [facility] [address] [place], [address] Hemoglobin A1con 02-25-2024 HbA1c (Bld) [Mass fraction] 6.0 % High 3.8-5.6 [facility] Comment on above: Order Comment: 114 Result Comment: Norm al < 5.7 % Prediabetic 5.7 - 6.4 % Diabetic >or= 6.5 % Please note range changes. Performed By: #### L 500.4100, [id number], [id number], [id number] #### [facility] [address] [place], [address] Lipid Profileon 02-25-2024 Cholesterol [Mass/Vol] 137 mg/dL Normal 200 [facility] Comment on above: Order Comment: 114 Result Comment: <200 mg/dL Desirable 200-240 mg/dL Borderline >240 mg/dL High Risk Performed By: #### L 500.4100, [id number], [id number], [id number] #### [facility] [address] [place], [address] Cholesterol in HDL [Mass/Vol] 47 mg/dL Normal [facility] Comment on above: Order Comment: 114 Result Comment: The drugs N-Acetylcysteine and Metamizole may falsely depress this assay. Reference Range HDL <40 mg/dL Low HDL Cholesterol HDL >or= 60 mg/dL High HDL Cholesterol Performed By: #### L 500.4100, [id number], [id number], [id number] #### [facility] [address] [place], [address] Cholesterol in LDL [Mass/Vol] 60 mg/dL Normal 0-130 [facility] Comment on above: Order Comment: 114 Performed By: #### L 500.4100, [id number], [id number], [id number] #### [facility] [address] [place], [address] Cholesterol in VLDL [Mass/Vol] 30 mg/dL Normal 5-40 [facility] Comment on above: Order Comment: 114 Performed By: #### L 500.4100, [id number], [id number], [id number] #### [facility] [address] [place], [address] Triglyceride [Mass/Vol] 151 mg/dL Normal [facility] Comment on above: Order Comment: 114 Result Comment: The drugs N-Acetylcysteine and Metamizole may falsely depress this assay. Serum Triglycerides Reference Interval Normal <150 mg/dL Borderline high 150 - 199 mg/dL High 200 - 499 mg/dL Very High > or = 500 mg/dL Performed By: #### L 500.4100, [id number], [id number], [id number] #### [facility] [address] [place], [address] Thyroid Stim Hormone (TSH)on 02-25-2024 TSH 4.19 uIU/mL High 0.358-3.74 [facility] Comment on above: Order Comment: 114 Performed By: #### L 500.4100, [id number], [id number], [id number] #### [facility] [place], [address] Whole blood hemoglobin A1c/t otal hemoglobin ratio (mass fraction)Ordered By: Angela Manjarrez on 09-17-2023 HbA1c (Bld) [Mass fraction] 6.2 % 3.8-5.6 [facility] Comment on above: Normal < 5.7 % Predi abetic 5.7 - 6.4 % Diabetic >or= 6.5 % Please note range changes. Basophil percentageOrdered B y: Angela Manjarrez on 08-28-2023 Bilirubin [Mass/Vol] 0.40 mg/dL 0.20-1.00 [facility] Comment on above: For patients on eltr ombopag therapy, use of [place] TBIL is not recommended. Chloride [Moles/Vol] 116 mmol/L 98-107 [facility] Cholesterol [Mass/Vol] 146 mg/dL <200 [facility] Comment on above: <200 mg/dL Desirable 200-240 mg/dL Borderline >240 mg/dL High Risk Glucose [Mass/Vol] 111 mg/dL 74-106 [facility] Comment on above: Fasting Glucose resu lt from 100 to 125 mg/dL suggests IMPAIRED HOMEOSTASIS per A.D.A. criteria. Potassium [Moles/Vol] 4.5 mmol/L 3.5-5.1 [facility] Protein [Mass/Vol] 6.4 g/dL 6.4-8.2 [facility] Sodium [Moles/Vol] 143 mmol/L 136-145 [facility] Triglyceride [Mass/Vol] 156 mg/dL <199 [facility] Comment on above: The drugs N-Acetylcy steine and Metamizole may falsely depress this assay.Serum Triglycerides Reference Interval Normal <150 mg/dL Borderline high 150 - 199 mg/dL High 200 - 499 mg/dL Very High > or = 500 mg/dL High density lipoprotein (HD L) measurementOrdered By: Angela Manjarrez on 08-28-2023 Cholesterol in HDL (Body fld) [Mass/Vol] 44 mg/dL >40 [facility] Comment on above: The drugs N-Acetylcy steine and Metamizole may falsely depress this assay. Reference Range HDL <40 mg/dL Low HDL Cholesterol HDL >or= 60 mg/dL High HDL Cholesterol Laboratory - Chemistry and C hemistry - challengeOrdered By: Angela Manjarrez on 08-28-2023 Albumin/Globulin [Mass ratio] 0.9 {ratio} 0.9-2.4 [facility] ALP [Catalytic activity/Vol] 127 U/L 45-117 [facility] ALT [Catalytic activity/Vol] 37 U/L 13-56 [facility] CO2 [Moles/Vol] 24.0 mmol/L 21.0-32.0 [facility] Globulin (S) [Mass/Vol] 3.4 g/dL 2.2-4.2 [facility] Urea nitrogen/Creatinine [Mass ratio] 18.9 mg/mg 10-20 [facility] Low density lipoprotein (LDL ) cholesterol measurementOrdered By: Angela Manjarrez on 08-28-2023 Cholesterol in LDL (Body fld) [Moles/Vol] 71 mg/dL 0-130 [facility] No Panel InformationOrdered By: Angela Manjarrez on 08-28-2023 Estimated GFR (MDRD) Amer 65 mL/min >60 [facility] Comment on above: GFR Calc Estimated GFR (MDRD) Non-Af Amer 54 mL/min >60 [facility] Comment on above: Non- GFR Calc Serum or plasma calcium jia urement (mass/volume)Ordered By: Angela Manjarrez on 08-28-2023 Calcium [Mass/Vol] 9.6 mg/dL 8.5-10.1 [facility] Serum or plasma creatinine m easurement (mass/volume)Ordered By: Angela Manjarrez on 08-28-2023 Creatinine [Mass/Vol] 1.06 mg/dL 0.55-1.02 [facility] Comment on above: The validity of the calculated GFR & GFRAA in patients over 70 years has not been determined. Clinical correlation is essential. Serum or plasma thyroid stim ulating hormone (TSH) measurement (units/volume)Ordered By: Angela Manjarrez on 08-28-2023 TSH Qn 3.69 uIU/mL 0.358-3.74 [facility] Serum or plasma urea nitroge n measurement (mass/volume)Ordered By: Angela Manjarrez on 08-28-2023 Urea nitrogen [Mass/Vol] 20 mg/dL 7-18 [facility] Thin prep Papanicolaou smear with manual screeningOrdered By: Angela Manjarrez on 08-28-2023 Thin prep Papanicolaou smear with manual screening 3.0 g/dL 3.2-5.0 [facility] Thin prep Papanicolaou smear with manual screening 28 U/L 15- [facility] Thin prep Papanicolaou smear with manual screening 3 5-15 [facility] Very low density lipoprotein (VLDL) cholesterol measurementOrdered By: Angela Manjarrez on 08-28-2023 Cholesterol in VLDL Calc [Moles/Vol] 31 mg/dL [facility] Whole blood hemoglobin A1c/t otal hemoglobin ratio (mass fraction)Ordered By: Angela Manjarrez on 08-28-2023 HbA1c (Bld) [Mass fraction] 6.0 % 3.8-5.6 [facility] Comment on above: Normal < 5.7 % Predi abetic 5.7 - 6.4 % Diabetic >or= 6.5 % Please note range changes. Basophil percentageOrdered B y: Angela Manjarrez on 06-01-2023 Bilirubin [Mass/Vol] 0.40 mg/dL 0.20-1.00 [facility] Comment on above: For patients on eltr ombopag therapy, use of [place] TBIL is not recommended. Chloride [Moles/Vol] 115 mmol/L 98-107 [facility] Cholesterol [Mass/Vol] 150 mg/dL <200 [facility] Comment on above: <200 mg/dL Desirable 200-240 mg/dL Borderline >240 mg/dL High Risk Glucose [Mass/Vol] 111 mg/dL 74-106 [facility] Comment on above: Fasting Glucose resu lt from 100 to 125 mg/dL suggests IMPAIRED HOMEOSTASIS per A.D.A. criteria. Potassium [Moles/Vol] 4.2 mmol/L 3.5-5.1 [facility] Protein [Mass/Vol] 6.6 g/dL 6.4-8.2 [facility] Sodium [Moles/Vol] 142 mmol/L 136-145 [facility] Triglyceride [Mass/Vol] 162 mg/dL <199 [facility] Comment on above: The drugs N-Acetylcy steine and Metamizole may falsely depress this assay.Serum Triglycerides Reference Interval Normal <150 mg/dL Borderline high 150 - 199 mg/dL High 200 - 499 mg/dL Very High > or = 500 mg/dL Laboratory - Chemistry and C hemistry - challengeOrdered By: Angela Manjarrez on 06-01-2023 ALP [Catalytic activity/Vol] 155 U/L 45-117 [facility] ALT [Catalytic activity/Vol] 34 U/L 13-56 [facility] CO2 [Moles/Vol] 21.0 mmol/L 21.0-32.0 [facility] Globulin (S) [Mass/Vol] 3.7 g/dL 2.2-4.2 [facility] Urea nitrogen/Creatinine [Mass ratio] 24.1 mg/mg 10-20 [facility] No Panel InformationOrdered By: Angela Manjarrez on 06-01-2023 Estimated GFR (MDRD) Amer 73 mL/min >60 [facility] Comment on above: GFR Calc Estimated GFR (MDRD) Non-Af Amer 61 mL/min >60 [facility] Comment on above: Non- GFR Calc Thyroid Stimulating Hormone (TSH) 4.33 uIU/mL 0.358-3.74 [facility] Serum or plasma albumin jia urement (mass/volume)Ordered By: Angela Manjarrez on 06-01-2023 Albumin [Mass/Vol] 2.9 g/dL 3.2-5.0 [facility] Serum or plasma albumin/glob ulin mass ratioOrdered By: Angela Manjarrez on 06-01-2023 Albumin/Globulin [Mass ratio] 0.8 {ratio} 0.9-2.4 [facility] Serum or plasma calcium jia urement (mass/volume)Ordered By: Angela Manjarrez on 06-01-2023 Calcium [Mass/Vol] 9.5 mg/dL 8.5-10.1 [facility] Serum or plasma cholesterol in HDL measurement (mass/volume)Ordered By: Angela Manjarrez on 06-01-2023 Cholesterol in HDL [Mass/Vol] 44 mg/dL >40 [facility] Comment on above: The drugs N-Acetylcy steine and Metamizole may falsely depress this assay. Reference Range HDL <40 mg/dL Low HDL Cholesterol HDL >or= 60 mg/dL High HDL Cholesterol Serum or plasma cholesterol in VLDL measurement (mass/volume)Ordered By: Angela Manjarrez on 06-01-2023 Cholesterol in VLDL [Mass/Vol] 32 mg/dL 5-40 [facility] Serum or plasma creatinine m easurement (mass/volume)Ordered By: Angela Manjarrez on 06-01-2023 Creatinine [Mass/Vol] 0.95 mg/dL 0.55-1.02 [facility] Comment on above: The validity of the calculated GFR & GFRAA in patients over 70 years has not been determined. Clinical correlation is essential. Serum or plasma low density lipoprotein (LDL) cholesterol measurement (mass/volume)Ordered By: Angela Manjarrez on 06-01-2023 Cholesterol in LDL [Mass/Vol] 74 mg/dL 0-130 [facility] Serum or plasma urea nitroge n measurement (mass/volume)Ordered By: Angela Manjarrez on 06-01-2023 Urea nitrogen [Mass/Vol] 23 mg/dL 7-18 [facility] Thin prep Papanicolaou smear with manual screeningOrdered By: Angela Manjarrez on 06-01-2023 Thin prep Papanicolaou smear with manual screening 22 U/L 15-37 [facility] Thin prep Papanicolaou smear with manual screening 6 5-15 [facility] Whole blood hemoglobin A1c/t otal hemoglobin ratio (mass fraction)Ordered By: Anglea Manjarrez on 06-01-2023 HbA1c (Bld) [Mass fraction] 6.0 % 3.8-5.6 [facility] Comment on above: Normal < 5.7 % Predi abetic 5.7 - 6.4 % Diabetic >or= 6.5 % Please note range changes. Basophil percentageOrdered B y: Angela Manjarrez on 03-02-2023 Bilirubin [Mass/Vol] 0.30 mg/dL 0.20-1.00 [facility] Comment on above: For patients on eltr ombopag therapy, use of [place] TBIL is not recommended. Chloride [Moles/Vol] 115 mmol/L 98-107 [facility] Cholesterol [Mass/Vol] 138 mg/dL <200 [facility] Comment on above: <200 mg/dL Desirable 200-240 mg/dL Borderline >240 mg/dL High Risk Glucose [Mass/Vol] 103 mg/dL 74-106 [facility] Comment on above: Fasting Glucose resu lt from 100 to 125 mg/dL suggests IMPAIRED HOMEOSTASIS per A.D.A. criteria. Potassium [Moles/Vol] 4.4 mmol/L 3.5-5.1 [facility] Protein [Mass/Vol] 6.3 g/dL 6.4-8.2 [facility] Sodium [Moles/Vol] 141 mmol/L 136-145 [facility] Triglyceride [Mass/Vol] 126 mg/dL <199 [facility] Comment on above: The drugs N-Acetylcy steine and Metamizole may falsely depress this assay.Serum Triglycerides Reference Interval Normal <150 mg/dL Borderline high 150 - 199 mg/dL High 200 - 499 mg/dL Very High > or = 500 mg/dL Laboratory - Chemistry and C hemistry - challengeOrdered By: Angela Manjarrez on 03-02-2023 ALP [Catalytic activity/Vol] 144 U/L 45-117 [facility] ALT [Catalytic activity/Vol] 27 U/L 13-56 [facility] CO2 [Moles/Vol] 23.0 mmol/L 21.0-32.0 [facility] Globulin (S) [Mass/Vol] 3.5 g/dL 2.2-4.2 [facility] Urea nitrogen/Creatinine [Mass ratio] 20.8 mg/mg 10-20 [facility] No Panel InformationOrdered By: Angela Manjarrez on 03-02-2023 Estimated GFR (MDRD) Amer 65 mL/min >60 [facility] Comment on above: GFR Calc Estimated GFR (MDRD) Non-Af Amer 54 mL/min >60 [facility] Comment on above: Non- GFR Calc Thyroid Stimulating Hormone (TSH) 4.73 uIU/mL 0.358-3.74 [facility] Serum or plasma albumin jia urement (mass/volume)Ordered By: Angela Manjarrez on 03-02-2023 Albumin [Mass/Vol] 2.8 g/dL 3.2-5.0 [facility] Serum or plasma albumin/glob ulin mass ratioOrdered By: Angela Manjarrez on 03-02-2023 Albumin/Globulin [Mass ratio] 0.8 {ratio} 0.9-2.4 [facility] Serum or plasma calcium jia urement (mass/volume)Ordered By: Angela Manjarrez on 03-02-2023 Calcium [Mass/Vol] 9.2 mg/dL 8.5-10.1 [facility] Serum or plasma cholesterol in HDL measurement (mass/volume)Ordered By: Angela Manjarrez on 03-02-2023 Cholesterol in HDL [Mass/Vol] 43 mg/dL >40 [facility] Comment on above: The drugs N-Acetylcy steine and Metamizole may falsely depress this assay. Reference Range HDL <40 mg/dL Low HDL Cholesterol HDL >or= 60 mg/dL High HDL Cholesterol Serum or plasma cholesterol in VLDL measurement (mass/volume)Ordered By: Angela Manjarrez on 03-02-2023 Cholesterol in VLDL [Mass/Vol] 25 mg/dL 5-40 [facility] Serum or plasma creatinine m easurement (mass/volume)Ordered By: Angela Manjarrez on 03-02-2023 Creatinine [Mass/Vol] 1.06 mg/dL 0.55-1.02 [facility] Comment on above: The validity of the calculated GFR & GFRAA in patients over 70 years has not been determined. Clinical correlation is essential. Serum or plasma low density lipoprotein (LDL) cholesterol measurement (mass/volume)Ordered By: Angela Manjarrez on 03-02-2023 Cholesterol in LDL [Mass/Vol] 70 mg/dL 0-130 [facility] Serum or plasma urea nitroge n measurement (mass/volume)Ordered By: Angela Manjarrez on 03-02-2023 Urea nitrogen [Mass/Vol] 22 mg/dL 7-18 [facility] Thin prep Papanicolaou smear with manual screeningOrdered By: Angela Manjarrez on 03-02-2023 Thin prep Papanicolaou smear with manual screening 20 U/L 15-37 [facility] Thin prep Papanicolaou smear with manual screening 3 5-15 [facility] Whole blood hemoglobin A1c/t otal hemoglobin ratio (mass fraction)Ordered By: Angela Manjarrez on 03-02-2023 HbA1c (Bld) [Mass fraction] 6.0 % 3.8-5.6 [facility] Comment on above: Normal < 5.7 % Predi abetic 5.7 - 6.4 % Diabetic >or= 6.5 % Please note range changes. No Panel InformationOrdered By: Angela Manjarrez on 01-02-2023 Thyroid Stimulating Hormone (TSH) 3.18 uIU/mL 0.358-3.74 [facility] Basophil percentageOrdered B y: Dr. Manjarrez on 12-02-2022 Bilirubin [Mass/Vol] 0.30 mg/dL 0.20-1.00 [facility] Comment on above: For patients on eltr ombopag therapy, use of [place] TBIL is not recommended. Chloride [Moles/Vol] 114 mmol/L 98-107 [facility] Cholesterol [Mass/Vol] 174 mg/dL <200 [facility] Comment on above: <200 mg/dL Desirable 200-240 mg/dL Borderline >240 mg/dL High Risk Glucose [Mass/Vol] 103 mg/dL 74-106 [facility] Comment on above: Fasting Glucose resu lt from 100 to 125 mg/dL suggests IMPAIRED HOMEOSTASIS per A.D.A. criteria. Potassium [Moles/Vol] 4.5 mmol/L 3.5-5.1 [facility] Protein [Mass/Vol] 6.5 g/dL 6.4-8.2 [facility] Sodium [Moles/Vol] 142 mmol/L 136-145 [facility] Triglyceride [Mass/Vol] 128 mg/dL <199 [facility] Comment on above: The drugs N-Acetylcy steine and Metamizole may falsely depress this assay.Serum Triglycerides Reference Interval Normal <150 mg/dL Borderline high 150 - 199 mg/dL High 200 - 499 mg/dL Very High > or = 500 mg/dL Laboratory - Chemistry and C hemistry - challengeOrdered By: Dr. Manjarrez on 12-02-2022 ALP [Catalytic activity/Vol] 141 U/L 45-117 [facility] ALT [Catalytic activity/Vol] 34 U/L 13-56 [facility] CO2 [Moles/Vol] 20.0 mmol/L 21.0-32.0 [facility] Globulin (S) [Mass/Vol] 3.7 g/dL 2.2-4.2 [facility] Urea nitrogen/Creatinine [Mass ratio] 24.3 mg/mg 10-20 [facility] No Panel InformationOrdered By: Dr. Manjarrez on 12-02-2022 Estimated GFR (MDRD) Amer 62 mL/min >60 [facility] Comment on above: GFR Calc Estimated GFR (MDRD) Non-Af Amer 51 mL/min >60 [facility] Comment on above: Non- GFR Calc Thyroid Stimulating Hormone (TSH) 4.84 uIU/mL 0.358-3.74 [facility] Serum or plasma albumin jia urement (mass/volume)Ordered By: Dr. Manjarrez on 12-02-2022 Albumin [Mass/Vol] 2.8 g/dL 3.2-5.0 [facility] Serum or plasma albumin/glob ulin mass ratioOrdered By: Dr. Manjarrez on 12-02-2022 Albumin/Globulin [Mass ratio] 0.8 {ratio} 0.9-2.4 [facility] Serum or plasma calcium jia urement (mass/volume)Ordered By: Dr. Manjarrez on 12-02-2022 Calcium [Mass/Vol] 9.8 mg/dL 8.5-10.1 [facility] Serum or plasma cholesterol in HDL measurement (mass/volume)Ordered By: Dr. Manjarrez on 12-02-2022 Cholesterol in HDL [Mass/Vol] 45 mg/dL >40 [facility] Comment on above: The drugs N-Acetylcy steine and Metamizole may falsely depress this assay. Reference Range HDL <40 mg/dL Low HDL Cholesterol HDL >or= 60 mg/dL High HDL Cholesterol Serum or plasma cholesterol in VLDL measurement (mass/volume)Ordered By: Dr. Manjarrez on 12-02-2022 Cholesterol in VLDL [Mass/Vol] 26 mg/dL 5-40 [facility] Serum or plasma creatinine m easurement (mass/volume)Ordered By: Dr. Manjarrez on 12-02-2022 Creatinine [Mass/Vol] 1.11 mg/dL 0.55-1.02 [facility] Comment on above: The validity of the calculated GFR & GFRAA in patients over 70 years has not been determined. Clinical correlation is essential. Serum or plasma low density lipoprotein (LDL) cholesterol measurement (mass/volume)Ordered By: Dr. Manjarrez on 12-02-2022 Cholesterol in LDL [Mass/Vol] 103 mg/dL 0-130 [facility] Serum or plasma urea nitroge n measurement (mass/volume)Ordered By: Dr. Manjarrez on 12-02-2022 Urea nitrogen [Mass/Vol] 27 mg/dL 7-18 [facility] Thin prep Papanicolaou smear with manual screeningOrdered By: Dr. Manjarrez on 12-02-2022 Thin prep Papanicolaou smear with manual screening 28 U/L 15-37 [facility] Thin prep Papanicolaou smear with manual screening 8 5-15 [facility] Whole blood hemoglobin A1c/t otal hemoglobin ratio (mass fraction)Ordered By: Dr. Manjarrez on 12-02-2022 HbA1c (Bld) [Mass fraction] 6.1 % 3.8-5.6 [facility] Comment on above: Normal < 5.7 % Predi abetic 5.7 - 6.4 % Diabetic >or= 6.5 % Please note range changes. Absolute lymphocyte countOrd ered By: Dr. Manjarrez on 11-12-2022 Lymphocytes Auto (Unsp spec) [#/Vol] 2.34 10*3/uL 0.83-4.51 [facility] Basophil percentageOrdered B y: Dr. Manjarrez on 11-12-2022 Basophils/100 WBC (Bld) 0.6 % 0-1 [facility] Chloride [Moles/Vol] 114 mmol/L 98-107 [facility] Eosinophils/100 WBC (Bld) 1.9 % 0-5 [facility] Glucose [Mass/Vol] 99 mg/dL 74-106 [facility] Neutrophils (Bld) [#/Vol] 4.6 10*3/uL 2.0-7.7 [facility] Neutrophils/100 WBC (Bld) 59.1 % 47-70 [facility] Potassium [Moles/Vol] 4.4 mmol/L 3.5-5.1 [facility] Sodium [Moles/Vol] 141 mmol/L 136-145 [facility] WBC (Bld) [#/Vol] 7.8 10*3/uL 4.4-11.0 [facility] Blood erythrocytes count (nu mber/volume)Ordered By: Dr. Manjarrez on 11-12-2022 RBC (Bld) [#/Vol] 3.79 10*6/uL 4.2-5.4 [facility] Blood hemoglobin measurement (mass/volume)Ordered By: Dr. Manjarrez on 11-12-2022 Hemoglobin (Bld) [Mass/Vol] 11.0 g/dL 12.0-15.0 [facility] Blood lymphocytes/100 leukoc ytesOrdered By: Dr. Manjarrez on 11-12-2022 Lymphocytes/100 WBC (Bld) 29.8 % 19-41 [facility] Blood monocytes/100 leukocyt esOrdered By: Dr. Manjarrez on 11-12-2022 Monocytes/100 WBC (Bld) 8.3 % 0-10 [facility] Blood platelet mean volumeOr dered By: Dr. Manjarrez on 11-12-2022 Platelet mean volume (Bld) [Entitic vol] 11.5 fL 6.2-12.0 [facility] Determination of erythrocyte mean corpuscular volume (MCV)Ordered By: Dr. Manjarrez on 11-12-2022 MCV (RBC) [Entitic vol] 92.6 fL 81-99 [facility] Hematocrit Auto (Bld) [Volum e fraction]Ordered By: Dr. Manjarrez on 11-12-2022 Hematocrit (Bld) [Volume fraction] 35.1 % 37-47 [facility] Laboratory - Chemistry and C hemistry - challengeOrdered By: Dr. Manjarrez on 11-12-2022 CO2 [Moles/Vol] 23.0 mmol/L 21.0-32.0 [facility] Urea nitrogen/Creatinine [Mass ratio] 21.4 mg/mg 10-20 [facility] - Hematology and Cell countsOrdered By: Dr. Manjarrez on 11-12-2022 Erythrocyte distribution width (RBC) [Entitic vol] 51.8 fL 35.1-43.9 [facility] Erythrocyte distribution width (RBC) [Ratio] 15.1 % 11.6-14.6 [facility] Immature granulocytes/100 WBC (Bld) 0.300 % 0.0-0.9 [facility] Comment on above: IG% - Immature Granu locytes (promyelocytes, myelocytes and metamyelocytes) > 1% indicates that a LEFT SHIFT is Present. MCH (RBC) [Entitic mass] 29.0 pg 27.0-32.0 [facility] Nucleated RBC/100 WBC (Bld) [Ratio] 0 % 0-5 [facility] MCHC Auto (RBC) [Mass/Vol]Or dered By: Dr. Manjarrez on 11-12-2022 MCHC (RBC) [Mass/Vol] 31.3 g/dL 32-36 [facility] No Panel InformationOrdered By: Dr. Manjarrez on 11-12-2022 Estimated GFR (MDRD) Amer 67 mL/min >60 [facility] Comment on above: GFR Calc Estimated GFR (MDRD) Non-Af Amer 56 mL/min >60 [facility] Comment on above: Non- GFR Calc Platelets bldOrdered By: Dr. Manjarrez on 11-12-2022 Platelets (Bld) [#/Vol] 201 10*3/uL 150-450 [facility] Serum or plasma calcium jia urement (mass/volume)Ordered By: Dr. Manjarrez on 11-12-2022 Calcium [Mass/Vol] 9.7 mg/dL 8.5-10.1 [facility] Serum or plasma creatinine m easurement (mass/volume)Ordered By: Dr. Manjarrez on 11-12-2022 Creatinine [Mass/Vol] 1.03 mg/dL 0.55-1.02 [facility] Comment on above: The validity of the calculated GFR & GFRAA in patients over 70 years has not been determined. Clinical correlation is essential. Serum or plasma urea nitroge n measurement (mass/volume)Ordered By: Dr. Manjarrez on 11-12-2022 Urea nitrogen [Mass/Vol] 22 mg/dL 7-18 [facility] Thin prep Papanicolaou smear with manual screeningOrdered By: Dr. Manjarrez on 11-12-2022 Thin prep Papanicolaou smear with manual screening 4 5-15 [facility] Culture, urineOrdered By: Dr Pelon Manjarrez on 09-30-2022 Bacteria identified Cx Nom (U) Positive [facility] Basophil percentageOrdered B y: Dr. Manjarrez on 09-28-2022 Basophil percentage 0 SEEN /hpf 0-5 [facility] Bilirubin Test strip Ql (U)O rdered By: Dr. Manjarrez on 09-28-2022 Bilirubin Ql (U) Negative Negative [facility] Ketones Test strip Ql (U)Ord ered By: Dr. Manjarrez on 09-28-2022 Ketones Ql (U) Negative Negative [facility] Mucus LM Ql (Urine sed)Order ed By: Dr. Manjarrez on 09-28-2022 Mucus Ql (Urine sed) 0 SEEN /hpf [facility] Nitrite Test strip Ql (U)Ord ered By: Dr. Manjarrez on 09-28-2022 Nitrite Ql (U) Negative Negative [facility] Protein Test strip Ql (U)Ord ered By: Dr. Manjarrez on 09-28-2022 Protein Ql (U) Negative Negative [facility] Squamous epithelial cells de tection in urine sediment by light microscopyOrdered By: Dr. Manjarrez on 09-28-2022 Epithelial cells.squamous LM Ql (Urine sed) 0-5 SEEN /hpf 5-10 [facility] Urine blood detectionOrdered By: Dr. Manjarrez on 09-28-2022 RBC Ql (U) Negative Negative [facility] RBC Ql (U) 0 SEEN /hpf 0-5 [facility] Urine clarityOrdered By: Dr. Manjarrez on 09-28-2022 Clarity (U) Sl. Cloudy Clear [facility] Urine color determinationOrd ered By: Dr. Manjarrez on 09-28-2022 Color (U) Yellow Yellow [facility] Urine glucose detectionOrder ed By: Dr. Manjarrez on 09-28-2022 Glucose Ql (U) Normal mg/dl Normal [facility] Urine leukocyte esterase det ection by dipstickOrdered By: Dr. Manjarrez on 09-28-2022 Leukocyte esterase Test strip Ql (U) Negative Negative [facility] Urine pHOrdered By: Dr. Sudeep silva on 09-28-2022 pH (U) 6.5 [pH] 5.0 - 8.0 [facility] Urine sediment bacteria coun t by microscopy (number/high power field)Ordered By: Dr. Manjarrez on 09-28-2022 Bacteria LM.HPF (Urine sed) [#/Area] 0 /[HPF] None Seen [facility] Urine specific gravity measu rementOrdered By: Dr. Manjarrez on 09-28-2022 Specific gravity (U) [Rel density] 1.010 1.002-1.030 [facility] Urobilinogen Auto test strip Ql (U)Ordered By: Dr. Manjarrez on 09-28-2022 Urobilinogen Ql (U) Normal mg/dl Normal [facility] Basophil percentageOrdered B y: Dr. Manjarrez on 09-03-2022 Bilirubin [Mass/Vol] 0.30 mg/dL 0.20-1.00 [facility] Comment on above: For patients on eltr ombopag therapy, use of Dimension [place] TBIL is not recommended. Chloride [Moles/Vol] 116 mmol/L 98-107 [facility] Cholesterol [Mass/Vol] 169 mg/dL <200 [facility] Comment on above: <200 mg/dL Desirable 200-240 mg/dL Borderline >240 mg/dL High Risk Glucose [Mass/Vol] 104 mg/dL 74-106 [facility] Comment on above: Fasting Glucose resu lt from 100 to 125 mg/dL suggests IMPAIRED HOMEOSTASIS per A.D.A. criteria. Potassium [Moles/Vol] 4.8 mmol/L 3.5-5.1 [facility] Protein [Mass/Vol] 6.6 g/dL 6.4-8.2 [facility] Sodium [Moles/Vol] 143 mmol/L 136-145 [facility] Triglyceride [Mass/Vol] 144 mg/dL <199 [facility] Comment on above: The drugs N-Acetylcy steine and Metamizole may falsely depress this assay.Serum Triglycerides Reference Interval Normal <150 mg/dL Borderline high 150 - 199 mg/dL High 200 - 499 mg/dL Very High > or = 500 mg/dL Laboratory - Chemistry and C hemistry - challengeOrdered By: Dr. Manjarrez on 09-03-2022 ALP [Catalytic activity/Vol] 127 U/L 45-117 [facility] ALT [Catalytic activity/Vol] 24 U/L 13-56 [facility] CO2 [Moles/Vol] 22.0 mmol/L 21.0-32.0 [facility] Globulin (S) [Mass/Vol] 3.5 g/dL 2.2-4.2 [facility] Urea nitrogen/Creatinine [Mass ratio] 21.3 mg/mg 10-20 [facility] No Panel InformationOrdered By: Dr. Manjarrez on 09-03-2022 Estimated GFR (MDRD) Amer 64 mL/min >60 [facility] Comment on above: GFR Calc Estimated GFR (MDRD) Non-Af Amer 53 mL/min >60 [facility] Comment on above: Non- GFR Calc Thyroid Stimulating Hormone (TSH) 3.71 uIU/mL 0.358-3.74 [facility] Serum or plasma albumin jia urement (mass/volume)Ordered By: Dr. Manjarrez on 09-03-2022 Albumin [Mass/Vol] 3.1 g/dL 3.2-5.0 [facility] Serum or plasma albumin/glob ulin mass ratioOrdered By: Dr. Manjarrez on 09-03-2022 Albumin/Globulin [Mass ratio] 0.9 {ratio} 0.9-2.4 [facility] Serum or plasma calcium jia urement (mass/volume)Ordered By: Dr. Manjarrez on 09-03-2022 Calcium [Mass/Vol] 9.6 mg/dL 8.5-10.1 [facility] Serum or plasma cholesterol in HDL measurement (mass/volume)Ordered By: Dr. Manjarrez on 09-03-2022 Cholesterol in HDL [Mass/Vol] 50 mg/dL >40 [facility] Comment on above: The drugs N-Acetylcy steine and Metamizole may falsely depress this assay. Reference Range HDL <40 mg/dL Low HDL Cholesterol HDL >or= 60 mg/dL High HDL Cholesterol Serum or plasma cholesterol in VLDL measurement (mass/volume)Ordered By: Dr. Manjarrez on 09-03-2022 Cholesterol in VLDL [Mass/Vol] 29 mg/dL 5-40 [facility] Serum or plasma creatinine m easurement (mass/volume)Ordered By: Dr. Manjarrez on 09-03-2022 Creatinine [Mass/Vol] 1.08 mg/dL 0.55-1.02 [facility] Comment on above: The validity of the calculated GFR & GFRAA in patients over 70 years has not been determined. Clinical correlation is essential. Serum or plasma low density lipoprotein (LDL) cholesterol measurement (mass/volume)Ordered By: Dr. Manjarrez on 09-03-2022 Cholesterol in LDL [Mass/Vol] 90 mg/dL 0-130 [facility] Serum or plasma urea nitroge n measurement (mass/volume)Ordered By: Dr. Manjarrez on 09-03-2022 Urea nitrogen [Mass/Vol] 23 mg/dL 7-18 [facility] Thin prep Papanicolaou smear with manual screeningOrdered By: Dr. Manjarrez on 09-03-2022 Thin prep Papanicolaou smear with manual screening 21 U/L 15-37 [facility] Thin prep Papanicolaou smear with manual screening 5 5-15 [facility] Whole blood hemoglobin A1c/t otal hemoglobin ratio (mass fraction)Ordered By: Dr. Manjarrez on 09-03-2022 HbA1c (Bld) [Mass fraction] 6.3 % 3.8-5.6 [facility] Comment on above: Normal < 5.7 % Predi abetic 5.7 - 6.4 % Diabetic >or= 6.5 % Please note range changes. Whole blood hemoglobin A1c/t otal hemoglobin ratio (mass fraction)Ordered By: Dr. Manjarrez on 07-21-2022 HbA1c (Bld) [Mass fraction] 6.4 % 3.8-5.6 [facility] Comment on above: Normal < 5.7 % Predi abetic 5.7 - 6.4 % Diabetic >or= 6.5 % Please note range changes. Absolute lymphocyte counton 03-19-2022 Lymphocytes Auto (Unsp spec) [#/Vol] 2.19 10*3/uL 0.83-4.51 [facility] Work Phone: Basophil percentageon 2021 Basophils/100 WBC (Bld) 0.6 % 0-1 [facility] Work Phone: Bilirubin [Mass/Vol] 0.50 mg/dL 0.20-1.00 [facility] Work Phone: Comment on above: For patients on eltr ombopag therapy, use of [place] TBIL is not recommended. Chloride [Moles/Vol] 111 mmol/L 98-107 [facility] Work Phone: Cholesterol [Mass/Vol] 182 mg/dL <200 [facility] Work Phone: Comment on above: <200 mg/dL Desirable 200-240 mg/dL Borderline >240 mg/dL High Risk Eosinophils/100 WBC (Bld) 2.3 % 0-5 [facility] Work Phone: Glucose [Mass/Vol] 131 mg/dL 74-106 [facility] Work Phone: Comment on above: Fasting Glucose resu lt greater than or equal to 126 mg/dL suggests DIABETES MELLITUS per A.D.A. criteria. Neutrophils (Bld) [#/Vol] 4.9 10*3/uL 2.0-7.7 [facility] Work Phone: Neutrophils/100 WBC (Bld) 61.9 % 47-70 [facility] Work Phone: Potassium [Moles/Vol] 4.4 mmol/L 3.5-5.1 [facility] Work Phone: Protein [Mass/Vol] 7.1 g/dL 6.4-8.2 [facility] Work Phone: Sodium [Moles/Vol] 142 mmol/L 136-145 [facility] Work Phone: Triglyceride [Mass/Vol] 141 mg/dL <199 [facility] Work Phone: Comment on above: The drugs N-Acetylcy steine and Metamizole may falsely depress this assay.Serum Triglycerides Reference Interval Normal <150 mg/dL Borderline high 150 - 199 mg/dL High 200 - 499 mg/dL Very High > or = 500 mg/dL WBC (Bld) [#/Vol] 7.9 10*3/uL 4.4-11.0 [facility] Work Phone: Blood erythrocytes count (nu mber/volume)on 03-19-2022 RBC (Bld) [#/Vol] 4.35 10*6/uL 4.2-5.4 [facility] Work Phone: Blood hemoglobin measurement (mass/volume)on 03-19-2022 Hemoglobin (Bld) [Mass/Vol] 12.2 g/dL 12.0-15.0 [facility] Work Phone: Blood lymphocytes/100 leukoc yteson 03-19-2022 Lymphocytes/100 WBC (Bld) 27.7 % 19-41 [facility] Work Phone: Blood monocytes/100 leukocyt eson 03-19-2022 Monocytes/100 WBC (Bld) 7.1 % 0-10 [facility] Work Phone: Blood platelet mean volumeon 03-19-2022 Platelet mean volume (Bld) [Entitic vol] 11.4 fL 6.2-12.0 [facility] Work Phone: Determination of erythrocyte mean corpuscular volume (MCV)on 03-19-2022 MCV (RBC) [Entitic vol] 89.9 fL 81-99 [facility] Work Phone: Hematocrit Auto (Bld) [Volum e fraction]on 03-19-2022 Hematocrit (Bld) [Volume fraction] 39.1 % 37-47 [facility] Work Phone: Laboratory - Chemistry and C hemistry - challengeon 03-19-2022 ALP [Catalytic activity/Vol] 141 U/L 45-117 [facility] Work Phone: ALT [Catalytic activity/Vol] 28 U/L 13-56 [facility] Work Phone: [phone] CO2 [Moles/Vol] 24.0 mmol/L 21.0-32.0 [facility] Work Phone: Globulin (S) [Mass/Vol] 3.8 g/dL 2.2-4.2 [facility] Work Phone: [phone] Magnesium [Mass/Vol] 2.2 mg/dL 1.6-2.6 [facility] Work Phone: [phone] Urea nitrogen/Creatinine [Mass ratio] 27.5 mg/mg 10-20 [facility] Work Phone: Laboratory - Hematology and Cell countson 03-19-2022 Erythrocyte distribution width (RBC) [Entitic vol] 51.2 fL 35.1-43.9 [facility] Work Phone: Erythrocyte distribution width (RBC) [Ratio] 15.5 % 11.6-14.6 [facility] Work Phone: [phone] Immature granulocytes/100 WBC (Bld) 0.400 % 0.0-0.9 [facility] Work Phone: Comment on above: IG% - Immature Granu locytes (promyelocytes, myelocytes and metamyelocytes) > 1% indicates that a LEFT SHIFT is Present. MCH (RBC) [Entitic mass] 28.0 pg 27.0-32.0 [facility] Work Phone: Nucleated RBC/100 WBC (Bld) [Ratio] 0 % 0-5 [facility] Work Phone: MCHC Auto (RBC) [Mass/Vol]on 03-19-2022 MCHC (RBC) [Mass/Vol] 31.2 g/dL 32-36 [facility] Work Phone: No Panel Informationon 03-19 Estimated GFR (MDRD) Amer 68 mL/min >60 [facility] Work Phone: Comment on above: GFR Calc Estimated GFR (MDRD) Non-Af Amer 56 mL/min >60 [facility] Work Phone: Comment on above: Non- GFR Calc Vitamin D 25-Hydroxy 63.5 ng/mL [facility] Work Phone: Comment on above: Vitamin D 25(OH) Sta tus Range Deficiency <20 ng/mL (50nmol/L) Insufficiency 20 - 30 ng/mL (50 - 75 nmol/L) Sufficiency 30 - 100 ng/mL (75 - 250 nmol/L) Toxicity >100 ng/mL (>250 nmol/L) Platelets bldon 03-19-2022 Platelets (Bld) [#/Vol] 202 10*3/uL 150-450 [facility] Work Phone: Serum or plasma albumin jia urement (mass/volume)on 03-19-2022 Albumin [Mass/Vol] 3.3 g/dL 3.2-5.0 [facility] Work Phone: Serum or plasma albumin/glob ulin mass ratioon 03-19-2022 Albumin/Globulin [Mass ratio] 0.9 {ratio} 0.9-2.4 [facility] Work Phone: Serum or plasma calcium jia urement (mass/volume)on 03-19-2022 Calcium [Mass/Vol] 10.1 mg/dL 8.5-10.1 [facility] Work Phone: Serum or plasma cholesterol in HDL measurement (mass/volume)on 03-19-2022 Cholesterol in HDL [Mass/Vol] 60 mg/dL >40 [facility] Work Phone: Comment on above: The drugs N-Acetylcy steine and Metamizole may falsely depress this assay. Reference Range HDL <40 mg/dL Low HDL Cholesterol HDL >or= 60 mg/dL High HDL Cholesterol Serum or plasma cholesterol in VLDL measurement (mass/volume)on 03-19-2022 Cholesterol in VLDL [Mass/Vol] 28 mg/dL 5-40 [facility] Work Phone: Serum or plasma creatinine m easurement (mass/volume)on 03-19-2022 Creatinine [Mass/Vol] 1.02 mg/dL 0.55-1.02 [facility] Work Phone: Comment on above: The validity of the calculated GFR & GFRAA in patients over 70 years has not been determined. Clinical correlation is essential. Serum or plasma low density lipoprotein (LDL) cholesterol measurement (mass/volume)on 03-19-2022 Cholesterol in LDL [Mass/Vol] 94 mg/dL 0-130 [facility] Work Phone: Serum or plasma urea nitroge n measurement (mass/volume)on 03-19-2022 Urea nitrogen [Mass/Vol] 28 mg/dL 7-18 [facility] Work Phone: Thin prep Papanicolaou smear with manual screeningon 03-19-2022 Thin prep Papanicolaou smear with manual screening 18 U/L 15-37 [facility] Work Phone: Thin prep Papanicolaou smear with manual screening 7 5-15 [facility] Work Phone: Whole blood hemoglobin A1c/t otal hemoglobin ratio (mass fraction)on 03-19-2022 HbA1c (Bld) [Mass fraction] 6.4 % 3.8-5.6 [facility] Work Phone: Comment on above: Normal < 5.7 % Predi abetic 5.7 - 6.4 % Diabetic >or= 6.5 % Please note range changes. Marleen 01-23-2022 DEEJAYN Telephone (LUCILAGRCastillo) ANGELOCLARI ( ) 1950 F Date Time Provider Department 01/23/22 VIRAL LION During your visit today, we recorded the following information about you: Viral Lion APRN.[employer] 01/23/2022 3:19 PM Signed Spoke with Luiza, patient's daughter. I relayed the message for Dr. Miller for patient to start Estrace and Clobetasol cream as directed. Advised Luiza to have Clari use applicator for Estrace cream to help the patency of the vagina. Luiza is not sure patient has an applicator but she will check and let me know. Viral Lion APRN.[employer] Allergies As of Date: 01/23/2022 Noted Allergy Reaction PENICILLINS 12/03/2005 14 - Other: See Comments Comments: Childhood reaction. Tolerates cephalosporins SEASONAL ALLERGIES 02/01/2014 5 - Intolerance Comments: Sneezing and running nose (sinus issues) Date Reviewed: 01/21/2022 Reviewed by: Tatiana Concepcion RN - Fully Assessed Reason for Visit: Patient Update [1234] Prescriptions as of 01/23/2022 - ibuprofen (MOTRIN) 600 mg tablet Take 1 tablet by mouth every 6 hours as needed for pain. Take with food. - oxyCODONE IR (ROXICODONE) 5 mg immediate release tablet Take 1 tablet by mouth every 6 hours as needed for pain for up to 5 doses. - acetaminophen (TYLENOL EXTRA STRENGTH) 500 mg tablet Take 2 tablets by mouth every 6 hours as needed for pain. - estradiol 0.01% estriol 0.01% topical cream [...] 1 tablet by mouth twice daily. - fluticasone-vilanter ol (BREO ELLIPTA) 200-25 mcg/dose inhaler Inhale 1 Inhalation as instructed once daily. Inhale one puff once daily. 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/2012 06/07/2014 S/P aortic valve replacement [Z95.2] 03/03/2013 Diabetes mellitus without complication (HCC) [E*04/15/2013 Lichen planus [L43.9] 03/09/2014 Paroxysmal atrial fibrillation (HCC) [I48.0] 05/24/2019 Presence of permanent cardiac pacemaker [Z95.0] 01/07/2019 Dizziness [R42] 05/25/2020 Urticaria [L50.9] 10/25/2021 Obesity, Class I, BMI 30-34.9 [E66.9] 01/21/2022 Encounter Status:Closed by VIRAL LION on 01/23/22 [facility] ANES POSTPROC EVALon 022 ANES POSTPROC EVAL HNO ID: [id number] Author: Byron Vargas MD Service: Anesthesiology Author Type: Anesthesiologist Type: Anesthesia Postprocedure Evaluation Filed: 01/21/2022 1:53 PM Note Text: POST ANESTHESIA EVALUATION NOTE : 1950 Procedure Summary Date: 01/21/22 Room / Location: [facility] OR / [facility] OR Anesthesia Start: 849 Anesthesia Stop: 935 Procedures: EXAM UNDER ANESTHESIA PELVIC / VAGINAL (N/A Vagina ) CYSTOSCOPY (N/A Bladder) Diagnosis: Lichen planus Vaginal atrophy Labia minora agglutination Surgeons: Maricel Miller MD Responsible Provider: Byron Vargas MD Anesthesia Type: MAC ASA Status: 3 Anesthesia Type: MAC Last Vitals Vitals Value Taken Time BP 148/71 01/21/22 1000 Temp 36.6 ?C (97.9 ?F) 01/21/22 0942 HR SpO2 60 01/21/22 1000 Resp 16 01/21/22 1000 SpO2 98 % 01/21/22 1000 Post Anesthesia Patient Status Patient Evaluation: PACU. PACU/ICU Patient Condition: stable. Anticipated Disposition: phase 2 then home. Neurological Status: aware and responsive. Pulmonary Status: breathing comfortably on room air Airway Control: returned to baseline unsupported. Cardiovascular Status: stable. Pain Management: clinically adequate - multimodal analgesia pain management approach Postoperative Hydration: acceptable. Intraoperative Events: no significant anesthesia events Recommendation: continue current plan of care. Anesthesia Observations No Documentation SIGNATURE: Byron Vargas MD PATIENT NAME: Clari Stephens DATE: January 21, 2022 TIME: 1:52 PM CSN: [id number] [facility] ANES PRE-OPon 01-21-2022 ANES PRE-OP HNO ID: [id number] Author: Byron Vargas MD Service: Anesthesiology Author Type: Anesthesiologist Type: Anesthesia Preprocedure Evaluation Filed: 01/21/2022 8:23 AM Note Text: ANESTHESIOLOGY DAY OF SURGERY NOTE : 1950 Procedure Information Date/Time: 01/21/22830 Procedures: EXAM UNDER ANESTHESIA PELVIC / VAGINAL (N/A ) CYSTOSCOPY (N/A Bladder) Location: [facility] OR / [facility] OR Surgeons: Maricel Miller MD Estimated body mass index is 30.11 kg/m? as calculated from the following: Height as of this encounter: 163 cm (5' 4.17"). Weight as of this encounter: 80 kg (176 lb 5.9 oz). Most recent hematocrit and potassium results: Hematocrit 40.9 06/10/2019 Potassium 4.6 12/16/2021 Relevant Problems CARDIO (+) Essential hypertension (+) Paroxysmal atrial fibrillation (HCC) (+) Presence of permanent cardiac pacemaker GI (+) Esophageal reflux PULMONARY (+) Asthma I - PHYSICAL EVALUATION AIRWAY Patient intubated: No. Tracheostomy tube not present Mallampati: II. TM distance: >3 FB. Neck ROM: full ROM without neurological symptoms. Mouth opening: adequate. DENTAL Dental findings: poor dentition. Additional exam findings: yes. CARDIOVASCULAR Rhythm: regular PULMONARY Breath sounds clear to auscultation. II - ANESTHESIA PLAN ASA Score: 3 Anesthetic Plan: MAC NPO Status: adequate Monitoring plan: standard ASA. Postoperative analgesic plan: parenteral or oral opioids and multimodal analgesia. Patient / Surrogate agrees to blood products: blood products not planned Significant changes in the patient condition since the History and Physical, not otherwise documented in primary service progress note: no. Vitals Value Taken Time BP 184/86 01/21/22 0753 Pulse 60 01/21/22 0753 Resp 18 01/21/22 0753 Temp 36.1 ?C (97 ?F) 01/21/22 0753 SpO2 98 % 01/21/22 0753 Facility-Administere d Medications as of 01/21/2022 Medication Dose Route Frequency - lidocaine 10 mg/mL (1 %) 1-2 mg injection (XYLOCAINE) 0.1-0.2 mL INTRADERMAL PRN - lactated ringers iv infusion 5-30 mL/hr INTRAVENOUS CONTINUOUS Outpatient Medications as of 01/21/2022 Medication Sig - amLODIPine (NORVASC) 2.5 mg tablet Take 1 tablet by mouth once daily. - metFORMIN (GLUCOPHAGE) 500 mg tablet TABLET BY MOUTH EVERY DAY WITH BREAKFAST - pravastatin (PRAVACHOL) 40 mg tablet Take 1 tablet by mouth daily at bedtime. - lisinopril (ZESTRIL, PRINIVIL) 20 mg tablet Take 1 tablet by mouth twice daily. - famotidine (PEPCID) 40 mg tablet Take 1 tablet by mouth once daily. - aspirin 81 mg chewable tablet Take 1 tablet by mouth once daily. - meclizine (ANTIVERT) 25 mg tab Take 1 tablet by mouth every 6 hours as needed (dizziness). - Cholecalciferol, Vitamin D3, 2,000 unit cap Take 1 capsule by mouth once daily. - sotalol (BETAPACE) 80 mg tablet Take 1 tablet by mouth twice daily. - fluticasone-vilanter ol (BREO ELLIPTA) 200-25 mcg/dose inhaler Inhale 1 Inhalation as instructed once daily. Inhale one puff once daily. () - [] nitrofurantoin monohydrate and macrocrystal (MACROBID) 100 mg capsule Take 1 capsule by mouth twice daily for 7 days. - estradiol 0.01% estriol 0.01% topical cream (CPD) Apply 1 gram (4 clicks) vaginally twice weekly (Patient not taking: Reported on 01/13/2022 ) - estradiol (ESTRACE) 0.01 % (0.1 mg/gram) vaginal cream Use 1 g vaginally two times a week, THEN 1 g two times a week. Apply to affected area daily for 2 weeks then twice weekly.. - nystatin (NYSTOP) powder Apply 1 application to affected area four times daily. (Patient not taking: Reported on 12/25/2021 ) - blood sugar diagnostic (BLOOD GLUCOSE TEST) [...] hours as needed for Wheezing/Shortness of Breath. I have interviewed and examined the patient. I have reviewed the medical record and/or the pre-anesthesia evaluation, pertinent labs, and test results. This contains updated information obtained within 48 hours of Surgery/Procedure. SIGNATURE: Byron Vargas MD PATIENT NAME: Clari Stephens DATE: January 21, 2022 TIME: 8:23 AM CSN: [id number] [facility] BRIEF OP NOTon 01-21-2022 BRIEF OP NOT HNO ID: [id number] Author: Ayden Herrera MD Service: Urogynecology Author Type: Fellow Type: Brief Op Note Filed: 01/21/2022 9:35 AM Note Text: BRIEF OPERATIVE / PROCEDURE NOTE LOG ID: [id number] Surgery/Procedure Date: 01/21/2022 Incision/Procedure Start Time: 9:08 AM Incision Close/Procedure End Time: 9:28 AM Surgeon(s)/Procedura list(s) and [employer] Supervisor(s): Surgeon(s) and Role: * Maricel Miller MD - Primary * Marleen Jade MD - Resident - Assisting * Ayden Herrera MD - Fellow Physician [employer] Supervisor: Re Rossi PA-C Procedure(s): Lysis of labial adhesions, cystoscopy Anesthesia: Monitored Anesthesia Care Findings: -Completely fused labia minora with small pinpoint hole at 6:00 with urine leaking out, vaginal opening restored on completion of procedure -Mid vagina stenotic -Normal appearing cervix Estimated Blood Loss: 0 ml IVF/UOP: per anesthesia records Antibiotics: 2g of cefazolin Specimens: ID Type Source Tests Collected by Time Destination A : vulvar adhesion Tissue VULVA BIOPSY SURGICAL PATHOLOGY Maricel Miller MD 01/21/2022 9:11 AM VTE Prophylaxis: SCDs for mechanical prophylaxis Complications: None Implanted Devices: * No implants in log * Pre-Op/Pre-Procedure Diagnosis: Labial adhesions Post-Op/Post-Procedu re Diagnosis: same SIGNATURE: Ayden Herrera MD DATE: January 21, 2022 PATIENT NAME: Clari Stephens TIME: 9:34 AM Normal [facility] HISTORY PHYSICALon HISTORY PHYSICAL HNO ID: [id number] Author: Marleen Jade MD Service: Urogynecology Author Type: Resident Type: HANDP Filed: 01/21/2022 8:27 AM Note Text: Attestation signed by Maricel Miller MD at 01/21/2022 8:39 PM UROGYN STAFF NOTE I saw the patient with the resident and agree with the resident's findings and plan. I was present during the critical portions of the service performed by the resident and I participated in the management of this patient. Maricel Miller MD UPDATED HISTORY AND PHYSICAL EXAMINATION SERVICE DATE: 01/21/2022 SERVICE TIME: 8:25 AM PHYSICAL EXAM MUST BE COMPLETED ON ADMISSION The History and Physical (completed in the past 30 days) has been reviewed and the patient has been examined. The contents accurately reflect the patient's condition with the following additions or revisions since the HANDP was completed. Presents for adhesiolysis of labia w/ hx of lichen planus. Examination indicates no changes. LUNGS: Normal work of breathing CARDIAC: Regular rate Provisional Diagnosis/Treatment Plan: Procedure(s) (LRB): EXAM UNDER ANESTHESIA PELVIC / VAGINAL (N/A) CYSTOSCOPY (N/A) This HANDP can be found in the Electronic Medical Record dated 01/13/22. SIGNATURE: Marleen Jade MD PATIENT NAME: Clari Stephens DATE: January 21, 2022 TIME: 8:25 AM [facility] NURSING PROGon 01-21-2022 NURSING PROG HNO ID: [id number] Author: Tatiana Concepcion RN Service: Nursing Author Type: Registered Nurse Type: Nursing Progress Note Filed: 01/21/2022 11:00 AM Note Text: 1030 pt ambulates to BR with min assist. Voids QS. 1055 pt voids QS. 1058 d/c'd to home via wheelchair. [facility] OPERATIVE NOon 01-21-2022 OPERATIVE NO HNO ID: [id number] Author: Maricel Miller MD Service: Urogynecology Author Type: Physician Type: Operative Report Filed: 01/28/2022 12:18 PM Note Text: OPERATIVE/PROCEDURE REPORT LOG ID: [id number] Surgery/Procedure Date: 01/21/2022 Incision/Procedure Start Time: 9:08 AM Incision Close/Procedure End Time: 9:28 AM Surgeon(s)/Procedura list(s) and [employer] Supervisor(s): Surgeon(s) and Role: * Maricel Miller MD - Primary * Marleen Jade MD - Resident - Assisting * Ayden Herrera MD - Fellow Physician [employer] Supervisor: Re Rossi PA-C Procedure(s): Lysis of labial adhesions, cystoscopy Anesthesia: [...] was assessed without any evidence of injury. Estimated Blood Loss: 0 ml IVF/UOP: per anesthesia records Antibiotics: 2g of cefazolin Specimens: ID Type Source Tests Collected by Time Destination A : vulvar adhesion Tissue VULVA BIOPSY SURGICAL PATHOLOGY Maricel Miller MD 01/21/2022 9:11 AM VTE Prophylaxis: SCDs for mechanical prophylaxis Complications: None Implanted Devices: * No implants in log * Pre-Op/Pre-Procedure Diagnosis: Labial adhesions Lichen planus Post-Op/Post-Procedu re Diagnosis: khadra Drains: Johnson Catheter Indications: The patient is a 72 year old presented for consultation for labial agglutination. She desired surgical management She was counseled about all the risks, benefits, alternatives, complications, indications, and personnel of the procedures performed which she accepted. An informed consent was signed. Procedure Details: The patient was taken to the operating room where a surgical time-out and safety checklist were performed. The patient was then given prophylactic antibiotics. She underwent MAC without any difficulty. She was positioned in the dorsal lithotomy position using yellowfin stirrups, making sure that her lower extremities were not overly extended or flexed. She was prepped and draped in the normal sterile fashion. A final time out was performed. The labial adhesions were first by gentle outward traction in the bilateral labia. This allowed for the adhesions to separate on their natural plane. Once most of the adhesions were in this way, a Trena clamp was used to tent outward the rest of the adhesions which were taken down with the needle-tip bovie. On the completion of this, the vagina was noted to be fully accessible as was her urethral meatus. A small tissue biopsy was taken at the 6:00 position at the introitus with the Bovie. This was closed with mattress sutures in a horizontal fashion in order to not constrict the vaginal opening. Excellent hemostasis was noted. A cystoscopy was performed with a 70-degree cystoscope. A 360 degree survey was performed without evidence of trauma or injury to the bladder. There were brisk urine jets coming from both ureteral orifices. A vaginal sweep was performed by Dr. Miller, and was negative. All sponge, instrument, needle count were correct x 2. The patient was extubated without complications and taken to the PACU in stable condition. The primary surgeon performed the procedure with assistance. SIGNATURE: Ayden Herrera MD PATIENT NAME: Clari Stephens DATE: January 21, 2022 TIME: 9:36 AM I was present during the entire procedure and scrubbed for the entire procedure. I reviewed the fellow's note above and made any necessary additions/correction josé Miller MD Staff Physician, Department of Urogynecology [facility] SURGICAL PATHOLOGYon 022 CASE REPORT [facility] Comment on above: Order Comment: Speci men Type: TISSUE SPECIMEN Ordering Facility: [facility] Address: [address] [place] [address] Result Comment: Surg ica Pathology Report Case: [id number] Authorizing Provider: Maricel Miller MD Collected: 01/21/2022 09:11 AM Ordering Location: [facility] Surgery Received: 01/21/2022 10:33 AM Pathologist: Lucio Jung MD, PhD Specimen: VULVA BIOPSY, vulvar adhesion Performed By: #### S #### [facility] CLIA [id number] [address] [place] [address] FINAL DIAGNOSIS Normal [facility] Comment on above: Order Comment: Speci men Type: TISSUE SPECIMEN Ordering Facility: [facility] Address: [address] [place] [address] Result Comment: A. V ulvar, biopsy: - Benign squamous mucosa with mild chronic inflammation. Performed By: #### S #### [facility] CLIA [id number] [address] [place] [address] FINAL PERFORMING LAB Normal [facility] Comment on above: Order Comment: Speci men Type: TISSUE SPECIMEN Ordering Facility: [facility] Address: [address] [place] [address] Result Comment: Diag nostic interpretation performed at [facility], [address] [place] [address] CLIA# [id number] [employer] Consultant: Howie Sosa M.D. Performed By: #### S #### [facility] CLIA [id number] [address] [place] [address] GROSS DESCRIPTION Normal [facility] Comment on above: Order Comment: Speci men Type: TISSUE SPECIMEN Ordering Facility: [facility] Address: [address] [place] [address] Result Comment: A. V ULVA BIOPSY. Received in formalin on Telfa gauze are two rubbery wrinkled segments of irregular variegated white to gillis slightly rubbery tissue aggregating to 2.0 x 0.5 x 0.3 cm. Totally submitted in one cassette. Gross examination performed at [facility], [address] [place] [address], [place] [address] TTN 01/21/2022 5:11 PM Performed By: #### S #### [facility] CLIA [id number] [address] [place] [address] [id number] [address] [id number] [place] UA DIP, URINE (POC)on 2021 BILIRUBIN UA (POCT) Negative Negative [facility] CLARITY UA (POCT) Clear [facility] COLOR UA (POCT) Yellow [facility] GLUCOSE UA (POCT) Negative Negative mg/dL [facility] HEMOGLOBIN/BLOOD UA (POCT) Trace-intact Abnormal Negative [facility] KETONE UA (POCT) Negative Negative mg/dL [facility] LEUKOCYTES UA (POCT) Small Abnormal Negative [facility] NITRITE UA (POCT) Negative Negative [facility] PH UA (POCT) 6.5 4.5 - 8.0 [facility] Protein Ql (U) Trace Abnormal Negative mg/dL [facility] SPECIFIC GRAVITY UA (POCT) 1.020 1.005 - 1.030 [facility] UROBILINOGEN UA (POCT) 0.2 E.U./dL Tiara l E.U./dL [facility] Echocardiogram, Adult (AOH)o n 10-12-2017 Echocardiogram, Adult (AOH) Normal [facility] ([place]) Vital Signs Date Time Vital Sign Value Performing Clinician Colt meneses 11-14-2024 14:080400 Body height 172.[address] Angela Manjarrez MD [facility] [place] 11-14-2024 14:08-0400 Body mass index (BMI) [Ratio] 30.9 kg/m2 Dr. Angela Manjarrez MD [facility] 11-14-2024 14:08-0400 Body weight 92.[address] Angela Manjarrez MD [facility] 11-14-2024 14:08-0400 Diastolic blood pressure 84 mm[Hg] Dr. Angela Manjarrez MD [facility] 11-14-2024 14:08-0400 Heart rate 66 /min Dr. Angela Manjarrez MD [facility] 11-14-2024 14:08-0400 Respiratory rate 20 /min Dr. Angela Manjarrez MD [facility] 11-14-2024 14:08-0400 SaO2% (BldA) [Mass fraction] 97 % Dr. Angela Manjarrez MD [facility] 11-14-2024 14:08-0400 Systolic blood pressure 136 mm[Hg] Dr. Angela Manjarrez MD [facility] 11-03-2024 15:34-0400 Body temperature 98.1 [degF] Dr. Angela Manjarrez MD [facility] 11-03-2024 15:34-0400 Diastolic blood pressure 86 mm[Hg] Dr. Angela Manjarrez MD [facility] 11-03-2024 15:34-0400 Heart rate 96 /min Dr. Angela Manjarrez MD [facility] 11-03-2024 15:34-0400 Respiratory rate 16 /min Dr. Angela Manjarrez MD [facility] 11-03-2024 15:34-0400 SaO2% (BldA) [Mass fraction] 99 % Dr. Angela Manjarrez MD [facility] 11-03-2024 15:34-0400 Systolic blood pressure 142 mm[Hg] Dr. Angela Manjarrez MD [facility] 11-03-2024 10:47-0400 Body height 172.[address] Angela Manjarrez MD [facility] 11-03-2024 10:47-0400 Body mass index (BMI) [Ratio] 31.5 kg/m2 Dr. Angela Manjarrez MD [facility] 11-03-2024 10:47-0400 Body weight 94.[address] Angela Manjarrez MD [facility] 05-20-2023 15:00-0400 Body height 172.[address] Angela Manjarrez [facility] 05-20-2023 15:00-0400 Body mass index (BMI) [Ratio] 30.7 kg/m2 Dr. Angela Manjarrez [facility] 05-20-2023 15:00-0400 Body weight 91.[address] [facility]-2023 15:00-0400 Diastolic blood pressure 72 mm[Hg] Dr. Angela Manjarrez [facility] 05-20-2023 15:00-0400 Heart rate 60 /[facility] 05-20-2023 15:00-0400 Respiratory rate 18 /min [facility] [place] 05-20-2023 15:00-0400 SaO2% (BldA) [Mass fraction] 97 % Dr. Miller [facility] 05-20-2023 15:00-0400 Systolic blood pressure 110 mm[Hg] Dr. Miller [facility] 09-26-2022 14:47-0500 Body height 172.[address] Ori Torres Work Phone: [facility] 09-26-2022 14:47-0500 Diastolic blood pressure 79 mm[Hg] Dr. Ori Torres Work Phone: [facility] 09-26-2022 14:47-0500 Heart rate 60 /min Dr. Ori Torres Work Phone: [facility] 09-26-2022 14:47-0500 Systolic blood pressure 114 mm[Hg] Dr. Ori Torres Work Phone: [facility] 03-27-2022 10:10-0400 Body height 172.[address] Davon Calzada Work Phone: [facility] Work Phone: 03-27-2022 10:10-0400 Body mass index (BMI) [Ratio] 29.3 kg/m2 Dr. Ori Torres Work Phone: [facility] 03-27-2022 10:10-0400 Body weight 87.[address] Ori Torres Work Phone: [facility] 03-27-2022 10:10-0400 Respiratory rate 20 /min Dr. Ori Torres Work Phone: [facility] 03-27-2022 10:10-0400 SaO2% (BldA) [Mass fraction] 97 % Dr. Ori Torres Work Phone: [facility] 03-27-2022 10:02-0400 Body mass index (BMI) [Ratio] 28.3 kg/m2 Dr. Davon Calzada Work Phone: [facility] Work Phone: 03-27-2022 10:02-0400 Body weight 84.[address] Davon Calzada Work Phone: [facility] Work Phone: 03-27-2022 10:02-0400 Diastolic blood pressure 81 mm[Hg] Dr. Davon Calzada Work Phone: [facility] Work Phone: 03-27-2022 10:02-0400 Heart rate 71 /min Dr. Davon Calzada Work Phone: [facility] Work Phone: 03-27-2022 10:02-0400 Respiratory rate 18 /min Dr. Davon Calzada Work Phone: [facility] Work Phone: 03-27-2022 10:02-0400 SaO2% (BldA) [Mass fraction] 93 % Dr. Davon Calzada Work Phone: [facility] Work Phone: 03-27-2022 10:02-0400 Systolic blood pressure 130 mm[Hg] Dr. Davon Calzada Work Phone: [facility] Work Phone: 12-25-2021 09:22-0400 Diastolic blood pressure 82 mm[Hg] Indigo Mayfield APRN.[employer] CRAFTSMAN Work Phone: [facility] 12-25-2021 09:22-0400 Systolic blood pressure 136 mm[Hg] Indigo Barley POWER PLANT OPERATOR APPRENTICE.WO[employer] C[employer]SMAN Work Phone: [facility] 12-16-2021 14:10-0400 Diastolic blood pressure 74 mm[Hg] Davon Calzada MD Work Phone: [facility] 12-16-2021 14:10-0400 Heart rate 60 /min Davon Calzada MD Work Phone: [facility] 12-16-2021 14:10-0400 Systolic blood pressure 114 mm[Hg] Davon Calzada MD Work Phone: [facility] 12-16-2021 14:04-0400 Body temperature 97.3 [degF] Davon Calzada MD Work Phone: [facility] 12-16-2021 14:04-0400 Body weight 80.2 kg Davon Calzada MD Work Phone: [facility] 12-05-2021 13:47-0400 Body weight 80.29 kg Cami Farris APRN.WO[employer]SMAN Work Phone: [facility] 12-05-2021 13:47-0400 Diastolic blood pressure 76 mm[Hg] Cami Farris APRN.WO[employer]SMAN Work Phone: [facility] 12-05-2021 13:47-0400 Systolic blood pressure 140 mm[Hg] Cami Farris APRN.WO[employer] C[employer]FTSMAN Work Phone: [facility] Encounters Encounter Date Encounter Type Care Provider Facility Start: 12-19-2024 End: 12-19-[address] Angela Manjarrez MD [facility] Work Phone: Start: 12-19-2024 End: 12-19-[address] Rubio Blanc MD -[facility] Work Phone: Start: 11-25-2024 End: 11-25-2024 ambulatory ZAHRA VAZQUEZ Facility:[facility] Start: 11-25-2024 End: 11-25-[address] Angela Manjarrez MD -[facility] Work Phone: Start: 11-25-2024 End: 11-25-2024 ambulatory Angela Gudla OLS Facility:[facility] Start: 11-14-2024 End: 11-14-2024 Patient encounter procedure Blanca Kaufman CIPHER EXPERT-C -[facility] Work Phone: Start: 11-14-2024 End: 11-14-2024 ambulatory Blanca Kaufman CIPHER EXPERT Facility:[facility] Start: 11-03-2024 End: 11-03-2024 Emergency department patient visit Dr. Angela Manjarrez MD -Emergency Department Work Phone: Start: 10-21-2024 Non-patient / Non-visit Dr. Nayana RASCON -[facility] Work Phone: Start: 10-21-2024 End: 10-21-[address] Angela Manjarrez MD [facility] Work Phone: Start: 10-21-2024 End: 10-21-2024 Patient encounter procedure Marbella Gomez CIPHER EXPERT-C -Pulmonary Services/Neurology Work Phone: Start: 10-21-2024 End: 10-21-2024 [facility] Start: 09-19-2024 End: 09-19-2024 [facility] Start: 09-19-2024 End: 09-19-[address] Rubio Blanc MD -[facility] Work Phone: Start: 08-25-2024 End: 08-25-[address] Angela Manjarrez MD -[facility] Work Phone: Start: 08-25-2024 End: 08-25-2024 ambulatory [facility] Start: 07-11-2024 ambulatory [facility] Start: 07-11-2024 Non-patient / Non-visit Dr. Mark landin MD -[facility] Start: 07-11-2024 End: 07-11-[address] Mark Dacosta MD -Cardiovascular Services Work Phone: Start: 07-11-2024 End: 07-11-2024 ambulatory Angela Manjarrez Facility:[facility] Start: 07-08-2024 End: 07-11-2024 ambulatory ZAHRA VAZQUEZ Facility:[facility] Start: 07-08-2024 End: 07-08-2024 Patient encounter procedure Zahra Vazquez Work Phone: Podiatry Comment on above: Onychomycosis (Prima ry Dx); Onychocryptosis; Pain in toe of left foot; Pain in toe of right foot; Diabetic polyneuropathy associated with type 2 diabetes mellitus (HCC) Start: 06-20-2024 End: 06-20-2024 ambulatory Angela Manjarrez Facility:[facility] Start: 06-16-2024 End: 06-16-2024 ambulatory Mark Dacosta Facility:[facility] Start: 06-07-2024 End: 06-07-2024 ambulatory Angela NORRIS Facility:[facility] Start: 05-25-2024 End: 05-25-2024 ambulatory Angela NORRIS Facility:[facility] Start: 04-01-2024 End: 04-01-2024 ambulatory SELF Facility:[facility] Start: 04-01-2024 End: 04-01-2024 Patient encounter procedure Zahra Vazquez Work Phone: Podiatry Comment on above: Diabetic polyneuropa thy associated with type 2 diabetes mellitus (HCC) (Primary Dx); Onychomycosis; Onychocryptosis; Pain in toe of left foot; Pain in toe of right foot Start: 02-25-2024 End: 02-25-2024 ambulatory Angela NORRIS Facility:[facility] Start: 10-27-2023 ambulatory [facility] [place] Start: 09-17-2023 End: 09-17-[address] Angela Manjarrez [facility] Work Phone: Start: 09-17-2023 End: 09-17-[address] Angela Manjarrez [facility] Work Phone: Start: 08-28-2023 End: 08-28-[address] [facility] Start: 08-28-2023 End: 08-28-[address] Angela Manjarrez [facility] Work Phone: Start: 06-23-2023 Non-patient / Non-visit Dr. Angela Harrell [facility] Work Phone: Start: 06-23-2023 Non-patient / Non-visit Dr. Angela Harrell [facility] Start: 06-23-2023 End: 06-23-[address] [facility] Start: 06-23-2023 End: 06-23-[address] [facility] Work Phone: Start: 06-19-2023 End: 06-19-[address] Angela Manjarrez [facility] Work Phone: Start: 06-01-2023 End: 06-01-[address] [facility] Start: 06-01-2023 End: 06-01-[address] [facility] Start: 05-20-2023 End: 05-20-[address] Angela Manjarrez [facility] Work Phone: Start: 05-11-2023 ambulatory Sarah Birmingham [facility] Comment on above: Population Health Na [facility] Outreach (ACO BP AND DM) Start: 03-02-2023 End: 03-02-2023 ambulatory [facility] Work Phone: Start: 03-02-2023 End: 03-02-2023 Departed Referred [facility] Work Phone: Start: 03-02-2023 Registered Referred [facility] Work Phone: Start: 01-13-2023 ambulatory Davon clark MD Work Phone: Internal [facility] Start: 01-02-2023 End: 01-02-2023 ambulatory [facility] Work Phone: Start: 01-02-2023 End: 01-02-2023 Departed Referred [facility] Work Phone: Start: 12-02-2022 End: 12-02-2022 ambulatory [facility] Work Phone: Start: 12-02-2022 End: 12-02-2022 Departed Referred [facility] Start: 12-02-2022 Registered Referred [facility] Start: 12-01-2022 End: 12-01-2022 ambulatory [facility] Work Phone: Start: 12-01-2022 End: 12-01-2022 Patient encounter procedure [facility]-Pulmonary Services/Neurology Start: 11-12-2022 End: 11-12-2022 ambulatory [facility] Work Phone: Start: 11-12-2022 End: 11-12-2022 Departed Referred [facility] Start: 11-11-2022 ambulatory Davon clark MD Work Phone: Internal [facility] Start: 09-28-2022 End: 09-28-[address] Ori Torres Work Phone: [facility] Work Phone: Start: 09-28-2022 End: 09-28-[address] Ori Torres Work Phone: [facility] Start: 09-26-2022 End: 09-26-[address] Ori Torres Work Phone: [facility] Start: 09-03-2022 End: 09-03-[address] Oir Torres Work Phone: [facility] Start: 08-27-2022 End: 08-27-[address] Ori Torres Work Phone: [facility] Start: 07-25-2022 End: 07-25-[address] Ori Torres Work Phone: [facility] Start: 07-21-2022 End: 07-21-2022 ambulatory [facility] Work Phone: Start: 07-21-2022 End: 07-21-2022 Departed Referred [facility] Start: 05-14-2022 ambulatory Daovn clark MD Work Phone: Internal [facility] Start: 03-27-2022 End: 03-27-[address] Davon Calzada Work Phone: [facility] Start: 03-19-2022 End: 03-19-[address] Davon Calzada Work Phone: [facility] Work Phone: Start: 03-19-2022 End: 08-17-[address] 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 [facility] Comment on above: Post-operative state (Primary Dx); Lichen planus Start: 02-05-2022 End: 02-05-2022 Patient encounter procedure Indigo Tran POWER PLANT OPERATOR APPRENTICE.WO[employer] C[employer]SMAN Work Phone: [employer] REPA[employer] [facility] Comment on above: Post-operative state (Primary Dx) Start: 01-23-2022 Telephone encounter Viral Ibarra x POWER PLANT OPERATOR APPRENTICE.WO[employer] CRAFTSMAN Work Phone: Urogynecology Comment on above: Patient Update Start: 01-17-2022 Telephone encounter Maricel hensley MD Work Phone: Endocrinology Comment on above: Question Start: 01-14-2022 Telephone encounter Davon jorge MD Work Phone: [facility] [place] Comment on above: Forms Start: 01-13-2022 End: 01-13-2022 Patient encounter procedure Maricel Miller MD Work Phone: [employer] [facility] Comment on above: Lichen planus (Prima ry Dx); Vaginal atrophy; Labia minora agglutination Start: 01-07-2022 Telephone encounter Sveta Eid MD Work Phone: OB/Gynecology Comment on above: UTI Start: 12-25-2021 End: 12-25-2021 Patient encounter procedure Indigo Tran POWER PLANT OPERATOR APPRENTICE.WO[employer] CRA[employer]SMAN Work Phone: [employer]FT [employer] REPA[employer] [facility] Comment on above: Lichen planus (Prima ry Dx); Labia minora agglutination; History of UTI; Vaginal atrophy Start: 12-16-2021 End: 12-16-2021 Patient encounter procedure Davon Calzada MD Work Phone: Internal [facility] [place] Comment on above: Essential hypertensi on (Primary Dx); Diabetes mellitus without complication (HCC); Other hyperlipidemia Start: 12-10-2021 Telephone encounter Cami arriaza APRN.WO[employer] CRAFTSMAN Work Phone: OB/Gynecology Comment on above: Results; New Medicat ion Start: 12-05-2021 End: 12-05-2021 Patient encounter procedure Cami Lamahrie SILVANA.WO[employer] CRAFTSMAN Work Phone: OB/Gynecology Comment on above: Dermatitis of vulva (Primary Dx); Vulvar pruritus; Labia minora agglutination; Lichen planus; Urinary dribbling Start: 12-05-2021 Telephone encounter Cami Xavier arriaza APRN.[employer] Work Phone: OB/Gynecology Comment on above: Medication Question Start: 11-04-2021 Telephone encounter Davon jorge MD Work Phone: Family Medicine [place] Comment on above: Medication Problem Start: 11-02-2021 ambulatory Jonathan Malcolm RN NURSE WHEEL ALIGNMENT TECHNICIAN Comment on above: Urinary Problem Start: 10-25-2021 End: 10-25-2021 Patient encounter procedure Davon Calzada MD Work Phone: Internal Medicine [place] Comment on above: Urticaria (Primary D x); Gastroesophageal reflux disease without esophagitis; Diabetes mellitus without complication (HCC) Start: 10-21-2021 Telephone encounter Davon jorge MD Work Phone: Internal Medicine [place] Comment on above: Patient Update; Alannah ent Question Start: 10-12-2017 End: 10-13-2017 Ambulatory MARBELLA HOLLINS Facility:[facility] Start: 07-12-2007 End: 01-01-2012 Patient encounter status Zahra Vazquez Work Phone: [facility] Procedures Date Procedure Procedure Detail Performing Clinician Start: 11-14-2024 Evaluation of diagno stic study results Dr. Angela Manjarrez MD Start: 11-03-2024 Plain chest X-ray Dr. Gurpreet Manjarrez MD Start: 11-03-[address] Angela Manjarrez MD Start: 08-25-2024 Measurement of renal function Dr. Angela Manjarrez MD Comment on above: GFR Calc Start: 12-05-2021 Urnls dip stick/tabl et rgnt auto w/o microscopy Cami Farris APRN.[employer] Work Phone: Start: 06-12-2021 Adult depression scr eening assessment Davon Calzada MD Work Phone: Start: 09-07-2019 Colonoscopy Davon Keenan MD Work Phone: Start: 06-16-2018 Mammography Davon Keenan MD Work Phone: Urine culture Dr. Ori mart Work Phone: Plan of Treatment Date Care Activity Detail Author Start: 09-07-2029 Colonoscopy COLONOSCOPY [facility] Start: 09-07-2029 COLORECTAL CANCER SCREENING COLORECTAL CANCER SCREENING [facility] Start: 09-07-2029 Screening for malign ant neoplasm of colon [facility] Start: 07-08-2025 Diabetic foot examination Diabetic Foot Exam [facility] Start: 11-03-2024 [facility] Start: 10-07-2024 End: 10-07-2024 Patient encounter procedure 10/07/2024 2:20 PM EST Office Visit Podiatry [address] [place], [place] [id number] Zahra Vazquez [address] [id number] 3 month follow up nail care Podiatry Comment on above: 3 month follow up na mt care Start: 07-08-2024 End: 07-08-2024 Patient encounter procedure 07/08/2024 2:20 PM EST Office Visit Podiatry [address] [place], [place] [id number] Zahra Vazquez [address] [place], [place] [id number] 3 month follow up nail care Podiatry Comment on above: 3 month follow up na mt care Start: 05-12-2024 Glaucoma screening Dilated Retinal E xam [facility] Start: 04-03-2024 Covid-19 Vaccine ( season) Covid-19 Vaccine ( season) [facility] Start: 04-03-2024 Influenza vaccination Influenza Vacc ine (#1) [facility] Start: 08-03-2023 Advance Directive Discussion Advance Directive Discussion [facility] Start: 08-03-2023 Depression Assessment Depression Ass essment [facility] Start: 04-03-2023 Covid-19 Vaccine () Covid-19 Vaccine () [facility] Start: 04-03-2023 [facility] Start: 01-13-2023 End: 03-15-2023 ALBUMIN/CREAT RATIO RND UR ALBUMIN/CREAT RATIO RND UR Lab Routine Diabetes mellitus without complication (HCC) Expected: 01/13/2023, Expires: 03/15/2023 [facility] Work Phone: Comment on above: Expected: 01/13/2023 , Expires: 03/15/2023 Start: 01-13-2023 End: 03-15-2023 Hemoglobin A1c in Blood HGB A1C Lab Routine Diabetes mellitus without complication (HCC) Expected: 01/13/2023, Expires: 03/15/2023 [facility] Work Phone: Comment on above: Expected: 01/13/2023 , Expires: 03/15/2023 Start: 01-08-2023 RSV Vaccine (1 - 1-d ose 75+ series) RSV Vaccine (1 - 1-dose 75+ series) [facility] Start: 12-16-2022 ANNUAL PCP TEAM BARREL CLEANER LIZETH DISEASE VISIT ANNUAL PCP TEAM CHRONIC DISEASE VISIT [facility] Start: 12-16-2022 BP CONTROLLED (<130/80) BP CONTROLLE D (<130/80) [facility] Start: 12-16-2022 Hepatitis B surface antibody level LDL CHOLESTEROL [facility] Start: 11-11-2022 End: 01-11-2023 ALBUMIN/CREAT RATIO RND UR ALBUMIN/CREAT RATIO RND UR Lab Routine Diabetes mellitus without complication (HCC) Expected: 11/11/2022, Expires: 01/11/2023 [facility] Work Phone: Comment on above: Expected: 11/11/2022 , Expires: 01/11/2023 Start: 11-11-2022 End: 01-11-2023 Hemoglobin A1c in Blood HGB A1C Lab Routine Diabetes mellitus without complication (HCC) Expected: 11/11/2022, Expires: 01/11/2023 [facility] Work Phone: Comment on above: Expected: 11/11/2022 , Expires: 01/11/2023 Start: 10-25-2022 ANNUAL PCP TEAM BARREL CLEANER LIZETH DISEASE VISIT ANNUAL PCP TEAM CHRONIC DISEASE VISIT [facility] Start: 09-24-2022 ANNUAL PCP TEAM BARREL CLEANER LIZETH DISEASE VISIT ANNUAL PCP TEAM CHRONIC DISEASE VISIT [facility] Start: 08-03-2022 ADVANCE DIRECTIVE DISCUSSION ADVANCE DIRECTIVE DISCUSSION [facility] Start: 08-03-2022 DEPRESSION ASSESSMENT DEPRESSION ASS ESSMENT [facility] Start: 06-18-2022 Hemoglobin A1c measurement HbA1C [facility] Start: 06-18-2022 Hemoglobin A1c/Hemoglobin.total in Blood HBA1C [facility] Start: 06-12-2022 Adult depression screening assessment DEPRESSION SCREENING [facility] Start: 06-12-2022 Hepatitis B screening URINE ALBUMIN:CREATININE RATIO [facility] Start: 04-03-2022 Hepatitis C antibody , confirmatory test DILATED RETINAL EXAM [facility] Start: 04-03-2022 Influenza vaccination INFLUENZA (#1) [facility] Start: 03-14-2022 3 comp foot exam completed DIABETIC FOOT EXAM [facility] Start: 03-14-2022 Diabetic foot examination Diabetic Foot Exam [facility] Start: 01-22-2022 COVID-19 VACCINE (4 - Booster for Moderna series) COVID-19 VACCINE (4 - Booster for Moderna series) [facility] Start: 01-07-2022 End: 03-09-2022 Bacteria identified in Urine by Culture URINE CULTURE Microbiology Routine Urinary frequency Dysuria Expected: 01/07/2022, Expires: 03/09/2022 [facility] Work Phone: Comment on above: Expected: 01/07/2022 , Expires: 03/09/2022 Start: 01-07-2022 End: 03-09-2022 Urinalysis complete panel - Urine URINALYSIS, WITH MICROSCOPIC Lab Routine Urinary frequency Dysuria Expected: 01/07/2022, Expires: 03/09/2022 [facility] Work Phone: Comment on above: Expected: 01/07/2022 , Expires: 03/09/2022 Start: 12-16-2021 End: 02-15-2022 Basic metabolic 2000 panel - Serum or Plasma [facility] Work Phone: Comment on above: Expected: 12/16/2021 , Expires: 02/15/2022 Start: 12-16-2021 End: 02-15-2022 Hemoglobin A1c/Hemoglobin.total in Blood [facility] Work Phone: Comment on above: Expected: 12/16/2021 , Expires: 02/15/2022 Start: 12-16-2021 End: 02-15-2022 LIPID PANEL, NONFASTING [facility] Work Phone: Comment on above: Expected: 12/16/2021 , Expires: 02/15/2022 Start: 12-10-2021 Hemoglobin A1c/Hemoglobin.total in Blood HBA1C [facility] Start: 11-27-2021 BP CONTROLLED (<130/80) BP CONTROLLE D (<130/80) [facility] Start: 11-27-2021 SHINGRIX VACCINE (1 of 2) SHINGRIX VACCINE (1 of 2) [facility] Comment on above: Postponed from 01/08 (Declined at this time) Start: 11-27-2021 Urine microalbumin profile DTAP,TDAP,TD (1 - Tdap) [facility] Comment on above: Postponed from 11/23 (Declined at this time) Start: 11-19-2021 COVID-19 VACCINE (4 - Booster for Moderna series) COVID-19 VACCINE (4 - Booster for Moderna series) [facility] Start: 11-19-2021 Covid-19 Vaccine (4 - Moderna series) Covid-19 Vaccine (4 - Moderna series) [facility] Start: 08-03-2021 ADVANCE DIRECTIVE DISCUSSION ADVANCE DIRECTIVE DISCUSSION [facility] Start: 08-03-2021 DEPRESSION ASSESSMENT DEPRESSION ASS ESSMENT [facility] Start: 03-19-2021 Hepatitis B surface antibody level LDL CHOLESTEROL [facility] Start: 06-21-2020 FECAL OCCULT BLOOD FECAL OCCULT BLOO D [facility] Start: 06-21-2020 Screening for malign ant neoplasm of colon Fecal Occult Blood [facility] Start: 06-16-2019 Mammography MAMMOGRAM [facility] Start: 2008 Hepatitis B Vaccine (1 of 3 - Risk 3-dose series) Hepatitis B Vaccine (1 of 3 - Risk 3-dose series) [facility] Start: 2008 RSV Vaccine (1 - 1-d ose 60+ series) RSV Vaccine (1 - 1-dose 60+ series) [facility] Start: 11-24-2007 Urine microalbumin profile [facility] Start: 01-08-1998 SHINGRIX VACCINE (1 of 2) SHINGRIX VACCINE (1 of 2) [facility] Start: 01-08-1993 COLOGUARD (FIT-DNA) COLOGUARD (FIT-D NA) [facility] Start: 01-08-[address] COLONOGRAPHY [facility] Start: 01-08-1993 Screening for malign ant neoplasm of colon [facility] Start: 01-08-1993 SIGMOIDOSCOPY SIGMOIDOSCOPY [facility] Start: 01-08-1966 Anxiety Screening Anxiety Screening [facility] Start: 01-08-1966 Depression Screening Depression Scre ening [facility] Bacteria identified in Urine by Culture URINE CULTURE Microbiology Routine Urinary dribbling 12/05/2021 3:[address] [facility] Work Phone: Patient Education ED [facility] Work Phone: Patient referral [facility] Work Phone: End: 06-13-2023 Screening mammography bi 2-view breast inc cad YANELIS SCREENING Radiology Routine Encounter for screening mammogram for breast cancer 1 Occurrences starting 05/14/2022 until 06/13/2023 [facility] Work Phone: Comment on above: 1 Occurrences starti ng 05/14/2022 until 06/13/2023 [facility] Immunization Date Immunization Notes Care Provider Jered howe 09-24-2021 COVID-19 vaccine, ag e 12+ yr ([employer] [facility]) Davon Calzada MD Work Phone: [facility] 06-12-2021 influenza, high-dose , quadrivalent vaccine (FLUZONE HIGH DOSE QUADRIVALENT) Davon Calzada MD Work Phone: [facility] Work Phone: 06-12-2021 influenza virus vacc ine, unspecified formulation Sarah Birmingham MA [facility] 05-10-2020 influenza, high-dose , quadrivalent vaccine (FLUZONE HIGH DOSE QUADRIVALENT) Davon Calzada MD Work Phone: [facility] Work Phone: 05-24-2019 influenza, high dose seasonal, preservative-free Davon Calzada MD Work Phone: [facility] 06-09-2018 influenza, high dose seasonal, preservative-free Davon Calzada MD Work Phone: [facility] 05-12-[address] Davon Calzada Work Phone: [facility] 05-12-2018 influenza, seasonal, injectable, preservative free Davon Calzada MD Work Phone: [facility] 06-12-2017 influenza, high dose seasonal, preservative-free Davon Calzada MD Work Phone: [facility] 06-20-2016 influenza, high dose seasonal, preservative-free Davon Calzada MD Work Phone: [facility] Work Phone: 12-17-2015 pneumococcal conjuga te vaccine, 13 valent Davon Calzada MD Work Phone: [facility] 06-15-2015 influenza, high dose seasonal, preservative-free Davon Calzada MD Work Phone: [facility] Work Phone: 06-06-2014 influenza, seasonal, injectable Davon Calzada MD Work Phone: [facility] 05-19-2013 influenza virus vacc ine, unspecified formulation Davon Calzada MD Work Phone: [facility] 01-25-2013 pneumococcal polysaccharide vaccine, 23 valent Davon Calzada MD Work Phone: [facility] Work Phone: 05-10-2012 influenza virus vacc ine, whole virus Davon Calzada MD Work Phone: [facility] Work Phone: 04-26-2009 influenza virus vacc ine, unspecified formulation Davon Calzada MD Work Phone: [facility] 06-02-2008 influenza virus vacc ine, whole virus Davon Calzada MD Work Phone: [facility] Work Phone: 04-06-2008 pneumococcal polysaccharide vaccine, 23 valent Davon Calzada MD Work Phone: [facility] 04-06-2008 tuberculin skin test ; purified protein derivative solution, intradermal Zahra Vazquez Work Phone: [facility] 11-23-2007 tetanus and diphther ia toxoids, adsorbed, preservative free, for adult use (2 Lf of tetanus toxoid and 2 Lf of diphtheria toxoid) Davon Calzada MD Work Phone: [facility] 06-03-2007 influenza virus vacc ine, unspecified formulation Davon Calzada MD Work Phone: [facility] Payers Date Payer Category Payer Medicaid [id number] 2024 Self-pay [id number] 2022 Medicaid [employer] [id number] 2022-Present [phone] [address] [place] [address] Medicaid [id number] 2022 Unknown [id number] 2014 Unknown [id number] 2013 Medicare MEDICARE MEDICAR E A AND B [id number] 2013-Present [phone] [address] [address] [place] [address] Medicare [id number] 2013 Medicare [id number] Medicare MEDICARE PART A B [id number] Unknown AULTCARE [id number] Unknown [id number] Unknown [id number] Unknown [id number] Unknown [id number] Unknown [id number] Unknown [id number] Unknown [id number] Unknown [id number] Unknown [id number] Unknown [id number] Unknown [id number] Unknown [id number] Unknown [id number] Unknown [id number] Unknown [id number] [id number] Unknown [id number] Social History Date Type Detail Facility Start: 05-20-2023 End: 11-03-2024 Tobacco smoking status NHIS Never smoked tobacco [facility] Work Phone: Start: 09-24-2021 End: 04-01-2024 Alcohol intake Current non-drinker of alcohol (finding) [facility] Start: 1950 Sex Assigned At Not on file [facility] Start: 10-13-2021 End: 01-21-2022 Exposure to SARS-CoV-2 (event) Not sure [facility] Start: 03-27-2022 End: 05-20-2023 Tobacco smoking status ILIS Unknown if ever smoked [facility] Start: 01-06-2019 Occasional [facility] Start: 01-06-2019 None [facility] Start: 01-04-2020 Alone [facility] Start: 09-05-2019 Non-smoker [facility] Start: 1950 Sex Assigned At Female [facility] Start: 02-19-2022 End: 08-29-2022 History of Social function [facility] Work Phone: Start: 02-19-2022 End: 08-29-2022 Tobacco use panel [facility] Work Phone: Adult Depression Screening Assessment 0 [facility] Work Phone: Start: 10-28-2024 End: 11-03-2024 Sex Female (finding) [facility] Medical Equipment Procedure Code Equipment Code Equipment Origin al Text Equipment Identifier Dates Test blood sugar(s) 1 times daily. Dx: Type 2 DM - Controlled E11.9 Insulin: No [id number], [id number] Start: 11-27-2020 Comment on above: Test blood sugar(s) 1 times daily. Dx: Type 2 DM - Controlled E11.9 Insulin: No Mental Status Date Assessment Result Facility 11-03-2024 Cognitive function Voice/Name [facility] Work Phone: Clinical Notes 09-28-2012 to 11-25-2024 Note Date & Type Note Facility 11-25-2024 Note HNO ID: [id number] Author: ZAHRA VAZQUEZ, ? Service: ? Author Type: Physician Type: Progress Notes Filed: 11/25/2024 16:00 Note Text: Last saw pcp: not in chart Subjective: Patient presents to clinic c/o painful toenails. They state that the nails are especially painful with shoe gear and pressure. Patient states that nails left 3rd are painful. Patient admits to being diabetic and states. No other pedal complaints at this time. Patient states no change in medications or medical history since last visit. Objective: Patient presents to clinic ambulating in [facility] Vasc: DP and PT pulses are faintly palpable bilateral. CFT is less than 5 seconds bilateral. Skin temperature is warm to cool proximal to distal bilateral. There is moderate edema or varicosities noted. Neuro: Protective sensation is decreased to the foot and toes when tested with the 5.07 SWM bilateral. Vibratory sensation is absent at the hallux IPJ bilateral. The hallux is downgoing bilateral. Derm: Nails 1-5 right and 2-5 left are discolored-yellow, thick, crumbly, dystrophic and with subungal debris. Skin is of normal turgor, texture and hair growth is absent bilateral. There are no hyperkeratosis, ulcerations, scars, verruca or other lesions noted. Ortho: Muscle strength is 5/5 for all pedal groups tested. Ankle joint DF is decreased with the knee extended with no pain or crepitus noted. 1st MPJ ROM is decreased bilateral. Assessment: (B35.1) Onychomycosis (primary encounter diagnosis) (L60.0) Onychocryptosis (M79.675) Pain in toe of left foot (M79.674) Pain in toe of right foot (E11.42) Diabetic polyneuropathy associated with type 2 diabetes mellitus (HCC) Plan: Patient was seen and evaluated. Nails 1-5 right and 2-5 left were debrided in length and thickness. Discussed options for left 3rd toenail not limited to periodic debridement vs removal. Patient may consider removal. If she were interested in removal, would get pvr prior. I stressed the importance of avoiding barefoot walking, wearing good shoes and inspection of feet. I discussed how this patient suffers from neuropathy and that it is important that she monitor for any open wounds. If she develops any issues, she is to contact our office immediately and we will have them seen. Patient was instructed on the continued importance of diabetic foot care along with proper diet and keeping their blood sugar under control to prevent complications. Patient is to RTC in 3-4 months. Zahra Vazquez DPM [facility] 11-25-2024 Note HNO ID: [id number] Author: KATELIN BREEN RN Service: ? Author Type: Registered Nurse Type: Progress Notes Filed: 11/25/2024 16:00 Note Text: Patient presents with: Left Foot - Established Patient, Follow Up, Diabetic Foot Care Right Foot - Established Patient, Follow Up, Diabetic Foot Care Patient presents for follow up diabetic foot/nail care. [facility] 07/08/24 [facility] 11-14-2024 Evaluation note Diagnosis Onset Date Resolution Carotid bruit chronic November 14, 2024 2:04pm Essential (primary) hypertension chronic November 14, 2024 2:04pm History of aortic valve replacement with bioprosthetic valve January, chronic November 14, 2024 2:04pm HLD (hyperlipidemia) chronic Apri l 2024 2:04pm Paroxysmal atrial fibrillation chronic November 14, 2024 2:04pm Presence of permanent cardiac pacemaker January 07, 2019 chronic November 14, 2024 2:04pm [facility] Work Phone: 1(281) 786-837304-03-2025 Radiology Diagnostic study note [facility] [address] [place], [place] [address] Chest 1 View (Portable) MR#: [id number] Acct: [id number] Name: CLARI STEPHENS Rep #: [id number] : [id number] F 74 From: Reagan Gray MD PCP: Angela Manjarrez MD Status: REG ER Study:Chest 1 View (Portable) Date of Exam: 11/03/24 Exam# [id number] Ordering Dr: Jani Hale DO PROCEDURE: CHEST 1 VIEW (PORTABLE) 11/03/2024 REASON FOR EXAM: PALPI History of atrial fibrillation. TECHNIQUE: Frontal view of the chest. COMPARISON: None FINDINGS: Hardware: EKG electrodes. Left-sided dual-chamber pacemaker. Midline sternotomy. Heart: The heart size is normal. Lungs: The lungs are clear. Bones: Degenerative changes are identified within the thoracic spine. Other: RAD/Chest 1 View (Portable) IMPRESSION: No Acute Findings. Reading Location: [place] [address] CC: Dr. Jani Hale DO; Angela Manjarrez MD ~ Shank Archer: Signed [facility]12-06-2024 Instructions* Patient Instructions* Zahra Vazquez - 07/08/2024 2:23 PM EST Diabetes Foot Care Instructions When you have diabetes, proper foot care is very important. Poor foot care may lead to amputation of a foot or leg. As a person with diabetes, you are more vulnerable to foot problems, because diabetes can damage your nerves and reduce blood flow to your feet. Here are some diabetes foot care tips to follow: Wash and Dry Your Feet Daily Use mild soaps Use warm water Pat your skin dry; do not rub. Thoroughly dry your feet. After washing, use lotion on your feet to prevent cracking. Do not put lotion between your toes. Examine Your Feet Each Day Check the tops and bottoms of your feet. Have someone else look at your feet if you cannot see them. Check for dry, cracked skin. Look for blisters, cuts, scratches, or other sores. Check for redness, increased warmth, or tenderness when touching any area of your feet. Check for ingrown toenails, corns, and calluses. If you get a blister or sore from your shoes, do not "pop" it. Apply a bandage and wear a differentpair of shoes. Take Care of Your Toenails Cut toenails after bathing, when they are soft. Cut toenails straight across and smooth with a nail file. Avoid cutting into the corners of toes. Do not cut cuticles. If you have neuropathy (or decreased sensation in your feet) a overhead crane technician should always cut your toenails. Be Careful When Exercising Walk and exercise in comfortable shoes. Do not exercise when you have open sores on your feet. Protect Your Feet With Shoes and Socks Never go barefoot. Always protect your feet by wearing shoes or hard-soled slippers or footwear. Avoid shoes with high heels and pointed toes. Avoid shoes that expose your toes or heels (such as open-toed shoes or sandals). These types of shoes increase your risk for injury and potential infections. Try on new footwear with the type of socks you usually wear. Do not wear new shoes for more than an hour at a time. Change your socks daily. Look and feel inside your shoes before putting them on to make sure there are no foreign objects orrough areas. Avoid tight socks. Wear natural-fiber socks (cotton, wool, or a cotton-wool blend). Wear special shoes if your health care provider recommends them. Wear shoes/boots that will protect your feet from various weather conditions (cold, moisture, etc.). Make sure your shoes fit properly. If you have neuropathy (nerve damage), you may not notice that your shoes are too tight. Perform the "footwear test" described below. Footwear Test Use this simple test to see if your shoes fit correctly: Stand on a piece of paper. (Make sure you are standing and not sitting, because your foot changes shape when you stand.) Trace the outline of your foot. Trace the outline of your shoe. Compare the tracings: Is the shoe too narrow? Is your foot crammed into the shoe? The shoe should be at least 1/2 inch longer than your longest toe and as wide as your foot. Proper Shoe Choices The following types of shoes are best for people with diabetes Closed toes and heels Leather uppers without a seam inside At least 1/2 inch extra space at the end of your longest toe Inside of shoe should be soft with no rough areas Outer sole should be made of stiff material Shoes should be at least as wide as your feet Tips for Foot Care in Diabetes Don't wait to treat a minor foot problem if you have diabetes. Follow your health care provider's guidelines and first aid guidelines. Report foot injuries and infections to your health care provider immediately. Check water temperature with your elbow, not your foot. Do not use a heating pad on your feet. Do not cross your legs. Do not self-treat your corns, calluses, or other foot problems. Go to your health care provider or overhead crane technician to treat these conditions. documented in this encounterBrec[facility]ville [facility] NoteHNO ID: [id number] Author: ZAHRA VAZQUEZ, ? Service: ? Author Type: Physician Type: Progress Notes Filed: 07/08/2024 14:33 Note Text: Last saw pcp: not in chart Subjective: Patient presents to clinic c/o painful toenails. They state that the nails are especially painful with shoe gear and pressure. Patient states that nails left 2nd and 3rd toenail is painful. Patient admits to being diabetic. No other pedal complaints at this time. Patient states no change in medications or medical history since last visit. Objective: Patient presents to clinic ambulating in avia tennis shoes Vasc: DP and PT pulses are palpable bilateral. CFT is less than 5 seconds bilateral. Skin temperature is warm to cool proximal to distal bilateral. There is no edema or varicosities noted. Neuro: Protective sensation is intact to the foot and toes when tested with the 5.07 SWM bilateral. Vibratory sensation is slight decreased at the hallux IPJ bilateral. The hallux is downgoing bilateral. Derm: Nails 1-5 right and 2-5 left are painful, discolored-yellow, thick, crumbly, dystrophic and with subungal debris. Skin is of normal turgor, texture and hair growth is decreased bilateral. There are no hyperkeratosis, ulcerations, scars, verruca or other lesions noted. Ortho: Muscle strength is 5/5 for all pedal groups tested. Ankle joint DF is full with the knee extended with no pain or crepitus noted. 1st MPJ ROM is decreased bilateral. Assessment: Onychomycosis with pain Diabetes Plan: Patient was seen and evaluated. Nails 1-5 right and 2-5 left were debrided in length and thickness. She complains of pain primarily to the left 2nd and left 3rd nail. If these bother her, she could consider nail removal of the left 2nd and 3rd toe. She had this done on the hallux and has done well. She will consider. Patient was instructed on the continued importance of diabetic foot care along with proper diet and keeping their blood sugar under control to prevent complications. I discussed the importance of avoiding barefoot walking, wearing good shoes, inspection of feet. These are necessary to help lower risks of developing foot complications. Patient is to RTC in 3-4 months. Zahra Vazquez [facility]12-06-2024 History of Present illness Narrative* Zahra Vazquez - 07/08/2024 2:22 PM EST Last saw pcp: not in chart Subjective: Patient presents to clinic c/o painful toenails. They state that the nails are especially painful with shoe gear and pressure. Patient states that nails left 2nd and 3rd toenail is painful. Patient admits to being diabetic. No other pedal complaints at this time. Patient states no change in medications or medical history since last visit. Objective: Patient presents to clinic ambulating in avia tennis shoes Vasc: DP and PT pulses are palpable bilateral. CFT is less than 5 seconds bilateral. Skin temperature is warm to cool proximal to distal bilateral. There is no edema or varicosities noted. Neuro: Protective sensation is intact to the foot and toes when tested with the 5.07 SWM bilateral.Vibratory sensation is slight decreased at the hallux IPJ bilateral. The hallux is downgoing bilateral. Derm: Nails 1-5 right and 2-5 left are painful, discolored-yellow, thick, crumbly, dystrophic and with subungal debris. Skin is of normal turgor, texture and hair growth is decreased bilateral. Thereare no hyperkeratosis, ulcerations, scars, verruca or other lesions noted. Ortho: Muscle strength is 5/5 for all pedal groups tested. Ankle joint DF is full with the knee extended with no pain or crepitus noted. 1st MPJ ROM is decreased bilateral. Assessment: Onychomycosis with pain Diabetes Plan: Patient was seen and evaluated. Nails 1-5 right and 2-5 left were debrided in length and thickness. She complains of pain primarily to the left 2nd and left 3rd nail. If these bother her, she could consider nail removal of the left 2nd and 3rd toe. She had this done on the hallux and has done well.She will consider. Patient was instructed on the continued importance of diabetic foot care along with proper diet andkeeping their blood sugar under control to prevent complications. I discussed the importance of avoiding barefoot walking, wearing good shoes, inspection of feet. These are necessary to help lower risks of developing foot complications. Patient is to RTC in 3-4 months. Zahra Vazquez DPM documented in this encounterBrecksville [facility]08-30-[facility] NoteHNO ID: [id number] Author: ZAHRA VAZQUEZ, ? Service: ? Author Type: Physician Type: Progress Notes Filed: 04/01/2024 13:34 Note Text: Initial Office Visit Subjective: This 74 year old female presents to clinic for diabetic foot check. Patient has the following complaints: painful toenail, right hallux. Patient admits to being diabetic for multiple years now. Patient -B/T/N in feet at this time. Patient -pain in legs when walking. No other pedal complaints at this time. No change in medications or medical history since last visit. PAIN EVALUATION 04/01/2024 1310 Pain Level: 3 Pain Location: Toe Description: Sore Duration Units: Months Frequency: Intermittent Hemoglobin A1C (%) Date Value 12/16/2021 6.4 06/12/2021 6.0 05/10/2020 6.3 06/10/2019 5.9 06/12/2017 6.0 10/09/2016 6.1 Hemoglobin A1C (POCT) (%) Date Value 11/27/2020 6.0 PCP: No primary care provider on file. PAST MEDICAL HISTORY 12/03/2005: AORTIC VALVE DISORDER Comment: Oneal 12-03-05: ECG showed SB, no LVH-rec Echo to consider bicupsid AV Echo 03-09: LA 42 mm, 61%, mild LVH, mod-severe calcific -orifice 1.1 cm2, 1+ TR, RVSP 31 Go 02-07: rec repeat Echo in 6 mo (reordered in 01-09 as pt did not do test) Echo 02-08: 65%, LVH, trivial MR, RVSP 24, mod-sev of 1 cm2 07/12/2007: ASTHMA UNSPECIFIED Comment: Amoxil 01-05 and Ketek 08-08 for URI Singulair and Albuterol started in 04-07 Rec OTC antihistamine for eye symptoms as of 01-0906/17/2007: Carpal tunnel syndrome Comment: Recommended Naprosyn and Flexeril as of [facility]: rec stopping in 06-09 Responding well to wrist splints as of 06-09 and wt loss as of 07-09: Heme positive stool 06/17/2007: HYPERLIPIDEMIA NEC/NOS Comment: Zocor in 01-05 and Lipitor as of 04-09 LDL 100, HDL 36, TG 186 in 05-08 LDL 84, HDL 36, TG 140 in 11-08 Changed to Pravastatin 40 mg in 10-09 LDL 112, HDL 38, TG 136 in 01-0906/17/2007: HYPERTENSION NOS Comment: Lisinopril started about 12-05 Creat 0.9 in 05-08, 07-10, 01-09 UA negative for protein and blood in 01-0903/04/2010: Impaired fasting glucose 03/09/2014: Lichen planus Comment: Vulva 06/08/2008: PNEUMONIA, ORGANISM NOS Comment: Lingular infiltrate by CXR, WBC 11 K in 03-10: need to repeat for clearing (pt had pneumonia clinically) CXR 06-10 showed "partial resolution" of the left lingular infiltrate: scheduled pt as need to consider CT given timeframe CT in 07-10: atelec vs scar vs infiltrate (unlikely given clinical improvement), no JEWEL (notified by phone 08-02-08) 03/03/2013: S/P aortic valve replacement 04/15/2013: Type II or unspecified type diabetes mellitus without mention of complication, not stated as uncontrolled Current Outpatient Medications Medication Sig mag hydrox/aluminum hyd/simeth (ANTACID SUSPENSION ORAL) Take by mouth. loratadine (CLARITIN) 10 mg tablet Take 10 mg by mouth once daily. apixaban (ELIQUIS ORAL) Take 5 mg by mouth. glipiZIDE 2.5 mg tablet Take 2.5 mg by mouth two times a day before meals. senna (SENOKOT) 8.6 mg tab Take 8.6 mg by mouth two times a day. tiZANidine HCl (ZANAFLEX) 2 mg capsule Take 2 mg by mouth three times a day as needed. acetaminophen (TYLENOL EXTRA STRENGTH) 500 mg tablet Take 500 mg by mouth every 8 hours as needed. estradiol 0.01% estriol 0.01% topical cream (CPD) Apply 1 gram (4 clicks) vaginally twice weekly amLODIPine (NORVASC) 2.5 mg tablet Take 1 tablet by mouth once daily. pravastatin (PRAVACHOL) 40 mg tablet Take 1 tablet by mouth daily at bedtime. lisinopril (ZESTRIL, PRINIVIL) 20 mg tablet Take 1 tablet by mouth twice daily. famotidine (PEPCID) 40 mg tablet Take 1 tablet by mouth once daily. meclizine (ANTIVERT) 25 mg tab Take 1 tablet by mouth every 6 hours as needed (dizziness). clobetasol (TEMOVATE) 0.05 % ointment Apply 1 application to affected area daily at bedtime. TO AFFECTED AREA for 4 weeks. albuterol HFA (PROVENTIL HFA) 90 mcg/actuation inhaler [...] daily. Inhale one puff once daily. () estradiol (ESTRACE) 0.01 % (0.1 mg/gram) vaginal cream Use 1 g vaginally two times a week, THEN 1 g two times a week. Apply to affected area daily for 2 weeks then twice weekly.. blood sugar diagnostic (BLOOD GLUCOSE TEST) test strip Test blood sugar(s) 1 times daily. Dx: Type 2 DM - Controlled E11.9 Insulin: No Lancets lancets Test blood sugar(s) 1 times daily. Dx: Type 2 DM - Controlled E11.9 Insulin: No Blood Pressure Monitor kit Use to monitor blood pressure as directed. No current facility-administered medications for this visit. ALLERGIES Allergen Reactions (more content not included)...[facility]08-30-2024 History of Present illness Narrative* Zahra Vazquez - 04/01/2024 1:30 PM EDT Initial Office Visit Subjective: This 74 year old female presents to clinic for diabetic foot check. Patient has the following complaints: painful toenail, right hallux. Patient admits to being diabetic for multiple years now. Patient -B/T/N in feet at this time. Patient -pain in legs when walking. No other pedal complaints at this time. No change in medications or medical history since last visit. PAIN EVALUATION 04/01/2024 1310 Pain Level: 3 Pain Location: Toe Description: Sore Duration Units: Months Frequency: Intermittent Hemoglobin A1C (%) Date Value 12/16/2021 6.4 06/12/2021 6.0 05/10/2020 6.3 06/10/2019 5.9 06/12/2017 6.0 10/09/2016 6.1 Hemoglobin A1C (POCT) (%) Date Value 11/27/2020 6.0 PCP: No primary care provider on file. PAST MEDICAL HISTORY 12/03/2005: AORTIC VALVE DISORDER Comment: Oneal 12-03-05: ECG showed SB, no LVH-rec Echo to consider bicupsid AV Echo 03-09: LA 42 mm, 61%, mild LVH, mod-severe calcific -orifice 1.1 cm2, 1+ TR, RVSP 31 [place] 02-07: rec repeat Echo in 6 mo (reordered in 01-09 as pt did not do test) Echo 02-08: 65%, LVH, trivial MR, RVSP 24, mod-sev of 1 cm2 07/12/2007: ASTHMA UNSPECIFIED Comment: Amoxil 01-05 and Ketek 08-08 for URI Singulair and Albuterol started in 04-07 Rec OTC antihistamine for eye symptoms as of 01-0906/17/2007: Carpal tunnel syndrome Comment: Recommended Naprosyn and Flexeril as of [facility]: rec stopping in 06-09 Responding well to wrist splints as of 06-09 and wt loss as of 07-09: Heme positive stool 06/17/2007: HYPERLIPIDEMIA NEC/NOS Comment: Zocor in 01-05 and Lipitor as of 04-09 LDL 100, HDL 36, TG 186 in 05-08 LDL 84, HDL 36, TG 140 in 11-08 Changed to Pravastatin 40 mg in 10-09 LDL 112, HDL 38, TG 136 in 01-0906/17/2007: HYPERTENSION NOS Comment: Lisinopril started about 12-05 Creat 0.9 in 05-08, 07-10, 01-09 UA negative for protein and blood in 01-0903/04/2010: Impaired fasting glucose 03/09/2014: Lichen planus Comment: Vulva 06/08/2008: PNEUMONIA, ORGANISM NOS Comment: Lingular infiltrate by CXR, WBC 11 K in 03-10: need to repeat for clearing (pt had pneumonia clinically) CXR 06-10 showed "partial resolution" of the left lingular infiltrate: scheduled pt as need to consider CT given timeframe CT in 07-10: atelec vs scar vs infiltrate (unlikely given clinical improvement), no JEWEL (notified by phone 08-02-08) 03/03/2013: S/P aortic valve replacement 04/15/2013: Type II or unspecified type diabetes mellitus without mention of complication, not stated as uncontrolled Current Outpatient Medications Medication Sig mag hydrox/aluminum hyd/simeth (ANTACID SUSPENSION ORAL) Take by mouth. loratadine (CLARITIN) 10 mg tablet Take 10 mg by mouth once daily. apixaban (ELIQUIS ORAL) Take 5 mg by mouth. glipiZIDE 2.5 mg tablet Take 2.5 mg by mouth two times a day before meals. senna (SENOKOT) 8.6 mg tab Take 8.6 mg by mouth two times a day. tiZANidine HCl (ZANAFLEX) 2 mg capsule Take 2 mg by mouth three times a day as needed. acetaminophen (TYLENOL EXTRA STRENGTH) 500 mg tablet Take 500 mg by mouth every 8 hours as needed. estradiol 0.01% estriol 0.01% topical cream (CPD) Apply 1 gram (4 clicks) vaginally twice weekly amLODIPine (NORVASC) 2.5 mg tablet Take 1 tablet by mouth once daily. pravastatin (PRAVACHOL) 40 mg tablet Take 1 tablet by mouth daily at bedtime. lisinopril (ZESTRIL, PRINIVIL) 20 mg tablet Take 1 tablet by mouth twice daily. famotidine (PEPCID) 40 mg tablet Take 1 tablet by mouth once daily. meclizine (ANTIVERT) 25 mg tab Take 1 tablet by mouth every 6 hours as needed (dizziness). clobetasol (TEMOVATE) 0.05 % ointment Apply 1 application to affected area daily at bedtime. TO AFFECTED AREA for 4 weeks. albuterol HFA (PROVENTIL HFA) 90 mcg/actuation inhaler [...] daily. Inhale one puff once daily. () estradiol (ESTRACE) 0.01 % (0.1 mg/gram) vaginal cream Use 1 g vaginally two times a week, THEN 1 gtwo times a week. Apply to affected area daily for 2 weeks then twice weekly.. blood sugar diagnostic (BLOOD GLUCOSE TEST) test strip Test blood sugar(s) 1 times daily. Dx: Type 2 DM - Controlled E11.9 Insulin: No Lancets lancets Test blood sugar(s) 1 times daily. Dx: Type 2 DM - Controlled E11.9 Insulin: No Blood Pressure Monitor kit Use to monitor blood pressure as directed. No current facility-administered medications for this visit. ALLERGIES Allergen Reactions Penicillins Other: See Comments Childhood reaction. Tolerates cephalosporins Seasonal Allergies Intolerance Sneezing and running nose (sinus issues) PAST SURGICAL HISTORY 12/25/2016: BX BREAST W/DEVICE 1ST LESION STEREOTACTIC GUID; Left Comment: Microcalcifications-benign 09/07/2019: COLONOSCOPY FLX DX W/COLLJ SPEC WHEN PFRMD 1950: EXCISION PILONIDAL CYST/SINUS SIMPLE Comment: estimated. 01/07/2019: PACEMAKER 01/25/2013: RPLCMT PROST AORTIC VALVE OPEN XCP HOMOGRF/STENT Comment: Aortic valve replacement, Porcine 1950: TONSILLECTOMY PRIMARY/SECONDARY <AGE 12 Comment: estimated FAMILY HISTORY Problem Relation Age of Onset Diabetes Mother alive age 86 2010 Hypertension Mother Heart Mother pacemaker Cancer Father lymphoma? dec. age 60s Social History Tobacco Use Smoking status: Never Smokeless tobacco: Never Substance Use Topics Alcohol use: No Drug use: No REVIEW OF SYSTEMS GENERAL: Negative for Malaise, significant weight loss, fever RESPIRATORY: Negative for cough, wheezing and shortness of breath CARDIOVASCULAR: Negative for chest pain, leg swelling and palpitations GI: Negative for abdominal discomfort, blood in stools or black stools and change in bowel habits : Negative for dysuria, frequency and incontinence MUSCULOSKELETAL: Negative for joint pain or swelling, back pain, and muscle pain. SKIN: Negative for lesions, rash, and itching. HEMATOLOGY/LYMPHOLOGY Negative for prolonged bleeding, bruising easily, and swollen nodes. ENDOCRINE: Negative for cold or heat intolerance, polyuria, polydipsia and goiter. NEURO: negative The remainder of the review of systems is noncontributory. Objective: Patient presents to clinic ambulating in [facility] Constitutional: Pt is a well developed 74 year old female who is alert, oriented, cooperative and in no apparent distress. Eyes: Following during examination. No redness or drainage. Respiratory: RR normal and nonlabored. Even breathing. No evidence of distress. Psychology: Patient is engaged during conversation. Normal affect and mood. Does not appear depressed or anxious. Vasc: DP and PT pulses are palpable bilateral. CFT is less than 5 seconds bilateral. Skin temperature is warm to warm proximal to distal bilateral. There is no edema or varicosities noted. Hair growth present. Neuro: Protective sensation is intact to the foot and toes when tested with the 5.07 SWM bilateral.Vibratory sensation is decreased at the hallux bilateral. + Significant neurological defecits. Derm: Inspection and palpation performed. Nails 1-5 right and 2-5 left are painful, discolored-yellow, thick, crumbly, dystrophic and with subungal debris. Skin is of normal turgor and texture. Hyperkeratosis noted to not present. NO ulcerations, scars, verruca or other lesions noted. Ortho: Ankle joint DF is full with the knee extended and full with knee flexed. No pain or crepitusnoted. STJ, MTJ ROM are full and free of pain or crepitus. Muscle strength is 5/5 for dorsiflexors,plantarflexors, inverters, everters. Digital deformities include none. Assessment: (E11.42) Diabetic polyneuropathy associated with type 2 diabetes mellitus (HCC) (primary encounter diagnosis) (B35.1) Onychomycosis (L60.0) Onychocryptosis (M79.675) Pain in toe of left foot (M79.674) Pain in toe of right foot Plan: 1. Patient was seen and evaluated. 2. Patient was instructed on the continued importance of diabetic foot care along with proper diet and keeping their blood sugar under control to prevent complications. Instructions given both oral and written. 3. Toenails 1-5 right and 2-5 left debrided in length and thickness 4. F/u in 3 months Zahra Vazquez DPM * Barbie Neff LPN - 04/01/2024 1:08 PM EDT AMB ROOMING INTAKE FLOWSHEET DATA Risk Screening Do you have concerns about personal safety or safety in the home?: No Pain Pain Level: 3 Pain Location: Toe Description: Sore Duration Units: Months Frequency: Intermittent Patient presents with: Left Foot - Established Patient, nail care, New, Ingrown Toenail Right Foot - nail care, New, Ingrown Toenail Barbie Neff LPN documented in this encounterBrecksville [facility]08-30-[facility]24 NoteHNO ID: [id number] Author: BARBIE NEFF LPN Service: ? Author Type: LICENSED NURSE Type: Progress Notes Filed: 04/01/2024 13:34 Note Text: AMB ROOMING INTAKE FLOWSHEET DATA Risk Screening Do you have concerns about personal safety or safety in the home?: No Pain Pain Level: 3 Pain Location: Toe Description: Sore Duration Units: Months Frequency: Intermittent Patient presents with: Left Foot - Established Patient, nail care, New, Ingrown Toenail Right Foot - nail care, New, Ingrown Toenail [facility] History of Present illness Narrative* Audrey Clark LPN - 10/27/2023 2:32 PM EDT POPULATION HEALTH NAVIGATION OUTREACH Action/FYI Spoke to Patient's daughter, Clari Is [facility] and is seeingthe Doctor there. Reason for Outreach Care Gap/HCC or Scheduling Wellness Visits Care Gaps due: Physical Annual Wellness Visit Follow-up Appointment Patient Contacted: Spoke to patient/parent/or legal guardian Patient identified by name and : Yes Care Gap/HCC/Scheduling Wellness actions taken: Navigation Signature: Audrey Clark LPN October 27, 2023 2:32 PM documented in this encounterBrecksville [facility]10-09-2023 History of Present illness Narrative* Sarah Birmingham MA - 05/11/2023 8:22 AM EDT POPULATION HEALTH NAVIGATION OUTREACH Action/FYI [facility] [employer] MESSAGE SENT ANNUAL MEDICARE WELLNESS BP Controlled (<130/80) due on 11/27/2021 HbA1C due on 06/18/2022 Advance Directive Discussion Never done Annual PCP Team Chronic Disease Visit due on 12/16/2022 Influenza Vaccine(1) due on 04/03/2023 Patient Identified by Name and : NO Outreach Outcome/Action Unable to reach patient: Left message [employer] message sent Did you use a PCP [...] 11, 2023 8:22 AM documented in this encounterBrecksville [facility]07-20-2022 Instructions* Patient Instructions* Indigo Mayfield APRN.CNP - 02/19/2022 8:05 AM EDT Continue use of vaginal estrogen cream and clobetasol. Call office/go to ER if you are unable to urinate documented in this encounterBrecksville Va [facility]07-20-2022 History of Present illness Narrative* Indigo Mayfield APRN.CNP - 02/19/2022 8:00 AM EDT Female Pelvic Medicine & Reconstructive Surgery Post-Op [...] past weekend. States she has been applying estrogenand clobetasol cream every day with gentle labial [...] resolved? Not Applicable Abnormal vaginal discharge: no Hims Clerk offered:Patient declines OBJECTIVE: There were no vitals taken for this visit. General: Well appearing, alert, in no acute distress, well-hydrated, well nourished. Pelvic: Ext. Genitalia, Agglutination of labia majora ( about 1.5 cm) with 1 cm opening at the top and 1 cmopening at the bottom, able to release small [...] daughter, both agreeable to plan Indigo Mayfield APRN.CNP documented in this encounterBrecksville [facility]07-06-2022 Instructions* Patient Instructions* Indigo Mayfield APRN.CNP - 02/05/2022 8:25 AM EDT Follow up in 1-2 weeks Apply pea sized amount of clobetasol cream all over vaginal opening and labia Apply 1 g of vaginal estrogen cream with finger around vaginal opening with gentle spreading of labia documented in this encounterBrecksville [facility]07-06-2022 History of Present illness Narrative* Indigo Mayfield APRN.CNP - 02/05/2022 8:00 AM EDT Female Pelvic Medicine & Reconstructive Surgery Post-Op [...] have the amount of pain you expected, morepain, or less pain? Much less pain than I expected Was the preoperative teaching you had about pain expectations helpful? Yes Were the discharge instructions you received about pain medications helpful? Yes Hims Clerk offered:Patient declines OBJECTIVE: There were no vitals [...] for review Patient expressed understanding. Indigo Mayfield APRN.CNP documented in this encounterBrecksville Va [facility]06-23-2022 Miscellaneous Notes* Telephone Encounter - Viral Lion APRN.CNP - 01/23/2022 3:13 PM EDT Spoke with Luiza, patient's daughter. I relayed the message for Dr. Miller for patient to start Estrace and Clobetasol cream as directed. Advised Luiza to have Clari use applicator for Estrace creamto help the patency of the vagina. Luiza is not sure patient has an applicator but she will check and let me know. Viral Lion APRN.CNP documented in this encounterBrecksville Va [facility]06-20-2022 Miscellaneous Notes* Telephone Encounter - Agnes Whitaker - 01/20/2022 3:01 PM EDT Provider in pre-admission calling stating they still have not been able to get ahold of patient. Please advise if able to move forward with surgery tomorrow as patient has a pace maker and was supposed to be evaluated. Please advise and call pre-admission [phone] ask for Unique. Thank you * Telephone Encounter - Lizett Gandhi - 01/17/2022 9:02 AM EDT Preadmission testing employee called. She saw that patient has surgery with Dr. Miller on 01/21/2022. She's tried to reach the patient multiple times, but she hasn't answer, nor has she called back in regards to preadmission testing. Employee just wanted to let Dr. Miller know. Thank you. documented in this encounterBrecksville Va [facility]06-16-2022 Miscellaneous Notes* Telephone Encounter - Zabrina Layne LPN - 01/16/2022 9:42 AM EDT Called and all reviewed with pts daughter. She requested we faxed the admission forms to Hakeem at [facility]. This was done. At this time pt still plans on coming in for appts with pcp. Did request they complete the office if this info does change. * Telephone Encounter - Davon Calzada MD - 01/15/2022 7:42 PM EDT Form completed. * Telephone Encounter - Zabrina Layne LPN - 01/14/2022 2:23 PM EDT rec'd forms from pts daughter. They are [facility] assisted living initial and annual health assessment. Printed last office note for pcp to review. documented in this encounterB[facility] History of Present illness Narrative* Maricel Miller MD - 01/13/2022 2:30 PM EDT Female Pelvic Medicine & Reconstructive Surgery Follow-Up Clari Stephens is a 72 year old female, who presents for a follow-up of lichen planus, agglutination of labia minora, UTI and vaginal atrophy. Pt is a follow up for lichen planus. + JAVI Indigo Mayfield, DEEJAY 12/25/21: Impression: Clari Stephens is a 71 year old female with Lichen Planus, Agglutination of labia minora,UTI, vaginal atrophy. Plan: 1. Continue clobetasol cream [...] PFSH obtained by others. Maricel Miller MD Hims Clerk offered: Patient declines. OBJECTIVE: There were no vitals taken for this visit. General: Well appearing, alert, in no acute distress, well-hydrated, well nourished. Abdomen: Abdomen soft, non-tender Pelvic: Ext. Genitalia: Complete agglutination of labia majora. Gentle spreading of labia releases adhesions Impression: Clari Stephens is a 72 year old (FAVD x 1) female with Lichen Planus and CompleteLabial Agglutination. Pt has been using clobetasol cream [...] and possible cystoscopy on ThursdayJanuary 21 at [place] 2. No pre-operative appointments needed and will sign consent on the day of surgery 3. Pt will follow-up with Indigo Mayfield 1-2 weeks postoperatively and then restart clobetasol cream and vaginal estrogen cream 4. Will re-evaluate urinary incontinence and recurrent UTIs after she has undergone labial adhesiolysis I spent 30 minutes in the visit, with more than 50% of the total zlfu-ov-[id number] time of the visit in counseling / coordination of care. This time included preparing to see the patient, [id number] patient care, completing clinical documentation, obtaining and/or reviewing separately obtained history, performing a medically appropriate examination, counseling and educating the patient/family/caregiver and ordering medications, tests, or procedures. Maricel Miller MD documented in this encounterBrecksville [facility]06-07-[facility] Miscellaneous Notes* Telephone Encounter - Kerline Pedroza RN - 01/07/2022 2:40 PM EDT Patient notified. Kerline Pedroza RN * Telephone Encounter - Sveta Eid MD - 01/07/2022 2:30 PM EDT ordered * Telephone Encounter - Kerline Pedroza RN - 01/07/2022 2:15 PM EDT Patient of AG. Calling c/o UTI symptoms. Has been having dysuria x1 week and urinary frequency started this morning. Can only come in tomorrow between 10-11. Wants lab orders placed since no appointments available in that time frame. Please file. Patient requesting call back to let her know. Kerline Pedroza RN documented in this encounterBrecksville [facility]05-25-[facility]22 Instructions* Patient Instructions* Indigo Mayfield APRN.WOOD CRAFTSMAN - 12/25/2021 9:52 AM EDT Follow up with Dr. Miller in 1 month. As you spread your labia apart nightly, apply 1 application of clobetasol cream. Twice weekly, apply vaginal estrogen cream before bed. If you cannot empty your bladder or your symptoms do not improve, call the office. documented in this encounterBrecksville [facility]05-25-[facility] History of Present illness Narrative* Indigo Mayfield APRN.CNP - 12/25/2021 9:00 AM EDT Female Pelvic Medicine & Reconstructive Surgery Follow-Up Clari Stephens is a 71 year old female, who presents for a follow-up of lichen planus and labial agglutination. JAVI on 03/01/[address] Miller: IMPRESSION: Clari Stephens is a 71 year old (FAVD x 1) female with Lichen Planus and CompleteLabial Agglutination. Discussed options with patient including continuing [...] she has trouble urinating, then we will schedulelabial adhesiolysis. PLAN: 1. Continue nightly clobetasol 0.05% 2. Continue vaginal estrogen cream twice weekly 3. Follow-up in 1 month History since last visit: Patient states she was using the Clobetasol and vaginal estrogen inconsistently until her last CONSUMER EDUCATION SPECIALIST appointment with Cami Farris CNP on 12/05/2021 for an appointment made for UTI symptoms, specifically burning with urination. She is currently being treated with Keflex and has 2 days left of the treatment. She states she missed 3 days of taking it. States her burning has significantly decreasedsince starting her antibiotics. Also states this is her 2nd UTI in the last 6 months. Since she sawOB 3 weeks ago, she has been using Clobetasol most nights, states she puts it "inside" labia. She stopped using vaginal estrogen 1 [...] should follow up with UroGyn by the CONSUMER EDUCATION SPECIALIST. 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 She has a previous history of an abnormal mammogram with benign breast biopsy LMP: No LMP recorded. Patient is postmenopausal.; Menopause yes: Menstrual history: Menarche: teens; Deliveries: I have confirmed and edited as necessary, the PFSH obtained by others. Indigo Mayfield APRN.WOOD CRAFTSMAN Hims Clerk offered: Patient accepts, visit chaperoned by Magdalena [...] female with Lichen Planus, Agglutination of labia minora,UTI, vaginal atrophy. Plan: 1. Continue clobetasol cream [...] which included preparing to see the patient, [id number] patient care, completing clinical documentation, obtaining and/or reviewing separately obtained history, performing a medically appropriate examination, counseling and educating the pat ient/family/caregiver and ordering medications, tests, or procedures Indigo Mayfield APRN.WOOD CRAFTSMAN documented in this encounterBrecksville [facility]05-16-[facility] History of Present illness Narrative* Davon Calzada MD - 12/16/2021 2:37 PM EDT This note was created using [employer]. Subjective Clari Stephens is a 71 year [...] vaginally two times a week, THEN 1 gtwo times a week. Apply to affected area [...] MG TABLET - LIPID PANEL, NONFASTING Davon Calzada MD documented in this encounterBrecksville [facility]05-12-2022 Miscellaneous Notes* Telephone Encounter - Kerline Pedroza RN - 12/12/2021 9:34 AM EDT Patient notified. She only remembers PCN allergy and not to Keflex. Kerline Pedroza RN * Telephone Encounter - Margoth Perry RN - 12/10/2021 4:34 PM EDT Attempted to contact patient on mobile number but no answer and unable to leave a message as voicemail box is full. Also attempted to contact patient on home number but number rings fast busy. Will attempt to contact patient again later. Margoth Perry RN * Telephone Encounter - Cami Farris APRN.CNP - 12/10/2021 4:27 PM EDT Please notify pt - The urine culture showed bacteria often found in skin, which is not surprising with her anatomy. Keflex prescribed - ask about allergy to PCN - she was prescribed Keflex in 2019 with no allergy noted. Cami Farris APRN.DEEJAY documented in this encounterBrecksville [facility]05-05-2022 Miscellaneous Notes* Telephone Encounter - Margoth Perry RN - 12/05/2021 4:44 PM EDT Spoke to pharmacist at [facility] and medication instructions clarified. Margoth Perry RN * Telephone Encounter - Cami Farris APRN.CNP - 12/05/2021 4:34 PM EDT 1 gm twice weekly. Cami Farris APRN.CNP * Telephone Encounter - Yulia Whitt RN - 12/05/2021 3:27 PM EDT Pharmacy called. Needing clarification on Estradiol cream. This is how it reads: Use 1 g vaginally two times a week, THEN 1 g two times a week. Apply to affected area daily for 2 weeks then twice weekly. documented in this encounterBrecksville [facility]05-05-2022 Instructions* Patient Instructions* Cami Farris APRN.CNP - 12/05/2021 2:12 PM EDT Incontinence pads such as Poise. Hypoallergenic, no dyes, no fragrances. Use them only when needed. Wash and dry skin after incontinence of urine and then apply Aquaphor or A&D to protect the skin. documented in this encounterBrecksville [facility]05-05-2022 History of Present illness Narrative* Cami Farris APRN.DEEJAY - 12/05/2021 1:42 PM EDT Clari Stephens is a 71 year old [...] for the past 10 days. States has gottensloppy about using creams and needs to get back to using them regularly. Uses a calendar as a reminder but still forgets. Has taken antibiotics twice in the past few months for UTI. No discharge. States has a poor memory and hopes she is relating the correct information. Evaluated by Dr Miller, uro marine propulsion technician 01/2021 - Discussed options with patient including [...] she has trouble urinating, then we will schedulelabial adhesiolysis. PLAN: 1. Continue nightly clobetasol 0.05% 2. Continue vaginal estrogen cream twice weekly 3. Follow-up in 1 month OB History T1 L1 SAB0 IAB0 Ectopic0 Multiple0 Live Births0 Supply Teacher History LMP: Postmenopausal Age at Menarche: Age at First : Age at Menopause: Supply Teacher History Comments: Sexual Activity: Never; No partner data on record Contraception: No contraception data on record PAST MEDICAL HISTORY Diagnosis Date AORTIC VALVE DISORDER 12/03/2005 [place] 12-03-05: ECG showed SB, no LVH-rec Echo to consider bicupsid AV Echo 03-09: LA 42 mm, 61%, mild LVH, mod-severe calcific -orifice 1.1 cm2, 1+ TR, RVSP 31 [place] 02-07: rec repeat Echo in 6 mo [...] [facility]: rec stopping in 06-09 Responding wellto wrist splints as of 06-09 and wt [...] (pt had pneumonia clinically) CXR 06-10 showed "partial resolution" of the left lingular infiltrate: scheduled pt [...] apply - Aquaphor or A&D to protect theskin. - FLUCONAZOLE 150 MG TABLET 2. Vulvar pruritus - ICD9: 698.1, ICD10: L29.2 - se above 3. 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 Lichen planus - ICD9: 697.0, ICD10: [...] the office. Follow-up as needed. Cami Farris APRN.WOOD CRAFTSMAN I spent a total of 35 minutes on the date of the service which included preparing to see the patient, [id number] patient care, completing clinical documentation, obtaining and/or reviewing separately obtained history, performing a medically appropriate examination, counseling and educating the pat ient/family/caregiver, ordering medications, tests, or procedures and communicating results to the patient/family/caregiver. documented in this encounterBrecksville [facility]04-04-2022 Miscellaneous Notes* Telephone Encounter - Davon Calzada MD - 11/04/2021 5:00 PM EDT Patient's request for medication is as follows Signed Prescriptions Disp Refills lisinopril (ZESTRIL, PRINIVIL) 20 mg tablet 180 tablet 1 Sig: Take 1 tablet by mouth twice daily. Authorizing Provider: DAVON CALZADA MD * Telephone Encounter - Iliana Romeo LPN - 11/04/2021 3:54 PM EDT Pt's daughter Luiza calls to report that [...] patient. Iliana Romeo LPN documented in this encounterBrecksville [facility]04-02-2022 Miscellaneous Notes* Telephone Encounter - Jonathan Malcolm RN - 11/02/2021 4:11 PM EDT Reason For Call: Urinary problem. Outcome: SEE HCP WITHIN 4 HOURS (OR PCP TRIAGE): Spoke with the provider on-call Dr. Calzada who prescribed the following medication and this nurse E- Prescribed it to the requested [facility]: Allergies reviewed: Yes ALLERGIES Penicillins Seasonal Allergies Intolerance Comment:Sneezing and running nose (sinus issues) The following medications were verbally ordered by and read back to Dr. Calzada on 11/02/2021 at 4:42 PM by Jonathan Malcolm RN. Signed Prescriptions: Disp Refills nitrofurantoin monohydrate and 6 capsule 0 macrocrystal (MACROBID) 100 mg capsule Sig: Take 1 capsule by mouth twice daily with meals for 3 days. EMERITA: No Authorizing Provider: DAVON CALZADA Patient/Family notified: Yes Jonathan Malcolm RN Reason [...] her providers are aware Protocols used: URINARY [id number], URINATION PAIN - [id number] documented in this encounterBrecksville [facility]03-28-2022 History of Present illness Narrative* Davon Calzada MD - 10/28/2021 11:08 AM EDT This note was created using [email or web address]. Subjective Clari Stephens is a 71 year [...] with prednisone. - Continue current medications Davon Calzada MD documented in this encounterBrecksville [facility]03-25-2022 Instructions* Patient Instructions* Davon Calzada MD - 10/25/2021 5:05 PM EDT SEE MEDICATION LIST FOR CHANGES. documented in this encounterBrecksville Va [facility]03-23-2022 Miscellaneous Notes* Telephone Encounter - Miya Foley RN - 10/23/2021 2:49 PM EDT Spoke with patient. Given message from provider's office. Patient verbalizes understanding. Appointment scheduled. Miya Foley RN * Telephone Encounter - Davon Calzada MD - 10/23/2021 1:32 PM EDT She needs in office follow up. She was seen in urgent care and called for a refill of prednisone, which I did. I need to see these rashes. * Telephone Encounter - Sylwia Mejia LPN - 10/21/2021 2:39 PM EDT Patient calling back, she checked her calendar and finished the prednisone one week ago today. She uses [facility] pharmacy if needed. * Telephone Encounter - Sylwia Mejia LPN - 10/21/2021 2:33 PM EDT Patient calling said she finished prednisone rx 2 weeks ago, and she has hives all over arms and legs, back. Patient said she stopped using her dryer sheet and soap. She has been using otc anti itch cream 1% hydrocortisone cream sparingly. Patient asking what did you want her to do, since hives have never left? Please advise documented in this encounterBrecksville [facility]06-07-2019 Evaluation note* Diagnosis Onset Date Resolution Status Paroxysmal atrial fibrillation chronic Presence of permanent cardiac pacemaker January 07, 2019 chronic SA node dysfunction chronic Sick sinus syndrome chronic Essential (primary) hypertension chronic History of aortic valve repl acement with bioprosthetic valve January, chronic HLD (hyperlipidemia) chronic Paroxysmal atrial fibrillation chronic Presence of permanent cardiac pacemaker January 07, 2019 chronic Sick sinus syndrome [facility] Work Phone: 1(711) 222-141306-07-2019 Evaluation note* Diagnosis Onset Date Resolution Status Presence of permanent cardiac pacemaker January 07, 2019 chronic SA node dysfunction chronic Sick sinus syndrome chronic Bradycardia acute Paroxysmal atrial fibrillation chronic Presence of permanent cardiac pacemaker January 07, 2019 chronic Sick sinus syndrome chronic Essential (primary) hypertension chronic History of aortic valve repl acement with bioprosthetic valve January, chronic HLD (hyperlipidemia) chronic Paroxysmal atrial fibrillation chronic Presence of permanent cardiac pacemaker January 07, 2019 chronic Sick sinus syndrome [facility] Work Phone: 1(428) 474-616606-07-2019 Evaluation note* Diagnosis Onset Date Resolution Status Bradycardia acute Paroxysmal atrial fibrillation chronic Presence of permanent cardiac pacemaker January 07, 2019 chronic Sick sinus syndrome chronic Essential (primary) hypertension chronic History of aortic valve repl acement with bioprosthetic valve January, chronic HLD (hyperlipidemia) chronic Paroxysmal atrial fibrillation chronic Presence of permanent cardiac pacemaker January 07, 2019 chronic Sick sinus syndrome [facility] Work Phone: 1(824) 604-455806-01-2013 Evaluation note* Diagnosis Onset Date Resolution Status Essential (primary) hypertension chronic History of aortic valve repl acement with bioprosthetic valve January, chronic HLD (hyperlipidemia) chronic Paroxysmal atrial fibrillation chronic Presence of permanent cardiac pacemaker January 07, 2019 chronic Sick sinus syndrome [facility] Work Phone: 1(663) 264-354202-26-2013 History of Past illness Narrative* Problem Noted Date Resolved Date Labia minora agglutination 09/28/201206/07 Impaired fasting glucose 03/04/2010 014 Routine general medical exam ination at a health care facility 07/12/2007 01/01/2012 Overview: Prednisone for hives in 10-06 HCT 41% in 05-08 TSH 4.38 in [...] -orifice 1.1 cm2, 1+ TR, RVSP 31 [place] 02-07: rec repeat Echo in 6 mo (reordered in 01-09 as pt did not do test) Echo 02-08: 65%, LVH, trivial MR, RVSP 24, mod-sev of 1 cm2 documented as of this encounter (statuses as of 10/23/2021) [facility] of Past illness Narrative* Problem Noted [...] -orifice 1.1 cm2, 1+ TR, RVSP 31 [place] 02-07: rec repeat Echo in 6 mo (reordered in 01-09 as pt did not do test) Echo 02-08: 65%, LVH, trivial MR, RVSP 24, mod-sev of 1 cm2 documented as of this encounter (statuses as of 10/28/2021) [facility] of [facility] illness Narrative* Problem Noted [...] of this encounter (statuses as of 11/02/2021) [facility] Narrative* Problem Noted [...] of this encounter (statuses as of 11/04/2021) [facility] Narrative* Problem Noted [...] of this encounter (statuses as of 12/05/2021) [facility] Narrative* Problem Noted [...] of this encounter (statuses as of 12/05/2021) [facility] Narrative* Problem Noted [...] -orifice 1.1 cm2, 1+ TR, RVSP 31 [place] 02-07: rec repeat Echo in 6 mo (reordered in 01-09 as pt did not do test) Echo 02-08: 65%, LVH, trivial MR, RVSP 24, mod-sev of 1 cm2 documented as of this encounter (statuses as of 12/12/2021) [facility] Narrative* Problem Noted [...] of this encounter (statuses as of 12/16/2021) [facility] Narrative* Problem Noted [...] -orifice 1.1 cm2, 1+ TR, RVSP 31 [place] 02-07: rec repeat Echo in 6 mo (reordered in 01-09 as pt did not do test) Echo 02-08: 65%, LVH, trivial MR, RVSP 24, mod-sev of 1 cm2 documented as of this encounter (statuses as of 12/25/2021) [facility] Narrative* Problem Noted [...] -orifice 1.1 cm2, 1+ TR, RVSP 31 [place] 02-07: rec repeat Echo in 6 mo (reordered in 01-09 as pt did not do test) Echo 02-08: 65%, LVH, trivial MR, RVSP 24, mod-sev of 1 cm2 documented as of this encounter (statuses as of 01/07/2022) [facility] Narrative* Problem Noted [...] of this encounter (statuses as of 01/13/2022) [facility] Narrative* Problem Noted [...] -orifice 1.1 cm2, 1+ TR, RVSP 31 [place] 02-07: rec repeat Echo in 6 mo (reordered in 01-09 as pt did not do test) Echo 02-08: 65%, LVH, trivial MR, RVSP 24, mod-sev of 1 cm2 documented as of this encounter (statuses as of 01/16/2022) [facility] Narrative* Problem Noted [...] -orifice 1.1 cm2, 1+ TR, RVSP 31 [place] 02-07: rec repeat Echo in 6 mo (reordered in 01-09 as pt did not do test) Echo 02-08: 65%, LVH, trivial MR, RVSP 24, mod-sev of 1 cm2 documented as of this encounter (statuses as of 01/20/2022) [facility] Narrative* Problem Noted [...] -orifice 1.1 cm2, 1+ TR, RVSP 31 [place] 02-07: rec repeat Echo in 6 mo (reordered in 01-09 as pt did not do test) Echo 02-08: 65%, LVH, trivial MR, RVSP 24, mod-sev of 1 cm2 documented as of this encounter (statuses as of 01/23/2022) [facility] Narrative* Problem Noted [...] of this encounter (statuses as of 02/05/2022) [facility] Narrative* Problem Noted [...] of this encounter (statuses as of 02/19/2022) [facility] Narrative* Problem Noted [...] -orifice 1.1 cm2, 1+ TR, RVSP 31 [place] 02-07: rec repeat Echo in 6 mo (reordered in 01-09 as pt did not do test) Echo 02-08: 65%, LVH, trivial MR, RVSP 24, mod-sev of 1 cm2 documented as of this encounter (statuses as of 05/19/2022) [facility] Narrative* Problem Noted [...] -orifice 1.1 cm2, 1+ TR, RVSP 31 [place] 02-07: rec repeat Echo in 6 mo (reordered in 01-09 as pt did not do test) Echo 02-08: 65%, LVH, trivial MR, RVSP 24, mod-sev of 1 cm2 documented as of this encounter (statuses as of 11/14/2022) [facility] Narrative* Problem Noted [...] -orifice 1.1 cm2, 1+ TR, RVSP 31 [place] 02-07: rec repeat Echo in 6 mo (reordered in 01-09 as pt did not do test) Echo 02-08: 65%, LVH, trivial MR, RVSP 24, mod-sev of 1 cm2 documented as of this encounter (statuses as of 01/16/2023) [facility] Narrative* Problem Noted [...] of this encounter (statuses as of 05/12/2023) [facility] Narrative* Problem Noted [...] -orifice 1.1 cm2, 1+ TR, RVSP 31 [place] 02-07: rec repeat Echo in 6 mo (reordered in 01-09 as pt did not do test) Echo 02-08: 65%, LVH, trivial MR, RVSP 24, mod-sev of 1 cm2 documented as of this encounter (statuses as of 10/27/2023) [facility] Diagnosis Urticaria- Primary Urticaria, unspecified Gastroesophageal reflux disease without esophagitis Esophageal reflux Diabetes mellitus without complication (HCC) Type II or unspecified type diabetes mellitus without mention of complication, not stated as uncontrolled documented in this encounter [facility] note* Diagnosis Dermatitis of vulva- Primary Other inflammatory disease of cervix, vagina and vulva Vulvar pruritus Pruritus of genital organs 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, vagina, 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 Lichen planus Urinary dribbling Post-void dribbling documented in this encounter [facility] note* Diagnosis Essential hypertension- Primary Unspecified essential hypertension Diabetes mellitus without complication (HCC) Type II or unspecified type diabetes mellitus without mention of complication, not stated as uncontrolled Other hyperlipidemia documented in this encounter [facility] note* Diagnosis Lichen planus- Primary 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, vagina, 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 History of UTI Personal history of urinary (tract) infection Vaginal atrophy Postmenopausal atrophic vaginitis documented in this encounter [facility] note* Diagnosis Urinary frequency- Primary Dysuria documented in this encounter [facility] note* Diagnosis Lichen planus- Primary Vaginal atrophy 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, vagina, 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 documented in this encounter [facility] note* Diagnosis Post-operative state- Primary Other postprocedural status documented in this encounter [facility] note* Diagnosis Post-operative state- Primary Other postprocedural status Lichen planus documented in this encounter [facility] note* Diagnosis Encounter for screening mammogram for breast cancer documented in this encounter [facility] noteNo assessment information availableWDoctors Hospital Work Phone: Evaluation note* Diagnosis Diabetes mellitus without complication (HCC) Type II or unspecified type diabetes mellitus without mention of complication, not stated as uncontrolled documented in this encounter [facility] note* Diagnosis Routine medical exam- Primary Routine general medical examination at a health care facility Need for prophylactic vaccination and inoculation against influenza HYPERLIPIDEMIA NEC/NOS Other and unspecified hyperlipidemia HYPERTENSION NOS Unspecified essential hypertension Impaired fasting glucose Special screening for malignant neoplasms, colon Diabetic polyneuropathy associated with type 2 diabetes mellitus (HCC)- Primary Onychomycosis Dermatophytosis of nail Onychocryptosis Ingrowing nail Pain in toe of left foot Pain in limb Pain in toe of right foot Pain in limb [facility] Diagnosis Routine medical exam- Primary Routine general medical examination at a health care facility Need for prophylactic vaccination and inoculation against influenza HYPERLIPIDEMIA NEC/NOS Other and unspecified hyperlipidemia HYPERTENSION NOS Unspecified essential hypertension Impaired fasting glucose Special screening for malignant neoplasms, colon Onychomycosis- Primary Dermatophytosis of nail Onychocryptosis Ingrowing nail Pain in toe of left foot Pain in limb Pain in toe of right foot Pain in limb Diabetic polyneuropathy associated with type 2 diabetes mellitus (HCC) [facility] Additional Instructions Transient runs a flutter to A-fib in the emergency department. Labs are stable. Discussed with cardiology Dr. Blanc, would like you back on your sotalol twice a day. Continue metoprolol same dose at this time. Follow-up with Dr. Dacosta.[facility] Work Phone: Reason for referral (narrative)* Diagnostic Procedure Only (Routine) - Pending Review Specialty Diagnoses / Procedures Referred By Bhavana hardin Referred To Contact [facility] Diagnoses Encounter for screening mammogram for breast cancer Procedures YANELIS SCREENING SCREENING MAMMOGRAPHY BI 2-VIEW BREAST INC CAD Davon Calzada MD [address] [place] [address] [facility] [address] [place] [address] Referral ID Status Reason Start Date Expiration Date Visits Requested Visits Authorized [id number] Pending Review Auto-Generat ed Referral 2 06/13/2023 1 1 [facility] [place] for referral (narrative)No reason for referral information availableWDoctors Hospital Work Phone: Summary Purpose Family History No Family History Records Found Relationship Condition Age at Onset Recorded Date/T johan mother Diabetes mellitus Unknown aunt Malignant neoplasm of breast Unknown father Malignant neoplasm Unknown Advance Directives No Advanced Directives Records FoundDocuments on File Type Date Recorded 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 Expl anation Advance Directive(s) 01/21/2022 7:12 AM Advance Directive Response Recorded Date/ Time Advance Directives Yes October 31 10:46am Living Will No July 02 1:27pm Power of Oracle Consultant No July 02, 2021 1:27pm Advance Directive Response Recorded Date/ Time Advance Directives Yes October 31 9:46am Living Will No July 02 12:27pm Power of Oracle Consultant No July 02, 2021 12:27pm Advance Directive Response Recorded Date/ Time Advance Directives Yes October 31 10:46am Advance Directive Response Recorded Date/ Time Living Will Yes November 03, 2024 10:51am Do you have a Healthcare Power of Oracle Consultant? No November 03, 2024 10:51am Advance Directives Yes October 31 10:46am Chief Complaint and Reason for Visit Chief Complaint 3 mos remote PPM f/u INTERMEDIATE LABWORK 6 M FU Reason for Visit Paroxysmal atrial fi brillation Presence of permanent cardiac pacemaker SA node dysfunction Sick sinus syndrome Essential (primary) hypertension History of aortic valve replacement with bioprosthetic valve HLD (hyperlipidemia) Paroxysmal atrial fibrillation Presence of permanent cardiac pacemaker Sick sinus syndrome Chief Complaint INTERMEDIATE LAB WOR K Chief Complaint INTERMEDIATE LAB WOR K remote PPM f/u REMOTE CHECK INTERMEDIATE LAB WORK 6 M FU INTERMEDIATE LAB WORK Reason for Visit Presence of permanen t cardiac pacemaker SA node dysfunction Sick sinus syndrome Bradycardia Paroxysmal atrial fibrillation Presence of permanent cardiac pacemaker Sick sinus syndrome Essential (primary) hypertension History of aortic valve replacement with bioprosthetic valve HLD (hyperlipidemia) Paroxysmal atrial fibrillation Presence of permanent cardiac pacemaker Sick sinus syndrome Chief Complaint REMOTE CHECK INTERMEDIATE LAB WORK 6 M FU INTERMEDIATE LAB WORK INTERMEDIATE LABWORK AFIB Reason for Visit Bradycardia Paroxysmal atrial fibrillation Presence of permanent cardiac pacemaker Sick sinus syndrome Essential (primary) hypertension History of aortic valve replacement with bioprosthetic valve HLD (hyperlipidemia) Paroxysmal atrial fibrillation Presence of permanent cardiac pacemaker Sick sinus syndrome Chief Complaint REMOTE CHECK INTERMEDIATE LAB WORK 6 M FU INTERMEDIATE LAB WORK INTERMEDIATE LABWORK AFIB INTERMEDIATE LAB WORK Reason for Visit Bradycardia Paroxysmal atrial fibrillation Presence of permanent cardiac pacemaker Sick sinus syndrome Essential (primary) hypertension History of aortic valve replacement with bioprosthetic valve HLD (hyperlipidemia) Paroxysmal atrial fibrillation Presence of permanent cardiac pacemaker Sick sinus syndrome Chief Complaint AFIB INTERMEDIATE LAB WORK INTERMEDIATE LABWORK INTERMEDIATE LABWORK Chief Complaint INTERMEDIATE LABWORK INTERMEDIATE LABWORK Chief Complaint INTERMEDIATE LABWORK 1 Y FU INTERMEDIATE LAB WORK Reason for Visit Essential (primary) hypertension History of aortic valve replacement with bioprosthetic valve HLD (hyperlipidemia) Paroxysmal atrial fibrillation Presence of permanent cardiac pacemaker Sick sinus syndrome Chief Complaint INTERMEDIATE LABWORK 1 Y FU INTERMEDIATE LAB WORK EVAL VALVE REPLACEMENT Amb Documentation Reason for Visit Essential (primary) hypertension History of aortic valve replacement with bioprosthetic valve HLD (hyperlipidemia) Paroxysmal atrial fibrillation Presence of permanent cardiac pacemaker Sick sinus syndrome Chief Complaint 1 Y FU INTERMEDIATE LAB WORK Pacer Check Remote EVAL VALVE REPLACEMENT Amb Documentation INTERMEDIATE LABWORK Reason for Visit Essential (primary) hypertension History of aortic valve replacement with bioprosthetic valve HLD (hyperlipidemia) Paroxysmal atrial fibrillation Presence of permanent cardiac pacemaker Sick sinus syndrome Chief Complaint INTERMEDIATE LAB WOR K Pacer Check Remote EVAL VALVE REPLACEMENT Amb Documentation INTERMEDIATE LABWORK LABWORK Chief Complaint Admit Date Presence of xenogenic heart valve Decemb er 2023 1:39pm INTERMEDIATE LAB WORK August 25, 2024 5:00am Pacer Check Remote September 19, 2024 3:11am LABILE HR, TACHYCARDIA October 21, 2024 8:12am Chief Complaint Admit Date Presence of xenogenic heart valve Decemb er 2023 1:39pm INTERMEDIATE LAB WORK August 25, 2024 5:00am Pacer Check Remote September 19, 2024 3:11am LABILE HR, TACHYCARDIA October 21, 2024 8:12am LABILE HR, TACHYCARDIA October 21, 2024 8:40am AFIB November 03, 2024 10:4 1am Chief Complaint Admit Date INTERMEDIATE LAB WORK August 25, 2024 5:00am Pacer Check Remote September 19, 2024 3:11am LABILE HR, TACHYCARDIA October 21, 2024 8:12am LABILE HR, TACHYCARDIA October 21, 2024 8:40am AFIB November 03, 2024 10:4 1am S/P [facility] 11/03November 14, 2024 2:0 4pm LABWORK November 25, 2024 5:0 0am Reason for Visit Admit Date Carotid bruit November 14, 2024 2:0 4pm Essential (primary) hypertension November 012024 2:04pm History of aortic valve replacement with bioprosthetic valve November 14, 2024 2:04pm HLD (hyperlipidemia) November 14, 2024 2: 04pm Paroxysmal atrial fibrillation November 2:04pm Presence of permanent cardiac pacemaker November 14, 2024 2:04pm Chief Complaint Admit Date LABILE HR, TACHYCARDIA October 21, 2024 8:12am LABILE HR, TACHYCARDIA October 21, 2024 8:40am AFIB November 03, 2024 10:4 1am S/P [facility] 11/03November 14, 2024 2:0 4pm LABWORK November 25, 2024 5:0 0am Pacer Check Remote December 19, 2024 3:11a m Additional Source Comments INFORMATION SOURCE (unrecogn ized section and content) DATE CREATED AUTHOR 01/22/2018 [facility] ([place]) DATE CREATED AUTHOR AUTHOR'S ORGANIZ ATION 01/24/2022 [facility] DATE CREATED AUTHOR AUTHOR'S ORGANIZ ATION 01/29/2022 [facility] DATE CREATED AUTHOR AUTHOR'S ORGANIZ ATION 12/07/2024 [facility] DATE CREATED AUTHOR AUTHOR'S ORGANIZ ATION 01/20/2025 [facility] Source Comments (unrecognize d section and content) In the event this informatio n is protected by the Federal Confidentiality of Alcohol and Drug Abuse Patient Records regulations: The Federal rules restrict any use of the information to criminally investigate or prosecute any alcohol or drug abuse patient.[facility] the event this information is protected by the Federal Confidentiality of Alcohol and Drug Abuse Patient Records regulations: The Federal rules restrict any use of the information to criminally investigate or prosecute any alcohol or drug abuse patient.[facility] the event this information is protected by the Federal Confidentiality of Alcohol and Drug Abuse Patient Records regulations: The Federal rules restrict any use of the information to criminally investigate or prosecute any alcohol or drug abuse patient.[facility] the event this information is protected by the Federal Confidentiality of Alcohol and Drug Abuse Patient Records regulations: The Federal rules restrict any use of the information to criminally investigate or prosecute any alcohol or drug abuse patient.[facility] the event this information is protected by the Federal Confidentiality of Alcohol and Drug Abuse Patient Records regulations: The Federal rules restrict any use of the information to criminally investigate or prosecute any alcohol or drug abuse patient.[facility] the event this information is protected by the Federal Confidentiality of Alcohol and Drug Abuse Patient Records regulations: The Federal rules restrict any use of the information to criminally investigate or prosecute any alcohol or drug abuse patient.[facility] the event this information is protected by the Federal Confidentiality of Alcohol and Drug Abuse Patient Records regulations: The Federal rules restrict any use of the information to criminally investigate or prosecute any alcohol or drug abuse patient.[facility] the event this information is protected by the Federal Confidentiality of Alcohol and Drug Abuse Patient Records regulations: The Federal rules restrict any use of the information to criminally investigate or prosecute any alcohol or drug abuse patient.[facility] the event this information is protected by the Federal Confidentiality of Alcohol and Drug Abuse Patient Records regulations: The Federal rules restrict any use of the information to criminally investigate or prosecute any alcohol or drug abuse patient.[facility] the event this information is protected by the Federal Confidentiality of Alcohol and Drug Abuse Patient Records regulations: The Federal rules restrict any use of the information to criminally investigate or prosecute any alcohol or drug abuse patient.[facility] the event this information is protected by the Federal Confidentiality of Alcohol and Drug Abuse Patient Records regulations: The Federal rules restrict any use of the information to criminally investigate or prosecute any alcohol or drug abuse patient.[facility] the event this information is protected by the Federal Confidentiality of Alcohol and Drug Abuse Patient Records regulations: The Federal rules restrict any use of the information to criminally investigate or prosecute any alcohol or drug abuse patient.[facility] the event this information is protected by the Federal Confidentiality of Alcohol and Drug Abuse Patient Records regulations: The Federal rules restrict any use of the information to criminally investigate or prosecute any alcohol or drug abuse patient.[facility] the event this information is protected by the Federal Confidentiality of Alcohol and Drug Abuse Patient Records regulations: The Federal rules restrict any use of the information to criminally investigate or prosecute any alcohol or drug abuse patient.[facility] the event this information is protected by the Federal Confidentiality of Alcohol and Drug Abuse Patient Records regulations: The Federal rules restrict any use of the information to criminally investigate or prosecute any alcohol or drug abuse patient.[facility] the event this information is protected by the Federal Confidentiality of Alcohol and Drug Abuse Patient Records regulations: The Federal rules restrict any use of the information to criminally investigate or prosecute any alcohol or drug abuse patient.[facility] the event this information is protected by the Federal Confidentiality of Alcohol and Drug Abuse Patient Records regulations: The Federal rules restrict any use of the information to criminally investigate or prosecute any alcohol or drug abuse patient.[facility] the event this information is protected by the Federal Confidentiality of Alcohol and Drug Abuse Patient Records regulations: The Federal rules restrict any use of the information to criminally investigate or prosecute any alcohol or drug abuse patient.[facility] Hospital[facility] the event this information is protected by the Federal Confidentiality of Alcohol and Drug Abuse Patient Records regulations: The Federal rules restrict any use of the information to criminally investigate or prosecute any alcohol or drug abuse patient.[facility] the event this information is protected by the Federal Confidentiality of Alcohol and Drug Abuse Patient Records regulations: The Federal rules restrict any use of the information to criminally investigate or prosecute any alcohol or drug abuse patient.[facility] the event this information is protected by the Federal Confidentiality of Alcohol and Drug Abuse Patient Records regulations: The Federal rules restrict any use of the information to criminally investigate or prosecute any alcohol or drug abuse patient.[facility] the event this information is protected by the Federal Confidentiality of Alcohol and Drug Abuse Patient Records regulations: The Federal rules restrict any use of the information to criminally investigate or prosecute any alcohol or drug abuse patient.[facility] the event this information is protected by the Federal Confidentiality of Alcohol and Drug Abuse Patient Records regulations: The Federal rules restrict any use of the information to criminally investigate or prosecute any alcohol or drug abuse patient.[facility] Reason for Visit (unrecogniz ed section and content) Reason Comments Patient Update Patient Question Reason Comments Rash x1 month Reason Comments Urinary Problem Reason Comments Medication Problem Reason Comments Vaginal Problem itching/burning Reason Comments Medication Question Reason Comments Results New Medication Reason Comments F/U 6 months Reason Comments UTI Reason Comments Forms Reason Comments Question Reason Comments Patient Update Reason Onset Date Comments Population Health Navigation Outreach 05/11/2023 ACO BP AND DM Reason Comments Established Patient nail care New Ingrown Toenail Reason Comments Follow Up Diabetic Foot Care Care Teams (unrecognized sec tion and content) Customs Manager Relationship Specialty Start Date End Date Davon Calzada MD [address] [place] [address] PCP - General 09/03/09 Customs Manager Relationship Specialty Start Date End Date Davon Calzada MD [address] [place], [place] [id number] PCP - General 09/03/09 Customs Manager Relationship Specialty Start Date End Date Davon Calzada MD [address] [place] [address] PCP - General 09/03/09 Customs Manager Relationship Specialty Start Date End Date Davon Calzada MD [address] [place] [address] PCP - General 09/03/09 Customs Manager Relationship Specialty Start Date End Date Davon Calzada MD [address] [place] [address] PCP - General 09/03/09 Customs Manager Relationship Specialty Start Date End Date Davon Calzada MD [address] [place] [address] PCP - General 09/03/09 Customs Manager Relationship Specialty Start Date End Date Davon Calzada MD [address] [place] [address] PCP - General 09/03/09 Customs Manager Relationship Specialty Start Date End Date Davon Calzada MD [address] [place] [address] PCP - General 09/03/09 Customs Manager Relationship Specialty Start Date End Date Davon Calzada MD [address] [place] [address] PCP - General 09/03/09 Customs Manager Relationship Specialty Start Date End Date Davon Calzada MD [address] [place] [address] PCP - General 09/03/09 Customs Manager Relationship Specialty Start Date End Date Davon Calzada MD [address] [place] [address] PCP - General 09/03/09 Team Status: Active Member Role Status Dates Dr. Davon Calzada MD Family Provider Active Team Status: Inactive Member Role Status Dates Blanca Kaufman CIPHER EXPERT, CIPHER EXPERT-C Attending Provider Active Team Status: Inactive Member Role Status Dates Suzanna Bateman Attending Provider Active Team Status: Inactive Member Role Status Dates Suzanna Bateman Active Dr. Ori Torres MD Attending Provider Active Team Status: Inactive Member Role Status Dates Dr. Angela NORRIS MD Attending Provider, Referring Provider Active Team Status: Inactive Member Role Status Dates Dr. Angela NORRIS MD Attending Provider Active Customs Manager Relationship Specialty Start Date End Date Davon Calzada MD [address] [place] [address] PCP - General 09/03/09 Team Status: Active Member Role Status Dates Dr. Davon Calzada MD Family Provider Active Dr. Angela Manjarrez MD Primary Care Provider Active Team Status: Active Member Role Status Dates Blanca Kaufman CIPHER EXPERT, CIPHER EXPERT-C Attending Provider, Referring P rovider Active Dr. Angela Manjarrez MD Primary Care Provider Active Team Status: Active Member Role Status Dates Dr. Angela Manjarrez MD Primary Care Provider Active Dr. Angela NORRIS MD Attending Provider Active Team Status: Inactive Member Role Status Dates Blanca Kaufman CIPHER EXPERT, CIPHER EXPERT-C Attending Provider, Referring P rovider Active Dr. Angela Manjarrez MD Primary Care Provider Active Team Status: Inactive Member Role Status Dates Dr. Angela Manjarrez MD Primary Care Provider Active Dr. Angela NORRIS MD Attending Provider Active Customs Manager Relationship Specialty Start Date End Date Davon Calzada MD [address] [place] [address] PCP - General 09/03/09 Team Status: Inactive Member Role Status Dates Blanca Kaufman CIPHER EXPERT, CIPHER EXPERT-C Attending Provider Active Dr. Angela Manjarrez MD Primary Care Provider, Referring Provider Active Team Status: Inactive Member Role Status Dates Dr. Angela Manjarrez MD Primary Care Provider Active Dr. Angela NORRIS MD Attending Provider, Referring Provider Active Team Status: Active Member Role Status Dates Dr. Angela Manjarrez MD Primary Care Provider Active Dr. Mark Dacosta MD Attending Provider Active Team Status: Active Member Role Status Dates Dr. Angela Manjarrez MD Primary Care Provider Active Blanca Kaufman CIPHER EXPERT, CIPHER EXPERT-C Attending Provider Active Team Status: Inactive Member Role Status Dates Dr. Angela Manjarrez MD Primary Care Provider Active Blanca Kaufman CIPHER EXPERT, CIPHER EXPERT-C Attending Provider, Referring Brandi freire Active Team Status: Inactive Member Role Status Dates Dr. Angela Manjarrez MD Primary Care Provider Active Dr. Rubio Blanc MD Attending Provider Active Team Status: Active Member Role Status Dates Dr. Angela Manjarrez MD Primary Care Provider Active Team Status: Inactive Member Role Status Dates Dr. Angela Manjarrez MD Primary Care Provider Active Start: July 11, 2024 End: July 11, 2024 Dr. Mark Dacosta MD Attending Provider Active Start: July 11, 2024 End: July 11, 2024 Dr. Mark Dacosta MD Referring Provider Active Start: July 11, 2024 End: July 11, 2024 Team Status: Active Member Role Status Dates Dr. Angela Manjarrez MD Primary Care Provider Active Start: July 11, 2024 Dr. Mark Dacosta MD Attending Provider Active Start: July 11, 2024 Team Status: Inactive Member Role Status Dates Dr. Angela Manjarrez MD Primary Care Provider Active Start: August 25, 2024 End: August 25, 2024 Dr. Angela NORRIS MD Attending Provider Active Start: August 25, 2024 End: August 25, 2024 Team Status: Inactive Member Role Status Dates Dr. Angela Manjarrez MD Primary Care Provider Active Start: September 19, 2024 End: September 19, 2024 Dr. Rubio Blanc MD Attending Provider Active S tart: September 19, 2024 End: September 19, 2024 Team Status: Inactive Member Role Status Dates Dr. Angela Manjarrez MD Primary Care Provider Active Start: October 21, 2024 End: October 21, 2024 Marbella Gomez CIPHER EXPERT, CIPHER EXPERT-C Attending Provider Active S tart: October 21, 2024 End: October 21, 2024 Marbella Gomez CIPHER EXPERT, CIPHER EXPERT-C Referring Provider Active S tart: October 21, 2024 End: October 21, 2024 Team Status: Active Member Role Status Dates Dr. Angela Manjarrez MD Primary Care Provider Active Start: October 21, 2024 Dr. Rubio Blanc MD Attending Provider Active S tart: October 21, 2024 Marbella Gomez CIPHER EXPERT, CIPHER EXPERT-C Referring Provider Active S tart: October 21, 2024 Team Status: Inactive Member Role Status Dates Dr. Angela Manjarrez MD Primary Care Provider Active Start: November 03, 2024 End: November 03, 2024 Dr. Jani Hale DO Emergency Provider Active Start : November 03, 2024 End: November 03, 2024 Team Status: Inactive Member Role Status Dates Dr. Angela Manjarrez MD Primary Care Provider Active Start: November 03, 2024 End: November 03, 2024 Dr. Jani Hale DO Attending Provider Active Start : November 03, 2024 End: November 03, 2024 Dr. Jani Hale DO Emergency Provider Active Start : November 03, 2024 End: November 03, 2024 Team Status: Inactive Member Role Status Dates Dr. Angela Manjarrez MD Primary Care Provider Active Start: November 14, 2024 End: November 14, 2024 Dr. Angela Manjarrez MD Referring Provider Active Start: November 14, 2024 End: November 14, 2024 Blanca Kaufman CIPHER EXPERT, CIPHER EXPERT-C Attending Provider Active Start: November 14, 2024 End: November 14, 2024 Team Status: Inactive Member Role Status Dates Dr. Angela Manjarrez MD Primary Care Provider Active Start: November 25, 2024 End: November 25, 2024 Dr. Angela NORRIS MD Attending Provider Active Start: November 25, 2024 End: November 25, 2024 Team Status: Inactive Member Role Status Dates Dr. Angela Manjarrez MD Primary Care Provider Active Start: December 19, 2024 End: December 19, 2024 Dr. Rubio Blanc MD Attending Provider Active S tart: December 19, 2024 End: December 19, 2024 Goals (unrecognized section and content) Goals may be documented in a n alternate sectionGoals may be documented in an alternate sectionGoals may be documented in an alternate sectionGoals may be documented in an alternate sectionGoals may be documented in an alternate sectionGoals may be documented in an alternate sectionGoals may be documented in an alternate sectionGoals may be documented in an alternate sectionGoals may be documented in an alternate sectionGoals may be documented in an alternate sectionGoals may be documented in an alternate sectionGoals may be documented in an alternate sectionGoals may be documented in an alternate sectionGoals may be documented in an alternate sectionGoals may be documented in an alternate sectionGoals may be documented in an alternate sectionGoals may be documented in an alternate section FOR RECORDS PERTAINING TO PATIENTS WHO ARE [...] BE BASED ON THE PRIMARY CLINICAL RECORDS. [facility] [employer] [facility]. provides no warranty or guarantee of the accuracy or completeness of information in this document.
[2025-02-24 08:16] LABS: Hematocrit 37.8 % (37-47); Hemoglobin 12.0 g/dL (12.0-15.0); Immature Granulocytes Count 0.030 X10^3/uL (0.0-0.0); Mean Corp Hgb Conc 31.7 g/dL (32-36); Mean Corpuscular Volume 91.7 fL (81-99); Mean Platelet Vol. 11.3 fl (6.2-12.0); NRBC Flagged by Analyzer 0 % (0-5); Platelet Count 176 K/mm3 (150-450); RBC Distribution Width CV 14.6 % (11.6-14.6); RBC Distribution Width SD 49.1 fl (35.1-43.9); Red Blood Count 4.12 M/mm3 (4.2-5.4); White Blood Count 7.7 K/mm3 (4.4-11.0)
[2025-02-24 09:10] LABS: AST(SGOT) 26 U/L (<=31); Alanine Aminotransfer ALT/SGPT 20 U/L (<=34); Albumin, Serum 3.9 g/dL (3.4-4.8); Alkaline Phosphatase 119 U/L (35-104); Anion Gap 12 (5-15); BUN 17 mg/dL (4-19); BUN/Creat Ratio 18.1 RATIO (10-20); Calcium,Total 10.4 mg/dL (7.6-11.0); Carbon Dioxide 20.0 mmol/L (21.0-32.0); Chloride 109 mmol/L (98-108); Cholesterol 159 mg/dL (<=200); Globulin 3.2 g/dL (2.2-4.2); Glucose 142 mg/dL (70-99); Low Density Lipoprotein Calc. 77 mg/dL; Potassium 4.6 mmol/L (3.3-5.1); Triglycerides 164 mg/dL; Very Low Density Lipoprotein 33 mg/dL (5-40); cholesterol:hdl ratio screen 3.24
== END ==
LOC: OLS.SWAL 05:00
PROVIDERS: PCP Internal Medicine; Visit Provider Internal Medicine
DX: E11.9 Type 2 diabetes mellitus without complications (principal); E78.49 Other hyperlipidemia; I10 Essential (primary) hypertension
CPT/HCPCS: 36415; 80053; 80061; 83036; 84443; 85025

== ENCOUNTER → 2025-04-06 | Outpatient (CLI) | payer MEDICARE, MEDICAID, SELFPAY ==
--- NOTE | 2025-04-06 09:42 | ECHOL_ITS ---
Reason For Study Reason For Study: Assess AV and LV function Procedure This was a limited 2D transthoracic echocardiogram. Exam performed in department. Left Ventricle Normal LV size. Mild concentric left ventricular hypertrophy. Left ventricular systolic function is normal. The estimated ejection fraction is 60-65 %. Stage 1 diastolic dysfunction. No regional wall motion abnormalities noted. Right Ventricle ICD or pacer leads identified within the right ventricle. Normal RV size. Normal systolic function. Atria The left and right atria are normal. ICD or pacer leads identified within the right atrium. Mitral Valve Severe mitral annular calcification. Mild (1+) mitral valve insufficiency. Tricuspid Valve Normal tricuspid valve. Mild (1+) tricuspid valve insufficiency. Pulmonary artery systolic pressure is 24 mmHg. Aortic Valve Peak aortic valve gradient 59 mmHg. Mean aortic valve gradient 33 mmHg. Bioprosthetic aortic valve. Pulmonic Valve Normal pulmonic valve. Great Vessels Normal sized aortic root. Pericardium/Pleural No pericardial effusion. MMode/2D Measurements & Calculations LVIDd: 4.1 cm IVSd: 1.3 cm LVOT diam: 2.0 cm LVIDs: 2.1 cm LVPWd: 1.2 cm LVOT area: 3.3 cm2 RVDd: 3.1 cm FS: 49.4 % Ao root diam: 3.6 cm LAV(MOD-bp): 40.2 ml LVAd ap4: 23.8 cm2 LAV(MOD-bp) Indexed: 19.7 ml/m2 LVLd ap4: 6.9 cm LAV(MOD-sp2): 37.2 ml EDV(MOD-sp4): 71.2 ml LAV(MOD-sp4): 42.7 ml EDV(sp4-el): 69.2 ml LVAs ap4: 13.0 cm2 LVLs ap4: 5.6 cm ESV(MOD-sp4): 27.6 ml ESV(sp4-el): 25.5 ml EF(MOD-sp4): 61.3 % EF(sp4-el): 63.1 % LVAd ap2: 23.3 cm2 SV(MOD-sp4): 43.6 ml SV(MOD-sp2): 46.9 ml LVLd ap2: 6.3 cm SI(MOD-sp4): 21.4 ml/m2 SI(MOD-sp2): 23.0 ml/m2 EDV(MOD-sp2): 71.5 ml EDV(sp2-el): 73.6 ml LVAs ap2: 12.5 cm2 LVLs ap2: 5.4 cm ESV(MOD-sp2): 24.6 ml ESV(sp2-el): 24.5 ml EF(MOD-sp2): 65.6 % SV(sp4-el): 43.7 ml LA dimension(2D): 4.0 cm LA A4 area: 15.2 cm2 RA A4 area: 14.6 cm2 Doppler Measurements & Calculations Ao V2 max: 382.7 cm/sec LV V1 max: 136.4 cm/sec SV(LVOT): 99.0 ml Ao max P.7 mmHg LV V1 max P.5 mmHg Ao V2 mean: 268.8 cm/sec LV V1 mean P.4 mmHg Ao mean P.1 mmHg LV V1 mean: 98.6 cm/sec Ao V2 VTI: 80.5 cm LV V1 VTI: 30.0 cm AV (velocity ratio): 0.37 SPENCER(I,D): 1.2 cm2 SPENCER(V,D): 1.2 cm2 TR max ana lilia: 228.9 cm/sec TR max P.0 mmHg ECHO/Echo, Limited Study Interpretation Summary The estimated ejection fraction is 60-65 %. Stage 1 diastolic dysfunction. Mild concentric left ventricular hypertrophy. Severe mitral annular calcification. Mild (1+) mitral valve insufficiency. Mild (1+) tricuspid valve insufficiency. Mean aortic valve gradient 33 mmHg. Bioprosthetic valve. LV ejection fraction and aortic valve mean gradient is unchanged from previous study 07/11/24. Ordering Physician: Jerod Gomez Referring Physician: Angela Manjarrez Performed By: Fabiola Owens RDCS
== END | disposition home or self-care (01) ==
PROVIDERS: PCP Internal Medicine; Referring Provider Nurse Practitioner Family; Visit Provider Nurse Practitioner Family
DX: I48.0 Paroxysmal atrial fibrillation (principal); Z95.3 Presence of xenogenic heart valve; Z95.0 Presence of cardiac pacemaker
CPT/HCPCS: 93308

== ENCOUNTER → 2025-05-26 05:00 | Outpatient (REF) | payer MEDICAID, SELFPAY ==
--- OUTSIDE RECORDS SUMMARY | 2025-05-26 04:40 | XMS RPT_ITS | CCD ---
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 Davon Calzada Primary Care Provider Dr. Ori Torres Attending Provider Dr. Ori Torres Referring Provider Dr. Davon Calzada Referring Provider Mandeep PRODUCTION SUPPORT ENGINEER, PRODUCTION SUPPORT ENGINEER-C Blanca Attending Provider Davon Calzada MD Primary Care Provider Dr. Ori Torres Attending Provider Suzanna Bateman Attending Provider Unavailable Mandeep HOFFMAN, PRODUCTION SUPPORT ENGINEER-C Blanca Attending Provider Davon Calzada MD Primary Care Provider Mandeep PRODUCTION SUPPORT ENGINEER, PRODUCTION SUPPORT ENGINEER-C Blanca Attending Provider Dr. Angela Manjarrez Primary Care Provider UnavailDr. Angela Lopez Referring Provider Unavailable Mandeep HOFFMAN, PRODUCTION SUPPORT ENGINEER-C Blanca Attending Provider Dr. Angela Manjarrez Primary Care Provider UnavailDr. Angela Lopez Referring Provider Unavailable Dr. Mark Dacosta Attending Provider Dr. Rubio Blanc Attending Provider Dr. Angela Manjarrez Primary Care Provider Unavailshira Kaufman PRODUCTION SUPPORT ENGINEER, PRODUCTION SUPPORT ENGINEER-C Blanca Attending Provider Unavailable Primary Care Provider Unavailabl e Unavailable Primary Care Provider Unavailabl e Josseline RASCON, Dr. Miller Primary Care Provider Monica Dacosta MD, Dr. Flores Attending Provider Dr. Mark Dacosta MD Referring Provider Dr. Angela Manjarrez MD Attending Provider Unavaila bayron Blanc MD, Dr. Bergeron Attending Provider [phone] Roof PRODUCTION SUPPORT ENGINEER-C, Marbella Head Attending Provider [phone] Roof PRODUCTION SUPPORT ENGINEER-C, Marbella H Referring Provider [phone] Alexia THOMPSON, Dr. Gunter Emergency Provider [phone] Josseline RASCON, Dr. Miller Primary Care Provider Monica Mejia, Dr. Gunter Attending Provider [phone] Dr. Angela Manjarrez MD Referring Provider Unavaila bayron Kaufman PRODUCTION SUPPORT ENGINEER-CBlanca Attending Provider [phone] Dr. Angela Manjarrez MD Primary Care Provider Monica Blanc MD, Dr. Bergeron Attending Provider [phone] Dr. Angela Manjarrez MD Attending Provider Unavaila ZAHRA Holman Attending Unavailable TESTRAKE, ZAHRA Referring Unavailable TESTRAKE, ZAHRA Attending Unavailable TESTRAKE, ZAHRA Referring Unavailable TESTRAKE, ZAHRA Attending Unavailable TESTRAKE, ZAHRA Referring Unavailable TESTRAKE, ZAHRA Attending Unavailable SELF Referring Unavailable Josseline RASCON, Dr. Miller Primary Care Provider Monica Blanc MD, Dr. Bergeron Attending Provider [phone] Dr. Angela Manjarrez MD Referring Provider Unavaila bayron Roof PRODUCTION SUPPORT ENGINEER-C, Marbella Head Attending Provider [phone] Roof PRODUCTION SUPPORT ENGINEER-C, Marbella H Primary Care Provider Angela Manjarrez Primary Care Unavailable Mark Dacosta Attending Unavailable Angela Ricardo Attending Unavailable Angela Manjarrez Primary Care Unavailable Angela Manjarrez Primary Care Unavailable Roof PRODUCTION SUPPORT ENGINEER, Marbella Head Referring Unavailable Roof PRODUCTION SUPPORT ENGINEER, Marbella Head Attending Unavailable Gudla, Angela Primary Care Unavailable Roof PRODUCTION SUPPORT ENGINEER, Marbella H Referring Unavailable Jayashree [place] Attending Unavailable Gudla, Angela Primary Care Unavailable Gudla, Angela Referring Unavailable Mandeep HOFFMAN, Blanca Attending Unavailable Gudla, Angela Primary Care Unavailable Gudla OLS, Angela Referring Unavailable Gudla OLS, Angela Attending Unavailable Praneeth, Mark Referring Unavailable Praneeth, Mark Attending Unavailable Gudla, Angela Primary Care Unavailable Roof PRODUCTION SUPPORT ENGINEER, Marbella H Primary Care Unavailable Jayashree, Rubio Attending Unavailable Gudla, Angela Primary Care Unavailable Gudla OLS, Angela Attending Unavailable Jayashree, [place] Attending Unavailable Gudla, Angela Primary Care Unavailable Praneeth, Mark Attending Unavailable Gudla, Angela Primary Care Unavailable Gudla, Angela Primary Care Unavailable Roof PRODUCTION SUPPORT ENGINEER, Marbella H Referring Unavailable Roof PRODUCTION SUPPORT ENGINEER, Marbella Head Attending Unavailable Gudla, Angela Primary Care Unavailable Jani Hale Attending Unavailable Gudla, Angela Primary Care Unavailable Gudla OLS Angela Attending Unavailable Gudla, Angela Primary Care Unavailable Gudla OLS, Angela Attending Unavailable Jayashree, [place] Attending Unavailable Gudla, Angela Primary Care Unavailable Gudla, Angela Primary Care Unavailable Jayashree, [place] Attending Unavailable Gudla, Angela Referring Unavailable Gudla, Angela Primary Care Unavailable Roof PRODUCTION SUPPORT ENGINEER, Marbella Head Attending Unavailable Gudla, Angela Referring Unavailable Praneeth, Mark Attending Unavailable Gudla, Angela Primary Care Unavailable Josseline RASCON, Dr. Miller Primary Care Physician Unav ailable Josseline RASCON, Dr. Miller Attending Physician Unavail able Roof PRODUCTION SUPPORT ENGINEER-C, Marbella Head Attending Physician Roof PRODUCTION SUPPORT ENGINEER-C, Marbella Head Primary Care Physician [phone] Dr. Rubio Blanc MD Attending Physician Roof PRODUCTION SUPPORT ENGINEER-C, Marbella Head Referring Provider Dr. Mark Dacosta MD Attending Physician [phone] Allergies Allergy Classification Reported Allergen(s) Allergy Type Date of Onset Reaction(s) Facility (15 sources) Penicillins; Translations: [PENICILLINS] Propensity to adverse reactions 6 Other: See Comments [facility] Work Phone: (20 sources) Seasonal allergy; Translations: [SEASONAL ALLERGIES] Propensity to adverse reactions [address] [facility] Work Phone: (9 sources) Penicillins Propensity to adverse reactions to drug 6 Other: See Comments [facility] Work Phone: (20 sources) Penicillins Allergy to substance 2 Shortness of breath [facility] (1 source) Penicillins Propensity to adverse reactions to drug 6 Other: See Comments [facility] Work Phone: (1 source) Penicillins Drug allergy (disorder) 5 [facility] Repository Medications Current Medications Medication Drug Class(es) Dates Sig (Normalized) Sig (Original) acetaminophen 500 mg oral capsule (20 sources) Start: 03-16-2025 take 2 capsules by mouth once daily Start: 03-27-2022 take 1 capsule by mo [facility] every six hours as needed for pain Start: 01-21-2022 End: 02-20-2022 take 2 tablets [...] on above: Take 2 tablets by mo [facility] every 6 hours as needed for pain. [id number] 200 actuat albuter ol 0.09 mg/actuat metered dose inhaler (20 sources) beta2-Adrenergic Agonist Start: 12-02-2023 Start: 06-09-2019 End: 12-02-2023 Albuterol Sulfate 90 mcg/act uation HFA aerosol inhaler Discontinued 2 NMA INHALATION Q4H as needed for shortness of breath or wheezing 18 6 August 08, 2021 9:59am December 02, 2023 [...] needed for shortness of breath or wheezing 18 01July 01, 2018 12:46pm March 21, 2019 8:27am [...] needed for shortness of breath or wheezing 18 01March 24, 2018 9:39am July 01, 2018 12:46pm [...] Breath. Aluminum-Magnesium Hydroxide 225-200 mg/5 mL suspension (8 sources) Start: 06-16-2024 take 1 mL by mouth every four hours as needed Start: 06-16-2024 take 1 mL by mouth [...] 2024 1:00am apixaban 5 mg oral tablet (18 sources) Factor Xa Inhibitor Start: 12-10-2022 take 1 tablet by mouth twice daily Blood Pressure Monitor kit (20 sources) Start: [...] oral capsule (2 sources) Cephalosporin Antibacterial Start: 12-11-19 End: 12-21-19 take 1 capsule by mouth four times daily cephALEXin (KEFLEX) 500 mg capsule Take 1 capsule by mouth four times daily for 10 days. 40 capsule 0 12/10/2021 12/20/2021 Active Comment on above: Take 1 capsule by [facility] four times daily for 10 days. cholecalciferol 0.05 mg oral tablet (20 sources) Vitamin D Start: 12-02-19 take 1 tablet by mouth once daily Start: 03-27-2022 End: 12-02-2023 take 1 capsule by mouth once daily Cholecalciferol (Vitamin D3) 125 mcg (5,000 unit) capsule Discontinued 125 ug PO DAILY March 27, 2022 12:00am December 02, 2023 2:03pm Start: 01-05-2019 End: 03-27-2022 take 1 capsule by mouth once daily Cholecalciferol (Vitamin D3) 2,000 UNIT capsule Discontinued 2000 U PO DAILY January 05, 2019 12:00am March 27, 2022 10:06am supplement Comment on above: Take 1 capsule by [facility] once daily. clobetasol propionate 0.25 mg/ml topical cream (20 sources) Corticosteroid Start: 03-16-2025 Start: 03-16-2025 Clobetasol 0.0 25 % cream Active 1 NMA TOPICAL DAILY as needed March 16, 2025 12:02pm Start: 07-02-2021 End: 03-16-2025 Clobetasol 0.025 % Cream Dis continued 1 NMA TOPICAL DAILY July 02, 2021 1:00am March 16, 2025 12:10pm Start: 07-02-2021 End: 03-16-2025 Clobetasol 0.025 % Cream Dis continued 1 NMA TOPICAL DAILY July 02, 2021 1:00am March 16, 2025 12:10pm Start: 07-02-2021 Clobetasol 0.0 25 % Cream [...] mg/ml vaginal cream (20 sources) Estrogen Start: 03-16-2025 Start: 12-05-2021 End: 12-05-2023 estradiol (ESTRACE) 0.01 % ( 0.1 mg/gram) vaginal cream Indications: Labia minora agglutination Use 1 g vaginally two times a week, THEN 1 g two times a week. Apply to affected area daily for 2 weeks then twice weekly.. 42.5 g 2 12/05/2021 Active Start: 07-02-2021 End: 03-16-2025 Estradiol 0.01 % (0.1 mg/gra m) cream Discontinued 1 NMA VAGINAL .COMPLEX July 02, 2021 1:00am March 16, 2025 12:10pm APPLY TO AFFECTED AREA ONCE DAILY FOR [...] weeks then twice weekly.. Estradiol / Estriol (16 sources) Estrogen Start: 2 estradiol 0.01% estriol 0.01% topical cream (CPD) Indications: Vaginal atrophy Apply 1 gram (4 clicks) vaginally twice weekly 30 g 2 12/25/2021 Active Comment on above: Apply 1 gram (4 clic ks) vaginally twice weekly famotidine 40 mg oral tablet (20 sources) Histamine-2 Receptor Antagonist Start: 2 take 1 tablet by mouth once daily Comment on above: Take 1 tablet by [...] th one time only for 1 dose. glipiZIDE er 2.5 mg 24 hr extended release oral tablet (20 sources) Sulfonylurea Start: 3 take 1 tablet by mouth once daily take 1 tablet by joan th twice daily before mealtime glipiZIDE 2.5 mg tablet Take 2.5 mg by mouth two times a day before meals. Active 12 hr guaiFENesin 600 mg ext ended release oral tablet (18 sources) Start: 03-16-2025 take 1 tablet by joan th every twelve hours as needed, then take 1 tablet by mouth every twelve hours as needed Start: 11-03-2024 take 200 mg by mouth every six hours as needed for cough Start: 06-16-2024 End: 11-03-2024 take 1 tablet [...] as needed for pain. Take with food. loperamide hydrochloride 2 mg oral capsule (8 sources) Opioid Agonist Start: 11-03-2024 take 1 tablet by mouth once as n eeded loperamide HCl (IMODIUM A-D) 2 mg tab Take 2 mg by mouth as needed. Active loratadine 10 mg oral tablet (20 sources) Start: 03-27-2022 End: 09-26-2022 take 1 tablet by mouth once daily Start: 10-01-2021 End: 11-24-2021 take 1 tablet by mouth once daily loratadine (CLARITIN) 10 mg tablet Indications: Urticaria Take 1 tablet by mouth once daily. 30 tablet 2 10/25/2021 11/24/2021 Active Comment on above: Take 1 tablet by joan th once daily. mag hydrox/aluminum hyd/simeth (ANTACID SUSPENSION ORAL) (3 sources) mag hydrox/alumi num hyd/simeth (ANTACID SUSPENSION ORAL) Take by mouth. Active magnesium hydroxide 80 mg/ml oral suspension (20 sources) Start: take 1 mL by [...] mouth once daily as needed for constipation Start: 03-27-2022 End: 12-02-2023 take 1 mL by mouth once daily as needed Magnesium Hydroxide (Milk Of Magnesia) 400 mg/5 mL suspension Discontinued 5 mL PO DAILY as needed March 27, 2022 12:00am December 02, 2023 2:05pm Start: 03-27-2022 take 1 mL by mouth once daily Magnesium Hydroxide (Milk Of Magnesia) 400 mg/5 mL suspension Active 5 ML PO DAILY March 26, 2022 11:00pm Start: 03-27-2022 take 1 mL by mouth once daily Magnesium Hydroxide (Milk Of Magnesia) 400 mg/5 mL suspension Active 5 ML PO DAILY March 27, 2022 12:00am magnesium hydrox kendal (MILK OF MAGNESIA ORAL) Take 30 mg by mouth as needed. Active meclizine hydrochloride 25 m g oral tablet (20 sources) Antiemetic Start: 03-16-2025 take 1 tablet by joan th once daily Start: 06-12-2021 take 1 tablet by joan th every six hours as needed for dizziness Start: 02-14-2021 End: 12-02-2023 take 1 tablet by mouth once daily as needed for dizziness Meclizine 25 mg tablet Discontinued 25 mg PO DAILY as needed for Dizziness February 14, 2021 12:00am December 02, 2023 2:05pm Comment on above: Take 1 tablet by joan th every 6 hours as needed (dizziness). metoprolol tartrate 25 mg oral tablet (8 sources) beta-Adrenergic Mira Start: 11-04-19 take 1 tablet by mouth twice daily nitrofurantoin, macrocrystals 25 mg / nitrofurantoin, monohydrate [...] Comment on above: Take 1 capsule by mo [facility] twice daily with meals for 3 days. Take 1 capsule by mo [facility] twice daily for 7 days. nystatin 100 unt/mg topical powder (20 sources) Polyene Antifungal Start: 03-27-2022 Start: 03-27-2022 Nystatin Activ e 1 APPLIC [...] take 1 tablet by mouth at bedtime Comment on above: Take 1 tablet by joan th daily at bedtime. Sennosides (Senokot) 8.6 mg tablet (2 sources) Start: 5 take 2 tablets by mouth every twelve hours as needed Sennosides (Senokot) 8.6 mg tablet Active 17.2 mg PO Q12H as needed March 16, 2025 12:08pm sennosides, intermediate 8.6 mg oral tablet (20 sources) Start: 5 take 2 tablets by mouth every twelve hours as needed Start: 03-27-2022 End: 03-16-2025 take 1 tablet by mouth once daily Sennosides (Senokot) 8.6 mg tablet Discontinued 8.6 mg PO DAILY March 27, 2022 12:00am March 16, 2025 12:10pm take 1 tablet by joan th twice daily senna (SENOKOT) 8.6 mg tab Take 8.6 mg by mouth two times a day. Active sotalol hydrochloride 80 mg oral tablet (20 sources) Antiarrhythmic Start: 11-14-2024 take 1 tablet by mouth twice daily Start: 01-10-2019 End: 11-04-2024 take 1 tablet by mouth twice daily Sotalol 80 mg tablet Discontinued 80 mg PO TWICE A DAY 180 January 06, 2022 2:45pm November 04, 2024 4:59pm HEART Comment on above: Take 1 tablet by joan twice daily. tiZANidine 2 mg oral tablet (11 sources) Central alpha-2 Adrenergic Agonist Start: 12-02-2023 take 1 tablet by mouth twice daily as needed take 1 capsule by mo [facility] every eight hours as needed tiZANidine HCl (ZANAFLEX) 2 mg capsule T marsha 2 mg by mouth three times a day as needed. Active Completed/Discontinued Medications Medication Drug Class(es) Dates Sig (Normalized) Sig (Original) amLODIPine 2.5 mg oral tablet (20 sources) Dihydropyridine Calcium Channel Mira Start: 09-24-2021 End: 06-16-2024 take 1 tablet by mouth once daily Amlodipine 2.5 mg tablet Discontinued 2.5 mg PO DAILY March 27, 2022 12:00am June 16, 2024 4:22pm Comment on above: Take 1 tablet [facility] daily. aspirin 81 mg chewable tablet (20 sources) Platelet Aggregation Inhibitor, Nonsteroidal Anti-inflammatory Drug Start: 09-24-2021 End: 04-01-2024 take 1 tablet by mouth [...] once daily. cefdinir 300 mg oral capsule (20 sources) Cephalosporin Antibacterial Start: 07-02-20 End: 08-19-19 take 1 capsule by mouth twice daily Cefdinir 300 mg capsule Discontinued 300 mg PO TWICE A DAY July 02, 2021 1:00am August 19, 2021 4:36pm clindamycin 300 mg oral capsule (18 sources) Lincosamide Antibacterial Start: 09-26-19 End: 06-16-20 Clindamycin Hcl 300 mg capsule Discontinued 600 mg PO ONCE 2 September 26, 2022 1:00am June 16, 2024 2:55pm Dental work Take 2 capsules 30-60 minutes prior to dental work. Start: 09-26-2022 Clindamycin Hc l Active 600 MG PO ONCE 2 September 26, 2022 12:00am Take 2 capsules 30-60 minutes prior to dental work. diazePAM 2 mg oral tablet (20 sources) Benzodiazepine Start: 09-06-2016 End: 12-01-2017 take 1 tablet by mouth three times daily as needed Diazepam 2 MG tablet Discontinued 2 mg PO 3 TIMES DAILY NEEDED as needed for Vertigo 10 0 September 06, 2016 1:00am December 01, 2017 1:27pm causes drowsiness Disability Placard (20 sources) Start: 12-20-2018 End: 12-23-2018 Disability Placard Discontinued 0 .Route .MEDSUPPLY 1 December 20, 2018 12:00am December 14, 2019 12:00am December 23, 2018 10:08am chronic respiratory distress J96.10 As directed Start: 12-20-2018 End: 12-23-2018 Disability Placard Discontin ued 0 .Route .MEDSUPPLY 1 December 20, 2018 12:00am December 14, 2019 [...] mg tablet Discontinued 180 mg PO DAILY 30 3 November 28, 2019 1:52pm March 27, 2022 10:06am Fluticasone Furoate (20 sources) Corticosteroid Start: 03-27-2022 End: 12-02-2023 Fluticasone Furoate 200 mcg/actuation blister with device Discontinued 1 NMA INHALATION Q24H March 27, 2022 12:00am December 02, 2023 2:04pm Start: 03-27-2022 Fluticasone Fu roate Active 1 INH INHALATION Q24H March 26, 2022 11:00pm Start: 03-27-2022 Fluticasone Fu roate Active 1 INH INHALATION Q24H March 27, 2022 12:00am 30 actuat fluticasone furoat e 0.2 mg/actuat / vilanterol 0.025 mg/actuat dry powder inhaler (20 sources) Corticosteroid, beta2-Adrenergic Agonist Start: 08-12-2021 Start: 08-12-2021 Fluticasone Fu roate-Vilanterol (Breo Ellipta) 200-25 mcg/dose blister with device Active 1 NMA INHALATION DAILY 60 August 12, 2021 1:26pm Start: 08-12-2021 Fluticasone Fu roate-Vilanterol (Breo Ellipta) 200-25 mcg/dose blister with device Active 1 NMA INHALATION DAILY August 12, 2021 1:26pm Start: 08-12-2021 Fluticasone Fu roate-Vilanterol (Breo Ellipta) 200-25 mcg/dose blister with device Active 1 INH INHALATION DAILY August 12, 2021 12:26pm Start: 08-12-2021 Fluticasone [...] device Discontinued 1 NMA INHALATION DAILY 60 2 December 02, 2019 9:22am April 11, 2020 9:19am Start: 12-02-2019 End: 04-11-2020 Fluticasone Furoate-Vilanter ol 200-25 mcg/dose blister with device Discontinued 1 NMA INHALATION DAILY 60 December 02, 2019 9:22am April 11, 2020 9:19am Start: 12-02-2019 End: 04-11-2020 Fluticasone Furoate-Vilanter ol Discontinued 1 EACH INHALATION DAILY 60 December 02, 2019 8:22am April 11, 2020 8:19am Start: 12-02-2019 End: 04-11-2020 Fluticasone Furoate-Vilanter ol Discontinued 1 EACH INHALATION DAILY 60 December 02, 2019 9:22am April 11, 2020 9:19am Start: 12-02-2019 End: 12-02-2019 Fluticasone Furoate-Vilanter ol 200-25 mcg/dose blister with device Discontinued 1 NMA INHALATION DAILY 60 2 December 02, 2019 7:39am December 02, 2019 [...] device Discontinued 1 NMA INHALATION DAILY 60 2 September 12, 2019 11:55am December 02, 2019 [...] device Discontinued 1 NMA INHALATION DAILY 1 6 January 26, 2019 2:52pm January 27, 2019 8:42am ASTHMA rinse mouth after each use Start: 01-26-2019 End: 01-27-2019 Fluticasone Furoate-Vilanter ol 200-25 mcg/dose blister with device Discontinued 1 NMA INHALATION DAILY 1 January 26, 2019 2:52pm January 27, 2019 8:42am rinse mouth after each use Start: 01-26-2019 End: 01-27-2019 Fluticasone Furoate-Vilanter ol Discontinued 1 INH INHALATION DAILY 1 January 26, 2019 1:52pm January 27, 2019 7:42am rinse mouth after each use Start: 01-26-2019 End: 01-27-2019 Fluticasone Furoate-Vilanter ol Discontinued 1 INH INHALATION DAILY 1 January 26, 2019 2:52pm January 27, 2019 8:42am rinse mouth after each use Start: 11-16-2017 End: 01-26-2019 Fluticasone Furoate-Vilanter ol 200-25 mcg/dose blister with device Discontinued 1 NMA INHALATION DAILY 3 3 November 16, 2017 10:19am January 26, 2019 2:53pm ASTHMA rinse mouth after each use Start: 11-16-2017 End: 01-26-2019 Fluticasone Furoate-Vilanter ol 200-25 mcg/dose blister with device Discontinued 1 NMA INHALATION DAILY 3 November 16, 2017 10:19am January 26, 2019 2:53pm rinse mouth after each use Start: 11-16-2017 End: 01-26-2019 Fluticasone Furoate-Vilanter ol Discontinued 1 INH INHALATION DAILY 3 November 16, 2017 9:19am January 26, 2019 1:53pm rinse mouth after each use Start: 11-16-2017 End: 01-26-2019 Fluticasone Furoate-Vilanter ol Discontinued 1 INH INHALATION DAILY November 16, 2017 10:19am January 26, 2019 2:53pm rinse mouth after each use Start: 07-13-2017 End: 11-16-2017 take 1 dose by mouth once daily Fluticasone Furoate-Vilanterol 1 EACH blister with device Discontinued 1 NMA INHALATION DAILY 1 July 13, 2017 5:28pm November 16, 2017 10:19am ASTHMA rinse mouth after each use Start: 07-13-2017 [...] rinse mouth after each use Start: 12-01-2016 End: 03-16-2025 Fluticasone Furoate-Vilanter ol 200-25 mcg/dose blister with device Discontinued 1 NMA INHALATION DAILY December 02, 2023 12:00am March 16, 2025 12:04pm Start: 09-06-2016 End: 07-13-2017 take 1 dose by inhalation once daily Fluticasone Furoate-Vilanterol 1 EACH blister with device Discontinued 1 NMA IH DAILY September 06, 2016 1:00am July 13, 2017 5:30pm ASTHMA Start: 09-06-2016 End: 07-13-2017 take 1 dose [...] Inhale one puff once daily. () hydrOXYzine hydrochloride 25 mg oral tablet (7 sources) Antihistamine Start: 10-26-19 End: 12-17-19 take 1 tablet by mouth three times daily as needed hydrOXYzine HCl (ATARAX) 25 mg tablet Indications: Urticaria Take 1 tablet by mouth three times daily as needed for itching/rash. 30 tablet 0 10/25/2021 12/16/2021 Discontinued Comment on above: Take 1 tablet by joan th three times daily as needed for itching/rash. lisinopril 10 mg oral tablet (20 sources) Angiotensin Converting Enzyme Inhibitor Start: 03-27-20 End: 11-04-19 take 2 tablets by mouth twice daily Lisinopril 10 mg tablet Discontinued 20 mg PO TWICE A DAY March 27, 2022 10:05am November 03, 2024 11:23am Start: 03-27-2022 take 20 mg by mouth twice jose alfredo y Lisinopril Active 20 MG PO TWICE A DAY March 27, 2022 9:05am Start: 11-04-2021 take 1 tablet by joan twice daily Start: 07-22-2021 End: 11-04-2021 take 2 tablets [...] 10 mg PO TWICE A DAY 180 3 October 08, 2021 12:22pm March 27, 2022 10:06am Start: 08-06-2019 End: 10-04-2020 take 1 tablet by mouth once daily Lisinopril 5 MG tablet Discontinued 5 mg PO DAILY August 06, 2019 1:00am October 04, 2020 10:28am Comment on above: Take 2 tablets by mo [facility] twice daily. Take 1 tablet by joan twice daily. metFORMIN hydrochloride 500 mg oral tablet (20 sources) Biguanide Start: 8 End: take 1 tablet by mouth once daily Metformin 500 mg tablet Discontinued 500 mg PO DAILY December 01, 2017 12:00am September 26, 2022 3:43pm dm Start: 09-06-2016 End: 12-01-2017 take 1 tablet by mouth once daily Metformin 500 MG tablet,ER son.retention 24 hr Discontinued 500 mg PO DAILY September 06, 2016 1:00am December 01, 2017 1:27pm DM Comment on above: TABLET BY MOUTH EVER [...] pantoprazole 20 mg delayed release oral tablet (20 sources) Proton Pump Inhibitor Start: 0 End: [...] [Paroxysmal atrial fibrillation] Onset: 05-24-2019 05-24-2019 Chronic Conditions associated with dizziness or vertigo (20 sources) Dizziness; Translations: [Dizziness and giddiness] Onset: 05-25-2020 05-25-2020 Episodic Conduction disorders (20 sources) Cardiac pacemaker in situ; Translations: [Presence of cardiac pacemaker] Onset: 01-07-2019 05-10-2020 Chronic Diabetes mellitus with complications (4 sources) Polyneuropathy due to type 2 diabetes mellitus; Translations: [Type 2 diabetes mellitus with diabetic polyneuropathy] Onset: 03-02-2025 04-01-2024 Chronic Diabetes mellitus without complication (20 [...] vagina; 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 Mycoses (4 sources) Onychomycosis; Translations: [Tinea unguium] Onset: 03-02-2025 04-01-2024 Episodic Nonspecific chest pain (20 sources) Atypical chest pain; Translations: [Other chest pain] 01-05-2020 Episodic Other circulatory disease (14 sources) Carotid bruit; Translations: [Other specified symptoms and signs involving the circulatory and respiratory systems] 12-02-2023 Episodic Other connective tissue disease (3 sources) Pain of toe of left foot; Translations: [Pain in left toe(s)] 04-01-2024 Episodic Other connective tissue disease (3 sources) Pain of toe of right foot; Translations: [Pain in right toe(s)] 04-01-2024 Episodic Other connective tissue disease (1 source) Pain in left toe(s); Translations: [Pain in toe of left foot] Onset: 03-02-2025 Episodic Other connective tissue disease (1 source) Pain in right toe(s); Translations: [Pain in toe of right foot] Onset: 03-02-2025 Episodic Other inflammatory condition of skin (1 source) Pruritus of vulva; Translations: [Pruritus vulvae] Episodic Other lower respiratory disease (20 sources) Dyspnea on exertion; Translations: [Other forms of dyspnea] 12-14-2019 Episodic Other lower respiratory disease (20 sources) Dyspnea; Translations: [Shortness of breath] 12-14-2019 Episodic Other lower respiratory disease (20 sources) Cough; Translations: [Cough] 02-17-2020 Episodic Other nutritional; endocrine; and metabolic disorders (11 sources) Obese class I; Translations: [Obesity, unspecified] Onset: 01-21-2022 01-21-2022 Chronic Other screening for suspected conditions (not mental disorders or infectious disease) (1 source) Patient encounter status; Translations: [Encounter for screening mammogram for malignant neoplasm of breast] Episodic Other skin disorders (3 sources) Ingrowing nail; Translations: [Ingrowing nail] 04-01-2024 Episodic Other skin disorders (1 source) Ingrowing nail; Translations: [Onychocryptosis] Onset: 03-02-2025 Episodic Other upper respiratory disease (20 sources) Seasonal allergic rhinitis; Translations: [Other seasonal allergic rhinitis] 11-14-2019 Chronic Pneumonia (except that caused by tuberculosis or sexually transmitted disease) (20 sources) Pneumonia; Translations: [Pneumonia, unspecified organism] 07-10-2021 Episodic Residual codes; unclassified (2 sources) Postoperative state; Translations: [Other specified postprocedural states] Episodic Past or Other Problems Problem Classification Problem Date Documented Da te Episodic/Chronic Allergic reactions (20 sources) Urticaria; Translations: [Urticaria, unspecified] Onset: 10-25-2021 Episodic Cardiac dysrhythmias (20 sources) Bradycardia; Translations: [Bradycardia, unspecified] Onset: 11-08-2024 10-20-2019 Episodic Diabetes mellitus without complication (3 sources) Impaired fasting glycemia; Translations: [Impaired fasting glucose] Onset: 03-04-2010 Resolved: 04-20-2014 04-20-2014 Episodic Genitourinary congenital anomalies (6 sources) Fusion of vulva; Translations: [Fusion of [...] Episodic Other nutritional; endocrine; and metabolic disorders (3 sources) Obesity; Translations: [Obesity, unspecified] Onset: 06-17-2007 Resolved: 06-07-2014 06-07-2014 Chronic Results Test Name Value Interpretation Reference Range Facility Echo, Limited Studyon 2024 Echo, Limited Study [facility] [address] [place] [address] Echo, Limited Study 04/06/25 0945 MR#: [id number] Acct: [id number] Name: CLARI STEPHENS Rep #: [id number] : 1950 75 From: Mark Dacosta MD Attending Dr: Marbella Gomez, PRODUCTION SUPPORT ENGINEER-C Status: REG CLI Ordering Dr: Marbella Gomez NP PRODUCTION SUPPORT ENGINEER-C Date: 04/06/25 Location: [facility] Sex: F C Admitted: Reason For Study Reason For Study: Assess AV and LV function Procedure This was a limited 2D transthoracic echocardiogram. Exam performed in department. Left Ventricle Normal LV size. Mild concentric left ventricular hypertrophy. Left ventricular systolic function is normal. The estimated ejection fraction is 60-65 %. Stage 1 diastolic dysfunction. No regional wall motion abnormalities noted. Right Ventricle ICD or pacer leads identified within the right ventricle. Normal RV size. Normal systolic function. Atria The left and right atria are normal. ICD or pacer leads identified within the right atrium. Mitral Valve Severe mitral annular calcification. Mild (1+) mitral valve insufficiency. Tricuspid Valve Normal tricuspid valve. Mild (1+) tricuspid valve insufficiency. Pulmonary artery systolic pressure is 24 mmHg. Aortic Valve Peak aortic valve gradient 59 mmHg. Mean aortic valve gradient 33 mmHg. Bioprosthetic aortic valve. Pulmonic Valve Normal pulmonic valve. Great Vessels Normal sized aortic root. Pericardium/Pleural No pericardial effusion. MMode/2D Measurements Calculations LVIDd: 4.1 cm IVSd: 1.3 cm LVOT diam: 2.0 cm LVIDs: 2.1 cm LVPWd: 1.2 cm LVOT area: 3.3 cm2 RVDd: 3.1 cm FS: 49.4 % Ao root diam: 3.6 cm LAV(MOD-bp): 40.2 ml LVAd ap4: 23.8 cm2 LAV(MOD-bp) Indexed: 19.7 ml/m2 LVLd ap4: 6.9 cm LAV(MOD-sp2): 37.2 ml EDV(MOD-sp4): 71.2 ml LAV(MOD-sp4): 42.7 ml EDV(sp4-el): 69.2 ml LVAs ap4: 13.0 cm2 LVLs ap4: 5.6 cm ESV(MOD-sp4): 27.6 ml ESV(sp4-el): 25.5 ml EF(MOD-sp4): 61.3 % EF(sp4-el): 63.1 % LVAd ap2: 23.3 cm2 SV(MOD-sp4): 43.6 ml SV(MOD-sp2): 46.9 ml LVLd ap2: 6.3 cm SI(MOD-sp4): 21.4 ml/m2 SI(MOD-sp2): 23.0 ml/m2 EDV(MOD-sp2): 71.5 ml EDV(sp2-el): 73.6 ml LVAs ap2: 12.5 cm2 LVLs ap2: 5.4 cm ESV(MOD-sp2): 24.6 ml ESV(sp2-el): 24.5 ml EF(MOD-sp2): 65.6 % SV(sp4-el): 43.7 ml LA dimension(2D): 4.0 cm LA A4 area: 15.2 cm2 RA A4 area: 14.6 cm2 Doppler Measurements Calculations Ao V2 max: 382.7 cm/sec LV V1 max: 136.4 cm/sec SV(LVOT): 99.0 ml Ao max P.7 mmHg LV V1 max P.5 mmHg Ao V2 mean: 268.8 cm/sec LV V1 mean P.4 mmHg Ao mean P.1 mmHg LV V1 mean: 98.6 cm/sec Ao V2 VTI: 80.5 cm LV V1 VTI: 30.0 cm AV (velocity ratio): 0.37 SPENCER(I,D): 1.2 cm2 SPENCER(V,D): 1.2 cm2 TR max ana lilia: 228.9 cm/sec TR max P.0 mmHg ECHO/Echo, Limited Study Interpretation Summary The estimated ejection fraction is 60-65 %. Stage 1 diastolic dysfunction. Mild concentric left ventricular hypertrophy. Severe mitral annular calcification. Mild (1+) mitral valve insufficiency. Mild (1+) tricuspid valve insufficiency. Mean aortic valve gradient 33 mmHg. Bioprosthetic valve. LV ejection fraction and aortic valve mean gradient is unchanged from previous study 07/11/24. Ordering Physician: Marbella Gomez Referring Physician: Angela Manjarrez Performed By: Fabiola Owens RDCS 04/06/25 1335 Date Mark Dacosta MD CC: PRODUCTION SUPPORT ENGINEER-C Marbella Gomez; Angela Manjarrez MD Date Dictated: 04/06/25944 Date Transcribed: 04/06/251334 [facility] Manager: Signed Normal [facility] Limited echocardiogram repor tOrdered By: Mark Dacosta on 04-06-2025 Study report [facility] Cardi[facility] [address] [place] [address] Echo, Limited Study 04/06/25944 MR#: [id number] Acct: [id number] Name: CLARI STEPHENS Rep #:[id number] : 1950 75 From: Makr Dacosta MD Attending Dr: STEPHANY Ray Sta tus: REG CLI Ordering Dr: Marbella Gomez NP Date: 04/06/25 Location: [facility] Sex: F C Admitted: Reason For Study Reason For Study: Assess AV and LV function Procedure This was a limited 2D transthoracic echocardiogram. Exam performed in department. Left Ventricle Normal LV size. Mild concentric left ventricular hypertrophy. Left ventricular systolic function is normal. The estimated ejection fraction is 60-65 %. Stage 1 diastolic dysfunction. No regional wall motion abnormalities noted. Right Ventricle ICD or pacer leads identified within the right ventricle. Normal RV size. Normalsystolic function. Atria The left and right atria are normal. ICD or pacer leads identified within the right atrium. Mitral Valve Severe mitral annular calcification. Mild (1+) mitral valve insufficiency. Tricuspid Valve Normal tricuspid valve. Mild (1+) tricuspid valve insufficiency. Pulmonary artery systolic pressure is 24 mmHg. Aortic Valve Peak aortic valve gradient 59 mmHg. Mean aortic valve gradient 33 mmHg. Bioprosthetic aortic valve. Pulmonic Valve Normal pulmonic valve. Great Vessels Normal sized aortic root. Pericardium/Pleural No pericardial effusion. MMode/2D Measurements & Calculations LVIDd: 4.1 cm IVSd: 1.3 cm LVOT diam: 2.0 cm LVIDs: 2.1 cm LVPWd: 1.2 cm LVOT area: 3.3 cm2 RVDd: 3.1 cm FS: 49.4 % Ao root diam: 3.6 cm LAV(MOD-bp): 40.2 ml LVAd ap4: 23.8 cm2 LAV(MOD-bp) Indexed: 19.7 ml/m2 LVLd ap4: 6.9 cm LAV(MOD-sp2): 37.2 ml EDV(MOD-sp4): 71.2 ml LAV(MOD-sp4): 42.7 ml EDV(sp4-el): 69.2 ml LVAs ap4: 13.0 cm2 LVLs ap4: 5.6 cm ESV(MOD-sp4): 27.6 ml ESV(sp4-el): 25.5 ml EF(MOD-sp4): 61.3 % EF(sp4-el): 63.1 % LVAd ap2: 23.3 cm2 SV(MOD-sp4): 43.6 ml SV(MOD-sp2): 46.9 ml LVLd ap2: 6.3 cm SI(MOD-sp4): 21.4 ml/m2 SI(MOD-sp2): 23.0 ml/m2 EDV(MOD-sp2): 71.5 ml EDV(sp2-el): 73.6 ml LVAs ap2: 12.5 cm2 LVLs ap2: 5.4 cm ESV(MOD-sp2): 24.6 ml ESV(sp2-el): 24.5 ml EF(MOD-sp2): 65.6 % SV(sp4-el): 43.7 ml LA dimension(2D): 4.0 cm LA A4 area: 15.2 cm2 RA A4 area: 14.6 cm2 Doppler Measurements & Calculations Ao V2 max: 382.7 cm/sec LV V1 max: 136.4 cm/sec SV(LVOT): 99.0 ml Ao max P.7 mmHg LV V1 max P.5 mmHg Ao V2 mean: 268.8 cm/sec LV V1 mean P.4 mmHg Ao mean P.1 mmHg LV V1 mean: 98.6 cm/sec Ao V2 VTI: 80.5 cm LV V1 VTI: 30.0 cm AV (velocity ratio): 0.37 SPENCER(I,D): 1.2 cm2 SPENCER(V,D): 1.2 cm2 TR max ana lilia: 228.9 cm/sec TR max P.0 mmHg ECHO/Echo, Limited Study Interpretation Summary The estimated ejection fraction is 60-65 %. Stage 1 diastolic dysfunction. Mild concentric left ventricular hypertrophy. Severe mitral annular calcification. Mild (1+) mitral valve insufficiency. Mild (1+) tricuspid valve insufficiency. Mean aortic valve gradient 33 mmHg. Bioprosthetic valve. LV ejection fraction and aortic valve mean gradient is unchanged from previous study 07/11/24. Ordering Physician: Marbella Gomez Referring Physician: Angela Manjarrez Performed By: Fabiola Owens RDCS 04/06/25 1335 Date _ Mark Dacosta MD CC: STEPHANY Gomez; Angela Manjarrez MD ~ Date Dictated: 04/06/25944 Date Transcribed: 04/06/251334 [facility] Manager: Signed [facility] Work Phone: Cardiology Visit Reporton Cardiology Visit Report [facility] [address] [place] [address] OFFICE VISIT Date of Service: 03/16/25 MR#: [id number] Acct: [id number] Name: CLARI STEPHENS Rep #: [id number] : 1950 Provider: STEPHANY sainz Age/Sex: 75/F Location: [facility] Status: Signed HPI HPI History of Present Illness Details: This is a 75-year-old female who presents today for cardiovascular follow-up [...] daily and discharged to follow-up with cardiology. She resides at [facility] with fax number [phone]. She denies chest, arm, jaw, or neck discomfort. She states palpitations that she describes as skipping. She denies bilateral lower extremity edema. She denies claudication. She denies shortness of breath with activity, shortness of breath at rest, orthopnea, or PND. She denies chronic cough. She denies significant, sudden weight gain. She denies lightheadedness, dizziness, near-syncope, or syncope. She denies blood in urine, blood in stool, or epistaxis. He denies fever with chills. She denies myalgia. She denies fatigue. Her exercise level has remained stable. Intake Vital Signs 11/14/24 14:08 03/16/25 11:21 Height 5 ft 8 in 5 ft 8 in Weight: 199 lb BMI 30.2 BP 130/79 H Blood Pressure Location Lt brachial Position Sitting Respiration 18 Pulse 62 Pulse Source NIBP Pulse Oximetry (%) 96 Oxygen Delivery Method room air Intake Visit Reasons: 4 M Leaflet Distributor Required: No Is patient in pain?: No Allergies Penicillins Allergy (Verified 03/16/25 12:13) Shortness of breath Medications ???Medication ???Instructions ???Recorded ???Confirmed ???Type pravastatin 40 mg tablet 40 mg PO QHS CHOLESTEROL 09/06/16 03/16/25 History fluticasone furoate 200 1 inh inhalation DAILY #60 ea 08/0303/16/25 Rx mcg-vilanterol 25 mcg/dose inhalation powder (Breo Ellipta) acetaminophen 500 mg capsule 500 mg PO Q6H PRN fever or pain 03/16/25 History famotidine 40 mg tablet 40 mg PO DAILY 03/27/22 03/16/25 H istory nystatin 100,000 unit/gram topical 1 applic topical TID 03/27/22 History powder glipizide 2.5 mg tablet, extended 2.5 mg PO DAILY 09/26/22 03/16/25 History release 24 hr loratadine 10 mg tablet (Claritin) 10 mg PO DAILY 09/26/22 03/16/25 History apixaban 5 mg tablet (Eliquis) 5 mg PO BID #60 tabs 12/10/2203/03 Rx albuterol sulfate 90 mcg/actuation 2 puff inhalation Q6H PRN 03/16/25 History aerosol inhaler shortness of breath or wheezing cholecalciferol (vitamin D3) 50 50 mcg PO DAILY 12/02/23 03/16/25 History mcg (2,000 unit) tablet magnesium hydroxide 400 mg/5 mL 30 ml PO DAILY PRN constipation 03/16/25 History oral suspension (Milk of Magnesia) meclizine 25 mg tablet 25 mg PO Q6H PRN Dizziness 4 03/16/25 History tizanidine 2 mg tablet 2 mg PO BID PRN muscle spasticity 12/02/23 03/16/25 History aluminum-magnesium hydroxide 225 30 ml PO Q4H PRN PRN gi distress 1 08/16/23 03/16/25 History mg-200 mg/5 mL oral suspension guaifenesin 100 mg/5 mL oral 200 mg PO Q6H PRN cough 11/03/24 0 03/16/25 History liquid (Adult Tussin Chest Congestion) lisinopril 20 mg tablet 20 mg PO BID 11/03/24 03/16/25 His tory loperamide 2 mg capsule See Rx Instructions PO .COMPLEX 03/16/25 History (Anti-Diarrheal (loperamide)) PRN loose stool metoprolol tartrate 25 mg tablet 25 mg PO BID 11/03/24 03/16/25 His tory sotalol 80 mg tablet 80 mg PO BID 11/14/24 03/16/25 His tory acetaminophen 500 mg capsule 1,000 mg PO DAILY 03/16/25 5 History clobetasol 0.025 % topical cream 1 applic topical DAILY PRN 5 03/16/25 History estradiol 0.01% (0.1 mg/gram) 1 applic vaginal 2XW 03/16/2503/03 History vaginal cream guaifenesin 600 mg tablet, 600 mg PO Q12H PRN 03/16/25 History extended release 12 hr (Mucinex) meclizine 25 mg tablet 25 mg PO QDAY 03/16/25 03/16/25 Hi story sennosides 8.6 mg tablet (Senokot) 17.2 mg PO Q12H PRN 03/16/25 History Ejection fraction %: 60 Have you fallen in the past year?: No PFSH Medical History Dyspnea o (more content not included)... [facility] CLARI STEPHENS ([id number]) 1950 F Date Time Provider Department 03/02/25 1:00 PM ZAHRA VAZQUEZ PODIWS During your visit today, we recorded the following information about you: Ria Stovall MA 03/02/2025 1:06 PM Signed Patient presents with: Left Foot - Established Patient, Follow Up, Diabetic Foot Care Right Foot - Established Patient, Follow Up, Diabetic Foot Care Patient presents for DM2 nail care. NAPOLEON Gao Matthew 03/02/2025 12:56 PM Signed Diabetes Foot Care Instructions When [...] (or decreased sensation in your feet) a graphic art sales representative should always cut your toenails. Be Careful [...] Go to your health care provider or graphic art sales representative to treat these conditions. Zahra Vazquez 03/02/2025 1:06 PM Signed Last saw pcp; not in chart Subjective: Patient presents to clinic c/o painful toenails. They state that the nails are especially painful with shoe gear and pressure. Patient states that nails left 3rd toenail are painful. Patient admits to being diabetic. No other pedal complaints at this time. Patient states no change in medications or medical history since last visit. Objective: Patient presents to clinic ambulating in sneakers Vasc: DP and PT pulses ar (more content not included)... Normal [facility] Absolute lymphocyte countOrd ered By: Angela Manjarrez on 02-24-2025 Lymphocytes Auto (Unsp spec) [#/Vol] 2.01 10*3/uL 0.83-4.51 [facility] Absolute neutrophil countOrd ered By: Angela Manjarrez on 02-24-2025 Neutrophils (Bld) [#/Vol] 4.8 10*3/uL 2.0-7.7 [facility] Anion gap in Serum or Plasma Ordered By: Angela Manjarrez on 02-24-2025 Anion gap [Moles/Vol] 12 mmol/L - [facility] Automated lymphocyte count a s percentage of total leukocytesOrdered By: Angela Manjarrez on 02-24-2025 Lymphocytes/100 WBC Auto (Unsp spec) 26.3 % - [facility] BUN/creatinine ratioOrdered By: Angela Manjarrez on 02-24-2025 Urea nitrogen/Creatinine [Mass ratio] 18.1 mg/mg - [facility] Basophil percentageOrdered B y: Angela Manjarrez on 02-24-2025 Basophils/100 WBC (Bld) 0.7 % 0-1 [facility] Bilirubin, totalOrdered By: Angela Manjarrez on 02-24-2025 Bilirubin [Mass/Vol] 0.40 mg/dL 0.00-1.30 [facility] CBC W/Diff, Automatedon 02-01 Absolute Lymph 2.01 X10 3/uL Normal 0.83-4.51 [facility] Comment on above: Order Comment: 114 Performed By: #### L [id number], L501.9520, L500.4100, L500.4050, L100.0100 #### [facility] [address] [place], [address] Absolute Neut 4.8 X10 3/uL Normal 2.0-7.7 [facility] Comment on above: Order Comment: 114 Performed By: #### L [id number], L501.9520, L500.4100, L500.4050, L100.0100 #### [facility] [address] [place], [address] Basophils/100 WBC (Bld) 0.7 % Normal 0-1 [facility] Comment on above: Order Comment: 114 Performed By: #### L [id number], [id number], L500.4100, L500.4050, L100.0100 #### [facility] [address] [place], [address] Eosinophils/100 WBC (Bld) 2.1 % Normal 0-5 [facility] Comment on above: Order Comment: 114 Performed By: #### L 501.9985, L501.9520, L500.4100, L500.4050, L100.0100 #### [facility] [address] [place], [address] Erythrocyte distribution width (RBC) [Ratio] 14.6 % Normal 11.6-14.6 [facility] Comment on above: Order Comment: 114 Performed By: #### L 501.9985, L501.9520, L500.4100, L500.4050, L100.0100 #### [facility] [address] [place], [address] Hematocrit (Bld) [Volume fraction] 37.8 % Normal 37-47 [facility] Comment on above: Order Comment: 114 Performed By: #### L 501.9985, L501.9520, L500.4100, L500.4050, L100.0100 #### [facility] [address] [place], [address] Hemoglobin (Bld) [Mass/Vol] 12.0 g/dL Normal 12.0-15.0 [facility] Comment on above: Order Comment: 114 Performed By: #### L 501.9985, L501.9520, L500.4100, L500.4050, L100.0100 #### [facility] [address] [place], [address] IG% 0.400 Normal 0.0-0.9 [facility] Comment on above: Order Comment: 114 Result Comment: IG% - Immature Granulocytes (promyelocytes, myelocytes and metamyelocytes) > 1% indicates that a LEFT SHIFT is Present. Performed By: #### L 501.9985, L501.9520, L500.4100, L500.4050, L100.0100 #### [facility] [address], [address] Lymphocytes/100 WBC (Bld) 26.3 % Normal 19-41 [facility] Comment on above: Order Comment: 114 Performed By: #### L 501.9985, L501.9520, L500.4100, L500.4050, L100.0100 #### [facility] [address], [address] MCH (RBC) [Entitic mass] 29.1 pg Normal 27.0-32.0 [facility] Comment on above: Order Comment: 114 Performed By: #### L 501.9985, L501.9520, L500.4100, L500.4050, L100.0100 #### [facility] [address] [place], [address] MCHC (RBC) [Mass/Vol] 31.7 g/dL Low 32-36 [facility] Comment on above: Order Comment: 114 Performed By: #### L 501.9985, L501.9520, L500.4100, L500.4050, L100.0100 #### [facility] [address] [place], [address] MCV (RBC) [Entitic vol] 91.7 fL Normal 81-99 [facility] Comment on above: Order Comment: 114 Performed By: #### L 501.9985, L501.9520, L500.4100, L500.4050, L100.0100 #### [facility] [address] [place], [address] Monocytes/100 WBC (Bld) 8.5 % Normal 0-10 [facility] Comment on above: Order Comment: 114 Performed By: #### L 501.9985, L501.9520, L500.4100, L500.4050, L100.0100 #### [facility] [address] [place], [address] Neutrophils/100 WBC (Bld) 62.0 % Normal 47-70 [facility] Comment on above: Order Comment: 114 Performed By: #### L 501.9985, L501.9520, L500.4100, L500.4050, L100.0100 #### [facility] [address] [place], [address] Nucleated RBC (Bld) [#/Vol] 0 10*3/uL Normal 0-5 [facility] Comment on above: Order Comment: 114 Performed By: #### L 501.9985, L501.9520, L500.4100, L500.4050, L100.0100 #### [facility] [address] [place], [address] Platelet mean volume (Bld) [Entitic vol] 11.3 fL Normal 6.2-12.0 [facility] Comment on above: Order Comment: 114 Performed By: #### L 501.9985, L501.9520, L500.4100, L500.4050, L100.0100 #### [facility] [address] [place], [address] Platelets (Bld) [#/Vol] 176 10*3/uL Normal 150-450 [facility] Comment on above: Order Comment: 114 Performed By: #### L 501.9985, L501.9520, L500.4100, L500.4050, L100.0100 #### [facility] [address] [place], [address] RBC (Bld) [#/Vol] 4.12 10*6/uL Low 4.2-5.4 [facility] Comment on above: Order Comment: 114 Performed By: #### L 501.9985, L501.9520, L500.4100, L500.4050, L100.0100 #### [facility] [address] [place], [address] RDW SD 49.1 fl High 35.1-43.9 [facility] Comment on above: Order Comment: 114 Performed By: #### L 501.9985, L501.9520, L500.4100, L500.4050, L100.0100 #### [facility] [address] [place], [address] WBC (Bld) [#/Vol] 7.7 10*3/uL Normal 4.4-11.0 [facility] Comment on above: Order Comment: 114 Performed By: #### L 501.9985, L501.9520, L500.4100, L500.4050, L100.0100 #### [facility] [address] [place], [address] Calculated very low density lipoprotein (VLDL) cholesterol measurementOrdered By: Angela Manjarrez on 02-24-2025 Calculated very low density lipoprotein (VLDL) cholesterol measurement 33 mg/dL 5-40 [facility] Carbon dioxide, total [Moles /volume] in Central venous bloodOrdered By: Angela Manjarrez on 02-24-2025 CO2 [Moles/Vol] 20.0 mmol/L Low 21.0-32.0 [facility] Chloride assayOrdered By: Vincent Manjarrez on 02-24-2025 Chloride [Moles/Vol] 109 mmol/L High 98-108 [facility] Comprehensive Metabolic Prof ilon 02-24-2025 Albumin [Mass/Vol] 3.9 g/dL Normal 3.4-4.8 [facility] Comment on above: Order Comment: 114 Performed By: #### L 501.9985, L501.9520, L500.4100, L500.4050, L100.0100 #### [facility] [address] [place], [address] Albumin/Globulin [Mass ratio] 1.2 {ratio} Normal 0.9-2.4 [facility] Comment on above: Order Comment: 114 Performed By: #### L 501.9985, L501.9520, L500.4100, L500.4050, L100.0100 #### [facility] [address] [place], [address] ALK PHOS 119 U/L High 35-104 [facility] Comment on above: Order Comment: 114 Performed By: #### L 501.9985, L501.9520, L500.4100, L500.4050, L100.0100 #### [facility] [address] [place], [address] ALT [Catalytic activity/Vol] 20 U/L Normal <=34 [facility] Comment on above: Order Comment: 114 Performed By: #### L 501.9985, L501.9520, L500.4100, L500.4050, L100.0100 #### [facility] [address] [place], [address] AST [Catalytic activity/Vol] 26 U/L Normal <=31 [facility] Comment on above: Order Comment: 114 Performed By: #### L 501.9985, L501.9520, L500.4100, L500.4050, L100.0100 #### [facility] [address] [place], [address] Bilirubin [Mass/Vol] 0.40 mg/dL Normal 0.00-1.30 [facility] Comment on above: Order Comment: 114 Performed By: #### L [id number], L501.9520, L500.4100, L500.4050, L100.0100 #### [facility] [address] [place], [address] BUN/CRE 18.1 RATIO Normal 10-20 [facility] Comment on above: Order Comment: 114 Performed By: #### L [id number], L501.9520, L500.4100, L500.4050, L100.0100 #### [facility] [address] [place], [address] Calcium [Mass/Vol] 10.4 mg/dL Normal 7.6-11.0 [facility] Comment on above: Order Comment: 114 Performed By: #### L 501.9985, L501.9520, L500.4100, L500.4050, L100.0100 #### [facility] [address] [place], [address] Chloride [Moles/Vol] 109 mmol/L High 98-108 [facility] Comment on above: Order Comment: 114 Performed By: #### L 501.9985, L501.9520, L500.4100, L500.4050, L100.0100 #### [facility] [address] [place], [address] CO2 [Moles/Vol] 20.0 mmol/L Low 21.0-32.0 [facility] Comment on above: Order Comment: 114 Performed By: #### L [id number], L501.9520, L500.4100, L500.4050, L100.0100 #### [facility] [address] [place], [address] Creatinine [Mass/Vol] 0.95 mg/dL Normal 0.70-1.20 [facility] Comment on above: Order Comment: 114 Performed By: #### L 501.9985, L501.9520, L500.4100, L500.4050, L100.0100 #### [facility] [address] [place], [address] GAP 12 Normal 5-15 [facility] Comment on above: Order Comment: 114 Performed By: #### L 501.9985, L501.9520, L500.4100, L500.4050, L100.0100 #### [facility] [address], [address] GFR/1.73 sq M.predicted among non-blacks MDRD (S/P/Bld) [Vol rate/Area] 62 mL/min/{1.73_m2} Normal >60 [facility] Comment on above: Order Comment: 114 Result Comment: mL/m in/1.73m2 CKD-EPI Creatinine Equation (2020) Performed By: #### L 501.9985, L501.9520, L500.4100, L500.4050, L100.0100 #### [facility] [address] [place], [address] Globulin (S) [Mass/Vol] 3.2 g/dL Normal 2.2-4.2 [facility] Comment on above: Order Comment: 114 Performed By: #### L 501.9985, L501.9520, L500.4100, L500.4050, L100.0100 #### [facility] [address] [place], [address] Glucose [Mass/Vol] 142 mg/dL High 70-99 [facility] Comment on above: Order Comment: 114 Performed By: #### L 501.9985, L501.9520, L500.4100, L500.4050, L100.0100 #### [facility] [address] [place], [address] Potassium [Moles/Vol] 4.6 mmol/L Normal 3.3-5.1 [facility] Comment on above: Order Comment: 114 Performed By: #### L 501.9985, L501.9520, L500.4100, L500.4050, L100.0100 #### [facility] [address] [place], [address] Sodium [Moles/Vol] 142 mmol/L Normal 133-145 [facility] Comment on above: Order Comment: 114 Performed By: #### L 501.9985, L501.9520, L500.4100, L500.4050, L100.0100 #### [facility] [address] [place], [address] T PROT 7.1 g/dL Normal 5.9-8.4 [facility] Comment on above: Order Comment: 114 Performed By: #### L 501.9985, L501.9520, L500.4100, L500.4050, L100.0100 #### [facility] [address] [place], [address] Urea nitrogen [Mass/Vol] 17 mg/dL Normal 4-19 [facility] Comment on above: Order Comment: 114 Performed By: #### L 501.9985, L501.9520, L500.4100, L500.4050, L100.0100 #### [facility] [address] [place], [address] Eosinophil percentageOrdered By: Agnela Manjarrez on 02-24-2025 Eosinophils/100 WBC (Bld) 2.1 % 0-5 [facility] Erythrocyte distribution wid th ratioOrdered By: Angela Manjarrez on 02-24-2025 Erythrocyte distribution width (RBC) [Ratio] 14.6 % 11.6-14.6 [facility] Erythrocyte distribution wid th standard deviationOrdered By: Angela Manjarrez on 02-24-2025 Erythrocyte distribution width (RBC) [Ratio] 49.1 fl High 35.1-43.9 [facility] Glomerular filtration rate ( GFR) estimation/1.73 sq m using serum, plasma, or whole bOrdered By: Angela Manjarrez on 02-24-2025 GFR/1.73 sq M.predicted among non-blacks MDRD (S/P/Bld) [Vol rate/Area] 62 mL/min/{1.73_m2} >60 [facility] Comment on above: mL/min/1.73m2 CKD-EP I Creatinine Equation (2020) Hematocrit Auto (Bld) [Volum e fraction]Ordered By: Angela Manjarrez on 02-24-2025 Hematocrit (Bld) [Volume fraction] 37.8 % 37-47 [facility] Hemoglobin A1con 02-24-2025 HbA1c (Bld) [Mass fraction] 6.3 % High <=5.6 [facility] Comment on above: Order Comment: 114 Result Comment: Norm al < 5.7 % Prediabetic 5.7 - 6.4 % Diabetic >or= 6.5 % Please note range changes. Performed By: #### L 501.9985, L501.9520, L500.4100, L500.4050, L100.0100 #### [facility] [address] [place], [address] Hemoglobin A1c percentageOrd ered By: Angela Manjarrez on 02-24-2025 HbA1c (Bld) [Mass fraction] 6.3 % High <5.7 [facility] Comment on above: Normal < 5.7 % Predi abetic 5.7 - 6.4 % Diabetic >or= 6.5 % Please note range changes. Hemoglobin measurementOrdere d By: Angela Manjarrez on 02-24-2025 Hemoglobin (Bld) [Mass/Vol] 12.0 g/dL 12.0-15.0 [facility] Immature granulocytes/100 WB C Auto (Bld)Ordered By: Angela Manjarrez on 02-24-2025 Immature granulocytes/100 WBC (Bld) 0.400 % 0.0-0.9 [facility] Comment on above: IG% - Immature Granu locytes (promyelocytes, myelocytes and metamyelocytes) > 1% indicates that a LEFT SHIFT is Present. LDL calc ser/plasOrdered By: Angela Manjarrez on 02-24-2025 Cholesterol in LDL [Mass/Vol] 77 mg/dL [facility] Comment on above: Ilmdjjwxfr=668-297 m g/dL & Higher Jntw=928 mg/dL or greater Laboratory - Chemistry and C hemistry - challengeOrdered By: Angela Manjarrez on 02-24-2025 AST [Catalytic activity/Vol] 26 U/L <32 [facility] Lipid Profileon 02-24-2025 CHOL:HDL 3.24 Normal [facility] Comment on above: Order Comment: 114 Performed By: #### L [id number], L501.9520, L500.4100, L500.4050, L100.0100 #### [facility] [address] [place], [address] Cholesterol [Mass/Vol] 159 mg/dL Normal <=200 [facility] Comment on above: Order Comment: 114 Result Comment: Chol esterol level, Desirable <200 mg/dL Borderline high cholesterol 200-239 mg/dL High cholesterol >=240 mg/dL Recommendations of the NCEP Adult Treatment Panel for the following risk-cutoff thresholds for the [place] population. Performed By: #### L 501.9985, L501.9520, L500.4100, L500.4050, L100.0100 #### [facility] [address] [place], [address] Cholesterol in HDL [Mass/Vol] 49 mg/dL Normal [facility] Comment on above: Order Comment: 114 Result Comment: Linda onal Cholesterol Education Program (NCEP) guidelines: <40 mg/dL: Low HDL-cholesterol (major risk factor for CHD) >= 60 mg/dL: High HDL-cholesterol (negative risk factor for CHD) HDL-cholesterol is affected by a number of factors, e.g. smoking, exercise, hormones, sex and age. Performed By: #### L [id number], L501.9520, L500.4100, L500.4050, L100.0100 #### [facility] [address] [place], [address] Cholesterol in LDL [Mass/Vol] 77 mg/dL Normal [facility] Comment on above: Order Comment: 114 Result Comment: Bord cauufv=665-231 mg/dL Higher Lowo=304 mg/dL or greater Performed By: #### L 501.9985, L501.9520, L500.4100, L500.4050, L100.0100 #### [facility] [address] [place], [address] Cholesterol in VLDL [Mass/Vol] 33 mg/dL Normal 5-40 [facility] Comment on above: Order Comment: 114 Performed By: #### L 501.9985, L501.9520, L500.4100, L500.4050, L100.0100 #### [facility] [address], [address] Triglyceride [Mass/Vol] 164 mg/dL Normal [facility] Comment on above: Order Comment: 114 Result Comment: The drugs N-Acetylcysteine and Metamizole may falsely depress this assay. Normal range: <150 mg/dL Borderline High: 150-199 mg/dL High: 200-499 mg/dL Very High: >500 mg/dL Performed By: #### L 501.9985, L501.9520, L500.4100, L500.4050, L100.0100 #### [facility] [address], [address] MCV (mean corpuscular volume ) determinationOrdered By: Angela Manjarrez on 02-24-2025 MCV (RBC) [Entitic vol] 91.7 fL 81-99 [facility] Mean corpuscular hemoglobin (MCH) determinationOrdered By: Angela Manjarrez on 02-24-2025 MCH (RBC) [Entitic mass] 29.1 pg 27.0-32.0 [facility] Mean corpuscular hemoglobin concentration (MCHC) determinationOrdered By: Angela Manjarrez on 02-24-2025 MCHC (RBC) [Mass/Vol] 31.7 g/dL Low 32-36 [facility] Mean platelet volume determi nationOrdered By: Angela Manjarrez on 02-24-2025 Platelet mean volume (Bld) [Entitic vol] 11.3 fL 6.2-12.0 [facility] Monocyte percentageOrdered B y: Angela Manjarrez on 02-24-2025 Monocytes/100 WBC (Bld) 8.5 % 0-10 [facility] Neutrophil percentageOrdered By: Angela Manjarrez on 02-24-2025 Neutrophils/100 WBC (Bld) 62.0 % 47-70 [facility] Nucleated red blood cell per centageOrdered By: Angela Manjarrez on 02-24-2025 Nucleated RBC/100 WBC (Bld) [Ratio] 0 % 0-5 [facility] Platelet countOrdered By: Vincent Manjarrez on 02-24-2025 Platelets (Bld) [#/Vol] 176 10*3/uL 150-450 [facility] Potassium measurement (mass/ volume)Ordered By: Angela Manjarrez on 02-24-2025 Potassium (Unsp spec) [Mass/Vol] 4.6 mmol/L 3.3-5.1 [facility] RBC Auto (Bld) [#/Vol]Ordere d By: Angela Manjarrez on 02-24-2025 RBC (Bld) [#/Vol] 4.12 10*6/uL Low 4.2-5.4 [facility] Screening total cholesterol/ high density lipoprotein (HDL) cholesterol ratioOrdered By: Angela Manjarrez on 02-24-2025 Cholesterol.total/Choles terol in HDL [Mass ratio] 3.24 {ratio} [facility] Serum creatinine measurement (mass/volume)Ordered By: Angela Manjarrez on 02-24-2025 Creatinine [Mass/Vol] 0.95 mg/dL 0.70-1.20 [facility] Serum globulin measurementOr dered By: Angela Manjarrez on 02-24-2025 Globulin (S) [Mass/Vol] 3.2 g/dL 2.2-4.2 [facility] Serum glucose measurement (m ass/volume)Ordered By: Angela Manjarrez on 02-24-2025 Glucose [Mass/Vol] 142 mg/dL High 70-99 [facility] Serum or plasma alanine an otransferase (ALT) measurementOrdered By: Angela Manjarrez on 07-25-2025 ALT [Catalytic activity/Vol] 20 U/L <35 [facility] Serum or plasma albumin jia urement (mass/volume)Ordered By: Angela Manjarrez on 02-24-2025 Albumin [Mass/Vol] 3.9 g/dL 3.4-4.8 [facility] Serum or plasma albumin/glob ulin mass ratioOrdered By: Angela Manjarrez on 02-24-2025 Albumin/Globulin [Mass ratio] 1.2 {ratio} 0.9-2.4 [facility] Serum or plasma alkaline michael sphatase measurementOrdered By: Angela Manjarrez on 02-24-2025 ALP [Catalytic activity/Vol] 119 U/L High 35-104 [facility] Serum or plasma calcium jia urement (mass/volume)Ordered By: Angela Manjarrez on 02-24-2025 Calcium [Mass/Vol] 10.4 mg/dL 7.6-11.0 [facility] Serum or plasma cholesterol in HDL measurement (mass/volume)Ordered By: Angela Manjarrez on 02-24-2025 Cholesterol in HDL [Mass/Vol] 49 mg/dL >40 [facility] Comment on above: National Cholesterol Education Program (NCEP) guidelines:<40 mg/dL: Low HDL-cholesterol (major risk factor for CHD)>= 60 mg/dL: High HDL-cholesterol (negative risk factor for CHD)HDL-cholesterol is affected by a number of factors, e.g. smoking, exercise, hormones, sex and age. Serum or plasma cholesterol measurement (mass/volume)Ordered By: Angela Manjarrez on 02-24-2025 Cholesterol [Mass/Vol] 159 mg/dL <201 [facility] Comment on above: Cholesterol level, D esirable <200 mg/dLBorderline high cholesterol 200-239 mg/dLHigh cholesterol >=240 mg/dLRecommendations of the NCEP Adult Treatment Panel for the following risk-cutoff thresholds for the [place] population. Serum or plasma urea nitroge n measurement (mass/volume)Ordered By: Angela Manjarrez on 02-24-2025 Urea nitrogen [Mass/Vol] 17 mg/dL 4-19 [facility] Sodium levelOrdered By: Brandyn Manjarrez on 02-24-2025 Sodium [Moles/Vol] 142 mmol/L 133-145 [facility] TSH DL <= 0.005 mIU/L QnOrde red By: Angela Manjarrez on 02-24-2025 TSH Qn 2.870 uIU/mL 0.300-4.200 [facility] Thyroid Stim Hormone (TSH)on 02-24-2025 TSH 2.870 uIU/mL Normal 0.300-4.200 [facility] Comment on above: Order Comment: 114 Performed By: #### L [id number], L501.9520, L500.4100, L500.4050, L100.0100 #### [facility] [address] [place], [place], [address] Total proteinOrdered By: Roxi Manjarrez on 02-24-2025 Protein [Mass/Vol] 7.1 g/dL 5.9-8.4 [facility] Triglycerides measurementOrd ered By: Angela Manjarrez on 02-24-2025 Triglyceride [Mass/Vol] 164 mg/dL <199 [facility] Comment on above: The drugs N-Acetylcy steine and Metamizole may falsely depress this assay. Normal range: <150 mg/dLBorderline High: 150-199 mg/dLHigh: 200-499 mg/dLVery High: >500 mg/dL White blood cell (WBC) count Ordered By: Angela Manjarrez on 02-24-2025 WBC (Bld) [#/Vol] 7.7 10*3/uL 4.4-11.0 [facility] Absolute lymphocyte countOrd ered By: Angela Manjarrez on 11-25-2024 Lymphocytes Auto (Unsp spec) [#/Vol] 1.98 10*3/uL 0.83-4.51 [facility] Absolute neutrophil countOrd ered By: Angela Manjarrez on 11-25-2024 Neutrophils (Bld) [#/Vol] 4.6 10*3/uL 2.0-7.7 [facility] Anion gap in Serum or Plasma Ordered By: Angela Manjarrez on 11-25-2024 Anion gap [Moles/Vol] 11 mmol/L 5- [facility] Automated lymphocyte count a s percentage of total leukocytesOrdered By: Angela Manjarrez on 11-25-2024 Lymphocytes/100 WBC Auto (Unsp spec) 25.7 % - [facility] BUN/creatinine ratioOrdered By: Angela Manjarrez on 11-25-2024 Urea nitrogen/Creatinine [Mass ratio] 22.1 mg/mg High 10- [facility] Basophil percentageOrdered B y: Angela Manjarrez on 11-25-2024 Basophils/100 WBC (Bld) 0.9 % 0-1 [facility] Bilirubin, totalOrdered By: Angela Manjarrez on 11-25-2024 Bilirubin [Mass/Vol] 0.33 mg/dL 0.00-1.30 [facility] CBC W/Diff, Automatedon 11-02 Absolute Lymph 1.98 X10 3/uL Normal 0.83-4.51 [facility] Comment on above: Order Comment: 114 Performed By: #### L 501.9985, L501.9520, L500.4100, L500.4050, L100.0100 #### [facility] [address] [place], [address] Absolute Neut 4.6 X10 3/uL Normal 2.0-7.7 [facility] Comment on above: Order Comment: 114 Performed By: #### L [id number], L501.9520, L500.4100, L500.4050, L100.0100 #### [facility] [address] [place], [address] Basophils/100 WBC (Bld) 0.9 % Normal 0-1 [facility] Comment on above: Order Comment: 114 Performed By: #### L [id number], L501.9520, L500.4100, L500.4050, L100.0100 #### [facility] [address] [place], [address] Eosinophils/100 WBC (Bld) 2.3 % Normal 0-5 [facility] Comment on above: Order Comment: 114 Performed By: #### L 501.9985, L501.9520, L500.4100, L500.4050, L100.0100 #### [facility] [address] [place], [address] Erythrocyte distribution width (RBC) [Ratio] 16.0 % High 11.6-14.6 [facility] Comment on above: Order Comment: 114 Performed By: #### L 501.9985, L501.9520, L500.4100, L500.4050, L100.0100 #### [facility] [address] [place], [address] Hematocrit (Bld) [Volume fraction] 34.5 % Low 37-47 [facility] Comment on above: Order Comment: 114 Performed By: #### L 501.9985, L501.9520, L500.4100, L500.4050, L100.0100 #### [facility] [address] [place], [address] Hemoglobin (Bld) [Mass/Vol] 10.8 g/dL Low 12.0-15.0 [facility] Comment on above: Order Comment: 114 Performed By: #### L 501.9985, L501.9520, L500.4100, L500.4050, L100.0100 #### [facility] [address] [place], [address] IG% 0.300 Normal 0.0-0.9 [facility] Comment on above: Order Comment: 114 Result Comment: IG% - Immature Granulocytes (promyelocytes, myelocytes and metamyelocytes) > 1% indicates that a LEFT SHIFT is Present. Performed By: #### L 501.9985, L501.9520, L500.4100, L500.4050, L100.0100 #### [facility] [address] [place], [address] Lymphocytes/100 WBC (Bld) 25.7 % Normal 19-41 [facility] Comment on above: Order Comment: 114 Performed By: #### L 501.9985, L501.9520, L500.4100, L500.4050, L100.0100 #### [facility] [address] [place], [address] MCH (RBC) [Entitic mass] 29.1 pg Normal 27.0-32.0 [facility] Comment on above: Order Comment: 114 Performed By: #### L 501.9985, L501.9520, L500.4100, L500.4050, L100.0100 #### [facility] [address] [place], [address] MCHC (RBC) [Mass/Vol] 31.3 g/dL Low 32-36 [facility] Comment on above: Order Comment: 114 Performed By: #### L 501.9985, L501.9520, L500.4100, L500.4050, L100.0100 #### [facility] [address] [place], [address] MCV (RBC) [Entitic vol] 93.0 fL Normal 81-99 [facility] Comment on above: Order Comment: 114 Performed By: #### L 501.9985, L501.9520, L500.4100, L500.4050, L100.0100 #### [facility] [address] [place], [address] Monocytes/100 WBC (Bld) 11.3 % High 0-10 [facility] Comment on above: Order Comment: 114 Performed By: #### L 501.9985, L501.9520, L500.4100, L500.4050, L100.0100 #### [facility] [address] [place], [address] Neutrophils/100 WBC (Bld) 59.5 % Normal 47-70 [facility] Comment on above: Order Comment: 114 Performed By: #### L 501.9985, L501.9520, L500.4100, L500.4050, L100.0100 #### [facility] [address] [place], [address] Nucleated RBC (Bld) [#/Vol] 0 10*3/uL Normal 0-5 [facility] Comment on above: Order Comment: 114 Performed By: #### L 501.9985, L501.9520, L500.4100, L500.4050, L100.0100 #### [facility] [address] [place], [address] Platelet mean volume (Bld) [Entitic vol] 11.8 fL Normal 6.2-12.0 [facility] Comment on above: Order Comment: 114 Performed By: #### L 501.9985, L501.9520, L500.4100, L500.4050, L100.0100 #### [facility] [address] [place], [address] Platelets (Bld) [#/Vol] 175 10*3/uL Normal 150-450 [facility] Comment on above: Order Comment: 114 Performed By: #### L 501.9985, L501.9520, L500.4100, L500.4050, L100.0100 #### [facility] [address] [place], [address] RBC (Bld) [#/Vol] 3.71 10*6/uL Low 4.2-5.4 [facility] Comment on above: Order Comment: 114 Performed By: #### L 501.9985, L501.9520, L500.4100, L500.4050, L100.0100 #### [facility] [address] [place], [address] RDW SD 54.9 fl High 35.1-43.9 [facility] Comment on above: Order Comment: 114 Performed By: #### L 501.9985, L501.9520, L500.4100, L500.4050, L100.0100 #### [facility] [address] [place], [place], [id number] WBC (Bld) [#/Vol] 7.7 10*3/uL Normal 4.4-11.0 [facility] Comment on above: Order Comment: 114 Performed By: #### L 501.9985, L501.9520, L500.4100, L500.4050, L100.0100 #### [facility] [address] [place], [place], [address] CNOVon 11-25-2024 CNOV Office Visit (PODIWS) CLARI STEPHENS ([id number]) 1950 F Date Time Provider Department 11/25/24 [...] (or decreased sensation in your feet) a graphic art sales representative should always cut your toenails. Be Careful [...] Go to your health care provider or graphic art sales representative to treat these conditions. Zahra Vazquez 11/25/2024 [...] Objective: Patient presents to clinic ambulating in sneakers Vasc: DP and PT pu (more content not included)... Normal [facility] Calculated very low density lipoprotein (VLDL) cholesterol measurementOrdered By: Angela Manjarrez on 11-25-2024 Calculated very low density lipoprotein (VLDL) cholesterol measurement 26 mg/dL 5-40 [facility] Carbon dioxide, total [Moles /volume] in Central venous bloodOrdered By: Angela Manjarrez on 11-25-2024 CO2 [Moles/Vol] 20.3 mmol/L Low 21.0-32.0 [facility] Chloride assayOrdered By: Gurpreetanthony charanjitlloyd Manjarrez on 11-25-2024 Chloride [Moles/Vol] 112 mmol/L High 98-108 [facility] Comprehensive Metabolic Prof ilon 11-25-2024 Albumin [Mass/Vol] 3.5 g/dL Normal 3.4-4.8 [facility] Comment on above: Order Comment: 114 Performed By: #### L 501.9985, L501.9520, L500.4100, L500.4050, L100.0100 #### [facility] [address] [place], [address] Albumin/Globulin [Mass ratio] 1.4 {ratio} Normal 0.9-2.4 [facility] Comment on above: Order Comment: 114 Performed By: #### L [id number], L501.9520, L500.4100, L500.4050, L100.0100 #### [facility] [address] [place], [address] ALK PHOS 93 U/L Normal 35-104 [facility] Comment on above: Order Comment: 114 Performed By: #### L [id number], L501.9520, L500.4100, L500.4050, L100.0100 #### [facility] [address] [place], [address] ALT [Catalytic activity/Vol] 20 U/L Normal <=34 [facility] Comment on above: Order Comment: 114 Performed By: #### L [id number], L501.9520, L500.4100, L500.4050, L100.0100 #### [facility] [address] [place], [address] AST [Catalytic activity/Vol] 25 U/L Normal <=31 [facility] Comment on above: Order Comment: 114 Performed By: #### L 501.9985, L501.9520, L500.4100, L500.4050, L100.0100 #### [facility] [address] [place], [address] Bilirubin [Mass/Vol] 0.33 mg/dL Normal 0.00-1.30 [facility] Comment on above: Order Comment: 114 Performed By: #### L 501.9985, L501.9520, L500.4100, L500.4050, L100.0100 #### [facility] [address], [address] BUN/CRE 22.1 RATIO High 10-20 [facility] Comment on above: Order Comment: 114 Performed By: #### L 501.9985, L501.9520, L500.4100, L500.4050, L100.0100 #### [facility] [address] [place], [address] Calcium [Mass/Vol] 9.3 mg/dL Normal 7.6-11.0 [facility] Comment on above: Order Comment: 114 Performed By: #### L 501.9985, L501.9520, L500.4100, L500.4050, L100.0100 #### [facility] [address] [place], [address] Chloride [Moles/Vol] 112 mmol/L High 98-108 [facility] Comment on above: Order Comment: 114 Performed By: #### L 501.9985, L501.9520, L500.4100, L500.4050, L100.0100 #### [facility] [address] [place], [address] CO2 [Moles/Vol] 20.3 mmol/L Low 21.0-32.0 [facility] Comment on above: Order Comment: 114 Performed By: #### L 501.9985, L501.9520, L500.4100, L500.4050, L100.0100 #### [facility] [address] [place], [address] Creatinine [Mass/Vol] 0.91 mg/dL Normal 0.70-1.20 [facility] Comment on above: Order Comment: 114 Performed By: #### L 501.9985, L501.9520, L500.4100, L500.4050, L100.0100 #### [facility] [address] [place], [address] GAP 11 Normal 5-15 [facility] Comment on above: Order Comment: 114 Performed By: #### L 501.9985, L501.9520, L500.4100, L500.4050, L100.0100 #### [facility] [address] [place], [address] GFR/1.73 sq M.predicted among non-blacks MDRD (S/P/Bld) [Vol rate/Area] 65 mL/min/{1.73_m2} Normal >60 [facility] Comment on above: Order Comment: 114 Result Comment: mL/m in/1.73m2 CKD-EPI Creatinine Equation (2020) Performed By: #### L 501.9985, L501.9520, L500.4100, L500.4050, L100.0100 #### [facility] [address] [place], [address] Globulin (S) [Mass/Vol] 2.5 g/dL Normal 2.2-4.2 [facility] Comment on above: Order Comment: 114 Performed By: #### L 501.9985, L501.9520, L500.4100, L500.4050, L100.0100 #### [facility] [address] [place], [address] Glucose [Mass/Vol] 106 mg/dL High 70-99 [facility] Comment on above: Order Comment: 114 Performed By: #### L 501.9985, L501.9520, L500.4100, L500.4050, L100.0100 #### [facility] [address] [place], [address] Potassium [Moles/Vol] 4.3 mmol/L Normal 3.3-5.1 [facility] Comment on above: Order Comment: 114 Performed By: #### L 501.9985, L501.9520, L500.4100, L500.4050, L100.0100 #### [facility] [address] [place], [address] Sodium [Moles/Vol] 144 mmol/L Normal 133-145 [facility] Comment on above: Order Comment: 114 Performed By: #### L 501.9985, L501.9520, L500.4100, L500.4050, L100.0100 #### [facility] [address] [place], [address] T PROT 5.9 g/dL Normal 5.9-8.4 [facility] Comment on above: Order Comment: 114 Performed By: #### L 501.9985, L501.9520, L500.4100, L500.4050, L100.0100 #### [facility] [address] [place], [address] Urea nitrogen [Mass/Vol] 20 mg/dL High 4-19 [facility] Comment on above: Order Comment: 114 Performed By: #### L 501.9985, L501.9520, L500.4100, L500.4050, L100.0100 #### [facility] [address] [place], [address] Eosinophil percentageOrdered By: Angela Manjarrez on 11-25-2024 Eosinophils/100 WBC (Bld) 2.3 % 0-5 [facility] Erythrocyte distribution wid th ratioOrdered By: Angela Manjarrez on 11-25-2024 Erythrocyte distribution width (RBC) [Ratio] 16.0 % High 11.6-14.6 [facility] Erythrocyte distribution wid th standard deviationOrdered By: Angela Manjarrez on 11-25-2024 Erythrocyte distribution width (RBC) [Ratio] 54.9 fl High 35.1-43.9 [facility] Glomerular filtration rate ( GFR) estimation/1.73 sq m using serum, plasma, or whole bOrdered By: Angela Manjarrez on 11-25-2024 GFR/1.73 sq M.predicted among non-blacks MDRD (S/P/Bld) [Vol rate/Area] 65 mL/min/{1.73_m2} >60 [facility] Comment on above: mL/min/1.73m2 CKD-EP I Creatinine Equation (2020) Hematocrit Auto (Bld) [Volum e fraction]Ordered By: Angela Manjarrez on 11-25-2024 Hematocrit (Bld) [Volume fraction] 34.5 % Low 37-47 [facility] Hemoglobin A1con 11-25-2024 HbA1c (Bld) [Mass fraction] 6.2 % High <=5.6 [facility] Comment on above: Order Comment: 114 Result Comment: Norm al < 5.7 % Prediabetic 5.7 - 6.4 % Diabetic >or= 6.5 % Please note range changes. Performed By: #### L 501.9985, L501.9520, L500.4100, L500.4050, L100.0100 #### [facility] [address] [place], [address] Hemoglobin A1c percentageOrd ered By: Angela Manjarrez on 11-25-2024 HbA1c (Bld) [Mass fraction] 6.2 % High <5.7 [facility] Comment on above: Normal < 5.7 % Predi abetic 5.7 - 6.4 % Diabetic >or= 6.5 % Please note range changes. Hemoglobin measurementOrdere d By: Angela Manjarrez on 11-25-2024 Hemoglobin (Bld) [Mass/Vol] 10.8 g/dL Low 12.0-15.0 [facility] Immature granulocytes/100 WB C Auto (Bld)Ordered By: Angela Manjarrez on 11-25-2024 Immature granulocytes/100 WBC (Bld) 0.300 % 0.0-0.9 [facility] Comment on above: IG% - Immature Granu locytes (promyelocytes, myelocytes and metamyelocytes) > 1% indicates that a LEFT SHIFT is Present. LDL calc ser/plasOrdered By: Angela Manjarrez on 11-25-2024 Cholesterol in LDL [Mass/Vol] 75 mg/dL [facility] Comment on above: Voxasayijg=006-146 m g/dL & Higher Vuga=716 mg/dL or greater Laboratory - Chemistry and C hemistry - challengeOrdered By: Angela Manjarrez on 11-25-2024 AST [Catalytic activity/Vol] 25 U/L <32 [facility] Lipid Profileon 11-25-2024 CHOL:HDL 3.55 Normal [facility] Comment on above: Order Comment: 114 Performed By: #### L 501.9985, L501.9520, L500.4100, L500.4050, L100.0100 #### [facility] [address] [place], [address] Cholesterol [Mass/Vol] 141 mg/dL Normal <=200 [facility] Comment on above: Order Comment: 114 Result Comment: Chol esterol level, Desirable <200 mg/dL Borderline high cholesterol 200-239 mg/dL High cholesterol >=240 mg/dL Recommendations of the NCEP Adult Treatment Panel for the following risk-cutoff thresholds for the [place] population. Performed By: #### L 501.9985, L501.9520, L500.4100, L500.4050, L100.0100 #### [facility] [address] [place], [address] Cholesterol in HDL [Mass/Vol] 40 mg/dL Normal [facility] Comment on above: Order Comment: 114 Result Comment: Linda onal Cholesterol Education Program (NCEP) guidelines: <40 mg/dL: Low HDL-cholesterol (major risk factor for CHD) >= 60 mg/dL: High HDL-cholesterol (negative risk factor for CHD) HDL-cholesterol is affected by a number of factors, e.g. smoking, exercise, hormones, sex and age. Performed By: #### L 501.9985, L501.9520, L500.4100, L500.4050, L100.0100 #### [facility] [address] [place], [address] Cholesterol in LDL [Mass/Vol] 75 mg/dL Normal [facility] Comment on above: Order Comment: 114 Result Comment: Bord ylkwzw=949-045 mg/dL Higher Lwvk=537 mg/dL or greater Performed By: #### L 501.9985, L501.9520, L500.4100, L500.4050, L100.0100 #### [facility] [address] [place], [address] Cholesterol in VLDL [Mass/Vol] 26 mg/dL Normal 5-40 [facility] Comment on above: Order Comment: 114 Performed By: #### L 501.9985, L501.9520, L500.4100, L500.4050, L100.0100 #### [facility] [address] [place], [address] Triglyceride [Mass/Vol] 130 mg/dL Normal [facility] Comment on above: Order Comment: 114 Result Comment: The drugs N-Acetylcysteine and Metamizole may falsely depress this assay. Normal range: <150 mg/dL Borderline High: 150-199 mg/dL High: 200-499 mg/dL Very High: >500 mg/dL Performed By: #### L 501.9985, L501.9520, L500.4100, L500.4050, L100.0100 #### [facility] [address] [place], [address] MCV (mean corpuscular volume ) determinationOrdered By: Angela Manjarrez on 11-25-2024 MCV (RBC) [Entitic vol] 93.0 fL 81-99 [facility] Mean corpuscular hemoglobin (MCH) determinationOrdered By: Angela Manjarrez on 11-25-2024 MCH (RBC) [Entitic mass] 29.1 pg 27.0-32.0 [facility] Mean corpuscular hemoglobin concentration (MCHC) determinationOrdered By: Angela Manjarrez on 11-25-2024 MCHC (RBC) [Mass/Vol] 31.3 g/dL Low 32-36 [facility] Mean platelet volume determi nationOrdered By: Angela Manjarrez on 11-25-2024 Platelet mean volume (Bld) [Entitic vol] 11.8 fL 6.2-12.0 [facility] Monocyte percentageOrdered B y: Angela Manjarrez on 11-25-2024 Monocytes/100 WBC (Bld) 11.3 % High 0-10 [facility] Neutrophil percentageOrdered By: Angela Manjarrez on 11-25-2024 Neutrophils/100 WBC (Bld) 59.5 % 47-70 [facility] Nucleated red blood cell per centageOrdered By: Angela Manjarrez on 11-25-2024 Nucleated RBC/100 WBC (Bld) [Ratio] 0 % 0-5 [facility] Platelet countOrdered By: Vincent Manjarrez on 11-25-2024 Platelets (Bld) [#/Vol] 175 10*3/uL 150-450 [facility] Potassium measurement (mass/ volume)Ordered By: Angela Manjarrez on 11-25-2024 Potassium (Unsp spec) [Mass/Vol] 4.3 mmol/L 3.3-5.1 [facility] RBC Auto (Bld) [#/Vol]Ordere d By: Angela Manjarrez on 11-25-2024 RBC (Bld) [#/Vol] 3.71 10*6/uL Low 4.2-5.4 [facility] Screening total cholesterol/ high density lipoprotein (HDL) cholesterol ratioOrdered By: Angela Manjarrez on 11-25-2024 Cholesterol.total/Choles terol in HDL [Mass ratio] 3.55 {ratio} [facility] Serum creatinine measurement (mass/volume)Ordered By: Angela Manjarrez on 11-25-2024 Creatinine [Mass/Vol] 0.91 mg/dL 0.70-1.20 [facility] Serum globulin measurementOr dered By: Angela Manjarrez on 11-25-2024 Globulin (S) [Mass/Vol] 2.5 g/dL 2.2-4.2 [facility] Serum glucose measurement (m ass/volume)Ordered By: Angela Manjarrez on 11-25-2024 Glucose [Mass/Vol] 106 mg/dL High 70-99 [facility] Serum or plasma alanine an otransferase (ALT) measurementOrdered By: Angela Manjarrez on 11-25-2024 ALT [Catalytic activity/Vol] 20 U/L <35 [facility] Serum or plasma albumin jia urement (mass/volume)Ordered By: Angela Manjarrez on 11-25-2024 Albumin [Mass/Vol] 3.5 g/dL 3.4-4.8 [facility] Serum or plasma albumin/glob ulin mass ratioOrdered By: Angelaerick Manjarrez on 11-25-2024 Albumin/Globulin [Mass ratio] 1.4 {ratio} 0.9-2.4 [facility] Serum or plasma alkaline michael sphatase measurementOrdered By: Angela Manjarrez on 11-25-2024 ALP [Catalytic activity/Vol] 93 U/L 35-104 [facility] Serum or plasma calcium jia urement (mass/volume)Ordered By: Angela Manjarrez on 11-25-2024 Calcium [Mass/Vol] 9.3 mg/dL 7.6-11.0 [facility] Serum or plasma cholesterol in HDL measurement (mass/volume)Ordered By: Angela Manjarrez on 11-25-2024 Cholesterol in HDL [Mass/Vol] 40 mg/dL >40 [facility] Comment on above: National Cholesterol Education Program (NCEP) guidelines:<40 mg/dL: Low HDL-cholesterol (major risk factor for CHD)>= 60 mg/dL: High HDL-cholesterol (negative risk factor for CHD)HDL-cholesterol is affected by a number of factors, e.g. smoking, exercise, hormones, sex and age. Serum or plasma cholesterol measurement (mass/volume)Ordered By: Angela Manjarrez on 11-25-2024 Cholesterol [Mass/Vol] 141 mg/dL <201 [facility] Comment on above: Cholesterol level, D esirable <200 mg/dLBorderline high cholesterol 200-239 mg/dLHigh cholesterol >=240 mg/dLRecommendations of the NCEP Adult Treatment Panel for the following risk-cutoff thresholds for the [place] population. Serum or plasma urea nitroge n measurement (mass/volume)Ordered By: Angela Manjarrez on 11-25-2024 Urea nitrogen [Mass/Vol] 20 mg/dL High 4-19 [facility] Sodium levelOrdered By: Brandyn Manjarrez on 11-25-2024 Sodium [Moles/Vol] 144 mmol/L 133-145 [facility] TSH DL <= 0.005 mIU/L QnOrde red By: Angela Manjarrez on 11-25-2024 TSH Qn 2.480 uIU/mL 0.300-4.200 [facility] Thyroid Stim Hormone (TSH)on 11-25-2024 TSH 2.480 uIU/mL Normal 0.300-4.200 [facility] Comment on above: Order Comment: 114 Performed By: #### L 501.9985, L501.9520, L500.4100, L500.4050, L100.0100 #### [facility] [address] [place], [place], [address] Total proteinOrdered By: Roxi Manjarrez on 11-25-2024 Protein [Mass/Vol] 5.9 g/dL 5.9-8.4 [facility] Triglycerides measurementOrd ered By: Angela Manjarrez on 11-25-2024 Triglyceride [Mass/Vol] 130 mg/dL <199 [facility] Comment on above: The drugs N-Acetylcy steine and Metamizole may falsely depress this assay. Normal range: <150 mg/dLBorderline High: 150-199 mg/dLHigh: 200-499 mg/dLVery High: >500 mg/dL White blood cell (WBC) count Ordered By: Angela Manjarrez on 11-25-2024 WBC (Bld) [#/Vol] 7.7 10*3/uL 4.4-11.0 [facility] 12 Lead EKG performed by [facility] on 11-14-2024 12 Lead EKG performed by [facility] [address] [place] [address] 12 Lead EKG performed by [facility] 11/14/24 1409 MR#: [id number] Acct: [id number] Name: CLARI STEPHENS Rep #: [id number] : 1950 74 From: Blanca Kaufman NP PRODUCTION SUPPORT ENGINEER-C Attending Dr: Blanca Kaufman PRODUCTION SUPPORT ENGINEER-C Status: ALYSON CLARKE Ordering Dr: Blanca Kaufman PRODUCTION SUPPORT ENGINEER PRODUCTION SUPPORT ENGINEER-C Date: 11/14/24 Location: [facility] Sex: F C Admitted: BMS/12 Lead EKG performed by [facility] ECG Report Interpretation ------Atrial pacingElectronically signed on 11/15/2024 at 14:55 by Rubio Blanc [employer] Version [id number] 11/15/24 1459 Date Blanca Kaufman NP PRODUCTION SUPPORT ENGINEER-C CC: Angela Manjarrez MD Date Dictated: 11/14/241408 Date Transcribed: 11/14/241408 [facility] Manager: ALICE Signed Normal [facility] Cardiology Visit Reporton Cardiology Visit Report [facility] [address] [place] [address] OFFICE VISIT Date of Service: 11/14/24 MR#: [id number] Acct: [id number] Name: CLARI STEPHENS Rep #: [id number] : 1950 Provider: STEPHANY dang Age/Sex: 74/F Location: [facility] [place] Status: Signed HPI HPI History of Present [...] Oximetry (%) 97 Intake Visit Reasons: S/P [facility] 11/03 Leaflet Distributor Required: No Is patient in pain?: No [...] you fallen in the past year?: No [facility] Medical History (Reviewed 11/14/24 @ 14:20 by Blanca Kaufman PRODUCTION SUPPORT ENGINEER, PRODUCTION SUPPORT ENGINEER-C) Dyspnea on exertion Shortness of breath Paroxysmal atrial fibrillation Non-rheumatic aortic stenosis Essential (primary) hypertension Sick sinus syndrome SA node dysfunction Diabetes mellitus, type II HLD (hyperlipide (more content not included)... Normal [facility] 12 Lead EKGon 11-03-2024 12 Lead EKG [facility] [address] [place] [address] 12 Lead EKG 11/03/24 1049 MR#: [id number] Acct: [id number] Name: CLARI STEPHENS Rep #: [id number] : 1950 74 From: Rubio Blanc MD [...] Abnormal ECG Confirmed by RUBIO BLANC MD ([id number]), news assignment editor SALOMÓN KAUFMAN ([id number]) on 11/04/2024 9:34:47 AM Referred By: Confirmed By: RUBIO BLANC MD 11/04/24 0934 Date Rubio Blanc MD CC: Dr. Jani Hale, DO; Angela Manjarrez MD Signed Normal [facility] Absolute lymphocyte countOrd ered By: Jani Hale on 11-03-2024 Lymphocytes Auto (Unsp spec) [#/Vol] 1.90 10*3/uL 0.83-4.51 [facility] Absolute neutrophil countOrd ered By: Jani Hale on 11-03-2024 Neutrophils (Bld) [#/Vol] 5.5 10*3/uL 2.0-7.7 [facility] Anion gap in Serum or Plasma Ordered By: Jani Hale on 11-03-2024 Anion gap [Moles/Vol] 12 mmol/L 5-15 [facility] Automated lymphocyte count a s percentage of total leukocytesOrdered By: Jani Hale on 11-03-2024 Lymphocytes/100 WBC Auto (Unsp spec) 22.4 % 19-41 [facility] BUN/creatinine ratioOrdered By: Jani Hale on 11-03-2024 Urea nitrogen/Creatinine [Mass ratio] 21.5 mg/mg High 10-20 [facility] Basic Metabolic Profile (BMP )on 11-03-2024 BUN/CRE 21.5 RATIO High 10-20 [facility] Comment on above: Performed By: #### L 501.9985, L501.9520, L500.4100, L500.4050, L100.0100 #### [facility] [address] [place], [address] Calcium [Mass/Vol] 10.4 mg/dL Normal 7.6-11.0 [facility] Comment on above: Performed By: #### L 501.9985, L501.9520, L500.4100, L500.4050, L100.0100 #### [facility] [address] [place], [address] Chloride [Moles/Vol] 111 mmol/L High 98-108 [facility] Comment on above: Performed By: #### L 501.9985, L501.9520, L500.4100, L500.4050, L100.0100 #### [facility] [address] [place], [address] CO2 [Moles/Vol] 18.6 mmol/L Low 21.0-32.0 [facility] Comment on above: Performed By: #### L 501.9985, L501.9520, L500.4100, L500.4050, L100.0100 #### [facility] [address] [place], [address] Creatinine [Mass/Vol] 0.98 mg/dL Normal 0.70-1.20 [facility] Comment on above: Performed By: #### L 501.9985, L501.9520, L500.4100, L500.4050, L100.0100 #### [facility] [address] [place], [address] ECRCL 58.58 ml/min Normal 50-250 [facility] Comment on above: Performed By: #### L 501.9985, L501.9520, L500.4100, L500.4050, L100.0100 #### [facility] [address] [place], [address] GAP 12 Normal 5-15 [facility] Comment on above: Performed By: #### L 501.9985, L501.9520, L500.4100, L500.4050, L100.0100 #### [facility] [address] [place], [address] GFR/1.73 sq M.predicted among non-blacks MDRD (S/P/Bld) [Vol rate/Area] 60 mL/min/{1.73_m2} Normal >60 [facility] Comment on above: Result Comment: mL/m in/1.73m2 CKD-EPI Creatinine Equation (2020) Performed By: #### L 501.9985, L501.9520, L500.4100, L500.4050, L100.0100 #### [facility] [address] [place], [address] Glucose [Mass/Vol] 91 mg/dL Normal 70-99 [facility] Comment on above: Performed By: #### L 501.9985, L501.9520, L500.4100, L500.4050, L100.0100 #### [facility] [address] [place], [address] Potassium [Moles/Vol] 4.6 mmol/L Normal 3.3-5.1 [facility] Comment on above: Result Comment: Hemo lysis present, Results??could be affected. ?? Performed By: #### L 501.9985, L501.9520, L500.4100, L500.4050, L100.0100 #### [facility] [address] [place], [address] Sodium [Moles/Vol] 141 mmol/L Normal 133-145 [facility] Comment on above: Performed By: #### L 501.9985, L501.9520, L500.4100, L500.4050, L100.0100 #### [facility] [address] [place], [address] Urea nitrogen [Mass/Vol] 21 mg/dL High 4-19 [facility] Comment on above: Performed By: #### L 501.9985, L501.9520, L500.4100, L500.4050, L100.0100 #### [facility] [address] [place], [address] Basophil percentageOrdered B y: Jani Hale on 11-03-2024 Basophils/100 WBC (Bld) 0.5 % 0-1 [facility] CBC W/Diff, Automatedon 04-0 Absolute Lymph 1.90 X10 3/uL Normal 0.83-4.51 [facility] Comment on above: Performed By: #### L 501.9985, L501.9520, L500.4100, L500.4050, L100.0100 #### [facility] [address] [place], [address] Absolute Neut 5.5 X10 3/uL Normal 2.0-7.7 [facility] Comment on above: Performed By: #### L 501.9985, L501.9520, L500.4100, L500.4050, L100.0100 #### [facility] [address] [place], [address] Basophils/100 WBC (Bld) 0.5 % Normal 0-1 [facility] Comment on above: Performed By: #### L 501.9985, L501.9520, L500.4100, L500.4050, L100.0100 #### [facility] [address] [place], [address] Eosinophils/100 WBC (Bld) 1.9 % Normal 0-5 [facility] Comment on above: Performed By: #### L 501.9985, L501.9520, L500.4100, L500.4050, L100.0100 #### [facility] [address] [place], [address] Erythrocyte distribution width (RBC) [Ratio] 16.5 % High 11.6-14.6 [facility] Comment on above: Performed By: #### L 501.9985, L501.9520, L500.4100, L500.4050, L100.0100 #### [facility] [address] [place], [address] Hematocrit (Bld) [Volume fraction] 37.3 % Normal 37-47 [facility] Comment on above: Performed By: #### L 501.9985, L501.9520, L500.4100, L500.4050, L100.0100 #### [facility] [address] [place], [address] Hemoglobin (Bld) [Mass/Vol] 11.8 g/dL Low 12.0-15.0 [facility] Comment on above: Performed By: #### L 501.9985, L501.9520, L500.4100, L500.4050, L100.0100 #### [facility] [address] [place], [address] IG% 0.400 Normal 0.0-0.9 [facility] Comment on above: Result Comment: IG% - Immature Granulocytes (promyelocytes, myelocytes and metamyelocytes) > 1% indicates that a LEFT SHIFT is Present. Performed By: #### L 501.9985, L501.9520, L500.4100, L500.4050, L100.0100 #### [facility] [address] [facility] [place], [address] Lymphocytes/100 WBC (Bld) 22.4 % Normal 19-41 [facility] Comment on above: Performed By: #### L 501.9985, L501.9520, L500.4100, L500.4050, L100.0100 #### [facility] [facility] [address], [address] MCH (RBC) [Entitic mass] 29.1 pg Normal 27.0-32.0 [facility] Comment on above: Performed By: #### L 501.9985, L501.9520, L500.4100, L500.4050, L100.0100 #### [facility] [address] [place], [address] MCHC (RBC) [Mass/Vol] 31.6 g/dL Low 32-36 [facility] Comment on above: Performed By: #### L 501.9985, L501.9520, L500.4100, L500.4050, L100.0100 #### [facility] [address] [place], [address] MCV (RBC) [Entitic vol] 92.1 fL Normal 81-99 [facility] Comment on above: Performed By: #### L 501.9985, L501.9520, L500.4100, L500.4050, L100.0100 #### [facility] [address] [place], [address] Monocytes/100 WBC (Bld) 10.1 % High 0-10 [facility] Comment on above: Performed By: #### L 501.9985, L501.9520, L500.4100, L500.4050, L100.0100 #### [facility] [address] [place], [address] Neutrophils/100 WBC (Bld) 64.7 % Normal 47-70 [facility] Comment on above: Performed By: #### L 501.9985, L501.9520, L500.4100, L500.4050, L100.0100 #### [facility] [address] [place], [address] Nucleated RBC (Bld) [#/Vol] 0 10*3/uL Normal 0-5 [facility] Comment on above: Performed By: #### L 501.9985, L501.9520, L500.4100, L500.4050, L100.0100 #### [facility] [address] [place], [address] Platelet mean volume (Bld) [Entitic vol] 11.3 fL Normal 6.2-12.0 [facility] Comment on above: Performed By: #### L 501.9985, L501.9520, L500.4100, L500.4050, L100.0100 #### [facility] [address] [place], [address] Platelets (Bld) [#/Vol] 154 10*3/uL Normal 150-450 [facility] Comment on above: Performed By: #### L 501.9985, L501.9520, L500.4100, L500.4050, L100.0100 #### [facility] [address], [address] RBC (Bld) [#/Vol] 4.05 10*6/uL Low 4.2-5.4 [facility] Comment on above: Performed By: #### L 501.9985, L501.9520, L500.4100, L500.4050, L100.0100 #### [facility] [address] [place], [address] RDW SD 55.5 fl High 35.1-43.9 [facility] Comment on above: Performed By: #### L 501.9985, L501.9520, L500.4100, L500.4050, L100.0100 #### [facility] [address] [place], [address] WBC (Bld) [#/Vol] 8.5 10*3/uL Normal 4.4-11.0 [facility] Comment on above: Performed By: #### L 501.9985, L501.9520, L500.4100, L500.4050, L100.0100 #### [facility] [address] [place], [address] Carbon dioxide, total [Moles /volume] in Central venous bloodOrdered By: Jani Hale on 11-03-2024 CO2 [Moles/Vol] 18.6 mmol/L Low 21.0-32.0 [facility] Chest 1 View (Portable)on Chest 1 View (Portable) [facility] Imaging Services [address] [address] Chest 1 View (Portable) MR#: [id number] Acct: [id number] Name: CLARI STEPHENS Rep #: [id number] : 1950 F 74 From: Mike rivera MD PCP: Angela Manjarrez MD Status: REG ER Study: Chest 1 View (Portable) Date of Exam: 11/03/24 Exam# [id number] Ordering Dr: Jani Hale DO PROCEDURE: CHEST [...] (Portable) IMPRESSION: No Acute Findings. Reading Location: [place] [address] CC: Dr. Jani Hale DO; Angela Manjarrez MD [facility] Manager: Signed Normal [facility] Chloride assayOrdered By: Michoacano Hale on 11-03-2024 Chloride [Moles/Vol] 111 mmol/L High 98-108 [facility] Emergency Department Summary on 11-03-2024 Emergency Department Summary [facility] Medical Records Department [address] [place] [address] Emergency Department Summary 11/03/24 MR#: [id number] Acct: [id number] Name: CLARI STEPHENS Rep #: [id number] : 1950 74 From: Jani Mejia PCP: [...] is placed to becoming bradycardic followed by States she has had 4 different episodes Jayashree. Since October she called her PCP had a Holter monitor for 24 hours last week. The reason why denies cough. Denies recent vomiting or diarrhea. They reported there was runs of heart rate going fast was told to monitor. Occasional spinning which has resolved history of vertigo. Prior similar symptoms: Yes PFSH PFSH Medical History Dyspnea on exertion Shortness of [...] ROS ED (more content not included)... Normal [facility] Eosinophil percentageOrdered By: Jani Hale on 11-03-2024 Eosinophils/100 WBC (Bld) 1.9 % 0-5 [facility] Erythrocyte distribution wid th (RBC) [Ratio]Ordered By: Jani Hale on 11-03-2024 Erythrocyte distribution width (RBC) [Entitic vol] 55.5 fL High 35.1-43.9 [facility] Erythrocyte distribution wid th ratioOrdered By: Jani Hale on 11-03-2024 Erythrocyte distribution width (RBC) [Ratio] 16.5 % High 11.6-14.6 [facility] Erythrocyte distribution wid th standard deviationOrdered By: Jani Hale on 11-03-2024 Erythrocyte distribution width (RBC) [Ratio] 55.5 fl High 35.1-43.9 [facility] Estimation of creatinine davina aranceOrdered By: Jani Hale on 11-03-2024 Estimated Creatinine Clearance Calc 58.58 ml/min 50-250 [facility] GFR/1.73 sq M.predicted raul g non-blacks MDRD (S/P/Bld) [Vol rate/Area]Ordered By: Jani Hale on 11-03-2024 Estimated GFR (MDRD) Non-Af Amer 60 >60 [facility] Comment on above: mL/min/1.73m2 CKD-EP I Creatinine Equation (2020) Glomerular filtration rate ( GFR) estimation/1.73 sq m using serum, plasma, or whole bOrdered By: Jani Hale on 11-03-2024 GFR/1.73 sq M.predicted among non-blacks MDRD (S/P/Bld) [Vol rate/Area] 60 mL/min/{1.73_m2} >60 [facility] Comment on above: mL/min/1.73m2 CKD-EP I Creatinine Equation (2020) Hematocrit Auto (Bld) [Volum e fraction]Ordered By: Jani Hale on 11-03-2024 Hematocrit (Bld) [Volume fraction] 37.3 % 37-47 [facility] Hemoglobin measurementOrdere d By: Jani Hale on 11-03-2024 Hemoglobin (Bld) [Mass/Vol] 11.8 g/dL Low 12.0-15.0 [facility] Immature granulocytes/100 WB C Auto (Bld)Ordered By: Jani Hale on 11-03-2024 Immature granulocytes/100 WBC (Bld) 0.400 % 0.0-0.9 [facility] Comment on above: IG% - Immature Granu locytes (promyelocytes, myelocytes and metamyelocytes) > 1% indicates that a LEFT SHIFT is Present. Lymphocytes Auto (Unsp spec) [#/Vol]Ordered By: Jani Hale on 11-03-2024 Lymphocytes (Bld) [#/Vol] 1.90 10*3/uL 0.83-4.51 [facility] Lymphocytes/100 WBC Auto (Un sp spec)Ordered By: Jani Hale on 11-03-2024 Lymphocytes/100 WBC (Bld) 22.4 % 19-41 [facility] MCV (mean corpuscular volume ) determinationOrdered By: Jani Hale on 11-03-2024 MCV (RBC) [Entitic vol] 92.1 fL 81-99 [facility] Magnesiumon 11-03-2024 Magnesium [Mass/Vol] 2.2 mg/dL Normal 1.5-2.2 [facility] Comment on above: Performed By: #### L 501.9985, L501.9520, L500.4100, L500.4050, L100.0100 #### [facility] [address] [place], [place] [address] [place], [address] Magnesium (Unsp spec) [Mass/ Vol]Ordered By: Jani Hale on 11-03-2024 Magnesium [Mass/Vol] 2.2 mg/dL 1.5-2.2 [facility] Magnesium measurement (mass/ volume)Ordered By: Jani Hale on 11-03-2024 Magnesium (Unsp spec) [Mass/Vol] 2.2 mg/dL 1.5-2.2 [facility] Mean corpuscular hemoglobin (MCH) determinationOrdered By: Jani Hale on 11-03-2024 MCH (RBC) [Entitic mass] 29.1 pg 27.0-32.0 [facility] Mean corpuscular hemoglobin concentration (MCHC) determinationOrdered By: Jani Hale on 11-03-2024 MCHC (RBC) [Mass/Vol] 31.6 g/dL Low 32-36 [facility] Mean platelet volume determi nationOrdered By: Jani Hale on 11-03-2024 Platelet mean volume (Bld) [Entitic vol] 11.3 fL 6.2-12.0 [facility] Monocyte percentageOrdered B y: Jani Hale on 11-03-2024 Monocytes/100 WBC (Bld) 10.1 % High 0-10 [facility] Neutrophil percentageOrdered By: Jani Hale on 11-03-2024 Neutrophils/100 WBC (Bld) 64.7 % 47-70 [facility] Nucleated red blood cell per centageOrdered By: Jani Hale on 11-03-2024 Nucleated RBC/100 WBC (Bld) [Ratio] 0 % 0-5 [facility] Platelet countOrdered By: Michoacano Hale on 11-03-2024 Platelets (Bld) [#/Vol] 154 10*3/uL 150-450 [facility] Potassium (Unsp spec) [Mass/ Vol]Ordered By: Jani Hale on 11-03-2024 Potassium [Moles/Vol] 4.6 mmol/L 3.3-5.1 [facility] Comment on above: Hemolysis present, R esults could be affected. Potassium measurement (mass/ volume)Ordered By: Jani Hale on 11-03-2024 Potassium (Unsp spec) [Mass/Vol] 4.6 mmol/L 3.3-5.1 [facility] Comment on above: Hemolysis present, R esults could be affected. RBC Auto (Bld) [#/Vol]Ordere d By: Jani Hale on 11-03-2024 RBC (Bld) [#/Vol] 4.05 10*6/uL Low 4.2-5.4 [facility] Serum creatinine measurement (mass/volume)Ordered By: Jani Hale on 11-03-2024 Creatinine [Mass/Vol] 0.98 mg/dL 0.70-1.20 [facility] Serum glucose measurement (m ass/volume)Ordered By: Jani Hale on 11-03-2024 Glucose [Mass/Vol] 91 mg/dL 70-99 [facility] Serum or plasma calcium jia urement (mass/volume)Ordered By: Jani Hale on 11-03-2024 Calcium [Mass/Vol] 10.4 mg/dL 7.6-11.0 [facility] Serum or plasma urea nitroge n measurement (mass/volume)Ordered By: Jani Hale on 11-03-2024 Urea nitrogen [Mass/Vol] 21 mg/dL High 4-19 [facility] Sodium levelOrdered By: Jani Hale on 11-03-2024 Sodium [Moles/Vol] 141 mmol/L 133-145 [facility] White blood cell (WBC) count Ordered By: Jani Hale on 11-03-2024 WBC (Bld) [#/Vol] 8.5 10*3/uL 4.4-11.0 [facility] Absolute lymphocyte countOrd ered By: Angela Manjarrez on 08-25-2024 Lymphocytes Auto (Unsp spec) [#/Vol] 2.14 10*3/uL 0.83-4.51 [facility] Absolute neutrophil countOrd ered By: Angela Manjarrez on 08-25-2024 Neutrophils (Bld) [#/Vol] 3.9 10*3/uL 2.0-7.7 [facility] Albumin to globulin ratioOrd ered By: Angela Manjarrez on 08-25-2024 Albumin/Globulin [Mass ratio] 0.9 {ratio} 0.9-2.4 [facility] Automated lymphocyte count a s percentage of total leukocytesOrdered By: Angela Manjarrez on 08-25-2024 Lymphocytes/100 WBC Auto (Unsp spec) 30.9 % 19-41 [facility] Basophil percentageOrdered B y: Angela Manjarrez on 08-25-2024 Basophils/100 WBC (Bld) 0.7 % 0-1 [facility] Bilirubin, totalOrdered By: Angela Manjarrez on 08-25-2024 Bilirubin [Mass/Vol] 0.40 mg/dL 0.20-1.00 [facility] Comment on above: For patients on eltr ombopag therapy, use of Dimension Ryde TBIL is not recommended. Blood urea nitrogen (BUN)/cr eatinine ratioOrdered By: Angela Manjarrez on 08-25-2024 Urea nitrogen/Creatinine [Mass ratio] 19.5 mg/mg 10-20 [facility] CBC W/Diff, Automatedon 08-04 Absolute Lymph 2.14 X10 3/uL Normal 0.83-4.51 [facility] Comment on above: Order Comment: 114 Performed By: #### L 501.9985, L501.9520, L500.4100, L500.4050, L100.0100 #### [facility] [address] [place], [address] Absolute Neut 3.9 X10 3/uL Normal 2.0-7.7 [facility] Comment on above: Order Comment: 114 Performed By: #### L 501.9985, L501.9520, L500.4100, L500.4050, L100.0100 #### [facility] [address] [place], [address] Basophils/100 WBC (Bld) 0.7 % Normal 0-1 [facility] Comment on above: Order Comment: 114 Performed By: #### L 501.9985, L501.9520, L500.4100, L500.4050, L100.0100 #### [facility] [address] [place], [address] Eosinophils/100 WBC (Bld) 3.2 % Normal 0-5 [facility] Comment on above: Order Comment: 114 Performed By: #### L 501.9985, L501.9520, L500.4100, L500.4050, L100.0100 #### [facility] [address] [place], [address] Erythrocyte distribution width (RBC) [Ratio] 15.5 % High 11.6-14.6 [facility] Comment on above: Order Comment: 114 Performed By: #### L 501.9985, L501.9520, L500.4100, L500.4050, L100.0100 #### [facility] [address] [place], [address] Hematocrit (Bld) [Volume fraction] 36.9 % Low 37-47 [facility] Comment on above: Order Comment: 114 Performed By: #### L 501.9985, L501.9520, L500.4100, L500.4050, L100.0100 #### [facility] [address] [place], [address] Hemoglobin (Bld) [Mass/Vol] 11.3 g/dL Low 12.0-15.0 [facility] Comment on above: Order Comment: 114 Performed By: #### L 501.9985, L501.9520, L500.4100, L500.4050, L100.0100 #### [facility] [address] [place], [address] IG% 0.400 Normal 0.0-0.9 [facility] Comment on above: Order Comment: 114 Result Comment: IG% - Immature Granulocytes (promyelocytes, myelocytes and metamyelocytes) > 1% indicates that a LEFT SHIFT is Present. Performed By: #### L 501.9985, L501.9520, L500.4100, L500.4050, L100.0100 #### [facility] [address] [place], [address] Lymphocytes/100 WBC (Bld) 30.9 % Normal 19-41 [facility] Comment on above: Order Comment: 114 Performed By: #### L 501.9985, L501.9520, L500.4100, L500.4050, L100.0100 #### [facility] [address] [place], [address] MCH (RBC) [Entitic mass] 28.3 pg Normal 27.0-32.0 [facility] Comment on above: Order Comment: 114 Performed By: #### L 501.9985, L501.9520, L500.4100, L500.4050, L100.0100 #### [facility] [address] [place], [address] MCHC (RBC) [Mass/Vol] 30.6 g/dL Low 32-36 [facility] Comment on above: Order Comment: 114 Performed By: #### L 501.9985, L501.9520, L500.4100, L500.4050, L100.0100 #### [facility] [address] [place], [address] MCV (RBC) [Entitic vol] 92.3 fL Normal 81-99 [facility] Comment on above: Order Comment: 114 Performed By: #### L 501.9985, L501.9520, L500.4100, L500.4050, L100.0100 #### [facility] [address] [place], [address] Monocytes/100 WBC (Bld) 8.4 % Normal 0-10 [facility] Comment on above: Order Comment: 114 Performed By: #### L 501.9985, L501.9520, L500.4100, L500.4050, L100.0100 #### [facility] [address] [place], [address] Neutrophils/100 WBC (Bld) 56.4 % Normal 47-70 [facility] Comment on above: Order Comment: 114 Performed By: #### L 501.9985, L501.9520, L500.4100, L500.4050, L100.0100 #### [facility] [address] [place], [address] Nucleated RBC (Bld) [#/Vol] 0 10*3/uL Normal 0-5 [facility] Comment on above: Order Comment: 114 Performed By: #### L 501.9985, L501.9520, L500.4100, L500.4050, L100.0100 #### [facility] [address] [place], [address] Platelet mean volume (Bld) [Entitic vol] 11.8 fL Normal 6.2-12.0 [facility] Comment on above: Order Comment: 114 Performed By: #### L 501.9985, L501.9520, L500.4100, L500.4050, L100.0100 #### [facility] [address] [place], [address] Platelets (Bld) [#/Vol] 166 10*3/uL Normal 150-450 [facility] Comment on above: Order Comment: 114 Performed By: #### L 501.9985, L501.9520, L500.4100, L500.4050, L100.0100 #### [facility] [address] [place], [address] RBC (Bld) [#/Vol] 4.00 10*6/uL Low 4.2-5.4 [facility] Comment on above: Order Comment: 114 Performed By: #### L 501.9985, L501.9520, L500.4100, L500.4050, L100.0100 #### [facility] [address] [place], [address] RDW SD 52.6 fl High 35.1-43.9 [facility] Comment on above: Order Comment: 114 Performed By: #### L 501.9985, L501.9520, L500.4100, L500.4050, L100.0100 #### [facility] [address] [place], [address] WBC (Bld) [#/Vol] 6.9 10*3/uL Normal 4.4-11.0 [facility] Comment on above: Order Comment: 114 Performed By: #### L 501.9985, L501.9520, L500.4100, L500.4050, L100.0100 #### [facility] [address] [place], [address] Carbon dioxide measurementOr dered By: Angela Manjarrez on 08-25-2024 CO2 [Moles/Vol] 22.0 mmol/L 21.0-32.0 [facility] Chloride measurementOrdered By: Angela Manjarrez on 08-25-2024 Chloride [Moles/Vol] 113 mmol/L High 98-107 [facility] Comprehensive Metabolic Prof ilon 08-25-2024 Albumin [Mass/Vol] 3.0 g/dL Low 3.2-5.0 [facility] Comment on above: Order Comment: 114 Performed By: #### L 501.9985, L501.9520, L500.4100, L500.4050, L100.0100 #### [facility] [address] [place], [address] Albumin/Globulin [Mass ratio] 0.9 {ratio} Normal 0.9-2.4 [facility] Comment on above: Order Comment: 114 Performed By: #### L 501.9985, L501.9520, L500.4100, L500.4050, L100.0100 #### [facility] [address] [place], [address] ALK P 99 U/L Normal 45-117 [facility] Comment on above: Order Comment: 114 Performed By: #### L 501.9985, L501.9520, L500.4100, L500.4050, L100.0100 #### [facility] [address] [place], [address] ALT [Catalytic activity/Vol] 26 U/L Normal 13-56 [facility] Comment on above: Order Comment: 114 Performed By: #### L 501.9985, L501.9520, L500.4100, L500.4050, L100.0100 #### [facility] [address] [place], [address] AST [Catalytic activity/Vol] 22 U/L Normal 15-37 [facility] Comment on above: Order Comment: 114 Performed By: #### L 501.9985, L501.9520, L500.4100, L500.4050, L100.0100 #### [facility] [address] [place], [address] Bilirubin [Mass/Vol] 0.40 mg/dL Normal 0.20-1.00 [facility] Comment on above: Order Comment: 114 Result Comment: For patients on eltrombopag therapy, use of Dimension Ryde TBIL is not recommended. Performed By: #### L 501.9985, L501.9520, L500.4100, L500.4050, L100.0100 #### [facility] [address] [place], [address] BUN/CRE 19.5 RATIO Normal 10-20 [facility] Comment on above: Order Comment: 114 Performed By: #### L 501.9985, L501.9520, L500.4100, L500.4050, L100.0100 #### [facility] [address] [place], [address] CA,Total 9.6 mg/dL Normal 8.5-10.1 [facility] Comment on above: Order Comment: 114 Performed By: #### L 501.9985, L501.9520, L500.4100, L500.4050, L100.0100 #### [facility] [address] [place], [address] Chloride [Moles/Vol] 113 mmol/L High 98-107 [facility] Comment on above: Order Comment: 114 Performed By: #### L 501.9985, L501.9520, L500.4100, L500.4050, L100.0100 #### [facility] [address] [place], [address] CO2 [Moles/Vol] 22.0 mmol/L Normal 21.0-32.0 [facility] Comment on above: Order Comment: 114 Performed By: #### L 501.9985, L501.9520, L500.4100, L500.4050, L100.0100 #### [facility] [address] [place], [address] Creatinine [Mass/Vol] 0.97 mg/dL Normal 0.55-1.02 [facility] Comment on above: Order Comment: 114 Result Comment: The validity of the calculated GFR GFRAA in patients over 70 years has not been determined. Clinical correlation is essential. Performed By: #### L 501.9985, L501.9520, L500.4100, L500.4050, L100.0100 #### [facility] [address] [place], [address] EST GFR - AA 71 mL/min Normal >60 [facility] Comment on above: Order Comment: 114 Result Comment: Afri can Ethiopian GFR Calc Performed By: #### L 501.9985, L501.9520, L500.4100, L500.4050, L100.0100 #### [facility] [address] [place], [address] GAP 7 Normal 5-15 [facility] Comment on above: Order Comment: 114 Performed By: #### L 501.9985, L501.9520, L500.4100, L500.4050, L100.0100 #### [facility] [address] [place], [address] GFR/1.73 sq M.predicted among non-blacks MDRD (S/P/Bld) [Vol rate/Area] 59 mL/min/{1.73_m2} Low >60 [facility] Comment on above: Order Comment: 114 Result Comment: Non- GFR Calc Performed By: #### L 501.9985, L501.9520, L500.4100, L500.4050, L100.0100 #### [facility] [address] [place], [address] Globulin (S) [Mass/Vol] 3.4 g/dL Normal 2.2-4.2 [facility] Comment on above: Order Comment: 114 Performed By: #### L 501.9985, L501.9520, L500.4100, L500.4050, L100.0100 #### [facility] [address] [place], [address] Glucose [Mass/Vol] 108 mg/dL High 74-106 [facility] Comment on above: Order Comment: 114 Result Comment: Fast ing Glucose result from 100 to 125 mg/dL suggests IMPAIRED HOMEOSTASIS per A.D.A. criteria. Performed By: #### L 501.9985, L501.9520, L500.4100, L500.4050, L100.0100 #### [facility] [address] [place], [address] Potassium [Moles/Vol] 4.2 mmol/L Normal 3.5-5.1 [facility] Comment on above: Order Comment: 114 Performed By: #### L 501.9985, L501.9520, L500.4100, L500.4050, L100.0100 #### [facility] [address] [place], [address] Sodium [Moles/Vol] 142 mmol/L Normal 136-145 [facility] Comment on above: Order Comment: 114 Performed By: #### L 501.9985, L501.9520, L500.4100, L500.4050, L100.0100 #### [facility] [address] [place], [address] T PROT 6.4 g/dL Normal 6.4-8.2 [facility] Comment on above: Order Comment: 114 Performed By: #### L 501.9985, L501.9520, L500.4100, L500.4050, L100.0100 #### [facility] [address] [place], [address] Urea nitrogen [Mass/Vol] 19 mg/dL High 7-18 [facility] Comment on above: Order Comment: 114 Performed By: #### L 501.9985, L501.9520, L500.4100, L500.4050, L100.0100 #### [facility] [address] [place], [address] Eosinophil percentageOrdered By: Angela Manjarrez on 08-25-2024 Eosinophils/100 WBC (Bld) 3.2 % 0-5 [facility] Erythrocyte distribution wid th ratioOrdered By: Angela Manjarrez on 08-25-2024 Erythrocyte distribution width (RBC) [Ratio] 15.5 % High 11.6-14.6 [facility] Erythrocyte distribution wid th standard deviationOrdered By: Angela Manjarrez on 08-25-2024 Erythrocyte distribution width (RBC) [Entitic vol] 52.6 fL High 35.1-43.9 [facility] Erythrocyte distribution width (RBC) [Ratio] 52.6 fl High 35.1-43.9 [facility] Estimated glomerular filtrat ion rate (GFR) AmericanOrdered By: Angela Manjarrez on 08-25-2024 Estimated GFR (MDRD) Amer 71 mL/min >60 [facility] Comment on above: GFR Calc Glomerular filtration rate ( GFR) estimationOrdered By: Angela Manjarrez on 08-25-2024 Estimated GFR (MDRD) Non-Af Amer 59 mL/min Low >60 [facility] Comment on above: Non- GFR Calc GFR/1.73 sq M.predicted among non-blacks MDRD (S/P/Bld) [Vol rate/Area] 59 mL/min/{1.73_m2} Low >60 [facility] Comment on above: Non- GFR Calc Glucose measurementOrdered B y: Angela Manjarrez on 08-25-2024 Glucose [Mass/Vol] 108 mg/dL High 74-106 [facility] Comment on above: Fasting Glucose resu lt from 100 to 125 mg/dL suggests IMPAIRED HOMEOSTASIS per A.D.A. criteria. Hematocrit Auto (Bld) [Volum e fraction]Ordered By: Angela Manjarrez on 08-25-2024 Hematocrit (Bld) [Volume fraction] 36.9 % Low 37-47 [facility] Hemoglobin A1con 08-25-2024 HbA1c (Bld) [Mass fraction] 6.0 % High 3.8-5.6 [facility] Comment on above: Order Comment: 114 Result Comment: Norm al < 5.7 % Prediabetic 5.7 - 6.4 % Diabetic >or= 6.5 % Please note range changes. Performed By: #### L 501.9985, L501.9520, L500.4100, L500.4050, L100.0100 #### [facility] Laboratory [facility] [place], [address] Hemoglobin A1c percentageOrd ered By: Angela Manjarrez on 08-25-2024 HbA1c (Bld) [Mass fraction] 6.0 % High 3.8-5.6 [facility] Comment on above: Normal < 5.7 % Predi abetic 5.7 - 6.4 % Diabetic >or= 6.5 % Please note range changes. Hemoglobin measurementOrdere d By: Angela Manjarrez on 08-25-2024 Hemoglobin (Bld) [Mass/Vol] 11.3 g/dL Low 12.0-15.0 [facility] High density lipoprotein (HD L) measurementOrdered By: Angela Manjarrez on 08-25-2024 Cholesterol in HDL [Mass/Vol] 48 mg/dL >40 [facility] Comment on above: The drugs N-Acetylcy steine and Metamizole may falsely depress this assay. Reference Range HDL <40 mg/dL Low HDL Cholesterol HDL >or= 60 mg/dL High HDL Cholesterol Immature granulocytes/100 WB C Auto (Bld)Ordered By: Angela Manjarrez on 08-25-2024 Immature granulocytes/100 WBC (Bld) 0.400 % 0.0-0.9 [facility] Comment on above: IG% - Immature Granu locytes (promyelocytes, myelocytes and metamyelocytes) > 1% indicates that a LEFT SHIFT is Present. Laboratory - Chemistry and C hemistry - challengeOrdered By: Angela Manjarrez on 08-25-2024 AST [Catalytic activity/Vol] 22 U/L 15-37 [facility] Lipid Profileon 08-25-2024 Cholesterol [Mass/Vol] 144 mg/dL Normal 200 [facility] Comment on above: Order Comment: 114 Result Comment: <200 mg/dL Desirable 200-240 mg/dL Borderline >240 mg/dL High Risk Performed By: #### L 501.9985, L501.9520, L500.4100, L500.4050, L100.0100 #### [facility] [address] [place], [address] Cholesterol in HDL [Mass/Vol] 48 mg/dL Normal [facility] Comment on above: Order Comment: 114 Result Comment: The drugs N-Acetylcysteine and Metamizole may falsely depress this assay. Reference Range HDL <40 mg/dL Low HDL Cholesterol HDL >or= 60 mg/dL High HDL Cholesterol Performed By: #### L 501.9985, L501.9520, L500.4100, L500.4050, L100.0100 #### [facility] [address] [place], [address] Cholesterol in LDL [Mass/Vol] 72 mg/dL Normal 0-130 [facility] Comment on above: Order Comment: 114 Performed By: #### L 501.9985, L501.9520, L500.4100, L500.4050, L100.0100 #### [facility] [address] [place], [address] Cholesterol in VLDL [Mass/Vol] 24 mg/dL Normal 5-40 [facility] Comment on above: Order Comment: 114 Performed By: #### L 501.9985, L501.9520, L500.4100, L500.4050, L100.0100 #### [facility] [address] [place], [place], [address] Triglyceride [Mass/Vol] 120 mg/dL Normal [facility] Comment on above: Order Comment: 114 Result Comment: The drugs N-Acetylcysteine and Metamizole may falsely depress this assay. Serum Triglycerides Reference Interval Normal <150 mg/dL Borderline high 150 - 199 mg/dL High 200 - 499 mg/dL Very High > or = 500 mg/dL Performed By: #### L 501.9985, L501.9520, L500.4100, L500.4050, L100.0100 #### [facility] [address] [facility] [address] [place], [place], [id number] Low density lipoprotein (LDL ) cholesterol measurementOrdered By: Angela Manjarrez on 08-25-2024 Cholesterol in LDL [Mass/Vol] 72 mg/dL 0-130 [facility] Lymphocytes Auto (Unsp spec) [#/Vol]Ordered By: Angela Manjarrez on 08-25-2024 Lymphocytes (Bld) [#/Vol] 2.14 10*3/uL 0.83-4.51 [facility] Lymphocytes/100 WBC Auto (Un sp spec)Ordered By: Angela Manjarrez on 08-25-2024 Lymphocytes/100 WBC (Bld) 30.9 % 19-41 [facility] MCV (mean corpuscular volume ) determinationOrdered By: Angela Manjarrez on 08-25-2024 MCV (RBC) [Entitic vol] 92.3 fL 81-99 [facility] Mean corpuscular hemoglobin (MCH) determinationOrdered By: Angela Manjarrez on 08-25-2024 MCH (RBC) [Entitic mass] 28.3 pg 27.0-32.0 [facility] Mean corpuscular hemoglobin concentration (MCHC) determinationOrdered By: Angela Manjarrez on 08-25-2024 MCHC (RBC) [Mass/Vol] 30.6 g/dL Low 32-36 [facility] Mean platelet volume determi nationOrdered By: Angela Manjarrez on 08-25-2024 Platelet mean volume (Bld) [Entitic vol] 11.8 fL 6.2-12.0 [facility] Monocyte percentageOrdered B y: Angela Manjarrez on 08-25-2024 Monocytes/100 WBC (Bld) 8.4 % 0-10 [facility] Neutrophil percentageOrdered By: Angela Manjarrez on 08-25-2024 Neutrophils/100 WBC (Bld) 56.4 % 47-70 [facility] Nucleated red blood cell per centageOrdered By: Angela Manjarrez on 08-25-2024 Nucleated RBC/100 WBC (Bld) [Ratio] 0 % 0-5 [facility] Platelet countOrdered By: Vincent Manjarrez on 08-25-2024 Platelets (Bld) [#/Vol] 166 10*3/uL 150-450 [facility] Potassium measurementOrdered By: Angela Manjarrez on 08-25-2024 Potassium [Moles/Vol] 4.2 mmol/L 3.5-5.1 [facility] RBC Auto (Bld) [#/Vol]Ordere d By: Angela Manjarrez on 08-25-2024 RBC (Bld) [#/Vol] 4.00 10*6/uL Low 4.2-5.4 [facility] Serum anion gap measurementO rdered By: Angela Manjarrez on 08-25-2024 Anion gap [Moles/Vol] 7 mmol/L 5-15 [facility] Serum globulin measurementOr dered By: Angela Manjarrez on 08-25-2024 Globulin (S) [Mass/Vol] 3.4 g/dL 2.2-4.2 [facility] Serum or plasma alanine an otransferase (ALT) measurementOrdered By: Angela Manjarrez on 08-25-2024 ALT [Catalytic activity/Vol] 26 U/L 13-56 [facility] Serum or plasma albumin jia urement (mass/volume)Ordered By: Angela Manjarrez on 08-25-2024 Albumin [Mass/Vol] 3.0 g/dL Low 3.2-5.0 [facility] Serum or plasma alkaline michael sphatase measurementOrdered By: Angela Manjarrez on 08-25-2024 ALP [Catalytic activity/Vol] 99 U/L 45-117 [facility] Serum or plasma calcium jia urement (mass/volume)Ordered By: Angela Manjarrez on 08-25-2024 Calcium [Mass/Vol] 9.6 mg/dL 8.5-10.1 [facility] Serum or plasma cholesterol measurement (mass/volume)Ordered By: Angela Manjarrez on 08-25-2024 Cholesterol [Mass/Vol] 144 mg/dL <200 [facility] Comment on above: <200 mg/dL Desirable 200-240 mg/dL Borderline >240 mg/dL High Risk Serum or plasma creatinine m easurement (mass/volume)Ordered By: Angela Manjarrez on 08-25-2024 Creatinine [Mass/Vol] 0.97 mg/dL 0.55-1.02 [facility] Comment on above: The validity of the calculated GFR & GFRAA in patients over 70 years has not been determined. Clinical correlation is essential. Serum or plasma thyroid stim ulating hormone (TSH) measurement (units/volume)Ordered By: Angela Manjarrez on 08-25-2024 TSH Qn 2.660 uIU/mL 0.358-3.740 [facility] Serum or plasma urea nitroge n measurement (mass/volume)Ordered By: Angela Manjarrez on 08-25-2024 Urea nitrogen [Mass/Vol] 19 mg/dL High 7-18 [facility] Sodium levelOrdered By: Brandyn Manjarrez on 08-25-2024 Sodium [Moles/Vol] 142 mmol/L 136-145 [facility] TSH QnOrdered By: Angela hair on 08-25-2024 Thyroid Stimulating Hormone (TSH) 2.660 uIU/mL 0.358-3.740 [facility] Thyroid Stim Hormone (TSH)on 08-25-2024 TSH 2.660 uIU/mL Normal 0.358-3.740 [facility] Comment on above: Order Comment: 114 Performed By: #### L 501.9985, L501.9520, L500.4100, L500.4050, L100.0100 #### [facility] [address] [place], [address] Total proteinOrdered By: Roxi Manjarrez on 08-25-2024 Protein [Mass/Vol] 6.4 g/dL 6.4-8.2 [facility] Triglycerides measurementOrd ered By: Angela Manjarrez on 08-25-2024 Triglyceride [Mass/Vol] 120 mg/dL <199 [facility] Comment on above: The drugs N-Acetylcy steine and Metamizole may falsely depress this assay.Serum Triglycerides Reference Interval Normal <150 mg/dL Borderline high 150 - 199 mg/dL High 200 - 499 mg/dL Very High > or = 500 mg/dL Very low density lipoprotein (VLDL) cholesterol measurementOrdered By: Angela Manjarrez on 08-25-2024 Very low density lipoprotein (VLDL) cholesterol measurement 24 mg/dL 5-40 [facility] VLDL Cholesterol 24 mg/dL 5-40 [facility] White blood cell (WBC) count Ordered By: Angela Manjarrez on 08-25-2024 WBC (Bld) [#/Vol] 6.9 10*3/uL 4.4-11.0 [facility] Echo Completeon 07-11-2024 Echo Complete [facility] [address] [place] [address] Echo Complete 07/11/24 1412 MR#: [id number] Acct: [id number] Name: CLARI STEPHENS Rep #: [id number] : 1950 74 From: Mark Dacosta MD Attending Dr: Dr. Mark Dacosta MD Status: [facility] Ordering Dr: Mark Dacosta MD Date: 07/11/24 Location: [facility] Sex: F C Admitted: Reason For Study: [...] MD Date Dictated: 07/11/24 1412 Date Transcribed: 07/12/24812 [facility] Manager: Signed [facility] 07-08-2024 [facility] Office Visit (PODIWS) CLARI STEPHENS ([id number]) 1950 F Date Time Provider Department 07/08/24 2:20 PM ZAHRA VAZQUEZ During your visit today, we recorded the following information about you: Zahra Vazquez 07/08/2024 2:33 PM Signed Last saw pcp: [...] is to RTC in 3-4 months. MARITZA ChristykeZahra 07/08/2024 2:23 PM Signed [facility] [...] (or decreased sensation in your feet) a graphic art sales representative should always cut your toenails. Be Careful [...] are to (more content not included)... Normal [facility] 12 Lead EKG performed by [facility] on 06-16-2024 12 Lead EKG performed by [facility] [address] [place] [address] 12 Lead EKG performed by [facility] 06/16/24 141 MR#: [id number] Acct: [id number] Name: CLARI STEPHENS Rep #: [id number] : 1950 74 From: Mark Dacosta MD Attending Dr: Dr. Mark Dacosta MD Status: DEP AMB Ordering Dr: Mark Dacosta MD Date: 06/16/24 Location: [facility] Sex: F C Admitted: [facility]/12 Lead EKG performed by [facility] ECG Report Interpretation ------Sinus Bradycardia-Left bundle branch block. ABNORMAL Electronically signed on 08/29/2024 at 11:[address] Mark Dacosta [employer] Version [id number] 08/29/241114 Date Mark Dacosta MD CC: Angela Manjarrez MD Date Dictated: 06/16/241410 Date Transcribed: 06/16/241410 [facility] Manager: PAPITO Signed Normal [facility] Cardiology Visit Reporton Cardiology Visit Report [facility] [address] [place] [address] OFFICE VISIT Date of Service: 06/16/24 MR#: [id number] Acct: [id number] Name: CLARI STEPHENS Rep #: [id number] : 1950 Provider: Dr. 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 Normal [facility] CBC-Complete Blood Cnt No Di ffon 06-07-2024 Erythrocyte distribution width (RBC) [Ratio] 16.1 % High 11.6-14.6 [facility] Comment on above: Order Comment: 114 Performed By: #### L 100.0500 #### [facility] [address] [place], [address] Hematocrit (Bld) [Volume fraction] 36.7 % Low 37-47 [facility] Comment on above: Order Comment: 114 Performed By: #### L 100.0500 #### [facility] [address] [place], [address] Hemoglobin (Bld) [Mass/Vol] 11.2 g/dL Low 12.0-15.0 [facility] Comment on above: Order Comment: 114 Performed By: #### L 100.0500 #### [facility] [address] [place], [address] MCH (RBC) [Entitic mass] 27.9 pg Normal 27.0-32.0 [facility] Comment on above: Order Comment: 114 Performed By: #### L 100.0500 #### [facility] [address] [place], [address] MCHC (RBC) [Mass/Vol] 30.5 g/dL Low 32-36 [facility] Comment on above: Order Comment: 114 Performed By: #### L 100.0500 #### [facility] [address] [place], [address] MCV (RBC) [Entitic vol] 91.5 fL Normal 81-99 [facility] Comment on above: Order Comment: 114 Performed By: #### L 100.0500 #### [facility] [address] [place], [address] Platelet mean volume (Bld) [Entitic vol] 11.7 fL Normal 6.2-12.0 [facility] Comment on above: Order Comment: 114 Performed By: #### L 100.0500 #### [facility] [address] [place], [address] Platelets (Bld) [#/Vol] 169 10*3/uL Normal 150-450 [facility] Comment on above: Order Comment: 114 Performed By: #### L 100.0500 #### [facility] [address] [place], [address] RBC (Bld) [#/Vol] 4.01 10*6/uL Low 4.2-5.4 [facility] Comment on above: Order Comment: 114 Performed By: #### L 100.0500 #### [facility] [address] [place], [address] RDW SD 54.6 fl High 35.1-43.9 [facility] Comment on above: Order Comment: 114 Performed By: #### L 100.0500 #### [facility] [address] [place], [address] WBC (Bld) [#/Vol] 7.1 10*3/uL Normal 4.4-11.0 [facility] Comment on above: Order Comment: 114 Performed By: #### L 100.0500 #### [facility] [address] [place], [address] Comprehensive Metabolic Prof ilon 05-25-2024 Albumin [Mass/Vol] 3.4 g/dL Normal 3.2-5.0 [facility] Comment on above: Order Comment: 114 Performed By: #### L 501.9520, L501.9985, L500.4050, L500.4100 #### [facility] [address] [place], [address] Albumin/Globulin [Mass ratio] 0.9 {ratio} Normal 0.9-2.4 [facility] Comment on above: Order Comment: 114 Performed By: #### L 501.9520, L501.9985, L500.4050, L500.4100 #### [facility] [address] [place], [address] ALK P 124 U/L High 45-117 [facility] Comment on above: Order Comment: 114 Performed By: #### L 501.9520, L501.9985, L500.4050, L500.4100 #### [facility] [address] [place], [address] ALT [Catalytic activity/Vol] 35 U/L Normal 13-56 [facility] Comment on above: Order Comment: 114 Performed By: #### L 501.9520, L501.9985, L500.4050, L500.4100 #### [facility] [address] [place], [address] AST [Catalytic activity/Vol] 27 U/L Normal 15-37 [facility] Comment on above: Order Comment: 114 Performed By: #### L 501.9520, L501.9985, L500.4050, L500.4100 #### [facility] [address] [place], [address] Bilirubin [Mass/Vol] 0.40 mg/dL Normal 0.20-1.00 [facility] Comment on above: Order Comment: 114 Result Comment: For patients on eltrombopag therapy, use of Dimension Ryde TBIL is not recommended. Performed By: #### L 501.9520, L501.9985, L500.4050, L500.4100 #### [facility] [address] [place], [address] BUN/CRE 23.8 RATIO High 10-20 [facility] Comment on above: Order Comment: 114 Performed By: #### L 501.9520, L501.9985, L500.4050, L500.4100 #### [facility] [address] [place], [address] CA,Total 9.9 mg/dL Normal 8.5-10.1 [facility] Comment on above: Order Comment: 114 Performed By: #### L 501.9520, L501.9985, L500.4050, L500.4100 #### [facility] [address] [place], [address] Chloride [Moles/Vol] 115 mmol/L High 98-107 [facility] Comment on above: Order Comment: 114 Performed By: #### L 501.9520, L501.9985, L500.4050, L500.4100 #### [facility] [address] [place], [address] CO2 [Moles/Vol] 21.0 mmol/L Normal 21.0-32.0 [facility] Comment on above: Order Comment: 114 Performed By: #### L 501.9520, L501.9985, L500.4050, L500.4100 #### [facility] [address] [place], [address] Creatinine [Mass/Vol] 1.01 mg/dL Normal 0.55-1.02 [facility] Comment on above: Order Comment: 114 Result Comment: The validity of the calculated GFR GFRAA in patients over 70 years has not been determined. Clinical correlation is essential. Performed By: #### L 501.9520, L501.9985, L500.4050, L500.4100 #### [facility] [address] [place], [address] EST GFR - AA 69 mL/min Normal >60 [facility] Comment on above: Order Comment: 114 Result Comment: Afri can Ethiopian GFR Calc Performed By: #### L 501.9520, L501.9985, L500.4050, L500.4100 #### [facility] [address] [place], [address] GAP 5 Normal 5-15 [facility] Comment on above: Order Comment: 114 Performed By: #### L 501.9520, L501.9985, L500.4050, L500.4100 #### [facility] [address] [place], [address] GFR/1.73 sq M.predicted among non-blacks MDRD (S/P/Bld) [Vol rate/Area] 57 mL/min/{1.73_m2} Low >60 [facility] Comment on above: Order Comment: 114 Result Comment: Non- GFR Calc Performed By: #### L 501.9520, L501.9985, L500.4050, L500.4100 #### [facility] [address] [place], [address] Globulin (S) [Mass/Vol] 3.8 g/dL Normal 2.2-4.2 [facility] Comment on above: Order Comment: 114 Performed By: #### L 501.9520, L501.9985, L500.4050, L500.4100 #### [facility] [address] [place], [address] Glucose [Mass/Vol] 121 mg/dL High 74-106 [facility] Comment on above: Order Comment: 114 Result Comment: Fast ing Glucose result from 100 to 125 mg/dL suggests IMPAIRED HOMEOSTASIS per A.D.A. criteria. Performed By: #### L 501.9520, L501.9985, L500.4050, L500.4100 #### [facility] [address] [place], [address] Potassium [Moles/Vol] 4.5 mmol/L Normal 3.5-5.1 [facility] Comment on above: Order Comment: 114 Performed By: #### L 501.9520, L501.9985, L500.4050, L500.4100 #### [facility] [address] [place], [address] Sodium [Moles/Vol] 141 mmol/L Normal 136-145 [facility] Comment on above: Order Comment: 114 Performed By: #### L 501.9520, L501.9985, L500.4050, L500.4100 #### [facility] [address] [place], [address] T PROT 7.2 g/dL Normal 6.4-8.2 [facility] Comment on above: Order Comment: 114 Performed By: #### L 501.9520, L501.9985, L500.4050, L500.4100 #### [facility] [address] [place], [address] Urea nitrogen [Mass/Vol] 24 mg/dL High 7-18 [facility] Comment on above: Order Comment: 114 Performed By: #### L 501.9520, L501.9985, L500.4050, L500.4100 #### [facility] [address] [place], [address] Hemoglobin A1con 10-23-2024 HbA1c (Bld) [Mass fraction] 6.1 % High 3.8-5.6 [facility] Comment on above: Order Comment: 114 Result Comment: Norm al < 5.7 % Prediabetic 5.7 - 6.4 % Diabetic >or= 6.5 % Please note range changes. Performed By: #### L 501.9520, L501.9985, L500.4050, L500.4100 #### [facility] [address] [place], [address] Lipid Profileon 05-25-2024 Cholesterol [Mass/Vol] 166 mg/dL Normal 200 [facility] Comment on above: Order Comment: 114 Result Comment: <200 mg/dL Desirable 200-240 mg/dL Borderline >240 mg/dL High Risk Performed By: #### L 501.9520, L501.9985, L500.4050, L500.4100 #### [facility] [address] [place], [address] Cholesterol in HDL [Mass/Vol] 54 mg/dL Normal [facility] Comment on above: Order Comment: 114 Result Comment: The drugs N-Acetylcysteine and Metamizole may falsely depress this assay. Reference Range HDL <40 mg/dL Low HDL Cholesterol HDL >or= 60 mg/dL High HDL Cholesterol Performed By: #### L 501.9520, L501.9985, L500.4050, L500.4100 #### [facility] [address] [place], [address] Cholesterol in LDL [Mass/Vol] 77 mg/dL Normal 0-130 [facility] Comment on above: Order Comment: 114 Performed By: #### L 501.9520, L501.9985, L500.4050, L500.4100 #### [facility] [address] [place], [address] Cholesterol in VLDL [Mass/Vol] 35 mg/dL Normal 5-40 [facility] Comment on above: Order Comment: 114 Performed By: #### L 501.9520, L501.9985, L500.4050, L500.4100 #### [facility] [address] [place], [address] Triglyceride [Mass/Vol] 173 mg/dL Normal [facility] Comment on above: Order Comment: 114 Result Comment: The drugs N-Acetylcysteine and Metamizole may falsely depress this assay. Serum Triglycerides Reference Interval Normal <150 mg/dL Borderline high 150 - 199 mg/dL High 200 - 499 mg/dL Very High > or = 500 mg/dL Performed By: #### L [id number], L501.9985, [id number], [id number] #### [facility] [address] [place], [address] Thyroid Stim Hormone (TSH)on 05-25-2024 TSH 3.460 uIU/mL Normal 0.358-3.740 [facility] Comment on above: Order Comment: 114 Performed By: #### L [id number], [id number], [id number], [id number] #### [facility] [address] [place], [address] CNOVon 04-01-2024 CNOV Office Visit (PODIWS) CLARI STEPHENS ([id number]) 1950 F Date Time Provider Department 04/01/24 1:00 PM ZAHRA VAZQUEZ PODIWS During your visit today, we recorded the following information about you: Barbie Neff LPN 04/01/2024 1:34 PM Signed AMB ROOMING INTAKE FLOWSHEET DATA Risk Screening Do you have concerns about personal safety or safety in the home?: No Pain Pain Level: 3 Pain Location: Toe Description: Sore Duration Units: Months Frequency: Intermittent Patient presents with: Left Foot - Established Patient, nail care, New, Ingrown Toenail Right Foot - nail care, New, Ingrown Toenail Barbie Neff LPN Zahra Vazquez 04/01/2024 1:34 PM Signed Initial [...] -orifice 1.1 cm2, 1+ TR, RVSP 31 [place] 02-07: rec repeat Echo in 6 mo [...] once martín (more content not included)... Normal [facility] Whole blood hemoglobin A1c/t otal hemoglobin ratio (mass fraction)Ordered By: Angela Manjarrez on 09-17-2023 HbA1c (Bld) [Mass fraction] 6.2 % 3.8-5.6 [facility] Comment on above: Normal < 5.7 % Predi abetic 5.7 - 6.4 % Diabetic >or= 6.5 % Please note range changes. Basophil percentageOrdered B y: Angela Manjarrez on 08-28-2023 Bilirubin [Mass/Vol] 0.40 mg/dL 0.20-1.00 [facility] Comment on above: For patients on eltr ombopag therapy, use of Dimension Ryde TBIL is not recommended. Chloride [Moles/Vol] 116 mmol/L 98-107 [facility] Cholesterol [Mass/Vol] 146 mg/dL <200 [facility] Comment on above: <200 mg/dL Desirable 200-240 mg/dL Borderline >240 mg/dL High Risk Glucose [Mass/Vol] 111 mg/dL 74-106 [facility] Comment on above: Fasting Glucose resu lt from 100 to 125 mg/dL suggests IMPAIRED HOMEOSTASIS per A.D.A. criteria. Potassium [Moles/Vol] 4.5 mmol/L 3.5-5.1 [facility] Protein [Mass/Vol] 6.4 g/dL 6.4-8.2 [facility] Sodium [Moles/Vol] 143 mmol/L 136-145 [facility] Triglyceride [Mass/Vol] 156 mg/dL <199 [facility] Comment on above: The drugs N-Acetylcy steine and Metamizole may falsely depress this assay.Serum Triglycerides Reference Interval Normal <150 mg/dL Borderline high 150 - 199 mg/dL High 200 - 499 mg/dL Very High > or = 500 mg/dL High density lipoprotein (HD L) measurementOrdered By: Angela Manjarrez on 08-28-2023 Cholesterol in HDL (Body fld) [Mass/Vol] 44 mg/dL >40 [facility] Comment on above: The drugs N-Acetylcy steine and Metamizole may falsely depress this assay. Reference Range HDL <40 mg/dL Low HDL Cholesterol HDL >or= 60 mg/dL High HDL Cholesterol Laboratory - Chemistry and C hemistry - challengeOrdered By: Angela Manjarrez on 08-28-2023 Albumin/Globulin [Mass ratio] 0.9 {ratio} 0.9-2.4 [facility] ALP [Catalytic activity/Vol] 127 U/L 45-117 [facility] ALT [Catalytic activity/Vol] 37 U/L 13-56 [facility] CO2 [Moles/Vol] 24.0 mmol/L 21.0-32.0 [facility] Globulin (S) [Mass/Vol] 3.4 g/dL 2.2-4.2 [facility] Urea nitrogen/Creatinine [Mass ratio] 18.9 mg/mg 10-20 [facility] Low density lipoprotein (LDL ) cholesterol measurementOrdered By: Angela Manjarrez on 08-28-2023 Cholesterol in LDL (Body fld) [Moles/Vol] 71 mg/dL 0-130 [facility] No Panel InformationOrdered By: Angela Manjarrez on 08-28-2023 Estimated GFR (MDRD) Amer 65 mL/min >60 [facility] Comment on above: GFR Calc Estimated GFR (MDRD) Non-Af Amer 54 mL/min >60 [facility] Comment on above: Non- GFR Calc Serum or plasma calcium jia urement (mass/volume)Ordered By: Angela Manjarrez on 08-28-2023 Calcium [Mass/Vol] 9.6 mg/dL 8.5-10.1 [facility] Serum or plasma creatinine m easurement (mass/volume)Ordered By: Angela Manjarrez on 08-28-2023 Creatinine [Mass/Vol] 1.06 mg/dL 0.55-1.02 [facility] Comment on above: The validity of the calculated GFR & GFRAA in patients over 70 years has not been determined. Clinical correlation is essential. Serum or plasma thyroid stim ulating hormone (TSH) measurement (units/volume)Ordered By: Angela Manjarrez on 08-28-2023 TSH Qn 3.69 uIU/mL 0.358-3.74 [facility] Serum or plasma urea nitroge n measurement (mass/volume)Ordered By: Angela Manjarrez on 08-28-2023 Urea nitrogen [Mass/Vol] 20 mg/dL 7-18 [facility] Thin prep Papanicolaou smear with manual screeningOrdered By: Angela Manjarrez on 08-28-2023 Thin prep Papanicolaou smear with manual screening 3.0 g/dL 3.2-5.0 [facility] Thin prep Papanicolaou smear with manual screening 28 U/L 15-37 [facility] Thin prep Papanicolaou smear with manual screening 3 5-15 [facility] Very low density lipoprotein (VLDL) cholesterol measurementOrdered By: Angela Manjarrez on 08-28-2023 Cholesterol in VLDL Calc [Moles/Vol] 31 mg/dL 5-40 [facility] Whole blood hemoglobin A1c/t otal hemoglobin ratio (mass fraction)Ordered By: Angela Manjarrez on 08-28-2023 HbA1c (Bld) [Mass fraction] 6.0 % 3.8-5.6 [facility] Comment on above: Normal < 5.7 % Predi abetic 5.7 - 6.4 % Diabetic >or= 6.5 % Please note range changes. Basophil percentageOrdered B y: Angela Manjarrez on 06-01-2023 Bilirubin [Mass/Vol] 0.40 mg/dL 0.20-1.00 [facility] Comment on above: For patients on eltr ombopag therapy, use of Dimension Ryde TBIL is not recommended. Chloride [Moles/Vol] 115 mmol/L 98-107 [facility] Cholesterol [Mass/Vol] 150 mg/dL <200 [facility] Comment on above: <200 mg/dL Desirable 200-240 mg/dL Borderline >240 mg/dL High Risk Glucose [Mass/Vol] 111 mg/dL 74-106 [facility] Comment on above: Fasting Glucose resu lt from 100 to 125 mg/dL suggests IMPAIRED HOMEOSTASIS per A.D.A. criteria. Potassium [Moles/Vol] 4.2 mmol/L 3.5-5.1 [facility] Protein [Mass/Vol] 6.6 g/dL 6.4-8.2 [facility] Sodium [Moles/Vol] 142 mmol/L 136-145 [facility] Triglyceride [Mass/Vol] 162 mg/dL <199 [facility] Comment on above: The drugs N-Acetylcy steine and Metamizole may falsely depress this assay.Serum Triglycerides Reference Interval Normal <150 mg/dL Borderline high 150 - 199 mg/dL High 200 - 499 mg/dL Very High > or = 500 mg/dL Laboratory - Chemistry and C hemistry - challengeOrdered By: Angela Manjarrez on 06-01-2023 ALP [Catalytic activity/Vol] 155 U/L 45-117 [facility] ALT [Catalytic activity/Vol] 34 U/L 13-56 [facility] CO2 [Moles/Vol] 21.0 mmol/L 21.0-32.0 [facility] Globulin (S) [Mass/Vol] 3.7 g/dL 2.2-4.2 [facility] Urea nitrogen/Creatinine [Mass ratio] 24.1 mg/mg 10-20 [facility] No Panel InformationOrdered By: Angela Manjarrez on 06-01-2023 Estimated GFR (MDRD) Amer 73 mL/min >60 [facility] Comment on above: GFR Calc Estimated GFR (MDRD) Non-Af Amer 61 mL/min >60 [facility] Comment on above: Non- GFR Calc Thyroid Stimulating Hormone (TSH) 4.33 uIU/mL 0.358-3.74 [facility] Serum or plasma albumin jia urement (mass/volume)Ordered By: Angela Manjarrez on 06-01-2023 Albumin [Mass/Vol] 2.9 g/dL 3.2-5.0 [facility] Serum or plasma albumin/glob ulin mass ratioOrdered By: Angela Manjarrez on 06-01-2023 Albumin/Globulin [Mass ratio] 0.8 {ratio} 0.9-2.4 [facility] Serum or plasma calcium jia urement (mass/volume)Ordered By: Angela Manjarrez on 06-01-2023 Calcium [Mass/Vol] 9.5 mg/dL 8.5-10.1 [facility] Serum or plasma cholesterol in HDL measurement (mass/volume)Ordered By: Angela Manjarrez on 06-01-2023 Cholesterol in HDL [Mass/Vol] 44 mg/dL >40 [facility] Comment on above: The drugs N-Acetylcy steine and Metamizole may falsely depress this assay. Reference Range HDL <40 mg/dL Low HDL Cholesterol HDL >or= 60 mg/dL High HDL Cholesterol Serum or plasma cholesterol in VLDL measurement (mass/volume)Ordered By: Angela Manjarrez on 06-01-2023 Cholesterol in VLDL [Mass/Vol] 32 mg/dL 5-40 [facility] Serum or plasma creatinine m easurement (mass/volume)Ordered By: Angela Manjarrez on 06-01-2023 Creatinine [Mass/Vol] 0.95 mg/dL 0.55-1.02 [facility] Comment on above: The validity of the calculated GFR & GFRAA in patients over 70 years has not been determined. Clinical correlation is essential. Serum or plasma low density lipoprotein (LDL) cholesterol measurement (mass/volume)Ordered By: Angela Manjarrez on 06-01-2023 Cholesterol in LDL [Mass/Vol] 74 mg/dL 0-130 [facility] Serum or plasma urea nitroge n measurement (mass/volume)Ordered By: Angela Manjarrez on 06-01-2023 Urea nitrogen [Mass/Vol] 23 mg/dL 7-18 [facility] Thin prep Papanicolaou smear with manual screeningOrdered By: Angela Manjarrez on 06-01-2023 Thin prep Papanicolaou smear with manual screening 22 U/L 15-37 [facility] Thin prep Papanicolaou smear with manual screening 6 5-15 [facility] Whole blood hemoglobin A1c/t otal hemoglobin ratio (mass fraction)Ordered By: Angela Manjarrez on 06-01-2023 HbA1c (Bld) [Mass fraction] 6.0 % 3.8-5.6 [facility] Comment on above: Normal < 5.7 % Predi abetic 5.7 - 6.4 % Diabetic >or= 6.5 % Please note range changes. Basophil percentageOrdered B y: Angela Manjarrez on 03-02-2023 Bilirubin [Mass/Vol] 0.30 mg/dL 0.20-1.00 [facility] Comment on above: For patients on eltr ombopag therapy, use of Dimension Ryde TBIL is not recommended. Chloride [Moles/Vol] 115 mmol/L 98-107 [facility] Cholesterol [Mass/Vol] 138 mg/dL <200 [facility] Comment on above: <200 mg/dL Desirable 200-240 mg/dL Borderline >240 mg/dL High Risk Glucose [Mass/Vol] 103 mg/dL 74-106 [facility] Comment on above: Fasting Glucose resu lt from 100 to 125 mg/dL suggests IMPAIRED HOMEOSTASIS per A.D.A. criteria. Potassium [Moles/Vol] 4.4 mmol/L 3.5-5.1 [facility] Protein [Mass/Vol] 6.3 g/dL 6.4-8.2 [facility] Sodium [Moles/Vol] 141 mmol/L 136-145 [facility] Triglyceride [Mass/Vol] 126 mg/dL <199 [facility] Comment on above: The drugs N-Acetylcy steine and Metamizole may falsely depress this assay.Serum Triglycerides Reference Interval Normal <150 mg/dL Borderline high 150 - 199 mg/dL High 200 - 499 mg/dL Very High > or = 500 mg/dL Laboratory - Chemistry and C hemistry - challengeOrdered By: Angela Manjarrez on 03-02-2023 ALP [Catalytic activity/Vol] 144 U/L 45-117 [facility] ALT [Catalytic activity/Vol] 27 U/L 13-56 [facility] CO2 [Moles/Vol] 23.0 mmol/L 21.0-32.0 [facility] Globulin (S) [Mass/Vol] 3.5 g/dL 2.2-4.2 [facility] Urea nitrogen/Creatinine [Mass ratio] 20.8 mg/mg 10-20 [facility] No Panel InformationOrdered By: Angela Manjarrez on 03-02-2023 Estimated GFR (MDRD) Amer 65 mL/min >60 [facility] Comment on above: GFR Calc Estimated GFR (MDRD) Non-Af Amer 54 mL/min >60 [facility] Comment on above: Non- GFR Calc Thyroid Stimulating Hormone (TSH) 4.73 uIU/mL 0.358-3.74 [facility] Serum or plasma albumin jia urement (mass/volume)Ordered By: Angela Manjarrez on 03-02-2023 Albumin [Mass/Vol] 2.8 g/dL 3.2-5.0 [facility] Serum or plasma albumin/glob ulin mass ratioOrdered By: Angela Manjarrez on 03-02-2023 Albumin/Globulin [Mass ratio] 0.8 {ratio} 0.9-2.4 [facility] Serum or plasma calcium jia urement (mass/volume)Ordered By: Angela Manjarrez on 03-02-2023 Calcium [Mass/Vol] 9.2 mg/dL 8.5-10.1 [facility] Serum or plasma cholesterol in HDL measurement (mass/volume)Ordered By: Angela Manjarrez on 03-02-2023 Cholesterol in HDL [Mass/Vol] 43 mg/dL >40 [facility] Comment on above: The drugs N-Acetylcy steine and Metamizole may falsely depress this assay. Reference Range HDL <40 mg/dL Low HDL Cholesterol HDL >or= 60 mg/dL High HDL Cholesterol Serum or plasma cholesterol in VLDL measurement (mass/volume)Ordered By: Angela Manjarrez on 03-02-2023 Cholesterol in VLDL [Mass/Vol] 25 mg/dL 5-40 [facility] Serum or plasma creatinine m easurement (mass/volume)Ordered By: Angela Manjarrez on 03-02-2023 Creatinine [Mass/Vol] 1.06 mg/dL 0.55-1.02 [facility] Comment on above: The validity of the calculated GFR & GFRAA in patients over 70 years has not been determined. Clinical correlation is essential. Serum or plasma low density lipoprotein (LDL) cholesterol measurement (mass/volume)Ordered By: Angela Manjarrez on 03-02-2023 Cholesterol in LDL [Mass/Vol] 70 mg/dL 0-130 [facility] Serum or plasma urea nitroge n measurement (mass/volume)Ordered By: Angela Manjarrez on 03-02-2023 Urea nitrogen [Mass/Vol] 22 mg/dL 7-18 [facility] Thin prep Papanicolaou smear with manual screeningOrdered By: Angela Manjarrez on 03-02-2023 Thin prep Papanicolaou smear with manual screening 20 U/L 15-37 [facility] Thin prep Papanicolaou smear with manual screening 3 5-15 [facility] Whole blood hemoglobin A1c/t otal hemoglobin ratio (mass fraction)Ordered By: Angela Manjarrez on 03-02-2023 HbA1c (Bld) [Mass fraction] 6.0 % 3.8-5.6 [facility] Comment on above: Normal < 5.7 % Predi abetic 5.7 - 6.4 % Diabetic >or= 6.5 % Please note range changes. No Panel InformationOrdered By: Angela Manjarrez on 01-02-2023 Thyroid Stimulating Hormone (TSH) 3.18 uIU/mL 0.358-3.74 [facility] Basophil percentageOrdered B y: Dr. Manjarrez on 12-02-2022 Bilirubin [Mass/Vol] 0.30 mg/dL 0.20-1.00 [facility] Comment on above: For patients on eltr ombopag therapy, use of Dimension Ryde TBIL is not recommended. Chloride [Moles/Vol] 114 mmol/L 98-107 [facility] Cholesterol [Mass/Vol] 174 mg/dL <200 [facility] Comment on above: <200 mg/dL Desirable 200-240 mg/dL Borderline >240 mg/dL High Risk Glucose [Mass/Vol] 103 mg/dL 74-106 [facility] Comment on above: Fasting Glucose resu lt from 100 to 125 mg/dL suggests IMPAIRED HOMEOSTASIS per A.D.A. criteria. Potassium [Moles/Vol] 4.5 mmol/L 3.5-5.1 [facility] Protein [Mass/Vol] 6.5 g/dL 6.4-8.2 [facility] Sodium [Moles/Vol] 142 mmol/L 136-145 [facility] Triglyceride [Mass/Vol] 128 mg/dL <199 [facility] Comment on above: The drugs N-Acetylcy steine and Metamizole may falsely depress this assay.Serum Triglycerides Reference Interval Normal <150 mg/dL Borderline high 150 - 199 mg/dL High 200 - 499 mg/dL Very High > or = 500 mg/dL Laboratory - Chemistry and C hemistry - challengeOrdered By: Dr. Manjarrez on 12-02-2022 ALP [Catalytic activity/Vol] 141 U/L 45-117 [facility] ALT [Catalytic activity/Vol] 34 U/L 13-56 [facility] CO2 [Moles/Vol] 20.0 mmol/L 21.0-32.0 [facility] Globulin (S) [Mass/Vol] 3.7 g/dL 2.2-4.2 [facility] Urea nitrogen/Creatinine [Mass ratio] 24.3 mg/mg 10-20 [facility] No Panel InformationOrdered By: Dr. Manjarrez on 12-02-2022 Estimated GFR (MDRD) Amer 62 mL/min >60 [facility] Comment on above: GFR Calc Estimated GFR (MDRD) Non-Af Amer 51 mL/min >60 [facility] Comment on above: Non- GFR Calc Thyroid Stimulating Hormone (TSH) 4.84 uIU/mL 0.358-3.74 [facility] Serum or plasma albumin jia urement (mass/volume)Ordered By: Dr. Manjarrez on 12-02-2022 Albumin [Mass/Vol] 2.8 g/dL 3.2-5.0 [facility] Serum or plasma albumin/glob ulin mass ratioOrdered By: Dr. Manjarrez on 12-02-2022 Albumin/Globulin [Mass ratio] 0.8 {ratio} 0.9-2.4 [facility] Serum or plasma calcium jia urement (mass/volume)Ordered By: Dr. Manjarrez on 12-02-2022 Calcium [Mass/Vol] 9.8 mg/dL 8.5-10.1 [facility] Serum or plasma cholesterol in HDL measurement (mass/volume)Ordered By: Dr. Manjarrez on 12-02-2022 Cholesterol in HDL [Mass/Vol] 45 mg/dL >40 [facility] Comment on above: The drugs N-Acetylcy steine and Metamizole may falsely depress this assay. Reference Range HDL <40 mg/dL Low HDL Cholesterol HDL >or= 60 mg/dL High HDL Cholesterol Serum or plasma cholesterol in VLDL measurement (mass/volume)Ordered By: Dr. Manjarrez on 12-02-2022 Cholesterol in VLDL [Mass/Vol] 26 mg/dL 5-40 [facility] Serum or plasma creatinine m easurement (mass/volume)Ordered By: Dr. Manjarrez on 12-02-2022 Creatinine [Mass/Vol] 1.11 mg/dL 0.55-1.02 [facility] Comment on above: The validity of the calculated GFR & GFRAA in patients over 70 years has not been determined. Clinical correlation is essential. Serum or plasma low density lipoprotein (LDL) cholesterol measurement (mass/volume)Ordered By: Dr. Manjarrez on 12-02-2022 Cholesterol in LDL [Mass/Vol] 103 mg/dL 0-130 [facility] Serum or plasma urea nitroge n measurement (mass/volume)Ordered By: Dr. Manjarrez on 12-02-2022 Urea nitrogen [Mass/Vol] 27 mg/dL 7-18 [facility] Thin prep Papanicolaou smear with manual screeningOrdered By: Dr. Manjarrez on 12-02-2022 Thin prep Papanicolaou smear with manual screening 28 U/L 15-37 [facility] Thin prep Papanicolaou smear with manual screening 8 5-15 [facility] Whole blood hemoglobin A1c/t otal hemoglobin ratio (mass fraction)Ordered By: Dr. Manjarrez on 12-02-2022 HbA1c (Bld) [Mass fraction] 6.1 % 3.8-5.6 [facility] Comment on above: Normal < 5.7 % Predi abetic 5.7 - 6.4 % Diabetic >or= 6.5 % Please note range changes. Absolute lymphocyte countOrd ered By: Dr. Manjarrez on 11-12-2022 Lymphocytes Auto (Unsp spec) [#/Vol] 2.34 10*3/uL 0.83-4.51 [facility] Basophil percentageOrdered B y: Dr. Manjarrez on 11-12-2022 Basophils/100 WBC (Bld) 0.6 % 0-1 [facility] Chloride [Moles/Vol] 114 mmol/L 98-107 [facility] Eosinophils/100 WBC (Bld) 1.9 % 0-5 [facility] Glucose [Mass/Vol] 99 mg/dL 74-106 [facility] Neutrophils (Bld) [#/Vol] 4.6 10*3/uL 2.0-7.7 [facility] Neutrophils/100 WBC (Bld) 59.1 % 47-70 [facility] Potassium [Moles/Vol] 4.4 mmol/L 3.5-5.1 [facility] Sodium [Moles/Vol] 141 mmol/L 136-145 [facility] WBC (Bld) [#/Vol] 7.8 10*3/uL 4.4-11.0 [facility] Blood erythrocytes count (nu mber/volume)Ordered By: Dr. Manjarrez on 11-12-2022 RBC (Bld) [#/Vol] 3.79 10*6/uL 4.2-5.4 [facility] Blood hemoglobin measurement (mass/volume)Ordered By: Dr. Manjarrez on 11-12-2022 Hemoglobin (Bld) [Mass/Vol] 11.0 g/dL 12.0-15.0 [facility] Blood lymphocytes/100 leukoc ytesOrdered By: Dr. Manjarrez on 11-12-2022 Lymphocytes/100 WBC (Bld) 29.8 % 19-41 [facility] Blood monocytes/100 leukocyt esOrdered By: Dr. Manjarrez on 11-12-2022 Monocytes/100 WBC (Bld) 8.3 % 0-10 [facility] Blood platelet mean volumeOr dered By: Dr. Manjarrez on 11-12-2022 Platelet mean volume (Bld) [Entitic vol] 11.5 fL 6.2-12.0 [facility] Determination of erythrocyte mean corpuscular volume (MCV)Ordered By: Dr. Manjarrez on 11-12-2022 MCV (RBC) [Entitic vol] 92.6 fL 81-99 [facility] Hematocrit Auto (Bld) [Volum e fraction]Ordered By: Dr. Manjarrez on 11-12-2022 Hematocrit (Bld) [Volume fraction] 35.1 % 37-47 [facility] Laboratory - Chemistry and C hemistry - challengeOrdered By: Dr. Manjarrez on 11-12-2022 CO2 [Moles/Vol] 23.0 mmol/L 21.0-32.0 [facility] Urea nitrogen/Creatinine [Mass ratio] 21.4 mg/mg 10-20 [facility] Laboratory - Hematology and Cell countsOrdered By: Dr. Manjarrez on 11-12-2022 Erythrocyte distribution width (RBC) [Entitic vol] 51.8 fL 35.1-43.9 [facility] Erythrocyte distribution width (RBC) [Ratio] 15.1 % 11.6-14.6 [facility] Immature granulocytes/100 WBC (Bld) 0.300 % 0.0-0.9 [facility] Comment on above: IG% - Immature Granu locytes (promyelocytes, myelocytes and metamyelocytes) > 1% indicates that a LEFT SHIFT is Present. MCH (RBC) [Entitic mass] 29.0 pg 27.0-32.0 [facility] Nucleated RBC/100 WBC (Bld) [Ratio] 0 % 0-5 [facility] MCHC Auto (RBC) [Mass/Vol]Or dered By: Dr. Manjarrez on 11-12-2022 MCHC (RBC) [Mass/Vol] 31.3 g/dL 32-36 [facility] No Panel InformationOrdered By: Dr. Manjarrez on 11-12-2022 Estimated GFR (MDRD) Amer 67 mL/min >60 [facility] Comment on above: GFR Calc Estimated GFR (MDRD) Non-Af Amer 56 mL/min >60 [facility] Comment on above: Non- GFR Calc Platelets bldOrdered By: Dr. Manjarrez on 11-12-2022 Platelets (Bld) [#/Vol] 201 10*3/uL 150-450 [facility] Serum or plasma calcium jia urement (mass/volume)Ordered By: Dr. Manjarrez on 11-12-2022 Calcium [Mass/Vol] 9.7 mg/dL 8.5-10.1 [facility] Serum or plasma creatinine m easurement (mass/volume)Ordered By: Dr. Manjarrez on 11-12-2022 Creatinine [Mass/Vol] 1.03 mg/dL 0.55-1.02 [facility] Comment on above: The validity of the calculated GFR & GFRAA in patients over 70 years has not been determined. Clinical correlation is essential. Serum or plasma urea nitroge n measurement (mass/volume)Ordered By: Dr. Manjarrez on 11-12-2022 Urea nitrogen [Mass/Vol] 22 mg/dL 7-18 [facility] Thin prep Papanicolaou smear with manual screeningOrdered By: Dr. Manjarrez on 11-12-2022 Thin prep Papanicolaou smear with manual screening 4 5-15 [facility] Culture, urineOrdered By: Dr Pelon Manjarrez on 09-30-2022 Bacteria identified Cx Nom (U) Positive [facility] Basophil percentageOrdered B y: Dr. Manjarrez on 09-28-2022 Basophil percentage 0 SEEN /hpf 0-5 [facility] Bilirubin Test strip Ql (U)O rdered By: Dr. Manjarrez on 09-28-2022 Bilirubin Ql (U) Negative Negative [facility] Ketones Test strip Ql (U)Ord ered By: Dr. Manjarrez on 09-28-2022 Ketones Ql (U) Negative Negative [facility] Mucus LM Ql (Urine sed)Order ed By: Dr. Manjarrez on 09-28-2022 Mucus Ql (Urine sed) 0 SEEN /hpf [facility] Nitrite Test strip Ql (U)Ord ered By: Dr. Manjarrez on 09-28-2022 Nitrite Ql (U) Negative Negative [facility] Protein Test strip Ql (U)Ord ered By: Dr. Manjarrez on 09-28-2022 Protein Ql (U) Negative Negative [facility] Squamous epithelial cells de tection in urine sediment by light microscopyOrdered By: Dr. Manjarrez on 09-28-2022 Epithelial cells.squamous LM Ql (Urine sed) 0-5 SEEN /hpf 5-10 [facility] Urine blood detectionOrdered By: Dr. Manjarrez on 09-28-2022 RBC Ql (U) Negative Negative [facility] RBC Ql (U) 0 SEEN /hpf 0-5 [facility] Urine clarityOrdered By: Dr. Manjarrez on 09-28-2022 Clarity (U) Sl. Cloudy Clear [facility] Urine color determinationOrd ered By: Dr. Manjarrez on 09-28-2022 Color (U) Yellow Yellow [facility] Urine glucose detectionOrder ed By: Dr. Manjarrez on 09-28-2022 Glucose Ql (U) Normal mg/dl Normal [facility] Urine leukocyte esterase det ection by dipstickOrdered By: Dr. Manjarrez on 09-28-2022 Leukocyte esterase Test strip Ql (U) Negative Negative [facility] Urine pHOrdered By: Dr. Sudeep silva on 09-28-2022 pH (U) 6.5 [pH] 5.0 - 8.0 [facility] Urine sediment bacteria coun t by microscopy (number/high power field)Ordered By: Dr. Manjarrez on 09-28-2022 Bacteria LM.HPF (Urine sed) [#/Area] 0 /[HPF] None Seen [facility] Urine specific gravity measu rementOrdered By: Dr. Manjarrez on 09-28-2022 Specific gravity (U) [Rel density] 1.010 1.002-1.030 [facility] Urobilinogen Auto test strip Ql (U)Ordered By: Dr. Manjarrez on 09-28-2022 Urobilinogen Ql (U) Normal mg/dl Normal [facility] Basophil percentageOrdered B y: Dr. Manjarrez on 09-03-2022 Bilirubin [Mass/Vol] 0.30 mg/dL 0.20-1.00 [facility] Comment on above: For patients on eltr ombopag therapy, use of Dimension Ryde TBIL is not recommended. Chloride [Moles/Vol] 116 mmol/L 98-107 [facility] Cholesterol [Mass/Vol] 169 mg/dL <200 [facility] Comment on above: <200 mg/dL Desirable 200-240 mg/dL Borderline >240 mg/dL High Risk Glucose [Mass/Vol] 104 mg/dL 74-106 [facility] Comment on above: Fasting Glucose resu lt from 100 to 125 mg/dL suggests IMPAIRED HOMEOSTASIS per A.D.A. criteria. Potassium [Moles/Vol] 4.8 mmol/L 3.5-5.1 [facility] Protein [Mass/Vol] 6.6 g/dL 6.4-8.2 [facility] Sodium [Moles/Vol] 143 mmol/L 136-145 [facility] Triglyceride [Mass/Vol] 144 mg/dL <199 [facility] Comment on above: The drugs N-Acetylcy steine and Metamizole may falsely depress this assay.Serum Triglycerides Reference Interval Normal <150 mg/dL Borderline high 150 - 199 mg/dL High 200 - 499 mg/dL Very High > or = 500 mg/dL Laboratory - Chemistry and C hemistry - challengeOrdered By: Dr. Manjarrez on 09-03-2022 ALP [Catalytic activity/Vol] 127 U/L 45-117 [facility] ALT [Catalytic activity/Vol] 24 U/L 13-56 [facility] CO2 [Moles/Vol] 22.0 mmol/L 21.0-32.0 [facility] Globulin (S) [Mass/Vol] 3.5 g/dL 2.2-4.2 [facility] Urea nitrogen/Creatinine [Mass ratio] 21.3 mg/mg 10-20 [facility] No Panel InformationOrdered By: Dr. Manjarrez on 09-03-2022 Estimated GFR (MDRD) Amer 64 mL/min >60 [facility] Comment on above: GFR Calc Estimated GFR (MDRD) Non-Af Amer 53 mL/min >60 [facility] Comment on above: Non- GFR Calc Thyroid Stimulating Hormone (TSH) 3.71 uIU/mL 0.358-3.74 [facility] Serum or plasma albumin jia urement (mass/volume)Ordered By: Dr. Manjarrez on 09-03-2022 Albumin [Mass/Vol] 3.1 g/dL 3.2-5.0 [facility] Serum or plasma albumin/glob ulin mass ratioOrdered By: Dr. Manjarrez on 09-03-2022 Albumin/Globulin [Mass ratio] 0.9 {ratio} 0.9-2.4 [facility] Serum or plasma calcium jia urement (mass/volume)Ordered By: Dr. Manjarrez on 09-03-2022 Calcium [Mass/Vol] 9.6 mg/dL 8.5-10.1 [facility] Serum or plasma cholesterol in HDL measurement (mass/volume)Ordered By: Dr. Manjarrez on 09-03-2022 Cholesterol in HDL [Mass/Vol] 50 mg/dL >40 [facility] Comment on above: The drugs N-Acetylcy steine and Metamizole may falsely depress this assay. Reference Range HDL <40 mg/dL Low HDL Cholesterol HDL >or= 60 mg/dL High HDL Cholesterol Serum or plasma cholesterol in VLDL measurement (mass/volume)Ordered By: Dr. Manjarrez on 09-03-2022 Cholesterol in VLDL [Mass/Vol] 29 mg/dL 5-40 [facility] Serum or plasma creatinine m easurement (mass/volume)Ordered By: Dr. Manjarrez on 09-03-2022 Creatinine [Mass/Vol] 1.08 mg/dL 0.55-1.02 [facility] Comment on above: The validity of the calculated GFR & GFRAA in patients over 70 years has not been determined. Clinical correlation is essential. Serum or plasma low density lipoprotein (LDL) cholesterol measurement (mass/volume)Ordered By: Dr. Manjarrez on 09-03-2022 Cholesterol in LDL [Mass/Vol] 90 mg/dL 0-130 [facility] Serum or plasma urea nitroge n measurement (mass/volume)Ordered By: Dr. Manjarrez on 09-03-2022 Urea nitrogen [Mass/Vol] 23 mg/dL 7-18 [facility] Thin prep Papanicolaou smear with manual screeningOrdered By: Dr. Manjarrez on 09-03-2022 Thin prep Papanicolaou smear with manual screening 21 U/L 15-37 [facility] Thin prep Papanicolaou smear with manual screening 5 5-15 [facility] Whole blood hemoglobin A1c/t otal hemoglobin ratio (mass fraction)Ordered By: Dr. Manjarrez on 09-03-2022 HbA1c (Bld) [Mass fraction] 6.3 % 3.8-5.6 [facility] Comment on above: Normal < 5.7 % Predi abetic 5.7 - 6.4 % Diabetic >or= 6.5 % Please note range changes. Whole blood hemoglobin A1c/t otal hemoglobin ratio (mass fraction)Ordered By: Dr. Manjarrez on 07-21-2022 HbA1c (Bld) [Mass fraction] 6.4 % 3.8-5.6 [facility] Comment on above: Normal < 5.7 % Predi abetic 5.7 - 6.4 % Diabetic >or= 6.5 % Please note range changes. Absolute lymphocyte counton 03-19-2022 Lymphocytes Auto (Unsp spec) [#/Vol] 2.19 10*3/uL 0.83-4.51 [facility] Work Phone: Basophil percentageon 2021 Basophils/100 WBC (Bld) 0.6 % 0-1 [facility] Work Phone: Bilirubin [Mass/Vol] 0.50 mg/dL 0.20-1.00 [facility] Work Phone: Comment on above: For patients on eltr ombopag therapy, use of Dimension Ryde TBIL is not recommended. Chloride [Moles/Vol] 111 mmol/L 98-107 [facility] Work Phone: Cholesterol [Mass/Vol] 182 mg/dL <200 [facility] Work Phone: Comment on above: <200 mg/dL Desirable 200-240 mg/dL Borderline >240 mg/dL High Risk Eosinophils/100 WBC (Bld) 2.3 % 0-5 [facility] Work Phone: Glucose [Mass/Vol] 131 mg/dL 74-106 [facility] Work Phone: Comment on above: Fasting Glucose resu lt greater than or equal to 126 mg/dL suggests DIABETES MELLITUS per A.D.A. criteria. Neutrophils (Bld) [#/Vol] 4.9 10*3/uL 2.0-7.7 [facility] Work Phone: Neutrophils/100 WBC (Bld) 61.9 % 47-70 [facility] Work Phone: Potassium [Moles/Vol] 4.4 mmol/L 3.5-5.1 [facility] Work Phone: Protein [Mass/Vol] 7.1 g/dL 6.4-8.2 [facility] Work Phone: Sodium [Moles/Vol] 142 mmol/L 136-145 [facility] Work Phone: Triglyceride [Mass/Vol] 141 mg/dL <199 [facility] Work Phone: Comment on above: The drugs N-Acetylcy steine and Metamizole may falsely depress this assay.Serum Triglycerides Reference Interval Normal <150 mg/dL Borderline high 150 - 199 mg/dL High 200 - 499 mg/dL Very High > or = 500 mg/dL WBC (Bld) [#/Vol] 7.9 10*3/uL 4.4-11.0 [facility] Work Phone: Blood erythrocytes count (nu mber/volume)on 03-19-2022 RBC (Bld) [#/Vol] 4.35 10*6/uL 4.2-5.4 [facility] Work Phone: Blood hemoglobin measurement (mass/volume)on 03-19-2022 Hemoglobin (Bld) [Mass/Vol] 12.2 g/dL 12.0-15.0 [facility] Work Phone: Blood lymphocytes/100 leukoc yteson 03-19-2022 Lymphocytes/100 WBC (Bld) 27.7 % 19-41 [facility] Work Phone: Blood monocytes/100 leukocyt eson 03-19-2022 Monocytes/100 WBC (Bld) 7.1 % 0-10 [facility] Work Phone: Blood platelet mean volumeon 03-19-2022 Platelet mean volume (Bld) [Entitic vol] 11.4 fL 6.2-12.0 [facility] Work Phone: Determination of erythrocyte mean corpuscular volume (MCV)on 03-19-2022 MCV (RBC) [Entitic vol] 89.9 fL 81-99 [facility] Work Phone: Hematocrit Auto (Bld) [Volum e fraction]on 03-19-2022 Hematocrit (Bld) [Volume fraction] 39.1 % 37-47 [facility] Work Phone: Laboratory - Chemistry and C hemistry - challengeon 03-19-2022 ALP [Catalytic activity/Vol] 141 U/L 45-117 [facility] Work Phone: ALT [Catalytic activity/Vol] 28 U/L 13-56 [facility] Work Phone: CO2 [Moles/Vol] 24.0 mmol/L 21.0-32.0 [facility] Work Phone: Globulin (S) [Mass/Vol] 3.8 g/dL 2.2-4.2 [facility] Work Phone: Magnesium [Mass/Vol] 2.2 mg/dL 1.6-2.6 [facility] Work Phone: Urea nitrogen/Creatinine [Mass ratio] 27.5 mg/mg 10-20 [facility] Work Phone: Laboratory - Hematology and Cell countson 03-19-2022 Erythrocyte distribution width (RBC) [Entitic vol] 51.2 fL 35.1-43.9 [facility] Work Phone: Erythrocyte distribution width (RBC) [Ratio] 15.5 % 11.6-14.6 [facility] Work Phone: Immature granulocytes/100 WBC (Bld) 0.400 % 0.0-0.9 [facility] Work Phone: Comment on above: IG% - Immature Granu locytes (promyelocytes, myelocytes and metamyelocytes) > 1% indicates that a LEFT SHIFT is Present. MCH (RBC) [Entitic mass] 28.0 pg 27.0-32.0 [facility] Work Phone: Nucleated RBC/100 WBC (Bld) [Ratio] 0 % 0-5 [facility] Work Phone: MCHC Auto (RBC) [Mass/Vol]on 03-19-2022 MCHC (RBC) [Mass/Vol] 31.2 g/dL 32-36 [facility] Work Phone: No Panel Informationon 03-19 Estimated GFR (MDRD) Amer 68 mL/min >60 [facility] Work Phone: Comment on above: GFR Calc Estimated GFR (MDRD) Non-Af Amer 56 mL/min >60 [facility] Work Phone: Comment on above: Non- GFR Calc Vitamin D 25-Hydroxy 63.5 ng/mL [facility] Work Phone: Comment on above: Vitamin D 25(OH) Sta tus Range Deficiency <20 ng/mL (50nmol/L) Insufficiency 20 - 30 ng/mL (50 - 75 nmol/L) Sufficiency 30 - 100 ng/mL (75 - 250 nmol/L) Toxicity >100 ng/mL (>250 nmol/L) Platelets bldon 03-19-2022 Platelets (Bld) [#/Vol] 202 10*3/uL 150-450 [facility] Work Phone: Serum or plasma albumin jia urement (mass/volume)on 03-19-2022 Albumin [Mass/Vol] 3.3 g/dL 3.2-5.0 [facility] Work Phone: Serum or plasma albumin/glob ulin mass ratioon 03-19-2022 Albumin/Globulin [Mass ratio] 0.9 {ratio} 0.9-2.4 [facility] Work Phone: Serum or plasma calcium jia urement (mass/volume)on 03-19-2022 Calcium [Mass/Vol] 10.1 mg/dL 8.5-10.1 [facility] Work Phone: Serum or plasma cholesterol in HDL measurement (mass/volume)on 03-19-2022 Cholesterol in HDL [Mass/Vol] 60 mg/dL >40 [facility] Work Phone: Comment on above: The drugs N-Acetylcy steine and Metamizole may falsely depress this assay. Reference Range HDL <40 mg/dL Low HDL Cholesterol HDL >or= 60 mg/dL High HDL Cholesterol Serum or plasma cholesterol in VLDL measurement (mass/volume)on 03-19-2022 Cholesterol in VLDL [Mass/Vol] 28 mg/dL 5-40 [facility] Work Phone: Serum or plasma creatinine m easurement (mass/volume)on 03-19-2022 Creatinine [Mass/Vol] 1.02 mg/dL 0.55-1.02 [facility] Work Phone: Comment on above: The validity of the calculated GFR & GFRAA in patients over 70 years has not been determined. Clinical correlation is essential. Serum or plasma low density lipoprotein (LDL) cholesterol measurement (mass/volume)on 03-19-2022 Cholesterol in LDL [Mass/Vol] 94 mg/dL 0-130 [facility] Work Phone: Serum or plasma urea nitroge n measurement (mass/volume)on 03-19-2022 Urea nitrogen [Mass/Vol] 28 mg/dL 7-18 [facility] Work Phone: Thin prep Papanicolaou smear with manual screeningon 03-19-2022 Thin prep Papanicolaou smear with manual screening 18 U/L 15-37 [facility] Work Phone: Thin prep Papanicolaou smear with manual screening 7 5-15 [facility] Work Phone: Whole blood hemoglobin A1c/t otal hemoglobin ratio (mass fraction)on 03-19-2022 HbA1c (Bld) [Mass fraction] 6.4 % 3.8-5.6 [facility] Work Phone: Comment on above: Normal < 5.7 % Predi abetic 5.7 - 6.4 % Diabetic >or= 6.5 % Please note range changes. CNPNon 01-23-2022 CNPN Telephone (GYNGRN) CLARI STEPHENS ( ) 1950 F Date Time Provider Department 01/23/22 VIRAL LION During your visit today, we recorded the following information about you: Viral Lion APRN.DEEJAY 01/23/2022 3:19 PM Signed Spoke with Luiza, patient's daughter. I relayed the message for Dr. Miller for patient to start Estrace and Clobetasol cream as directed. Advised Luiza to have Clari use applicator for Estrace cream to help the patency of the vagina. Luiza is not sure patient has an applicator but she will check and let me know. 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] 09/28/2012 06/07/2014 S/P aortic valve replacement [Z95.2] 03/03/2013 Diabetes mellitus without complication (HCC) [E*04/15/2013 Lichen planus [L43.9] 03/09/2014 Paroxysmal atrial fibrillation (HCC) [I48.0] 05/24/2019 Presence of permanent cardiac pacemaker [Z95.0] 01/07/2019 Dizziness [R42] 05/25/2020 Urticaria [L50.9] 10/25/2021 Obesity, Class I, BMI 30-34.9 [E66.9] 01/21/2022 Encounter Status:Closed by VIRAL LION on 01/23/22 [facility] ANES POSTPROC EVALon 022 ANES POSTPROC EVAL HNO ID: [id number] Author: Byron Vargas MD Service: Anesthesiology Author Type: Anesthesiologist Type: Anesthesia Postprocedure Evaluation Filed: 01/21/2022 1:53 PM Note Text: POST ANESTHESIA EVALUATION NOTE : 1950 Procedure Summary Date: 01/21/22 Room / Location: [facility] OR03 / [facility] Anesthesia Start: 849 Anesthesia Stop: 935 [...] January 21, 2022 TIME: 1:52 PM CSN: [id number] [facility] ANES PRE-OPon 01-21-2022 ANES PRE-OP HNO ID: [id number] Author: Byron Vargas MD Service: Anesthesiology Author Type: Anesthesiologist Type: Anesthesia Preprocedure Evaluation Filed: 01/21/2022 8:23 AM Note Text: ANESTHESIOLOGY DAY OF SURGERY NOTE : 1950 Procedure Information Date/Time: 01/21/22 0831 Procedures: EXAM UNDER ANESTHESIA PELVIC / VAGINAL (N/A ) CYSTOSCOPY (N/A Bladder) Location: [facility] OR / [facility] OR Surgeons: Maricel Miller MD Estimated body [...] no. Vitals Value Taken Time BP 184/86 01/21/22752 Pulse 60 01/21/22752 Resp 18 01/21/22752 Temp 36.1 ?C (97 ?F) 01/21/22752 SpO2 98 % 01/21/22752 Facility-Administere d Medications as of 01/21/2022 Medication [...] January 21, 2022 TIME: 8:23 AM CSN: [id number] [facility] BRIEF OP NOTon 01-21-2022 BRIEF OP NOT HNO ID: [id number] Author: Ayden Herrera MD Service: Urogynecology Author Type: Fellow Type: Brief Op Note Filed: 01/21/2022 9:35 AM Note Text: BRIEF OPERATIVE / PROCEDURE NOTE LOG ID: [id number] Surgery/Procedure Date: 01/21/2022 Incision/Procedure Start Time: 9:08 AM Incision Close/Procedure End Time: 9:28 AM Surgeon(s)/Procedura list(s) and Interactive Designer(s): Surgeon(s) and Role: * Maricel Miller MD - Primary * Marleen Jade MD - Resident - Assisting * Ayden Herrera MD - Fellow Physician Interactive Designer: Re Rossi PA-C Procedure(s): Lysis of labial [...] PATIENT NAME: Clari Stephens TIME: 9:34 AM [facility] HISTORY PHYSICALon HISTORY PHYSICAL HNO ID: [id number] Author: Marleen Jdae MD Service: Urogynecology Author Type: Resident Type: [...] DATE: January 21, 2022 TIME: 8:25 AM [facility] NURSING PROGon 01-21-2022 NURSING PROG HNO ID: [id number] Author: Tatiana Concepcion RN Service: Nursing Author Type: Registered Nurse Type: Nursing Progress Note Filed: 01/21/2022 11:00 AM Note Text: 1030 pt ambulates to BR with min assist. Voids QS. 1055 pt voids QS. 1058 d/c'd to home via wheelchair. [facility] OPERATIVE NOon 01-21-2022 OPERATIVE NO HNO ID: [id number] Author: Maricel Miller MD Service: Urogynecology Author Type: Physician Type: Operative Report Filed: 01/28/2022 12:18 PM Note Text: OPERATIVE/PROCEDURE REPORT LOG ID: [id number] Surgery/Procedure Date: 01/21/2022 Incision/Procedure Start Time: 9:08 AM Incision Close/Procedure End Time: 9:28 AM Surgeon(s)/Procedura list(s) and Interactive Designer(s): Surgeon(s) and Role: * Maricel Miller MD - Primary * Marleen Jade MD - Resident - Assisting * Ayden Herrera MD - Fellow Physician Interactive Designer: Re Rossi PA-C Procedure(s): Lysis of labial [...] note above and made any necessary additions/correction s. Maricel Miller MD Staff Physician, Department of Urogynecology [facility] SURGICAL PATHOLOGYon 022 CASE REPORT [facility] Comment on above: Order Comment: Speci men Type: TISSUE SPECIMEN Ordering Facility: [facility] Address: [address] [place] [address] Result Comment: Surg ica Pathology Report Case: [id number] Authorizing Provider: Maricel Miller MD Collected: 01/21/2022 09:11 AM Ordering Location: [facility] Surgery Received: 01/21/2022 10:33 AM Pathologist: Lucio Jung MD, PhD Specimen: VULVA BIOPSY, vulvar adhesion Performed By: #### S #### [facility] CLIA [id number] [address] [place] [address] FINAL DIAGNOSIS [facility] Comment on above: Order Comment: Speci men Type: TISSUE SPECIMEN Ordering Facility: [facility] Address: [address] [place] [address] Result Comment: A. V ulvar, biopsy: - Benign squamous mucosa with mild chronic inflammation. Performed By: #### S #### [facility] CLIA [id number] [address] [place] [address] FINAL PERFORMING LAB [facility] Comment on above: Order Comment: Speci men Type: TISSUE SPECIMEN Ordering Facility: [facility] Address: [address] [place] [address] Result Comment: Diag nostic interpretation performed at [facility], [address] [place], [place] [id number] CLIA# [id number] [employer] Machine Feeder: Howie Sosa M.D. Performed By: #### S #### [facility] CLIA [id number] [address] [place] [address] [place] GROSS DESCRIPTION Normal [facility] Comment on above: Order Comment: Speci men Type: TISSUE SPECIMEN Ordering Facility: [facility] Address: [address] [place] [address] Result Comment: A. V ULVA BIOPSY. Received in formalin on Telfa gauze are two rubbery wrinkled segments of irregular variegated white to gillis slightly rubbery tissue aggregating to 2.0 x 0.5 x 0.3 cm. Totally submitted in one cassette. [place] [address] TTN 01/21/2022 5:11 PM Performed By: #### S #### [facility] CLIA [id number] [address] [place] [address] [place] UA DIP, URINE (POC)on 2021 BILIRUBIN UA (POCT) Negative Negative [facility] CLARITY UA (POCT) Clear [facility] COLOR UA (POCT) Yellow [facility] GLUCOSE UA (POCT) Negative Negative mg/dL [facility] HEMOGLOBIN/BLOOD UA (POCT) Trace-intact Abnormal Negative [facility] KETONE UA (POCT) Negative Negative mg/dL [facility] LEUKOCYTES UA (POCT) Small Abnormal Negative [facility] NITRITE UA (POCT) Negative Negative [facility] PH UA (POCT) 6.5 4.5 - 8.[address] [facility] Protein Ql (U) Trace Abnormal Negative mg/dL [facility] SPECIFIC GRAVITY UA (POCT) 1.020 1.005 - 1.[address] [facility] UROBILINOGEN UA (POCT) 0.2 E.U./dL Tiara l E.U./dL [facility] Echocardiogram, Adult ([facility]OH)o n 10-12-2017 Echocardiogram, Adult ([facility]) Normal Count Includes [facility] ([place]) Vital Signs Date Time Vital Sign Value Performing Clinician Colt meneses 03-16-2025 11:21-0400 Body height 172.[address] Angela Manjarrez MD [facility] 03-16-2025 11:21-0400 Body mass index (BMI) [Ratio] 30.2 kg/m2 Dr. Angela Manjarrez MD [facility] 03-16-2025 11:21-0400 Body weight 90.[address] Angela Manjarrez MD [facility] 03-16-2025 11:21-0400 Diastolic blood pressure 79 mm[Hg] Dr. Angela Manjarrez MD [facility] 03-16-2025 11:21-0400 Heart rate 62 /min Dr. Angela Manjarrez MD [facility] 03-16-2025 11:21-0400 Respiratory rate 18 /min Dr. Angela Manjarrez MD [facility] 03-16-2025 11:21-0400 SaO2% (BldA) [Mass fraction] 96 % Dr. Angela Manjarrez MD [facility] 03-16-2025 11:21-0400 Systolic blood pressure 130 mm[Hg] Dr. Angela Manjarrez MD [facility] 11-14-2024 14:08-0400 Body height 172.[address] Angela Manjarrez MD [facility] 11-14-2024 14:08-0400 Body mass index (BMI) [Ratio] 30.9 kg/m2 Dr. Angela Manjarrez MD [facility] 11-14-2024 14:08-0400 Body weight 92.[address] Angela Manjarrez MD [facility] 11-14-2024 14:08-0400 Diastolic blood pressure 84 mm[Hg] Dr. Angela Manjarrez MD [facility] 11-14-2024 14:08-0400 Heart rate 66 /min Dr. Angela Manjarrez MD [facility] 11-14-2024 14:08-0400 Respiratory rate 20 /min Dr. Angela Manjarrez MD [facility] 11-14-2024 14:08-0400 SaO2% (BldA) [Mass fraction] 97 % Dr. Angela Manjarrez MD [facility] 11-14-2024 14:08-0400 Systolic blood pressure 136 mm[Hg] Dr. Angela Manjarrez MD [facility] 11-03-2024 15:34-0400 Body temperature 98.1 [degF] Dr. Angela Manjarrez MD [facility] 11-03-2024 15:34-0400 Diastolic blood pressure 86 mm[Hg] Dr. Angela Manjarrez MD [facility] 11-03-2024 15:34-0400 Heart rate 96 /min Dr. Angela Manjarrez MD [facility] 11-03-2024 15:34-0400 Respiratory rate 16 /min Dr. Angela Manjarrez MD [facility] 11-03-2024 15:34-0400 SaO2% (BldA) [Mass fraction] 99 % Dr. Angela Manjarrez MD [facility] 11-03-2024 15:34-0400 Systolic blood pressure 142 mm[Hg] Dr. Angela Manjarrez MD [facility] 11-03-2024 10:47-0400 Body height 172.[address] Angela Manjarrez MD [facility] 11-03-2024 10:47-0400 Body mass index (BMI) [Ratio] 31.5 kg/m2 Dr. Angela Manjarrez MD [facility] 11-03-2024 10:47-0400 Body weight 94.[address] Angela Manjarrez MD [facility] 05-20-2023 15:00-0400 Body height 172.[address] Angela Manjarrez [facility] 05-20-2023 15:00-0400 Body mass index (BMI) [Ratio] 30.7 kg/m2 Dr. Angela Manjarrez [facility] [facility] 05-20-2023 15:00-0400 Body weight 91.[address] Angela Manjarrez [facility] 05-20-2023 15:00-0400 Diastolic blood pressure 72 mm[facility]Hg[facility] 15:00-0400 Heart rate 60 /min Dr. Angela Manjarrez [facility] 05-20-2023 15:00-0400 Respiratory rate 18 /[facility] 15:00-0400 SaO2% (BldA) [Mass fraction] 97 % Dr. Miller [facility] 05-20-2023 15:00-0400 Systolic blood pressure 110 mm[Hg] Dr. Miller [facility] 09-26-2022 14:47-0500 Body height 172.[address] Ori Torres Work Phone: [facility] 09-26-2022 14:47-0500 Diastolic blood pressure 79 mm[Hg] Dr. Ori Torres Work Phone: [facility] 09-26-2022 14:47-0500 Heart rate 60 /min Dr. Ori Torres Work Phone: [facility] 09-26-2022 14:47-0500 Systolic blood pressure 114 mm[Hg] Dr. Ori Torres Work Phone: [facility] 03-27-2022 10:10-0400 Body height 172.[address] Davon Calzada Work Phone: [facility] Work Phone: 03-27-2022 10:10-0400 Body mass index (BMI) [Ratio] 29.3 kg/m2 Dr. Ori Torres Work Phone: [facility] 03-27-2022 10:10-0400 Body weight 87.[address] Ori Torres Work Phone: [facility] 03-27-2022 10:10-0400 Respiratory rate 20 /min Dr. Ori Torres Work Phone: [facility] 03-27-2022 10:10-0400 SaO2% (BldA) [Mass fraction] 97 % Dr. Ori Torres Work Phone: [facility] 03-27-2022 10:02-0400 Body mass index (BMI) [Ratio] 28.3 kg/m2 Dr. Davon Calzada Work Phone: [facility] Work Phone: 03-27-2022 10:02-0400 Body weight 84.[address] Davno Calzada Work Phone: [facility] Work Phone: 03-27-2022 10:02-0400 Diastolic blood pressure 81 mm[Hg] Dr. Davon Calzada Work Phone: [facility] Work Phone: 03-27-2022 10:02-0400 Heart rate 71 /min Dr. Davon Calzada Work Phone: [facility] Work Phone: 03-27-2022 10:02-0400 Respiratory rate 18 /min Dr. Davon Calzada Work Phone: [facility] Work Phone: 03-27-2022 10:02-0400 SaO2% (BldA) [Mass fraction] 93 % Dr. Davon Calzada Work Phone: [facility] Work Phone: 03-27-2022 10:02-0400 Systolic blood pressure 130 mm[Hg] Dr. Davon Calzada Work Phone: [facility] Work Phone: 12-25-2021 09:22-0400 Diastolic blood pressure 82 mm[Hg] Indigo Mayfield DENTURE PACKER.DISPLAY COORDINATOR Work Phone: [facility] 12-25-2021 09:22-0400 Systolic blood pressure 136 mm[Hg] Indigo Mayfield DENTURE PACKER.DISPLAY COORDINATOR Work Phone: [facility] 12-16-2021 14:10-0400 Diastolic blood pressure 74 mm[Hg] Davon Calzada MD Work Phone: [facility] 12-16-2021 14:10-0400 Heart rate 60 /min Davon Calzada MD Work Phone: [facility] 12-16-2021 14:10-0400 Systolic blood pressure 114 mm[Hg] Davon Calzada MD Work Phone: [facility] 12-16-2021 14:04-0400 Body temperature 97.3 [degF] Davon Calzada MD Work Phone: [facility] 12-16-2021 14:04-0400 Body weight 80.2 kg Davon Calzada MD Work Phone: [facility] 12-05-2021 13:47-0400 Body weight 80.29 kg Cami Farris APRN.DISPLAY COORDINATOR Work Phone: [facility] 12-05-2021 13:47-0400 Diastolic blood pressure 76 mm[Hg] Cami Farris APRN.DISPLAY COORDINATOR Work Phone: [facility] 12-05-2021 13:47-0400 Systolic blood pressure 140 mm[Hg] Cami Farris APRN.DISPLAY COORDINATOR Work Phone: [facility] Encounters Encounter Date Encounter Type Care Provider Facility Start: 04-06-2025 Non-patient / Non-visit Dr. Mark landin MD -[facility] Start: 04-06-2025 End: 04-06-2025 ambulatory Angelaerick Manjarrez Facility:[facility] Start: 04-06-2025 End: 04-06-2025 Patient encounter procedure Marbella LARESC -Cardiovascular Services Work Phone: Start: 04-06-2025 End: 04-06-2025 ambulatory [facility] Facility:[facility] Start: 03-20-2025 End: 03-20-[address] Angela Manjarrez MD -[facility] Start: 03-20-2025 End: 03-20-[address] Rubio Blanc MD -[facility] Work Phone: Start: 03-16-2025 End: 03-16-2025 Patient encounter procedure Marbella HAMMOND -[facility] Work Phone: Start: 03-16-2025 End: 03-16-[address] Angela Manjarrez MD -[facility] Start: 03-02-2025 End: 03-02-2025 Patient encounter procedure Zahra Vazquez Work Phone: Podiatry Comment on above: Onychomycosis (Prima ry Dx); Onychocryptosis; Pain in toe of left foot; Pain in toe of right foot; Diabetic polyneuropathy associated with type 2 diabetes mellitus (HCC) Start: 03-02-2025 End: 03-02-2025 ambulatory ZAHRA VAZQUEZ Facility:[facility] Start: 02-24-20[facility] Start: 02-24-[address] Angela Manjarrez MD -[facility] Work Phone: Start: 12-19-2024 End: 12-19-[address] Angela Manjarrez MD [facility] Work Phone: Start: 12-19-2024 End: 12-19-[address] Rubio Blanc MD -[facility] Work Phone: Start: 11-25-2024 End: 11-25-[address] Angela Manjarrez MD [facility] Work Phone: Start: 11-25-2024 End: 11-25-[address] Angela Manjarrez MD -[facility] Work Phone: Start: 11-25-2024 End: 11-25-2024 ambulatory Angelaerick Manjarrez Facility:[facility] Start: 11-14-2024 End: 11-14-2024 Patient encounter procedure Blanca HAMMOND -[facility] Work Phone: Start: 11-14-2024 End: 11-14-2024 ambulatory Angela Conradocaroleea Facility:[facility] Start: 11-03-2024 End: 11-03-2024 Emergency department patient visit Dr. Angela Manjarrez MD -Emergency Department Work Phone: Start: 10-21-2024 Non-patient / Non-visit Dr. Nayana RASCON -[facility] Work Phone: Start: 10-21-2024 End: 10-21-[address] Angela Manjarrez MD [facility] Work Phone: Start: 10-21-2024 End: 10-21-2024 Patient encounter procedure Marbella HAMMOND -Pulmonary Services/Neurology Work Phone: Start: 10-21-2024 End: 10-21-2024 ambulatory Angelaerick Manjarrez Facility:[facility] Start: 09-19-2024 End: 09-19-2024 ambulatory Rubio Blanc Facility:[facility] Start: 09-19-2024 End: 09-19-[address] Rubio Blanc MD -[facility] Work Phone: Start: 08-25-2024 End: 08-25-[address] Angela Manjarrez MD -[facility] Work Phone: Start: 08-25-2024 End: 08-25-2024 ambulatory [facility] Josseline OLS Facility:[facility] Start: 07-11-2024 ambulatory Mark Dacosta Facility:[facility] Start: 07-11-2024 Non-patient / Non-visit Dr. Mark landin MD -[facility] Start: 07-11-2024 End: 07-11-[address] Mark Dacosta MD -Cardiovascular Services Work Phone: Start: 07-11-2024 End: 07-11-2024 ambulatory Mark Dacosta Facility:[facility] Start: 07-08-2024 End: 07-11-2024 ambulatory ZAHRA VAZQUEZ Facility:[facility] Start: 07-08-2024 End: 07-08-2024 Patient encounter procedure Zahra Bishopjimenez Work Phone: Podiatry Comment on above: Onychomycosis (Prima ry Dx); Onychocryptosis; Pain in toe of left foot; Pain in toe of right foot; Diabetic polyneuropathy associated with type 2 diabetes mellitus (HCC) Start: 06-20-2024 End: 06-20-2024 ambulatory Rubio Jayashree Facility:[facility] Start: 06-16-2024 End: 06-16-2024 ambulatory Angela Manjarrez Facility:[facility] Start: 06-07-2024 End: 06-07-2024 ambulatory [facility] Facility:[facility] Start: 05-25-2024 End: 05-25-2024 [facility] Start: 04-01-2024 End: 04-01-2024 ambulatory ZAHRA VAZQUEZ Facility:[facility] Start: 04-01-2024 End: 04-01-2024 Patient encounter procedure Zahra Taylor Work Phone: Podiatry Comment on above: Diabetic polyneuropa thy associated with type 2 diabetes mellitus (HCC) (Primary Dx); Onychomycosis; Onychocryptosis; Pain in toe of left foot; Pain in toe of right foot Start: 10-27-2023 ambulatory Audrey Clark LPN [facility] Start: 09-17-2023 End: 09-17-[address] Angela Manjarrez [facility] Work Phone: Start: 09-17-2023 End: 09-17-[address] Angela Manjarrez [facility] Work Phone: Start: 08-28-2023 End: 08-28-[address] Angela Manjarrez [facility] Work Phone: Start: 08-28-2023 End: 08-28-[address] Angela Manjarrez [facility] Work Phone: Start: 06-23-2023 Non-patient / Non-visit Dr. Angela leal [facility] Work Phone: Start: 06-23-2023 Non-patient / Non-visit Dr. Angela leal [facility] Start: 06-23-2023 End: 06-23-[address] [facility] Start: 06-23-2023 End: 06-23-[address] [facility] Work Phone: Start: 06-19-2023 End: 06-19-[address] Angela Manjarrez [facility] Work Phone: Start: 06-01-2023 End: 06-01-[address] Miller [facility] Work Phone: Start: 06-01-2023 End: 06-01-[address] Miller [facility] Work Phone: Start: 05-20-2023 End: 05-20-[address] Angela Campshira [facility] Work Phone: Start: 05-11-2023 ambulatory Sarah Birmingham [facility] Comment on above: Population Health [facility] (ACO BP AND DM) Start: 03-02-2023 End: 03-02-2023 ambulatory [facility] Work Phone: Start: 03-02-2023 End: 03-02-2023 Departed Referred [facility] Work Phone: Start: 03-02-2023 Registered Referred [facility] Work Phone: Start: 01-13-2023 ambulatory Davon clark MD Work Phone: Internal [facility] Start: 01-02-2023 End: 01-02-2023 ambulatory [facility] Work Phone: Start: 01-02-2023 End: 01-02-2023 Departed Referred [facility] Work Phone: Start: 12-02-2022 End: 12-02-2022 ambulatory [facility] Work Phone: Start: 12-02-2022 End: 12-02-2022 Departed Referred [facility] Start: 12-02-2022 Registered Referred [facility] Start: 12-01-2022 End: 12-01-2022 ambulatory [facility] Work Phone: Start: 12-01-2022 End: 12-01-2022 Patient encounter procedure [facility]-Pulmonary Services/Neurology Start: 11-12-2022 End: 11-12-2022 ambulatory [facility] Work Phone: Start: 11-12-2022 End: 11-12-2022 Departed Referred [facility] Start: 11-11-2022 ambulatory Davon clark MD Work Phone: Internal [facility] Start: 09-28-2022 End: 09-28-[address] Ori Torres Work Phone: [facility] Work Phone: Start: 09-28-2022 End: 09-28-[address] Ori Torres Work Phone: [facility] Start: 09-26-2022 End: 09-26-[address] Ori Torres Work Phone: [facility] Start: 09-03-2022 End: 09-03-[address] Ori Torres Work Phone: [facility] Start: 08-27-2022 End: 08-27-[address] Ori Torres Work Phone: [facility] Start: 07-25-2022 End: 07-25-[address] Ori Torres Work Phone: [facility] Start: 07-21-2022 End: 07-21-2022 ambulatory [facility] Work Phone: Start: 07-21-2022 End: 07-21-2022 Departed Referred [facility] Start: 05-14-2022 ambulatory Davon clark MD Work Phone: Internal Medicine [facility] Start: 03-27-2022 End: 03-27-[address] Davon Calzada Work Phone: [facility] Start: 03-19-2022 End: 03-19-[address] Davon Calzada Work Phone: [facility] Work Phone: Start: 03-19-2022 End: 03-19-[address] Davon Calzada Work Phone: [facility] Start: 02-19-2022 End: 02-19-2022 Patient encounter procedure Indigo Mayfield APRN.DISPLAY COORDINATOR Work Phone (unformatted): [phone] [employer] [facility] Comment on above: Post-operative state (Primary Dx); Lichen planus Start: 02-05-2022 End: 02-05-2022 Patient encounter procedure Indigo Mayfield APRN.DISPLAY COORDINATOR Work Phone: GENERAL [employer]CR[employer] [facility] Comment on above: Post-operative state (Primary Dx) Start: 01-23-2022 Telephone encounter Viral Mares Fred martínez DENTURE PACKER.DISPLAY COORDINATOR Work Phone: Urogynecology Comment on above: Patient Update Start: 01-17-2022 Telephone encounter Maricel hensley MD Work Phone: Endocrinology Comment on above: Question Start: 01-14-2022 Telephone encounter Davon jorge MD Work Phone: Internal Medicine [facility] Comment on above: Forms Start: 01-13-2022 End: 01-13-2022 Patient encounter procedure Maricel Miller MD Work Phone: [facility] Comment on above: Lichen planus (Prima ry Dx); Vaginal atrophy; Labia minora agglutination Start: 01-07-2022 Telephone encounter Sveta Eid MD Work Phone: OB/Gynecology Comment on above: UTI Start: 12-25-2021 End: 12-25-2021 Patient encounter procedure Indigo Mayfield APRN.DISPLAY COORDINATOR Work Phone: [facility] Comment on above: Lichen planus (Prima ry Dx); Labia minora agglutination; History of UTI; Vaginal atrophy Start: 12-16-2021 End: 12-16-2021 Patient encounter procedure Davon Calzada MD Work Phone: [facility] [place] Comment on above: Essential hypertensi on (Primary Dx); Diabetes mellitus without complication (HCC); Other hyperlipidemia Start: 12-10-2021 Telephone encounter Cami arriaza APRN.DISPLAY COORDINATOR Work Phone: OB/Gynecology Comment on above: Results; New Medicat ion Start: 12-05-2021 End: 12-05-2021 Patient encounter procedure Cami Farris APRN.DISPLAY COORDINATOR Work Phone: OB/Gynecology Comment on above: Dermatitis of vulva (Primary Dx); Vulvar pruritus; Labia minora agglutination; Lichen planus; Urinary dribbling Start: 12-05-2021 Telephone encounter Cami arriaza APRN.DISPLAY COORDINATOR Work Phone: OB/Gynecology Comment on above: Medication Question Start: 11-04-2021 Telephone encounter Davon jorge MD Work Phone: [facility] [place] Comment on above: Medication Problem Start: 11-02-2021 ambulatory Jonathan Malcolm RN NURSE CUSTOM SHOE DESIGNER AND MAKER Comment on above: Urinary Problem Start: 10-25-2021 End: 10-25-2021 Patient encounter procedure Davon Calzada MD Work Phone: [facility] Comment on above: Urticaria (Primary D x); Gastroesophageal reflux disease without esophagitis; Diabetes mellitus without complication (HCC) Start: 10-21-2021 Telephone encounter Davon jorge MD Work Phone: [facility] [place] Comment on above: Patient Update; Alannah ent Question Start: 10-12-2017 End: 10-13-2017 Ambulatory MARBELLA HOLLINS Facility:[facility] Start: 07-12-2007 End: 01-01-2012 Patient encounter status Zahra Vazquez Work Phone: [facility] Procedures Date Procedure Procedure Detail Performing Clinician [...] et rgnt auto w/o microscopy Cami Farris APRN.DISPLAY COORDINATOR Work Phone: Start: 06-12-2021 Adult depression scr eening assessment Davon Calzada MD Work Phone: Start: 09-07-2019 Colonoscopy Davon Keenan MD Work Phone: Start: 06-16-2018 Mammography Davon Keenan MD Work Phone: Urine culture Dr. Ori mart Work Phone: Plan of Treatment Date Care Activity Detail Author Start: 09-07-2029 Colonoscopy COLONOSCOPY [facility] Start: 09-07-2029 COLORECTAL CANCER SCREENING COLORECTAL CANCER SCREENING [facility] Start: 09-07-2029 Screening for malign ant neoplasm of colon [facility] Start: 07-08-2025 Diabetic foot examination Diabetic Foot Exam [facility] Start: 06-02-2025 End: 06-02-2025 Patient encounter procedure 06/02/2025 2:00 PM EDT Office Visit Podiatry [address] [place], [place] [phone] aZhra Vazquez [address] [place], [place] [phone] 3 month follow up nail care Podiatry Comment on above: 3 month follow up [facility] Start: 04-03-2025 Influenza vaccination Influenza Vacc ine (#1) [facility] Start: 11-03-2024 [facility] Start: 10-07-2024 End: 10-07-2024 Patient encounter procedure 10/07/2024 2:20 PM EST Office Visit Podiatry [address] [place], [place] [phone] Zahra aVzquez [address] [phone] 3 month follow up nail care Podiatry Comment on above: 3 month follow up [facility] care Start: 08-03-2024 Advance Directive Discussion Advance Directive Discussion [facility] Start: 08-03-2024 Medicare Advantage Annual Wellness Visit Medicare Advantage Annual Wellness Visit [facility] Start: 07-08-2024 End: 07-08-2024 Patient encounter procedure 07/08/2024 2:20 PM EST Office Visit Podiatry [address] [place] [address] Zahra Vazquez [address] [place] [address] 3 month follow up nail care Podiatry Comment on above: 3 month follow up [facility] care Start: 05-12-2024 Glaucoma screening Dilated Retinal E xam [facility] Start: 04-03-2024 Covid-19 Vaccine () Covid-19 Vaccine () [facility] Start: 04-03-2024 Influenza vaccination Influenza Vacc ine (#1) [facility] Start: 08-03-2023 Advance Directive Discussion Advance Directive Discussion [facility] Start: 08-03-2023 Depression Assessment Depression Ass essment [facility] Start: 04-03-2023 Covid-19 Vaccine () Covid-19 Vaccine () [facility] Start: 04-03-2023 Influenza vaccination C [facility] Start: 01-13-2023 End: 03-15-2023 ALBUMIN/CREAT RATIO RND UR ALBUMIN/CREAT RATIO RND UR Lab Routine Diabetes mellitus without complication (HCC) Expected: 01/13/2023, Expires: 03/15/2023 [facility] Work Phone: Comment on above: Expected: 01/13/2023 , Expires: 03/15/2023 Start: 01-13-2023 End: 03-15-2023 Hemoglobin A1c in Blood HGB A1C Lab Routine Diabetes mellitus without complication (HCC) Expected: 01/13/2023, Expires: 03/15/2023 [facility] Work Phone: Comment on above: Expected: 01/13/2023 , Expires: 03/15/2023 Start: 01-08-2023 RSV Vaccine (1 - 1-d ose 75+ series) RSV Vaccine (1 - 1-dose 75+ series) [facility] Start: 12-16-2022 ANNUAL PCP TEAM EARLY INTERVENTIONIST LIZETH DISEASE VISIT ANNUAL PCP TEAM CHRONIC DISEASE VISIT [facility] Start: 12-16-2022 BP CONTROLLED (<130/80) BP CONTROLLE D (<130/80) [facility] Start: 12-16-2022 Hepatitis B surface antibody level LDL CHOLESTEROL [facility] Start: 11-11-2022 End: 01-11-2023 ALBUMIN/CREAT RATIO RND UR ALBUMIN/CREAT RATIO RND UR Lab Routine Diabetes mellitus without complication (HCC) Expected: 11/11/2022, Expires: 01/11/2023 [facility] Work Phone: Comment on above: Expected: 11/11/2022 , Expires: 01/11/2023 Start: 11-11-2022 End: 01-11-2023 Hemoglobin A1c in Blood HGB A1C Lab Routine Diabetes mellitus without complication (HCC) Expected: 11/11/2022, Expires: 01/11/2023 [facility] Work Phone: Comment on above: Expected: 11/11/2022 , Expires: 01/11/2023 Start: 10-25-2022 ANNUAL PCP TEAM EARLY INTERVENTIONIST LIZETH DISEASE VISIT ANNUAL PCP TEAM CHRONIC DISEASE VISIT [facility] Start: 09-24-2022 ANNUAL PCP TEAM EARLY INTERVENTIONIST LIZETH DISEASE VISIT ANNUAL PCP TEAM CHRONIC DISEASE VISIT [facility] Start: 08-03-2022 ADVANCE DIRECTIVE DISCUSSION ADVANCE DIRECTIVE DISCUSSION [facility] Start: 08-03-2022 DEPRESSION ASSESSMENT DEPRESSION ASS ESSMENT [facility] Start: 06-18-2022 Hemoglobin A1c measurement HbA1C [facility] Start: 06-18-2022 Hemoglobin A1c/Hemoglobin.total in Blood HBA1C [facility] Start: 06-12-2022 Adult depression screening assessment DEPRESSION SCREENING [facility] Start: 06-12-2022 Hepatitis B screening URINE ALBUMIN:CREATININE RATIO [facility] Start: 04-03-2022 Hepatitis C antibody , confirmatory test DILATED RETINAL EXAM [facility] Start: 04-03-2022 Influenza vaccination INFLUENZA (#1) [facility] Start: 03-14-2022 3 comp foot exam completed DIABETIC FOOT EXAM [facility] Start: 03-14-2022 Diabetic foot examination Diabetic Foot Exam [facility] Start: 01-22-2022 COVID-19 VACCINE (4 - Booster for Moderna series) COVID-19 VACCINE (4 - Booster for Moderna series) [facility] Start: 01-07-2022 End: 03-09-2022 Bacteria identified in Urine by Culture URINE CULTURE Microbiology Routine Urinary frequency Dysuria Expected: 01/07/2022, Expires: 03/09/2022 [facility] Work Phone: Comment on above: Expected: 01/07/2022 , Expires: 03/09/2022 Start: 01-07-2022 End: 03-09-2022 Urinalysis complete panel - Urine URINALYSIS, WITH MICROSCOPIC Lab Routine Urinary frequency Dysuria Expected: 01/07/2022, Expires: 03/09/2022 [facility] Work Phone: Comment on above: Expected: 01/07/2022 , Expires: 03/09/2022 Start: 12-16-2021 End: 02-15-2022 Basic metabolic 2000 panel - Serum or Plasma [facility] Work Phone: Comment on above: Expected: 12/16/2021 , Expires: 02/15/2022 Start: 12-16-2021 End: 02-15-2022 Hemoglobin A1c/Hemoglobin.total in Blood [facility] Work Phone: Comment on above: Expected: 12/16/2021 , Expires: 02/15/2022 Start: 12-16-2021 End: 02-15-2022 LIPID PANEL, NONFASTING [facility] Work Phone: Comment on above: Expected: 12/16/2021 , Expires: 02/15/2022 Start: 12-10-2021 Hemoglobin A1c/Hemoglobin.total in Blood HBA1C [facility] Start: 11-27-2021 BP CONTROLLED (<130/80) BP CONTROLLE D (<130/80) [facility] Start: 11-27-2021 SHINGRIX VACCINE (1 of 2) SHINGRIX VACCINE (1 of 2) [facility] Comment on above: Postponed from 01/08 (Declined at this time) Start: 11-27-2021 Urine microalbumin profile DTAP,TDAP,TD (1 - Tdap) [facility] [facility] Comment on above: Postponed from 11/23 (Declined at this time) Start: 11-19-2021 COVID-19 VACCINE (4 - Booster for Moderna series) COVID-19 VACCINE (4 - Booster for Moderna series) [facility] Start: 11-19-2021 Covid-19 Vaccine (4 - Moderna series) Covid-19 Vaccine (4 - Moderna series) [facility] Start: 08-03-2021 ADVANCE DIRECTIVE DISCUSSION ADVANCE DIRECTIVE DISCUSSION [facility] Start: 08-03-2021 DEPRESSION ASSESSMENT DEPRESSION ASS ESSMENT [facility] Start: 03-19-2021 Hepatitis B surface antibody level LDL CHOLESTEROL [facility] Start: 06-21-2020 FECAL OCCULT BLOOD FECAL OCCULT BLOO D [facility] Start: 06-21-2020 Screening for malign ant neoplasm of colon Fecal Occult Blood [facility] Start: 06-16-2019 Mammography MAMMOGRAM [facility] Start: 2008 Hepatitis B Vaccine (1 of 3 - Risk 3-dose series) Hepatitis B Vaccine (1 of 3 - Risk 3-dose series) [facility] Start: 2008 RSV Vaccine (1 - 1-d ose 60+ series) RSV Vaccine (1 - 1-dose 60+ series) [facility] Start: 11-24-2007 Urine microalbumin profile [facility] Start: 01-08-1998 SHINGRIX VACCINE (1 of 2) SHINGRIX VACCINE (1 of 2) [facility] Start: 01-08-1993 COLOGUARD (FIT-DNA) COLOGUARD (FIT-D NA) [facility] Start: 01-08-[address] COLONOGRAPHY [facility] Start: 01-08-1993 Screening for malign ant neoplasm of colon [facility] Start: 01-08-1993 SIGMOIDOSCOPY [facility] Start: 01-08-1966 Anxiety Screening Anxiety Screening [facility] Start: 01-08-1966 Depression Screening Depression Scre ening [facility] Bacteria identified in Urine by Culture URINE CULTURE Microbiology Routine Urinary dribbling 12/05/2021 3:42 PM EDT [facility] Work Phone: Patient Education ED AFIB [facility] Work Phone: Patient referral [facility] Work Phone: End: 06-13-2023 Screening mammography bi 2-view breast inc cad YANELIS SCREENING Radiology Routine Encounter for screening mammogram for breast cancer 1 Occurrences starting 05/14/2022 until 06/13/2023 [facility] Work Phone: Comment on above: 1 Occurrences starti ng 05/14/2022 until 06/13/2023 [facility] Immunizations Immunization Date Immunization Notes Care Provider Jered howe 09-24-2021 COVID-19 vaccine, ag e 12+ yr (PFIZER-BIONTECH - BROWN TOP) Davon Calzada MD Work Phone: [facility] 06-12-2021 influenza, high-dose , quadrivalent vaccine (FLUZONE HIGH DOSE QUADRIVALENT) Davon Calzada MD Work Phone: [facility] Work Phone: 06-12-2021 influenza virus vacc ine, unspecified formulation Sarah Birmingham [facility] 05-10-2020 influenza, high-dose , quadrivalent vaccine (FLUZONE HIGH DOSE QUADRIVALENT) Davon Calzada MD Work Phone: [facility] Work Phone: 05-24-2019 influenza, high dose seasonal, preservative-free Davon Calzada MD Work Phone: [facility] 06-09-2018 influenza, high dose seasonal, preservative-free Davon Calzada MD Work Phone: [facility] 05-12-[address] Davon Calzada Work Phone: [facility] 05-12-2018 influenza, seasonal, injectable, preservative free Davon Calzada MD Work Phone: [facility] 06-12-2017 influenza, high dose seasonal, preservative-free Davon Calzada MD Work Phone: [facility] 06-20-2016 influenza, high dose seasonal, preservative-free Davon Calzada MD Work Phone: [facility] Work Phone: 12-17-2015 pneumococcal conjuga te vaccine, 13 valent Davon Calzada MD Work Phone: [facility] 06-15-2015 influenza, high dose seasonal, preservative-free Davon Calzada MD Work Phone: [facility] Work Phone: 06-06-2014 influenza, seasonal, injectable Davon Calzada MD Work Phone: [facility] 05-19-2013 influenza virus vacc ine, unspecified formulation Davon Calzada MD Work Phone: [facility] 01-25-2013 pneumococcal polysaccharide vaccine, 23 valent Davon Calzada MD Work Phone: [facility] Work Phone: 05-10-2012 influenza virus vacc ine, whole virus Davon Calzada MD Work Phone: [facility] Work Phone: 04-26-2009 influenza virus vacc ine, unspecified formulation Davon Calzada MD Work Phone: [facility] 06-02-2008 influenza virus vacc ine, whole virus Davon Calzada MD Work Phone: [facility] Work Phone: 04-06-2008 pneumococcal polysaccharide vaccine, 23 valent Davon Calzada MD Work Phone: [facility] 04-06-2008 tuberculin skin test ; purified protein derivative solution, intradermal Zahra Vazquez Work Phone: [facility] 11-23-2007 tetanus and diphther ia toxoids, adsorbed, preservative free, for adult use (2 Lf of tetanus toxoid and 2 Lf of diphtheria toxoid) Davon Calzada MD Work Phone: [facility] 06-03-2007 influenza virus vacc ine, unspecified formulation Davon Calzada MD Work Phone: [facility] Payers Date Payer Category Payer Medicaid [id number] 2024 Self-pay [id number] 2022 Medicaid [id number] 2022 Medicare (Managed Care) [facility] [id number] 2022 Unknown [id number] 2014 Unknown [id number] 2013 Medicare MEDICARE MEDICAR E A AND B [id number] 2013-Present [phone] [address] [address] [place] [address] Medicare [id number] 2013 Medicare [id number] Medicare MEDICARE PART A B [id number] Unknown [id number] Unknown [id number] 2.840.1.162203.3.579.2. 462 Unknown [id number] 2.16840.1.857552.3.579.2. 462 Unknown [id number] 2.16840.1.774494.3.579.2. 462 Unknown [id number] 2.16840.1.901032.3.579.2. 462 Unknown [id number] 2.16.840.1.890606.3.579.2. 462 Unknown [id number] 2.16.840.1.571963.3.579.2. 462 Unknown [id number] 2.16.840.1.646128.3.579.2. 462 Unknown [id number] 2.16.840.1.879742.3.579.2. 462 Unknown [id number] 2.16.840.1.542334.3.579.2. 462 Unknown [id number] 2.16.840.1.585087.3.579.2. 462 Unknown [id number] 2.16.840.1.933963.3.579.2. 462 Unknown [id number] 2.16.840.1.748011.3.579.2. 462 Unknown [id number] 2.16.840.1.265890.3.579.2. 462 Unknown [id number] 2.16.840.1.960140.3.579.2. 462 Unknown [id number] 2.16.840.1.634872.3.579.2. 462 Unknown [id number] 2.16.840.1.146025.3.579.2. 462 Unknown [id number] 2.16.840.1.909758.3.579.2. 462 Unknown [id number] 2.16.840.1.255861.3.579.2. 462 Unknown [id number] 2.16.840.1.115820.3.579.2. 462 Unknown [id number] 2.16.840.1.319603.3.579.2. 462 Social History Date Type Detail Facility Start: 05-20-2023 End: 11-03-2024 Tobacco smoking status [facility] Never smoked tobacco [facility] Work Phone: Start: 09-24-2021 End: 11-25-2024 Alcohol intake Current non-drinker of alcohol (finding) [facility] Start: 1950 Sex Assigned At Not on file [facility] Start: 10-13-2021 End: 01-21-2022 Exposure to SARS-CoV-2 (event) Not sure [facility] Start: 03-27-2022 End: 05-20-2023 Tobacco smoking status NHIS Unknown if ever smoked [facility] Start: 01-06-2019 Occasional [facility] Start: 01-06-2019 None [facility] Start: 01-04-2020 Alone [facility] Start: 09-05-2019 Non-smoker [facility] Start: 1950 Sex Assigned At Female W [facility] Start: 02-19-2022 End: 08-29-2022 History of Social function [facility] Work Phone: Start: 02-19-2022 End: 08-29-2022 Tobacco use panel [facility] Work Phone: Adult Depression Screening Assessment [address] [facility] Work Phone: Start: 10-28-2024 End: 11-03-2024 Sex Female (finding) [facility] Medical Equipment Procedure Code Equipment Code Equipment Origin al Text Equipment Identifier Dates Test blood sugar(s) 1 times daily. Dx: Type 2 DM - Controlled E11.9 Insulin: No [id number], [id number] Start: 11-27-2020 Comment on above: Test blood sugar(s) 1 times daily. Dx: Type 2 DM - Controlled E11.9 Insulin: No Functional Status Date Assessment Result Facility 02-22-2015 Are you deaf, or do you have serious difficulty hearing No 02/22/2015 10:01 AM FIDELINAT Sudha Aldana MA No [facility] 02-22-2015 Are you blind, or do you have serious difficulty seeing, even when wearing glasses No 02/22/2015 10:01 AM FIDELINAT Sudha Aldana MA No [facility] 02-22-2015 Do you have serious difficulty walking or climbing stairs No 02/22/2015 10:01 AM EDT Sudha Aldana MA No [facility] 02-22-2015 Do you have difficul ty dressing or bathing No 02/22/2015 10:01 AM EDT Sudha Aldana MA No [facility] 02-22-2015 Because of a physica l, mental, or emotional condition, do you have difficulty doing errands alone such as visiting a physician's office or shopping No 02/22/2015 10:01 AM EDT Sudha Aldana MA No [facility] Mental Status Date Assessment Result Facility 11-03-2024 Cognitive function Voice/Name [facility] Work Phone: 02-22-2015 Because of a physica l, mental, or emotional condition, do you have serious difficulty concentrating, remembering, or making decisions No 02/22/2015 10:01 AM EDT Sudha Aldana MA No [facility] Clinical Notes 09-28-2012 to 03-16-2025 Note Date & Type Note Facility 03-16-2025 Evaluation note Diagnosis Onset Date Resolution Carotid bruit chronic March 11:32am Essential (primary) hypertension chronic March 16, 2025 11:32am History of aortic valve replacement with bioprosthetic valve January, chronic March 16, 2025 11:32am HLD (hyperlipidemia) chronic 2024 11:32am Paroxysmal atrial fibrillation chronic March 16, 2025 11:32am Presence of permanent cardiac pacemaker January 07, 2019 chronic March 16, 2025 11:32am [facility] Work Phone: 1(925) 917-444207-31-2025 NoteHNO ID: [id number] Author: ZAHRA VAZQUEZ, ? Service: ? Author Type: Physician Type: Progress Notes Filed: 03/02/2025 13:06 Note Text: Last saw pcp; not in chart Subjective: Patient presents to clinic c/o painful toenails. They state that the nails are especially painful with shoe gear and pressure. Patient states that nails left 3rd toenail are painful. Patient admits to being diabetic. No other pedal complaints at this time. Patient states no change in medications or medical history since last visit. Objective: Patient presents to clinic ambulating in sneakers Vasc: DP and PT pulses are palpable bilateral. CFT is less than 5 seconds bilateral. Skin temperature is warm to cool proximal to distal bilateral. There is mild edema or varicosities noted. Neuro: Protective sensation is intact to the foot and toes when tested with the 5.07 SWM bilateral. Vibratory sensation is decreased at the hallux IPJ bilateral. The hallux is downgoing bilateral. Derm: Nails 1-5 right and 2-5 left are painful, discolored-yellow, thick, crumbly, dystrophic and with subungal debris. Skin is of normal turgor, texture and hair growth is present bilateral. There are no hyperkeratosis, ulcerations, scars, [...] left were debrided in length and thickness. Patient was instructed on the continued importance of diabetic foot care along with proper diet and keeping their blood sugar under control to prevent complications. I stressed the importance of avoiding barefoot walking, wearing good shoes and inspection of feet Patient is to RTC in 3-4 months. Zahra Vazquez [facility]07-31-2025 History of Present illness Narrative* Zahra Vazquez - 03/02/2025 12:56 PM EDT Last saw pcp; not in chart Subjective: Patient presents to clinic c/o painful toenails. They state that the nails are especially painful with shoe gear and pressure. Patient states that nails left 3rd toenail are painful. Patient admits to being diabetic. No other pedal complaints at this time. Patient states no change in medications or medical history since last visit. Objective: Patient presents to clinic ambulating in sneakers Vasc: DP and PT pulses are palpable bilateral. CFT is less than 5 seconds bilateral. Skin temperature is warm to cool proximal to distal bilateral. There is mild edema or varicosities noted. Neuro: Protective sensation is intact to the foot and toes when tested with the 5.07 SWM bilateral.Vibratory sensation is decreased at the hallux IPJ bilateral. The hallux is downgoing bilateral. Derm: Nails 1-5 right and 2-5 left are painful, discolored-yellow, thick, crumbly, dystrophic and with subungal debris. Skin is of normal turgor, texture and hair growth is present bilateral. There are no hyperkeratosis, ulcerations, scars, [...] left were debrided in length and thickness. Patient was instructed on the continued importance of diabetic foot care along with proper diet and keeping their blood sugar undercontrol to prevent complications. I stressed the importance of avoiding barefoot walking, wearing good shoes and inspection of feet Patient is to RTC in 3-4 months. Zahra Vazquez DPM * Ria Stovall MA - 03/02/2025 12:51 PM EDT Patient presents with: Left Foot - Established Patient, Follow Up, Diabetic Foot Care Right Foot - Established Patient, Follow Up, Diabetic Foot Care Patient presents for DM2 nail care. Ria Stovall MA documented in this encounterUniversity [facility] Instructions* Patient Instructions* Zahra Vazquez - 03/02/2025 12:56 PM EDT Diabetes Foot Care Instructions When you have [...] (or decreased sensation in your feet) a graphic art sales representative should always cut your toenails. Be Careful [...] Go to your health care provider or graphic art sales representative to treat these conditions. documented in this encounterUniversity [facility]07-31-2025 NoteHNO ID: [id number] Author: RIA STOVALL MA Service: ? Author Type: Tow Motor Operator Type: Progress Notes Filed: 03/02/2025 13:06 Note Text: Patient presents with: Left Foot - Established Patient, Follow Up, Diabetic Foot Care Right Foot - Established Patient, Follow Up, Diabetic Foot Care Patient presents for DM2 nail care. Ria Mares Rebeca, [facility]04-25-2025 NoteHNO ID: [id number] Author: ZAHRA VAZQUEZ, ? Service: ? Author [...] Objective: Patient presents to clinic ambulating in sneakers Vasc: DP and PT pulses are faintly [...] to RTC in 3-4 months. Zahra Vazquez [facility]04-25-2025 NoteHNO ID: [id number] Author: KATELIN BREEN, RN Service: ? Author Type: Registered Nurse Type: Progress Notes Filed: 11/25/2024 16:00 Note Text: Patient presents with: Left Foot - Established Patient, Follow Up, Diabetic Foot Care Right Foot - Established Patient, Follow Up, Diabetic Foot Care Patient presents for follow up diabetic foot/nail care. [facility] 07/08/24[facility]04-14-2025 Evaluation note* Diagnosis Onset Date Resolution Status Admit Date Carotid bruit chronic November 14, 2024 2:04pm Essential (primary) hypertension chronic November 14, 2024 2:04pm History of aortic valve replacement with bioprosthetic valve January, chronic November 14, 2024 2:04pm HLD (hyperlipidemia) chronic Apri l 2024 2:04pm Paroxysmal atrial fibrillation chron ic November 14, 2024 2:04pm Presence of permanent cardia c pacemaker January 07, 2019 chronic November 14, 2024 2:04pm [facility] Work Phone: 1(254) 987-899504-03-2025 Radiology Diagnostic study note [facility] [address] [place], [place] [address] Chest 1 View (Portable) MR#: [id number] Acct: [id number] Name: CLARI STEPHENS Rep #: [id number] : 1950 F 74 From: Reagan Gray MD PCP: Angela Manjarrez MD Status: REG ER Study:Chest 1 View (Portable) Date of Exam: 11/03/24 Exam# [id number] Ordering Dr: Jani Hale DO PROCEDURE: CHEST [...] (Portable) IMPRESSION: No Acute Findings. Reading Location: [facility] CC: Dr. Jani Hale DO; Angela Manjarrez MD ~ [facility] Manager: Signed [facility]12-06-2024 Instructions* Patient Instructions* Zahra Vazquez - 07/08/2024 [...] (or decreased sensation in your feet) a graphic art sales representative should always cut your toenails. Be Careful [...] Go to your health care provider or graphic art sales representative to treat these conditions. documented in this encounterUniversity [facility]12-06-2024 NoteHNO ID: [id number] Author: ZAHRA VAZQUEZ, ? Service: ? Author [...] to RTC in 3-4 months. Zahra Vazquez [facility]12-06-2024 History of Present illness Narrative* Zahra Vazquez [...] months. Zahra Vazquez DPM documented in this encounterUniversity Hospitals St. [facility]08-30-2024 NoteHNO ID: [id number] Author: ZAHRA VAZQUEZ, ? Service: ? Author [...] -orifice 1.1 cm2, 1+ TR, RVSP 31 [place] 02-07: rec repeat Echo in 6 mo [...] visit. ALLERGIES Allergen Reactions (more content not included)...[facility]08-30-2024 History of Present illness Narrative* Zahra Vazquez [...] 01-0906/17/2007: HYPERTENSION NOS Comment: Lisinopril started about 05 Creat 0.9 in 05-08, 07-10, 01-09 UA [...] Objective: Patient presents to clinic ambulating in [facility] Constitutional: Pt is a well developed 74 [...] Toenail Barbie Neff LPN documented in this encounterUniversity Hospitals St. [facility]08-30-2024 NoteHNO ID: [id number] Author: BARBIE NEFF LPN Service: ? Author [...] - nail care, New, Ingrown Toenail [facility] History of Present illness Narrative* Audrey Clark LPN - 10/27/2023 2:32 PM EDT POPULATION HEALTH NAVIGATION OUTREACH Action/[place]I Spoke to Patient's daughter, Clari Is currently at [facility] and is seeingthe Doctor there. Reason for Outreach Care Gap/HCC or Scheduling Wellness Visits Care Gaps due: Physical Annual Wellness Visit Follow-up Appointment Patient Contacted: Spoke to patient/parent/or legal guardian Patient identified by name and : Yes Care Gap/HCC/Scheduling Wellness actions taken: Navigation Signature: Audrey Clark LPN October 27, 2023 2:32 PM documented in this encounterUniversity [facility]als St. [facility]10-09-2023 History of Present illness Narrative* Sarah Birmingham MA - 05/11/2023 8:22 AM EDT POPULATION HEALTH NAVIGATION OUTREACH Action/FYI [facility] [employer] MESSAGE SENT ANNUAL MEDICARE WELLNESS BP Controlled (<130/80) due on 11/27/2021 HbA1C due on 06/18/2022 Advance Directive Discussion Never done Annual PCP Team Chronic Disease Visit due on 12/16/2022 Influenza Vaccine(1) due on 04/03/2023 Patient Identified by Name and : NO Outreach Outcome/Action Unable to reach patient: Left message [facility] message sent Did you use a PCP [...] 11, 2023 8:22 AM documented in this encounterUniversity Hospitals St. [facility]07-20-2022 Instructions* Patient Instructions* Indigo Mayfield APRN.CNP - 02/19/2022 8:05 AM EDT Continue use of vaginal estrogen cream and clobetasol. Call office/go to ER if you are unable to urinate documented in this encounterUniversity Hospitals St. [facility]07-20-2022 History of Present illness Narrative* Indigo Mayfield [...] resolved? Not Applicable Abnormal vaginal discharge: no Vc++ Developer offered:Patient declines OBJECTIVE: There were no vitals [...] plan Indigo Mayfield APRN.CNP documented in this encounterUniversity Hospitals St. [facility]07-06-2022 Instructions* Patient Instructions* Indigo Mayfield APRN.CNP - 02/05/2022 8:25 AM EDT Follow up in 1-2 weeks Apply pea sized amount of clobetasol cream all over vaginal opening and labia Apply 1 g of vaginal estrogen cream with finger around vaginal opening with gentle spreading of labia documented in this encounterUniversity Hospitals St. [facility]07-06-2022 History of Present illness Narrative* Indigo Mayfield [...] you received about pain medications helpful? Yes Vc++ Developer offered:Patient declines OBJECTIVE: There were no vitals [...] for review Patient expressed understanding. Indigo Mayfield APRN.DISPLAY COORDINATOR documented in this encounterUniversity Hospitals St. [facility]06-23-2022 Miscellaneous Notes* Telephone Encounter - Viral Lion [...] know. Viral Lion APRN.CNP documented in this encounterUniversity Hospitals St. [facility]06-20-2022 Miscellaneous Notes* Telephone Encounter - Agnes Whitaker - 01/20/2022 3:01 PM EDT Provider in pre-admission calling stating they still have not been able to get ahold of patient. Please advise if able to move forward with surgery tomorrow as patient has a pace maker and was supposed to be evaluated. Please advise and call pre-admission [phone] ask for Unique. Thank you * Telephone [...] Miller know. Thank you. documented in this encounterUniversity Hospitals St. [facility]06-16-2022 Miscellaneous Notes* Telephone Encounter - Zabrina Layne LPN - 01/16/2022 9:42 AM EDT Called and all reviewed with pts daughter. She requested we faxed the admission forms to Hakeem at [facility]. This was done. At this time pt still plans on coming in for appts with pcp. Did request they complete the office if this info does change. * Telephone Encounter - Davon Calzada MD - 01/15/2022 7:42 PM EDT Form completed. * Telephone Encounter - Zabrina Layne LPN - 01/14/2022 2:23 PM EDT rec'd forms from pts daughter. They are [facility] assisted living initial and annual health assessment. Printed last office note for pcp to review. documented in this encounterUniversity Hospitals St. [facility]06-13-2022 History of Present illness Narrative* Maricel Miller MD - 01/13/2022 2:30 PM EDT Female Pelvic Medicine & Reconstructive Surgery Follow-Up Clari Stephens is a 72 year old female, who presents for a follow-up of lichen planus, agglutination of labia minora, UTI and vaginal atrophy. Pt is a follow up for lichen planus. + JAVI Indigo Mayfield, DISPLAY COORDINATOR 12/25/21: Impression: Clari Stephens is a 71 [...] PFSH obtained by others. Maricel Miller MD Vc++ Developer offered: Patient declines. OBJECTIVE: There were no [...] and possible cystoscopy on ThursdayJanuary 21 at [place] 2. No pre-operative appointments needed and will sign consent on the day of surgery 3. Pt will follow-up with Indigo Mayfield 1-2 weeks postoperatively and then restart clobetasol cream and vaginal estrogen cream 4. Will re-evaluate urinary incontinence and recurrent UTIs after she has undergone labial adhesiolysis I spent 30 minutes in the visit, with more than 50% of the total [id number] time of the visit in counseling / coordination of care. This time included preparing to see the patient, [id number] patient care, completing clinical documentation, obtaining and/or reviewing separately obtained history, performing a medically appropriate examination, counseling and educating the patient/family/caregiver and ordering medications, tests, or procedures. Maricel Miller MD documented in this encounterUniversity Hospitals St. [facility]06-07-2022 Miscellaneous Notes* Telephone Encounter - Kerline Pedroza [...] know. Kerline Pedroza RN documented in this encounterUniversity Hospitals St. [facility]05-25-2022 Instructions* Patient Instructions* Indigo Mayfield APRN.CNP - 12/25/2021 9:52 AM EDT Follow up with Dr. Miller in 1 month. As you spread your labia apart nightly, apply 1 application of clobetasol cream. Twice weekly, apply vaginal estrogen cream before bed. If you cannot empty your bladder or your symptoms do not improve, call the office. documented in this encounterUniversity Hospitals St. John [facility]05-25-2022 History of Present illness Narrative* Indigo Mayfield [...] and vaginal estrogen inconsistently until her last BLOOD BANK LABORATORY TECHNOLOGIST appointment with Cami Farris CNP on 12/05/2021 [...] should follow up with UroGyn by the BLOOD BANK LABORATORY TECHNOLOGIST. 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 She has a previous history of an abnormal mammogram with benign breast biopsy LMP: No LMP recorded. Patient is postmenopausal.; Menopause yes: Menstrual history: Menarche: teens; Deliveries: I have confirmed and edited as necessary, the PFSH obtained by others. Indigo Mayfield APRN.DISPLAY COORDINATOR Vc++ Developer offered: Patient accepts, visit chaperoned by Magdalena [...] which included preparing to see the patient, [id number] patient care, completing clinical documentation, obtaining and/or reviewing separately obtained history, performing a medically appropriate examination, counseling and educating the pat ient/family/caregiver and ordering medications, tests, or procedures Indigo Mayfield APRN.DISPLAY COORDINATOR documented in this encounterUniversity Hospitals St. John [facility]05-16-2022 History of Present illness Narrative* Davon Calzada MD - 12/16/2021 2:37 PM EDT This note was created using [employer] Day[employer]. Subjective Clari Stephens is a 71 year [...] NONFASTING Davon Calzada MD documented in this encounterUniversity Hospitals St. [facility]05-12-2022 Miscellaneous Notes* Telephone Encounter - Kerline Pedroza [...] noted. Cami Farris APRN.DEEJAY documented in this encounterUniversity Hospitals St. John [facility]05-05-2022 Miscellaneous Notes* Telephone Encounter - Margoth Perry RN - 12/05/2021 4:44 PM EDT Spoke to pharmacist at [facility] and medication instructions clarified. Margoth Perry RN [...] weeks then twice weekly. documented in this encounterUniversity Hospitals St. [facility]05-05-2022 Instructions* Patient Instructions* Cami Farris APRN.DEEJAY - 12/05/2021 2:12 PM EDT Incontinence pads such as Poise. Hypoallergenic, no dyes, no fragrances. Use them only when needed. Wash and dry skin after incontinence of urine and then apply Aquaphor or A&D to protect the skin. documented in this encounterUniversity Hospitals St. John [facility]05-05-2022 History of Present illness Narrative* Cami Farris [...] correct information. Evaluated by Dr Miller, uro dust collector attendant 01/2021 - Discussed options with patient including [...] L1 SAB0 IAB0 Ectopic0 Multiple0 Live Births0 Corporate Traffic Manager History LMP: Postmenopausal Age at Menarche: Age at First : Age at Menopause: Corporate Traffic Manager History Comments: Sexual Activity: Never; No partner [...] - Follow-up appointment with Dr Miller, uro dust collector attendant 4. Lichen planus - ICD9: 697.0, ICD10: [...] which included preparing to see the patient, [id number] patient care, completing clinical documentation, obtaining and/or reviewing separately obtained history, performing a medically appropriate examination, counseling and educating the pat ient/family/caregiver, ordering medications, tests, or procedures and communicating results to the patient/family/caregiver. documented in this encounterUniversity Hospitals St. [facility]04-04-2022 Miscellaneous Notes* Telephone Encounter - Davon Calzada [...] patient. Iliana Romeo LPN documented in this encounterUniversity Hospitals St. [facility]04-02-2022 Miscellaneous Notes* Telephone Encounter - Jonathan Malcolm [...] on 11/02/2021 at 4:42 PM by Jonathan Malcolm, RN. Signed Prescriptions: Disp Refills nitrofurantoin monohydrate [...] her providers are aware Protocols used: URINARY [id number], URINATION PAIN - [id number] documented in this encounterUniversity Hospitals St. [facility]03-28-2022 History of Present illness Narrative* Davon Calzada MD - 10/28/2021 11:08 AM EDT This note was created using PubNub. Subjective Clari Stephens is a 71 year [...] medications Davon Calzada MD documented in this encounterUniversity Hospitals St. [facility]03-25-2022 Instructions* Patient Instructions* Davon Calzada MD - 10/25/2021 5:05 PM EDT SEE MEDICATION LIST FOR CHANGES. documented in this encounterUniversity Hospitals St. John [facility]03-23-2022 Miscellaneous Notes* Telephone Encounter - Miya Foley [...] prednisone one week ago today. She uses [facility] for her pharmacy if needed. * Telephone [...] never left? Please advise documented in this encounterUniversity Hospitals St. John [facility]06-07-2019 Evaluation note* Diagnosis Onset Date Resolution Status Paroxysmal atrial fibrillation chronic Presence of permanent cardiac pacemaker January 07, 2019 chronic SA node dysfunction chronic Sick sinus syndrome chronic Essential (primary) hypertension chronic History of aortic valve repl acement with bioprosthetic valve January, chronic HLD (hyperlipidemia) chronic Paroxysmal atrial fibrillation chronic Presence of permanent cardiac pacemaker January 07, [address] [facility] Work Phone: 1(563) 533-390906-07-2019 Evaluation note* Diagnosis Onset Date Resolution Status [...] January 07, [address] [facility] Work Phone: 1(768) 471-899906-07-2019 Evaluation note* Diagnosis Onset Date Resolution Status Bradycardia acute Paroxysmal atrial fibrillation chronic Presence of permanent cardiac pacemaker January 07, 2019 chronic Sick sinus syndrome chronic Essential (primary) hypertension chronic History of aortic valve repl acement with bioprosthetic valve January, chronic HLD (hyperlipidemia) chronic Paroxysmal atrial fibrillation chronic Presence of permanent cardiac pacemaker January 07, [address] [facility] Work Phone: 1(407) 813-564606-01-2013 Evaluation note* Diagnosis Onset Date Resolution Status Essential (primary) hypertension chronic History of aortic valve repl acement with bioprosthetic valve January, chronic HLD (hyperlipidemia) chronic Paroxysmal atrial fibrillation chronic Presence of permanent cardiac pacemaker January 07, [address] [facility] Work Phone: 1(961) 296-265806-01-2013 Evaluation note* Diagnosis Onset Date Resolution Status Admit Date Carotid bruit chronic March 11:32am Essential (primary) hypertension chronic March 16 11:32am History of aortic valve replacement with bioprosthetic valve January, chronic March 16, 2025 11:32am HLD (hyperlipidemia) chronic Augu st 2024 11:32am Paroxysmal atrial fibrillation chronic March 16 11:32am Presence of permanent cardia c pacemaker January 07, 2019 chronic March 16 11:32am [facility] Work Phone: 1(136) 897-701702-26-2013 History of Past illness Narrative* Problem Noted [...] -orifice 1.1 cm2, 1+ TR, RVSP 31 [place] 02-07: rec repeat Echo in 6 mo (reordered in 01-09 as pt did not do test) Echo 02-08: 65%, LVH, trivial MR, RVSP 24, mod-sev of 1 cm2 documented as of this encounter (statuses as of 10/23/2021) [facility] History of Past illness Narrative* Problem Noted [...] of this encounter (statuses as of 10/28/2021) [facility] History of Past illness Narrative* Problem Noted [...] of this encounter (statuses as of 11/02/2021) [facility] History of Past illness Narrative* Problem Noted [...] -orifice 1.1 cm2, 1+ TR, RVSP 31 [place] 02-07: rec repeat Echo in 6 mo (reordered in 01-09 as pt did not do test) Echo 02-08: 65%, LVH, trivial MR, RVSP 24, mod-sev of 1 cm2 documented as of this encounter (statuses as of 11/04/2021) [facility] of Past illness Narrative* Problem Noted [...] -orifice 1.1 cm2, 1+ TR, RVSP 31 [place] 02-07: rec repeat Echo in 6 mo (reordered in 01-09 as pt did not do test) Echo 02-08: 65%, LVH, trivial MR, RVSP 24, mod-sev of 1 cm2 documented as of this encounter (statuses as of 12/05/2021) [facility] of Past illness Narrative* Problem Noted [...] of this encounter (statuses as of 12/05/2021) [facility] of Past illness Narrative* Problem Noted [...] -orifice 1.1 cm2, 1+ TR, RVSP 31 [place] 02-07: rec repeat Echo in 6 mo (reordered in 01-09 as pt did not do test) Echo 02-08: 65%, LVH, trivial MR, RVSP 24, mod-sev of 1 cm2 documented as of this encounter (statuses as of 12/12/2021) [facility] of Past illness Narrative* Problem Noted [...] -orifice 1.1 cm2, 1+ TR, RVSP 31 [place] 02-07: rec repeat Echo in 6 mo (reordered in 01-09 as pt did not do test) Echo 02-08: 65%, LVH, trivial MR, RVSP 24, mod-sev of 1 cm2 documented as of this encounter (statuses as of 12/16/2021) [facility] of Past illness Narrative* Problem Noted [...] -orifice 1.1 cm2, 1+ TR, RVSP 31 [place] 02-07: rec repeat Echo in 6 mo (reordered in 01-09 as pt did not do test) Echo 02-08: 65%, LVH, trivial MR, RVSP 24, mod-sev of 1 cm2 documented as of this encounter (statuses as of 12/25/2021) [facility] of [facility] illness Narrative* Problem Noted [...] -orifice 1.1 cm2, 1+ TR, RVSP 31 [place] 02-07: rec repeat Echo in 6 mo (reordered in 01-09 as pt did not do test) Echo 02-08: 65%, LVH, trivial MR, RVSP 24, mod-sev of 1 cm2 documented as of this encounter (statuses as of 01/07/2022) [facility] of Past illness Narrative* Problem Noted [...] of this encounter (statuses as of 01/13/2022) [facility] of [facility] illness Narrative* Problem Noted [...] -orifice 1.1 cm2, 1+ TR, RVSP 31 [place] 02-07: rec repeat Echo in 6 mo (reordered in 01-09 as pt did not do test) Echo 02-08: 65%, LVH, trivial MR, RVSP 24, mod-sev of 1 cm2 documented as of this encounter (statuses as of 01/16/2022) [facility] of [facility] illness Narrative* Problem Noted [...] -orifice 1.1 cm2, 1+ TR, RVSP 31 [place] 02-07: rec repeat Echo in 6 mo (reordered in 01-09 as pt did not do test) Echo 02-08: 65%, LVH, trivial MR, RVSP 24, mod-sev of 1 cm2 documented as of this encounter (statuses as of 01/20/2022) [facility] of [facility] illness Narrative* Problem Noted [...] -orifice 1.1 cm2, 1+ TR, RVSP 31 [place] 02-07: rec repeat Echo in 6 mo (reordered in 01-09 as pt did not do test) Echo 02-08: 65%, LVH, trivial MR, RVSP 24, mod-sev of 1 cm2 documented as of this encounter (statuses as of 01/23/2022) [facility] of [facility] illness Narrative* Problem Noted [...] -orifice 1.1 cm2, 1+ TR, RVSP 31 [place] 02-07: rec repeat Echo in 6 mo (reordered in 01-09 as pt did not do test) Echo 02-08: 65%, LVH, trivial MR, RVSP 24, mod-sev of 1 cm2 documented as of this encounter (statuses as of 02/05/2022) [facility] of [facility] illness Narrative* Problem Noted [...] of this encounter (statuses as of 02/19/2022) [facility] Narrative* Problem Noted [...] -orifice 1.1 cm2, 1+ TR, RVSP 31 [place] 02-07: rec repeat Echo in 6 mo (reordered in 01-09 as pt did not do test) Echo 02-08: 65%, LVH, trivial MR, RVSP 24, mod-sev of 1 cm2 documented as of this encounter (statuses as of 05/19/2022) [facility] illness Narrative* Problem Noted [...] of this encounter (statuses as of 11/14/2022) [facility] of [facility] illness Narrative* Problem Noted [...] of this encounter (statuses as of 01/16/2023) [facility] illness Narrative* Problem Noted [...] -orifice 1.1 cm2, 1+ TR, RVSP 31 [place] 02-07: rec repeat Echo in 6 mo (reordered in 01-09 as pt did not do test) Echo 02-08: 65%, LVH, trivial MR, RVSP 24, mod-sev of 1 cm2 documented as of this encounter (statuses as of 05/12/2023) [facility] of [facility] illness Narrative* Problem Noted [...] of this encounter (statuses as of 10/27/2023) [facility] note* Diagnosis Urticaria- Primary Urticaria, unspecified Gastroesophageal reflux disease without esophagitis Esophageal reflux Diabetes mellitus without complication (HCC) Type II or unspecified type diabetes mellitus without mention of complication, not stated as uncontrolled documented in this encounter [facility] note* Diagnosis Dermatitis of vulva- Primary Other inflammatory disease of cervix, vagina and vulva Vulvar pruritus Pruritus of genital organs 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, vagina, 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 Lichen planus Urinary dribbling Post-void dribbling [facility] [place] [facility]* Diagnosis Essential hypertension- Primary Unspecified essential hypertension Diabetes mellitus without complication (HCC) Type II or unspecified type diabetes mellitus without mention of complication, not stated as uncontrolled Other hyperlipidemia documented in this encounter [facility] note* Diagnosis Lichen planus- Primary 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, vagina, 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 History of UTI Personal history of urinary (tract) infection Vaginal atrophy Postmenopausal atrophic vaginitis documented in this encounter [facility] note* Diagnosis Urinary frequency- Primary Dysuria documented in this encounter [facility] [place] [facility]* Diagnosis Lichen planus- Primary Vaginal atrophy 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, vagina, 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 documented in this encounter [facility] note* Diagnosis Post-operative state- Primary Other postprocedural status documented in this encounter [facility] note* Diagnosis Post-operative state- Primary Other postprocedural status Lichen planus documented in this encounter [facility] note* Diagnosis Encounter for screening mammogram for breast cancer documented in this encounter [facility] noteNo assessment information availableWParkview Health [facility] Work Phone: Evaluation note* Diagnosis Diabetes mellitus without complication (HCC) Type II or unspecified type diabetes mellitus without mention of complication, not stated as uncontrolled documented in this encounter [facility] note* Diagnosis Routine medical exam- Primary Routine [...] Pain in limb documented [facility] this encounter [facility] Diagnosis Routine medical exam- Primary Routine [...] diabetes mellitus (HCC) documented in this encounter [facility] Diagnosis Routine medical exam- Primary Routine [...] diabetes mellitus (HCC) [facility] Additional Instructions Transient runs a flutter to A-fib in the emergency department. Labs are stable. Discussed with cardiology Dr. Blanc, would like you back on your sotalol twice a day. Continue metoprolol same dose at this time. Follow-up with Dr. Dacosta.[facility] Work Phone: Reason for referral (narrative)* Diagnostic Procedure Only (Routine) - Pending Review Specialty Diagnoses / Procedures Referred By Bhavana hardin Referred To Contact [facility] Diagnoses Encounter for screening mammogram for breast cancer Procedures YANELIS SCREENING SCREENING MAMMOGRAPHY BI 2-VIEW BREAST INC CAD Davon Calzada MD [address] [place] [address] [facility] [address] [place] [address] Referral ID Status Reason Start Date Expiration Date Visits Requested Visits Authorized [id number] Pending Review Auto-Generat ed Referral 2 06/13/2023 1 1 [facility] for referral (narrative)No reason for referral information availableWParkview Health [facility] Work Phone: Summary Purpose Family History Relationship Condition Age at Onset Recorded Date/T johan mother Diabetes mellitus Unknown aunt Malignant neoplasm of breast Unknown father Malignant neoplasm Unknown Advance Directives Documents on File Type Date Recorded 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 Advance Directive(s) 01/21/2022 7:12 AM Advance Directive Response Recorded Date/ Time Advance Directives Yes October 31 10:46am Living Will No July 02 1:27pm Power of Clipper Automatic No July 02, 2021 1:27pm Advance Directive Response Recorded Date/ Time Advance Directives Yes October 31 9:46am Living Will No July 02 12:27pm Power of Clipper Automatic No July 02, 2021 12:27pm Advance Directive Response Recorded Date/ Time Advance Directives Yes October 31 10:46am Advance Directive Response Recorded Date/ Time Living Will Yes November 03, 2024 10:51am Do you have a Healthcare Power of Clipper Automatic? No November 03, 2024 10:51am Advance Directives Yes October 31 10:46am Chief Complaint and Reason for Visit Chief Complaint 3 mos remote PPM f/u SKILLED NURSING LABWORK 6 M FU Reason for Visit Paroxysmal atrial fi brillation Presence of permanent cardiac pacemaker SA node dysfunction Sick sinus syndrome Essential (primary) hypertension History of aortic valve replacement with bioprosthetic valve HLD (hyperlipidemia) Paroxysmal atrial fibrillation Presence of permanent cardiac pacemaker Sick sinus syndrome Chief Complaint SKILLED NURSING LAB WOR K Chief Complaint SKILLED NURSING LAB WOR K remote PPM f/u REMOTE CHECK SKILLED NURSING LAB WORK 6 M FU SKILLED NURSING LAB WORK Reason for Visit Presence of permanen t cardiac pacemaker SA node dysfunction Sick sinus syndrome Bradycardia Paroxysmal atrial fibrillation Presence of permanent cardiac pacemaker Sick sinus syndrome Essential (primary) hypertension History of aortic valve replacement with bioprosthetic valve HLD (hyperlipidemia) Paroxysmal atrial fibrillation Presence of permanent cardiac pacemaker Sick sinus syndrome Chief Complaint REMOTE CHECK SKILLED NURSING LAB WORK 6 M FU SKILLED NURSING LAB WORK SKILLED NURSING LABWORK AFIB Reason for Visit Bradycardia Paroxysmal atrial fibrillation Presence of permanent cardiac pacemaker Sick sinus syndrome Essential (primary) hypertension History of aortic valve replacement with bioprosthetic valve HLD (hyperlipidemia) Paroxysmal atrial fibrillation Presence of permanent cardiac pacemaker Sick sinus syndrome Chief Complaint REMOTE CHECK SKILLED NURSING LAB WORK 6 M FU SKILLED NURSING LAB WORK SKILLED NURSING LABWORK AFIB SKILLED NURSING LAB WORK Reason for Visit Bradycardia Paroxysmal atrial fibrillation Presence of permanent cardiac pacemaker Sick sinus syndrome Essential (primary) hypertension History of aortic valve replacement with bioprosthetic valve HLD (hyperlipidemia) Paroxysmal atrial fibrillation Presence of permanent cardiac pacemaker Sick sinus syndrome Chief Complaint AFIB SKILLED NURSING LAB WORK SKILLED NURSING LABWORK SKILLED NURSING LABWORK Chief Complaint SKILLED NURSING LABWORK SKILLED NURSING LABWORK Chief Complaint SKILLED NURSING LABWORK 1 Y FU SKILLED NURSING LAB WORK Reason for Visit Essential (primary) hypertension History of aortic valve replacement with bioprosthetic valve HLD (hyperlipidemia) Paroxysmal atrial fibrillation Presence of permanent cardiac pacemaker Sick sinus syndrome Chief Complaint SKILLED NURSING LABWORK 1 Y FU SKILLED NURSING LAB WORK EVAL VALVE REPLACEMENT Amb Documentation Reason for Visit Essential (primary) hypertension History of aortic valve replacement with bioprosthetic valve HLD (hyperlipidemia) Paroxysmal atrial fibrillation Presence of permanent cardiac pacemaker Sick sinus syndrome Chief Complaint 1 Y FU SKILLED NURSING LAB WORK Pacer Check Remote EVAL VALVE REPLACEMENT Amb Documentation SKILLED NURSING LABWORK Reason for Visit Essential (primary) hypertension History of aortic valve replacement with bioprosthetic valve HLD (hyperlipidemia) Paroxysmal atrial fibrillation Presence of permanent cardiac pacemaker Sick sinus syndrome Chief Complaint SKILLED NURSING LAB WOR K Pacer Check Remote EVAL VALVE REPLACEMENT Amb Documentation SKILLED NURSING LABWORK LABWORK Chief Complaint Admit Date Presence of xenogenic heart valve Decemb er 2023 1:39pm SKILLED NURSING LAB WORK August 25, 2024 5:00am Pacer Check Remote September 19, 2024 3:11am LABILE HR, TACHYCARDIA October 21, 2024 8:12am Chief Complaint Admit Date Presence of xenogenic heart valve Decemb er 2023 1:39pm SKILLED NURSING LAB WORK August 25, 2024 5:00am Pacer Check Remote September 19, 2024 3:11am LABILE HR, TACHYCARDIA October 21, 2024 8:12am LABILE HR, TACHYCARDIA October 21, 2024 8:40am AFIB November 03, 2024 10:4 1am Chief Complaint Admit Date SKILLED NURSING LAB WORK August 25, 2024 5:00am Pacer Check Remote September 19, 2024 3:11am LABILE HR, TACHYCARDIA October 21, 2024 8:12am LABILE HR, TACHYCARDIA October 21, 2024 8:40am AFIB November 03, 2024 10:4 1am S/P [facility] 11/03November 14, 2024 2:0 4pm LABWORK [...] AFIB November 03, 2024 10:4 1am S/P [facility] 11/03November 14, 2024 2:0 4pm LABWORK November 25, 2024 5:0 0am Pacer Check Remote December 19, 2024 3:11a m Chief Complaint Admit Date LABWORK November 25, 2024 5:0 0am Pacer Check Remote December 19, 2024 3:11a m SKILLED NURSING LAB WORK February 24, 2025 5: 00am 4 M March 16, 2025 11 :32am Reason for Visit Admit Date Carotid bruit March 16, 2025 11 :32am Essential (primary) hypertension March 16, 2025 11:32am History of aortic valve repl acement with bioprosthetic valve March 16, 2025 11:32am HLD (hyperlipidemia) March 16, 2025 1 1:32am Paroxysmal atrial fibrillation March 162024 11:32am Presence of permanent cardiac pacemaker March 16, 2025 11:32am Chief Complaint Admit Date LABWORK November 25, 2024 5:0 0am Pacer Check Remote December 19, 2024 3:11a m SKILLED NURSING LAB WORK February 24, 2025 5: 00am 4 M FU March 16, 2025 11 :32am Pacer Check Remote March 20, 2025 3: 26am Chief Complaint Admit Date SKILLED NURSING LAB WORK February 24, 2025 5: 00am 4 M FU March 16, 2025 11 :32am Pacer Check Remote March 20, 2025 3: 26am AFIB April 06, 2025 9:37am Additional Source Comments INFORMATION SOURCE (unrecogn ized section and content) DATE CREATED AUTHOR 01/22/2018 [facility] ([place]) DATE CREATED AUTHOR AUTHOR'S ORGANIZ ATION 01/24/2022 [facility] DATE CREATED AUTHOR AUTHOR'S ORGANIZ ATION 01/29/2022 [facility] DATE CREATED AUTHOR AUTHOR'S ORGANIZ ATION 03/04/2025 [facility] DATE CREATED AUTHOR AUTHOR'S ORGANIZ ATION 04/23/2025 [facility] Source Comments (unrecognize d section and content) In the event this informatio n is protected by the Federal Confidentiality of Alcohol and Drug Abuse Patient Records regulations: The Federal rules restrict any use of the information to criminally investigate or prosecute any alcohol or drug abuse patient.[facility] the event this information is protected by the Federal Confidentiality of Alcohol and Drug Abuse Patient Records regulations: The Federal rules restrict any use of the information to criminally investigate or prosecute any alcohol or drug abuse patient.[facility] CenterIn the event this information is protected by the Federal Confidentiality of Alcohol and Drug Abuse Patient Records regulations: The Federal rules restrict any use of the information to criminally investigate or prosecute any alcohol or drug abuse patient.[facility] CenterIn the event this information is protected by the Federal Confidentiality of Alcohol and Drug Abuse Patient Records regulations: The Federal rules restrict any use of the information to criminally investigate or prosecute any alcohol or drug abuse patient.[facility] CenterIn the event this information is protected by the Federal Confidentiality of Alcohol and Drug Abuse Patient Records regulations: The Federal rules restrict any use of the information to criminally investigate or prosecute any alcohol or drug abuse patient.[facility] CenterIn the event this information is protected by the Federal Confidentiality of Alcohol and Drug Abuse Patient Records regulations: The Federal rules restrict any use of the information to criminally investigate or prosecute any alcohol or drug abuse patient.[facility] CenterIn the event this information is protected by the Federal Confidentiality of Alcohol and Drug Abuse Patient Records regulations: The Federal rules restrict any use of the information to criminally investigate or prosecute any alcohol or drug abuse patient.[facility] CenterIn the event this information is protected by the Federal Confidentiality of Alcohol and Drug Abuse Patient Records regulations: The Federal rules restrict any use of the information to criminally investigate or prosecute any alcohol or drug abuse patient.[facility] CenterIn the event this information is protected by the Federal Confidentiality of Alcohol and Drug Abuse Patient Records regulations: The Federal rules restrict any use of the information to criminally investigate or prosecute any alcohol or drug abuse patient.[facility] CenterIn the event this information is protected by the Federal Confidentiality of Alcohol and Drug Abuse Patient Records regulations: The Federal rules restrict any use of the information to criminally investigate or prosecute any alcohol or drug abuse patient.[facility] CenterIn the event this information is protected by the Federal Confidentiality of Alcohol and Drug Abuse Patient Records regulations: The Federal rules restrict any use of the information to criminally investigate or prosecute any alcohol or drug abuse patient.[facility] CenterIn the event this information is protected by the Federal Confidentiality of Alcohol and Drug Abuse Patient Records regulations: The Federal rules restrict any use of the information to criminally investigate or prosecute any alcohol or drug abuse patient.[facility] CenterIn the event this information is protected by the Federal Confidentiality of Alcohol and Drug Abuse Patient Records regulations: The Federal rules restrict any use of the information to criminally investigate or prosecute any alcohol or drug abuse patient.[facility] CenterIn the event this information is protected by the Federal Confidentiality of Alcohol and Drug Abuse Patient Records regulations: The Federal rules restrict any use of the information to criminally investigate or prosecute any alcohol or drug abuse patient.[facility] CenterIn the event this information is protected by the Federal Confidentiality of Alcohol and Drug Abuse Patient Records regulations: The Federal rules restrict any use of the information to criminally investigate or prosecute any alcohol or drug abuse patient.[facility] CenterIn the event this information is protected by the Federal Confidentiality of Alcohol and Drug Abuse Patient Records regulations: The Federal rules restrict any use of the information to criminally investigate or prosecute any alcohol or drug abuse patient.[facility] CenterIn the event this information is protected by the Federal Confidentiality of Alcohol and Drug Abuse Patient Records regulations: The Federal rules restrict any use of the information to criminally investigate or prosecute any alcohol or drug abuse patient.[facility] CenterIn the event this information is protected by the Federal Confidentiality of Alcohol and Drug Abuse Patient Records regulations: The Federal rules restrict any use of the information to criminally investigate or prosecute any alcohol or drug abuse patient.[facility] CenterIn the event this information is protected by the Federal Confidentiality of Alcohol and Drug Abuse Patient Records regulations: The Federal rules restrict any use of the information to criminally investigate or prosecute any alcohol or drug abuse patient.[facility] CenterIn the event this information is protected by the Federal Confidentiality of Alcohol and Drug Abuse Patient Records regulations: The Federal rules restrict any use of the information to criminally investigate or prosecute any alcohol or drug abuse patient.[facility] CenterIn the event this information is protected by the Federal Confidentiality of Alcohol and Drug Abuse Patient Records regulations: The Federal rules restrict any use of the information to criminally investigate or prosecute any alcohol or drug abuse patient.[facility] CenterIn the event this information is protected by the Federal Confidentiality of Alcohol and Drug Abuse Patient Records regulations: The Federal rules restrict any use of the information to criminally investigate or prosecute any alcohol or drug abuse patient.[facility] CenterIn the event this information is protected by the Federal Confidentiality of Alcohol and Drug Abuse Patient Records regulations: The Federal rules restrict any use of the information to criminally investigate or prosecute any alcohol or drug abuse patient.[facility] CenterIn the event this information is protected by the Federal Confidentiality of Alcohol and Drug Abuse Patient Records regulations: The Federal rules restrict any use of the information to criminally investigate or prosecute any alcohol or drug abuse patient.[facility] Reason for Visit (unrecogniz ed section and [...] Reason Comments Follow Up Diabetic Foot Care Reason Comments Established Patient Follow Up Diabetic Foot Care Care Teams (unrecognized sec tion and content) Timber Framer Helper Relationship Specialty Start Date End Date Davon Calzaad MD [address] [place] [address] PCP - General 09/03/09 Timber Framer Helper Relationship Specialty Start Date End Date Davon Calzada MD [address] [place], [place] [id number] PCP - General 09/03/09 Timber Framer Helper Relationship Specialty Start Date End Date Davon Calzada MD [address] [facility] [place] [address] PCP - General 09/03/09 Timber Framer Helper Relationship Specialty Start Date End Date Davon Calzada MD [address] [facility] [place] [address] PCP - General 09/03/09 Timber Framer Helper Relationship Specialty Start Date End Date Davon Calzada MD [address] [facility] [place] [address] PCP - General 09/03/09 Timber Framer Helper Relationship Specialty Start Date End Date Davon Calzada MD [address] [facility] [place] [address] PCP - General 09/03/09 Timber Framer Helper Relationship Specialty Start Date End Date Davon Calzada MD [address] [facility] [place] [place] [address] PCP - General 09/03/09 Timber Framer Helper Relationship Specialty Start Date End Date Davon Calzada MD [address] [facility] [place] [place] [address] PCP - General 09/03/09 Timber Framer Helper Relationship Specialty Start Date End Date Davon Calzada MD [address] [facility] [place] [place] [address] PCP - General 09/03/09 Timber Framer Helper Relationship Specialty Start Date End Date Davon Calzada MD [address] [facility] [place] [address] PCP - General 09/03/09 Timber Framer Helper Relationship Specialty Start Date End Date Davon Calzada MD [address] [facility] [place] [address] PCP - General 09/03/09 Team Status: Active Member Role Status Dates Dr. Davon Calzada MD Family Provider Active Team Status: Inactive Member Role Status Dates Blanca Kaufman PRODUCTION SUPPORT ENGINEER, PRODUCTION SUPPORT ENGINEER-C Attending Provider Active Team Status: Inactive Member Role Status Dates Suzanna Bateman Attending Provider Active Team Status: Inactive Member Role Status Dates Suzanna Bateman Active Dr. Ori Torres MD Attending Provider Active Team Status: Inactive Member Role Status Dates Dr. Angela NORRIS MD Attending Provider, Referring Provider Active Team Status: Inactive Member Role Status Dates Dr. Angela NORRIS MD Attending Provider Active Timber Framer Helper Relationship Specialty Start Date End Date Davon Calzada MD [address] [place], [place] [id number] [facility] - General 09/03/09 Team Status: Active Member Role Status Dates Dr. Davon Calzada MD Family Provider Active Dr. Angela Manjarrez MD Primary Care Provider Active Team Status: Active Member Role Status Dates Blanca Kaufman PRODUCTION SUPPORT ENGINEER, PRODUCTION SUPPORT ENGINEER-C Attending Provider, Referring P rovider Active Dr. Angela Manjarrez MD Primary Care Provider Active Team Status: Active Member Role Status Dates Dr. Angela Manjarrez MD Primary Care Provider Active Dr. Angela NORRIS MD Attending Provider Active Team Status: Inactive Member Role Status Dates Blanca Kaufman PRODUCTION SUPPORT ENGINEER, PRODUCTION SUPPORT ENGINEER-C Attending Provider, Referring P rovider Active Dr. Angela Manjarrez MD Primary Care Provider Active Team Status: Inactive Member Role Status Dates Dr. Angela Manjarrez MD Primary Care Provider Active Dr. Angela NORRIS MD Attending Provider Active Timber Framer Helper Relationship Specialty Start Date End Date Davon Calzada MD [address] [place] [address] [facility] - General 09/03/09 Team Status: Inactive Member Role Status Dates Blanca Kaufman PRODUCTION SUPPORT ENGINEER, PRODUCTION SUPPORT ENGINEER-C Attending Provider Active Dr. Angela Manjarrez MD [...] MD Primary Care Provider Active Blanca Kaufman PRODUCTION SUPPORT ENGINEER, PRODUCTION SUPPORT ENGINEER-C Attending Provider Active Team Status: Inactive Member Role Status Dates Dr. Angela Manjarrez MD Primary Care Provider Active Blanca Kaufman PRODUCTION SUPPORT ENGINEER, PRODUCTION SUPPORT ENGINEER-C Attending Provider, Referring P mouna Active Team Status: Inactive Member Role Status [...] 2024 End: October 21, 2024 Marbella Gomez PRODUCTION SUPPORT ENGINEER, PRODUCTION SUPPORT ENGINEER-C Attending Provider Active S tart: October 21, 2024 End: October 21, 2024 Marbella Gomez PRODUCTION SUPPORT ENGINEER, PRODUCTION SUPPORT ENGINEER-C Referring Provider Active S tart: October 21, 2024 End: October 21, 2024 Team Status: Active Member Role Status Dates Dr. Angela Manjarrez MD Primary Care Provider Active Start: October 21, 2024 Dr. Rubio Blanc MD Attending Provider Active S tart: October 21, 2024 Marbella Gomez PRODUCTION SUPPORT ENGINEER, PRODUCTION SUPPORT ENGINEER-C Referring Provider Active S tart: October 21, [...] 2024 End: November 14, 2024 Blanca Kaufman PRODUCTION SUPPORT ENGINEER, PRODUCTION SUPPORT ENGINEER-C Attending Provider Active Start: November 14, 2024 [...] December 19, 2024 End: December 19, 2024 Team Status: Active Member Role/Relationship Status Dates Dr. Angela Manjarrez MD Primary Care Provider Active Team Status: Inactive Member Role/Relationship Status Dates Dr. Angela Manjarrez MD Primary Care Provider Active Start: November 25, 2024 End: November 25, 2024 Dr. Angela NORRIS MD Attending Provider Active Start: November 25, 2024 End: November 25, 2024 Team Status: Inactive Member Role/Relationship Status Dates Dr. Angela Manjarrez MD Primary Care Provider Active Start: December 19, 2024 End: December 19, 2024 Dr. Rubio Blanc MD Attending Provider Active S tart: December 19, 2024 End: December 19, 2024 Team Status: Active Member Role/Relationship Status Dates Dr. Angela Manjarrez MD Primary Care Provider Active Start: February 24, 2025 Dr. Angela NORRIS MD Attending Provider Active Start: February 24, 2025 Team Status: Inactive Member Role/Relationship Status Dates Dr. Angela Manjarrez MD Primary Care Provider Active Start: March 16, 2025 End: March 16, 2025 Dr. Angela Manjarrez MD Referring Provider Active Start: March 16, 2025 End: March 16, 2025 Marbella Gomez PRODUCTION SUPPORT ENGINEER, PRODUCTION SUPPORT ENGINEER-C Attending Provider Active S tart: March 16, 2025 End: March 16, 2025 Team Status: Active Member Role/Relationship Status Dates Marbella Gomez PRODUCTION SUPPORT ENGINEER, PRODUCTION SUPPORT ENGINEER-C Primary Care Provider Active Team Status: Inactive Member Role/Relationship Status Dates Marbella Gomez PRODUCTION SUPPORT ENGINEER, PRODUCTION SUPPORT ENGINEER-C Primary Care Provider Active Start: March 20, 2025 End: March 20, 2025 Dr. Rubio Blanc MD Attending Provider Active S tart: March 20, 2025 End: March 20, 2025 Team Status: Active Member Role/Relationship Status Dates Dr. Angela Manjarrez MD Primary care physician Active Team Status: Active Member Role/Relationship Status Dates Dr. Angela Manjarrez MD Primary care physician Active Start: February 24, 2025 Dr. Angela NORRIS MD Attending physician Active Start: February 24, 2025 Team Status: Inactive Member Role/Relationship Status Dates Dr. Angela Manjarrez MD Primary care physician Active Start: March 16, 2025 End: March 16, 2025 Dr. Angela Manjarrez MD Referring Provider Active Start: March 16, 2025 End: March 16, 2025 Marbella Gomez PRODUCTION SUPPORT ENGINEER, PRODUCTION SUPPORT ENGINEER-C Attending physician Active Start: March 16, 2025 End: March 16, 2025 Team Status: Inactive Member Role/Relationship Status Dates Marbella Gomez PRODUCTION SUPPORT ENGINEER, PRODUCTION SUPPORT ENGINEER-C Primary care physician Active Start: March 20, 2025 End: March 20, 2025 Dr. Rubio Blanc MD Attending physician Active Start: March 20, 2025 End: March 20, 2025 Team Status: Inactive Member Role/Relationship Status Dates Marbella Gomez PRODUCTION SUPPORT ENGINEER, PRODUCTION SUPPORT ENGINEER-C Attending physician Active Start: April 06, 2025 End: April 06, 2025 Marbella Gomez PRODUCTION SUPPORT ENGINEER, PRODUCTION SUPPORT ENGINEER-C Referring Provider Active S tart: April 06, 2025 End: April 06, 2025 Dr. Angela Manjarrez MD Primary care physician Active Start: April 06, 2025 End: April 06, 2025 Team Status: Active Member Role/Relationship Status Dates Dr. Angela Manjarrez MD Primary care physician Active Start: April 06, 2025 Dr. Mark Dacosta MD Attending physician Active Start: April 06, 2025 Goals (unrecognized section and content) Goals may [...] BE BASED ON THE PRIMARY CLINICAL RECORDS. [facility]. provides no warranty or guarantee of the accuracy or completeness of information in this document.
[2025-05-26 11:15] LABS: Hematocrit 33.8 % (37-47); Hemoglobin 10.8 g/dL (12.0-15.0); Immature Granulocytes Count 0.040 X10^3/uL (0.0-0.0); Mean Corp Hgb Conc 32.0 g/dL (32-36); Mean Corpuscular Volume 90.6 fL (81-99); Mean Platelet Vol. 11.6 fl (6.2-12.0); NRBC Flagged by Analyzer 0 % (0-5); Platelet Count 179 K/mm3 (150-450); RBC Distribution Width CV 15.4 % (11.6-14.6); RBC Distribution Width SD 50.8 fl (35.1-43.9); Red Blood Count 3.73 M/mm3 (4.2-5.4); White Blood Count 8.2 K/mm3 (4.4-11.0)
[2025-05-26 12:05] LABS: AST(SGOT) 24 U/L (<=31); Alanine Aminotransfer ALT/SGPT 17 U/L (<=34); Albumin, Serum 3.5 g/dL (3.4-4.8); Alkaline Phosphatase 103 U/L (35-104); Anion Gap 11 (5-15); BUN 22 mg/dL (4-19); BUN/Creat Ratio 26.8 RATIO (10-20); Calcium,Total 9.8 mg/dL (7.6-11.0); Carbon Dioxide 20.4 mmol/L (21.0-32.0); Chloride 110 mmol/L (98-108); Cholesterol 153 mg/dL (<=200); Globulin 2.8 g/dL (2.2-4.2); Glucose 156 mg/dL (70-99); Low Density Lipoprotein Calc. 80 mg/dL; Potassium 4.4 mmol/L (3.3-5.1); Triglycerides 175 mg/dL; Very Low Density Lipoprotein 35 mg/dL (5-40); cholesterol:hdl ratio screen 3.51
== END ==
LOC: OLS.SWAL 05:00
PROVIDERS: PCP Internal Medicine; Visit Provider Internal Medicine
DX: E11.9 Type 2 diabetes mellitus without complications (principal); I10 Essential (primary) hypertension; Z79.899 Other long term (current) drug therapy
CPT/HCPCS: 36415; 80053; 80061; 83036; 84443; 85025